=== PATIENT | female | born 1955 | race Caucasian/White ===

== ENCOUNTER 2017-05-15 11:04 | Inpatient (IN) ==
--- NOTE | 2017-05-15 11:27 | History & Physical Report ---
Date of Encounter: 05/15/17 Time of Encounter: 11:26 24 Hour HP Update - Instructions Instructions: If the History and Physical is less than 30 days old and was completed prior to A.M. admission and or procedure and has NOT been updated on calendar day of procedure please complete this update prior to performing procedure. - Update Patient reports changes in Medical Condition: No Changes in examination, assessment, or condition: No Changes in Medication: No Preop tests/diagnostics Reviewed: Yes Surgery Remains Indicated: Yes Consent for Planned Operative Procedure(s) Verified: Yes - Pre-Operative Checklist Preoperative Checklist Indicated: Yes Prophylactic Antibiotic Ordered: Yes Home Medications Include Beta Brad: No Beta Brad Taken Today (Day of Surgery): No Beta Brad Taken Yesterday (Day Prior to Surgery): No Is VTE Prophylaxis Indicated?: Yes
[2017-05-15] MEDS ORDERED: Lidocaine -MPF 1% 2 ML VIAL ID ONE (12:01)
[2017-05-15] MEDS ORDERED: Albuterol 2.5 MG/3 ML NEBULIZER IH ONE (12:02)
[2017-05-15] MEDS: Ringers Solution, Lactated 1,000 ML IVC SCH ×2 (12:19→19:44)
--- NOTE | 2017-05-15 12:21 | Anesthesia Evaluation PreOp ---
Date of Encounter: 05/15/17 Time of Encounter: 12:19 - Past History Planned Operation: l cea Cardiac History: HTN, Hyperlipidemia, Other (cad. echo 02/06: ef 60, nl rv, no valve dz. 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 History: CVA (prior to r cea, speech and balance diff, resolved), Other ( bipolar, lumbar arthropathy, doppler: L ICA 80-99%; ulnar neuropathy lue,) Other Medical History: Diabetes Type II (resolved?) Anesthesia History: No Prior Anesthetic Complications, Past Anesthesia (bilat le stents, cscope, r cea,) Alcohol Use: none Drug use: none Medications and Allergies Albuterol Sulfate [Ventolin Hfa] 2 puff IH Q4H PRN 01/26/16 [History] Aspirin [Adult Low Dose Aspirin EC] 81 mg PO HS 01/26/16 [History] Cyclobenzaprine [Flexeril] 10 mg PO QPM 01/26/16 [History] Doxazosin Mesylate [Cardura] 8 mg PO BID 01/26/16 [History] SUMAtriptan succinate [Imitrex] 50 mg PO ONCE PRN MDD 100 01/26/16 [History] Simvastatin [Zocor] 40 mg PO HS 01/26/16 [History] clonazePAM [Klonopin] 10 mg PO DAILY 01/26/16 [History] lamoTRIgine [Lamictal] 300 mg PO DAILY 01/26/16 [History] Clopidogrel [Plavix] 75 mg PO DAILY #30 tablet 02/02/16 [Rx] Nicotine Patch [Nicoderm] 14 mg TD DAILY #30 patch.td24 02/02/16 [Rx] Bisoprolol/HCTZ 10/6.25 [Ziac 10/6.25] 1 each PO BID 04/25/17 [History] Budesonide/Formoterol 80/4.5 [Symbicort 80/4.5] 2 puff IH BIDR 04/25/17 [ History] Cilostazol [Pletal] 100 mg PO BID 04/25/17 [History] Doxepin [Sinequan] 50 mg PO HS 04/25/17 [History] Doxepin [Sinequan] 50 mg PO HS 04/25/17 [History] Ibuprofen [Motrin] 800 mg PO Q8HR PRN 04/25/17 [History] RisperiDONE [Risperidone Odt] 1 mg PO DAILY PRN 04/25/17 [History] Venlafaxine HCl [Venlafaxine HCl ER] 150 mg PO DAILY 04/25/17 [History] Allergies Penicillins Allergy (Verified 03/22/16 06:50) Hives - Meds/Allergy Pre-op Review Medications Reviewed: Yes Allergies Reviewed: Yes Beta Blockers on Current Med List: No Anesthesia Results - Labs Laboratory Tests 05/07/17 05/07/17 05/14/17 14:32 14:32 08:43 Hgb Hct Plt Count PT 11.5 INR 1.1 APTT 50.6 H Sodium 135 L Potassium 3.9 Creatinine 0.81 05/14/17 08:43 Hgb 13.5 Hct 39.3 Plt Count 165 PT INR APTT Sodium Potassium Creatinine - Imaging EKG: report reviewed (sr) Anesthesia Exam O2 Sat Height 1.6 m Height 1.6 m Weight 88.904 kg Weight 88.904 kg O2 Sat by Pulse Oximetry 93 Vital Signs Temp Pulse Resp BP Pulse Ox 98.1 F 73 18 127/67 93 05/15/17 11:26 05/15/17 11:26 05/15/17 11:26 05/15/17 11:26 05/15/17 11:26 Height: 1.6 Weight: 89 NPO (# of Hours): >8 - HEENT Pupil (Motor): Pupils equal, EOMI Mallampati: III Teeth: Poor dentition Oral Opening: Greater than 3 - COMPOSITE LAMINATOR LOC: Oriented COMPOSITE LAMINATOR Motor: Normal RUE, Normal LUE, Normal RLE, Normal LLE, Normal Face COMPOSITE LAMINATOR Sensory: Normal: RUE, LUE, RLE, LLE, Face - Cardiac Rhythm: Regular Murmur: None - Pulmonary Breath Sounds: bilateral Clear Respiratory Effort: Symmetrical Anesthesia Assess/Plan ASA Score: 3 Modified Ramiro Scale for Level of Consciousness: Cooperative, oriented, and tranquil Anesthetic Plan: General Autologous Blood: Yes Monitoring Plan: Standard Monitors, A-Line Recovery Plan: PACU
[2017-05-15] MEDS ORDERED: CeFAZolin Pre 2,000 MG/100 ML 2,000 MG/100 ML BAG IVPB ONE (12:26)
[2017-05-15] MEDS ORDERED: Heparin 1,000 UNITS/500 mL NS 500 ML ONE (12:38)
[2017-05-15] MEDS ORDERED: Lidocaine 1% 20 ML MDV ONE ×2 (12:41→13:12)
[2017-05-15] MEDS ORDERED: Heparin 1,000 UNITS/500 mL NS 1,000 ML ONE (12:42)
[2017-05-15] MEDS ORDERED: Lidocaine -MPF 1% 5 ML AMPUL ONE (13:11)
[2017-05-15] MEDS ORDERED: Dexamethasone 4 MG/ML VIAL ONE (13:43)
[2017-05-15] MEDS ORDERED: *HR* Propofol 200 MG/20 ML VIAL IVP ONE (13:43)
[2017-05-15] MEDS ORDERED: *HR* FentaNYL (PF) 100 MCG/2 ML VIAL ONE (13:43)
[2017-05-15] MEDS ORDERED: Lidocaine -MPF 2% 2 ML VIAL ONE (13:43)
[2017-05-15] MEDS ORDERED: *HR* Phenylephrine 10 MG/ML VIAL ONE ×2 (13:43→15:10)
[2017-05-15] MEDS ORDERED: Ondansetron 4 MG/2 ML VIAL ONE (13:43)
[2017-05-15] MEDS ORDERED: *HR* Remifentanil 2 MG VIAL IVP ONE ×2 (13:43→18:05)
[2017-05-15] MEDS ORDERED: *HR* Rocuronium Bromide 50 MG/5 ML VIAL ONE (13:43)
[2017-05-15] MEDS ORDERED: Lidocaine -MPF 4% 5 ML AMPUL ONE (13:43)
[2017-05-15] MEDS ORDERED: *HR* Midazolam HCl 2 MG/2 ML VIAL ONE (13:43)
[2017-05-15] MEDS ORDERED: *HR* Succinylcholine 200 MG/10 ML VIAL IVP ONE (13:43)
[2017-05-15] MEDS ORDERED: *HR* Midazolam HCl 5 MG/5 ML VIAL IVP ONE (14:17)
--- NOTE | 2017-05-15 14:20 | Anesthesia Procedures ---
Date of Encounter: 05/15/17 Time of Encounter: 14:18 Procedures: Anesthesia - Arterial Line Consent obtained: written consent Time out performed: Yes Sedation: Versed (mg): 4 Sedation: Fentanyl (mcg): 100 Supplemental Oxygen via Nasal Cannula (L/min): 2 Local Anesthetic: Lidocaine 1% Amount of Anesthetic used (mls): 3 Size (Gauge): 20 Length (inches): 1 3/4 Technique Used: sterile prep, guide wire technique Post-Procedure: line taped into place, dry sterile dressing placed Patient tolerated procedure: well Complications: other (unable to access r radial or r ulnar 2/2 severe atherosclerosis, small vessels. considered femoral but pt has ble stents. forced to place l radial a line on operative side under u/s guidance) Site: Radial L Vitals: see or note
[2017-05-15] MEDS ORDERED: EPHEDrine 50 MG/ML VIAL ONE (14:30)
--- NOTE | 2017-05-15 14:36 | Operative Note ---
Date of procedure: 05/15/17 Pre-op diagnosis: left carotid stenosis Post-op diagnosis: same Procedure: left carotid endarteretomy with Fr shunt and patch angioplasty Complications: none Anesthesia: CARRIEA Surgeon: Mckay Pina Estimated blood loss (cc): 200 Specimen: none Condition: stable Disposition: PACU Procedure in Detail: History Faith Mace is a 62-year-old white female with a history of diabetes and multiple vascular risk factors. She has had multiple procedures in the past including lower extremity interventions as well as a right carotid endarterectomy. The patient has been followed without duplex scanning. This demonstrated a significant change in the left internal carotid artery. The patient underwent angiography and this demonstrated an occluded left external carotid artery and a high-grade stenosis of the left internal carotid artery. The patient now comes to the operating room for surgery. Procedure After informed consent was obtained the patient was taken to the operating room. An arterial line was placed. There was difficulty obtaining the arterial access. The patient was then introduced and general endotracheal anesthesia was established. The left neck was then sterilely prepped and draped. A timeout protocol was observed. An oblique incision was then made on the left neck. The patient's neck was very short ends. Difficult. The dissection was also difficult because a number of veins were present and there was some degree of venous hypertension present as well. The bifurcation was also low and a portion of the omohyoid muscle needed to be divided in order to satisfactorily exposed the common carotid artery. After this relatively tedious dissection was finally accomplished and the carotid arteries were dissected and selectively controlled 5000 units of heparin were administered intravenously. After 3 minute delay the internal carotid artery was clamped first. The other vessels were then clamped. Blood blade knife and Velázquez scissors were used to open the artery. An 8 Serbian shunt was then inserted atraumatically. Patency of the shunt was confirmed by the use of intraoperative Doppler. Evaluation the plaque revealed a very dense plaque that was partially calcified at the orifice of the internal carotid artery. The external carotid artery appeared occluded. The endarterectomy was begun at the distal common carotid artery. A dissection plane was established. This was carried circumferentially. The dissection was then carried proximally distally. The external carotid and superior thyroid were endarterectomized. Retrograde bleeding was established from the left external carotid artery. The internal carotid artery requiring extension of the arteriotomy in order to satisfactorily visualize the endpoint. After this was done no tacking sutures were necessary. Likewise the proximal arteriotomy required extension onto the common carotid artery. Again there was a significant amount of plaque that was able to be debrided and endarterectomized in no tacking sutures were necessary. A heme shield patch was then sewn into position using 2 6-0 Prolene sutures. Leaving a small space open the shunt was clamped divided and removed. The final few sutures were then placed. The internal was allowed to backbleed and reclamped. The external and common were opened and finally the internal was reopened. The patient had excellent pulsations and Doppler signals through all 3 of the carotid arteries. The patient however had significant oozing through the needle holes. A prolonged period of over 40 minutes of application of topical thrombostatic agents as well as administration of 2 doses of protamine were necessary in order to stop this oozing and control the localized bleeding. The wound was then irrigated with antibiotic containing solution. A superficial cervical block using half percent Marcaine was performed. The wound was then closed in layers using absorbable suture. No drains were placed. The patient was reversed anesthesia and excreted in the operating room. She was found to be neurologically intact. She was taken to the recovery room in stable condition. Estimated blood loss for the procedure was 200 mL. There are no specimens.
[2017-05-15] MEDS ORDERED: *HR* Heparin 5,000 UNIT/ML VIAL ONE ×2 (15:37→16:49)
[2017-05-15] MEDS ORDERED: *HR* Labetalol 20 MG/4 ML SYRINGE IVP PRN (16:06)
[2017-05-15] MEDS ORDERED: *HR* HYDROmorphone (PF) 1 MG/ML SYRINGE IVP PRN (16:06)
[2017-05-15] MEDS ORDERED: Ondansetron 4 MG/2 ML VIAL IVP ONE (16:06)
[2017-05-15] MEDS ORDERED: *HR* Promethazine 25 MG/ML VIAL IVP PRN (16:06)
[2017-05-15] MEDS ORDERED: Protamine Sulfate 50 MG/5 ML VIAL IVP ONE (17:28)
[2017-05-15] MEDS ORDERED: Acetaminophen IV 1,000 MG/100 ML INFUS..BTL IVPB ONE (19:32)
--- NOTE | 2017-05-15 19:53 | Anesthesia Evaluation Post Op ---
Date of Encounter: 05/15/17 Time of Encounter: 19:53 - Vital Signs Vital Signs: Vital Signs/O2 Sat, Most Current Temp Pulse Resp BP Pulse Ox 98.6 F 70 16 103/48 92 05/15/17 19:34 05/15/17 19:44 05/15/17 19:44 05/15/17 19:44 05/15/17 19:44 - Lungs Lungs: Clear Ascult./Percussion - Cardiovascular Regular Rate - Mental Status Mental Status: Alert & Oriented, Answers Appropriately - Pain Pain Scale: 5 Pain Scale used: Numeric (1 - 10) - Nausea Vomiting Nausea Vomiting: Not Present - Hydration Hydration: NPO, Unable to void - Discharge PostOp Status: Transfer Patient to floor
[2017-05-15] MEDS ORDERED: SUMAtriptan succinate 50 MG TABLET PO PRN (20:17)
[2017-05-15] MEDS ORDERED: Ibuprofen 800 MG TABLET PO PRN (20:17)
[2017-05-15] MEDS ORDERED: Acetaminophen 325 MG TABLET PO PRN (20:17)
[2017-05-15] MEDS ORDERED: *HR* Morphine 2 MG/ML SYRINGE IVP PRN ×2 (20:17)
[2017-05-15] MEDS ORDERED: ceFAZolin 2,000 MG in D5% in Water 100 ML IVPB SCH (20:17)
[2017-05-15] MEDS ORDERED: RisperiDONE-M 1 MG TAB.RAPDIS PO PRN (20:17)
[2017-05-15] MEDS ORDERED: Naloxone 0.4 MG/ML INJ IVP PRN (20:17)
[2017-05-15] MEDS ORDERED: Ondansetron 4 MG/2 ML VIAL IVP PRN (20:17)
[2017-05-15] MEDS ORDERED: Aspirin Enteric Coated 81 MG Tablet PO SCH (21:00)
[2017-05-15] MEDS: Budesonide/Formoterol 80/4.5 MDI IH SCH (21:02)
[2017-05-15] MEDS: *HR* HYDROcodone/Acet 5/325 mg TABLET PO PRN (21:24)
[2017-05-15] MEDS: clonazePAM 1 MG TABLET PO PRN (21:29)
[2017-05-15] MEDS: Bisoprolol/HCTZ 10/6.25 TABLET PO SCH (21:39)
[2017-05-16] MEDS: *HR* HYDROcodone/Acet 7.5/325 mg TABLET PO PRN ×2 (02:21→12:27)
[2017-05-16 04:14] LABS: Hemoglobin 10.2 g/dL (11.5-15.4); Immature Granulocytes % 0.2 % (0-4); Lymphocytes # 0.6 K/mcL (0.6-4.6); Lymphocytes % 10.4 %; Mean Corpuscular HGB Conc 32.9 g/dL (31.6-35.5); Mean Corpuscular Hemoglobin 31.6 pg (28.0-33.3); Mean Platelet Volume 9.4 fL (9.4-12.4); Monocytes # 0.3 K/mcL (0.0-1.3); Monocytes % 4.3 %; Platelet Count 139 K/mcL (140-400); Red Blood Count 3.23 M/mcL (3.82-4.97); Red Cell Distribution Width 12.9 % (11.5-14.5); Segmented Neutrophils % 85.1 %
[2017-05-16 04:27] LABS: BUN/Creatinine Ratio 20 (6-26); Blood Urea Nitrogen 16 mg/dL (7-20); Calcium 8.9 mg/dL (8.6-10.8); Carbon Dioxide 28 mEq/L (19-29); Chloride 99 mEq/L (98-109); Glucose 138 mg/dL (70-99); Osmolality,Calculated 281 (280-300); Potassium 4.3 mEq/L (3.5-4.5); Sodium 134 mEq/L (136-145); eGFR For African Americans > 60 (> 60); eGFR For Non-African Americans > 60 (> 60)
[2017-05-16] MEDS: ceFAZolin 2,000 MG in D5% in Water 100 ML IVPB SCH ×2 (06:15→15:00)
[2017-05-16] MEDS: Budesonide/Formoterol 80/4.5 MDI IH SCH (08:00)
[2017-05-16] MEDS: clonazePAM 1 MG TABLET PO PRN (08:08)
[2017-05-16] MEDS: *HR* HYDROcodone/Acet 5/325 mg TABLET PO PRN ×2 (08:12→15:53)
[2017-05-16] MEDS: Bisoprolol/HCTZ 10/6.25 TABLET PO SCH (08:15)
[2017-05-16] MEDS ORDERED: lamoTRIgine 100 MG TABLET PO SCH (09:00)
[2017-05-16] MEDS ORDERED: Nicotine 14 MG PATCH.TD24 TD SCH (09:00)
[2017-05-16 11:29] VITALS: BP 96/53
--- NOTE | 2017-05-16 15:45 | Discharge Summary ---
Date of Encounter: 05/16/17 Time of Encounter: 14:30 - Discharge Diagnosis (1) Diabetes mellitus type 2 with complications Priority: Secondary Status: Chronic Comments: Patient under medical care for long-term diabetes Qualifiers: Diabetes mellitus fpc insulin use: without fpc use Qualified Code(s): E11.8 - Type 2 diabetes mellitus with unspecified complications (2) COPD (chronic obstructive pulmonary disease) Priority: Secondary Status: Chronic Comments: Patient under medical care for long-term COPD Qualifiers: COPD type: unspecified COPD Qualified Code(s): J44.9 - Chronic obstructive pulmonary disease, unspecified (3) Carotid artery stenosis with cerebral infarction Priority: Primary Status: Acute Comments: High grade left internal carotid artery stenosis and external carotid artery occlusion on duplex and angiographic evaluation. Patient is status post right carotid endarterectomy in 2016. Patient admitted for elective left carotid endarterectomy. - Discharge Medications Home Medications: Albuterol Sulfate [Ventolin Hfa] 2 puff IH Q4H PRN 01/26/16 [History] Aspirin [Adult Low Dose Aspirin EC] 81 mg PO HS 01/26/16 [History] Cyclobenzaprine [Flexeril] 10 mg PO QPM 01/26/16 [History] Doxazosin Mesylate [Cardura] 8 mg PO BID 01/26/16 [History] SUMAtriptan succinate [Imitrex] 50 mg PO ONCE PRN MDD 100 01/26/16 [History] Simvastatin [Zocor] 40 mg PO HS 01/26/16 [History] clonazePAM [Klonopin] 1 mg PO TID PRN 01/26/16 [History] lamoTRIgine [Lamictal] 100 mg PO DAILY 01/26/16 [History] Clopidogrel [Plavix] 75 mg PO DAILY #30 tablet 02/02/16 [Rx] Nicotine Patch [Nicoderm] 14 mg TD DAILY #30 patch.td24 02/02/16 [Rx] Bisoprolol/HCTZ 10/6.25 [Ziac 10/6.25] 1 each PO BID 04/25/17 [History] Budesonide/Formoterol 80/4.5 [Symbicort 80/4.5] 2 puff IH BIDR 04/25/17 [ History] Cilostazol [Pletal] 100 mg PO BID 04/25/17 [History] Doxepin [Sinequan] 50 mg PO HS 04/25/17 [History] Ibuprofen [Motrin] 800 mg PO Q8HR PRN 04/25/17 [History] RisperiDONE [Risperidone Odt] 1 mg PO DAILY PRN 04/25/17 [History] Citalopram Hydrobromide [Celexa] 40 mg PO DAILY 05/15/17 [History] HYDROcodone/Acet 7.5/325 mg [[place] 7.5-325 mg] 1 tab PO Q6H PRN 05/15/17 [ History] Allergies/Adverse Reactions: Allergies Penicillins Allergy (Verified 05/15/17 12:40) Hives Date of admission: 05/15/17 20:17 Primary care physician: Natalio Martinez CNP Consults: 05/16/17 07:54 Consult to [employer] [CONS] Routine Reason for SW Consult: Requires Home O2, potential discharge this date Procedure(s) Performed: Left carotid endarterectomy with patch angioplasty. Discharging clinician: Mckay Pina Anticipated date of discharge: 05/16/17 - Patient Status Disposition: Home, Self-Care Condition: Fair Functional capacity at discharge: independent ambulation Overall status at discharge: patient is progressing back to baseline - Discharge Instructions Follow Up With: Natalio Martinez CNP [Primary Care Provider] - (SENT REQUEST ON 05-15-17 @ [id number]) Mckay Pina MD [Partnered Physician] - 06/04/17 8:45 am Additional Instructions: Use ice pack on left neck for the next 3-4 days. Sleep with head elevated for the next 3-4 days area No automobile driving, lifting greater than 10 pounds, or manual labor. Patient is to resume her usual home medications. Patient is to keep her left neck incision dry for total of 5 days following surgery. Patient is to take incentive spirometer home with her into use for the next 2 weeks approximate 1010 times per hour while awake. - Diet and Activity Activity: increase activity as tolerated Diet: diabetic diet - Hospital Course Hospital course: Ms. Mace is a 62 year old female With known severe vascular disease. The patient has had a right carotid endarterectomy 2016. She has had multiple lower extremity interventions. She has a history of tobacco abuse and COPD and hypertension and hyperlipidemia and diabetes. The patient was admitted and underwent a left carotid endarterectomy under general endotracheal anesthesia. The patient was neurologically intact postoperatively. She was stable on the afternoon of postoperative day #1. Of note the patient's O2 was low and off of O2 supplementation her O2 saturation would sometimes drifted below 90%. She adamantly refused O2 therapy at home and this was therefore not instituted. The patient was felt fit for discharge on the afternoon of postoperative day #1. Her medications and diet and exercise and wound care were reviewed with the patient prior to discharge. The patient voiced understanding of these issues. - Time Spent with Patient Total time spent providing and/or coordinating discharge services: Exam Vital Signs, Last 4 Hours Temp Pulse Resp BP Pulse Ox 05/16/17 12:00 98.0 F 84 16 96/53 90 05/16/17 11:57 16 90 General: Present: Conversant, No Apparent Distress, Well developed, Well nourished HEENT: Present: Normocephaly, Trachea midline, Other (The patient has mild to moderate swelling of the left neck with ecchymosis present. She has a chronic Plavix taker and the ecchymosis is expected in this clinical circumstances. The swelling does not compromise the patient's airway.) Cardiac: Present: Reg Rate and Rhythm. Absent: No Murmur (Patient has a 3/6 systolic ejection murmur heard best over the aortic valve position.) Lungs: Present: Decreased breath sounds Neuro: Present: Alert and responsive, No focal deficits noted, Cranial nerves grossly intact, Motor nerves grossly intact, Sensory nerves grossly intact Vascular: Present: Surgical incisions (Left neck surgical incision is clean and dry. As noted elsewhere the patient has some ecchymosis as expected with her Plavix use.) - VTE Documentation of Mechanical Device: Intermittent pneumatic compression device
== END 2017-05-16 16:40 | disposition home or self-care (01) | DRG 39 ==
LOC: SAMDAY 11:04 → 1NENULAB 20:17 → 2NNU 20:28
PROVIDERS: ADMIT Surgery Vascular Surgery; ATTEND Surgery Vascular Surgery

== ENCOUNTER 2017-06-04 09:13 | Inpatient (IN) ==
--- NOTE | 2017-06-04 09:18 | Emergency Department Note ---
Disposition Clinical Impression: CHF exacerbation, COPD exacerbation, Dyspnea Disposition: Admitted As Inpatient Condition: Good General Adult HPI - General Stated complaint: C/P Time Seen by Provider: 06/04/17 09:14 - Related Data Home Medications Medication Instructions Recorded Confirmed Albuterol Sulfate [Ventolin Hfa] 2 puff IH Q4H PRN 01/26/16 06/04/17 Aspirin [Adult Low Dose Aspirin EC] 81 mg PO HS 01/26/16 06/04/17 Cyclobenzaprine [Flexeril] 10 mg PO QPM 01/26/16 06/04/17 Doxazosin Mesylate [Cardura] 8 mg PO BID 01/26/16 06/04/17 SUMAtriptan succinate [Imitrex] 50 mg PO ONCE PRN MDD 100 01/26/16 06/04/17 Simvastatin [Zocor] 40 mg PO HS 01/26/16 06/04/17 clonazePAM [Klonopin] 1 mg PO TID PRN 01/26/16 06/04/17 lamoTRIgine [Lamictal] 100 mg PO DAILY 01/26/16 06/04/17 Bisoprolol/HCTZ 10/6.25 [Ziac 1 tab PO BID 04/25/17 06/04/17 10/6.25] Budesonide/Formoterol 80/4.5 2 puff IH BIDR 04/25/17 06/04/17 [Symbicort 80/4.5] Cilostazol [Pletal] 100 mg PO BID 04/25/17 06/04/17 Doxepin [Sinequan] 50 mg PO HS 04/25/17 06/04/17 Ibuprofen [Motrin] 800 mg PO Q8HR PRN 04/25/17 06/04/17 RisperiDONE [Risperidone Odt] 1 mg PO DAILY PRN 04/25/17 06/04/17 Citalopram Hydrobromide [Celexa] 40 mg PO DAILY 05/15/17 06/04/17 HYDROcodone/Acet 7.5/325 mg [[place] 1 tab PO Q6H PRN 05/15/17 06/04/17 7.5-325 mg] Previous Rx's Medication Instructions Recorded Clopidogrel [Plavix] 75 mg PO DAILY #30 tablet 02/02/16 Allergies Allergy/AdvReac Type Severity Reaction Status Date / Time Penicillins Allergy Hives Verified 05/15/17 12:40 Past Medical History - Past Medical History Medical history: Reports: COPD, diabetes, hyperlipidemia, hypertension, migraine , peripheral artery disease Surgical history: Reports: other Psychiatric history: Reports: anxiety, bipolar, depression - Social History Smoking Status: Current every day smoker Smokeless Tobacco Status: No Alcohol use: Reports: none Drug use: Reports: none Course Vital Signs Temperature 97.9 F 06/04/17 09:17 Pulse Rate 71 06/04/17 09:17 Respiratory Rate 18 06/04/17 09:17 Blood Pressure 157/84 06/04/17 09:17 O2 Sat by Pulse Oximetry 89 06/04/17 09:17 Temperature 98.2 F 06/04/17 16:14 Pulse Rate 90 06/04/17 16:14 Respiratory Rate 20 06/04/17 16:14 Blood Pressure 119/74 06/04/17 16:14 O2 Sat by Pulse Oximetry 89 06/04/17 16:14 Oxygen Delivery Oxygen Delivery Nasal Cannula Medical Decision Making - Lab Data Result diagrams: 06/04/17 09:27 06/04/17 10:19 Lab Results 06/04/17 06/04/17 06/04/17 Range/Units 09:27 09:27 09:27 WBC 5.8 (4.3-11.1) K/mcL RBC 3.73 L (3.82-4.97) M/mcL Hgb 11.7 (11.5-15.4) g/dL Hct 35.7 (35.3-44.9) % MCV 95.7 (83.0-100.0) fL MCH 31.4 (28.0-33.3) pg MCHC 32.8 (31.6-35.5) g/dL RDW 13.2 (11.5-14.5) % Plt Count 209 (140-400) K/mcL MPV 9.4 (9.4-12.4) fL Immature Gran % 0.5 (0-4) % Seg Neutrophils % 78.8 % Lymphocytes % 15.0 % Monocytes % 5.7 % Eosinophils % 0.0 % Basophils % 0.0 % Neutrophils # 4.6 (1.6-8.9) K/mcL Lymphocytes # 0.9 (0.6-4.6) K/mcL Monocytes # 0.3 (0.0-1.3) K/mcL Eosinophils # 0.0 (0.0-0.6) K/mcL Basophils # 0.0 (0.0-0.2) K/mcL PT 12.2 H (9.4-12.1) Seconds INR 1.1 APTT 41.0 H (26.0-36.0) Seconds D-Dimer 2634 H (0-500) ng/mLFEU Sodium (136-145) mEq/L Potassium (3.5-4.5) mEq/L Chloride (98-109) mEq/L Carbon Dioxide (19-29) mEq/L BUN (7-20) mg/dL Creatinine (0.57-1.11) mg/dL Est GFR ( Amer) (> 60) Est GFR (Non-Af Amer) (> 60) BUN/Creatinine Ratio (6-26) Glucose (70-99) mg/dL Calculated Osmolality (280-300) Calcium (8.6-10.8) mg/dL Troponin I (0-0.03) ng/mL B-Natriuretic Peptide 354 H (0-100) pg/mL Specimen Rejected 06/04/17 06/04/17 06/04/17 Range/Units 09:27 10:19 10:19 WBC (4.3-11.1) K/mcL RBC (3.82-4.97) M/mcL Hgb (11.5-15.4) g/dL Hct (35.3-44.9) % MCV (83.0-100.0) fL MCH (28.0-33.3) pg MCHC (31.6-35.5) g/dL RDW (11.5-14.5) % Plt Count (140-400) K/mcL MPV (9.4-12.4) fL Immature Gran % (0-4) % Seg Neutrophils % % Lymphocytes % % Monocytes % % Eosinophils % % Basophils % % Neutrophils # (1.6-8.9) K/mcL Lymphocytes # (0.6-4.6) K/mcL Monocytes # (0.0-1.3) K/mcL Eosinophils # (0.0-0.6) K/mcL Basophils # (0.0-0.2) K/mcL PT (9.4-12.1) Seconds INR APTT (26.0-36.0) Seconds D-Dimer (0-500) ng/mLFEU Sodium 128 L (136-145) mEq/L Potassium 3.7 (3.5-4.5) mEq/L Chloride 92 L (98-109) mEq/L Carbon Dioxide 30 H (19-29) mEq/L BUN 12 (7-20) mg/dL Creatinine 0.65 (0.57-1.11) mg/dL Est GFR ( Amer) > 60 (> 60) Est GFR (Non-Af Amer) > 60 (> 60) BUN/Creatinine Ratio 18 (6-26) Glucose 109 H (70-99) mg/dL Calculated Osmolality 266 L (280-300) Calcium 9.2 (8.6-10.8) mg/dL Troponin I 0.02 (0-0.03) ng/mL B-Natriuretic Peptide (0-100) pg/mL Specimen Rejected Hemolyzed Attestation Statement - Attestation Attestation: I examined this patient and my medical decision-making was reviewed with the QUALITY ASSISTANT/PA/Advanced Practice Nurse/Resident Physician. I agree with the documented findings, disposition and treatment plan as described except to the extent set forth below. [id number] time provided Patient complains of dyspnea. She is visibly dyspneic at the time of my exam. She also complains of edema. Patient seen and evaluated in conjunction with the resident physician Dr. Ribeiro
[2017-06-04] MEDS ORDERED: methylPREDNISolone 125 MG in 0.9 % Sodium Chloride 100 ML IVPB ONE (09:28)
[2017-06-04] MEDS ORDERED: Ipratropium/Albuterol Neb 3 ML IH ONE (09:28)
[2017-06-04] MEDS ORDERED: methylPREDNISolone 125 MG/2 ML VIAL IVP ONE (09:45)
[2017-06-04 09:47] LABS: INR 1.1; Prothrombin Time 12.2 Seconds (9.4-12.1)
--- NOTE | 2017-06-04 09:47 | Emergency Department Note ---
Disposition Clinical Impression: COPD exacerbation CHF exacerbation Qualifiers: Congestive heart failure type: unspecified congestive heart failure type Qualified Code(s): I50.9 - Heart failure, unspecified Dyspnea Qualifiers: Dyspnea type: unspecified Qualified Code(s): R06.00 - Dyspnea, unspecified Disposition: Admitted As Inpatient Condition: Good Referrals: Natalio Martinez CNP [Primary Care Provider] - General Adult HPI - General Chief complaint: ED Chest Pain Stated complaint: C/P Time Seen by Provider: 06/04/17 09:14 Source: patient Limitations: no limitations Nursing Notes Reviewed: Yes Vital Signs Reviewed: Yes - History of Present Illness HPI Narrative: 62-year-old female who reports 2-3 days of worsening dyspnea with exertion. She also admits to a tight feeling in her chest. She has a significant past medical history of diabetes, COPD, hyperlipidemia. In addition she just had a left carotid endarterectomy on May 15. She is not having increasing pain. She admits to generalized edema which is new and the shortness of breath. She is also had a dry cough which has not been productive. She denies having a fever. Her current medications include albuterol, aspirin, Flexeril, Imitrex, statin, Klonopin, doxepin, risperidone, Mcgraw. She does have a history of COPD and has been using her albuterol without much effect Radiation: non-radiation Pain Scale: 4 Consistency: constant Worsens with: movement Associated symptoms: Reports: denies other symptoms Treatments Prior to Arrival: none - Related Data Home Medications Medication Instructions Recorded Confirmed Albuterol Sulfate [Ventolin Hfa] 2 puff IH Q4H PRN 01/26/16 05/15/17 Aspirin [Adult Low Dose Aspirin EC] 81 mg PO HS 01/26/16 05/15/17 Cyclobenzaprine [Flexeril] 10 mg PO QPM 01/26/16 05/15/17 Doxazosin Mesylate [Cardura] 8 mg PO BID 01/26/16 05/15/17 SUMAtriptan succinate [Imitrex] 50 mg PO ONCE PRN MDD 100 01/26/16 05/15/17 Simvastatin [Zocor] 40 mg PO HS 01/26/16 05/15/17 clonazePAM [Klonopin] 1 mg PO TID PRN 01/26/16 05/15/17 lamoTRIgine [Lamictal] 100 mg PO DAILY 01/26/16 05/15/17 Bisoprolol/HCTZ 10/6.25 [Ziac 1 each PO BID 04/25/17 05/15/17 10/6.25] Budesonide/Formoterol 80/4.5 2 puff IH BIDR 04/25/17 05/15/17 [Symbicort 80/4.5] Cilostazol [Pletal] 100 mg PO BID 04/25/17 05/15/17 Doxepin [Sinequan] 50 mg PO HS 04/25/17 05/15/17 Ibuprofen [Motrin] 800 mg PO Q8HR PRN 04/25/17 05/15/17 RisperiDONE [Risperidone Odt] 1 mg PO DAILY PRN 04/25/17 05/15/17 Citalopram Hydrobromide [Celexa] 40 mg PO DAILY 05/15/17 05/15/17 HYDROcodone/Acet 7.5/325 mg [[place] 1 tab PO Q6H PRN 05/15/17 05/15/17 7.5-325 mg] Previous Rx's Medication Instructions Recorded Clopidogrel [Plavix] 75 mg PO DAILY #30 tablet 02/02/16 Allergies Allergy/AdvReac Type Severity Reaction Status Date / Time Penicillins Allergy Hives Verified 05/15/17 12:40 All systems ED: reviewed and negative except as stated. Constitutional: Denies: fever Eyes: Denies: vision change ENT ED: Denies: throat pain Cardiovascular: Reports: edema, other (Chest pressure). Denies: chest pain Respiratory: Reports: cough, dyspnea Gastrointestinal: Denies: abdominal pain, nausea, vomiting Musculoskeletal: Denies: back pain Integumentary: Denies: rash Endocrine: Denies: fatigue Past Medical History - Past Medical History Medical history: Reports: COPD, diabetes, hyperlipidemia, hypertension, migraine , peripheral artery disease Surgical history: Reports: other Psychiatric history: Reports: anxiety, bipolar, depression - Social History Smoking Status: Current every day smoker Smokeless Tobacco Status: No Alcohol use: Reports: none Drug use: Reports: none Physical Exam - General Limitations: no limitations General appearance: alert - Head Head exam: atraumatic - Eye Eye exam: Present: normal appearance, PERRL, EOMI - ENT ENT exam: normal exam - Neck Neck exam: Present: normal inspection - Respiratory Respiratory exam: Present: other (Diminished breath sounds bilaterally. Some wheezing is present) - Cardiovascular Cardiovascular exam: Present: regular rate, normal rhythm - Abdominal Exam Abdominal exam: Present: soft, Non-Tender - Extremities Exam Extremities exam: Present: other (3+ lower extremity edema) - Neurological Exam Neurological exam: Present: alert, oriented X3 - Psychiatric Psychiatric exam: Present: normal affect, normal mood - Skin Skin exam: Present: warm, dry Course Course Narrative: I concerned that she has developed congestive heart failure. She does not have a known cardiac history. We will do a d-dimer to rule out pulmonary embolism as she is low clinical suspicion. In addition we will do a cardiac workup. She also seems to be having a flare of her COPD and we will treat her with nebulizers and Solu-Medrol. Her SPO2 is 89% on room air. She does not wear oxygen at home. During her last hospital stay her SPO2 was between 90 and 92%. D dimer elevated, will CTA chest. Creatinine is normal. Will give lasix and topical nitroglycerin for CHF exacerbation. CTA of the chest is pending. The patient will be admitted to the hospitalist service. She feels significantly better after the duo nebs and Solu-Medrol CTA is negative for PE. CHF is present. Vital Signs Temperature 97.9 F 06/04/17 09:17 Pulse Rate 71 06/04/17 09:17 Respiratory Rate 18 06/04/17 09:17 Blood Pressure 157/84 06/04/17 09:17 O2 Sat by Pulse Oximetry 89 06/04/17 09:17 Temperature 97.9 F 06/04/17 09:17 Pulse Rate 70 06/04/17 11:11 Respiratory Rate 18 06/04/17 12:06 Blood Pressure 166/74 06/04/17 12:06 O2 Sat by Pulse Oximetry 97 06/04/17 11:11 Oxygen Delivery Oxygen Delivery Nasal Cannula Medical Decision Making - Medical Records Medical records reviewed: Yes I reviewed the patient's medical records. - Lab Data Lab results reviewed: Yes I reviewed the patient's lab results. Result diagrams: 06/04/17 09:27 06/04/17 10:19 Lab Results 06/04/17 06/04/17 06/04/17 Range/Units 09:27 09:27 09:27 WBC 5.8 (4.3-11.1) K/mcL RBC 3.73 L (3.82-4.97) M/mcL Hgb 11.7 (11.5-15.4) g/dL Hct 35.7 (35.3-44.9) % MCV 95.7 (83.0-100.0) fL MCH 31.4 (28.0-33.3) pg MCHC 32.8 (31.6-35.5) g/dL RDW 13.2 (11.5-14.5) % Plt Count 209 (140-400) K/mcL MPV 9.4 (9.4-12.4) fL Immature Gran % 0.5 (0-4) % Seg Neutrophils % 78.8 % Lymphocytes % 15.0 % Monocytes % 5.7 % Eosinophils % 0.0 % Basophils % 0.0 % Neutrophils # 4.6 (1.6-8.9) K/mcL Lymphocytes # 0.9 (0.6-4.6) K/mcL Monocytes # 0.3 (0.0-1.3) K/mcL Eosinophils # 0.0 (0.0-0.6) K/mcL Basophils # 0.0 (0.0-0.2) K/mcL PT 12.2 H (9.4-12.1) Seconds INR 1.1 APTT 41.0 H (26.0-36.0) Seconds D-Dimer 2634 H (0-500) ng/mLFEU Sodium (136-145) mEq/L Potassium (3.5-4.5) mEq/L Chloride (98-109) mEq/L Carbon Dioxide (19-29) mEq/L BUN (7-20) mg/dL Creatinine (0.57-1.11) mg/dL Est GFR ( Amer) (> 60) Est GFR (Non-Af Amer) (> 60) BUN/Creatinine Ratio (6-26) Glucose (70-99) mg/dL Calculated Osmolality (280-300) Calcium (8.6-10.8) mg/dL Troponin I (0-0.03) ng/mL B-Natriuretic Peptide 354 H (0-100) pg/mL Specimen Rejected 06/04/17 06/04/17 06/04/17 Range/Units 09:27 10:19 10:19 WBC (4.3-11.1) K/mcL RBC (3.82-4.97) M/mcL Hgb (11.5-15.4) g/dL Hct (35.3-44.9) % MCV (83.0-100.0) fL MCH (28.0-33.3) pg MCHC (31.6-35.5) g/dL RDW (11.5-14.5) % Plt Count (140-400) K/mcL MPV (9.4-12.4) fL Immature Gran % (0-4) % Seg Neutrophils % % Lymphocytes % % Monocytes % % Eosinophils % % Basophils % % Neutrophils # (1.6-8.9) K/mcL Lymphocytes # (0.6-4.6) K/mcL Monocytes # (0.0-1.3) K/mcL Eosinophils # (0.0-0.6) K/mcL Basophils # (0.0-0.2) K/mcL PT (9.4-12.1) Seconds INR APTT (26.0-36.0) Seconds D-Dimer (0-500) ng/mLFEU Sodium 128 L (136-145) mEq/L Potassium 3.7 (3.5-4.5) mEq/L Chloride 92 L (98-109) mEq/L Carbon Dioxide 30 H (19-29) mEq/L BUN 12 (7-20) mg/dL Creatinine 0.65 (0.57-1.11) mg/dL Est GFR ( Amer) > 60 (> 60) Est GFR (Non-Af Amer) > 60 (> 60) BUN/Creatinine Ratio 18 (6-26) Glucose 109 H (70-99) mg/dL Calculated Osmolality 266 L (280-300) Calcium 9.2 (8.6-10.8) mg/dL Troponin I 0.02 (0-0.03) ng/mL B-Natriuretic Peptide (0-100) pg/mL Specimen Rejected Hemolyzed - Radiology Data Radiology results reviewed: Yes I reviewed the patient's radiology results. - EKG Data EKG #1 EKG attestation: Yes I reviewed and interpreted this EKG. EKG shows normal: sinus rhythm Rate: normal Rhythm: NSR When compared to previous EKG there are: no significant changes Interpretation: no acute changes
[2017-06-04 10:02] LABS: Hematocrit 35.7 % (35.3-44.9); Hemoglobin 11.7 g/dL (11.5-15.4); Immature Granulocytes % 0.5 % (0-4); Lymphocytes # 0.9 K/mcL (0.6-4.6); Mean Corpuscular HGB Conc 32.8 g/dL (31.6-35.5); Mean Corpuscular Hemoglobin 31.4 pg (28.0-33.3); Mean Corpuscular Volume 95.7 fL (83.0-100.0); Mean Platelet Volume 9.4 fL (9.4-12.4); Monocytes # 0.3 K/mcL (0.0-1.3); Monocytes % 5.7 %; Neutrophils # 4.6 K/mcL (1.6-8.9); Platelet Count 209 K/mcL (140-400); Red Blood Count 3.73 M/mcL (3.82-4.97); Red Cell Distribution Width 13.2 % (11.5-14.5); Segmented Neutrophils % 78.8 %
[2017-06-04 10:46] LABS: BUN/Creatinine Ratio 18 (6-26); Blood Urea Nitrogen 12 mg/dL (7-20); Calcium 9.2 mg/dL (8.6-10.8); Carbon Dioxide 30 mEq/L (19-29); Chloride 92 mEq/L (98-109); Glucose 109 mg/dL (70-99); Osmolality,Calculated 266 (280-300); Potassium 3.7 mEq/L (3.5-4.5); Sodium 128 mEq/L (136-145); eGFR For African Americans > 60 (> 60); eGFR For Non-African Americans > 60 (> 60)
[2017-06-04] MEDS ORDERED: Nitroglycerin 1 INCH/GM PACKET TP ONE (10:50)
[2017-06-04] MEDS ORDERED: Furosemide 40 MG/4 ML VIAL IVP ONE (10:50)
[2017-06-04] MEDS ORDERED: Ondansetron ODT 4 MG TAB.RAPDIS SL PRN (12:59)
[2017-06-04] MEDS ORDERED: Naloxone 0.4 MG/ML INJ IVP PRN (12:59)
[2017-06-04] MEDS ORDERED: Acetaminophen 325 MG TABLET PO PRN (12:59)
[2017-06-04] MEDS ORDERED: RisperiDONE-M 1 MG TAB.RAPDIS PO PRN (13:05)
[2017-06-04] MEDS ORDERED: Albuterol 2.5 MG/3 ML NEBULIZER IH PRN (13:08)
--- NOTE | 2017-06-04 13:24 | Internal Med History&Physical ---
Date of Encounter: 06/05/17 Time of Encounter: 13:21 Assessment and Plan (1) Acute congestive heart failure Current visit: Yes Status: Acute Patient presented with increasing dyspnea and swelling over the last several days. Chest x-ray and CTA consistent with congestive heart failure BNP elevated to 354. EKG showed normal sinus rhythm with no significant changes from previous. Lasix IV push 40 mg twice a day daily weights strict I/Os cardiac diet with 1.5L fluid restriction echocardiogram consult to cardiology Qualifiers: Congestive heart failure type: unspecified congestive heart failure type Qualified Code(s): I50.9 - Heart failure, unspecified (2) COPD (chronic obstructive pulmonary disease) Current visit: Yes Status: Chronic Patient with COPD. She is having dyspnea, more consistent with new onset CHF than COPD. However, will give duonebs QID, albuterol nebulizer Q2hr PRN, budesonide/formotorol BID. Qualifiers: COPD type: unspecified COPD Qualified Code(s): J44.9 - Chronic obstructive pulmonary disease, unspecified (3) Hypertension Current visit: Yes Status: Acute Continue home doses of ZIac and Cardura. Nitro paste applied as well. Cardiology consulted for new onset CHF. Qualifiers: Hypertension type: essential hypertension Qualified Code(s): I10 - Essential (primary) hypertension (4) Peripheral vascular disease Current visit: Yes Status: Acute Patient with multiple stents to BLE and carotid endarterectomies bilaterally. Most recently had a left carotid endarterectomy 3 weeks ago. Continue aspirin, plavix and Pletal. Follow up with Dr. Rees as an outpatient. (5) DVT prophylaxis Current visit: No Status: Acute anti-embolic stockings Lovenox 40mg SQ daily Internal Medicine - H&P: HPI Chief complaint: shortness of breath Admitted From: Emergency Dept Plans for Post Hospital Care: Home History of present illness: Ms. Mace is a 62 year old female with hypertension, hyperlipidemia, COPD, peripheral vascular disease, history of CVA, presents emergency department today with complaints of increasing shortness of breath and swelling over the last several days. Patient reports that she first noted swelling about 4 days ago which has been progressively getting worse with swelling around her eyes and her legs. She states that yesterday she noted that she could not walk from one room of her house to another without getting significantly short of breath and needing to stop and rest. This morning she noted some chest tightness and she presented to a previously scheduled doctor's appointment today where they sent her to the emergency room due to these complaints. She reports occasional lightheadedness, mild nausea, poor appetite, constipation, a cough for the last week productive of clear sputum. She denies any palpitations, numbness or tingling, abdominal pain, vomiting, fever. Evaluation in the emergency department included a chest x-ray which showed mild bilateral congestive changes. BNP was elevated to 354. D-dimer was also elevated to 2634 so his CTA was obtained, which showed no pulmonary embolism, and findings consistent with mild CHF with bilateral pleural effusions and interstitial pulmonary edema. EKG showed normal sinus rhythm with no changes from previous. She is hyponatremic with sodium 128. She was given 40 mg of IV push Lasix, topical nitroglycerin, DuoNeb treatment, and Solu-Medrol. On exam, patient alert and oriented, in no acute distress. Heart had regular rate and rhythm. She had periorbital edema, bilateral lower extremity +2 pitting edema. Lungs were diminished with mild crackles in the bases. Past Med Surg Social Fam HX - Past Medical History Medical history: COPD, diabetes, hyperlipidemia, hypertension, migraine, peripheral artery disease Psychiatric history: anxiety, bipolar, depression - Past Surgical History Surgical History: carotid endarterectomy, other, vascular surgery (bilateral carotid endarterectomies, multiple stents to BLE), LE stent (s), LE vascular intervention - Social History Smoking Status: Former smoker (45 Pack year history) Smokeless Tobacco Status: No Alcohol use: none Drug use: none - Family History Mother Living Status: Age at : 76 Hx Family Cardiac Disorders: Yes (CHF) Father Living Status: Hx Family Cardiac Disorders: Yes (CHF) Internal Medicine - H&P: Meds Albuterol Sulfate [Ventolin Hfa] 2 puff IH Q4H PRN 01/26/16 [History] Aspirin [Adult Low Dose Aspirin EC] 81 mg PO HS 01/26/16 [History] Cyclobenzaprine [Flexeril] 10 mg PO QPM 01/26/16 [History] Doxazosin Mesylate [Cardura] 8 mg PO BID 01/26/16 [History] SUMAtriptan succinate [Imitrex] 50 mg PO ONCE PRN MDD 100 03/04/16 [History] Simvastatin [Zocor] 40 mg PO HS 01/26/16 [History] clonazePAM [Klonopin] 1 mg PO TID PRN 01/26/16 [History] lamoTRIgine [Lamictal] 100 mg PO DAILY 01/26/16 [History] Clopidogrel [Plavix] 75 mg PO DAILY #30 tablet 02/02/16 [Rx] Bisoprolol/HCTZ 10/6.25 [Ziac 10/6.25] 1 tab PO BID 04/25/17 [History] Budesonide/Formoterol 80/4.5 [Symbicort 80/4.5] 2 puff IH BIDR 04/25/17 [ History] Cilostazol [Pletal] 100 mg PO BID 04/25/17 [History] Doxepin [Sinequan] 50 mg PO HS 04/25/17 [History] Ibuprofen [Motrin] 800 mg PO Q8HR PRN 04/25/17 [History] RisperiDONE [Risperidone Odt] 1 mg PO DAILY PRN 04/25/17 [History] Citalopram Hydrobromide [Celexa] 40 mg PO DAILY 05/15/17 [History] HYDROcodone/Acet 7.5/325 mg [[place] 7.5-325 mg] 1 tab PO Q6H PRN 05/15/17 [ History] Allergies Penicillins Allergy (Verified 05/15/17 12:40) Hives All Systems PM: A 10-system review of systems was performed and is negative for pertinent findings except as documented above in the HPI. - Constitutional Constitutional: no chills, no fever(s), no night sweats - EENT Eyes: no change in vision, no discharge, no pain, no photophobia Ears: no ear discharge, no ear pain, no tinnitus Nose, mouth and throat: no dysphagia, no nasal discharge, no neck pain, no sore throat - Cardiovascular Cardiovascular ROS IM: chest pain ("tightness"), dyspnea, dyspnea on exertion, edema, lightheadedness, no diaphoresis, no palpitations, no syncope - Respiratory Respiratory: cough, dyspnea, dyspnea on exertion, no wheezing, no excessive phlegm production - Gastrointestinal Gastrointestinal: nausea, no abdominal pain, no diarrhea, no hematemesis, no hematochezia, no melena, no vomiting - Genitourinary Genitourinary: no change in urinary stream, no dysuria, no flank pain, no hematuria - Musculoskeletal Musculoskeletal ROS IM: no numbness, no tingling - Integumentary Integumentary IM: no rash, no unusual bruising - Neurological Neurological ROS: no confusion, no convulsions, no focal weakness, no numbness, no tingling, no tremor(s) - Hematologic/Lymphatic Hematologic/Lymphatic: no easy bruising - Constitutional Vitals: Temp Pulse Resp BP Pulse Ox 97.4 F L 72 20 159/72 92 06/04/17 12:44 06/04/17 12:44 06/04/17 12:44 06/04/17 12:44 06/04/17 12:44 General appearance: Present: A&O X 3, pleasant, no acute distress - Head Head exam: Present: atraumatic, normocephalic - Eye Eye exam: Present: periorbital swelling, PERRL, conjuntiva pink, sclera anicteric Pupils: Present: PERRL - Neck Neck exam general surgery: Present: supple, trachea midline. Absent: lymphadenopathy - Respiratory Respiratory exam: Present: decreased breath sounds, rales (bilateral bases). Absent: accessory muscle use, rhonchi, wheezes - Cardiovascular Cardiovascular exam: Present: RRR, +S1, +S2. Absent: diastolic murmur, gallop, rubs, systolic murmur - GI/Abdominal GI/Abdominal exam: Present: normal bowel sounds, soft, no peritoneal signs. Absent: distended, tenderness - Extremities Exam Extremities exam: Present: pedal edema (BLE +2 edema), warm, radial pulses palpable and symetrical. Absent: calf tenderness, cyanotic - Neurological Exam Neurological exam: Present: CN II-XII intact, oriented X3, no focal deficits. Absent: facial droop, speech deficit - Skin Skin exam: Present: dry, intact Internal Med - H&P Results - Labs CBC & Chem 7: 06/04/17 09:27 06/04/17 10:19 Labs: All Lab Results (24 Hours) 06/04/17 06/04/17 06/04/17 Range/Units 09:27 09:27 09:27 WBC 5.8 (4.3-11.1) K/mcL RBC 3.73 L (3.82-4.97) M/mcL Hgb 11.7 (11.5-15.4) g/dL Hct 35.7 (35.3-44.9) % MCV 95.7 (83.0-100.0) fL MCH 31.4 (28.0-33.3) pg MCHC 32.8 (31.6-35.5) g/dL RDW 13.2 (11.5-14.5) % Plt Count 209 (140-400) K/mcL MPV 9.4 (9.4-12.4) fL Immature Gran % 0.5 (0-4) % Seg Neutrophils % 78.8 % Lymphocytes % 15.0 % Monocytes % 5.7 % Eosinophils % 0.0 % Basophils % 0.0 % Neutrophils # 4.6 (1.6-8.9) K/mcL Lymphocytes # 0.9 (0.6-4.6) K/mcL Monocytes # 0.3 (0.0-1.3) K/mcL Eosinophils # 0.0 (0.0-0.6) K/mcL Basophils # 0.0 (0.0-0.2) K/mcL PT 12.2 H (9.4-12.1) Seconds INR 1.1 APTT 41.0 H (26.0-36.0) Seconds D-Dimer 2634 H (0-500) ng/mLFEU Sodium (136-145) mEq/L Potassium (3.5-4.5) mEq/L Chloride (98-109) mEq/L Carbon Dioxide (19-29) mEq/L BUN (7-20) mg/dL Creatinine (0.57-1.11) mg/dL Est GFR ( Amer) (> 60) Est GFR (Non-Af Amer) (> 60) BUN/Creatinine Ratio (6-26) Glucose (70-99) mg/dL POC Glucose (58-89) Calculated Osmolality (280-300) Calcium (8.6-10.8) mg/dL Troponin I (0-0.03) ng/mL B-Natriuretic Peptide 354 H (0-100) pg/mL Specimen Rejected 06/04/17 06/04/17 06/04/17 Range/Units 09:27 10:19 10:19 WBC (4.3-11.1) K/mcL RBC (3.82-4.97) M/mcL Hgb (11.5-15.4) g/dL Hct (35.3-44.9) % MCV (83.0-100.0) fL MCH (28.0-33.3) pg MCHC (31.6-35.5) g/dL RDW (11.5-14.5) % Plt Count (140-400) K/mcL MPV (9.4-12.4) fL Immature Gran % (0-4) % Seg Neutrophils % % Lymphocytes % % Monocytes % % Eosinophils % % Basophils % % Neutrophils # (1.6-8.9) K/mcL Lymphocytes # (0.6-4.6) K/mcL Monocytes # (0.0-1.3) K/mcL Eosinophils # (0.0-0.6) K/mcL Basophils # (0.0-0.2) K/mcL PT (9.4-12.1) Seconds INR APTT (26.0-36.0) Seconds D-Dimer (0-500) ng/mLFEU Sodium 128 L (136-145) mEq/L Potassium 3.7 (3.5-4.5) mEq/L Chloride 92 L (98-109) mEq/L Carbon Dioxide 30 H (19-29) mEq/L BUN 12 (7-20) mg/dL Creatinine 0.65 (0.57-1.11) mg/dL Est GFR ( Amer) > 60 (> 60) Est GFR (Non-Af Amer) > 60 (> 60) BUN/Creatinine Ratio 18 (6-26) Glucose 109 H (70-99) mg/dL POC Glucose (58-89) Calculated Osmolality 266 L (280-300) Calcium 9.2 (8.6-10.8) mg/dL Troponin I 0.02 (0-0.03) ng/mL B-Natriuretic Peptide (0-100) pg/mL Specimen Rejected Hemolyzed 06/04/17 Range/Units 13:18 WBC (4.3-11.1) K/mcL RBC (3.82-4.97) M/mcL Hgb (11.5-15.4) g/dL Hct (35.3-44.9) % MCV (83.0-100.0) fL MCH (28.0-33.3) pg MCHC (31.6-35.5) g/dL RDW (11.5-14.5) % Plt Count (140-400) K/mcL MPV (9.4-12.4) fL Immature Gran % (0-4) % Seg Neutrophils % % Lymphocytes % % Monocytes % % Eosinophils % % Basophils % % Neutrophils # (1.6-8.9) K/mcL Lymphocytes # (0.6-4.6) K/mcL Monocytes # (0.0-1.3) K/mcL Eosinophils # (0.0-0.6) K/mcL Basophils # (0.0-0.2) K/mcL PT (9.4-12.1) Seconds INR APTT (26.0-36.0) Seconds D-Dimer (0-500) ng/mLFEU Sodium (136-145) mEq/L Potassium (3.5-4.5) mEq/L Chloride (98-109) mEq/L Carbon Dioxide (19-29) mEq/L BUN (7-20) mg/dL Creatinine (0.57-1.11) mg/dL Est GFR ( Amer) (> 60) Est GFR (Non-Af Amer) (> 60) BUN/Creatinine Ratio (6-26) Glucose (70-99) mg/dL POC Glucose 143 H (58-89) Calculated Osmolality (280-300) Calcium (8.6-10.8) mg/dL Troponin I (0-0.03) ng/mL B-Natriuretic Peptide (0-100) pg/mL Specimen Rejected - Diagnostic Studies Chest x-ray Additional comments: Chest X-Ray 06/04/17 09:17 IMPRESSION: Mild vascular congestive changes with suspected trace bilateral pleural effusions. Underaeration of the lung bases. Consider PA and lateral chest with better inspiratory effort for further evaluation. D/ / 06/04/2017 09:51:32 Hans Javed MD / Celsa Sykes Interpreting Provider: Hans Javed MD CT scan - chest Additional comments: Chest CTA 06/04/17 10:36 IMPRESSION: 1. No CT evidence of a pulmonary embolism. 2. Atherosclerotic disease of the thoracic aorta, without evidence of aneurysm or dissection. 3. Findings are consistent with mild CHF, including small bilateral pleural effusions and interstitial pulmonary edema. 4. Mild bibasilar airspace opacities are favored to represent atelectasis over pneumonia. 5. Mild mediastinal lymphadenopathy is likely benign and reactive in etiology given the patient's underlying CHF. However, consider short-term chest CT follow-up in 3-6 months to ensure stability or resolution of this lymphadenopathy. D/ / 06/04/2017 12:31:01 Joel Saeed MD / aminata Interpreting Provider: Joel Saeed MD
--- NOTE | 2017-06-04 13:43 | Cardiology Consult Note ---
Date of Encounter: 06/04/17 Time of Encounter: 13:15 Assessment and Plan (1) Acute congestive heart failure Current Visit: Yes Status: Acute Per cardiology: -Acute CHF, suspected diastolic. -Echo pending. -NYHA class II. -Echo 01/2016 with LVEF 60-65%, no significant valvular dysfunction. -3+ bilateral lower extremity pitting edema. -PLeural effusion and vascular congestion noted per CT chest. -Requiring O2 at 2LPM, not normally on O2 at home. -On Lasix IV BID per primary service. -ON fluid restrictions, daily weights, and strict i/o0s per primary service. -On beta ottoniel. -Weight today 196.7 pounds. Of note, weight at PCP 05/20/17 210 pounds. -Agree with intervention per primary team. -Further recommendations pending echocardiogram. Qualifiers: Congestive heart failure type: unspecified congestive heart failure type Qualified Code(s): I50.9 - Heart failure, unspecified Discussion w patient/family: The assessment and plan as outlined above was discussed with the patient who expressed understanding and agreement. All questions were answered. Thank you for involving us in the care of your patient. Please call with any questions. Discussed and reviewed with . History of Present Illness Consult date: 06/04/17 Requesting physician: Nanci Casper Consult reason: new CHF Chief complaint: shortness of breath History of present illness: Ms. Mace is a 62 year old female with a relevant past medical history of PVD, HTN, hyperlipidemia, DM, COPD, multiple CVAs, Left CEA 05/15/17, and peripheral stenting. Patient had CEA 05/15/17 and states she was discharged with significant lower extremity edema. Patient states edema had been progressively getting worse. Patient states last night she became short of breath and could hardly walk from living room to bathroom. Patient denies chest pain. Patient states other than edema and shortness of breath, she had been doing well since surgery. Past Med Surg Social Fam HX - Past Medical History Attestation: Yes The following information was validated with the patient. Source: patient, old records reviewed Medical history: COPD, diabetes, hyperlipidemia, hypertension, migraine, peripheral artery disease Psychiatric history: anxiety, bipolar, depression - Past Surgical History Surgical History: carotid endarterectomy, other, vascular surgery (bilateral carotid endarterectomies, multiple stents to BLE), LE stent (s), LE vascular intervention - Social History Smoking Status: Former smoker (45 Pack year history) Smokeless Tobacco Status: No Alcohol use: none Drug use: none - Family History Mother Living Status: Age at : 76 Hx Family Cardiac Disorders: Yes (CHF) Father Living Status: Hx Family Cardiac Disorders: Yes (CHF) Medications and Allergies Albuterol Sulfate [Ventolin Hfa] 2 puff IH Q4H PRN 01/26/16 [History] Aspirin [Adult Low Dose Aspirin EC] 81 mg PO HS 01/26/16 [History] Cyclobenzaprine [Flexeril] 10 mg PO QPM 01/26/16 [History] Doxazosin Mesylate [Cardura] 8 mg PO BID 01/26/16 [History] SUMAtriptan succinate [Imitrex] 50 mg PO ONCE PRN MDD 100 01/26/16 [History] Simvastatin [Zocor] 40 mg PO HS 01/26/16 [History] clonazePAM [Klonopin] 1 mg PO TID PRN 01/26/16 [History] lamoTRIgine [Lamictal] 100 mg PO DAILY 01/26/16 [History] Clopidogrel [Plavix] 75 mg PO DAILY #30 tablet 02/02/16 [Rx] Bisoprolol/HCTZ 10/6.25 [Ziac 10/6.25] 1 tab PO BID 04/25/17 [History] Budesonide/Formoterol 80/4.5 [Symbicort 80/4.5] 2 puff IH BIDR 04/25/17 [ History] Cilostazol [Pletal] 100 mg PO BID 04/25/17 [History] Doxepin [Sinequan] 50 mg PO HS 04/25/17 [History] Ibuprofen [Motrin] 800 mg PO Q8HR PRN 04/25/17 [History] RisperiDONE [Risperidone Odt] 1 mg PO DAILY PRN 04/25/17 [History] Citalopram Hydrobromide [Celexa] 40 mg PO DAILY 05/15/17 [History] HYDROcodone/Acet 7.5/325 mg [[place] 7.5-325 mg] 1 tab PO Q6H PRN 05/15/17 [ History] Allergies Penicillins Allergy (Verified 05/15/17 12:40) Hives All Systems Review: A 10-system review of systems was performed and is negative for pertinent findings except as documented above in the HPI. - Cardiovascular Cardiovascular: as per HPI, dyspnea on exertion, leg edema Physical Examination Vital Signs, Last 4 Hours Temp Pulse Resp BP Pulse Ox 06/04/17 12:44 97.4 F L 72 20 159/72 92 06/04/17 12:06 18 166/74 General: Conversant, No Apparent Distress HEENT: Atraumatic, Normocephaly, Mucus Membranes Moist Neck: No JVD, Normal carotid pulses Cardiac: Reg Rate and Rhythm, Normal S1 and S2, No Murmur Lungs: Other (Bilateral lower lobes with coarse breath sounds. ) Neuro: Alert and responsive, No focal deficits noted Abdomen: Soft, Non-Tender Skin: No rashes noted on visualized skin Musculoskeletal: No Chest Wall Tenderness Extremities: No Clubbing, No Cyanosis, Normal Pulses, Other (3+ bilateral lower extremity pitting edema. ) Results 06/04/17 09:27 06/04/17 10:19 Impressions Chest X-Ray 06/04/17 09:17 IMPRESSION: Mild vascular congestive changes with suspected trace bilateral pleural effusions. Underaeration of the lung bases. Consider PA and lateral chest with better inspiratory effort for further evaluation. D/ / 06/04/2017 09:51:32 Hans Javed MD / Celsa Sykes Interpreting Provider: Hans Javed MD Chest CTA 06/04/17 10:36 IMPRESSION: 1. No CT evidence of a pulmonary embolism. 2. Atherosclerotic disease of the thoracic aorta, without evidence of aneurysm or dissection. 3. Findings are consistent with mild CHF, including small bilateral pleural effusions and interstitial pulmonary edema. 4. Mild bibasilar airspace opacities are favored to represent atelectasis over pneumonia. 5. Mild mediastinal lymphadenopathy is likely benign and reactive in etiology given the patient's underlying CHF. However, consider short-term chest CT follow-up in 3-6 months to ensure stability or resolution of this lymphadenopathy. D/ / 06/04/2017 12:31:01 Joel Saeed MD / aminata Interpreting Provider: Joel Saeed MD Active Medications Acetaminophen (Tylenol) 650 mg PO Q6HR PRN PRN Reason: Mild Pain (1-3) Stop: 12/04/17 13:00 Hydrocodone Bitart/Acetaminophen ([place] 7.5-325 Mg) 1 tab PO Q6H PRN PRN Reason: Moderate Pain Stop: 12/04/17 13:06 Albuterol Sulfate (Proventil Neb) 2.5 mg IH Q2H PRN PRN Reason: Shortness Of Breath/Wheezing Stop: 12/04/17 13:09 Albuterol/Ipratropium (Duoneb) 3 ml IH QIDR [facility] Stop: 12/04/17 17:01 Aspirin (Aspirin Ec) 81 mg PO HS [facility] Stop: 12/04/17 21:01 Bisoprolol Fumarate/HCTZ (Ziac) 1 each PO BID [facility] Stop: 12/04/17 21:01 Budesonide/Formoterol Fumarate (Symbicort) 2 puff IH BIDR [facility] PRN Reason: Protocol Stop: 12/04/17 22:01 Cilostazol (Pletal) 100 mg PO BID [facility] Stop: 12/04/17 21:01 Citalopram Hydrobromide (Celexa) 40 mg PO DAILY [facility] Stop: 12/05/17 09:01 Clonazepam (Klonopin) 1 mg PO TID PRN PRN Reason: Anxiety Stop: 12/04/17 13:06 Clopidogrel Bisulfate (Plavix) 75 mg PO DAILY [facility] Stop: 12/05/17 09:01 Cyclobenzaprine HCl (Flexeril) 10 mg PO QPM [facility] Stop: 12/04/17 18:01 Docusate Sodium (Colace) 100 mg PO BID PRN PRN Reason: Constipation Stop: 12/04/17 13:00 Doxazosin Mesylate (Cardura) 8 mg PO BID [facility] Stop: 12/04/17 21:01 Doxepin HCl (Sinequan) 50 mg PO HS [facility] Stop: 12/04/17 21:01 Enoxaparin Sodium (Lovenox) 40 mg SQ 0600 [facility] PRN Reason: Protocol Stop: 12/05/17 06:01 Furosemide (Lasix) 40 mg IVP BIDDIURETIC [facility] Stop: 12/04/17 17:01 Lamotrigine (Lamictal) 100 mg PO DAILY [facility] Stop: 12/05/17 09:01 Naloxone HCl (Narcan) 0.4 mg IVP Q2MIN PRN PRN Reason: Opioid Reversal Stop: 12/04/17 13:00 Ondansetron HCl (Zofran Odt) 4 mg SL Q8HR PRN PRN Reason: Nausea And Vomiting Stop: 12/04/17 13:00 Risperidone (Risperdal M-Tab) 1 mg PO DAILY PRN PRN Reason: Sleep Stop: 12/04/17 13:06 Simvastatin (Zocor) 40 mg PO HS [facility] PRN Reason: Protocol Stop: 12/04/17 21:01 Laboratory Tests 06/04/17 06/04/17 06/04/17 09:27 09:27 10:19 Hgb 11.7 Potassium 3.7 Creatinine 0.65 Troponin I B-Natriuretic Peptide 354 H 06/04/17 10:19 Hgb Potassium Creatinine Troponin I 0.02 B-Natriuretic Peptide - Imaging and Cardiology Chest Xray: report reviewed Echo: pending, report reviewed Other Results: CTA chest report reviewed - EKG Interpretation EKG results cardiology: personally reviewed (ECG with SR, HR 74.), other ( Telemetry reviewed with average HR 74, sinus rhythm. No significant events noted.) Consult Discharge Plan - Plan Referrals: Natalio Martinez, YOU[employer] WORKER [Primary Care Provider] -
[2017-06-04] MEDS: *HR* HYDROcodone/Acet 7.5/325 mg TABLET PO PRN ×2 (14:59→22:15)
[2017-06-04] MEDS: Ipratropium/Albuterol Neb 3 ML IH SCH ×2 (15:17→20:40)
[2017-06-04] MEDS ORDERED: Dextrose Gel 15 GM PO PRN ×2 (15:54)
[2017-06-04] MEDS ORDERED: D5% in Water 1,000 ML IVC PRN (15:54)
[2017-06-04] MEDS ORDERED: *HR* Dextrose 50 % in Water (Syg) 50 ML SYRINGE IVP PRN (15:54)
--- NOTE | 2017-06-04 16:47 | Event Note ---
Date of Encounter: 06/04/17 Time of Encounter: 15:40 Patient evaluated with BELLMAN CAPTAIN. agree essentially with the detailed history, assessment and plan per BELLMAN CAPTAIN's H&P- 62-year-old female with history of hypertension, diabetes, peripheral vascular disease, COPD, presents with 3 day history of sudden and new onset of shortness of breath and leg swelling. She reports exertional dyspnea even with minimal exertion. seen and examined at bedside. Awake, alert and oriented 3. Chest-S1, S2 heard. Lungs with bibasal crackles and scattered rhonchi posteriorly. Abdomen-formed, obese, nontender Extremities-full range of motion, 1+ pitting pedal edema bilateral ankles and lower legs Labs reviewed-serum sodium 128, BNP 354, significantly elevated d-dimer EKG reviewed, shows normal sinus rhythm CT angiogram of chest shows no evidence of pulmonary embolism but shows bilateral interstitial pulmonary edema Likely acute exacerbation of diastolic CHF-reports improvement with IV Lasix given in the emergency room. Continue diuresis along with fluid restriction, urine output monitoring, telemetry monitoring. Check 2-D echocardiogram. Cardiology consult if needed. Hyponatremia-likely related to hyperkalemia and CHF. Continue to monitor with fluid restriction.
[2017-06-04] MEDS: Nicotine 7 MG PATCH.TD24 TD SCH (17:24)
[2017-06-04] MEDS: clonazePAM 1 MG TABLET PO PRN (17:24)
[2017-06-04] MEDS: Insulin LISPRO 300 UNITS/3 ML VIAL SQ SCH ×2 (17:25→22:22)
[2017-06-04] MEDS: Furosemide 40 MG/4 ML VIAL IVP SCH (17:25)
[2017-06-04] MEDS: Budesonide/Formoterol 80/4.5 MDI IH SCH (20:40)
[2017-06-04] MEDS: Aspirin Enteric Coated 81 MG Tablet PO SCH (22:15)
[2017-06-04] MEDS: Bisoprolol/HCTZ 10/6.25 TABLET PO SCH (22:22)
[2017-06-05 05:59] LABS: Basophils % 0.2 %; Hematocrit 33.6 % (35.3-44.9); Hemoglobin 10.8 g/dL (11.5-15.4); Immature Granulocytes % 0.5 % (0-4); Lymphocytes % 15.2 %; Mean Corpuscular HGB Conc 32.1 g/dL (31.6-35.5); Mean Corpuscular Hemoglobin 31.4 pg (28.0-33.3); Mean Corpuscular Volume 97.7 fL (83.0-100.0); Mean Platelet Volume 9.8 fL (9.4-12.4); Monocytes # 0.7 K/mcL (0.0-1.3); Monocytes % 10.2 %; Neutrophils # 4.9 K/mcL (1.6-8.9); Platelet Count 226 K/mcL (140-400); Red Blood Count 3.44 M/mcL (3.82-4.97); Red Cell Distribution Width 13.7 % (11.5-14.5); Segmented Neutrophils % 73.9 %
[2017-06-05 06:41] LABS: BUN/Creatinine Ratio 22 (6-26); Blood Urea Nitrogen 19 mg/dL (7-20); Calcium 9.3 mg/dL (8.6-10.8); Carbon Dioxide 33 mEq/L (19-29); Chloride 93 mEq/L (98-109); Chol/HDL Ratio 2.5 (0-4.9); Cholesterol 164 mg/dL (< 200); Glucose 126 mg/dL (70-99); HDL Cholesterol 65 mg/dL (40-59); LDL Cholesterol,Calculated 84 mg/dL (0-99); Osmolality,Calculated 282 (280-300); Potassium 3.5 mEq/L (3.5-4.5); Sodium 134 mEq/L (136-145); Triglycerides 75 mg/dL (< 150); eGFR For African Americans > 60 (> 60); eGFR For Non-African Americans > 60 (> 60)
[2017-06-05] MEDS: *HR* Enoxaparin 40 MG/0.4 ML SYRINGE SQ SCH (07:42)
[2017-06-05] MEDS: Ipratropium/Albuterol Neb 3 ML IH SCH ×4 (07:49→22:33)
[2017-06-05] MEDS: Insulin LISPRO 300 UNITS/3 ML VIAL SQ SCH ×4 (07:56→20:41)
[2017-06-05] MEDS: Furosemide 40 MG/4 ML VIAL IVP SCH ×2 (08:48→17:53)
[2017-06-05] MEDS: Nicotine 7 MG PATCH.TD24 TD SCH (08:49)
[2017-06-05] MEDS: Bisoprolol/HCTZ 10/6.25 TABLET PO SCH (08:49)
[2017-06-05] MEDS: lamoTRIgine 100 MG TABLET PO SCH (08:50)
--- NOTE | 2017-06-05 09:37 | Electrocardiograph Report ---
[place] [id number] Test Date: 2017-06-04 Pat Name: Faith Mace Department: 102 Room: 2A45 Gender: F Credit Analysis Manager: Estiven : [id number] Requested By: Jose M Ribeiro Order Number: [id number] Reading MD: Bentley Ng MD Measurements Intervals Belle Rate: 74 P: 56 MS: 175 QRS: 28 QRSD: 86 T: 50 QT: 389 QTc: 416 Interpretive Statements SINUS RHYTHM Poor R wave progression Electronically Signed On 06-05-2017 9:35:28 EDT by Bentley Ng MD
--- NOTE | 2017-06-05 10:21 | Cardiology Progress Note ---
Date of Encounter: 06/05/17 Time of Encounter: 08:30 Assessment and Plan (1) Acute congestive heart failure Current Visit: Yes Status: Acute Per cardiology: -Acute diastolic CHF. -Echo pending. -NYHA class II. -Echo 01/2016 with LVEF 60-65%, no significant valvular dysfunction. -Echo 06/04/17 LVEF 60%, moderate diastolic dysfnction. -2+ bilateral lower extremity pitting edema. -PLeural effusion and vascular congestion noted per CT chest. -Requiring O2 at 4LPM, not normally on O2 at home. -On Lasix IV BID per primary service. -ON fluid restrictions, daily weights, and strict i/o0s per primary service. -On beta ottoniel. -CHF educated given to patient including daily weights, fluid restriction, and low sodium diet. Patient states understanding. -Recommend continuing IV diuersis until euvolemic. Recommend starting maintenance po lasic once euvolemic. -Cardiology will sign off and will follow up in outpatient setting. Follow up set. Qualifiers: Congestive heart failure type: diastolic Qualified Code(s): I50.31 - Acute diastolic (congestive) heart failure (2) Regional wall motion abnormality of heart Current Visit: Yes Status: Acute Per cardiology: -06/04/17 Echo with LVEF 60%, moderate diastolic dysfunction, mild-moderately dilated left atrium, no significant valvular dysfunction, calcified atherosclerotic plaque noted in aortic root, apical septal and mid anterior septal monae hypokinetic, all other monae with normal motion. -New wall motion abnormalities noted in apical septal and mid anterior septal monae. -Patient deneis chest pain. Troponin negative. -ECG with no ischemic changes. -Cardiology will follow in outpatient setting. Stressed importance of close follow up with cardiology to patient. Patient states understanding. -Will plan for LHC in outpatient setting when clincally stable from CHF standoint. (3) Tobacco abuse Current Visit: Yes Status: Acute Per cardiology: -KNown tobacco abuse. -states she quit smoking 3 weeks ago. -I spent 3 minutes reviewing education regarding remaining tobacco free with patient. Discussion w patient/family: The assessment and plan as outlined above was discussed with the patient who expressed understanding and agreement. All questions were answered. Thank you for involving us in the care of your patient. Please call with any questions. Discussed and reviewed with . Subjective Principal diagnosis: CHF Interval history: Patient was admitted for increased shortness of breath. Patient was started on lasix IV. Patient states she feels better today and states swelling ahs imrpoved. However, patient is still requiring O2 and normally does not wear at home. Objective Vital Signs, Last 4 Hours Temp Pulse Resp BP Pulse Ox 06/05/17 09:43 98.1 F 81 12 135/76 93 06/05/17 07:03 98.1 F 81 12 135/76 93 General: Conversant, No Apparent Distress HEENT: Atraumatic, Normocephaly, Mucus Membranes Moist Neck: No JVD, Normal carotid pulses Cardiac: Reg Rate and Rhythm, Normal S1 and S2, No Murmur Lungs: Other (Lung sounds with expiratory wheezes in bilateral lower lobes. ) Neuro: Alert and responsive, No focal deficits noted Abdomen: Soft, Non-Tender Skin: No rashes noted on visualized skin Musculoskeletal: No Chest Wall Tenderness Extremities: No Clubbing, No Cyanosis, Normal Pulses, Other (2+ bilateral lower extremity pitting edema. ) Results 06/05/17 04:09 06/05/17 04:09 Lab Results Impressions Chest X-Ray 06/04/17 09:17 IMPRESSION: Mild vascular congestive changes with suspected trace bilateral pleural effusions. Underaeration of the lung bases. Consider PA and lateral chest with better inspiratory effort for further evaluation. D/ / 06/04/2017 09:51:32 Hans Javed MD / Celsa Sykes Interpreting Provider: Hans Javed MD Chest CTA 06/04/17 10:36 IMPRESSION: 1. No CT evidence of a pulmonary embolism. 2. Atherosclerotic disease of the thoracic aorta, without evidence of aneurysm or dissection. 3. Findings are consistent with mild CHF, including small bilateral pleural effusions and interstitial pulmonary edema. 4. Mild bibasilar airspace opacities are favored to represent atelectasis over pneumonia. 5. Mild mediastinal lymphadenopathy is likely benign and reactive in etiology given the patient's underlying CHF. However, consider short-term chest CT follow-up in 3-6 months to ensure stability or resolution of this lymphadenopathy. D/ / 06/04/2017 12:31:01 Joel Saeed MD / aminata Interpreting Provider: Joel Saeed MD Active Medications Acetaminophen (Tylenol) 650 mg PO Q6HR PRN PRN Reason: Mild Pain (1-3) Stop: 12/04/17 13:00 Hydrocodone Bitart/Acetaminophen ([place] 7.5-325 Mg) 1 tab PO Q6H PRN PRN Reason: Moderate Pain Stop: 12/04/17 13:06 Last Admin: 06/04/17 22:15 Dose: 1 tab Albuterol Sulfate (Proventil Neb) 2.5 mg IH Q2H PRN PRN Reason: Shortness Of Breath/Wheezing Stop: 12/04/17 13:09 Albuterol/Ipratropium (Duoneb) 3 ml IH QIDR [facility] Stop: 12/04/17 17:01 Last Admin: 06/05/17 07:49 Dose: Not Given Aspirin (Aspirin Ec) 81 mg PO HS [facility] Stop: 12/04/17 21:01 Last Admin: 06/04/17 22:15 Dose: 81 mg Bisoprolol Fumarate/HCTZ (Ziac) 1 each PO BID [facility] Stop: 12/04/17 21:01 Last Admin: 06/05/17 08:49 Dose: 1 each Budesonide/Formoterol Fumarate (Symbicort) 2 puff IH BIDR [facility] PRN Reason: Protocol Stop: 12/04/17 22:01 Last Admin: 06/04/17 20:40 Dose: 2 puff Cilostazol (Pletal) 100 mg PO BID [facility] Stop: 12/04/17 21:01 Last Admin: 06/05/17 08:50 Dose: 100 mg Citalopram Hydrobromide (Celexa) 40 mg PO DAILY [facility] Stop: 12/05/17 09:01 Last Admin: 06/05/17 08:50 Dose: 40 mg Clonazepam (Klonopin) 1 mg PO TID PRN PRN Reason: Anxiety Stop: 12/04/17 13:06 Last Admin: 06/04/17 17:24 Dose: 1 mg Clopidogrel Bisulfate (Plavix) 75 mg PO DAILY [facility] Stop: 12/05/17 09:01 Last Admin: 06/05/17 08:50 Dose: 75 mg Cyclobenzaprine HCl (Flexeril) 10 mg PO QPM [facility] Stop: 12/04/17 18:01 Last Admin: 06/04/17 17:25 Dose: 10 mg Dextrose/Water (Dextrose 50% (Syg)) 25 ml IVP AD PRN PRN Reason: Hypoglycemia Stop: 12/04/17 15:55 Docusate Sodium (Colace) 100 mg PO BID PRN PRN Reason: Constipation Stop: 12/04/17 13:00 Doxazosin Mesylate (Cardura) 8 mg PO BID [facility] Stop: 12/04/17 21:01 Last Admin: 06/05/17 09:02 Dose: 8 mg Doxepin HCl (Sinequan) 50 mg PO HS [facility] Stop: 12/04/17 21:01 Last Admin: 06/04/17 22:15 Dose: 50 mg Enoxaparin Sodium (Lovenox) 40 mg SQ 0600 [facility] PRN Reason: Protocol Stop: 12/05/17 06:01 Last Admin: 06/05/17 07:42 Dose: 40 mg Furosemide (Lasix) 40 mg IVP BIDDIURETIC [facility] Stop: 12/04/17 17:01 Last Admin: 06/05/17 08:48 Dose: 40 mg Glucagon (Glucagen) 1 mg IM ONCE PRN PRN Reason: Hypoglycemia Stop: 12/04/17 15:55 Glucose (Gluctose) 15 gm PO ONCE PRN PRN Reason: Hypoglycemia Stop: 12/04/17 15:55 Glucose (Gluctose) 30 gm PO ONCE PRN PRN Reason: Hypoglycemia Stop: 12/04/17 15:55 Dextrose (Dextrose 5%) 1,000 mls @ 100 mls/hr IVC .Q10H PRN PRN Reason: HYPOGLYCEMIA Stop: 12/04/17 15:55 Insulin Human Lispro (Humalog) 0 units SQ TIDAC [facility] PRN Reason: Protocol Stop: 12/04/17 16:31 Last Admin: 06/05/17 07:56 Dose: Not Given Insulin Human Lispro (Humalog) 0 units SQ HS [facility] PRN Reason: Protocol Stop: 12/04/17 21:01 Last Admin: 06/04/17 22:22 Dose: Not Given Lamotrigine (Lamictal) 100 mg PO DAILY [facility] Stop: 12/05/17 09:01 Last Admin: 06/05/17 08:50 Dose: 100 mg Naloxone HCl (Narcan) 0.4 mg IVP Q2MIN PRN PRN Reason: Opioid Reversal Stop: 12/04/17 13:00 Nicotine (Nicoderm) 7 mg TD DAILY [facility] PRN Reason: Protocol Stop: 12/04/17 16:01 Last Admin: 06/05/17 08:49 Dose: 7 mg Ondansetron HCl (Zofran Odt) 4 mg SL Q8HR PRN PRN Reason: Nausea And Vomiting Stop: 12/04/17 13:00 Risperidone (Risperdal M-Tab) 1 mg PO DAILY PRN PRN Reason: Sleep Stop: 12/04/17 13:06 Simvastatin (Zocor) 40 mg PO HS [facility] PRN Reason: Protocol Stop: 12/04/17 21:01 Last Admin: 06/04/17 22:15 Dose: 40 mg - Imaging and Cardiology Chest Xray: report reviewed Echo: report reviewed Other Results: Chest CTA report reviewed - EKG Interpretation EKG results cardiology: other (Telemetry reviewed with average HR 77, sinus rhythm. PVCs noted.) - VTE Documentation of Mechanical Device: Graduated compression elastic hosiery Consult Discharge Plan - Plan Referrals: Natalio Martinez, ELECTRICAL LINEWORKER [Primary Care Provider] -
[2017-06-05] MEDS: *HR* HYDROcodone/Acet 7.5/325 mg TABLET PO PRN (10:34)
[2017-06-05] MEDS: Budesonide/Formoterol 80/4.5 MDI IH SCH ×2 (10:59→22:33)
--- NOTE | 2017-06-05 17:04 | Internal Med Progress Note ---
<Joel Modi - Last Filed: 06/05/17 17:01> Date of Encounter: 06/05/17 Time of Encounter: 10:00 - Assessment and plan (1) Acute congestive heart failure Current Visit: Yes Status: Acute Assessment and plan: - BNP and when she Department was 354 -Chest x-ray revealed mild bilateral congestive changes, CT angiogram revealed bilateral pleural effusions consistent with congestive heart failure - Transthoracic echocardiogram done this morning, revealed an ejection fraction of 60% with hypokinesis in the mid anterioseptum and apical septum with moderate left ventricular diastolic dysfunction. - Cardiology following, appreciate recommendations. Plan to evaluate patient with left heart catheterization as an outpatient upon discharge - Patient currently tolerating Lasix 40 mg IV twice a day - Has net loss of 2.4 L of fluid since admission - Clinically improving, we will continue to monitor and diurese as needed. Qualifiers: Congestive heart failure type: diastolic Qualified Code(s): I50.31 - Acute diastolic (congestive) heart failure (2) HLD (hyperlipidemia) Current Visit: No Status: Chronic Assessment and plan: Continue home simvastatin 40 mg at bedtime Qualifiers: Hyperlipidemia type: unspecified Qualified Code(s): E78.5 - Hyperlipidemia , unspecified (3) Bipolar disorder Current Visit: No Status: Chronic Assessment and plan: - She is currently asymptomatic - Continue home medications of Lamictal 100 mg daily, Klonopin 1 mg 3 times a day, risperidone 1 mg daily, citalopram 40 mg daily, doxepin 50 mg at bedtime, cilostazol 100 mg bid Qualifiers: Active/Remission status: remission status unspecified Qualified Code(s): F31.9 - Bipolar disorder, unspecified (4) Hypertension Current Visit: Yes Status: Acute Assessment and plan: - Well-controlled, blood pressures morning was 135/76 - Continue Lasix, bisoprolol/HCTZ Qualifiers: Hypertension type: essential hypertension Qualified Code(s): I10 - Essential (primary) hypertension (5) DVT prophylaxis Current Visit: No Status: Acute Assessment and plan: - Lovenox 40 mg subcutaneous daily - Time Spent With Patient 25 - 35 minutes - Subjective Interval history: Mrs. Mace was seen and examined at bedside swallowing. She states her shortness of breath has improved since admission. She does admit to some dyspnea upon exertion, as well as a productive cough with thin clear sputum. She also states that her bilateral lower extremity edema has improved. She does state that she has been urinating a large amount. She denies any symptoms of chest pain, nausea, vomiting, lightheadedness, dizziness or palpitations, fever, chills. - Constitutional Vitals: Temp Pulse Resp BP Pulse Ox 98.5 F 74 18 80/52 94 06/05/17 15:21 06/05/17 15:21 06/05/17 15:21 06/05/17 15:21 06/05/17 15:21 General appearance: Present: A&O X 3, pleasant, no acute distress Exam: Gen.: Vitals noted. No acute distress. AAOx3. Speaking in full sentences, head elevated HEENT: PERRL/EOMI, oropharynx clear, Normocephalic, atraumatic Neck: Supple. No adenopathy. Cardiac: RRR, no murmur, +S1/S2 Pulmonary: Decreased breath sounds in bilateral lung bases, diffuse expiratory wheezing throughout. Rales in the middle right lobe Abdomen: soft, nontender, BS noted, no guarding Back: Nontender throughout. MSK: ROM intact, no joint swelling noted Extremities: No left leg edema, 1+ pedal edema, nontender calf, no cyanosis or clubbing Neuro: A&Ox3, moves all extremities, no focal deficits Psych: Appropriate mood and behavior Internal Medicine: Result - Labs CBC & Chem 7: 06/05/17 04:09 06/05/17 04:09 Labs: Short CBC 06/05/17 Range/Units 04:09 WBC 6.6 (4.3-11.1) K/mcL Hgb 10.8 L (11.5-15.4) g/dL Hct 33.6 L (35.3-44.9) % Plt Count 226 (140-400) K/mcL Neutrophils # 4.9 (1.6-8.9) K/mcL BMP 06/05/17 04:09 Sodium 134 L Potassium 3.5 Chloride 93 L Carbon Dioxide 33 H BUN 19 Creatinine 0.85 Glucose 126 H Calcium 9.3 - ABG Interpretation ABG results: PT/INR, D-dimer PT 12.2 Seconds (9.4-12.1) H 06/04/17 09:27 D-Dimer 2634 ng/mLFEU (0-500) H 06/04/17 09:27 - VTE Documentation of Mechanical Device: Graduated compression elastic hosiery Consult Discharge Plan - Plan Referrals: Natalio Martinez, KJ [Primary Care Provider] - <Jorge Alberto Swan - Last Filed: 06/05/17 17:31> Date of Encounter: 06/05/17 - Constitutional Vitals: Temp Pulse Resp BP Pulse Ox 98.5 F 74 18 80/52 94 06/05/17 15:21 06/05/17 15:21 06/05/17 16:04 06/05/17 15:21 06/05/17 16:04 Internal Medicine: Result - Labs CBC & Chem 7: 06/05/17 04:09 06/05/17 04:09 Labs: Short CBC 06/05/17 Range/Units 04:09 WBC 6.6 (4.3-11.1) K/mcL Hgb 10.8 L (11.5-15.4) g/dL Hct 33.6 L (35.3-44.9) % Plt Count 226 (140-400) K/mcL Neutrophils # 4.9 (1.6-8.9) K/mcL BMP 06/05/17 04:09 Sodium 134 L Potassium 3.5 Chloride 93 L Carbon Dioxide 33 H BUN 19 Creatinine 0.85 Glucose 126 H Calcium 9.3 - ABG Interpretation ABG results: PT/INR, D-dimer PT 12.2 Seconds (9.4-12.1) H 06/04/17 09:27 D-Dimer 2634 ng/mLFEU (0-500) H 06/04/17 09:27 - Attending Attestation I examined this patient and my medical decision-making was reviewed with the Resident Physician on 06/05/17. I agree with the documented findings, disposition and treatment plan as described except to the extent set forth below. 62 F with known CHFpEF, COPD, PAD, CAD, HTN, Bipolar, admitted and being managed for acute hypoxic respiratory failure secondary to acute on chronic diastolic CHF exacerbation. Patient is seen and examined at bedside, she reports her facial and leg swelling has improved, but she still has dyspnea on minimal exertion. Patient was sleeping on evaluation and desaturated to 88% on 3L of O2, promptly improves upon awakening. She still has facial and pedal edema Labs and Imaging reviewed ECHO with WMA, CXR with pulmonary edema, CBC/Chem unremarkable, hyperglycemia, metabolic alkalosis. Continue diuresis, monitor I/O, fluid restriction, cardiology following, appreciate input, for possible LHC as out-patient, resume home meds, hold other BP meds as BP seems borderline low. Patient will need sleep study as out-patient, and oxygen qualification prior to discharge Rest of details as in residents documentation
[2017-06-05] MEDS: Aspirin Enteric Coated 81 MG Tablet PO SCH (20:20)
[2017-06-05] MEDS: clonazePAM 1 MG TABLET PO PRN (20:20)
[2017-06-06] MEDS: *HR* Enoxaparin 40 MG/0.4 ML SYRINGE SQ SCH (04:50)
[2017-06-06] MEDS: Ipratropium/Albuterol Neb 3 ML IH SCH ×4 (05:25→22:12)
[2017-06-06 06:28] LABS: Hematocrit 34.7 % (35.3-44.9); Hemoglobin 11.2 g/dL (11.5-15.4); Mean Corpuscular HGB Conc 32.3 g/dL (31.6-35.5); Mean Corpuscular Hemoglobin 31.1 pg (28.0-33.3); Mean Corpuscular Volume 96.4 fL (83.0-100.0); Mean Platelet Volume 9.6 fL (9.4-12.4); Platelet Count 213 K/mcL (140-400); Red Cell Distribution Width 13.6 % (11.5-14.5)
[2017-06-06 06:37] LABS: BUN/Creatinine Ratio 30 (6-26); Blood Urea Nitrogen 23 mg/dL (7-20); Carbon Dioxide 34 mEq/L (19-29); Chloride 97 mEq/L (98-109); Glucose 80 mg/dL (70-99); Osmolality,Calculated 289 (280-300); Potassium 3.5 mEq/L (3.5-4.5); Sodium 138 mEq/L (136-145); eGFR For African Americans > 60 (> 60); eGFR For Non-African Americans > 60 (> 60)
[2017-06-06] MEDS: Insulin LISPRO 300 UNITS/3 ML VIAL SQ SCH ×4 (07:50→20:45)
[2017-06-06] MEDS: *HR* HYDROcodone/Acet 7.5/325 mg TABLET PO PRN (09:15)
[2017-06-06] MEDS: Furosemide 40 MG/4 ML VIAL IVP SCH ×2 (09:15→17:15)
[2017-06-06] MEDS: RisperiDONE-M 1 MG TAB.RAPDIS PO SCH (09:15)
[2017-06-06] MEDS: lamoTRIgine 100 MG TABLET PO SCH (09:15)
[2017-06-06] MEDS: Nicotine 7 MG PATCH.TD24 TD SCH ×2 (09:16→15:31)
[2017-06-06] MEDS: clonazePAM 1 MG TABLET PO PRN ×2 (09:22→20:47)
[2017-06-06] MEDS: Budesonide/Formoterol 80/4.5 MDI IH SCH ×2 (09:58→22:12)
[2017-06-06] MEDS ORDERED: Furosemide 20 MG/2 ML VIAL IVP ONE (11:52)
--- NOTE | 2017-06-06 15:30 | Internal Med Progress Note ---
<Joel Modi - Last Filed: 06/06/17 15:28> Date of Encounter: 06/06/17 Time of Encounter: 10:00 - Assessment and plan (1) Acute congestive heart failure Current Visit: Yes Status: Acute Assessment and plan: - BNP and when she Department was 354 -Chest x-ray revealed mild bilateral congestive changes, CT angiogram revealed bilateral pleural effusions consistent with congestive heart failure - Transthoracic echocardiogram revealed an ejection fraction of 60% with hypokinesis in the mid anterioseptum and apical septum with moderate left ventricular diastolic dysfunction. - Cardiology following, appreciate recommendations. Plan to evaluate patient with left heart catheterization as an outpatient upon discharge - Patient did not receive full dose of IV Lasix yesterday or this morning due to hypotension. Patient will be dosed accordingly - Has net loss of 2.9 L of fluid since admission - Clinically improving, we will continue to monitor and diurese as needed. Qualifiers: Congestive heart failure type: diastolic Qualified Code(s): I50.31 - Acute diastolic (congestive) heart failure (2) Hypertension Current Visit: Yes Status: Acute Assessment and plan: - Well-controlled, blood pressures morning was 82/53 - Patient's home medication has been discontinued, patient's Lasix dose has been decreased due to hypotension - We will continue to diuresis as tolerated, and adjust dose of Lasix accordingly Qualifiers: Hypertension type: essential hypertension Qualified Code(s): I10 - Essential (primary) hypertension (3) Bipolar disorder Current Visit: No Status: Chronic Assessment and plan: - She is currently asymptomatic - Continue home medications of Lamictal 100 mg daily, Klonopin 1 mg 3 times a day, risperidone 1 mg daily, citalopram 40 mg daily, doxepin 50 mg at bedtime, cilostazol 100 mg bid Qualifiers: Active/Remission status: remission status unspecified Qualified Code(s): F31.9 - Bipolar disorder, unspecified (4) HLD (hyperlipidemia) Current Visit: No Status: Chronic Assessment and plan: Continue home simvastatin 40 mg at bedtime Qualifiers: Hyperlipidemia type: unspecified Qualified Code(s): E78.5 - Hyperlipidemia , unspecified (5) DVT prophylaxis Current Visit: No Status: Acute Assessment and plan: - Lovenox 40 mg subcutaneous daily (6) COPD (chronic obstructive pulmonary disease) Current Visit: Yes Status: Chronic Assessment and plan: - Patient currently admitted for shortness of breath, likely due to acute exacerbation of congestive heart failure with underlying COPD - Patient currently receiving breathing treatments including albuterol, DuoNeb nebs - Patient participated in oxygen tolerance test with walking, and did not maintain her oxygen saturation levels greater than 88% - Patient will require 3 L of home oxygen upon discharge Qualifiers: COPD type: unspecified COPD Qualified Code(s): J44.9 - Chronic obstructive pulmonary disease, unspecified - Time Spent With Patient 25 - 35 minutes - Subjective Interval history: Mrs. Mace was seen and examined at bedside swallowing. She states her shortness of breath has improved since admission. She does admit to some dyspnea upon exertion, as well as a productive cough with thin clear sputum. She currently does not feel that she would need oxygen upon discharge. She also states that her bilateral lower extremity edema has resolved. She denies any symptoms of chest pain, nausea, vomiting, lightheadedness, dizziness or palpitations, fever, chills. - Constitutional Vitals: Temp Pulse Resp BP Pulse Ox 97.7 F 94 18 90/60 96 06/06/17 12:43 06/06/17 12:43 06/06/17 12:43 06/06/17 12:43 06/06/17 14:09 General appearance: Present: A&O X 3, pleasant, no acute distress Exam: Gen.: Vitals noted. No acute distress. AAOx3. Sitting up in bed comfortably with 4 L of oxygen via nasal cannula HEENT: PERRL/EOMI, oropharynx clear, Normocephalic, atraumatic Neck: Supple. No adenopathy. Cardiac: RRR, no murmur, +S1/S2 Pulmonary: Bilateral rales in lower and middle lobes, expiratory wheezing diffusely. equal chest expansion Abdomen: soft, nontender, BS noted, no guarding Back: Nontender throughout. MSK: ROM intact, no joint swelling noted Extremities: Bilateral lower extremity edema has resolved, nontender calf, no cyanosis or clubbing Neuro: A&Ox3, moves all extremities, no focal deficits Psych: Appropriate mood and behavior Internal Medicine: Result - Labs CBC & Chem 7: 06/06/17 05:59 06/06/17 05:59 Labs: Short CBC 06/06/17 Range/Units 05:59 WBC 4.9 (4.3-11.1) K/mcL Hgb 11.2 L (11.5-15.4) g/dL Hct 34.7 L (35.3-44.9) % Plt Count 213 (140-400) K/mcL BMP 06/06/17 05:59 Sodium 138 Potassium 3.5 Chloride 97 L Carbon Dioxide 34 H BUN 23 H Creatinine 0.77 Glucose 80 Calcium 9.0 - ABG Interpretation ABG results: PT/INR, D-dimer PT 12.2 Seconds (9.4-12.1) H 06/04/17 09:27 D-Dimer 2634 ng/mLFEU (0-500) H 06/04/17 09:27 - VTE Documentation of Mechanical Device: Graduated compression elastic hosiery Consult Discharge Plan - Plan Referrals: Natalio Martinez, AUTOMOTIVE L[employer] MECH[employer]IC [Primary Care Provider] - 06/13/17 12:00 pm (Please follow up as schedule...) <Jorge Alberto Swan T - Last Filed: 06/06/17 17:38> Date of Encounter: 06/06/17 - Constitutional Vitals: Temp Pulse Resp BP Pulse Ox 98.4 F 92 16 93/65 90 06/06/17 16:26 06/06/17 16:26 06/06/17 16:26 06/06/17 16:26 06/06/17 16:26 Internal Medicine: Result - Labs CBC & Chem 7: 06/06/17 05:59 06/06/17 05:59 Labs: Short CBC 06/06/17 Range/Units 05:59 WBC 4.9 (4.3-11.1) K/mcL Hgb 11.2 L (11.5-15.4) g/dL Hct 34.7 L (35.3-44.9) % Plt Count 213 (140-400) K/mcL BMP 06/06/17 05:59 Sodium 138 Potassium 3.5 Chloride 97 L Carbon Dioxide 34 H BUN 23 H Creatinine 0.77 Glucose 80 Calcium 9.0 - ABG Interpretation ABG results: PT/INR, D-dimer PT 12.2 Seconds (9.4-12.1) H 06/04/17 09:27 D-Dimer 2634 ng/mLFEU (0-500) H 06/04/17 09:27 - Attending Attestation I examined this patient and my medical decision-making was reviewed with the Resident Physician on 06/06/17. I agree with the documented findings, disposition and treatment plan as described except to the extent set forth below. 62 F with known CHFpEF, COPD, PAD, CAD, HTN, Bipolar, admitted and being managed for acute hypoxic respiratory failure secondary to acute on chronic diastolic CHF exacerbation. Patient is seen and examined at bedside, she reports her facial and leg swelling has improved, no new complains Labs and Imaging reviewed ECHO with WMA, CXR with pulmonary edema, CBC/Chem unremarkable, hyperglycemia, metabolic alkalosis. Continue diuresis, monitor I/O, fluid restriction, for possible LHC as out- patient, and continue current management. Home O2 qualification today. Additional Lasix as tolerated by BP Patient will need sleep study as out-patient, and oxygen qualification prior to discharge Rest of details as in residents documentation
[2017-06-06] MEDS: Aspirin Enteric Coated 81 MG Tablet PO SCH (20:45)
[2017-06-07] MEDS: Ipratropium/Albuterol Neb 3 ML IH SCH ×4 (03:34→21:52)
[2017-06-07] MEDS: *HR* Enoxaparin 40 MG/0.4 ML SYRINGE SQ SCH (05:21)
[2017-06-07 07:02] LABS: BUN/Creatinine Ratio 25 (6-26); Blood Urea Nitrogen 18 mg/dL (7-20); Calcium 8.8 mg/dL (8.6-10.8); Carbon Dioxide 34 mEq/L (19-29); Chloride 99 mEq/L (98-109); Glucose 116 mg/dL (70-99); Hematocrit 34.1 % (35.3-44.9); Hemoglobin 10.7 g/dL (11.5-15.4); Mean Corpuscular HGB Conc 31.4 g/dL (31.6-35.5); Mean Corpuscular Hemoglobin 30.5 pg (28.0-33.3); Mean Corpuscular Volume 97.2 fL (83.0-100.0); Mean Platelet Volume 9.2 fL (9.4-12.4); Osmolality,Calculated 291 (280-300); Platelet Count 213 K/mcL (140-400); Potassium 3.7 mEq/L (3.5-4.5); Red Blood Count 3.51 M/mcL (3.82-4.97); Red Cell Distribution Width 13.4 % (11.5-14.5); Sodium 139 mEq/L (136-145); eGFR For African Americans > 60 (> 60); eGFR For Non-African Americans > 60 (> 60)
[2017-06-07] MEDS: Nicotine 7 MG PATCH.TD24 TD SCH (08:29)
[2017-06-07] MEDS: lamoTRIgine 100 MG TABLET PO SCH (08:29)
[2017-06-07] MEDS: Furosemide 40 MG/4 ML VIAL IVP SCH (08:30)
[2017-06-07] MEDS: clonazePAM 1 MG TABLET PO PRN ×3 (08:36→20:10)
[2017-06-07] MEDS ORDERED: Furosemide 20 MG/2 ML VIAL IVP ONE (09:19)
[2017-06-07] MEDS: Insulin LISPRO 300 UNITS/3 ML VIAL SQ SCH ×3 (10:02→16:15)
[2017-06-07] MEDS: RisperiDONE-M 1 MG TAB.RAPDIS PO SCH (10:12)
[2017-06-07] MEDS: *HR* HYDROcodone/Acet 7.5/325 mg TABLET PO PRN ×2 (10:14→16:15)
[2017-06-07] MEDS: Sennosides 8.6 MG TABLET PO SCH ×2 (11:16→20:10)
[2017-06-07] MEDS: Budesonide/Formoterol 80/4.5 MDI IH SCH ×2 (11:18→21:53)
--- NOTE | 2017-06-07 11:31 | Internal Med Progress Note ---
<Joel Modi - Last Filed: 06/07/17 11:29> Date of Encounter: 06/07/17 Time of Encounter: 11:29 - Assessment and plan (1) Acute congestive heart failure Current Visit: Yes Status: Acute Assessment and plan: - BNP and when she Department was 354 -Chest x-ray revealed mild bilateral congestive changes, CT angiogram revealed bilateral pleural effusions consistent with congestive heart failure - Transthoracic echocardiogram revealed an ejection fraction of 60% with hypokinesis in the mid anterioseptum and apical septum with moderate left ventricular diastolic dysfunction. - Cardiology following, appreciate recommendations. Plan to evaluate patient with left heart catheterization as an outpatient upon discharge - Patient's Lasix and then given when her blood pressure tolerates this. She will be transitioned to oral Lasix, and her home medication of Cardura will be restarted as well. - Has net loss of 3.5 L of fluid since admission - Clinically improving, we will continue to monitor and diurese as needed. Qualifiers: Congestive heart failure type: diastolic Qualified Code(s): I50.31 - Acute diastolic (congestive) heart failure (2) Hypertension Current Visit: Yes Status: Acute Assessment and plan: - Patient has been running hypotensive due to diuresis - Patient's home medication has restarted this morning, her blood pressure has been stable, patient's Lasix dose has been decreased to 40 mg daily, will continue after discharge Qualifiers: Hypertension type: essential hypertension Qualified Code(s): I10 - Essential (primary) hypertension (3) Bipolar disorder Current Visit: No Status: Chronic Assessment and plan: - She is currently asymptomatic - Continue home medications of Lamictal 100 mg daily, Klonopin 1 mg 3 times a day, risperidone 1 mg daily, citalopram 40 mg daily, doxepin 50 mg at bedtime, cilostazol 100 mg bid Qualifiers: Active/Remission status: remission status unspecified Qualified Code(s): F31.9 - Bipolar disorder, unspecified (4) HLD (hyperlipidemia) Current Visit: No Status: Chronic Assessment and plan: Continue home simvastatin 40 mg at bedtime Qualifiers: Hyperlipidemia type: unspecified Qualified Code(s): E78.5 - Hyperlipidemia , unspecified (5) DVT prophylaxis Current Visit: No Status: Acute Assessment and plan: - Lovenox 40 mg subcutaneous daily (6) COPD (chronic obstructive pulmonary disease) Current Visit: Yes Status: Chronic Assessment and plan: - Patient currently admitted for shortness of breath, likely due to acute exacerbation of congestive heart failure with underlying COPD - Patient currently receiving breathing treatments including albuterol, DuoNeb nebs - Diffuse wheezing on clinical exam - Patient participated in oxygen tolerance test with walking, and did not maintain her oxygen saturation levels greater than 88% - Patient will require 3 L of home oxygen upon discharge, prescription written and provided to social media community manager Qualifiers: COPD type: unspecified COPD Qualified Code(s): J44.9 - Chronic obstructive pulmonary disease, unspecified - Time Spent With Patient 25 - 35 minutes - Subjective Interval history: Mrs. Mace was seen and examined at bedside swallowing. She states her shortness of breath has improved since admission. She states her lower extremity edema has resolved completely. He feels that she is ready to go home however she is anxious about setting up all of her outpatient medications, treatments, nebulizer as her pharmacy closes at 1500 hrs. today. She states that she will be more comfortable going home tomorrow. She also is complaining that she has not had a bowel movement since admission. - Constitutional Vitals: Temp Pulse Resp BP Pulse Ox 98.0 F 100 18 124/70 94 06/07/17 10:36 06/07/17 10:36 06/07/17 10:36 06/07/17 10:36 06/07/17 10:36 General appearance: Present: A&O X 3, pleasant, no acute distress Exam: Gen.: Vitals noted. No acute distress. AAOx3. Mildly anxious appearing HEENT: PERRL/EOMI, oropharynx clear, Normocephalic, atraumatic Neck: Supple. No adenopathy. Cardiac: RRR, no murmur, +S1/S2 Pulmonary: Diffuse wheezes in lower lobes. rales or rhonchi, equal chest expansion Abdomen: soft, nontender, BS noted, no guarding Back: Nontender throughout. MSK: ROM intact, no joint swelling noted Extremities: no BLE edema, nontender calf, no cyanosis or clubbing Neuro: A&Ox3, moves all extremities, no focal deficits Psych: Appropriate mood and behavior Internal Medicine: Result - Labs CBC & Chem 7: 06/07/17 06:41 06/07/17 06:41 Labs: Short CBC 06/07/17 Range/Units 06:41 WBC 4.3 (4.3-11.1) K/mcL Hgb 10.7 L (11.5-15.4) g/dL Hct 34.1 L (35.3-44.9) % Plt Count 213 (140-400) K/mcL [facility] 06/07/17 06:41 Sodium 139 Potassium 3.7 Chloride 99 Carbon Dioxide 34 H BUN 18 Creatinine 0.71 Glucose 116 H Calcium 8.8 - ABG Interpretation ABG results: PT/INR, D-dimer PT 12.2 Seconds (9.4-12.1) H 06/04/17 09:27 D-Dimer 2634 ng/mLFEU (0-500) H 06/04/17 09:27 - VTE Documentation of Mechanical Device: Graduated compression elastic hosiery Consult Discharge Plan - Plan Referrals: Natalio Martinez, MUSIC TEACHER [Primary Care Provider] - 06/13/17 12:00 pm (Please follow up as schedule...) Prescriptions: Albuterol Neb [Proventil Neb] 2.5 mg IH Q2H PRN #30 inh PRN Reason: Shortness Of Breath/Wheezing Furosemide [Lasix] 40 mg PO DAILY #30 tab Ipratropium/Albuterol Neb [Duoneb] 3 ml IH QIDR PRN #120 inh PRN Reason: sob <Jorge Alberto Swan T - Last Filed: 06/07/17 13:45> Date of Encounter: 06/07/17 - Constitutional Vitals: Temp Pulse Resp BP Pulse Ox 98.0 F 100 18 124/70 94 06/07/17 10:36 06/07/17 10:36 06/07/17 10:36 06/07/17 10:36 06/07/17 10:36 Internal Medicine: Result - Labs CBC & Chem 7: 06/07/17 06:41 06/07/17 06:41 Labs: Short CBC 06/07/17 Range/Units 06:41 WBC 4.3 (4.3-11.1) K/mcL Hgb 10.7 L (11.5-15.4) g/dL Hct 34.1 L (35.3-44.9) % Plt Count 213 (140-400) K/mcL [facility] 06/07/17 06:41 Sodium 139 Potassium 3.7 Chloride 99 Carbon Dioxide 34 H BUN 18 Creatinine 0.71 Glucose 116 H Calcium 8.8 - ABG Interpretation ABG results: PT/INR, D-dimer PT 12.2 Seconds (9.4-12.1) H 06/04/17 09:27 D-Dimer 2634 ng/mLFEU (0-500) H 06/04/17 09:27 - Attending Attestation I examined this patient and my medical decision-making was reviewed with the Resident Physician on 06/07/17. I agree with the documented findings, disposition and treatment plan as described except to the extent set forth below. 62 F with known CHFpEF, COPD, PAD, CAD, HTN, Bipolar, admitted and being managed for acute hypoxic respiratory failure secondary to acute on chronic diastolic CHF exacerbation. Patient is seen and examined at bedside, she reports her facial and leg swelling has improved, no new complains Labs and Imaging reviewed: stable renal function and CBC Admitting ECHO with WMA, CXR with pulmonary edema Plan is to Continue diuresis, change lasix to po, resume half home dose of Cadura, monitor I/O (-3.5L this a.m), fluid restriction, for possible LHC as out -patient, and continue current management. She qualifies for home O2 and has a portable tank delivered to her bedside Patient will need sleep study as out-patient Anticipate early d/c a.m if clinically stable Rest of details as in residents documentation
[2017-06-07] MEDS: Aspirin Enteric Coated 81 MG Tablet PO SCH (20:10)
[2017-06-08] MEDS: Insulin LISPRO 300 UNITS/3 ML VIAL SQ SCH ×2 (00:47→08:14)
[2017-06-08] MEDS: Ipratropium/Albuterol Neb 3 ML IH SCH ×2 (04:25→11:53)
[2017-06-08 06:14] LABS: Hematocrit 37.4 % (35.3-44.9); Hemoglobin 11.9 g/dL (11.5-15.4); Mean Corpuscular HGB Conc 31.8 g/dL (31.6-35.5); Mean Corpuscular Hemoglobin 31.4 pg (28.0-33.3); Mean Corpuscular Volume 98.7 fL (83.0-100.0); Mean Platelet Volume 9.5 fL (9.4-12.4); Platelet Count 218 K/mcL (140-400); Red Blood Count 3.79 M/mcL (3.82-4.97); Red Cell Distribution Width 13.5 % (11.5-14.5)
[2017-06-08 06:29] LABS: BUN/Creatinine Ratio 27 (6-26); Blood Urea Nitrogen 20 mg/dL (7-20); Carbon Dioxide 37 mEq/L (19-29); Chloride 98 mEq/L (98-109); Glucose 110 mg/dL (70-99); Osmolality,Calculated 291 (280-300); Potassium 3.4 mEq/L (3.5-4.5); Sodium 139 mEq/L (136-145); eGFR For African Americans > 60 (> 60); eGFR For Non-African Americans > 60 (> 60)
[2017-06-08] MEDS: *HR* Enoxaparin 40 MG/0.4 ML SYRINGE SQ SCH (06:48)
[2017-06-08 07:31] VITALS: BP 123/73
[2017-06-08] MEDS: lamoTRIgine 100 MG TABLET PO SCH (08:16)
[2017-06-08] MEDS: Sennosides 8.6 MG TABLET PO SCH (08:16)
[2017-06-08] MEDS: Nicotine 7 MG PATCH.TD24 TD SCH (08:16)
[2017-06-08] MEDS: RisperiDONE-M 1 MG TAB.RAPDIS PO SCH (08:16)
[2017-06-08] MEDS: clonazePAM 1 MG TABLET PO PRN (08:22)
[2017-06-08] MEDS ORDERED: Furosemide 40 MG TABLET PO SCH (09:00)
--- NOTE | 2017-06-08 09:26 | Discharge Summary ---
<Joel Modi - Last Filed: 06/08/17 11:19> Date of Encounter: 06/08/17 Time of Encounter: 09:21 - Discharge Diagnosis (1) Acute congestive heart failure Priority: Primary Status: Acute Qualifiers: Congestive heart failure type: diastolic Qualified Code(s): I50.31 - Acute diastolic (congestive) heart failure (2) Hypertension Priority: Primary Status: Acute Qualifiers: Hypertension type: essential hypertension Qualified Code(s): I10 - Essential (primary) hypertension (3) Bipolar disorder Priority: Secondary Status: Chronic Qualifiers: Active/Remission status: remission status unspecified Qualified Code(s): F31.9 - Bipolar disorder, unspecified (4) HLD (hyperlipidemia) Priority: Primary Status: Chronic Qualifiers: Hyperlipidemia type: unspecified Qualified Code(s): E78.5 - Hyperlipidemia , unspecified (5) DVT prophylaxis Priority: Primary Status: Acute (6) COPD (chronic obstructive pulmonary disease) Priority: Primary Status: Chronic Qualifiers: COPD type: unspecified COPD Qualified Code(s): J44.9 - Chronic obstructive pulmonary disease, unspecified - Discharge Medications Prescriptions: Albuterol Neb [Proventil Neb] 2.5 mg IH Q2H PRN #30 inh PRN Reason: Shortness Of Breath/Wheezing Furosemide [Lasix] 40 mg PO DAILY #30 tab Ipratropium/Albuterol Neb [Duoneb] 3 ml IH QIDR PRN #120 inh PRN Reason: sob Potassium Chloride [K-Tab ER] 20 meq PO DAILY #30 tab Home Medications: Albuterol Sulfate [Ventolin Hfa] 2 puff IH Q4H PRN 01/26/16 [History] Aspirin [Adult Low Dose Aspirin EC] 81 mg PO HS 01/26/16 [History] Cyclobenzaprine [Flexeril] 10 mg PO QPM 01/26/16 [History] SUMAtriptan succinate [Imitrex] 50 mg PO ONCE PRN MDD 100 01/26/16 [History] Simvastatin [Zocor] 40 mg PO HS 01/26/16 [History] clonazePAM [Klonopin] 1 mg PO TID PRN 01/26/16 [History] lamoTRIgine [Lamictal] 100 mg PO DAILY 01/26/16 [History] Clopidogrel [Plavix] 75 mg PO DAILY #30 tablet 02/02/16 [Rx] Bisoprolol/HCTZ 10/6.25 [Ziac 10/6.25] 1 tab PO BID 04/25/17 [History] Budesonide/Formoterol 80/4.5 [Symbicort 80/4.5] 2 puff IH BIDR 04/25/17 [ History] Cilostazol [Pletal] 100 mg PO BID 04/25/17 [History] Doxepin [Sinequan] 50 mg PO HS 04/25/17 [History] Ibuprofen [Motrin] 800 mg PO Q8HR PRN 04/25/17 [History] RisperiDONE [Risperidone Odt] 1 mg PO DAILY PRN 04/25/17 [History] Citalopram Hydrobromide [Celexa] 40 mg PO DAILY 05/15/17 [History] HYDROcodone/Acet 7.5/325 mg [Victor 7.5-325 mg] 1 tab PO Q6H PRN 05/15/17 [ History] Albuterol Neb [Proventil Neb] 2.5 mg IH Q2H PRN #30 inh 06/07/17 [Rx] Furosemide [Lasix] 40 mg PO DAILY #30 tab 06/07/17 [Rx] Ipratropium/Albuterol Neb [Duoneb] 3 ml IH QIDR PRN #120 inh 06/07/17 [Rx] Doxazosin Mesylate [Cardura] 8 mg PO DAILY #30 tab 06/08/17 [Rx] Potassium Chloride [K-Tab ER] 20 meq PO DAILY #30 tab 06/08/17 [Rx] Allergies/Adverse Reactions: Allergies Penicillins Allergy (Verified 05/15/17 12:40) Hives Date of admission: 06/04/17 12:59 Primary care physician: Natalio Martinez CNP Consults: 06/04/17 13:10 Consult to Cardiology [CONS] Routine Comment: Consulting Provider: [facility] Reason for Consult: 62F with new onset CHF. increased swelling and dyspnea, imaging consistent with CHF and elevated BNP. Call Completed: Yes 06/07/17 11:26 Consult to Physical Therapy [CONS] Routine Comment: Evaluate, develop and implement POC Reason for Consult: Discharge planning. Discharging clinician: Joel Modi Anticipated date of discharge: 07/16/17 - Patient Status Disposition: Home, Self-Care Condition: Good Functional capacity at discharge: independent ambulation Overall status at discharge: patient is back to baseline - Ambulatory Orders Ambulatory Orders: Sleep Study Time Frame: 2 Weeks, Facility: [facility], Location: [facility] - Discharge Instructions Instructions: Chronic Obstructive Pulmonary Disease (DC), Chronic Hypertension (DC) Follow Up With: [facility] [Provider Group] (office will contact you with an appointment date and time. If you do not hear from them by Friday, please call and schedule a follow up appointment) Natalio Martinez CNP [Primary Care Provider] - 06/13/17 12:00 pm (Please follow up as schedule...) Additional Instructions: His follow-up with your primary care physician, instrument and control service person, sleep study to be evaluated for left heart catheterization and obstructive sleep apnea. Please return to emergency department if symptoms worsen. - Diet and Activity Activity: increase activity as tolerated, resume usual activities as tolerated Diet: advance to your usual diet Hospital course: Ms. Mace is a 62 year old female with past medical history of hypertension, hyperlipidemia, COPD, peripheral vascular disease, history of CVA presented to the emergency department with complaints of increasing shortness and lower extremity/ periorbital swelling over the last 4 days. She stated that the shortness of breath was exacerbated with exertion stating that she can not from one room to the next without getting short of breath. He denies using home oxygen, however does use inhalers without relief of symptoms. The morning of admission, patient reports that she saw her primary care doctor and was experiencing some chest tightness, and so her PCP sent her to the emergency room. She denies symptoms of palpitations numbness, tingling, abdominal pain, fevers, chills. X-ray emergency department revealed mild bilateral congestive changes, BNP was 354. D-dimer was elevated at 2634, CTA was obtained and showed no pulmonary embolism however it did show mild CHF congestion and bilateral pleural effusions. She showed normal sinus rhythm. She was hyponatremic with sodium of 128. Vital signs were noted in emergency room and were significant for respiratory rate of 20, blood pressure 159/72, and a oxygen saturation of 89%, which improved to 97% on 3 L reduction. She received 40 mg of IV Lasix push, topical much questioning, DuoNeb treatments and Solu- Medrol. His exam was significant for periorbital edema, bilateral lower extremity 2+ pitting edema and auscultation revealed diminished lung sounds with mild rales in the bases. She was admitted to medicine service with suspected diagnosis of new onset congestive heart failure, COPD exacerbation. During hospital stay, patient's shortness of breath improved with diuretics. Cardiology was consulted and echocardiogram revealed ejection fraction of 60% with hypokinesis in the mid anterior septum and apical septum with moderate left ventricular diastolic dysfunction. Cardiology has recommended follow-up outpatient with possible left heart catheterization. Patient lost a net of 5.3 L of fluid during admission, which has relieved her symptoms of shortness of breath. She does still continue to require supplemental oxygen despite the use of breathing treatments and diuretics. She did desaturate during walking O2 tests, and will be given home oxygen upon discharge. Patient states her facial edema and some lower extremity edema have resolved with diuretic treatment. On day of discharge, patient was medically stable however still requiring supplemental oxygen. Social work arranged home oxygen, nebulizer, outpatient prescriptions of albuterol, DuoNeb's, Lasix, potassium. She was to discharge and instructed to follow-up with cardiology, primary care physician, recommend outpatient sleep study for suspected shock to sleep apnea with desaturation while asleep. Time spent discussing smoking cessation with patient: 3 to 10 minutes - Time Spent with Patient Total time spent providing and/or coordinating discharge services: - Constitutional Vitals: Temp Pulse Resp BP Pulse Ox 97.6 F 90 18 123/73 92 06/08/17 07:19 06/08/17 07:19 06/08/17 07:19 06/08/17 07:19 06/08/17 07:19 General appearance: Present: A&O X 3, pleasant, no acute distress Exam: Gen.: Vitals noted. No acute distress. AAOx3. Anxious appearing HEENT: PERRL/EOMI, oropharynx clear, Normocephalic, atraumatic. Periorbital edema resolved Neck: Supple. No adenopathy. Cardiac: RRR, no murmur, +S1/S2 Pulmonary: Mild wheezes diffusely, much improved since admission. equal chest expansion. Requiring 3 L of oxygen Abdomen: soft, nontender, BS noted, no guarding Back: Nontender throughout. MSK: ROM intact, no joint swelling noted Extremities: Lower extremity edema has resolved, nontender calf, no cyanosis or clubbing Neuro: A&Ox3, moves all extremities, no focal deficits Psych: Appropriate mood and behavior - VTE Documentation of Mechanical Device: Graduated compression elastic hosiery <Nitin Swanrewaju T - Last Filed: 06/08/17 12:34> Date of Encounter: 06/08/17 Date of admission: 06/04/17 12:59 Primary care physician: Natalio Martinez CNP Consults: 06/04/17 13:10 Consult to Cardiology [CONS] Routine Comment: Consulting Provider: [facility] Reason for Consult: 62F with new onset CHF. increased swelling and dyspnea, imaging consistent with CHF and elevated BNP. Call Completed: Yes 06/07/17 11:26 Consult to Physical Therapy [CONS] Routine Comment: Evaluate, develop and implement POC Reason for Consult: Discharge planning. Hospital course: Ms. Mace is a 62 year old female - Time Spent with Patient Total time spent providing and/or coordinating discharge services: - Constitutional Vitals: Temp Pulse Resp BP Pulse Ox 97.6 F 90 18 123/73 92 06/08/17 07:19 06/08/17 07:19 06/08/17 07:19 06/08/17 07:19 06/08/17 07:19 - Attending Attestation I examined this patient and my medical decision-making was reviewed with the Resident Physician on 06/07/17. I agree with the documented findings, disposition and treatment plan as described except to the extent set forth below. 62 F with known CHFpEF, COPD, PAD, CAD, HTN, Bipolar, admitted and being managed for acute hypoxic respiratory failure secondary to acute on chronic diastolic CHF exacerbation. Patient is seen and examined at bedside She has nino significant clinicl improvement with negative fluid balance >5000cc She is clinically stable for exam but seemed to be anxious to got home. Her oxygen and nebulizer have been confirmed will be delivered by [facility] today and her medications have been called to the [facility] Her clinical exam is unremarkable Labs and Imaging reviewed: stable renal function and CBC, mild hypokalemia, replaced. Admitting ECHO with WMA, CXR with pulmonary edema Agree with discharge home on diuretics, potassium, nebs, home medications, oxygen. Needs sleep study as out-patient, ordered Need cardiology eval for elective [facility] Plan of care discussed extensively, verbalized understanding.
[2017-06-08] MEDS: Budesonide/Formoterol 80/4.5 MDI IH SCH (11:53)
== END 2017-06-08 11:53 | disposition home or self-care (01) | DRG 291 ==
LOC: EMEROO 09:13 → 2ANU 09:13
PROVIDERS: ADMIT Internal Medicine; ATTEND Internal Medicine

== ENCOUNTER 2018-12-14 16:41 | Inpatient (IN) ==
[2018-12-14] MEDS ORDERED: Ondansetron ODT 4 MG TAB.RAPDIS SL PRN (20:13)
[2018-12-14] MEDS ORDERED: Ondansetron 4 MG/2 ML VIAL IVP PRN (21:05)
[2018-12-14] MEDS ORDERED: Ipratropium/Albuterol Neb 3 ML IH ONE (21:20)
[2018-12-14] MEDS ORDERED: Dextrose Gel 15 GM/37.5 ML TUBE PO PRN ×2 (21:26)
[2018-12-14] MEDS ORDERED: *HR* Dextrose 50 % in Water (Syg) 50 ML SYRINGE IVP PRN (21:26)
[2018-12-14] MEDS ORDERED: Naloxone 0.4 MG/ML INJ IVP PRN (21:26)
[2018-12-14] MEDS ORDERED: GI Cocktail 40 ML EACH PO ONE (21:27)
[2018-12-14 21:34] LABS: Basophils % 0.2 %; Eosinophils % 0.1 %; Hematocrit 41.8 % (35.3-44.9); Hemoglobin 14.8 g/dL (11.5-15.4); Immature Granulocytes % 0.4 % (0-4); Lymphocytes # 1.2 K/mcL (0.6-4.6); Lymphocytes % 11.8 %; Mean Corpuscular HGB Conc 35.4 g/dL (31.6-35.5); Mean Corpuscular Hemoglobin 31.8 pg (28.0-33.3); Mean Corpuscular Volume 89.9 fL (83.0-100.0); Mean Platelet Volume 9.2 fL (9.4-12.4); Monocytes # 0.8 K/mcL (0.0-1.3); Monocytes % 8.1 %; Platelet Count 200 K/mcL (140-400); Red Blood Count 4.65 M/mcL (3.82-4.97); Red Cell Distribution Width 11.8 % (11.5-14.5); Segmented Neutrophils % 79.4 %
[2018-12-14 21:43] LABS: INR 1.1; Prothrombin Time 12.3 Seconds (9.4-12.1)
[2018-12-14] MEDS: 0.9 % Sodium Chloride 1,000 ML IVC SCH (21:46)
[2018-12-14] MEDS: OXYCODONE Oral CONC 10 MG/0.5 ML ORAL.SYG SL PRN (21:47)
[2018-12-14] MEDS: *HR* Heparin 5,000 UNIT/ML VIAL SQ SCH (21:47)
[2018-12-14 21:55] LABS: BUN/Creatinine Ratio 24 (6-26); Blood Urea Nitrogen 14 mg/dL (8-23); Calcium 8.8 mg/dL (8.6-10.3); Carbon Dioxide 25 mEq/L (23-29); Chloride 94 mEq/L (98-107); Glucose 102 mg/dL (70-105); Osmolality,Calculated 265 (280-300); Potassium 3.3 mEq/L (3.5-5.1); Sodium 127 mEq/L (136-145); eGFR For Non-African Americans > 60 (> 60)
[2018-12-14] MEDS: Ketorolac 30 MG/ML VIAL IVP PRN (21:55)
[2018-12-14 21:59] LABS: Troponin I 0.08 ng/mL (< 0.04)
--- NOTE | 2018-12-14 22:03 | Internal Med History&Physical ---
<Naye Ruth - Last Filed: 12/15/18 01:08> Date of Encounter: 12/15/18 Time of Encounter: 22:01 Internal Medicine - H&P: HPI Chief complaint: Nausea, vomiting, abdominal pain Admitted From: Hospital to Hospital Transfer Plans for Post Hospital Care: Home History of present illness: Ms. Mace is a 63 year old female with past medical history of squamous cell lung cancer, COPD, diabetes who presented as a transfer from [facility] due to finance concerning for cholelithiasis and possible choledocholelithiasis. Upon my examination of the patient she reported that her symptoms began last which was 5 days ago. She had nausea, vomiting, abdominal pain, diarrhea. She stated that the vomiting and diarrhea have resolved. The pain started to subside after a couple days however it recurred again. The abdominal pain has not improved and has been constant. She describes abdominal pain as a stabbing pain with the sensation that "pliers" are being twisted in her stomach. The pain is located in her epigastric region and radiates across her stomach. Nothing improves or exacerbates the pain. There is no association with food. She is associated nausea, headache, chills. She has had decreased oral intake of fluids and food. She is noted some increase in shortness of breath. She reported falling a couple days ago and hitting her chin due to weakness, she did not pass out and lose consciousness. She denied fever, change in vision, chest pain, palpitations, cough, sputum production, hematemesis, hematechezia, melena, dysuria. She still has her gallbladder and appendix. She has not had radiation. Her oncologist is Dr. Clark at the [facility]. She is a current smoker of 10 cigarettes a day. She denied alcohol and drug use. She is a full code. At [facility], initial vitals were temperature 97.5, heart rate 128, BP 78/60, SpO2 95%. WBC 12.7, hemoglobin 17.8, platelets to 96, sodium 122, potassium 3.4, calcium 11.5, troponin 0.09, D dimer 438, lactic acid 1.7. Urinalysis demonstrating protein in ketones. Chest x-ray demonstrating right hilar mass and nodules that is similar to prior chest x-ray. Abdominal CT demonstrating cholelithiasis with gallbladder wall thickening. Head CT unremarkable for intracranial abnormality. EKG demonstrating sinus tachycardia, normal axis, biphasic P-wave, no ST or T wave changes. ED physicians spoke with Dr. sheppard the general surgeon who agreed with transferred to [facility] for further evaluation. The patient was given ertapenem prior to transfer along with 2 L IV fluids, aspirin. Past Med Surg Social Fam HX - Past Medical History Attestation: Yes The following information was validated with the patient. Source: patient Medical history: cancer, COPD, coronary artery disease, diabetes, h yperlipidemia, hypertension, migraine, peripheral artery disease Additional medical history: ulnar neuropathy, LUE, peripheral vascular disease, lumbar facet arthropathy, disorder of scrum, multiple cerebral infarctions, Psychiatric history: anxiety, bipolar, depression, panic disorder - Past Surgical History Surgical History: angioplasty/stent, carotid endarterectomy, other, vascular surgery, LE stent (s), LE vascular intervention Additional surgical history: BILAT CEA, LLE STENTS PLACED, RLE STENTS PLACED. - Social History Smoking Status: Current every day smoker Smokeless Tobacco Status: No Alcohol use: none Drug use: none - Family History Father History Unknown: Yes Family Member Ethnicity: Non- Living Status: Hx Family Cardiac Disorders: Yes (CHF) Mother History Unknown: Yes Family Member Ethnicity: Non- Living Status: Hx Family Cardiac Disorders: Yes (CHF) Hx Family Neurologic Disorders: Yes Internal Medicine - H&P: Meds Budesonide/Formoterol 160/4.5 [Symbicort 160/4.5] 2 puff IH BIDR 12/14/18 [History] Cilostazol [Pletal] 100 mg PO BID 12/14/18 [History] Cyclobenzaprine [Flexeril] 10 mg PO DAILY 12/14/18 [History] HYDROcodone/Acet 7.5/325 mg [[place] 7.5-325 mg] 1 tab PO Q6H PRN 12/14/18 [History] Lipase/Protease/Amylase [Maryann Wilks 12,000 Units Capsule] 2 each PO ACHS 12/14/18 [History] RX: clonazePAM [Clonazepam] 1 mg PO QID 12/14/18 [History] Zolpidem [Ambien] 10 mg PO HS 12/14/18 [History] metFORMIN [Glucophage] 500 mg PO HS 12/14/18 [History] risperiDONE [Risperidone] 1 mg PO HS 12/14/18 [History] Allergy/AdvReac Type Severity Reaction Status Date / Time Penicillins Allergy Hives Verified 12/09/18 10:57 All Systems PM: A 10-system review of systems was performed and is negative for pertinent findings except as documented above in the HPI. - Constitutional Constitutional: anorexia, chills, falls, weakness, no fatigue - EENT Eyes: no blurry vision, no change in vision - Cardiovascular Cardiovascular ROS IM: lightheadedness, no chest pain, no dyspnea on exertion, no palpitations, no syncope - Respiratory Respiratory: dyspnea, no cough, no hemoptysis, no excessive phlegm production, no change in phlegm color, no pain with cough - Gastrointestinal Gastrointestinal: abdominal pain, diarrhea, nausea, vomiting, no hematemesis, no melena - Genitourinary Genitourinary: no dysuria, no urinary frequency - Musculoskeletal Musculoskeletal ROS IM: no back pain, no myalgias - Integumentary Integumentary IM: no erythema, no new lesions, no rash - Neurological Neurological ROS: headache(s), no dizziness, no loss of vision - Hematologic/Lymphatic Hematologic/Lymphatic: no easy bleeding - Constitutional Vitals: Temp Pulse Resp BP Pulse Ox 98.0 F 94 18 142/86 94 12/14/18 19:48 12/14/18 19:48 12/14/18 19:48 12/14/18 19:48 12/14/18 19:48 General appearance: Present: A&O X 3, pleasant, no acute distress Exam: Alert and oriented times 3 - Head Head exam: Present: atraumatic, normal inspection, normocephalic - Eye Eye exam: Present: normal appearance. Absent: scleral icterus - Respiratory Respiratory exam: Present: wheezes (Diffuse bilateral). Absent: accessory muscle use, rales, stridor - Cardiovascular Cardiovascular exam: Present: RRR, +S1, +S2. Absent: gallop - GI/Abdominal GI/Abdominal exam: Present: normal bowel sounds, soft, tenderness (Epigastric and right upper quadrant). Absent: distended, firm, guarding - Extremities Exam Extremities exam: Present: normal inspection. Absent: pedal edema, tenderness - Back Exam Back exam: Present: normal inspection. Absent: rash noted, tenderness - Neurological Exam Neurological exam: Present: alert, oriented X3. Absent: facial droop, speech deficit - Psychiatric Psychiatric exam: Present: normal affect, normal mood - Skin Skin exam: Present: dry, intact Internal Med - H&P Results - Labs CBC & Chem 7: 12/14/18 21:21 12/14/18 21:20 Labs: Short CBC 12/14/18 Range/Units 21:21 WBC 10.0 (4.3-11.1) K/mcL Hgb 14.8 D (11.5-15.4) g/dL Hct 41.8 (35.3-44.9) % Plt Count 200 (140-400) K/mcL Neutrophils # 8.0 (1.6-8.9) K/mcL BMP 12/14/18 21:20 Sodium 127 L Potassium 3.3 L Chloride 94 L Carbon Dioxide 25 BUN 14 Creatinine 0.58 L Glucose 102 Calcium 8.8 Cardiac Enzymes 12/14/18 Range/Units 21:20 Troponin I 0.08 H* (< 0.04) ng/mL - Assessment and plan (1) Cholelithiasis Current Visit: Yes Status: Acute Assessment and plan: Cholelithiasis is demonstrated on abdominal CT with findings concerning for possible cholecystitis. Patient has had nausea, vomiting, abdominal pain since which was 5 days ago. Patient had diarrhea that was resolved. Denies exacerbating or improving factors. Not associated with food. Differential includes cholelithiasis, cholecystitis. Lower on suspicion is choledocolithiasis in setting of normal bilirubin levels. Ischemic colitis is unlikely due to clinical assessments along with normal lactate level, tenderness that is not out of proportion to exam. Abdominal CT demonstrating cholelithiasis with borderline gallbladder wall thickening. Afebrile, WBC WNL lactic acid 1.7, bilirubin WNL Abdominal exam is soft, tender in epigastric and right upper quadrant. Bowel sounds present. No guarding or distention. Plan: -ED physician spoke with Dr. sheppard the general surgeon who agreed with transferred to [facility] for further evaluation. The patient was given ertapenem prior to transfer along with 2 L IV fluids. -Liver ultrasound pending -NPO -Zofran PRN nausea -ketorolac and oxycodone PRN pain Qualifiers: Cholelithiasis location: gallbladder Qualified Code(s): K80.00 - Calculus of gallbladder with acute cholecystitis without obstruction (2) Hypercalcemia Current Visit: No Status: Acute Assessment and plan: Resolved Hypercalcemia, may be due to dehydration but also consider secondary to squamous cell carcinoma of the lung. Calcium 11.5 at admission calcium now 8.8 -will continue to monitor (3) Hyponatremia Current Visit: No Status: Acute Assessment and plan: Hypotonic Hyponatremia, sodium at admission 122 -This is most likely due dehydration and decreased oral intake of food and liquids. -sodium now 127 -osmolarity 265 low -patient is asymptomatic Plan: -patient has received IV fluid resuscitation in sodium has already improved. Will not order urine studies since improvement of sodium level and since she is already received IV fluids. (4) Elevated troponin Current Visit: No Status: Acute Assessment and plan: Elevated troponin troponin 0.09 > 0.08 may be secondary to demand ischemia patient denies chest pain EKG demonstrating sinus tachycardia, normal axis, biphasic P-wave, no ST or T wave changes. Plan: -will continue to trend troponin -patient received aspirin (5) Hypokalemia Current Visit: No Status: Acute Assessment and plan: Hypokalemia, at admission potassium 3.4 repeat potassium 3.3 -will supplement potassium and check magnesium level. Will continue to monitor potassium level (6) Metastatic lung carcinoma Current Visit: No Status: Acute Assessment and plan: Patient has metastatic lung cancer. Squamous cell carcinoma with metastases to lymph nodes. Follows with Dr. Clark in [place] onc[facility]. She is to have a port placed soon. Chest x-ray demonstrating right hilar mass and nodules that is similar to prior chest x-ray. Patient will follow-up up with her oncologist Qualifiers: Laterality: right Qualified Code(s): C78.01 - Secondary malignant neoplasm of right lung (7) Diabetes mellitus type 2 with complications Current Visit: No Status: Chronic Assessment and plan: History of known diabetes taking metformin Glucose stable -low sliding scale insulin -will continue with ACCU checks -NPO Qualifiers: Diabetes mellitus retirement insulin use: without long term care phlebotomist use Qualified Code(s): E11.8 - Type 2 diabetes mellitus with unspecified complications (8) COPD (chronic obstructive pulmonary disease) Current Visit: No Status: Chronic Assessment and plan: History of COPD using Symbicort inhalers. Not in exacerbation. Denies increase cough in sputum production. Does not use oxygen. -Will continue with Symbicort and duonebs Qualifiers: COPD type: unspecified COPD Qualified Code(s): J44.9 - Chronic obstructive pulmonary disease, unspecified (9) Tobacco abuse Current Visit: No Status: Acute Assessment and plan: Current smoker of 10 cigarettes a day. (10) DVT prophylaxis Current Visit: No Status: Acute Assessment and plan: Heparin SQ - Time Spent With Patient Total time spent is greater than 50% in coordination of care (as documented) at patient's floor/unit and/or counseling patient: <Jorden Landers - Last Filed: 12/15/18 01:51> Date of Encounter: 12/15/18 All Systems PM: A 10-system review of systems was performed and is negative for pertinent findings except as documented above in the HPI. - Constitutional Vitals: Temp Pulse Resp BP Pulse Ox 98.0 F 94 18 142/86 96 12/14/18 19:48 12/14/18 19:48 12/14/18 22:20 12/14/18 19:48 12/14/18 22:20 Internal Med - H&P Results - Labs CBC & Chem 7: 12/14/18 21:21 12/14/18 21:20 Labs: Short CBC 12/14/18 Range/Units 21:21 WBC 10.0 (4.3-11.1) K/mcL Hgb 14.8 D (11.5-15.4) g/dL Hct 41.8 (35.3-44.9) % Plt Count 200 (140-400) K/mcL Neutrophils # 8.0 (1.6-8.9) K/mcL BMP 12/14/18 21:20 Sodium 127 L Potassium 3.3 L Chloride 94 L Carbon Dioxide 25 BUN 14 Creatinine 0.58 L Glucose 102 Calcium 8.8 Cardiac Enzymes 12/14/18 Range/Units 21:20 Troponin I 0.08 H* (< 0.04) ng/mL - Time Spent With Patient Total time spent is greater than 50% in coordination of care (as documented) at patient's floor/unit and/or counseling patient: Greater than 35 minutes - Attending Attestation I performed a history and physical exam of the patient on 12/14/18 and discussed management with the resident. I reviewed the resident's note and agree with the documented findings and plan of care. Faith Mace is a 63 year old woman with chronic tobacco use who has COPD, hypertension, hyperlipidemia, bipolar disorder and was recently diagnosed with stage 3-4 metastatic squamous cell carcinoma of the lung yet to begin chemotherapy who comes in on transfer from [facility] for abdominal pain. She reports that on 12/10 she had nausea, vomiting and diarrhea that was profuse as well as abdominal pain but this resolved the next day. On 12/12 she had a little bit of vomiting and diarrhea but since then has not recurred however her abdominal pain has been persistent since that day and has continued to worsen. She states that she has only able t o eat salt crackers over these past few days and has become notably fatigued. At [facility] shows seen to have a leukocyte count of 12.7, hemoglobin 17.8, sodium 122, potassium 3.4, chloride 84, lipase within normal limits, troponin 0.09 (no chest pain reported at any time and EKG showing sinus tachycardia). She was hypotensive with a systolic of 76 reported and heart rate of 120 saturating 88% on room air. Imaging studies showed cholelithiasis with borderline gallbladder wall thickening so surgery was consulted. She was given fluid resuscitation and sent over here. Here she reports feeling mildly better continues to feel fatigued and having abdominal pain. Physical exam is remarkable for an obese white woman lying in bed in notable, dry skin and mucous membranes, epigastric & RUQ tenderness elicited with no peritoneal reaction. Chest with scattered wheezes that are audible. Impression is that she is significantly dehydrated as evidenced by her hemoconcentration, hyponatremia and hypochloremia which concurs with her history of poor intake and GI losses through vomiting and diarrhea. Her LFTs are within normal limits and she has been afebrile therefore it is unclear if she a ctually has acute cholecystitis. She received 1 dose of ertapenem at 2:30 PM this afternoon which will last for at least 24 hours in her system therefore no need for antimicrobials at this time due to uncertainty of this diagnosis; will keep nothing by mouth past midnight to obtain a gallbladder ultrasound in the morning for reassessment. Will continue fluid resuscitation for JULIAN, hypochloremia and hyponatremia which appear to be hypovolemic in origin as well as provide pain control. Antiemetics as needed if nausea/vomiting is to recur. Would consider stool studies if diarrhea recurs as well. Nebulizer therapy ordered as she is currently ymptomatic from her COPD. Troponin elevation likely in the setting of hypotensive state and not actual active ischemic disease; will trend. DVT prophylaxis with subcutaneous heparin. Smoking sensation counseling given. She will continue to follow with oncology for her metastatic lung cancer; awaiting placement of MediPort and brain MRI. 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
[2018-12-14] MEDS: Budesonide/Formoterol 160/4.5 1 PUFF INH IH SCH (22:13)
[2018-12-14] MEDS ORDERED: Potassium Chloride Elixir 20 MEQ/15 ML UDC PO ONE (22:39)
[2018-12-15] MEDS: Insulin LISPRO 300 UNITS/3 ML VIAL SQ SCH ×5 (00:03→23:58)
[2018-12-15] MEDS ORDERED: 0.9 % Sodium Chloride 500 ML IVC ONE ×3 (01:21→07:20)
[2018-12-15] MEDS: 0.9 % Sodium Chloride 1,000 ML IVC SCH ×3 (02:00→23:52)
[2018-12-15 03:59] LABS: Basophils % 0.6 %; Eosinophils % 0.3 %; Hematocrit 39.5 % (35.3-44.9); Hemoglobin 13.6 g/dL (11.5-15.4); Immature Granulocytes % 0.4 % (0-4); Lymphocytes # 1.5 K/mcL (0.6-4.6); Lymphocytes % 20.5 %; Mean Corpuscular HGB Conc 34.4 g/dL (31.6-35.5); Mean Corpuscular Volume 92.9 fL (83.0-100.0); Mean Platelet Volume 9.5 fL (9.4-12.4); Monocytes # 0.7 K/mcL (0.0-1.3); Monocytes % 9.8 %; Neutrophils # 4.9 K/mcL (1.6-8.9); Platelet Count 171 K/mcL (140-400); Red Blood Count 4.25 M/mcL (3.82-4.97); Red Cell Distribution Width 11.9 % (11.5-14.5); Segmented Neutrophils % 68.4 %
[2018-12-15 04:18] LABS: BUN/Creatinine Ratio 21 (6-26); Blood Urea Nitrogen 13 mg/dL (8-23); Calcium 8.4 mg/dL (8.6-10.3); Carbon Dioxide 26 mEq/L (23-29); Chloride 99 mEq/L (98-107); Glucose 89 mg/dL (70-105); Magnesium 1.5 mg/dL (1.6-2.6); Osmolality,Calculated 268 (280-300); Potassium 3.5 mEq/L (3.5-5.1); Sodium 129 mEq/L (136-145); eGFR For Non-African Americans > 60 (> 60)
[2018-12-15] MEDS: Ipratropium/Albuterol Neb 3 ML IH PRN (04:49)
[2018-12-15] MEDS: *HR* Heparin 5,000 UNIT/ML VIAL SQ SCH ×3 (05:48→20:17)
[2018-12-15] MEDS: Budesonide/Formoterol 160/4.5 1 PUFF INH IH SCH ×2 (08:21→21:57)
--- NOTE | 2018-12-15 09:42 | Internal Med Progress Note ---
Hospitalist Progress Note - Encounter Date of Encounter: 12/15/18 Time of Encounter: 09:18 - Subjective Interval History: Patient seen and examined at morning morning at bedside. No acute overnight events. Nausea improved, denies abdominal pain. No fever overnight. Denies any chest pain or difficulty breathing. - Exam Vitals: Temp Pulse Resp BP Pulse Ox 98.0 F 97 16 110/50 91 12/15/18 07:01 12/15/18 08:43 12/15/18 08:43 12/15/18 08:43 12/15/18 08:43 Exam: General: In no acute distress. Conversant. Obese. Respiratory exam: CTAB. no accessory muscle use, rales, rhonchi, wheezes Cardiovascular exam: RRR, +S1, +S2. no murmur, gallop, rubs. GI/Abdominal exam: Non-tender, Non-distended, normal bowel sounds, soft, no peritoneal signs. Extremities exam: full ROM, no pedal edema, warm, pulses palpable in b/l lower extremities. no calf tenderness Neurological exam: CN II-XII intact, AO X3, no focal deficits. no pronater drift, facial droop, speech deficit Skin exam: No skin rash, ulcer, purpura or ecchymosis. - Summary of Assessment and Plan Summary of Assessment and Plan: N/V - cholelithiasis seen on abdominal CT with findings concerning for possible cholecystitis. - Afebrile, WBC, lactic acid 1.7, bilirubin WNL. Add hepatic panel to morning lab to trend - No finding on physical exam today. nausea improve. - will hold any antibiotics for now. Recieved dose of ertapenem. - f/u Liver US. - NPO, Zofran, ketorolac and oxycodone PRN - surgery consulted. Recommendation appreciated Hyponatremia - likely related to decreased PO intake - Improving with IVF. c/w IVF Hypomagnesemia - repleted Elevated troponin - downtrending 0.07 today - without chest pain - EKG with siinus tachycardia, without ischemic signs - Likely secondary to demand ischemia and tachycardia on CAD Hypokalemia - resolved with supplementation - likely from GI loss. Monitor for now Metastatic lung carcinoma - plan to start chemotherapy soon - CXR with similar finding - f/u with oncologist as outpatient Diabetes mellitus type 2 with complications - c/w sliding scale insulin and accucheks -will continue with ACCU checks COPD - Not in exacerbation. Does not use oxygen at home - c/w oxygen, Symbicort and duonebs DVT prophylaxis -Heparin SQ - Time Spent with Patient Total time spent is greater than 50% in coordination of care (as documented) at patient's floor/unit and/or counseling patient: Internal Medicine: Result - Labs CBC & Chem 7: 12/15/18 03:32 12/15/18 03:32 Labs: Short CBC 12/14/18 12/15/18 Range/Units 21:21 03:32 WBC 10.0 7.1 (4.3-11.1) K/mcL Hgb 14.8 D 13.6 (11.5-15.4) g/dL Hct 41.8 39.5 (35.3-44.9) % Plt Count 200 171 (140-400) K/mcL Neutrophils # 8.0 4.9 (1.6-8.9) K/mcL BMP 12/14/18 12/15/18 21:20 03:32 Sodium 127 L 129 L Potassium 3.3 L 3.5 Chloride 94 L 99 Carbon Dioxide 25 26 BUN 14 13 Creatinine 0.58 L 0.62 Glucose 102 89 Calcium 8.8 8.4 L Cardiac Enzymes 12/14/18 12/15/18 Range/Units 21:20 03:32 Troponin I 0.08 H* 0.07 H* (< 0.04) ng/mL - ABG Interpretation ABG results: PT/INR, D-dimer PT 12.3 Seconds (9.4-12.1) H 12/14/18 21:20 Consult Discharge Plan - Plan Referrals: Maisha Ruth, [facility] [Primary Care Provider] - 12/24/18 1:20 pm
[2018-12-15 10:13] LABS: Alanine Aminotransferase 9 Units/L (7-52); Albumin 2.9 g/dL (3.5-5.7); Albumin/Globulin Ratio 1.5 (1.1-2.2); Alkaline Phosphatase 46 Units/L (34-104); Aspartate Amino Transferase 16 Units/L (13-39); Bilirubin,Direct 0.1 mg/dL (0.0-0.2); Bilirubin,Indirect 0.3 mg/dL (0.0-1.2); Bilirubin,Total 0.4 mg/dL (0.3-1.0); Globulin 1.9 g/dL (2.4-3.5); Total Protein 4.8 g/dL (6.4-8.9)
[2018-12-15] MEDS: OXYCODONE Oral CONC 10 MG/0.5 ML ORAL.SYG SL PRN (11:03)
--- NOTE | 2018-12-15 12:38 | General Surgery Consult Note ---
Date of Encounter: 12/15/18 Time of Encounter: 12:37 History of Present Illness Reason for consult: gallstones (nausea, vomiting and hypotension) Requesting physician: Naye Ruth History of present illness: 63 yo, transferred from [facility] for further evaluation and treatment cholelithiasis possible choledocholithiasis. The patient describes becoming acutely ill , 12/10/18, with upper abdominal pain, nausea, vomiting, and diarrhea. Patient was unable to keep anything down. She ultimately presented to the [facility] facility, 12/14/2018, due to worsening symptoms. Laboratories on presentation included a white count of 12.7 with hemoglobin 17.8 hematocrit 49.2; neutrophils 10.4; sodium 122, potassium 3.4, chloride 84, BUN 24, creatinine 1.02. Calcium was markedly elevated to 11.5. LFTs were unremarkable. Troponin was notably elevated at 0.09. CT abdomen and pelvis demonstrated a 12 mm solid nodule right lower lung which is neoplastic along with several subcentimeter nodules left lower lung. There was also noted stable small pericardial effusion small, cholelithiasis with no dis tinct gallbladder wall thickening or ductal dilatation. Past medical history: Is notable for recently diagnosed lung cancer, approximately 2 weeks ago. Chemotherapy is planned but has yet to be initiated. The patient's history is also notable for COPD, coronary disease, diabetes, hyperlipidemia, hypertension, peripheral vascular disease, multiple cerebral infarctions, anxiety, depression, bipolar disorder and panic disorder. Surgical history: Bilateral CEA, bilateral lower extremity stenting Allergies: Penicillin Medications: Budesonide/formoterol 160/4.5 2 puffs twice a day Cilostazol 100 mg by mouth twice a day Cyclobenzaprine 10 mg by mouth daily Hydrocodone with acetaminophen 7.5/325 mg 1 by mouth every 6 hours when necessary Lipase/protease/amylase (Creon DR) 12,000 units 2 tabs by mouth before meals and at bedtime Clonazepam 1 mg by mouth 4 times a day Zolpidem 10 mg by mouth daily at bedtime Metformin 500 mg by mouth daily at bedtime Risperidone 1 mg by mouth daily at bedtime Social history: Patient is G1, P1; the patient admits to one half packs per day for over 40 years, she indicates she quit smoking about 2 weeks ago. The patient denies any alcohol or illicit drug use On physical examination: 63-year-old female, resting comfortably in her hospital bed she does appear older than her stated age. But she is no longer in acute distress. The patient indicates that she is feeling much improved and is "hungry". Since transfer: Patient is afebrile, 98.0; pulse 90, respirations 18, blood pressure 85/62, SPO2 on 3 L/min per nasal cannula 95-97% Skin: Is warm without obvious jaundice Lungs: Clear, no obvious abdominal pain on deep inspiration Cardiac: Regular rate with no appreciable murmurs Abdomen: Minimally tender in the right upper quadrant without discernible hepatosplenomegaly or intra-abdominal masses. No peritoneal signs or rebound. Hypoactive bowel sounds Extremities without obvious clubbing, cyanosis, or edema CT abdomen and pelvis was reviewed with [facility] - the pertinent findings are noted in the HPI Ultrasound of the liver completed this morning was also reviewed with [facility] - findings include sledge and stone with borderline wall thickening; no Pericholecystic fluid or ductal dilatation. The CBD measures 3 mm in diameter. Impression: 63-year-old, transferred from [facility] after presenting to the emergency department there with a 3-4 day history of acute right upper quadrant and epigastric abdominal pain, nausea, vomiting, and diarrhea. The patient also describes being febrile though no fever has been documented. The patient is hypotensive with hemoconcentration consistent with severe dehydration. Patient has recently been diagnosed with lung cancer Review of historical data are indicative that blood pressure is usually 106/68; sodium is usually within normal range (138); and calcium has not been notably elevated. The hypercalcemia may be due to the significant dehydration versus a newly diagnosed lung cancer. It appears that the patient has had severe prolonged biliary colic with resultant nausea, vomiting, and diarrhea resulting in the dehydration. The patient has been aggressively rehydrated with fluid boluses - WBC currently 7.1, hemoglobin 13.6, hematocrit 39.5. Neutrophilia also resolved. Troponins are elevated and the patient has a significant history of tobacco use as well as peripheral vascular disease. Before surgery (cholecystectomy) is considered, cardiac evaluation is recommended as well as input from [facility] regarding the patient's newly diagnosed lung cancer. The patient is a reasonable candidate for laparoscopic cholecystectomy, however, has multiple significant comorbidities that increase the risk of surgery. This has been discussed briefly with Dr. Gamboa [facility]. I will follow along with you and make further recommendations based on patient 's response to intervention and results of further evaluation. Past Med Surg Social Fam HX - Past Medical History Medical history: cancer, COPD, coronary artery disease, diabetes, hyperlipidemia, hypertension, migraine, peripheral artery disease Additional medical history: ulnar neuropathy, LUE, peripheral vascular disease, lumbar facet arthropathy, disorder of scrum, multiple cerebral infarctions, Psychiatric history: anxiety, bipolar, depression, panic disorder - Past Surgical History Surgical History: angioplasty/stent, carotid endarterectomy, other, vascular surgery, LE stent (s), LE vascular intervention Additional surgical history: BILAT CEA, LLE STENTS PLACED, RLE STENTS PLACED. - Social History Smoking Status: Current every day smoker Smokeless Tobacco Status: No Alcohol use: none Drug use: none - Family History Father History Unknown: Yes Family Member Ethnicity: Non- Living Status: Hx Family Cardiac Disorders: Yes (CHF) Mother History Unknown: Yes Family Member Ethnicity: Non- Living Status: Hx Family Cardiac Disorders: Yes (CHF) Hx Family Neurologic Disorders: Yes Medications and Allergies Budesonide/Formoterol 160/4.5 [Symbicort 160/4.5] 2 puff IH BIDR 12/14/18 [History] Cilostazol [Pletal] 100 mg PO BID 12/14/18 [History] Cyclobenzaprine [Flexeril] 10 mg PO DAILY 12/14/18 [History] HYDROcodone/Acet 7.5/325 mg [[place] 7.5-325 mg] 1 tab PO Q6H PRN 12/14/18 [History] Lipase/Protease/Amylase [Maryann Wilks 12,000 Units Capsule] 2 each PO ACHS 12/14/18 [History] Zolpidem [Ambien] 10 mg PO HS 12/14/18 [History] clonazePAM [Clonazepam] 1 mg PO QID 12/14/18 [History] metFORMIN [Glucophage] 500 mg PO HS 12/14/18 [History] risperiDONE [Risperidone] 1 mg PO HS 12/14/18 [History] Allergy/AdvReac Type Severity Reaction Status Date / Time Penicillins Allergy Hives Verified 12/09/18 10:57 Review of Systems All systems PM: The remainder of the systems were reviewed and are negative General Surgery Exam Initial Vital Signs Temp Pulse Resp BP Pulse Ox 98.0 F 94 18 142/86 94 12/14/18 19:48 12/14/18 19:48 12/14/18 19:48 12/14/18 19:48 12/14/18 19:48 Exam Initial Vital Signs Temp Pulse Resp BP Pulse Ox 98.0 F 94 18 142/86 94 12/14/18 19:48 12/14/18 19:48 12/14/18 19:48 12/14/18 19:48 12/14/18 19:48 Results - Labs 12/15/18 03:32 12/15/18 03:32 Abnormal lab results PT 12.3 Seconds (9.4-12.1) H 12/14/18 21:20 APTT 45.7 Seconds (26.0-36.0) H 12/14/18 21:20 Sodium 129 mEq/L (136-145) L 12/15/18 03:32 Calculated Osmolality 268 (280-300) L 12/15/18 03:32 Calcium 8.4 mg/dL (8.6-10.3) L 12/15/18 03:32 Magnesium 1.5 mg/dL (1.6-2.6) L 12/15/18 03:32 Troponin I 0.07 ng/mL (< 0.04) H* 12/15/18 03:32 Serum Total Protein 4.8 g/dL (6.4-8.9) L 12/15/18 03:32 Albumin 2.9 g/dL (3.5-5.7) L 12/15/18 03:32 Globulin 1.9 g/dL (2.4-3.5) L 12/15/18 03:32 Diabetes panel 12/14/18 12/15/18 Range/Units 21:20 03:32 Sodium 127 L 129 L (136-145) mEq/L Potassium 3.3 L 3.5 (3.5-5.1) mEq/L Chloride 94 L 99 (98-107) mEq/L Carbon Dioxide 25 26 (23-29) mEq/L BUN 14 13 (8-23) mg/dL Creatinine 0.58 L 0.62 (0.60-1.20) mg/dL Glucose 102 89 (70-105) mg/dL Calcium 8.8 8.4 L (8.6-10.3) mg/dL AST 16 (13-39) Units/L ALT 9 (7-52) Units/L Alkaline Phosphatase 46 (34-104) Units/L Albumin 2.9 L (3.5-5.7) g/dL Calcium panel 12/14/18 12/15/18 Range/Units 21:20 03:32 Calcium 8.8 8.4 L (8.6-10.3) mg/dL Albumin 2.9 L (3.5-5.7) g/dL Pituitary panel 12/14/18 12/15/18 Range/Units 21:20 03:32 Sodium 127 L 129 L (136-145) mEq/L Potassium 3.3 L 3.5 (3.5-5.1) mEq/L Chloride 94 L 99 (98-107) mEq/L Carbon Dioxide 25 26 (23-29) mEq/L BUN 14 13 (8-23) mg/dL Creatinine 0.58 L 0.62 (0.60-1.20) mg/dL Glucose 102 89 (70-105) mg/dL Calcium 8.8 8.4 L (8.6-10.3) mg/dL Adrenal panel 12/14/18 12/15/18 Range/Units 21:20 03:32 Sodium 127 L 129 L (136-145) mEq/L Potassium 3.3 L 3.5 (3.5-5.1) mEq/L Chloride 94 L 99 (98-107) mEq/L Carbon Dioxide 25 26 (23-29) mEq/L BUN 14 13 (8-23) mg/dL Creatinine 0.58 L 0.62 (0.60-1.20) mg/dL Glucose 102 89 (70-105) mg/dL Calcium 8.8 8.4 L (8.6-10.3) mg/dL Total Bilirubin 0.4 (0.3-1.0) mg/dL AST 16 (13-39) Units/L ALT 9 (7-52) Units/L Alkaline Phosphatase 46 (34-104) Units/L Albumin 2.9 L (3.5-5.7) g/dL All other labs normal. Consult Discharge Plan - Plan Referrals: Maisha Ruth, KJ [Primary Care Provider] - 12/24/18 1:20 pm
--- NOTE | 2018-12-15 13:59 | Cardiology Consult Note ---
Addendum entered and electronically signed by Moshe Foote DO 12/15/18 15:10: I have personally performed a face to face evaluation on this patient. I have reviewed and agree with the care plan. History and Exam by me shows: Patient seen and examined. Chart reviewed. Known CAD, occluded LAD. Given reduced functional capacity and multiple comorbidities, patient represents a moderate to high risk patient for this moderate risk procedure. Patient voiced understanding and wishes to proceed with surgery if medically necessary. TTE ordered. Recommend resume aspirin/statin therapy. Will hold BB given pulmonary issues and short time to surgery. Continue supportive care to optimize status prior to surgery. Consider pulmonary evaluation to optimize pulmonary status. All questions answered. Thanks, Moshe Foote DO, [facility] Original Note: Date of Encounter: 12/15/18 Time of Encounter: 13:20 Assessment and Plan (1) Pre-operative cardiovascular examination Current Visit: Yes Status: Acute Risk stratification requested prior to cholecystectomy by Dr. Patricia--possibly on . 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 Otherwise, non-obstructive CAD. Patient denies chest pain/discomfort prior to admission, not physically active aside from simple errands and housework. ECG upon presentation unchanged. Troponin adynamic, mild elevated. Presentation is not consistent with ACS. Given multiple co-morbidities and known CLINIC COORDINATOR of pLAD, patient is considered at least moderate to high risk surgical candidate from CV standpoint. Check TTE to evaluate structure and function. Further recommendations following results. (2) Acute cholecystitis Current Visit: Yes Status: Acute Discussion w patient/family: The assessment and plan as outlined above was discussed with the patient and/or family members who expressed understanding and agreement. All questions were answered. Thank you for involving us in the care of your patient. Please call with any questions. The patient will be discussed and reviewed with Dr. Foote; changes to be made accordingly. History of Present Illness Consult date: 12/15/18 Requesting physician: Leann Gamboa Consult reason: Preoperative risk assessment Chief complaint: Abdominal pain History of present illness: Ms. Mace is a 63 year old female with multiple co-morbidities including DMII, HTN, HLD, multiple CVAs (pt. reports TIAs), HLD, COPD, CAD, and PVD (bilateral CEA's, peripheral stenting) who presented to the ED as a transfer from [facility] for acute cholecystitis. She reports acute onset of severe abdominal pain associated with nausea/vomiting that initially started on Friday and worsened through the weekend which prompted ED evaluation. Of note, new diagnosis of lung cancer 2 weeks ago, had initially planned to start chemotherapy this coming Friday. Cardiology consulted today for preoperative risk stratification prior to lap lonnie with Dr. Patricia--possible OR date . Upon arrival to ED, troponin mildly elevated at 0.08, 0.07. ECG unchanged from previous. Recent CV testing: TTE 06/04/17: LVEF 60%, hypokinesis of the mid anteroseptum, apical septum; moderate LVDD, normal RV structure and function, mild-moderate dilated LA, no significant valvular dysfunction LHC 06/18/17: severe 1v CAD with ipsilateral collaterals--100% pLAD; otherwise, mild non-obstructive CAD in diag, 30% mLCx, 50% Om1, mild non- obstructive left PDA; RCA is free of disease; EF 65% Past Med Surg Social Fam HX - Past Medical History Attestation: Yes The following information was validated with the patient. Source: patient Medical history: cancer, CHF (diastolic), COPD, coronary artery disease, diabetes, hyperlipidemia, hypertension, migraine, peripheral artery disease Additional medical history: ulnar neuropathy, LUE, peripheral vascular disease, lumbar facet arthropathy, disorder of scrum, multiple cerebral infarctions, Psychiatric history: anxiety, bipolar, depression, panic disorder - Past Surgical History Surgical History: angioplasty/stent, carotid endarterectomy, other, vascular surgery, LE stent (s), LE vascular intervention Additional surgical history: BILAT CEA, LLE STENTS PLACED, RLE STENTS PLACED. - Social History Smoking Status: Current every day smoker Smokeless Tobacco Status: No Alcohol use: none Drug use: none - Family History Father History Unknown: Yes Family Member Ethnicity: Non- Living Status: Hx Family Cardiac Disorders: Yes (CHF) Mother History Unknown: Yes Family Member Ethnicity: Non- Living Status: Hx Family Cardiac Disorders: Yes (CHF) Hx Family Neurologic Disorders: Yes Medications and Allergies Budesonide/Formoterol 160/4.5 [Symbicort 160/4.5] 2 puff IH BIDR 12/14/18 [His tory] Cilostazol [Pletal] 100 mg PO BID 12/14/18 [History] Cyclobenzaprine [Flexeril] 10 mg PO DAILY 12/14/18 [History] HYDROcodone/Acet 7.5/325 mg [[place] 7.5-325 mg] 1 tab PO Q6H PRN 12/14/18 [Histor y] Lipase/Protease/Amylase [Creon Dr 12,000 Units Capsule] 2 each PO ACHS 12/14/18 [History] Zolpidem [Ambien] 10 mg PO HS 12/14/18 [History] clonazePAM [Clonazepam] 1 mg PO QID 12/14/18 [History] metFORMIN [Glucophage] 500 mg PO HS 12/14/18 [History] risperiDONE [Risperidone] 1 mg PO HS 12/14/18 [History] Allergy/AdvReac Type Severity Reaction Status Date / Time Penicillins Allergy Hives Verified 12/09/18 10:57 All Systems Review: The remainder of the systems were reviewed and are negative - Cardiovascular Cardiovascular: as per HPI Physical Examination Vital Signs, Last 4 Hours Temp Pulse Resp BP Pulse Ox 12/15/18 12:27 93 18 85/62 97 12/15/18 11:28 98.0 F 90 18 85/62 95 12/15/18 10:56 92 18 93/63 97 General: Conversant, No Apparent Distress HEENT: Atraumatic, Normocephaly, Mucus Membranes Moist Cardiac: Reg Rate and Rhythm, Normal S1 and S2 Lungs: Normal Breath Sounds Neuro: Alert and responsive Abdomen: Soft, Other (mild tenderness upon exam) Skin: No rashes noted on visualized skin Musculoskeletal: No Chest Wall Tenderness Extremities: No Edema, Normal Pulses Results 12/15/18 03:32 12/15/18 03:32 Lab Results 12/14/18 12/14/18 12/14/18 21:20 21:20 21:20 WBC Hgb Hct Plt Count INR 1.1 APTT 45.7 H Sodium 127 L Potassium 3.3 L Chloride 94 L Carbon Dioxide 25 BUN 14 Creatinine 0.58 L Glucose 102 Calcium 8.8 Magnesium Total Bilirubin AST ALT Alkaline Phosphatase Troponin I 0.08 H* 12/14/18 12/15/18 12/15/18 21:21 03:32 03:32 WBC 10.0 7.1 Hgb 14.8 D 13.6 Hct 41.8 39.5 Plt Count 200 171 INR APTT Sodium Potassium Chloride Carbon Dioxide BUN Creatinine Glucose Calcium Magnesium Total Bilirubin AST ALT Alkaline Phosphatase Troponin I 0.07 H* 12/15/18 03:32 WBC Hgb Hct Plt Count INR APTT Sodium 129 L Potassium 3.5 Chloride 99 Carbon Dioxide 26 BUN 13 Creatinine 0.62 Glucose 89 Calcium 8.4 L Magnesium 1.5 L Total Bilirubin 0.4 AST 16 ALT 9 Alkaline Phosphatase 46 Troponin I Active Medications Albuterol/Ipratropium (Duoneb) 3 ml IH [id number] PRN PRN Reason: Shortness Of Breath/Wheezing Stop: 06/15/19 21:26 Last Admin: 12/15/18 04:49 Dose: 3 ml Budesonide/Formoterol Fumarate (Symbicort) 2 puff IH BIDR [facility]; Protocol Stop: 06/15/19 22:01 Last Admin: 12/15/18 08:21 Dose: 2 puff Dextrose/Water (Dextrose 50% (Syg)) 25 ml IVP AD PRN PRN Reason: Hypoglycemia Stop: 06/15/19 21:27 Glucose (Gluctose) 15 gm PO ONCE PRN PRN Reason: Hypoglycemia Stop: 06/15/19 21:27 Glucose (Gluctose) 30 gm PO ONCE PRN PRN Reason: Hypoglycemia Stop: 06/15/19 21:27 Heparin Sodium (Porcine) (Heparin) 5,000 unit SQ Q8HCO [facility] Stop: 06/15/19 22:01 Last Admin: 12/15/18 13:59 Dose: 5,000 unit Sodium Chloride (0.9 % Sodium Chloride) 1,000 mls @ 100 mls/hr IVC .Q10H [facility] Last Admin: 12/15/18 12:39 Dose: 100 mls/hr Insulin Human Lispro (Humalog) 0 units SQ Q6HR [facility]; Protocol Stop: 06/16/19 00:01 Last Admin: 12/15/18 11:41 Dose: Not Given Ketorolac Tromethamine (Toradol) 30 mg IVP Q6HR PRN PRN Reason: mild to moderate pain Stop: 12/19/18 21:27 Last Admin: 12/14/18 21:55 Dose: 30 mg Naloxone HCl (Narcan) 0.4 mg IVP Q2MIN PRN PRN Reason: SEE COMMENTS Stop: 06/15/19 21:27 Ondansetron HCl (Zofran) 4 mg IVP Q6HR PRN; Protocol PRN Reason: Nausea And Vomiting Stop: 06/15/19 21:06 Last Admin: 12/14/18 21:56 Dose: 4 mg Oxycodone HCl (Oxycodone Oral Conc) 5 mg SL Q4H PRN; Protocol PRN Reason: mild to moderate pain Stop: 06/15/19 21:27 Last Admin: 12/15/18 11:03 Dose: 5 mg Risperidone (Risperdal) 1 mg PO HS [facility] Stop: 06/16/19 21:01 Zolpidem Tartrate (Ambien) 10 mg PO HS [facility]; Protocol Stop: 06/16/19 21:01 - Imaging and Cardiology Echo: report reviewed Cardiac cath: report reviewed Other Results: 12 hour tele: avg HR=93. No significant events noted. - EKG Interpretation EKG results cardiology: personally reviewed Consult Discharge Plan - Plan Referrals: Maisha Ruth [facility] [Primary Care Provider] - 12/24/18 1:20 pm
[2018-12-15] MEDS ORDERED: 0.9 % Sodium Chloride 1,000 ML IVC ONE (14:35)
[2018-12-15] MEDS: Aspirin 81 MG TAB.CHEW PO SCH (15:29)
[2018-12-15 15:54] LABS: Thyroid Stimulating Hormone 0.31 mcIU/mL (0.340-5.600)
--- NOTE | 2018-12-15 16:17 | Pulmonology Consult Note ---
Date of Encounter: 12/15/18 Time of Encounter: 15:30 Assessment and Plan (1) Cholelithiasis Current Visit: Yes Status: Acute Patient has this cholelithiasis surgery is following we will cover with broad- spectrum antibiotics and told the recommendations to Dr. Gamboa the hospitalist to start on broad-spectrum antibiotics like Zosyn. Qualifiers: Cholelithiasis location: gallbladder Qualified Code(s): K80.00 - Calculus of gallbladder with acute cholecystitis without obstruction (2) Hypotension Current Visit: Yes Status: Acute Patient has been hypertensive for few hours patient is asymptomatic with good tissue perfusion with good urine output and with normal lactic acid. There is no significant metabolic respiratory acidosis which was found with a blood gas. Patient random cortisol is very low at 4.5 which I think is a very inappropriate response to the current level of stress the patient is undergoing . Will try hydrocortisone 100 mg IV every 8 hours. If there is signs of symptomatic hypotension with decreased urine output with increasing lactic acid patient should be transferred to ICU for vasopressor support. This moment patient is perfusing well will keep her in 2 N. if things change please have a low threshold to transfer to ICU. Qualifiers: Hypotension type: other hypotension type Qualified Code(s): I95.89 - Other hypotension (3) Adrenal insufficiency Current Visit: Yes Status: Acute Patient Random Cortisol around 4.9 shows significant adrenal insufficiency in the setting of stress the cortisol should be at least around 20-23.I told Dr. Gamboa to start on Hydrocortisone 100mg IV 8hrly. History of Present Illness Consult date: 12/15/18 Requesting physician: Leann Gamboa Chief complaint: Abdominal pain , Nausea and Vomitting History of present illness: 63-year-old female with past medical history of Squamous cell carcinoma of lung, COPD, CHF, coronary artery disease comes with 5 days history of nausea vomiting abdominal pain found to have cholecystitis and choledocholithiasis patient says she is feeling a lot better denies much cough or sputum production denies any fever or chills or any other constitutional symptoms denies any chest pain or chest tightness patient denies any focal neurological deficit denies any headache, denies any abdominal pain. Critical care was consulted that for evaluation of this hypotension and further management and recommendation. Past Med Surg Social Fam HX - Past Medical History Medical history: cancer, CHF (diastolic), COPD, coronary artery disease, diabetes, hyperlipidemia, hypertension, migraine, peripheral artery disease Additional medical history: ulnar neuropathy, LUE, peripheral vascular disease, lumbar facet arthropathy, disorder of scrum, multiple cerebral infarctions, Psychiatric history: anxiety, bipolar, depression, panic disorder - Past Surgical History Surgical History: angioplasty/stent, carotid endarterectomy, other, vascular surgery, LE stent (s), LE vascular intervention Additional surgical history: BILAT CEA, LLE STENTS PLACED, RLE STENTS PLACED. - Social History Smoking Status: Current every day smoker Smokeless Tobacco Status: No Alcohol use: none Drug use: none - Family History Father History Unknown: Yes Family Member Ethnicity: Non- Living Status: Hx Family Cardiac Disorders: Yes (CHF) Mother History Unknown: Yes Family Member Ethnicity: Non- Living Status: Hx Family Cardiac Disorders: Yes (CHF) Hx Family Neurologic Disorders: Yes Medications and Allergies Budesonide/Formoterol 160/4.5 [Symbicort 160/4.5] 2 puff IH BIDR 12/14/18 [History] Cilostazol [Pletal] 100 mg PO BID 12/14/18 [History] Cyclobenzaprine [Flexeril] 10 mg PO DAILY 12/14/18 [History] HYDROcodone/Acet 7.5/325 mg [[place] 7.5-325 mg] 1 tab PO Q6H PRN 12/14/18 [History] Lipase/Protease/Amylase [Creon Dr 12,000 Units Capsule] 2 each PO ACHS 12/14/18 [History] Zolpidem [Ambien] 10 mg PO HS 12/14/18 [History] clonazePAM [Clonazepam] 1 mg PO QID PRN 12/14/18 [History] metFORMIN [Glucophage] 500 mg PO HS 12/14/18 [History] risperiDONE [Risperidone] 1 mg PO HS 12/14/18 [History] Citalopram [CeleXA] 40 mg PO DAILY 12/15/18 [History] Clopidogrel [Plavix] 75 mg PO DAILY 12/15/18 [History] Doxepin [Sinequan] 75 mg PO HS 12/15/18 [History] Simvastatin [Zocor] 40 mg PO HS 12/15/18 [History] lamoTRIgine [Lamictal Xr] 100 mg PO DAILY 12/15/18 [History] Allergy/AdvReac Type Severity Reaction Status Date / Time Penicillins Allergy Hives Verified 12/09/18 10:57 All Systems: The remainder of the systems were reviewed are negative Physical Examination Vital Signs: Vital Signs, Last 4 Hours Temp Pulse Resp BP Pulse Ox 12/15/18 15:52 98.9 F 92 16 81/64 94 12/15/18 15:15 91 16 80/59 95 12/15/18 13:57 96 16 94 12/15/18 12:27 93 18 85/62 97 General appearance: no acute distress Auscultation: bilateral: diminished breath sounds (in the bases ) Gastrointestinal: other (soft mild hypochondriac tenderness) unable to assess due to mental status other Results - Laboratory Findings CBC and BMP: 12/15/18 03:32 12/15/18 03:32 PT/INR, D-dimer PT 12.3 Seconds (9.4-12.1) H 12/14/18 21:20 Abnormal lab findings: Abnormal lab results PT 12.3 Seconds (9.4-12.1) H 12/14/18 21:20 APTT 45.7 Seconds (26.0-36.0) H 12/14/18 21:20 Sodium 129 mEq/L (136-145) L 12/15/18 03:32 Calculated Osmolality 268 (280-300) L 12/15/18 03:32 Calcium 8.4 mg/dL (8.6-10.3) L 12/15/18 03:32 Magnesium 1.5 mg/dL (1.6-2.6) L 12/15/18 03:32 Troponin I 0.07 ng/mL (< 0.04) H* 12/15/18 03:32 Serum Total Protein 4.8 g/dL (6.4-8.9) L 12/15/18 03:32 Albumin 2.9 g/dL (3.5-5.7) L 12/15/18 03:32 Globulin 1.9 g/dL (2.4-3.5) L 12/15/18 03:32 TSH 0.310 mcIU/mL (0.340-5.600) L 12/15/18 15:03 - Microbiology Findings Microbiology Findings: Microbiology, Last 48 Hours 12/15/18 15:00 Blood Culture - Preliminary Peripheral Venipuncture Culture is incubating and being continuously monitored for growth. Final report to follow. 12/15/18 15:03 Blood Culture - Preliminary Peripheral Venipuncture Culture is incubating and being continuously monitored for growth. Final report to follow. - Clinical Findings Intake & Output: Intake & Output 12/15/18 12/15/18 12/15/18 07:59 15:59 23:59 Intake Total 1000 / 1000 1584 / 1584 Output Total 850 / 850 500 / 500 Balance 150 / 150 1084 / 1084 Weight 83 kg Consult Discharge Plan - Plan Referrals: Maisha Ruth, [employer] [Primary Care Provider] - 12/24/18 1:20 pm
[2018-12-15 16:33] LABS: ABG Base Excess 2 mEq/L (-2 to 3); ABG HCO3 28 mEq/L (21-27); ABG Oxygen Saturation 93 % (95-98); ABG PCO2 50 mmHg (35-45); ABG PH 7.35 pH Units (7.32-7.45); ABG PO2 69 mmHg (85-104); ABG TCO2 30 mEq/L (20-26)
[2018-12-15] MEDS: Cefepime HCl 1,000 MG in Water for inj. (sterile) 20 ML 10 ML IVP SCH ×2 (17:13→23:51)
[2018-12-15] MEDS: Pantoprazole 40 MG VIAL IVP SCH (17:13)
[2018-12-15] MEDS: Hydrocortisone Sodium Succ 100 MG/2 ML VIAL IVP SCH ×2 (17:14→23:51)
[2018-12-15] MEDS: Ketorolac 30 MG/ML VIAL IVP PRN (17:22)
[2018-12-15] MEDS ORDERED: Perflutren Lipid Microsphere 1.3 ML in 0.9 % Sodium Chloride 8.7 ML IVP ONE (20:12)
[2018-12-15] MEDS: risperiDONE 1 MG TABLET PO SCH (20:17)
[2018-12-15] MEDS ORDERED: Perflutren Lipid Microsphere 2 ML VIAL ONE (20:20)
[2018-12-16 03:45] LABS: Basophils % 0.2 %; Hematocrit 39.8 % (35.3-44.9); Hemoglobin 13.2 g/dL (11.5-15.4); Immature Granulocytes % 0.7 % (0-4); Lymphocytes # 0.5 K/mcL (0.6-4.6); Lymphocytes % 9.5 %; Mean Corpuscular HGB Conc 33.2 g/dL (31.6-35.5); Mean Corpuscular Volume 96.6 fL (83.0-100.0); Mean Platelet Volume 9.3 fL (9.4-12.4); Monocytes # 0.3 K/mcL (0.0-1.3); Monocytes % 4.6 %; Neutrophils # 4.6 K/mcL (1.6-8.9); Platelet Count 156 K/mcL (140-400); Red Blood Count 4.12 M/mcL (3.82-4.97); Red Cell Distribution Width 11.8 % (11.5-14.5)
[2018-12-16] MEDS: Ipratropium/Albuterol Neb 3 ML IH PRN ×2 (03:52→07:45)
[2018-12-16 04:04] LABS: BUN/Creatinine Ratio 20 (6-26); Blood Urea Nitrogen 10 mg/dL (8-23); Calcium 8.4 mg/dL (8.6-10.3); Carbon Dioxide 27 mEq/L (23-29); Chloride 105 mEq/L (98-107); Glucose 140 mg/dL (70-105); Osmolality,Calculated 281 (280-300); Potassium 3.8 mEq/L (3.5-5.1); Sodium 135 mEq/L (136-145); eGFR For Non-African Americans > 60 (> 60)
[2018-12-16] MEDS: Insulin LISPRO 300 UNITS/3 ML VIAL SQ SCH ×4 (06:04→23:02)
[2018-12-16] MEDS: *HR* Heparin 5,000 UNIT/ML VIAL SQ SCH ×3 (06:04→23:01)
[2018-12-16] MEDS ORDERED: *HR* Water for inj. (sterile) Vial IV ONE (07:26)
[2018-12-16] MEDS ORDERED: *HR* Midazolam HCl 5 MG/5 ML VIAL IVP ONE ×2 (07:26→15:47)
[2018-12-16] MEDS ORDERED: *HR* Etomidate 20 MG/10 ML AMPUL IVP ONE (07:26)
[2018-12-16] MEDS ORDERED: *HR* LORazepam 2 MG/ML VIAL IVP ONE (07:26)
[2018-12-16] MEDS: Budesonide/Formoterol 160/4.5 1 PUFF INH IH SCH ×2 (07:44→22:12)
[2018-12-16] MEDS: Cefepime HCl 1,000 MG in Water for inj. (sterile) 20 ML 10 ML IVP SCH ×3 (08:16→23:01)
[2018-12-16] MEDS: Pantoprazole 40 MG VIAL IVP SCH (08:17)
[2018-12-16] MEDS: Hydrocortisone Sodium Succ 100 MG/2 ML VIAL IVP SCH ×3 (08:17→23:01)
[2018-12-16] MEDS: Aspirin 81 MG TAB.CHEW PO SCH (08:17)
[2018-12-16] MEDS: Ketorolac 30 MG/ML VIAL IVP PRN ×2 (08:27→14:52)
--- NOTE | 2018-12-16 09:17 | Internal Med Progress Note ---
Hospitalist Progress Note - Encounter Date of Encounter: 12/16/18 Time of Encounter: 09:14 - Subjective Interval History: Patient seen and examined at morning morning at bedside. No acute overnight events. Denies any symptoms . No fever overnight. Denies any chest pain. Had some shortness of breath overnight. Denies any dizziness or lightheadedness while ambulating with nurse. Did not get Zaman catheter placed yesterday. Said went to pass urine multiple times. - Exam Vitals: Temp Pulse Resp BP Pulse Ox 98.7 F 98 20 107/79 93 12/16/18 07:50 12/16/18 08:37 12/16/18 08:34 12/16/18 07:50 12/16/18 08:34 Exam: General: In no acute distress. Conversant. Obese. Respiratory exam: diffuse rhonchi. No crackles Cardiovascular exam: RRR, +S1, +S2. no murmur, gallop, rubs. GI/Abdominal exam: Non-tender, Non-distended, normal bowel sounds, soft, no peritoneal signs. Extremities exam: full ROM, Trace pedal edema, warm, pulses palpable in b/l lower extremities. no calf tenderness Neurological exam: CN II-XII intact, AO X3, no focal deficits. no pronater drift, facial droop, speech deficit Skin exam: No skin rash, ulcer, purpura or ecchymosis. - Summary of Assessment and Plan Summary of Assessment and Plan: N/V - cholelithiasis seen on abdominal CT with findings concerning for possible cholecystitis. - Nausea, vomiting pain resoled. Likely biliary colic per surgery. - started on zosyn empirically given hypotension. - Liver US with cholelitahisis with borderline GB wall thickening. - surgery consulted. Recommendation appreciated. Tentative plan for surgery for cholecystectomy. Patient will be mod-high risk for surgery per cardiology. f/u ECHO Dyspnea - Signs of COPD exacerbation. May be related to fluid overload as with trace-1+ edema. - Will get CXR. decreased IVF - Start schedule duonebs. c/w symbicort. Hypotension - Possible adrenal insufficiency given low random cortisol. Was on steroids for COPD once in past year - s/p Volume resuscitation with 4 Lit positive. BP improving with MAP >65. - IVF decreased given some pedal edema and shortness of breath. f/u CXR - put zaman to monitor urine output. - Started on empiric zosyn. - c/w stress dose steroids and PPI Hyponatremia - likely related to decreased PO intake - Improving with IVF. c/w IVF. Hypomagnesemia - repleted Elevated troponin - downtrending 0.07 today - without chest pain - EKG with siinus tachycardia, without ischemic signs - Likely secondary to demand ischemia and tachycardia on CAD Hypokalemia - resolved with supplementation - likely from GI loss. Monitor for now Metastatic lung carcinoma - plan to start chemotherapy soon - CXR with similar finding - f/u with oncologist as outpatient Diabetes mellitus type 2 with complications - c/w sliding scale insulin and accucheks - will continue with ACCU checks DVT prophylaxis -Heparin SQ - Time Spent with Patient Total time spent is greater than 50% in coordination of care (as documented) at patient's floor/unit and/or counseling patient: Internal Medicine: Result - Labs CBC & Chem 7: 12/16/18 03:30 12/16/18 03:30 Labs: Short CBC 12/16/18 Range/Units 03:30 WBC 5.5 (4.3-11.1) K/mcL Hgb 13.2 (11.5-15.4) g/dL Hct 39.8 (35.3-44.9) % Plt Count 156 (140-400) K/mcL Neutrophils # 4.6 (1.6-8.9) K/mcL BMP 12/15/18 12/16/18 03:32 03:30 Sodium 129 L 135 L Potassium 3.5 3.8 Chloride 99 105 Carbon Dioxide 26 27 BUN 13 10 Creatinine 0.62 0.50 L Glucose 89 140 H Calcium 8.4 L 8.4 L Liver Function 12/15/18 Range/Units 03:32 Total Bilirubin 0.4 (0.3-1.0) mg/dL Direct Bilirubin 0.1 (0.0-0.2) mg/dL AST 16 (13-39) Units/L ALT 9 (7-52) Units/L Alkaline Phosphatase 46 (34-104) Units/L Albumin 2.9 L (3.5-5.7) g/dL - ABG Interpretation ABG results: ABG ABG pH 7.35 pH Units (7.32-7.45) 12/15/18 16:30 ABG pCO2 50 mmHg (35-45) H 12/15/18 16:30 ABG pO2 69 mmHg (85-104) L 12/15/18 16:30 ABG O2 Saturation 93 % (95-98) L 12/15/18 16:30 PT/INR, D-dimer PT 12.3 Seconds (9.4-12.1) H 12/14/18 21:20 - Impressions Impressions Liver Ultrasound 12/15/18 10:00 IMPRESSION: 1. Cholelithiasis with borderline gallbladder wall thickening. However sonographic Miller's sign is negative. If there is still concern for acute cholecystitis, a HIDA scan can be performed for further evaluation. 2. Increased echogenicity of the liver is compatible with steatosis. D/ / Mingo Murillo MD / Mingo Murillo MD Interpreting Provider: Mingo Murillo MD Consult Discharge Plan - Plan Referrals: Maisha Ruth, [employer] DES[employer] [Primary Care Provider] - 12/24/18 1:20 pm
[2018-12-16] MEDS ORDERED: 0.9 % Sodium Chloride 1,000 ML ONE (10:22)
[2018-12-16] MEDS: Ipratropium/Albuterol Neb 3 ML IH SCH ×5 (11:20→22:11)
--- NOTE | 2018-12-16 11:36 | Cardiology Progress Note ---
Date of Encounter: 12/16/18 Time of Encounter: 11:34 Assessment and Plan (1) CAD in [place] artery Current Visit: Yes Status: Acute [place] CAD, chronically occluded LAD. Ipsilateral collaterals noted on previous cardiac catheterization. LVEF preserved. Minimal troponin elevation noted, flat/adynamic. Suspect this is related to respiratory insufficiency. Presentation is not consistent with ACS. Agree with aspirin and statin therapy. Given shortness of breath, reasonable to avoid beta blockers for now. Consider low-dose calcium channel ottoniel as blood pressure tolerates, for example diltiazem 30 mg every 8 hours. No further inpatient cardiology testing appears to be necessary. Cardiology will sign off. Call with any questions or concerns. (2) Pre-operative cardiovascular examination Current Visit: Yes Status: Acute Risk stratification requested prior to cholecystectomy. 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 Otherwise, non-obstructive CAD. ECG upon presentation unchanged. Troponin adynamic, mild elevated. Presentation is not consistent with ACS. Given multiple co-morbidities and known ELECTROMECHANICAL TECHNICIAN of pLAD, patient is considered at least moderate to high risk surgical candidate from CV standpoint. Discussion w patient/family: The assessment and plan as outlined above was discussed with the patient and/or family members who expressed understanding and agreement. All questions were answered. Thank you for involving us in the care of your patient. Please call with any questions. Subjective Principal diagnosis: Pre-op Interval history: Overall, patient states her condition is unchanged from yesterday. Baseline shortness of breath continues. No chest pain reported. TTE resulted, LVEF preserved. Objective Vital Signs, Last 4 Hours Temp Pulse Resp BP Pulse Ox 12/16/18 11:31 98.4 F 117 20 95/76 95 12/16/18 11:20 20 96 12/16/18 10:30 111 20 105/82 96 12/16/18 08:37 98 12/16/18 08:34 97 20 93 12/16/18 08:32 92 12/16/18 07:50 98.7 F 99 19 107/79 100 12/16/18 07:45 16 89/56 94 General: Conversant, No Apparent Distress HEENT: Atraumatic, Normocephaly, Mucus Membranes Moist Neck: No JVD Cardiac: Reg Rate and Rhythm, Normal S1 and S2, No Murmur, Other (Tachycardic) Lungs: Other (Tachypnea. Shallow.) Neuro: Alert and responsive, No focal deficits noted Abdomen: Soft, Non-Tender Skin: No rashes noted on visualized skin Musculoskeletal: No Chest Wall Tenderness Extremities: No Clubbing, No Cyanosis, No Edema Results 12/16/18 03:30 12/16/18 03:30 Lab Results 12/15/18 12/16/18 12/16/18 15:03 03:30 03:30 WBC 5.5 Hgb 13.2 Hct 39.8 Plt Count 156 Sodium 135 L Potassium 3.8 Chloride 105 Carbon Dioxide 27 BUN 10 Creatinine 0.50 L Glucose 140 H Calcium 8.4 L TSH 0.310 L - Imaging and Cardiology Echo: report reviewed Cardiac cath: report reviewed Consult Discharge Plan - Plan Referrals: Maisha Ruth CNP [Primary Care Provider] - 12/24/18 1:20 pm
[2018-12-16] MEDS: 0.9 % Sodium Chloride 1,000 ML IVC SCH ×3 (12:56→23:03)
[2018-12-16] MEDS: clonazePAM 1 MG TABLET PO PRN (15:00)
--- NOTE | 2018-12-16 15:41 | Event Note ---
Date of Encounter: 12/16/18 Time of Encounter: 15:34 Rapid response was called around at 3:11. Patient was found to be in respiratory distress by the nurse. On my evaluation patient was nonresponsive and cyanotic. Patient's saturation were in 70s, Hr 120s and BP in 100s/60s. Patient was ventilated with ambo bag to bring saturation in 90s. Patient was nonresponsive after her saturation improved with ambo bag. Patient was not stable enough to be put on BiPAP. Decision was made to intubate the patient. Patient was getting IV fluids this morning for hypotension as well as some component of COPD exacerbation with bilateral rhonchi. IV fluids were decreased this morning given her worsening respirations this morning and chest x-ray was pending. She only had trace peripheral edema. Sorensen catheter was pending placement for urine output monitoring. Previously with adequate urine output. Patient was intubated successfully after giving 1 mg Ativan, 5 mg Versed and 20 of etomidate. Patient was subsequently transferred to ICU for further care. Discussed with Dr. Villalba.
[2018-12-16] MEDS ORDERED: *HR* FentaNYL (PF) 100 MCG/2 ML VIAL ONE (15:48)
[2018-12-16] MEDS ORDERED: *HR* FentaNYL (PF) 100 MCG/2 ML VIAL IVP ONE (15:56)
[2018-12-16] MEDS ORDERED: Artificial Tears SOLN 15 ML BOTTLE BOTH EYES PRN (15:57)
[2018-12-16] MEDS ORDERED: Cefepime HCl 1,000 MG in Water for inj. (sterile) 20 ML 10 ML IVP SCH (16:12)
[2018-12-16] MEDS ORDERED: Hydrocortisone Sodium Succ 100 MG/2 ML VIAL IVP SCH (16:12)
--- NOTE | 2018-12-16 16:13 | Pulmonology Progress Note ---
<Tereza Villalba S - Last Filed: 12/16/18 19:57> Date of Encounter: 12/16/18 Assessment and Plan (1) Cholelithiasis Current Visit: Yes Status: Acute Qualifiers: Cholelithiasis location: gallbladder Qualified Code(s): K80.00 - Calculus of gallbladder with acute cholecystitis without obstruction (2) Hypotension Current Visit: Yes Status: Acute Qualifiers: Hypotension type: other hypotension type Qualified Code(s): I95.89 - Other hypotension (3) Adrenal insufficiency Current Visit: Yes Status: Acute Objective PUL Vital signs: Last Vital Signs Temp 98.2 F 12/16/18 19:00 Pulse 98 12/16/18 19:00 Resp 18 12/16/18 19:00 BP 105/69 12/16/18 19:00 Pulse Ox 98 12/16/18 19:00 Ventilator Settings Ventilator Settings: Ventilator Settings, Last 8 Hours Ventilator Tidal Volume 450 Setting Ventilator Tidal Volume 450 Setting Ventilator Tidal Volume 450 Setting Ventilator Tidal Volume 450 Setting Ventilator Tidal Volume 450 Setting Ventilator Tidal Volume 500 Setting Ventilator Respiratory Rate 18 Setting Ventilator Respiratory Rate 16 Setting Ventilator Respiratory Rate 18 Setting Ventilator Respiratory Rate 18 Setting Ventilator Respiratory Rate 18 Setting Ventilator Respiratory Rate 16 Setting Actual Respiratory Rate 18 Actual Respiratory Rate 18 Actual Respiratory Rate 18 Actual Respiratory Rate 18 Actual Respiratory Rate 22 Positive End Expiratory 5 Pressure Positive End Expiratory 5 Pressure Positive End Expiratory 5 Pressure Positive End Expiratory 5 Pressure Positive End Expiratory 5 Pressure Positive End Expiratory 5 Pressure Peak Inspiratory Airway 33 Pressure Peak Inspiratory Airway 33 Pressure Peak Inspiratory Airway 35 Pressure Peak Inspiratory Airway 55 Pressure Peak Inspiratory Airway 44 Pressure Results - Laboratory Findings CBC and BMP: 12/16/18 03:30 12/16/18 03:30 ABG ABG pH 7.29 pH Units (7.32-7.45) L 12/16/18 18:52 ABG pCO2 64 mmHg (35-45) H 12/16/18 18:52 ABG pO2 535 mmHg (85-104) H 12/16/18 18:52 ABG O2 Saturation 100 % (95-98) H 12/16/18 18:52 PT/INR, D-dimer PT 12.1 Seconds (9.4-12.1) 12/16/18 16:09 Abnormal lab findings: Abnormal lab results MPV 9.3 fL (9.4-12.4) L 12/16/18 03:30 Lymphocytes # 0.5 K/mcL (0.6-4.6) L 12/16/18 03:30 APTT 45.7 Seconds (26.0-36.0) H 12/14/18 21:20 ABG pH 7.29 pH Units (7.32-7.45) L 12/16/18 18:52 ABG pCO2 64 mmHg (35-45) H 12/16/18 18:52 ABG pO2 535 mmHg (85-104) H 12/16/18 18:52 ABG HCO3 31 mEq/L (21-27) H 12/16/18 18:52 ABG Total CO2 33 mEq/L (20-26) H 12/16/18 18:52 ABG O2 Saturation 100 % (95-98) H 12/16/18 18:52 Sodium 135 mEq/L (136-145) L 12/16/18 03:30 Creatinine 0.50 mg/dL (0.60-1.20) L 12/16/18 03:30 Glucose 140 mg/dL (70-105) H 12/16/18 03:30 POC Glucose 135 mg/dL (70-99) H 12/16/18 18:36 Calcium 8.4 mg/dL (8.6-10.3) L 12/16/18 03:30 Magnesium 1.5 mg/dL (1.6-2.6) L 12/15/18 03:32 Troponin I 0.07 ng/mL (< 0.04) H* 12/15/18 03:32 B-Natriuretic Peptide 631 pg/mL (Less than 100) H 12/16/18 18:55 Serum Total Protein 4.8 g/dL (6.4-8.9) L 12/15/18 03:32 Albumin 2.9 g/dL (3.5-5.7) L 12/15/18 03:32 Globulin 1.9 g/dL (2.4-3.5) L 12/15/18 03:32 TSH 0.310 mcIU/mL (0.340-5.600) L 12/15/18 15:03 - Microbiology Findings Microbiology Findings: Microbiology, Last 48 Hours 12/15/18 15:00 Blood Culture - Preliminary Peripheral Venipuncture Culture is incubating and being continuously monitored for growth. Final report to follow. 12/15/18 15:03 Blood Culture - Preliminary Peripheral Venipuncture Culture is incubating and being continuously monitored for growth. Final report to follow. - Clinical Findings Intake & Output: Intake & Output 12/16/18 12/16/18 12/16/18 07:59 15:59 23:59 Intake Total 1330 / 1330 10 / 10 Output Total 400 / 400 425 / 425 140 / 140 Balance -400 / -400 905 / 905 -130 / -130 Weight 84 kg Consult Discharge Plan - Plan Referrals: Maisha Ruth, APPLICATION COORDINATOR [Primary Care Provider] - 12/24/18 1:20 pm - Attending Attestation I saw and evaluated this patient and my medical decision-making was reviewed with the Resident Physician. I agree with the documented findings, disposition and treatment plan as described except to the extent set forth below. We independently had [id number] contact with the patient I spent 50 minutes of Critical Care time with this patient. It involved decision making of high complexity to assess, manipulate, and support vital organ system failure and/or to prevent further life threatening deterioration of the patient's condition. The time involved in the performance of separately reportable procedures was not counted toward critical care time. Patient seen and examined at bedside Labs, radiology, chart personally reviewed. Management was reviewed during multidisciplinary critical care rounds. [employer] TR[employer]IVER: Patient has baseline anxiety disorder on chronic benzodiazepine patient now was intubated note to give sedation with opioids and benzodiazepine. As patient has chronic benzodiazepine dependence patient was altered developed acute on chronic hypoxic hypercarbic respiratory failure patient was intubated for that reason well I was doing in the central line patient was awake completely following commands I doubt she has central nervous system issue like stroke will closely follow with neuro checks Pulm: Patient is hypoxic and hypercarbic respiratory failure on this the tidal volume and the ventilator settings to have acceptable oxygenation and ventilation. The worsening VQ mismatch is multifactorial secondary to COPD exacerbation acute on chronic diastolic heart failure complicated by fluid resuscitation as patient presented with hypotension. Right worsening infiltrates the side of her Squamous cell ca of lung will do Bronchoscopy airway exam as patient is waiting for chemotherapy for her lung cancer. Cards: He presented with hypotension echo showed diastolic dysfunction with normal ejection fraction this hypertension most likely due to adrenal insufficiency patient blood pressure responded well to IV hydrocortisone FEN-GI: Patient is NPO , IV PPI Renal: Labs and output reviewed ID: Possible worsening right sided pneumonia to cover with broad spectrum antibiotics Heme/Onc: Patient has recently diagnosed squamous cell ca waiting to start Chemotherapy Endo: Patient has adrenal sufficiency to continue Hydrocortisone 100mg IV 8hrly Integ/MSK: Skin Care per routine ICU Nursing Protocol to prevent ulcers. Lines: All lines examined without evidence of infection : Dispo: Critically ill CODE:Full Code <Kwan Scott - Last Filed: 12/16/18 22:02> Date of Encounter: 12/16/18 Time of Encounter: 09:30 Assessment and Plan (1) Acute and chronic respiratory failure with hypoxia Current Visit: Yes Status: Acute -Likely multifactorial given her history of COPD and CHF. -Patient was dyspneic this morning showing signs of COPD exacerbation and was started on DuoNeb so along with Symbicort. -Chest x-ray this morning showed signs of increased air space opacity in the right upper lobe suspicious for pneumonia. - ABG showed pH 7.29, pCO2: 64, HCO3: 31. -Currently intubated with FiO2: 00%, PEEP: 5. DuoNeb every 2 hours Scheduled (2) Hypotension Current Visit: Yes Status: Acute -Patient presented to the hospital with hypotension likely due to adrenal insufficiency given low random cortisol (4.9) -She is a status post volume resuscitation with 7 L positive. Most recent blood pressure is 103/74. -Currently on stress dose steroids and PPI. Central venous catheter and placement for a pressor support in case patient's map falls below below 65. -Currently holding off on more of fluids so because of concerns for pneumonia and respiratory distress. Qualifiers: Hypotension type: other hypotension type Qualified Code(s): I95.89 - Other hypotension (3) COPD (chronic obstructive pulmonary disease) Current Visit: No Status: Chronic -Patient has a history of COPD she is on budesonide at home COPD control.. -Patient has never COPD exacerbation until this morning when she was dyspneic with concerns for COPD exacerbation. -Currently she's on DuoNeb's every 2 hours scheduled, patient is also on cefepime, vancomycin and Flagyl. -Currently on the ventilator with PEEP: 5, FiO2: 100% Qualifiers: COPD type: unspecified COPD Qualified Code(s): J44.9 - Chronic obstructive pulmonary disease, unspecified (4) CHF (congestive heart failure) Current Visit: Yes Status: Acute -Patient with a history of congestive heart failure. -During her last admission, transthoracic echocardiogram revealed an ejection fraction of 60% with hypokinesis in the mid anterioseptum and apical septum with moderate left ventricular diastolic dysfunction. -Monitor Is/Os. BNP pending . Cumulative Is/Os: [id number]. - Currently holding off on her own 40 mg Lasix line to hypotension. 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 Patient follows with Dr. Diop in [place] [facility]. Patient is scheduled to get a port placement scheduled for chemotherapy. -Patient to chest x-ray showed a right hilar mass and nodules similar to her prior chest x-ray -Oncology has been consulted. Qualifiers: Laterality: right Qualified Code(s): C78.01 - Secondary malignant neoplasm of right lung (6) Adrenal insufficiency Current Visit: Yes Status: Acute -PatentAssessment signs and symptoms of adrenal insufficiency. Patient's random cortisol yesterday was 4.9. -The patient is on hydrocortisone 100 mg IV every 8 hours (7) Pneumonia Current Visit: Yes Status: Acute - patient was dyspnic ths morning, currently intubated due to acute on chronic hypercarbic resp failure - most recent CXR showed increasing airspace opacity in the right upper lobe suspicious for pneumonia. Patient on Ventilator -currently on Vancomycin, flagyl and cefepime - continue to monitor (8) Cholelithiasis Current Visit: Yes Status: Acute -initial presenting finding of cholelithiasis. Patient is afebrile, no murphys sign, not jaundiced currently - surgery on board, no indications of any surgical intervention at the moment. Qualifiers: Cholelithiasis location: gallbladder Qualified Code(s): K80.00 - Calculus of gallbladder with acute cholecystitis without obstruction Subjective Principal diagnosis: Pre-op Interval history: Ms. Mace is a 62-year-old female past medical history of squamous cell lung cancer, COPD, diabetes presented from a [facility] with concerns for cholelithiasis and probably possible choledocholithiasis. At the [facility] patient was hypotensive with blood [id number], lactate 1.7. Here on the floor, patient was hyponatremic because of decreased PO intake secondary to her gallbladder etiology. Patient also had adynamic troponin which were downtrending as of yesterday. Patient has a history of COPD, does not use home oxygen and was not found to be in COPD exacerbation until this morning when patient got dyspneic, and was put on DuoNeb's and Symbicort. She has been hypotensive its possible adrenal insufficiency and was given a stress dose of steroids and PPIs. She also has a newly diagnosed metastatic lung carcinoma and the plan was to start chemotherapy tomorrow. However this morning or after his office call the patient was found liters. His distress. Nurse. With blood pressure 100/60s. She was found to be using her accessory muscles for breathing and was not found suitable unstable enough to report BiPAP. Owing to concern of flow fatigue of respiratory muscles patient was intubated. Objective PUL Vital signs: Last Vital Signs Temp 98.4 F 12/16/18 11:31 Pulse 109 12/16/18 13:02 Resp 22 12/16/18 15:35 BP 81/48 12/16/18 13:02 Pulse Ox 96 12/16/18 15:35 Gen.: Currently intibated HEENT: oropharynx clear, Normocephalic, atraumatic, MMM Neck: supple, no JVD, no lymphadenopathy, no carotid bruit. Cardiac: no murmur, +S1/S2, No BLE edema, PMI non-displaced Pulmonary: b/l wheezes, rales or rhonchi, equal chest expansion Abdomen: soft, nontender, BS noted, no guarding, mildly distended. No organomegaly, no pulsatile masses, Skin: warm and dry, no visible lesions. Feels warm, clammy, no rashes, no lesions, no erythema MSK: trace pedal edema, ROM not assessed. no joint swelling noted, gait not assessed while in bed. Non tender calf or clubbing, no cyanosis/clubbing/ or edema . Ventilator Settings Ventilator Settings: Ventilator Settings, Last 8 Hours Ventilator Tidal Volume 450 Setting Ventilator Tidal Volume 500 Setting Ventilator Respiratory Rate 18 Setting Ventilator Respiratory Rate 16 Setting Actual Respiratory Rate 18 Actual Respiratory Rate 22 Positive End Expiratory 5 Pressure Positive End Expiratory 5 Pressure Peak Inspiratory Airway 55 Pressure Peak Inspiratory Airway 44 Pressure Results - Laboratory Findings CBC and BMP: 12/16/18 03:30 12/16/18 03:30 ABG ABG pH 7.35 pH Units (7.32-7.45) 12/15/18 16:30 ABG pCO2 50 mmHg (35-45) H 12/15/18 16:30 ABG pO2 69 mmHg (85-104) L 12/15/18 16:30 ABG O2 Saturation 93 % (95-98) L 12/15/18 16:30 PT/INR, D-dimer PT 12.3 Seconds (9.4-12.1) H 12/14/18 21:20 Abnormal lab findings: Abnormal lab results MPV 9.3 fL (9.4-12.4) L 12/16/18 03:30 Lymphocytes # 0.5 K/mcL (0.6-4.6) L 12/16/18 03:30 PT 12.3 Seconds (9.4-12.1) H 12/14/18 21:20 APTT 45.7 Seconds (26.0-36.0) H 12/14/18 21:20 ABG pCO2 50 mmHg (35-45) H 12/15/18 16:30 ABG pO2 69 mmHg (85-104) L 12/15/18 16:30 ABG HCO3 28 mEq/L (21-27) H 12/15/18 16:30 ABG Total CO2 30 mEq/L (20-26) H 12/15/18 16:30 ABG O2 Saturation 93 % (95-98) L 12/15/18 16:30 Sodium 135 mEq/L (136-145) L 12/16/18 03:30 Creatinine 0.50 mg/dL (0.60-1.20) L 12/16/18 03:30 Glucose 140 mg/dL (70-105) H 12/16/18 03:30 POC Glucose 146 mg/dL (70-99) H 12/16/18 15:52 Calcium 8.4 mg/dL (8.6-10.3) L 12/16/18 03:30 Magnesium 1.5 mg/dL (1.6-2.6) L 12/15/18 03:32 Troponin I 0.07 ng/mL (< 0.04) H* 12/15/18 03:32 Serum Total Protein 4.8 g/dL (6.4-8.9) L 12/15/18 03:32 Albumin 2.9 g/dL (3.5-5.7) L 12/15/18 03:32 Globulin 1.9 g/dL (2.4-3.5) L 12/15/18 03:32 TSH 0.310 mcIU/mL (0.340-5.600) L 12/15/18 15:03 - Microbiology Findings Microbiology Findings: Microbiology, Last 48 Hours 12/15/18 15:00 Blood Culture - Preliminary Peripheral Venipuncture Culture is incubating and being continuously monitor ed for growth. Final report to follow. 12/15/18 15:03 Blood Culture - Preliminary Peripheral Venipuncture Culture is incubating and being continuously monitored for growth. Final report to follow. - Clinical Findings Intake & Output: Intake & Output 12/16/18 12/16/18 12/16/18 07:59 15:59 23:59 Intake Total 1320 / 1320 Output Total 400 / 400 425 / 425 Balance -400 / -400 895 / 895 Weight 84 kg
[2018-12-16] MEDS: FentaNYL (PF) 1,000 MCG in 0.9 % Sodium Chloride 80 ML IVC SCH ×2 (16:27→23:53)
[2018-12-16 16:33] LABS: INR 1.1; Prothrombin Time 12.1 Seconds (9.4-12.1)
[2018-12-16] MEDS ORDERED: Ipratropium/Albuterol Neb 3 ML IH SCH (16:45)
[2018-12-16] MEDS: Artificial Tears SOLN 15 ML BOTTLE BOTH EYES SCH ×3 (16:58→23:02)
--- NOTE | 2018-12-16 18:10 | Procedure Note ---
<Kwan Scott - Last Filed: 12/16/18 18:13> Date of procedure: 12/16/18 Pre-op diagnosis: hyotension Post-op diagnosis: same Procedure: Time out was performed, consent was obtained, the patient was placed in supine position and the area was prepped and draped in a sterile fashion. The area over the right IJ was anesthetized using 3cc's of 1% lidocaine. Using the sonosite, the IJ was identified, and a cook needle was used to cannulate the vein. Dark, non-pulsatile blood was seen. Using the Seldinger technique, a guidewire was passed through the needle and the needle was withdrawn. A small incision was made and a dilator sheath was then passed over the guidewire and then removed. The catheter was then placed as the guidewire was removed. The catheter was then sutured in place. All 3 ports had good return, and flushed with normal saline easily. The patient tolerated the procedure well. A post-procedure chest x-ray is pending. Surgeon: Kwan Scott Was there an assistant professor surgical technology present: Yes Solid Propellant Processor: Tereza Villalba Estimated blood loss (cc): 4 Specimen: none Pathology: none sent Condition: critical <Tereza Villalba - Last Filed: 12/16/18 19:41> Procedure: I was present during the entire procedure and I assisted the resident during the critical portion of the procedure.
[2018-12-16 18:57] LABS: ABG Base Excess 3 mEq/L (-2 to 3); ABG HCO3 31 mEq/L (21-27); ABG Oxygen Saturation 100 % (95-98); ABG PCO2 64 mmHg (35-45); ABG PH 7.29 pH Units (7.32-7.45); ABG PO2 535 mmHg (85-104); ABG TCO2 33 mEq/L (20-26); Blood Gas Modality ASSIST CONTROL; Blood Gas PEEP 5 cm H2O; Blood Gas Respiration Rate 18; Blood Gas VT 450 cc
[2018-12-16] MEDS: risperiDONE 1 MG TABLET PO SCH (19:52)
[2018-12-16] MEDS: Chlorhexidine Rinse 15 ML MOUTHWASH MM SCH (19:52)
[2018-12-16] MEDS: MetroNIDAZOLE 250 MG/50 ML 250 MG/50 ML BAG IVPB SCH (23:02)
[2018-12-16 23:14] LABS: Bilirubin,Urine Negative (Negative); Blood,Urine Large (Negative); Clarity,Urine Cloudy (Clear); Color,Urine Dark Yellow (Yellow); Glucose,Urine (UA) Normal (Normal); Ketones,Urine 15 mg/dL (Negative); Leukocyte Esterase,Urine Trace (Negative); Nitrite,Urine Negative (Negative); Protein,Urine 100 mg/dL (Neg-Trace); Urobilinogen,Urine Normal (Normal)
[2018-12-16 23:22] LABS: Bacteria,Urine None Seen per hpf (None-Few); RBC,Urine TNTC per hpf (0-3); Squamous Epithelial Cell,Urine Many per lpf (None-Few)
[2018-12-17] MEDS: Ipratropium/Albuterol Neb 3 ML IH SCH ×13 (00:03→23:17)
[2018-12-17 03:16] LABS: Hematocrit 34.7 % (35.3-44.9); Hemoglobin 11.7 g/dL (11.5-15.4); Immature Granulocytes % 0.5 % (0-4); Lymphocytes # 0.4 K/mcL (0.6-4.6); Mean Corpuscular HGB Conc 33.7 g/dL (31.6-35.5); Mean Corpuscular Hemoglobin 32.1 pg (28.0-33.3); Mean Corpuscular Volume 95.3 fL (83.0-100.0); Mean Platelet Volume 9.5 fL (9.4-12.4); Monocytes # 0.2 K/mcL (0.0-1.3); Neutrophils # 3.8 K/mcL (1.6-8.9); Platelet Count 170 K/mcL (140-400); Red Blood Count 3.64 M/mcL (3.82-4.97); Red Cell Distribution Width 11.9 % (11.5-14.5); Segmented Neutrophils % 85.5 %
[2018-12-17] MEDS: 0.9 % Sodium Chloride 1,000 ML IVC SCH (03:16)
[2018-12-17] MEDS: Artificial Tears SOLN 15 ML BOTTLE BOTH EYES SCH ×7 (03:19→23:15)
[2018-12-17 03:31] LABS: BUN/Creatinine Ratio 21 (6-26); Blood Urea Nitrogen 12 mg/dL (8-23); Calcium 8.9 mg/dL (8.6-10.3); Carbon Dioxide 27 mEq/L (23-29); Chloride 102 mEq/L (98-107); Glucose 175 mg/dL (70-105); Osmolality,Calculated 284 (280-300); Potassium 3.6 mEq/L (3.5-5.1); Sodium 135 mEq/L (136-145); eGFR For Non-African Americans > 60 (> 60)
[2018-12-17] MEDS: Insulin LISPRO 300 UNITS/3 ML VIAL SQ SCH ×4 (05:08→23:34)
[2018-12-17] MEDS: *HR* Heparin 5,000 UNIT/ML VIAL SQ SCH ×3 (05:09→23:14)
[2018-12-17 06:06] LABS: ABG Base Excess 4 mEq/L (-2 to 3); ABG HCO3 29 mEq/L (21-27); ABG Oxygen Saturation 67 % (95-98); ABG PCO2 44 mmHg (35-45); ABG PH 7.42 pH Units (7.32-7.45); ABG PO2 35 mmHg (85-104); ABG TCO2 30 mEq/L (20-26); Blood Gas Modality ASSIST CONTROL; Blood Gas PEEP 5 cm H2O; Blood Gas Respiration Rate 20; Blood Gas VT 450 cc
[2018-12-17 06:07] LABS: ABG Base Excess 4 mEq/L (-2 to 3); ABG HCO3 28 mEq/L (21-27); ABG Oxygen Saturation 91 % (95-98); ABG PCO2 43 mmHg (35-45); ABG PH 7.43 pH Units (7.32-7.45); ABG PO2 61 mmHg (85-104); ABG TCO2 30 mEq/L (20-26); Blood Gas Modality ASSIST CONTROL; Blood Gas PEEP 5 cm H2O; Blood Gas Respiration Rate 20; Blood Gas VT 450 cc
[2018-12-17] MEDS: FentaNYL (PF) 1,000 MCG in 0.9 % Sodium Chloride 80 ML IVC SCH ×3 (06:30→21:27)
[2018-12-17] MEDS: Budesonide/Formoterol 160/4.5 1 PUFF INH IH SCH ×2 (07:27→20:00)
[2018-12-17] MEDS ORDERED: Aminoglycoside Consult 1 EACH MC ONE (07:40)
[2018-12-17] MEDS: Cefepime HCl 1,000 MG in Water for inj. (sterile) 20 ML 10 ML IVP SCH ×3 (08:55→23:15)
--- NOTE | 2018-12-17 08:55 | Pulmonology Progress Note ---
<Kwan Scott - Last Filed: 12/17/18 22:25> Date of Encounter: 12/17/18 Time of Encounter: 09:00 Assessment and Plan (1) Acute and chronic respiratory failure with hypoxia Current Visit: Yes Status: Acute -Likely multifactorial given her history of COPD and CHF. -Patient was dyspneic yesterday, showing signs of COPD exacerbation and was started on DuoNeb so along with Symbicort. -Chest x-ray from yesterdayshowed signs of increased air space opacity in the right upper lobe suspicious for pneumonia. - ABG showed pH 7.43, pCO2: 43, HCO3: 28. -Currently intubated with FiO2: 40%, PEEP: 5, TV: 450. DuoNeb every 2 hours Scheduled. Until currently on flagyl and cefepime for anaerobes and atypical coverage. Vancomycin has been discontinued because of MRSA swab was negative (2) Hypotension Current Visit: Yes Status: Acute -Patient presented to the hospital with hypotension likely due to adrenal insufficiency given low random cortisol (4.9) -She is a status post volume resuscitation with 7 L positive yesterday. -Currently on stress dose steroids and PPI. Central venous catheter and placement for a pressor support in case patient's map falls below below 65. -Currently holding off on more of fluids so because of concerns for pneumonia and respiratory distress. Qualifiers: Hypotension type: other hypotension type Qualified Code(s): I95.89 - Other hypotension (3) COPD (chronic obstructive pulmonary disease) Current Visit: No Status: Chronic -Patient has a history of COPD she is on budesonide at home COPD control.. -Patient has never COPD exacerbation until this morning when she was dyspneic with concerns for COPD exacerbation. -Currently she's on DuoNeb's every 2 hours scheduled, patient is also on cefepime and Flagyl. -Currently on the ventilator with PEEP: 5, FiO2: 40% Qualifiers: COPD type: unspecified COPD Qualified Code(s): J44.9 - Chronic obstructive pulmonary disease, unspecified (4) CHF (congestive heart failure) Current Visit: Yes Status: Acute -Patient with a history of congestive heart failure. -Her most recent echocardiogram revealed an ejection fraction of 60% with mild left ventricular diastolic dysfunction with no evidence of pulmonary hypertension .. -Monitor Is/Os. BNP 631 . Cumulative Is/Os: 9683/4061. 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 Patient follows with Dr. Diop in [place] oncology. Patient is scheduled to get a port placement scheduled for chemotherapy. -Patient to chest x-ray showed a right hilar mass and nodules similar to her prior chest x-ray -Oncology has been consulted. Qualifiers: Laterality: right Qualified Code(s): C78.01 - Secondary malignant neoplasm of right lung (6) Adrenal insufficiency Current Visit: Yes Status: Acute -PatentAssessment signs and symptoms of adrenal insufficiency. Patient's random cortisol yesterday was 4.9. -The patient is on hydrocortisone 100 mg IV every 8 hours (7) Pneumonia Current Visit: Yes Status: Acute - patient was dyspnic ths morning, currently intubated due to acute on chronic hypercarbic resp failure - most recent CXR showed increasing airspace opacity in the right upper lobe suspicious for pneumonia. Patient on Ventilator -currently on flagyl and cefepime, chest CT pending. - continue to monitor Qualifiers: Qualified Code(s): J18.9 - Pneumonia, unspecified organism (8) Cholelithiasis Current Visit: Yes Status: Acute -initial presenting finding of cholelithiasis. Patient is afebrile, no murphys sign, not jaundiced currently -Patient CT showed cholelithiasis with borderline gallbladder wall thickening. - surgery on board, no indications of any surgical intervention at the moment until patient is hemodynamically stable. Qualifiers: Cholelithiasis location: gallbladder Qualified Code(s): K80.00 - Calculus of gallbladder with acute cholecystitis without obstruction Subjective Principal diagnosis: Pre-op Interval history: 12/17 No acute events overnight. Patient continues to be vancomycin , cefepime and agile with concerns for pneumonia. Of note patient's most recent chest x-ray showed right upper lobe showed increasing airspace opacity in the right upper lobe suspicious for pneumonia. In conjunction with small bilateral pleural effusion. Patient's blood pressure has been between 90-100s systolic this morning. She has not required the need for any pressors. Her BNP was elevated to 631. Given her history of for diastolic dysfunction along with increasing elevated BNP there is no indication for fluid resuscitation at the moment. Patient continues to get DuoNeb's cutis every 2 hours for her COPD. On physical exam today she was wheezing bilaterally but no decreased breath sounds. Patient is scheduled for a chest CT today. 12/16 Ms. Mace is a 62-year-old female past medical history of squamous cell lung cancer, COPD, diabetes presented from a [facility] with concerns for cholelithiasis and probably possible choledocholithiasis. At the [facility] patient was hypotensive with blood vsliyhmk53/60, lactate 1.7. Here on the floor, patient was hyponatremic because of decreased PO intake secondary to her gallbladder etiology. Patient also had adynamic troponin which were downtrending as of yesterday. Patient has a history of COPD, does not use home oxygen and was not found to be in COPD exacerbation until this morning when patient got dyspneic, and was put on DuoNeb's and Symbicort. She has been hypotensive its possible adrenal insufficiency and was given a stress dose of steroids and PPIs. She also has a newly diagnosed metastatic lung carcinoma and the plan was to start chemotherapy tomorrow. However this morning or after his office call the patient was found liters. His distress. Nurse. With blood pressure 100/60s. She was found to be using her accessory muscles for breathing and was not found suitable unstable enough to report BiPAP. Owing to concern of flow fatigue of respiratory muscles patient was intubated. Objective PUL Vital signs: Last Vital Signs Temp 98.1 F 12/17/18 04:00 Pulse 103 12/17/18 08:00 Resp 21 12/17/18 08:00 BP 81/60 12/17/18 08:41 Pulse Ox 97 12/17/18 08:00 Gen.: Currently intubated HEENT: oropharynx clear, Normocephalic, atraumatic, MMM, central line in place on the right side Neck: supple, no JVD, no lymphadenopathy, no carotid bruit. Cardiac: no murmur, +S1/S2, No BLE edema, PMI non-displaced Pulmonary: b/l wheezes, rales or rhonchi, equal chest expansion Abdomen: soft, nontender, BS noted, no guarding, mildly distended. No organomegaly, no pulsatile masses, Skin: warm and dry, no visible lesions. Feels warm, clammy, no rashes, no lesions, no erythema MSK: trace pedal edema, ROM not assessed. no joint swelling noted, gait not assessed while in bed. Non tender calf or clubbing, no cyanosis/clubbing/ or edema Ventilator Settings Ventilator Settings: Ventilator Settings, Last 8 Hours Ventilator Tidal Volume 450 Setting Ventilator Tidal Volume 450 Setting Ventilator Tidal Volume 450 Setting Ventilator Tidal Volume 450 Setting Ventilator Tidal Volume 450 Setting Ventilator Tidal Volume 450 Setting Ventilator Tidal Volume 450 Setting Ventilator Tidal Volume 450 Setting Ventilator Tidal Volume 450 Setting Ventilator Tidal Volume 450 Setting Ventilator Tidal Volume 450 Setting Ventilator Tidal Volume 450 Setting Ventilator Respiratory Rate 18 Setting Ventilator Respiratory Rate 20 Setting Ventilator Respiratory Rate 20 Setting Ventilator Respiratory Rate 20 Setting Ventilator Respiratory Rate 20 Setting Ventilator Respiratory Rate 20 Setting Ventilator Respiratory Rate 20 Setting Ventilator Respiratory Rate 20 Setting Ventilator Respiratory Rate 20 Setting Ventilator Respiratory Rate 20 Setting Ventilator Respiratory Rate 20 Setting Ventilator Respiratory Rate 20 Setting Actual Respiratory Rate 27 Actual Respiratory Rate 20 Actual Respiratory Rate 20 Actual Respiratory Rate 20 Actual Respiratory Rate 20 Actual Respiratory Rate 20 Actual Respiratory Rate 20 Actual Respiratory Rate 20 Actual Respiratory Rate 20 Actual Respiratory Rate 20 Actual Respiratory Rate 20 Positive End Expiratory 5 Pressure Positive End Expiratory 5 Pressure Positive End Expiratory 5 Pressure Positive End Expiratory 5 Pressure Positive End Expiratory 5 Pressure Positive End Expiratory 5 Pressure Positive End Expiratory 5 Pressure Positive End Expiratory 5 Pressure Positive End Expiratory 5 Pressure Positive End Expiratory 5 Pressure Positive End Expiratory 5 Pressure Positive End Expiratory 5 Pressure Peak Inspiratory Airway 43 Pressure Peak Inspiratory Airway 40 Pressure Peak Inspiratory Airway 32 Pressure Peak Inspiratory Airway 34 Pressure Peak Inspiratory Airway 38 Pressure Peak Inspiratory Airway 38 Pressure Peak Inspiratory Airway 33 Pressure Peak Inspiratory Airway 33 Pressure Peak Inspiratory Airway 38 Pressure Peak Inspiratory Airway 36 Pressure Peak Inspiratory Airway 36 Pressure Results - Laboratory Findings CBC and BMP: 12/17/18 03:00 12/17/18 03:00 ABG ABG pH 7.43 pH Units (7.32-7.45) 12/17/18 05:16 ABG pCO2 43 mmHg (35-45) 12/17/18 05:16 ABG pO2 61 mmHg (85-104) L 12/17/18 05:16 ABG O2 Saturation 91 % (95-98) L 12/17/18 05:16 PT/INR, D-dimer PT 12.1 Seconds (9.4-12.1) 12/16/18 16:09 Abnormal lab findings: Abnormal lab results RBC 3.64 M/mcL (3.82-4.97) L 12/17/18 03:00 Hct 34.7 % (35.3-44.9) L 12/17/18 03:00 Lymphocytes # 0.4 K/mcL (0.6-4.6) L 12/17/18 03:00 APTT 45.7 Seconds (26.0-36.0) H 12/14/18 21:20 ABG pO2 61 mmHg (85-104) L 12/17/18 05:16 ABG HCO3 28 mEq/L (21-27) H 12/17/18 05:16 ABG Total CO2 30 mEq/L (20-26) H 12/17/18 05:16 ABG O2 Saturation 91 % (95-98) L 12/17/18 05:16 ABG Base Excess 4 mEq/L (-2 to 3) H 12/17/18 05:16 Sodium 135 mEq/L (136-145) L 12/17/18 03:00 Creatinine 0.58 mg/dL (0.60-1.20) L 12/17/18 03:00 Glucose 175 mg/dL (70-105) H 12/17/18 03:00 POC Glucose 152 mg/dL (70-99) H 12/17/18 05:04 Magnesium 1.5 mg/dL (1.6-2.6) L 12/15/18 03:32 Troponin I 0.07 ng/mL (< 0.04) H* 12/15/18 03:32 B-Natriuretic Peptide 631 pg/mL (Less than 100) H 12/16/18 18:55 Serum Total Protein 4.8 g/dL (6.4-8.9) L 12/15/18 03:32 Albumin 2.9 g/dL (3.5-5.7) L 12/15/18 03:32 Globulin 1.9 g/dL (2.4-3.5) L 12/15/18 03:32 TSH 0.310 mcIU/mL (0.340-5.600) L 12/15/18 15:03 Urine Clarity Cloudy (Clear) A 12/16/18 21:30 Urine Protein 100 mg/dL (Neg-Trace) H 12/16/18 21:30 Urine Ketones 15 mg/dL (Negative) H 12/16/18 21:30 Urine Blood Large (Negative) H 12/16/18 21:30 Ur Leukocyte Esterase Trace (Negative) H 12/16/18 21:30 Urine Microscopic RBC TNTC per hpf (0-3) H 12/16/18 21:30 Urine Microscopic WBC 5-15 per hpf (0-3) H 12/16/18 21:30 Ur Squamous Epith Cells Many per lpf (None-Few) H 12/16/18 21:30 - Microbiology Findings Microbiology Findings: Microbiology, Last 48 Hours 12/15/18 15:00 Blood Culture - Preliminary Peripheral Venipuncture Culture is incubating and being continuously monitored for growth. Final report to follow. 12/15/18 15:03 Blood Culture - Preliminary Peripheral Venipuncture Culture is incubating and being continuously monitored for growth. Final report to follow. - Clinical Findings Intake & Output: Intake & Output 12/16/18 12/17/18 12/17/18 23:59 07:59 15:59 Intake Total 470 / 470 250 / 250 Output Total 265 / 265 260 / 260 Balance 205 / 205 -10 / -10 Weight 88.1 kg Consult Discharge Plan - Plan Referrals: Maisha Ruth CNP [Primary Care Provider] - 12/24/18 1:20 pm <Tereza Villalba - Last Filed: 12/17/18 22:43> Date of Encounter: 12/17/18 Assessment and Plan (1) Cholelithiasis Current Visit: Yes Status: Acute Qualifiers: Cholelithiasis location: gallbladder Qualified Code(s): K80.00 - Calculus of gallbladder with acute cholecystitis without obstruction (2) Hypotension Current Visit: Yes Status: Acute Qualifiers: Hypotension type: other hypotension type Qualified Code(s): I95.89 - Other hypotension (3) Adrenal insufficiency Current Visit: Yes Status: Acute Objective PUL Vital signs: Last Vital Signs Temp 98.7 F 12/17/18 21:00 Pulse 85 12/17/18 22:00 Resp 20 12/17/18 22:13 BP 105/68 12/17/18 22:00 Pulse Ox 93 12/17/18 22:13 Ventilator Settings Ventilator Settings: Ventilator Settings, Last 8 Hours Ventilator Tidal Volume 450 Setting Ventilator Tidal Volume 450 Setting Ventilator Tidal Volume 450 Setting Ventilator Tidal Volume 450 Setting Ventilator Tidal Volume 450 Setting Ventilator Tidal Volume 450 Setting Ventilator Tidal Volume 450 Setting Ventilator Tidal Volume 450 Setting Ventilator Tidal Volume 450 Setting Ventilator Tidal Volume 450 Setting Ventilator Tidal Volume 450 Setting Ventilator Respiratory Rate 20 Setting Ventilator Respiratory Rate 20 Setting Ventilator Respiratory Rate 20 Setting Ventilator Respiratory Rate 20 Setting Ventilator Respiratory Rate 20 Setting Ventilator Respiratory Rate 20 Setting Ventilator Respiratory Rate 18 Setting Ventilator Respiratory Rate 18 Setting Ventilator Respiratory Rate 18 Setting Ventilator Respiratory Rate 18 Setting Ventilator Respiratory Rate 18 Setting Actual Respiratory Rate 20 Actual Respiratory Rate 20 Actual Respiratory Rate 20 Actual Respiratory Rate 20 Actual Respiratory Rate 20 Actual Respiratory Rate 20 Actual Respiratory Rate 20 Actual Respiratory Rate 20 Actual Respiratory Rate 20 Actual Respiratory Rate 20 Actual Respiratory Rate 20 Positive End Expiratory 5 Pressure Positive End Expiratory 5 Pressure Positive End Expiratory 5 Pressure Positive End Expiratory 5 Pressure Positive End Expiratory 5 Pressure Positive End Expiratory 5 Pressure Positive End Expiratory 5 Pressure Positive End Expiratory 5 Pressure Positive End Expiratory 5 Pressure Positive End Expiratory 5 Pressure Positive End Expiratory 5 Pressure Peak Inspiratory Airway 40 Pressure Peak Inspiratory Airway 37 Pressure Peak Inspiratory Airway 37 Pressure Peak Inspiratory Airway 32 Pressure Peak Inspiratory Airway 38 Pressure Peak Inspiratory Airway 37 Pressure Peak Inspiratory Airway 40 Pressure Peak Inspiratory Airway 39 Pressure Peak Inspiratory Airway 38 Pressure Peak Inspiratory Airway 43 Pressure Peak Inspiratory Airway 43 Pressure Results - Laboratory Findings CBC and BMP: 12/17/18 03:00 12/17/18 03:00 ABG ABG pH 7.43 pH Units (7.32-7.45) 12/17/18 05:16 ABG pCO2 43 mmHg (35-45) 12/17/18 05:16 ABG pO2 61 mmHg (85-104) L 12/17/18 05:16 ABG O2 Saturation 91 % (95-98) L 12/17/18 05:16 PT/INR, D-dimer PT 12.1 Seconds (9.4-12.1) 12/16/18 16:09 Abnormal lab findings: Abnormal lab results RBC 3.64 M/mcL (3.82-4.97) L 12/17/18 03:00 Hct 34.7 % (35.3-44.9) L 12/17/18 03:00 Lymphocytes # 0.4 K/mcL (0.6-4.6) L 12/17/18 03:00 APTT 45.7 Seconds (26.0-36.0) H 12/14/18 21:20 ABG pO2 61 mmHg (85-104) L 12/17/18 05:16 ABG HCO3 28 mEq/L (21-27) H 12/17/18 05:16 ABG Total CO2 30 mEq/L (20-26) H 12/17/18 05:16 ABG O2 Saturation 91 % (95-98) L 12/17/18 05:16 ABG Base Excess 4 mEq/L (-2 to 3) H 12/17/18 05:16 Sodium 135 mEq/L (136-145) L 12/17/18 03:00 Creatinine 0.58 mg/dL (0.60-1.20) L 12/17/18 03:00 Glucose 175 mg/dL (70-105) H 12/17/18 03:00 POC Glucose 128 mg/dL (70-99) H 12/17/18 18:32 Magnesium 1.5 mg/dL (1.6-2.6) L 12/15/18 03:32 Troponin I 0.07 ng/mL (< 0.04) H* 12/15/18 03:32 B-Natriuretic Peptide 631 pg/mL (Less than 100) H 12/16/18 18:55 Serum Total Protein 4.8 g/dL (6.4-8.9) L 12/15/18 03:32 Albumin 2.9 g/dL (3.5-5.7) L 12/15/18 03:32 Globulin 1.9 g/dL (2.4-3.5) L 12/15/18 03:32 TSH 0.310 mcIU/mL (0.340-5.600) L 12/15/18 15:03 Urine Clarity Cloudy (Clear) A 12/16/18 21:30 Urine Protein 100 mg/dL (Neg-Trace) H 12/16/18 21:30 Urine Ketones 15 mg/dL (Negative) H 12/16/18 21:30 Urine Blood Large (Negative) H 12/16/18 21:30 Ur Leukocyte Esterase Trace (Negative) H 12/16/18 21:30 Urine Microscopic RBC TNTC per hpf (0-3) H 12/16/18 21:30 Urine Microscopic WBC 5-15 per hpf (0-3) H 12/16/18 21:30 Ur Squamous Epith Cells Many per lpf (None-Few) H 12/16/18 21:30 - Clinical Findings Intake & Output: Intake & Output 12/17/18 12/17/18 12/17/18 07:59 15:59 23:59 Intake Total 250 / 250 210 / 210 393 / 393 Output Total 260 / 260 2305 / 2305 100 / 100 Balance -10 / -10 -2094 / -2094 293 / 293 - Attending Attestation - Attending Attestation I saw and evaluated this patient and my medical decision-making was reviewed with the Resident Physician. I agree with the documented findings, disposition and treatment plan as described except to the extent set forth below. We ind ependently had [id number] contact with the patient I spent 40 minutes of Critical Care time with this patient. It involved decision making of high complexity to assess, manipulate, and support vital organ system failure and/or to prevent further life threatening deterioration of the patient's condition. The time involved in the performance of separately reportable procedures was not counted toward critical care time. Patient seen and examined at bedside Labs, radiology, chart personally reviewed. Management was reviewed during multidisciplinary critical care rounds. [employer]: Patient has baseline anxiety disorder on chronic benzodiazepine patient now was intubated note to give sedation with opioids and benzodiazepine. As patient has chronic benzodiazepine dependence patient was altered developed acute on chronic hypoxic hypercarbic respiratory failure patient was intubated for that reason well I was doing in the central line patient was awake completely following commands I doubt she has central nervous system issue like stroke will closely follow with neuro checks 12/17 Patient is intubated with minimal sedation patient is following commands in my exam Pulm: Patient is hypoxic and hypercarbic respiratory failure on this the tidal volume and the ventilator settings to have acceptable oxygenation and ventilation. The worsening VQ mismatch is multifactorial secondary to COPD exacerbation acute on chronic diastolic heart failure complicated by fluid resuscitation as patient presented with hypotension. Right worsening infiltrates the side of her Squamous cell ca of lung will do Bronchoscopy airway exam as patient is waiting for chemotherapy for her lung cancer. 12/17 Patient has acceptable oxygenation and ventialtion , i did the Bronchoscopy with airway exam i could not find the Right lower lobe fungating mass the Right upper lobe is completely occluded after that i did a CT scan which showed worsening RUL post obstructive collapse will discuss with for possible stenting or if she gets extubated she will need immediate radiotherapy Cards: He presented with hypotension echo showed diastolic dysfunction with normal ejection fraction this hypertension most likely due to adrenal insufficiency patient blood pressure responded well to IV hydrocortisone FEN-GI: Advance diet as tolerated , IV PPI Renal: Labs and output reviewed ID: Possible worsening right sided possible obstructive collapse to cover with broad spectrum antibiotics Heme/Onc: Patient has recently diagnosed squamous cell ca waiting to start Chemotherapy and radiotherapy Endo: Patient has adrenal sufficiency to continue Hydrocortisone 100mg IV 8hrly Integ/MSK: Skin Care per routine ICU Nursing Protocol to prevent ulcers. Lines: All lines examined without evidence of infection : Dispo: Critically ill CODE:Full Code
[2018-12-17] MEDS: Chlorhexidine Rinse 15 ML MOUTHWASH MM SCH ×2 (08:59→20:48)
[2018-12-17] MEDS: Hydrocortisone Sodium Succ 100 MG/2 ML VIAL IVP SCH ×3 (08:59→23:15)
[2018-12-17] MEDS: Pantoprazole 40 MG VIAL IVP SCH (09:01)
[2018-12-17] MEDS: MetroNIDAZOLE 250 MG/50 ML 250 MG/50 ML BAG IVPB SCH (09:15)
[2018-12-17] MEDS: Aspirin 81 MG TAB.CHEW PO SCH (09:22)
[2018-12-17] MEDS ORDERED: Furosemide 40 MG/4 ML VIAL IVP ONE (11:01)
[2018-12-17] MEDS: MetroNIDAZOLE 500 MG/100 ML 500 MG/100 ML BAG IVPB SCH ×2 (15:53→23:15)
--- NOTE | 2018-12-17 20:22 | Oncology Inp Consult Note ---
Date of Encounter: 12/16/18 Time of Encounter: 08:00 Assessment and Plan (1) Metastatic lung carcinoma Status: Acute Assessment and plan: BILATERAL LUNG NODULES PET positive s/p bx of AP window adenopathy, palliative chemo was planned. Admitted with ac abd pain suspicion of cholecystitis, seen by surgery with plan for possible intervent. She is intubated due to ac respiratory failure, possibly due to volume overload, lung mass/collpase and COPD. Mild hypotension after intubation. Diuresis after BP stabilizes. POssible bronch to evaluate for obstruction. MAy need palliative radiation prior to initiating chemotherapy. Discussed with ICU attending on plan of care. Qualifiers: Laterality: right Qualified Code(s): C78.01 - Secondary malignant neoplasm of right lung - Data of Consult Requesting Physician: Leann Gamboa MD Primary Care Provider: Maisha Ruth CNP - Consult Narrative Reason for consult: lung cancer, acute respiratory failure History of present illness: 63-year-old female with history of COPD, chronic ongoing tobacco abuse, HTN, hyperlipidemia, bipolar disorder, with hx pneumonia, who underwent CT scan of the chest in October 2018 that showed, right lower paratracheal lymphadenopathy ~3cm, right hilar adenopathy, right upper lung nodule or spiculated density measuring 1.7 cm and another scattered pulmonary nodules in the right side. Patient was seen by pulmonary, who did a bronchoscopy and biopsy of the right upper lobe endobronchial lesion which shows moderately differentiated squamous cell carcinoma, biopsy of AP window lymph node also consistent with metastatic carcinoma. She subsequently underwent a PET imaging study in October 2018 that shows bilateral PET positive nodules (stage IV) consistent with metastatic disease uptake in the hilum as well as in mediastinum. No evidence of distant metastatic disease from PET imaging. She was planned palliative chemo after MRI brain after MDT conference. Meanwhile patient was hospitalized with abd pain and with concern for cholelithiasis, dehydration (hypercalcemia) She received IVF and went into respiratory distress, BNP was elevated. She is intubated and oncology is seeing patient due to lung cancer with hilar adenoapthy. Past Med Surg Social Fam HX - Past Medical History Medical history: cancer, CHF (diastolic), COPD, coronary artery disease, diabetes, hyperlipidemia, hypertension, migraine, peripheral artery disease Additional medical history: ulnar neuropathy, LUE, peripheral vascular disease, lumbar facet arthropathy, disorder of scrum, multiple cerebral infarctions, Psychiatric history: anxiety, bipolar, depression, panic disorder - Past Surgical History Surgical History: angioplasty/stent, carotid endarterectomy, other, vascular surgery, LE stent (s), LE vascular intervention Additional surgical history: BILAT CEA, LLE STENTS PLACED, RLE STENTS PLACED. - Social History Smoking Status: Current every day smoker Smokeless Tobacco Status: No Alcohol use: none Drug use: none - Family History Father History Unknown: Yes Family Member Ethnicity: Non- Living Status: Hx Family Cardiac Disorders: Yes (CHF) Mother History Unknown: Yes Family Member Ethnicity: Non- Living Status: Hx Family Cardiac Disorders: Yes (CHF) Hx Family Neurologic Disorders: Yes Medications and Allergies Budesonide/Formoterol 160/4.5 [Symbicort 160/4.5] 2 puff IH BIDR 12/14/18 [History] Cilostazol [Pletal] 100 mg PO BID 12/14/18 [History] Cyclobenzaprine [Flexeril] 10 mg PO DAILY 12/14/18 [History] HYDROcodone/Acet 7.5/325 mg [Pearson 7.5-325 mg] 1 tab PO Q6H PRN 12/14/18 [History] Lipase/Protease/Amylase [Creon Dr 12,000 Units Capsule] 2 each PO ACHS 12/14/18 [History] Zolpidem [Ambien] 10 mg PO HS 12/14/18 [History] clonazePAM [Clonazepam] 1 mg PO QID PRN 12/14/18 [History] metFORMIN [Glucophage] 500 mg PO HS 12/14/18 [History] risperiDONE [Risperidone] 1 mg PO HS 12/14/18 [History] Citalopram [CeleXA] 40 mg PO DAILY 12/15/18 [History] Clopidogrel [Plavix] 75 mg PO DAILY 12/15/18 [History] Doxepin [Sinequan] 75 mg PO HS 12/15/18 [History] Simvastatin [Zocor] 40 mg PO HS 12/15/18 [History] lamoTRIgine [Lamictal Xr] 100 mg PO DAILY 12/15/18 [History] Allergy/AdvReac Type Severity Reaction Status Date / Time Penicillins Allergy Hives Verified 12/09/18 10:57 ROS unobtainable: due to endotracheal tube Oncology - Exam - Constitutional Exam: intubated, sedated, arousable - Head Head exam: Present: atraumatic, normal inspection - ENT ENT exam: Present: mucous membranes dry Additional comments: ET tube in place - Neck Additional comments: no adenopathy/fullness - Respiratory Respiratory exam: Present: CTAB Additional comments: fernando air entry - Cardiovascular Cardiovascular exam: Present: +S1, +S2, tachycardia - GI/Abdominal GI/Abdominal exam: Present: normal bowel sounds, soft - Extremities Exam Extremities exam: Present: normal inspection - Neurological Exam Additional comments: sedated on mechanical ventilation - Skin Skin exam: Present: dry, warm Oncology Inpatient Results as in HPI Consult Discharge Plan - Plan Referrals: Maisha Ruth RADARMAN [Primary Care Provider] - 12/24/18 1:20 pm Inpatient Charges Provider: Dr. Isa Ca Consult - Inpatient: [id number]
--- NOTE | 2018-12-17 20:36 | Oncology Inp Progress Note ---
Date of Encounter: 12/17/18 Time of Encounter: 20:00 (1) Metastatic lung carcinoma Current Visit: No Status: Acute Assessment and plan: Stage IV squamous cell carcinoma, fernando lung nodules, rt hilar mass PET positive s/p bx of AP window adenopathy, palliative chemo was planned. She is intubated due to ac respiratory failure, possibly due to volume -high BNP, lung mass/collapse and COPD. s/p bronch procedure, will discuss findings with ICU attending MAy need palliative radiation prior to initiating chemotherapy or debulking/stent Discussed with ICU attending on plan of care. Qualifiers: Laterality: right Qualified Code(s): C78.01 - Secondary malignant neoplasm of right lung Oncology: Subj Interval history: Patient sedated and intubated, arousable on exam. FiO2 40% PEEP5 - Constitutional Exam: sedated on ventilator - Head Head exam: Present: atraumatic, normal inspection - Eye Eye exam: Present: conjuntiva pink, sclera anicteric - ENT Additional comments: ET tube - Respiratory Respiratory exam: Present: CTAB - Cardiovascular Cardiovascular exam: Present: +S1, +S2, tachycardia - GI/Abdominal GI/Abdominal exam: Present: normal bowel sounds, soft - Extremities Exam Extremities exam: Present: normal inspection - Skin Skin exam: Present: dry Oncology: Obj Data - Labs CBC & Chem 7: 12/17/18 03:00 12/17/18 03:00 Consult Discharge Plan - Plan Referrals: Maisha Ruth CNP [Primary Care Provider] - 12/24/18 1:20 pm Inpatient Charges Provider: Dr. Isa Ca Follow up - Inpatient: [id number]
[2018-12-17] MEDS: risperiDONE 1 MG TABLET PO SCH (20:49)
[2018-12-18] MEDS: FentaNYL (PF) 1,000 MCG in 0.9 % Sodium Chloride 80 ML IVC SCH ×4 (02:14→20:39)
[2018-12-18] MEDS: Artificial Tears SOLN 15 ML BOTTLE BOTH EYES SCH ×6 (03:16→23:27)
[2018-12-18] MEDS: 0.9 % Sodium Chloride 1,000 ML IVC SCH (03:16)
[2018-12-18] MEDS: Ipratropium/Albuterol Neb 3 ML IH SCH ×12 (03:37→23:56)
[2018-12-18 03:39] LABS: Basophils % 0.2 %; Hematocrit 33.7 % (35.3-44.9); Hemoglobin 11.4 g/dL (11.5-15.4); Immature Granulocytes % 0.4 % (0-4); Lymphocytes # 0.5 K/mcL (0.6-4.6); Lymphocytes % 8.3 %; Mean Corpuscular HGB Conc 33.8 g/dL (31.6-35.5); Mean Corpuscular Hemoglobin 31.8 pg (28.0-33.3); Mean Corpuscular Volume 94.1 fL (83.0-100.0); Mean Platelet Volume 9.2 fL (9.4-12.4); Monocytes # 0.4 K/mcL (0.0-1.3); Monocytes % 6.5 %; Neutrophils # 4.6 K/mcL (1.6-8.9); Platelet Count 192 K/mcL (140-400); Red Blood Count 3.58 M/mcL (3.82-4.97); Red Cell Distribution Width 11.9 % (11.5-14.5); Segmented Neutrophils % 84.6 %
[2018-12-18 03:54] LABS: BUN/Creatinine Ratio 35 (6-26); Blood Urea Nitrogen 22 mg/dL (8-23); Carbon Dioxide 28 mEq/L (23-29); Chloride 102 mEq/L (98-107); Glucose 149 mg/dL (70-105); Osmolality,Calculated 290 (280-300); Potassium 3.2 mEq/L (3.5-5.1); Sodium 137 mEq/L (136-145); eGFR For Non-African Americans > 60 (> 60)
[2018-12-18] MEDS ORDERED: Potassium Chloride Elixir 20 MEQ/15 ML UDC PO ONE (04:09)
[2018-12-18 04:47] LABS: ABG Base Excess 6 mEq/L (-2 to 3); ABG HCO3 30 mEq/L (21-27); ABG Oxygen Saturation 94 % (95-98); ABG PCO2 41 mmHg (35-45); ABG PH 7.47 pH Units (7.32-7.45); ABG PO2 67 mmHg (85-104); ABG TCO2 32 mEq/L (20-26); Blood Gas Modality ASSIST CONTROL; Blood Gas PEEP 5 cm H2O; Blood Gas Respiration Rate 20; Blood Gas VT 450 cc
[2018-12-18] MEDS: *HR* Heparin 5,000 UNIT/ML VIAL SQ SCH ×3 (05:23→23:26)
[2018-12-18] MEDS: Insulin LISPRO 300 UNITS/3 ML VIAL SQ SCH ×4 (05:23→23:28)
[2018-12-18] MEDS: Budesonide/Formoterol 160/4.5 1 PUFF INH IH SCH ×2 (07:17→19:51)
[2018-12-18] MEDS: Aspirin 81 MG TAB.CHEW PO SCH (07:59)
[2018-12-18] MEDS: MetroNIDAZOLE 500 MG/100 ML 500 MG/100 ML BAG IVPB SCH ×3 (08:00→23:26)
[2018-12-18] MEDS: Cefepime HCl 1,000 MG in Water for inj. (sterile) 20 ML 10 ML IVP SCH ×3 (08:00→23:27)
[2018-12-18] MEDS: Pantoprazole 40 MG VIAL IVP SCH (08:01)
[2018-12-18] MEDS: Chlorhexidine Rinse 15 ML MOUTHWASH MM SCH ×2 (08:01→19:34)
[2018-12-18] MEDS: Hydrocortisone Sodium Succ 100 MG/2 ML VIAL IVP SCH ×3 (08:01→23:26)
[2018-12-18] MEDS ORDERED: Furosemide 20 MG/2 ML VIAL IVP SCH (10:15)
[2018-12-18] MEDS: Furosemide 40 MG/4 ML VIAL IVP SCH ×2 (10:55→18:04)
[2018-12-18] MEDS: Dexmedetomidine HCl 400 MCG/100 ML MLS IVC SCH ×2 (10:55→20:45)
--- NOTE | 2018-12-18 10:55 | Pulmonology Progress Note ---
<Kwan Scott - Last Filed: 12/18/18 19:26> Date of Encounter: 12/18/18 Time of Encounter: 10:30 Assessment and Plan (1) Acute and chronic respiratory failure with hypoxia Current Visit: Yes Status: Acute -Likely multifactorial given her history of COPD and CHF. -Patient was dyspneic yesterday, showing signs of COPD exacerbation and was started on DuoNeb so along with Symbicort. -Chest x-ray from yesterdayshowed signs of increased air space opacity in the right upper lobe suspicious for pneumonia. - ABG showed pH 7.47, pCO2: 41, HCO3: 30. -Currently intubated with FiO2: 40%, PEEP: 5. DuoNeb every 2 hours Scheduled. Until currently on flagyl and cefepime for anaerobes and atypical coverage. Vancomycin has been discontinued because of MRSA swab was negative (2) Hypotension Current Visit: Yes Status: Acute -Patient presented to the hospital with hypotension likely due to adrenal insufficiency given low random cortisol (4.9) -She is a status post volume resuscitation with 7 L positive yesterday. -Currently on stress dose steroids and PPI. Central venous catheter and placement for a pressor support in case patient's map falls below below 65. -Currently holding off on more of fluids so because of concerns for pneumonia and respiratory distress. Patient currently on lasix to help with reducing the preload. Qualifiers: Hypotension type: other hypotension type Qualified Code(s): I95.89 - Other hypotension (3) COPD (chronic obstructive pulmonary disease) Current Visit: No Status: Chronic -Patient has a history of COPD she is on budesonide at home COPD control.. -Patient has never COPD exacerbation until this morning when she was dyspneic with concerns for COPD exacerbation. -Currently she's on DuoNeb's every 2 hours scheduled, patient is also on cefepime and Flagyl. -Currently on the ventilator with PEEP: 5, FiO2: 40% Qualifiers: COPD type: unspecified COPD Qualified Code(s): J44.9 - Chronic obstructive pulmonary disease, unspecified (4) CHF (congestive heart failure) Current Visit: Yes Status: Acute -Patient with a history of congestive heart failure. -Her most recent echocardiogram revealed an ejection fraction of 60% with mild left ventricular diastolic dysfunction with no evidence of pulmonary hypertension .. -Monitor Is/Os. BNP 631 . Cumulative Is/Os: 9398/4605. 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 Patient follows with Dr. Diop in [place] [facility]. Patient is scheduled to get a port placement scheduled for chemotherapy. -Patient to chest x-ray showed a right hilar mass and nodules similar to her prior chest x-ray -Oncology has been consulted. Qualifiers: Laterality: right Qualified Code(s): C78.01 - Secondary malignant neoplasm of right lung (6) Adrenal insufficiency Current Visit: Yes Status: Acute -PatentAssessment signs and symptoms of adrenal insufficiency. Patient's random cortisol yesterday was 4.9. -The patient is on hydrocortisone 100 mg IV every 8 hours (7) Pneumonia Current Visit: Yes Status: Acute - patient was dyspnic ths morning, currently intubated due to acute on chronic hypercarbic resp failure - most recent CXR showed increasing airspace opacity in the right upper lobe suspicious for pneumonia. Patient on Ventilator -currently on flagyl and cefepime, chest CT pending. - continue to monitor Qualifiers: Qualified Code(s): J18.9 - Pneumonia, unspecified organism (8) Cholelithiasis Current Visit: Yes Status: Acute -initial presenting finding of cholelithiasis. Patient is afebrile, no murphys sign, not jaundiced currently -Patient CT showed cholelithiasis with borderline gallbladder wall thickening. - surgery on board, no indications of any surgical intervention at the moment until patient is hemodynamically stable. Qualifiers: Cholelithiasis location: gallbladder Qualified Code(s): K80.00 - Calculus of gallbladder with acute cholecystitis without obstruction Subjective Principal diagnosis: Pre-op Interval history: 12/18 no acute events overnight. Patient failed the CPAP trial likely secondary to some kind of anxiety. Plan is to perform the CPAP trial again tomorrow. Patient continues to get DuoNeb's cutis every 2 hours for her COPD. On physical exam today she was wheezing bilaterally but no decreased breath sounds. Most recnet ABG showed some concerns for alkalosis and patient's minute ventialtion was decreased to get her blood pH down to assist with the CPAP trial 12/17 No acute events overnight. Patient continues to be vancomycin , cefepime and agile with concerns for pneumonia. Of note patient's most recent chest x-ray showed right upper lobe showed increasing airspace opacity in the right upper lobe suspicious for pneumonia. In conjunction with small bilateral pleural effusion. Patient's blood pressure has been between 90-100s systolic this morning. She has not required the need for any pressors. Her BNP was elevated to 631. Given her history of for diastolic dysfunction along with increasing elevated BNP there is no indication for fluid resuscitation at the moment. Patient continues to get DuoNeb's cutis every 2 hours for her COPD. On physical exam today she was wheezing bilaterally but no decreased breath sounds. Patient is scheduled for a chest CT today. 12/16 Ms. Mace is a 62-year-old female past medical history of squamous cell lung cancer, COPD, diabetes presented from a [facility] with concerns for cholelithiasis and probably possible choledocholithiasis. At the [facility] patient was hypotensive with blood eqstryto20/60, lactate 1.7. Here on the floor, patient was hyponatremic because of decreased PO intake secondary to her gallbladder etiology. Patient also had adynamic troponin which were downtrending as of yesterday. Patient has a history of COPD, does not use home oxygen and was not found to be in COPD exacerbation until this morning when patient got dyspneic, and was put on DuoNeb's and Symbicort. She has been hypotensive its possible adrenal insufficiency and was given a stress dose of steroids and PPIs. She also has a newly diagnosed metastatic lung carcinoma and the plan was to start chemotherapy tomorrow. However this morning or after his office call the patient was found liters. His distress. Nurse. With blood pressure 100/60s. She was found to be using her accessory muscles for breathing and was not found suitable unstable enough to report BiPAP. Owing to concern of flow fatigue of respiratory muscles patient was intubated. Objective PUL Vital signs: Last Vital Signs Temp 98.1 F 12/18/18 07:40 Pulse 98 12/18/18 10:00 Resp 15 12/18/18 10:00 BP 81/58 12/18/18 10:00 Pulse Ox 93 12/18/18 10:00 Gen: Currently intubated HEENT: oropharynx clear, Normocephalic, atraumatic, MMM, central line in place on the right side Neck: supple, no JVD, no lymphadenopathy, no carotid bruit. Cardiac: no murmur, +S1/S2, No BLE edema, PMI non-displaced Pulmonary: b/l wheezes (betetr than yesterday), no rales or rhonchi, equal chest expansion Abdomen: soft, nontender, BS noted, no guarding, mildly distended. No organomegaly, no pulsatile masses, Skin: warm and dry, no visible lesions. Feels warm, clammy, no rashes, no lesions, no erythema MSK: trace pedal edema, ROM not assessed. no joint swelling noted, gait not assessed while in bed. Non tender calf or clubbing, no cyanosis/clubbing/ or edema Ventilator Settings Ventilator Settings: Ventilator Settings, Last 8 Hours Ventilator Tidal Volume 400 Setting Ventilator Tidal Volume 400 Setting Ventilator Tidal Volume 400 Setting Ventilator Tidal Volume 450 Setting Ventilator Tidal Volume 450 Setting Ventilator Tidal Volume 450 Setting Ventilator Tidal Volume 450 Setting Ventilator Tidal Volume 450 Setting Ventilator Tidal Volume 450 Setting Ventilator Tidal Volume 450 Setting Ventilator Tidal Volume 450 Setting Ventilator Tidal Volume 450 Setting Ventilator Respiratory Rate 14 Setting Ventilator Respiratory Rate 14 Setting Ventilator Respiratory Rate 14 Setting Ventilator Respiratory Rate 18 Setting Ventilator Respiratory Rate 18 Setting Ventilator Respiratory Rate 18 Setting Ventilator Respiratory Rate 20 Setting Ventilator Respiratory Rate 20 Setting Ventilator Respiratory Rate 20 Setting Ventilator Respiratory Rate 20 Setting Ventilator Respiratory Rate 20 Setting Ventilator Respiratory Rate 20 Setting Actual Respiratory Rate 15 Actual Respiratory Rate 19 Actual Respiratory Rate 16 Actual Respiratory Rate 18 Actual Respiratory Rate 18 Actual Respiratory Rate 18 Actual Respiratory Rate 20 Actual Respiratory Rate 20 Actual Respiratory Rate 20 Actual Respiratory Rate 20 Actual Respiratory Rate 20 Positive End Expiratory 5 Pressure Positive End Expiratory 5 Pressure Positive End Expiratory 5 Pressure Positive End Expiratory 5 Pressure Positive End Expiratory 5 Pressure Positive End Expiratory 5 Pressure Positive End Expiratory 5 Pressure Positive End Expiratory 5 Pressure Positive End Expiratory 5 Pressure Positive End Expiratory 5 Pressure Positive End Expiratory 5 Pressure Positive End Expiratory 5 Pressure Peak Inspiratory Airway 34 Pressure Peak Inspiratory Airway 14 Pressure Peak Inspiratory Airway 28 Pressure Peak Inspiratory Airway 37 Pressure Peak Inspiratory Airway 37 Pressure Peak Inspiratory Airway 37 Pressure Peak Inspiratory Airway 38 Pressure Peak Inspiratory Airway 38 Pressure Peak Inspiratory Airway 38 Pressure Peak Inspiratory Airway 38 Pressure Peak Inspiratory Airway 36 Pressure Results - Laboratory Findings CBC and BMP: 12/18/18 03:29 12/18/18 03:29 ABG ABG pH 7.47 pH Units (7.32-7.45) H 12/18/18 04:43 ABG pCO2 41 mmHg (35-45) 12/18/18 04:43 ABG pO2 67 mmHg (85-104) L 12/18/18 04:43 ABG O2 Saturation 94 % (95-98) L 12/18/18 04:43 PT/INR, D-dimer PT 12.1 Seconds (9.4-12.1) 12/16/18 16:09 Abnormal lab findings: Abnormal lab results RBC 3.58 M/mcL (3.82-4.97) L 12/18/18 03:29 Hgb 11.4 g/dL (11.5-15.4) L 12/18/18 03:29 Hct 33.7 % (35.3-44.9) L 12/18/18 03:29 MPV 9.2 fL (9.4-12.4) L 12/18/18 03:29 Lymphocytes # 0.5 K/mcL (0.6-4.6) L 12/18/18 03:29 APTT 45.7 Seconds (26.0-36.0) H 12/14/18 21:20 ABG pH 7.47 pH Units (7.32-7.45) H 12/18/18 04:43 ABG pO2 67 mmHg (85-104) L 12/18/18 04:43 ABG HCO3 30 mEq/L (21-27) H 12/18/18 04:43 ABG Total CO2 32 mEq/L (20-26) H 12/18/18 04:43 ABG O2 Saturation 94 % (95-98) L 12/18/18 04:43 ABG Base Excess 6 mEq/L (-2 to 3) H 12/18/18 04:43 Potassium 3.2 mEq/L (3.5-5.1) L 12/18/18 03:29 BUN/Creatinine Ratio 35 (6-26) H 12/18/18 03:29 Glucose 149 mg/dL (70-105) H 12/18/18 03:29 POC Glucose 143 mg/dL (70-99) H 12/18/18 05:22 Magnesium 1.5 mg/dL (1.6-2.6) L 12/15/18 03:32 Troponin I 0.07 ng/mL (< 0.04) H* 12/15/18 03:32 B-Natriuretic Peptide 631 pg/mL (Less than 100) H 12/16/18 18:55 Serum Total Protein 4.8 g/dL (6.4-8.9) L 12/15/18 03:32 Albumin 2.9 g/dL (3.5-5.7) L 12/15/18 03:32 Globulin 1.9 g/dL (2.4-3.5) L 12/15/18 03:32 TSH 0.310 mcIU/mL (0.340-5.600) L 12/15/18 15:03 Urine Clarity Cloudy (Clear) A 12/16/18 21:30 Urine Protein 100 mg/dL (Neg-Trace) H 12/16/18 21:30 Urine Ketones 15 mg/dL (Negative) H 12/16/18 21:30 Urine Blood Large (Negative) H 12/16/18 21:30 Ur Leukocyte Esterase Trace (Negative) H 12/16/18 21:30 Urine Microscopic RBC TNTC per hpf (0-3) H 12/16/18 21:30 Urine Microscopic WBC 5-15 per hpf (0-3) H 12/16/18 21:30 Ur Squamous Epith Cells Many per lpf (None-Few) H 12/16/18 21:30 - Clinical Findings Intake & Output: Intake & Output 12/17/18 12/18/18 12/18/18 23:59 07:59 15:59 Intake Total 459 / 459 606 / 606 Output Total 225 / 225 275 / 275 Balance 234 / 234 331 / 331 Weight 86.7 kg Consult Discharge Plan - Plan Referrals: Maisha Ruth, KJ [Primary Care Provider] - 12/24/18 1:20 pm <Tereza Villalba - Last Filed: 12/18/18 21:34> Date of Encounter: 12/18/18 Assessment and Plan (1) Cholelithiasis Current Visit: Yes Status: Acute Qualifiers: Cholelithiasis location: gallbladder Qualified Code(s): K80.00 - Calculus of gallbladder with acute cholecystitis without obstruction (2) Hypotension Current Visit: Yes Status: Acute Qualifiers: Hypotension type: other hypotension type Qualified Code(s): I95.89 - Other hypotension (3) Adrenal insufficiency Current Visit: Yes Status: Acute Objective PUL Vital signs: Last Vital Signs Temp 98.1 F 12/18/18 20:14 Pulse 93 12/18/18 20:00 Resp 22 12/18/18 20:00 BP 145/97 12/18/18 20:00 Pulse Ox 94 12/18/18 20:00 Ventilator Settings Ventilator Settings: Ventilator Settings, Last 8 Hours Ventilator Tidal Volume 400 Setting Ventilator Tidal Volume 400 Setting Ventilator Tidal Volume 400 Setting Ventilator Tidal Volume 400 Setting Ventilator Tidal Volume 400 Setting Ventilator Tidal Volume 400 Setting Ventilator Tidal Volume 400 Setting Ventilator Tidal Volume 400 Setting Ventilator Tidal Volume 400 Setting Ventilator Tidal Volume 400 Setting Ventilator Tidal Volume 400 Setting Ventilator Respiratory Rate 14 Setting Ventilator Respiratory Rate 14 Setting Ventilator Respiratory Rate 14 Setting Ventilator Respiratory Rate 14 Setting Ventilator Respiratory Rate 14 Setting Ventilator Respiratory Rate 14 Setting Ventilator Respiratory Rate 14 Setting Ventilator Respiratory Rate 14 Setting Ventilator Respiratory Rate 14 Setting Ventilator Respiratory Rate 14 Setting Ventilator Respiratory Rate 14 Setting Actual Respiratory Rate 22 Actual Respiratory Rate 14 Actual Respiratory Rate 16 Actual Respiratory Rate 14 Actual Respiratory Rate 19 Actual Respiratory Rate 20 Actual Respiratory Rate 20 Actual Respiratory Rate 15 Actual Respiratory Rate 19 Actual Respiratory Rate 14 Actual Respiratory Rate 14 Positive End Expiratory 5 Pressure Positive End Expiratory 5 Pressure Positive End Expiratory 5 Pressure Positive End Expiratory 5 Pressure Positive End Expiratory 5 Pressure Positive End Expiratory 5 Pressure Positive End Expiratory 5 Pressure Positive End Expiratory 5 Pressure Positive End Expiratory 5 Pressure Positive End Expiratory 5 Pressure Positive End Expiratory 5 Pressure Peak Inspiratory Airway 33 Pressure Peak Inspiratory Airway 34 Pressure Peak Inspiratory Airway 27 Pressure Peak Inspiratory Airway 36 Pressure Peak Inspiratory Airway 13 Pressure Peak Inspiratory Airway 32 Pressure Peak Inspiratory Airway 22 Pressure Peak Inspiratory Airway 34 Pressure Peak Inspiratory Airway 28 Pressure Peak Inspiratory Airway 29 Pressure Peak Inspiratory Airway 28 Pressure Results - Laboratory Findings CBC and BMP: 12/18/18 03:29 12/18/18 03:29 ABG ABG pH 7.47 pH Units (7.32-7.45) H 12/18/18 04:43 ABG pCO2 41 mmHg (35-45) 12/18/18 04:43 ABG pO2 67 mmHg (85-104) L 12/18/18 04:43 ABG O2 Saturation 94 % (95-98) L 12/18/18 04:43 PT/INR, D-dimer PT 12.1 Seconds (9.4-12.1) 12/16/18 16:09 Abnormal lab findings: Abnormal lab results RBC 3.58 M/mcL (3.82-4.97) L 12/18/18 03:29 Hgb 11.4 g/dL (11.5-15.4) L 12/18/18 03:29 Hct 33.7 % (35.3-44.9) L 12/18/18 03:29 MPV 9.2 fL (9.4-12.4) L 12/18/18 03:29 Lymphocytes # 0.5 K/mcL (0.6-4.6) L 12/18/18 03:29 APTT 45.7 Seconds (26.0-36.0) H 12/14/18 21:20 ABG pH 7.47 pH Units (7.32-7.45) H 12/18/18 04:43 ABG pO2 67 mmHg (85-104) L 12/18/18 04:43 ABG HCO3 30 mEq/L (21-27) H 12/18/18 04:43 ABG Total CO2 32 mEq/L (20-26) H 12/18/18 04:43 ABG O2 Saturation 94 % (95-98) L 12/18/18 04:43 ABG Base Excess 6 mEq/L (-2 to 3) H 12/18/18 04:43 Potassium 3.2 mEq/L (3.5-5.1) L 12/18/18 03:29 BUN/Creatinine Ratio 35 (6-26) H 12/18/18 03:29 Glucose 149 mg/dL (70-105) H 12/18/18 03:29 POC Glucose 150 mg/dL (70-99) H 12/18/18 18:02 Magnesium 1.5 mg/dL (1.6-2.6) L 12/15/18 03:32 Troponin I 0.07 ng/mL (< 0.04) H* 12/15/18 03:32 B-Natriuretic Peptide 631 pg/mL (Less than 100) H 12/16/18 18:55 Serum Total Protein 4.8 g/dL (6.4-8.9) L 12/15/18 03:32 Albumin 2.9 g/dL (3.5-5.7) L 12/15/18 03:32 Globulin 1.9 g/dL (2.4-3.5) L 12/15/18 03:32 TSH 0.310 mcIU/mL (0.340-5.600) L 12/15/18 15:03 Urine Clarity Cloudy (Clear) A 12/16/18 21:30 Urine Protein 100 mg/dL (Neg-Trace) H 12/16/18 21:30 Urine Ketones 15 mg/dL (Negative) H 12/16/18 21:30 Urine Blood Large (Negative) H 12/16/18 21:30 Ur Leukocyte Esterase Trace (Negative) H 12/16/18 21:30 Urine Microscopic RBC TNTC per hpf (0-3) H 12/16/18 21:30 Urine Microscopic WBC 5-15 per hpf (0-3) H 12/16/18 21:30 Ur Squamous Epith Cells Many per lpf (None-Few) H 12/16/18 21:30 - Clinical Findings Intake & Output: Intake & Output 12/18/18 12/18/18 12/18/18 07:59 15:59 23:59 Intake Total 606 / 606 635 / 635 708 / 708 Output Total 275 / 275 1650 / 1650 700 / 700 Balance 331 / 331 -1015 / -1015 - Attending Attestation - Attending Attestation I saw and evaluated this patient and my medical decision-making was reviewed with the Resident Physician. I agree with the documented findings, disposition and treatment plan as described except to the extent set forth below. We independently had [id number] contact with the patient I spent 35 minutes of Critical Care time with this patient. It involved decision making of high complexity to assess, manipulate, and support vital organ system failure and/or to prevent further life threatening deterioration of the patient's condition. The time involved in the performance of separately reportable procedures was not counted toward critical care time. Patient seen and examined at bedside Labs, radiology, chart personally reviewed. Management was reviewed during multidisciplinary critical care rounds. HRIS COORDINATOR: Patient has baseline anxiety disorder on chronic benzodiazepine patient now was intubated note to give sedation with opioids and benzodiazepine. As patient has chronic benzodiazepine dependence patient was altered developed acute on chronic hypoxic hypercarbic respiratory failure patient was intubated for that reason well I was doing in the central line patient was awake completely following commands I doubt she has central nervous system issue like stroke will closely follow with neuro checks 12/17 Patient is intubated with minimal sedation patient is following commands in my exam 12/18 Patient when liberated from the sedation follows commands she interacts at the same time she becomes anxious to start her on prn Ativan her home regimen Pulm: Patient is hypoxic and hypercarbic respiratory failure on this the tidal volume and the ventilator settings to have acceptable oxygenation and ventilation. The worsening VQ mismatch is multifactorial secondary to COPD exacerbation acute on chronic diastolic heart failure complicated by fluid resuscitation as patient presented with hypotension. Right worsening infiltrates the side of her Squamous cell ca of lung will do Bronchoscopy airway exam as patient is waiting for chemotherapy for her lung cancer. 12/17 Patient has acceptable oxygenation and ventialtion , i did the Bronchoscopy with airway exam i could not find the Right lower lobe fungating mass the Right upper lobe is completely occluded after that i did a CT scan which showed worsening RUL post obstructive collapse will discuss with for possible stenting or if she gets extubated she will need immediate radiotherapy 12/[address] scan enlarging RUL Squamous cell ca not amenable from stenting after extubation patient will need radiotherapy Cards: He presented with hypotension echo showed diastolic dysfunction with normal ejection fraction this hypertension most likely due to adrenal insufficiency patient blood pressure responded well to IV hydrocortisone 12/18 To continue diuresis as tolerated FEN-GI: Tube feeding , IV PPI Renal: Labs and output reviewed ID: worsening right sided possible obstructive collapse to cover with broad spectrum antibiotics Heme/Onc: Patient has recently diagnosed squamous cell ca waiting to start Chemotherapy and radiotherapy Endo: Patient has adrenal sufficiency to continue Hydrocortisone 100mg IV 8hrly Integ/MSK: Skin Care per routine ICU Nursing Protocol to prevent ulcers. Lines: All lines examined without evidence of infection : Dispo: Critically ill CODE:Full Code
[2018-12-18] MEDS: clonazePAM 1 MG TABLET PO PRN (19:34)
[2018-12-18] MEDS: risperiDONE 1 MG TABLET PO SCH (19:34)
[2018-12-19] MEDS: FentaNYL (PF) 2,500 MCG in EMPTY BAG 1 EACH IVC SCH ×2 (01:17→07:56)
[2018-12-19] MEDS: Dexmedetomidine HCl 400 MCG/100 ML MLS IVC SCH ×4 (01:18→18:11)
[2018-12-19] MEDS: Ipratropium/Albuterol Neb 3 ML IH SCH ×9 (02:00→20:07)
[2018-12-19] MEDS: Artificial Tears SOLN 15 ML BOTTLE BOTH EYES SCH ×6 (03:52→23:24)
[2018-12-19 03:56] LABS: Basophils % 0.1 %; Hematocrit 39.6 % (35.3-44.9); Immature Granulocytes % 0.5 % (0-4); Lymphocytes # 0.4 K/mcL (0.6-4.6); Lymphocytes % 5.3 %; Mean Corpuscular HGB Conc 32.8 g/dL (31.6-35.5); Mean Corpuscular Hemoglobin 31.7 pg (28.0-33.3); Mean Corpuscular Volume 96.6 fL (83.0-100.0); Mean Platelet Volume 9.2 fL (9.4-12.4); Monocytes # 0.6 K/mcL (0.0-1.3); Monocytes % 7.8 %; Neutrophils # 6.6 K/mcL (1.6-8.9); Platelet Count 208 K/mcL (140-400); Segmented Neutrophils % 86.3 %
[2018-12-19 04:17] LABS: BUN/Creatinine Ratio 45 (6-26); Blood Urea Nitrogen 31 mg/dL (8-23); Calcium 9.4 mg/dL (8.6-10.3); Carbon Dioxide 32 mEq/L (23-29); Chloride 101 mEq/L (98-107); Glucose 151 mg/dL (70-105); Osmolality,Calculated 303 (280-300); Potassium 3.4 mEq/L (3.5-5.1); Sodium 142 mEq/L (136-145); eGFR For Non-African Americans > 60 (> 60)
[2018-12-19 05:35] LABS: ABG Base Excess 7 mEq/L (-2 to 3); ABG HCO3 32 mEq/L (21-27); ABG Oxygen Saturation 94 % (95-98); ABG PCO2 47 mmHg (35-45); ABG PH 7.45 pH Units (7.32-7.45); ABG PO2 69 mmHg (85-104); ABG TCO2 34 mEq/L (20-26); Blood Gas PEEP 5 cm H2O; Blood Gas Respiration Rate 14; Blood Gas VT 400 cc
[2018-12-19] MEDS: *HR* Heparin 5,000 UNIT/ML VIAL SQ SCH ×3 (06:16→20:30)
[2018-12-19] MEDS: Insulin LISPRO 300 UNITS/3 ML VIAL SQ SCH ×3 (06:18→20:31)
[2018-12-19] MEDS: Budesonide/Formoterol 160/4.5 1 PUFF INH IH SCH ×2 (07:30→20:07)
[2018-12-19] MEDS: MetroNIDAZOLE 500 MG/100 ML 500 MG/100 ML BAG IVPB SCH ×3 (07:55→23:23)
[2018-12-19] MEDS: Chlorhexidine Rinse 15 ML MOUTHWASH MM SCH ×2 (07:56→19:50)
[2018-12-19] MEDS: Cefepime HCl 1,000 MG in Water for inj. (sterile) 20 ML 10 ML IVP SCH ×3 (07:57→23:23)
[2018-12-19] MEDS: Hydrocortisone Sodium Succ 100 MG/2 ML VIAL IVP SCH ×3 (07:58→23:24)
[2018-12-19] MEDS: Furosemide 40 MG/4 ML VIAL IVP SCH ×3 (07:58→22:08)
[2018-12-19] MEDS: Pantoprazole 40 MG VIAL IVP SCH (07:58)
[2018-12-19] MEDS: Aspirin 81 MG TAB.CHEW PO SCH (08:45)
[2018-12-19] MEDS: Ketorolac 30 MG/ML VIAL IVP PRN (13:51)
[2018-12-19] MEDS: clonazePAM 1 MG TABLET PO PRN ×2 (13:51→20:29)
--- NOTE | 2018-12-19 13:57 | Pulmonology Progress Note ---
<Marley Rios - Last Filed: 12/19/18 15:40> Date of Encounter: 12/19/18 Time of Encounter: 10:00 Assessment and Plan (1) Acute and chronic respiratory failure with hypoxia Current Visit: Yes Status: Acute Improving, has been extubated today, transition to CPAP and now transitioned to 8 L high flow nasal cannula and currently saturating at 97% Likely secondary to lung carcinoma, COPD and CHF exacerbations with pneumonia. Not on supplemental oxygen at home. Denies shortness of breath or cough today, admits to mild sore throat however patient was just extubated Chest CT revealed significant right upper lobe postobstructive collapse secondary to lung carcinoma with metastases as well as right sided effusion. Antibiotic coverage with Flagyl and cefepime Continues on Precedex Continue DuoNeb and Symbicort Continue respiratory support as needed. (2) COPD exacerbation Current Visit: Yes Status: Acute History of COPD, not on home oxygen Current smoker Contributed to acute on chronic respiratory failure Currently extubated and on high flow nasal cannula Continue cefepime, Flagyl, DuoNeb and Symbicort (3) Diastolic CHF Current Visit: Yes Status: Acute History of CHF, diastolic Echo revealed ejection fraction 60% with mild left ventricular diastolic dysfunction and no evidence of pulmonary hypertension On admission was 631 Was fluid resuscitated with 7 L I&O reveals +3.795 L Continue Lasix twice a day Qualifiers: Heart failure chronicity: acute on chronic Qualified Code(s): I50.33 - Acute on chronic diastolic (congestive) heart failure (4) Pneumonia involving right lung Current Visit: Yes Status: Acute Patient had increased respiratory distress yesterday while intubated Most recent chest x-ray showed increasing airspace opacity in right upper lobe which was suspicious for pneumonia Chest CT revealed right upper lobe postobstructive collapse, right suprahilar mass increase in size, pulmonary nodules consistent with metastatic disease, right pleural effusion, small left pleural effusion and small pericardial effusion Continue Flagyl and cefepime for antibiotic coverage Qualifiers: Pneumonia type: due to unspecified organism Lung location: upper lobe of lung Qualified Code(s): J18.1 - Lobar pneumonia, unspecified organism (5) Metastatic lung carcinoma Current Visit: Yes Status: Acute 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 Oncologist is Dr. Diop at [facility]. Was supposed to start treatment however she presented for current admission Right suprahilar mass and right upper lobe postobstructive collapse contributing to acute respiratory failure Oncology is on board Qualifiers: Laterality: right Qualified Code(s): C78.01 - Secondary malignant neoplasm of right lung (6) Adrenal insufficiency Current Visit: Yes Status: Acute Patient had a random cortisol level of 4.9 Adrenal insufficiency has contributed to her hypotension Improved. Current blood pressure is 99/79 She was fluid resuscitated with 7 L. Not on any pressors. Has been started on hydrocortisone which will be continued (7) Cholelithiasis Current Visit: Yes Status: Acute Patient presented with abdominal pain, CT abdomen showed cholelithiasis with borderline gallbladder wall thickening Surgery was consulted however patient declined over course of admission Patient has been extubated today and is on nasal cannula Patient not yet stable enough to undergo surgery, will continue medical management We will attempt a low fat diet Qualifiers: Cholelithiasis location: gallbladder Qualified Code(s): K80.00 - Calculus of gallbladder with acute cholecystitis without obstruction (8) CAD in [place] artery Current Visit: Yes Status: Chronic History of coronary artery disease Continue aspirin and simvastatin Subjective Principal diagnosis: Acute and chronic respiratory failure Interval history: Patient presented as transfer from [place] due to concern for cholelithiasis after having symptoms for the past 5 days. She has past medical history of squamous cell lung cancer cancer, COPD, CAD,diabetes, hypertension, peripheral vascular disease, multiple cerebral infarctions, anxiety, depression, bipolar disorder, panic disorder, current smoker. Follows with oncology, Dr. Clark, lung cancer is newly diagnosed and treatment was planned however is on hold pending this admission. Surgery was consulted for acute cholelithiasis, they consulted cardiology for a pre-operative cardiac assessment, as she has history of CAD with multiple comorbidities. patient became hypotensive and transferred to the ICU. Random cortisol was found to be low, 4.5 and started on hydrocortisone 100 mg every 8 hours for adrenal insufficiency.rapid response was called by staff, found to be in respiratory response with saturations in the 70s heart rate 120s E BP 100/60. Patient was intubated in order to protect airway. Liver ultrasound revealed cholelithiasis with as well as increased echogenicity of the liver compatible with steatosis. Echocardiogram revealed LVEF 60% mild left ventricular diastolic dysfunction and no evidence of pulmonary hypertension. CT chest revealed significantly increased right lower lobe postobstructive collapse as well as increase in size of right suprahilar mass and numerous noncalcified bilateral pulmonary nodules which are consistent with metastatic disease as well as new moderate right pleural effusion and small left pleural effusion and small pericardial effusion. Chest x-ray yesterday revealed no significant change in right upper lobe airspace opacity or atelectasis and the right pleural effusion. Today, the patient was extubated and transitioned to CPAP, with further transition to nasal cannula. She is alert, responsive, and able to answer questions. She admits to diffuse abdominal pain, however she denies any nausea, vomiting, fever, chills, chest pain, shortness of breath, calf pain. Objective PUL Vital signs: Last Vital Signs Temp 98.8 F 12/19/18 10:00 Pulse 92 12/19/18 13:00 Resp 20 12/19/18 13:00 BP 121/85 12/19/18 13:00 Pulse Ox 96 12/19/18 13:00 Gen.: Vitals noted. No acute distress. Alert and orientated to person, resting comfortably in bed. HEENT: PERRL/EOMI, oropharynx clear, Normocephalic, atraumatic, MMM Neck: Supple. No adenopathy. Trachea midline Cardiac: RRR, no murmur, +S1/S2, No BLE edema Pulmonary: CTA bilaterally, no wheezes, rales or rhonchi, equal chest expansion, unlabored breathing Abdomen: soft, mildly distended, diffuse tenderness to palpation, BS noted, no guarding, no palpable HSM Back: Nontender throughout. Skin: warm and dry, no visible lesions. MSK: No joint swelling noted, gait no assessed while in bed. Non tender calf or clubbing Neuro: Alert, orientated to person, able to hold conversation, moves all extremities, no focal deficits, sensation intact, CN2-12 grossly intact Psych: Appropriate mood and behavior Ventilator Settings Ventilator Settings: Ventilator Settings, Last 8 Hours Ventilator Tidal Volume 400 Setting Ventilator Tidal Volume 400 Setting Ventilator Respiratory Rate 14 Setting Ventilator Respiratory Rate 14 Setting Actual Respiratory Rate 7 Actual Respiratory Rate 8 Actual Respiratory Rate 16 Actual Respiratory Rate 14 Positive End Expiratory 5 Pressure Positive End Expiratory 5 Pressure Positive End Expiratory 5 Pressure Positive End Expiratory 5 Pressure Peak Inspiratory Airway 13 Pressure Peak Inspiratory Airway 14 Pressure Peak Inspiratory Airway 26 Pressure Peak Inspiratory Airway 30 Pressure Results - Laboratory Findings CBC and BMP: 12/19/18 03:40 12/19/18 03:40 ABG ABG pH 7.45 pH Units (7.32-7.45) 12/19/18 05:32 ABG pCO2 47 mmHg (35-45) H 12/19/18 05:32 ABG pO2 69 mmHg (85-104) L 12/19/18 05:32 ABG O2 Saturation 94 % (95-98) L 12/19/18 05:32 PT/INR, D-dimer PT 12.1 Seconds (9.4-12.1) 12/16/18 16:09 Abnormal lab findings: Abnormal lab results MPV 9.2 fL (9.4-12.4) L 12/19/18 03:40 Lymphocytes # 0.4 K/mcL (0.6-4.6) L 12/19/18 03:40 APTT 45.7 Seconds (26.0-36.0) H 12/14/18 21:20 ABG pCO2 47 mmHg (35-45) H 12/19/18 05:32 ABG pO2 69 mmHg (85-104) L 12/19/18 05:32 ABG HCO3 32 mEq/L (21-27) H 12/19/18 05:32 ABG Total CO2 34 mEq/L (20-26) H 12/19/18 05:32 ABG O2 Saturation 94 % (95-98) L 12/19/18 05:32 ABG Base Excess 7 mEq/L (-2 to 3) H 12/19/18 05:32 Potassium 3.4 mEq/L (3.5-5.1) L 12/19/18 03:40 Carbon Dioxide 32 mEq/L (23-29) H 12/19/18 03:40 BUN 31 mg/dL (8-23) H 12/19/18 03:40 BUN/Creatinine Ratio 45 (6-26) H 12/19/18 03:40 Glucose 151 mg/dL (70-105) H 12/19/18 03:40 POC Glucose 115 mg/dL (70-99) H 12/19/18 12:10 Calculated Osmolality 303 (280-300) H 12/19/18 03:40 Magnesium 1.5 mg/dL (1.6-2.6) L 12/15/18 03:32 Troponin I 0.07 ng/mL (< 0.04) H* 12/15/18 03:32 B-Natriuretic Peptide 631 pg/mL (Less than 100) H 12/16/18 18:55 Serum Total Protein 4.8 g/dL (6.4-8.9) L 12/15/18 03:32 Albumin 2.9 g/dL (3.5-5.7) L 12/15/18 03:32 Globulin 1.9 g/dL (2.4-3.5) L 12/15/18 03:32 TSH 0.310 mcIU/mL (0.340-5.600) L 12/15/18 15:03 Urine Clarity Cloudy (Clear) A 12/16/18 21:30 Urine Protein 100 mg/dL (Neg-Trace) H 12/16/18 21:30 Urine Ketones 15 mg/dL (Negative) H 12/16/18 21:30 Urine Blood Large (Negative) H 12/16/18 21:30 Ur Leukocyte Esterase Trace (Negative) H 12/16/18 21:30 Urine Microscopic RBC TNTC per hpf (0-3) H 12/16/18 21:30 Urine Microscopic WBC 5-15 per hpf (0-3) H 12/16/18 21:30 Ur Squamous Epith Cells Many per lpf (None-Few) H 12/16/18 21:30 - Clinical Findings Intake & Output: Intake & Output 12/18/18 12/19/18 12/19/18 23:59 07:59 15:59 Intake Total 892 / 892 952.0 / 952.0 213 / 213 Output Total 1350 / 1350 150 / 150 775 / 775 Balance -458 / -458 802.0 / 802.0 -562 / -562 Weight 86.2 kg Consult Discharge Plan - Plan Referrals: Maisha Ruth, [employer] [Primary Care Provider] - 12/24/18 1:20 pm <Tereza Villalba S - Last Filed: 12/19/18 21:34> Date of Encounter: 12/19/18 Assessment and Plan (1) Cholelithiasis Current Visit: Yes Status: Acute Qualifiers: Cholelithiasis location: gallbladder Qualified Code(s): K80.00 - Calculus of gallbladder with acute cholecystitis without obstruction (2) Hypotension Current Visit: Yes Status: Acute Qualifiers: Hypotension type: unspecified hypotension type Qualified Code(s): I95.9 - Hypotension, unspecified (3) Adrenal insufficiency Current Visit: Yes Status: Acute Objective PUL Vital signs: Last Vital Signs Temp 98.8 F 12/19/18 10:00 Pulse 91 12/19/18 18:00 Resp 20 12/19/18 18:00 BP 125/93 12/19/18 18:00 Pulse Ox 98 12/19/18 18:00 Results - Laboratory Findings CBC and BMP: 12/19/18 03:40 12/19/18 03:40 ABG ABG pH 7.45 pH Units (7.32-7.45) 12/19/18 05:32 ABG pCO2 47 mmHg (35-45) H 12/19/18 05:32 ABG pO2 69 mmHg (85-104) L 12/19/18 05:32 ABG O2 Saturation 94 % (95-98) L 12/19/18 05:32 PT/INR, D-dimer PT 12.1 Seconds (9.4-12.1) 12/16/18 16:09 Abnormal lab findings: Abnormal lab results MPV 9.2 fL (9.4-12.4) L 12/19/18 03:40 Lymphocytes # 0.4 K/mcL (0.6-4.6) L 12/19/18 03:40 APTT 45.7 Seconds (26.0-36.0) H 12/14/18 21:20 ABG pCO2 47 mmHg (35-45) H 12/19/18 05:32 ABG pO2 69 mmHg (85-104) L 12/19/18 05:32 ABG HCO3 32 mEq/L (21-27) H 12/19/18 05:32 ABG Total CO2 34 mEq/L (20-26) H 12/19/18 05:32 ABG O2 Saturation 94 % (95-98) L 12/19/18 05:32 ABG Base Excess 7 mEq/L (-2 to 3) H 12/19/18 05:32 Potassium 3.4 mEq/L (3.5-5.1) L 12/19/18 03:40 Carbon Dioxide 32 mEq/L (23-29) H 12/19/18 03:40 BUN 31 mg/dL (8-23) H 12/19/18 03:40 BUN/Creatinine Ratio 45 (6-26) H 12/19/18 03:40 Glucose 151 mg/dL (70-105) H 12/19/18 03:40 POC Glucose 115 mg/dL (70-99) H 12/19/18 12:10 Calculated Osmolality 303 (280-300) H 12/19/18 03:40 Magnesium 1.5 mg/dL (1.6-2.6) L 12/15/18 03:32 Troponin I 0.07 ng/mL (< 0.04) H* 12/15/18 03:32 B-Natriuretic Peptide 631 pg/mL (Less than 100) H 12/16/18 18:55 Serum Total Protein 4.8 g/dL (6.4-8.9) L 12/15/18 03:32 Albumin 2.9 g/dL (3.5-5.7) L 12/15/18 03:32 Globulin 1.9 g/dL (2.4-3.5) L 12/15/18 03:32 TSH 0.310 mcIU/mL (0.340-5.600) L 12/15/18 15:03 Urine Clarity Cloudy (Clear) A 12/16/18 21:30 Urine Protein 100 mg/dL (Neg-Trace) H 12/16/18 21:30 Urine Ketones 15 mg/dL (Negative) H 12/16/18 21:30 Urine Blood Large (Negative) H 12/16/18 21:30 Ur Leukocyte Esterase Trace (Negative) H 12/16/18 21:30 Urine Microscopic RBC TNTC per hpf (0-3) H 12/16/18 21:30 Urine Microscopic WBC 5-15 per hpf (0-3) H 12/16/18 21:30 Ur Squamous Epith Cells Many per lpf (None-Few) H 12/16/18 21:30 - Clinical Findings Intake & Output: Intake & Output 12/19/18 12/19/18 12/19/18 07:59 15:59 23:59 Intake Total 952.0 / 952.0 613 / 613 210 / 210 Output Total 150 / 150 775 / 775 Balance 802.0 / 802.0 -162 / -162 210 / 210 - Attending Attestation - Attending Attestation - Attending Attestation I saw and evaluated this patient and my medical decision-making was reviewed with the Resident Physician. I agree with the documented findings, disposition and treatment plan as described except to the extent set forth below. We independently had [id number] contact with the patient I spent 40 minutes of Critical Care time with this patient. It involved decision making of high complexity to assess, manipulate, and support vital organ system failure and/or to prevent further life threatening deterioration of the patient's condition. The time involved in the performance of separately reportable procedures was not counted toward critical care time. Patient seen and examined at bedside Labs, radiology, chart personally reviewed. Management was reviewed during multidisciplinary critical care rounds. SUPERVISOR ADVICE: Patient has baseline anxiety disorder on chronic benzodiazepine patient now was intubated note to give sedation with opioids and benzodiazepine. As patient has chronic benzodiazepine dependence patient was altered developed acute on chronic hypoxic hypercarbic respiratory failure patient was intubated for that reason well I was doing in the central line patient was awake completely following commands I doubt she has central nervous system issue like stroke will closely follow with neuro checks 12/17 Patient is intubated with minimal sedation patient is following commands in my exam 12/18 Patient when liberated from the sedation follows commands she interacts at the same time she becomes anxious to start her on prn Ativan her home regimen 12/19 Patient is more awake less agitated on Klonopin and precedex will continue this will try to extubate her Pulm: Patient is hypoxic and hypercarbic respiratory failure on this the tidal volume and the ventilator settings to have acceptable oxygenation and ventilation. The worsening VQ mismatch is multifactorial secondary to COPD exacerbation acute on chronic diastolic heart failure complicated by fluid resuscitation as patient presented with hypotension. Right worsening infiltrates the side of her Squamous cell ca of lung will do Bronchoscopy airway exam as patient is waiting for chemotherapy for her lung cancer. 12/17 Patient has acceptable oxygenation and ventialtion , i did the Bronchoscopy with airway exam i could not find the Right lower lobe fungating mass the Right upper lobe is completely occluded after that i did a CT scan which showed worsening RUL post obstructive collapse will discuss with for possible stenting or if she gets extubated she will need immediate radiotherapy 12/[address] scan enlarging RUL Squamous cell ca not amenable from stenting after extubation patient will need radiotherapy 12/19 To extubate today patient did well on her SBT to continue diuresis as tolerated . If she is stable over 48 hrs over the weekend might consider sending her for possible radiotherapy there will be logistical issues taking her safely critical care transport . Cards: He presented with hypotension echo showed diastolic dysfunction with normal ejection fraction this hypertension most likely due to adrenal insufficiency patient blood pressure responded well to IV hydrocortisone. 12/18 To continue diuresis as tolerated. 12/19 To continue diuresis as tolerated FEN-GI: NPO PLANNING for extubation Renal: Labs and output reviewed ID: worsening right sided possible obstructive collapse/pneumonia to cover with broad spectrum antibiotics Heme/Onc: Patient has recently diagnosed squamous cell ca waiting to start Chemotherapy and radiotherapy . Since the mass enlarging might need radiotherapy in urgent basis Endo: Patient has adrenal sufficiency to continue Hydrocortisone 100mg IV 8hrly Integ/MSK: Skin Care per routine ICU Nursing Protocol to prevent ulcers. Lines: All lines examined without evidence of infection : Dispo: Critically ill CODE:Full Code
[2018-12-19] MEDS: risperiDONE 1 MG TABLET PO SCH (20:29)
[2018-12-20] MEDS: Ipratropium/Albuterol Neb 3 ML IH SCH ×6 (00:35→20:53)
[2018-12-20] MEDS: *HR* Heparin 5,000 UNIT/ML VIAL SQ SCH ×3 (05:21→19:58)
[2018-12-20] MEDS: Artificial Tears SOLN 15 ML BOTTLE BOTH EYES SCH ×5 (05:21→19:45)
[2018-12-20] MEDS ORDERED: Potassium Phosphate 44 MEQ in 0.9 % Sodium Chloride 250 ML IVPB PRN (07:10)
[2018-12-20] MEDS: Budesonide/Formoterol 160/4.5 1 PUFF INH IH SCH ×2 (07:36→20:53)
[2018-12-20] MEDS: Insulin LISPRO 300 UNITS/3 ML VIAL SQ SCH ×4 (08:55→20:07)
[2018-12-20] MEDS: Furosemide 40 MG/4 ML VIAL IVP SCH ×2 (09:00→16:36)
[2018-12-20] MEDS: Cefepime HCl 1,000 MG in Water for inj. (sterile) 20 ML 10 ML IVP SCH ×3 (09:00→23:54)
[2018-12-20] MEDS: Hydrocortisone Sodium Succ 100 MG/2 ML VIAL IVP SCH ×3 (09:02→23:55)
[2018-12-20] MEDS: MetroNIDAZOLE 500 MG/100 ML 500 MG/100 ML BAG IVPB SCH ×3 (09:02→23:55)
[2018-12-20] MEDS: OXYCODONE Oral CONC 10 MG/0.5 ML ORAL.SYG SL PRN ×2 (09:07→18:12)
[2018-12-20] MEDS: Chlorhexidine Rinse 15 ML MOUTHWASH MM SCH ×2 (09:08→19:45)
[2018-12-20] MEDS: Aspirin 81 MG TAB.CHEW PO SCH (09:08)
[2018-12-20] MEDS: Pantoprazole 40 MG VIAL IVP SCH (09:08)
[2018-12-20] MEDS: clonazePAM 1 MG TABLET PO PRN ×2 (09:08→18:12)
[2018-12-20] MEDS: Dexmedetomidine HCl 400 MCG/100 ML MLS IVC SCH ×2 (09:16→18:13)
[2018-12-20 12:21] LABS: Hematocrit 38.6 % (35.3-44.9); Hemoglobin 12.9 g/dL (11.5-15.4); Immature Granulocytes % 0.8 % (0-4); Lymphocytes # 1.2 K/mcL (0.6-4.6); Mean Corpuscular HGB Conc 33.4 g/dL (31.6-35.5); Mean Corpuscular Hemoglobin 31.7 pg (28.0-33.3); Mean Corpuscular Volume 94.8 fL (83.0-100.0); Mean Platelet Volume 9.2 fL (9.4-12.4); Monocytes # 0.4 K/mcL (0.0-1.3); Monocytes % 5.6 %; Neutrophils # 6.2 K/mcL (1.6-8.9); Platelet Count 217 K/mcL (140-400); Red Blood Count 4.07 M/mcL (3.82-4.97); Red Cell Distribution Width 11.8 % (11.5-14.5); Segmented Neutrophils % 78.6 %
[2018-12-20 12:24] LABS: VBG Ionized Calcium 1.14 mmol/L (1.15-1.35)
[2018-12-20 12:40] LABS: Magnesium 1.6 mg/dL (1.6-2.6); Phosphorous 3.2 mg/dL (2.7-4.5)
[2018-12-20 12:41] LABS: BUN/Creatinine Ratio 41 (6-26); Blood Urea Nitrogen 28 mg/dL (8-23); Calcium 9.1 mg/dL (8.6-10.3); Carbon Dioxide 38 mEq/L (23-29); Chloride 93 mEq/L (98-107); Glucose 163 mg/dL (70-105); Osmolality,Calculated 293 (280-300); Potassium 2.8 mEq/L (3.5-5.1); Sodium 137 mEq/L (136-145); eGFR For Non-African Americans > 60 (> 60)
[2018-12-20 18:38] LABS: Magnesium 1.9 mg/dL (1.6-2.6); Potassium 2.9 mEq/L (3.5-5.1)
[2018-12-20] MEDS: risperiDONE 1 MG TABLET PO SCH (19:45)
--- NOTE | 2018-12-20 21:02 | Pulmonology Progress Note ---
<Marley Rios - Last Filed: 12/20/18 21:22> Date of Encounter: 12/20/18 Time of Encounter: 11:00 Assessment and Plan (1) Acute and chronic respiratory failure with hypoxia Current Visit: Yes Status: Acute Improving, comfortable and denies shortness of breath on 2 L nasal cannula. Likely secondary to lung carcinoma, COPD and CHF exacerbations with pneumonia. Chest CT revealed significant right upper lobe postobstructive collapse secondary to lung carcinoma with metastases as well as right sided effusion. Antibiotic coverage with Flagyl and cefepime Continue DuoNeb and Symbicort Incentive spirometry Continue respiratory support as needed. (2) COPD exacerbation Current Visit: Yes Status: Acute History of COPD, not on home oxygen Current smoker Contributed to acute on chronic respiratory failure Denies any shortness of breath, or cough. Mild wheezing on exam. On hydrocortisone as well for adrenal insufficiency Continue cefepime, Flagyl, DuoNeb and Symbicort with incentive spirometry (3) Diastolic CHF Current Visit: Yes Status: Acute History of CHF, diastolic Echo revealed ejection fraction 60% with mild left ventricular diastolic dysfunction and no evidence of pulmonary hypertension I&O reveals +1.7 L Continue Lasix twice a day Strict I and O Qualifiers: Heart failure chronicity: acute on chronic Qualified Code(s): I50.33 - Acute on chronic diastolic (congestive) heart failure (4) Pneumonia involving right lung Current Visit: Yes Status: Acute Most recent chest x-ray showed increasing airspace opacity in right upper lobe which was suspicious for pneumonia Chest CT revealed right upper lobe postobstructive collapse, right suprahilar mass increase in size, pulmonary nodules consistent with metastatic disease, right pleural effusion, small left pleural effusion and small pericardial effusion Likely contributing to COPD exacerbation and respiratory failure, has clinically improved and decreased oxygen requirement Continue Flagyl and cefepime for antibiotic coverage Qualifiers: Pneumonia type: due to unspecified organism Lung location: upper lobe of lung Qualified Code(s): J18.1 - Lobar pneumonia, unspecified organism (5) Metastatic lung carcinoma Current Visit: Yes Status: Acute 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 Oncologist is Dr. Clark at [facility]. Oncology recommendations are possible palliative radiation prior to chemotherapy or debulking. Qualifiers: Laterality: right Qualified Code(s): C78.01 - Secondary malignant neoplasm of right lung (6) Adrenal insufficiency Current Visit: Yes Status: Acute Patient had a random cortisol level of 4.9 Blood pressures continue to improve. Continue hydrocortisone 100 mg every 8hr (7) Cholelithiasis Current Visit: Yes Status: Acute Patient presented with abdominal pain, CT abdomen showed cholelithiasis with borderline gallbladder wall thickening will continue medical management, pain medication, and low-fat diet Qualifiers: Cholelithiasis location: gallbladder Qualified Code(s): K80.00 - Calculus of gallbladder with acute cholecystitis without obstruction (8) CAD in mechoopda artery Current Visit: Yes Status: Chronic History of coronary artery disease Continue aspirin and simvastatin (9) Hypokalemia Current Visit: No Status: Acute Potassium has decreased over admission Electrolyte protocol Continue to monitor (10) Diabetes mellitus Current Visit: Yes Status: Acute History of type 2 diabetes Continue low-dose sliding scale Continue to monitor Qualifiers: Diabetes mellitus type: type 2 Diabetes mellitus terminal gauger insulin use: without terminal gauger use Diabetes mellitus complication status: with unspecified complications Qualified Code(s): E11.8 - Type 2 diabetes mellitus with unspec ified complications (11) DVT prophylaxis Current Visit: Yes Status: Acute SQ heparin Subjective Principal diagnosis: Acute and chronic respiratory failure Interval history: Patient presented as transfer from [place] due to concern for cholelithiasis after having symptoms for the past 5 days. She has past medical history of squamous cell lung cancer cancer, COPD, CAD,diabetes, hypertension, peripheral vascular disease, multiple cerebral infarctions, anxiety, depression, bipolar disorder, panic disorder, current smoker. Follows with oncology, Dr. Clark, lung cancer is newly diagnosed and treatment was planned however is on hold pending this admission. Surgery was consulted for acute cholelithiasis, they consulted cardiology for a pre-operative cardiac assessment, as she has history of CAD with multiple comorbidities. patient became hypotensive and transferred to the ICU. Random cortisol was found to be low, 4.5 and started on hydrocortisone 100 mg every 8 hours for adrenal insufficiency.rapid response was called by staff, found to be in respiratory response with saturations in the 70s heart rate 120s E BP 100/60. Patient was intubated in order to protect airway. Liver ultrasound revealed cholelithiasis with as well as increased echogenicity of the liver compatible with steatosis. Echocardiogram revealed LVEF 60% mild left ventricular diastolic dysfunction and no evidence of pulmonary hypertension. CT chest revealed significantly increased right lower lobe postobstructive collapse as well as increase in size of right suprahilar mass and numerous noncalcified bilateral pulmonary nodules which are consistent with metastatic disease as well as new moderate right pleural effusion and small left pleural effusion and small pericardial effusion. Chest x-ray yesterday revealed no significant change in right upper lobe airspace opacity or atelectasis and the right pleural effusion. 2-D, the patient is clinically improved. She admits to continuing diffuse abdominal pain. She is alert and oriented 3, and eating lunch. She is resting comfortably and denies any fever, chills, nausea, vomiting, chest pain, shortness of breath, dysuria, calf pain. Objective PUL Vital signs: Last Vital Signs Temp 97.6 F 12/20/18 20:00 Pulse 74 12/20/18 20:00 Resp 20 12/20/18 20:00 BP 129/98 12/20/18 20:00 Pulse Ox 96 12/20/18 20:00 Gen.: Vitals noted. No acute distress. AAOx3, resting comfortably in bed. HEENT: PERRL/EOMI, oropharynx clear, Normocephalic, atraumatic, MMM Neck: Supple. No adenopathy. Trachea midline Cardiac: RRR, no murmur, +S1/S2, No BLE edema. Pulses 2+, capillary refill less than 2 seconds Pulmonary: Mild wheezing bilaterally, no rales or rhonchi, equal chest expansion, unlabored breathing Abdomen: soft, mildly distended, diffusely tender to palpation, BS noted, no guarding, no palpable HSM Back: Nontender throughout. Skin: warm and dry, no visible lesions. MSK: ROM intact, no joint swelling noted, gait no assessed while in bed. Non tender calf or clubbing Neuro: A&Ox3, moves all extremities, no focal deficits, sensation intact, CN? Psych: Appropriate mood and behavior, AOx3 Results - Laboratory Findings CBC and BMP: 12/20/18 12:08 12/20/18 18:00 ABG ABG pH 7.45 pH Units (7.32-7.45) 12/19/18 05:32 ABG pCO2 47 mmHg (35-45) H 12/19/18 05:32 ABG pO2 69 mmHg (85-104) L 12/19/18 05:32 ABG O2 Saturation 94 % (95-98) L 12/19/18 05:32 PT/INR, D-dimer PT 12.1 Seconds (9.4-12.1) 12/16/18 16:09 Abnormal lab findings: Abnormal lab results MPV 9.2 fL (9.4-12.4) L 12/20/18 12:08 APTT 45.7 Seconds (26.0-36.0) H 12/14/18 21:20 ABG pCO2 47 mmHg (35-45) H 12/19/18 05:32 ABG pO2 69 mmHg (85-104) L 12/19/18 05:32 ABG HCO3 32 mEq/L (21-27) H 12/19/18 05:32 ABG Total CO2 34 mEq/L (20-26) H 12/19/18 05:32 ABG O2 Saturation 94 % (95-98) L 12/19/18 05:32 ABG Base Excess 7 mEq/L (-2 to 3) H 12/19/18 05:32 Potassium 2.9 mEq/L (3.5-5.1) L 12/20/18 18:00 Chloride 93 mEq/L (98-107) L 12/20/18 12:08 Carbon Dioxide 38 mEq/L (23-29) H 12/20/18 12:08 BUN 28 mg/dL (8-23) H 12/20/18 12:08 BUN/Creatinine Ratio 41 (6-26) H 12/20/18 12:08 Glucose 163 mg/dL (70-105) H 12/20/18 12:08 POC Glucose 183 mg/dL (70-99) H 12/20/18 20:06 Venous Ioniz Calcium 1.14 mmol/L (1.15-1.35) L 12/20/18 12:21 Troponin I 0.07 ng/mL (< 0.04) H* 12/15/18 03:32 B-Natriuretic Peptide 631 pg/mL (Less than 100) H 12/16/18 18:55 Serum Total Protein 4.8 g/dL (6.4-8.9) L 12/15/18 03:32 Albumin 2.9 g/dL (3.5-5.7) L 12/15/18 03:32 Globulin 1.9 g/dL (2.4-3.5) L 12/15/18 03:32 TSH 0.310 mcIU/mL (0.340-5.600) L 12/15/18 15:03 Urine Clarity Cloudy (Clear) A 12/16/18 21:30 Urine Protein 100 mg/dL (Neg-Trace) H 12/16/18 21:30 Urine Ketones 15 mg/dL (Negative) H 12/16/18 21:30 Urine Blood Large (Negative) H 12/16/18 21:30 Ur Leukocyte Esterase Trace (Negative) H 12/16/18 21:30 Urine Microscopic RBC TNTC per hpf (0-3) H 12/16/18 21:30 Urine Microscopic WBC 5-15 per hpf (0-3) H 12/16/18 21:30 Ur Squamous Epith Cells Many per lpf (None-Few) H 12/16/18 21:30 - Microbiology Findings Microbiology Findings: Microbiology, Last 48 Hours 12/15/18 15:00 Blood Culture - Final Peripheral Venipuncture No growth. Final report. 12/15/18 15:03 Blood Culture - Final Peripheral Venipuncture No growth. Final report. - Clinical Findings Intake & Output: Intake & Output 12/20/18 12/20/18 12/20/18 07:59 15:59 23:59 Intake Total 450 / 450 790 / 790 1194 / 1194 Output Total 1150 / 1150 1500 / 1500 2150 / 2150 Balance -700 / -700 -710 / -710 -956 / -956 Weight 87.4 kg Consult Discharge Plan - Plan Referrals: Maisha Ruth CNP [Primary Care Provider] - 12/24/18 1:20 pm <Tereza Villalba - Last Filed: 12/21/18 01:14> Date of Encounter: 12/21/18 Assessment and Plan (1) Cholelithiasis Current Visit: Yes Status: Acute Qualifiers: Cholelithiasis location: gallbladder Qualified Code(s): K80.00 - Calculus of gallbladder with acute cholecystitis without obstruction (2) Hypotension Current Visit: Yes Status: Acute Qualifiers: Hypotension type: unspecified hypotension type Qualified Code(s): I95.9 - Hypotension, unspecified (3) Adrenal insufficiency Current Visit: Yes Status: Acute Objective PUL Vital signs: Last Vital Signs Temp 97.9 F 12/20/18 23:34 Pulse 67 12/21/18 01:00 Resp 16 12/21/18 01:00 BP 122/77 12/21/18 01:00 Pulse Ox 91 12/21/18 01:00 Results - Laboratory Findings CBC and BMP: 12/20/18 12:08 12/20/18 18:00 ABG ABG pH 7.45 pH Units (7.32-7.45) 12/19/18 05:32 ABG pCO2 47 mmHg (35-45) H 12/19/18 05:32 ABG pO2 69 mmHg (85-104) L 12/19/18 05:32 ABG O2 Saturation 94 % (95-98) L 12/19/18 05:32 PT/INR, D-dimer PT 12.1 Seconds (9.4-12.1) 12/16/18 16:09 Abnormal lab findings: Abnormal lab results MPV 9.2 fL (9.4-12.4) L 12/20/18 12:08 APTT 45.7 Seconds (26.0-36.0) H 12/14/18 21:20 ABG pCO2 47 mmHg (35-45) H 12/19/18 05:32 ABG pO2 69 mmHg (85-104) L 12/19/18 05:32 ABG HCO3 32 mEq/L (21-27) H 12/19/18 05:32 ABG Total CO2 34 mEq/L (20-26) H 12/19/18 05:32 ABG O2 Saturation 94 % (95-98) L 12/19/18 05:32 ABG Base Excess 7 mEq/L (-2 to 3) H 12/19/18 05:32 Potassium 2.9 mEq/L (3.5-5.1) L 12/20/18 18:00 Chloride 93 mEq/L (98-107) L 12/20/18 12:08 Carbon Dioxide 38 mEq/L (23-29) H 12/20/18 12:08 BUN 28 mg/dL (8-23) H 12/20/18 12:08 BUN/Creatinine Ratio 41 (6-26) H 12/20/18 12:08 Glucose 163 mg/dL (70-105) H 12/20/18 12:08 POC Glucose 183 mg/dL (70-99) H 12/20/18 20:06 Venous Ioniz Calcium 1.14 mmol/L (1.15-1.35) L 12/20/18 12:21 Troponin I 0.07 ng/mL (< 0.04) H* 12/15/18 03:32 B-Natriuretic Peptide 631 pg/mL (Less than 100) H 12/16/18 18:55 Serum Total Protein 4.8 g/dL (6.4-8.9) L 12/15/18 03:32 Albumin 2.9 g/dL (3.5-5.7) L 12/15/18 03:32 Globulin 1.9 g/dL (2.4-3.5) L 12/15/18 03:32 TSH 0.310 mcIU/mL (0.340-5.600) L 12/15/18 15:03 Urine Clarity Cloudy (Clear) A 12/16/18 21:30 Urine Protein 100 mg/dL (Neg-Trace) H 12/16/18 21:30 Urine Ketones 15 mg/dL (Negative) H 12/16/18 21:30 Urine Blood Large (Negative) H 12/16/18 21:30 Ur Leukocyte Esterase Trace (Negative) H 12/16/18 21:30 Urine Microscopic RBC TNTC per hpf (0-3) H 12/16/18 21:30 Urine Microscopic WBC 5-15 per hpf (0-3) H 12/16/18 21:30 Ur Squamous Epith Cells Many per lpf (None-Few) H 12/16/18 21:30 - Microbiology Findings Microbiology Findings: Microbiology, Last 48 Hours 12/15/18 15:00 Blood Culture - Final Peripheral Venipuncture No growth. Final report. 12/15/18 15:03 Blood Culture - Final Peripheral Venipuncture No growth. Final report. - Clinical Findings Intake & Output: Intake & Output 12/20/18 12/20/18 12/21/18 15:59 23:59 07:59 Intake Total 790 / 790 1298 / 1298 Output Total 1500 / 1500 2700 / 2700 Balance -710 / -710 -1402 / -1402 Weight 85.5 kg - Attending Attestation - Attending Attestation - Attending Attestation I saw and evaluated this patient and my medical decision-making was reviewed with the Resident Physician. I agree with the documented findings, disposition and treatment plan as described except to the extent set forth below. We independently had [id number] contact with the patient I spent 40 minutes of Critical Care time with this patient. It involved decision making of high complexity to assess, manipulate, and support vital organ system failure and/or to prevent further life threatening deterioration of the patient's condition. The time involved in the performance of separately reportable procedures was not counted toward critical care time. Patient seen and examined at bedside Labs, radiology, chart personally reviewed. Management was reviewed during multidisciplinary critical care rounds. INSTRUCTOR DECORATING: Patient has baseline anxiety disorder on chronic benzodiazepine patient now was intubated note to give sedation with opioids and benzodiazepine. As patient has chronic benzodiazepine dependence patient was altered developed acute on chronic hypoxic hypercarbic respiratory failure patient was intubated for that reason well I was doing in the central line patient was awake completely fo llowing commands I doubt she has central nervous system issue like stroke will closely follow with neuro checks 12/17 Patient is intubated with minimal sedation patient is following commands in my exam 12/18 Patient when liberated from the sedation follows commands she interacts at the same time she becomes anxious to start her on prn Ativan her home regimen 12/19 Patient is more awake less agitated on Klonopin and precedex will continue this will try to extubate her 12/20 Patient is awake having breakfast following commands Pulm: Patient is hypoxic and hypercarbic respiratory failure on this the tidal volume and the ventilator settings to have acceptable oxygenation and ventilation. The worsening VQ mismatch is multifactorial secondary to COPD exacerbation acute on chronic diastolic heart failure complicated by fluid resuscitation as patient presented with hypotension. Right worsening infiltrates the side of her Squamous cell ca of lung will do Bronchoscopy airway exam as patient is waiting for chemotherapy for her lung cancer. 12/17 Patient has acceptable oxygenation and ventialtion , i did the Bronchoscopy with airway exam i could not find the Right lower lobe fungating mass the Right upper lobe is completely occluded after that i did a CT scan which showed worsening RUL post obstructive collapse will discuss with for possible stenting or if she gets extubated she will need immediate radiotherapy 12/[address] scan enlarging RUL Squamous cell ca not amenable from stenting after extubation patient will need radiotherapy 12/19 To extubate today patient did well on her SBT to continue diuresis as tolerated . If she is stable over 48 hrs over the weekend might consider sending her for possible radiotherapy there will be logistical issues taking her safely critical care transport . 12/20 Patient has acceptable oxygenation and ventilation to continue diuresis will need radiotherapy as soon as possible Cards: He presented with hypotension echo showed diastolic dysfunction with normal ejection fraction this hypertension most likely due to adrenal insu fficiency patient blood pressure responded well to IV hydrocortisone. 12/18 To continue diuresis as tolerated. 12/19 To continue diuresis as tolerated 12/20 To continue diuresis as tolerated FEN-GI: advance diet as tolerated . Patient choledocolithiasis surgery consulted conservative treatment is normal Renal: Labs and output reviewed ID: worsening right sided possible obstructive collapse/pneumonia to cover with broad spectrum antibiotics to descalate according to response Heme/Onc: Patient has recently diagnosed squamous cell ca waiting to start Chemotherapy and radiotherapy . Since the mass enlarging might need radiotherapy in urgent basis Endo: Patient has adrenal sufficiency to continue Hydrocortisone 100mg IV 8hrly patient hemodynamically stable will start reducing the dose Integ/MSK: Skin Care per routine ICU Nursing Protocol to prevent ulcers. Lines: All lines examined without evidence of infection : Dispo: If she is stable tomorrow we can shift to medical step down CODE:Full Code
[2018-12-21] MEDS: FentaNYL (PF) 2,500 MCG in EMPTY BAG 1 EACH IVC SCH (00:06)
[2018-12-21] MEDS: Artificial Tears SOLN 15 ML BOTTLE BOTH EYES SCH ×6 (00:06→22:50)
[2018-12-21] MEDS: Ipratropium/Albuterol Neb 3 ML IH SCH ×6 (00:27→20:33)
[2018-12-21 01:35] LABS: Magnesium 2.4 mg/dL (1.6-2.6); Potassium 3.3 mEq/L (3.5-5.1)
[2018-12-21 05:07] LABS: Basophils % 0.2 %; Hematocrit 38.3 % (35.3-44.9); Hemoglobin 12.5 g/dL (11.5-15.4); Immature Granulocytes % 0.9 % (0-4); Lymphocytes % 16.1 %; Mean Corpuscular HGB Conc 32.6 g/dL (31.6-35.5); Mean Corpuscular Hemoglobin 31.2 pg (28.0-33.3); Mean Corpuscular Volume 95.5 fL (83.0-100.0); Mean Platelet Volume 9.6 fL (9.4-12.4); Monocytes # 0.4 K/mcL (0.0-1.3); Monocytes % 6.1 %; Neutrophils # 4.9 K/mcL (1.6-8.9); Platelet Count 217 K/mcL (140-400); Red Blood Count 4.01 M/mcL (3.82-4.97); Red Cell Distribution Width 11.6 % (11.5-14.5); Segmented Neutrophils % 76.7 %
[2018-12-21 05:09] LABS: BUN/Creatinine Ratio 39 (6-26); Blood Urea Nitrogen 24 mg/dL (8-23); Calcium 8.9 mg/dL (8.6-10.3); Carbon Dioxide 37 mEq/L (23-29); Chloride 98 mEq/L (98-107); Glucose 150 mg/dL (70-105); Magnesium 2.2 mg/dL (1.6-2.6); Osmolality,Calculated 297 (280-300); Phosphorous 3.2 mg/dL (2.7-4.5); Potassium 3.8 mEq/L (3.5-5.1); Sodium 140 mEq/L (136-145); eGFR For Non-African Americans > 60 (> 60)
[2018-12-21] MEDS: *HR* Heparin 5,000 UNIT/ML VIAL SQ SCH ×3 (05:17→22:49)
[2018-12-21] MEDS: MetroNIDAZOLE 500 MG/100 ML 500 MG/100 ML BAG IVPB SCH ×2 (07:28→16:23)
[2018-12-21] MEDS: Furosemide 40 MG/4 ML VIAL IVP SCH (07:29)
[2018-12-21] MEDS: Cefepime HCl 1,000 MG in Water for inj. (sterile) 20 ML 10 ML IVP SCH ×2 (07:29→16:24)
[2018-12-21] MEDS: Hydrocortisone Sodium Succ 100 MG/2 ML VIAL IVP SCH (07:30)
[2018-12-21] MEDS: Insulin LISPRO 300 UNITS/3 ML VIAL SQ SCH ×4 (07:45→22:45)
--- NOTE | 2018-12-21 07:58 | Pulmonology Progress Note ---
<Naye Ruth - Last Filed: 12/21/18 13:35> Date of Encounter: 12/21/18 Time of Encounter: 07:58 Assessment and Plan (1) Acute and chronic respiratory failure with hypoxia Current Visit: Yes Status: Acute Improving. Tolerating 2L supplemental oxygen well. -Most likely secondary to lung carcinoma, COPD, CHF exacerbation, pneumonia -CT chest revealed significantly increased right lower lobe postobstructive collapse as well as increase in size of right suprahilar mass and numerous noncalcified bilateral pulmonary nodules which are consistent with metastatic disease as well as new moderate right pleural effusion and small left pleural e ffusion and small pericardial effusion. -Chest x-ray demonstrating right upper lobe opacity/atelectasis and right pleural effusion -afebrile, WBC 6.4 Plan: -continue cefepime day 7, and Flagyl day 6 -continue supplemental oxygen -duonebs prn -incentive spirometry -continue Symbicort -Lasix stopped (2) Cholelithiasis Current Visit: Yes Status: Acute Patient was initially admitted for symptoms of Cholelithiasis that was demons trated on abdominal CT. Abdominal CT demonstrating cholelithiasis with borderline gallbladder wall t hickening. Patient denies abdominal pain at this time. She denies nausea and vomiting. -Dr. Patricia of general Surgery had been consulted and recommended cholecystectomy, however since she had become hemodynamically unstable it was recommended to continue medical management with pain medication and low-fat diet. Cardiology had been consulted for cardiac clearance. -Zofran PRN Qualifiers: Cholelithiasis location: gallbladder Qualified Code(s): K80.00 - Calculus of gallbladder with acute cholecystitis without obstruction (3) COPD exacerbation Current Visit: Yes Status: Acute COPD exacerbation. She is a current smoker. Continue supplemental oxygen continue antibiotics as above (4) Hypokalemia Current Visit: No Status: Acute Hypokalemia, potassium 3.3 magnesium 2.2 -will continue to supplement potassium today. Electrolyte protocol. -Will continue to monitor potassium and magnesium (5) Metastatic lung carcinoma Current Visit: Yes Status: Acute Recent diagnosis of metastatic squamous cell lung cancer to the lymph nodes. Patients oncologist is Dr. Clark of [facility]. Current recommendations are possible palliative radiation prior to chemotherapy or debulking. Qualifiers: Laterality: right Qualified Code(s): C78.01 - Secondary malignant neoplasm of right lung (6) Diabetes mellitus type 2 with complications Current Visit: No Status: Chronic History of diabetes. Glucose stable -continue diabetic diet, Accu checks -continue low-dose sliding scale insulin Qualifiers: Diabetes mellitus fpc insulin use: without intermediate card tender use Qualified Code(s): E11.8 - Type 2 diabetes mellitus with unspecified complications (7) Tobacco abuse Current Visit: No Status: Acute Current smoker. Discussed smoking cessation. (8) Adrenal insufficiency Current Visit: Yes Status: Acute Concern for adrenal insufficiency with a random cortisol level of 4.9 blood pressures are stable will stop hydrocortisone (9) CAD in [place] artery Current Visit: Yes Status: Chronic History of known CAD. Patient denies chest pain. -Continue aspirin and simvastatin (10) Diastolic CHF Current Visit: Yes Status: Acute History of heart failure with preserved ejection fraction. Echo revealed ejection fraction 60% with mild left ventricular diastolic dysfunction and no evidence of pulmonary hypertension I&O: [id number] Plan: -patient has diuresed well -continue to monitor I&O -Lasix stopped today Qualifiers: Heart failure chronicity: acute on chronic Qualified Code(s): I50.33 - Acute on chronic diastolic (congestive) heart failure (11) DVT prophylaxis Current Visit: Yes Status: Acute Heparin SQ Subjective Principal diagnosis: Acute and chronic respiratory failure Interval history: 63-year-old female with past medical history of metastatic squamous cell lung carcinoma, COPD, CAD, diabetes, peripheral vascular disease who presented to [facility] as a transfer from [place] due to concerns for cholelithiasis. She follows with the oncologist Dr. Clark for this new diagnosis however treatment is on hold due to this admission. Dr. Patricia of general surgery was consulted for the acute cholelithiasis, however she is not a candidate for surgery at this time due to her clinical status. Cardiology had been consulted for preop cardiac assessment. Patient was transferred to ICU and intubated on mechanical ventilation due to acute respiratory failure. Patient was later extubated. Today patient is alert and oriented and in no acute distress. She is tolerating supplemental oxygen well which is her baseline. She only complains of occasionally feeling hot. She reports much improved dyspnea. She denies fever, chills, chest pain, cough, nausea, abdominal pain. She is to be transferred to step down unit today. Objective PUL Vital signs: Last Vital Signs Temp 96.9 F L 01/28/19 04:00 Pulse 76 12/21/18 07:00 Resp 16 12/21/18 07:00 BP 119/81 12/21/18 07:00 Pulse Ox 92 12/21/18 07:00 General appearance: no acute distress, alert Eyes: nonicteric ENT: oropharynx moist Mallampati (class): 3 Neck: supple Effort: normal Auscultation: bilateral: clear, other (Poor air movement) Cardiovascular: regular rate and rhythm Gastrointestinal: normoactive bowel sounds, soft, non-tender, non-distended Integumentary: normal Extremities: no cyanosis, no edema Musculoskeletal: no deformities normal mental status, non-focal exam mood appropriate, affect normal Results - Laboratory Findings CBC and BMP: 12/21/18 04:37 12/21/18 11:15 ABG ABG pH 7.45 pH Units (7.32-7.45) 12/19/18 05:32 ABG pCO2 47 mmHg (35-45) H 12/19/18 05:32 ABG pO2 69 mmHg (85-104) L 12/19/18 05:32 ABG O2 Saturation 94 % (95-98) L 12/19/18 05:32 PT/INR, D-dimer PT 12.1 Seconds (9.4-12.1) 12/16/18 16:09 Abnormal lab findings: Abnormal lab results APTT 45.7 Seconds (26.0-36.0) H 12/14/18 21:20 ABG pCO2 47 mmHg (35-45) H 12/19/18 05:32 ABG pO2 69 mmHg (85-104) L 12/19/18 05:32 ABG HCO3 32 mEq/L (21-27) H 12/19/18 05:32 ABG Total CO2 34 mEq/L (20-26) H 12/19/18 05:32 ABG O2 Saturation 94 % (95-98) L 12/19/18 05:32 ABG Base Excess 7 mEq/L (-2 to 3) H 12/19/18 05:32 Carbon Dioxide 37 mEq/L (23-29) H 12/21/18 04:37 BUN 24 mg/dL (8-23) H 12/21/18 04:37 BUN/Creatinine Ratio 39 (6-26) H 12/21/18 04:37 Glucose 150 mg/dL (70-105) H 12/21/18 04:37 POC Glucose 119 mg/dL (70-99) H 12/21/18 07:43 Venous Ioniz Calcium 1.14 mmol/L (1.15-1.35) L 12/20/18 12:21 Troponin I 0.07 ng/mL (< 0.04) H* 12/15/18 03:32 B-Natriuretic Peptide 631 pg/mL (Less than 100) H 12/16/18 18:55 Serum Total Protein 4.8 g/dL (6.4-8.9) L 12/15/18 03:32 Albumin 2.9 g/dL (3.5-5.7) L 12/15/18 03:32 Globulin 1.9 g/dL (2.4-3.5) L 12/15/18 03:32 TSH 0.310 mcIU/mL (0.340-5.600) L 12/15/18 15:03 Urine Clarity Cloudy (Clear) A 12/16/18 21:30 Urine Protein 100 mg/dL (Neg-Trace) H 12/16/18 21:30 Urine Ketones 15 mg/dL (Negative) H 12/16/18 21:30 Urine Blood Large (Negative) H 12/16/18 21:30 Ur Leukocyte Esterase Trace (Negative) H 12/16/18 21:30 Urine Microscopic RBC TNTC per hpf (0-3) H 12/16/18 21:30 Urine Microscopic WBC 5-15 per hpf (0-3) H 12/16/18 21:30 Ur Squamous Epith Cells Many per lpf (None-Few) H 12/16/18 21:30 - Microbiology Findings Microbiology Findings: Microbiology, Last 48 Hours 12/15/18 15:00 Blood Culture - Final Peripheral Venipuncture No growth. Final report. 12/15/18 15:03 Blood Culture - Final Peripheral Venipuncture No growth. Final report. - Clinical Findings Intake & Output: Intake & Output 12/20/18 12/20/18 12/21/18 15:59 23:59 07:59 Intake Total 790 / 790 1298 / 1298 710 / 710 Output Total 1500 / 1500 2700 / 2700 900 / 900 Balance -710 / -710 -1402 / -1402 -190 / -190 Weight 85.5 kg Consult Discharge Plan - Plan Referrals: Maisha Ruth, ONLINE MEDIA DIRECTOR [Primary Care Provider] - 12/24/18 1:20 pm <Vj Simons - Last Filed: 12/21/18 16:24> Date of Encounter: 12/21/18 Objective PUL Vital signs: Last Vital Signs Temp 98.3 F 12/21/18 12:15 Pulse 99 12/21/18 13:00 Resp 16 12/21/18 13:00 BP 117/71 12/21/18 13:00 Pulse Ox 91 12/21/18 13:00 Results - Laboratory Findings CBC and BMP: 12/21/18 04:37 12/21/18 11:15 ABG ABG pH 7.45 pH Units (7.32-7.45) 12/19/18 05:32 ABG pCO2 47 mmHg (35-45) H 12/19/18 05:32 ABG pO2 69 mmHg (85-104) L 12/19/18 05:32 ABG O2 Saturation 94 % (95-98) L 12/19/18 05:32 PT/INR, D-dimer PT 12.1 Seconds (9.4-12.1) 12/16/18 16:09 Abnormal lab findings: Abnormal lab results APTT 45.7 Seconds (26.0-36.0) H 12/14/18 21:20 ABG pCO2 47 mmHg (35-45) H 12/19/18 05:32 ABG pO2 69 mmHg (85-104) L 12/19/18 05:32 ABG HCO3 32 mEq/L (21-27) H 12/19/18 05:32 ABG Total CO2 34 mEq/L (20-26) H 12/19/18 05:32 ABG O2 Saturation 94 % (95-98) L 12/19/18 05:32 ABG Base Excess 7 mEq/L (-2 to 3) H 12/19/18 05:32 Potassium 3.3 mEq/L (3.5-5.1) L 12/21/18 11:15 Carbon Dioxide 37 mEq/L (23-29) H 12/21/18 04:37 BUN 24 mg/dL (8-23) H 12/21/18 04:37 BUN/Creatinine Ratio 39 (6-26) H 12/21/18 04:37 Glucose 150 mg/dL (70-105) H 12/21/18 04:37 POC Glucose 212 mg/dL (70-99) H 12/21/18 11:56 Venous Ioniz Calcium 1.14 mmol/L (1.15-1.35) L 12/20/18 12:21 Troponin I 0.07 ng/mL (< 0.04) H* 12/15/18 03:32 B-Natriuretic Peptide 631 pg/mL (Less than 100) H 12/16/18 18:55 Serum Total Protein 4.8 g/dL (6.4-8.9) L 12/15/18 03:32 Albumin 2.9 g/dL (3.5-5.7) L 12/15/18 03:32 Globulin 1.9 g/dL (2.4-3.5) L 12/15/18 03:32 TSH 0.310 mcIU/mL (0.340-5.600) L 12/15/18 15:03 Urine Clarity Cloudy (Clear) A 12/16/18 21:30 Urine Protein 100 mg/dL (Neg-Trace) H 12/16/18 21:30 Urine Ketones 15 mg/dL (Negative) H 12/16/18 21:30 Urine Blood Large (Negative) H 12/16/18 21:30 Ur Leukocyte Esterase Trace (Negative) H 12/16/18 21:30 Urine Microscopic RBC TNTC per hpf (0-3) H 12/16/18 21:30 Urine Microscopic WBC 5-15 per hpf (0-3) H 12/16/18 21:30 Ur Squamous Epith Cells Many per lpf (None-Few) H 12/16/18 21:30 - Microbiology Findings Microbiology Findings: Microbiology, Last 48 Hours 12/15/18 15:00 Blood Culture - Final Peripheral Venipuncture No growth. Final report. 12/15/18 15:03 Blood Culture - Final Peripheral Venipuncture No growth. Final report. - Clinical Findings Intake & Output: Intake & Output 12/21/18 12/21/18 12/21/18 07:59 15:59 23:59 Intake Total 720 / 720 485 / 485 100 / 100 Output Total 900 / 900 2275 / 2275 250 / 250 Balance -180 / -180 -1790 / -1790 -150 / -150 - Attending Attestation I examined this patient and my medical decision-making was reviewed with the Resident Physician. I agree with the documented findings, disposition and treatment plan as described except to the extent set forth below. Patient seen and examined. Labs, radiology, chart personally reviewed. 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 Patient with history of lung cancer and this is not an acute issue for her. Cardiovascular: stable GI: Nutrition per dietary and GI prophylaxis per routine. Patient is feeling much better, however she continued to have some abdominal discomfort and decision for surgery will defer it to the surgeon and the patient. Heme: DVT prophylaxis per routine ID: Continue antibiotics and plan to de-escalation Renal; urine out put and renal funtion reviewed Endorcine: blood glucose is monitored Lines: all lines checked and no evidence of infections Skin: skin care to prevent pressure ulcers per nursing routine care Patient hemodynamically stable and can be transferred to the floor.
[2018-12-21] MEDS: Aspirin 81 MG TAB.CHEW PO SCH (08:15)
[2018-12-21] MEDS: Pantoprazole 40 MG VIAL IVP SCH (08:16)
[2018-12-21] MEDS: clonazePAM 1 MG TABLET PO PRN ×2 (08:21→14:46)
[2018-12-21] MEDS: Budesonide/Formoterol 160/4.5 1 PUFF INH IH SCH ×2 (08:33→20:34)
[2018-12-21] MEDS: Chlorhexidine Rinse 15 ML MOUTHWASH MM SCH ×2 (10:48→22:47)
[2018-12-21] MEDS: OXYCODONE Oral CONC 10 MG/0.5 ML ORAL.SYG SL PRN ×3 (13:05→22:46)
[2018-12-21] MEDS ORDERED: Naloxone 0.4 MG/ML INJ IVP PRN (15:36)
[2018-12-21] MEDS ORDERED: Dextrose Gel 15 GM/37.5 ML TUBE PO PRN ×2 (15:36)
[2018-12-21] MEDS ORDERED: *HR* Dextrose 50 % in Water (Syg) 50 ML SYRINGE IVP PRN (15:36)
[2018-12-21] MEDS ORDERED: Artificial Tears SOLN 15 ML BOTTLE BOTH EYES PRN (15:36)
[2018-12-21] MEDS ORDERED: Potassium Phosphate 44 MEQ in 0.9 % Sodium Chloride 250 ML IVPB PRN (15:36)
[2018-12-21] MEDS ORDERED: Ondansetron 4 MG/2 ML VIAL IVP PRN (15:36)
--- NOTE | 2018-12-21 15:53 | Oncology Inp Progress Note ---
<Ashlee Payton L - Last Filed: 12/21/18 18:09> Date of Encounter: 12/21/18 Time of Encounter: 16:00 (1) Metastatic lung carcinoma Current Visit: Yes Status: Acute Assessment and plan: S/P bronchoscopy and bx of RUL lesion as well as bx of AP window adenopathy which revealed moderately differentiated squamous cell carcinoma PET imaging October 2018 show bilateral PET positive lung nodules consistent with Stage IV disease CT Chest 12/15/2018: 1. Significantly increased right upper lobe postobstructive collapse. 2. The right suprahilar mass appears increased in size although comparison is difficult due to the adjacent pulmonary collapse. 3. Numerous noncalcified bilateral pulmonary nodules are slightly increased in size, consistent with metastatic disease. 4. New moderate right pleural effusion. New small left pleural effusion. 5. Small pericardial effusion, slightly increased. Admitted for acute on chronic respiratory failure, etiology likely multifactorial in setting of known malignancy, COPD, pneumonia Intubated and transferred to ICU 12/15/18 for respiratory failure, hypotension in the setting of adrenal insufficiency. Bronchoscopy 12/17/18 notes occlusion of the RUL, secondary to complete obstructing mass Successfully extubated on 12/19/2017. Transitioned to stepdown today, O2 sat 91% on 2L Plan: Palliative chemotherapy initially planned as outpatient, however, patient may benefit from palliative radiotherapy to right upper lung prior to chemotherapy initiation given her post-obstructive symptoms Consider consult to radiation Qualifiers: Laterality: right Qualified Code(s): C78.01 - Secondary malignant neoplasm of right lung (2) Acute cholecystitis Current Visit: Yes Status: Acute Assessment and plan: Dr. Patricia of general Surgery had been consulted and recommended cholecystectomy, however following her ICU admission requiring ventilator support, it was recommended to continue medical management with pain medication and low-fat diet. Oncology: Subj Interval history: Resting in bed, denies pain, respiratory symptoms at baseline. Denies chest pain, fever, chills, focal weakness. Now on 3A after stepdown from ICU. Ambulating to bathroom with assistance. - Constitutional General appearance: cooperative, no acute distress, no febrile - Head Head exam: Present: atraumatic - ENT ENT exam: Present: mucous membranes moist, normal oropharynx - Respiratory Respiratory exam: Present: decreased breath sounds. Absent: respiratory distres s Additional comments: no acute distress but she does appear to have an increased respiratory effort at rest with some pursed lip breathing - Cardiovascular Cardiovascular exam: Present: RRR, +S1, +S2 - GI/Abdominal GI/Abdominal exam: Present: normal bowel sounds, soft. Absent: guarding, rebou nd, tenderness - Extremities Exam Extremities exam: Present: normal inspection. Absent: calf tenderness - Neurological Exam Neurological exam: Present: alert, oriented X3, no focal deficits, strengths equal and symetr throughout - Psychiatric Psychiatric exam: Present: normal affect, normal mood - Skin Skin exam: Present: dry, intact, normal color, warm Oncology: Obj Data - Labs CBC & Chem 7: 12/21/18 04:37 12/21/18 11:15 Consult Discharge Plan - Plan Referrals: Maisha Ruth ARTIFICIAL INSEMINATOR [Primary Care Provider] - 12/24/18 1:20 pm Inpatient Charges Provider: Dr. Mer Humphrey <KamDestinee S - Last Filed: 12/22/18 17:06> Date of Encounter: 12/21/18 Oncology: Obj Data - Labs CBC & Chem 7: 12/22/18 06:40 12/22/18 06:40 Inpatient Charges Provider: Dr. Mer Humphrey Follow up - Inpatient: [id number] - Attending Attestation I examined this patient and my medical decision-making was reviewed with the Advanced Practice Nurse. I agree with the documented findings, disposition and treatment plan as described except to the extent set forth below. 1. Stage IV squamous cell carcinoma. Right upper lobe mass causing right upper lobe atelectasis. She had a bronchoscopy on 12/17/2018 which showed lesion in the right upper lobe bronchus. According to the bronchoscopy report no lesion in the right lower lobe bronchus which was noticed in the past She also has bilateral lung nodules consistent with the M1 disease. We will send the material for PDL one next generation sequencing She has not started treatment yet. She has complete consolidation right upper lobe. She is symptomatic with respiratory distress. We will consult radiation oncology can open her up with palliative radiation. This will be followed by outpatient chemotherapy/immunotherapy
[2018-12-21] MEDS ORDERED: Gadolinium Contrast Agent (WT Based) IV PRN (19:17)
[2018-12-21] MEDS: risperiDONE 1 MG TABLET PO SCH (22:48)
[2018-12-22] MEDS: Ipratropium/Albuterol Neb 3 ML IH SCH ×6 (00:13→20:07)
[2018-12-22] MEDS: Cefepime HCl 1,000 MG in Water for inj. (sterile) 20 ML 10 ML IVP SCH ×3 (00:25→15:58)
[2018-12-22] MEDS: clonazePAM 1 MG TABLET PO PRN ×3 (00:25→13:21)
[2018-12-22] MEDS: MetroNIDAZOLE 500 MG/100 ML 500 MG/100 ML BAG IVPB SCH ×2 (00:27→07:33)
[2018-12-22] MEDS: Artificial Tears SOLN 15 ML BOTTLE BOTH EYES SCH ×4 (00:28→12:00)
[2018-12-22] MEDS: *HR* Heparin 5,000 UNIT/ML VIAL SQ SCH ×3 (06:06→20:39)
[2018-12-22 07:07] LABS: Basophils % 0.3 %; Eosinophils # 0.1 K/mcL (0.0-0.6); Eosinophils % 1.8 %; Hematocrit 39.2 % (35.3-44.9); Lymphocytes # 2.7 K/mcL (0.6-4.6); Lymphocytes % 36.7 %; Mean Corpuscular HGB Conc 33.2 g/dL (31.6-35.5); Mean Corpuscular Hemoglobin 31.7 pg (28.0-33.3); Mean Corpuscular Volume 95.6 fL (83.0-100.0); Mean Platelet Volume 9.5 fL (9.4-12.4); Monocytes # 0.6 K/mcL (0.0-1.3); Monocytes % 8.3 %; Neutrophils # 3.8 K/mcL (1.6-8.9); Platelet Count 218 K/mcL (140-400); Red Cell Distribution Width 11.8 % (11.5-14.5); Segmented Neutrophils % 51.9 %
[2018-12-22] MEDS: Budesonide/Formoterol 160/4.5 1 PUFF INH IH SCH ×2 (07:16→20:07)
[2018-12-22 07:21] LABS: BUN/Creatinine Ratio 31 (6-26); Blood Urea Nitrogen 21 mg/dL (8-23); Calcium 8.7 mg/dL (8.6-10.3); Carbon Dioxide 40 mEq/L (23-29); Chloride 99 mEq/L (98-107); Glucose 95 mg/dL (70-105); Osmolality,Calculated 299 (280-300); Potassium 3.1 mEq/L (3.5-5.1); Sodium 143 mEq/L (136-145); eGFR For Non-African Americans > 60 (> 60)
[2018-12-22] MEDS: Insulin LISPRO 300 UNITS/3 ML VIAL SQ SCH ×4 (07:30→20:36)
[2018-12-22] MEDS: Aspirin 81 MG TAB.CHEW PO SCH (07:34)
[2018-12-22] MEDS: Chlorhexidine Rinse 15 ML MOUTHWASH MM SCH ×2 (07:35→20:38)
[2018-12-22] MEDS ORDERED: Pantoprazole 40 MG VIAL IVP SCH (09:00)
[2018-12-22] MEDS: OXYCODONE Oral CONC 10 MG/0.5 ML ORAL.SYG SL PRN ×2 (13:11→17:38)
--- NOTE | 2018-12-22 14:43 | Oncology Inp Progress Note ---
<Destinee Humphrey S - Last Filed: 12/22/18 18:14> Date of Encounter: 12/22/18 Oncology: Obj Data - Labs CBC & Chem 7: 12/22/18 06:40 12/22/18 06:40 Consult Discharge Plan - Plan Referrals: Maisha Ruth, COMMISSARY AGENT [Primary Care Provider] - 12/24/18 1:20 pm Inpatient Charges Provider: Dr. Mer Humphrey Follow up - Inpatient: [id number] - Attending Attestation I examined this patient and my medical decision-making was reviewed with the Advanced Practice Nurse. I agree with the documented findings, disposition and treatment plan as described except to the extent set forth below. 1. Squamous cell carcinoma causing obstruction of right upper lobe bronchus and opacification. Evaluated by Dr. Murphy and she will be getting palliative radiation She still getting treatment for her pneumonia with cefepime and Flagyl. Overall she is breathing well on 2 L of oxygen by nasal cannula. We will continue to work on next generation sequencing and PDL one testing. There is problem with prior authorization. We will discuss systemic treatment as an outpatient <Ashlee Payton L - Last Filed: 12/23/18 10:27> Date of Encounter: 12/22/18 Time of Encounter: 13:30 (1) Metastatic lung carcinoma Current Visit: Yes Status: Inactive Assessment and plan: S/P bronchoscopy and bx of RUL lesion as well as bx of AP window adenopathy which revealed moderately differentiated squamous cell carcinoma PET imaging October 2018 show bilateral PET positive lung nodules consistent with Stage IV disease CT Chest 12/15/2018: 1. Significantly increased right upper lobe postobstructive collapse. 2. The right suprahilar mass appears increased in size although comparison is difficult due to the adjacent pulmonary collapse. 3. Numerous noncalcified bilateral pulmonary nodules are slightly increased in size, consistent with metastatic disease. 4. New moderate right pleural effusion. New small left pleural effusion. 5. Small pericardial effusion, slightly increased. Admitted for acute on chronic respiratory failure, etiology likely multifactorial in setting of known malignancy, COPD, pneumonia Intubated and transferred to ICU 12/15/18 for respiratory failure, hypotension in the setting of adrenal insufficiency. Bronchoscopy 12/17/18 notes occlusion of the RUL, secondary to complete obstructing mass Successfully extubated on 12/19/2017. Transitioned to stepdown yesterday, O2 sat 91% on 2L Brain MRI-no evidence of metastatic disease Plan: Continues with treatment for pneumonia---cefepime and Flagyl (day 6). Recommend 10 day course with respiratory failure requiring intubation and known malignancy. Repeat CXR Palliative chemotherapy initially planned as outpatient, however, patient may benefit from palliative radiotherapy to right upper lung prior to chemotherapy initiation given her post-obstructive symptoms Discussed with Dr. Murphy with radiation oncology, she is being transported to cancer center today for CT simulation, likely start radiation in next several days inpatient if still in house, may start as outpatient if discharged by this time Discussed radiation side effects which may include esophageal irritation including dysphagia/odynophagia, risk for radiation induced lung injury and fatigue Patient has transportation but will consult social work professor to see if she has any assistance available Plan to initiate systemic therapy as outpatient following palliative radiotherapy, NGS has been ordered but has not yet completed due to PA issues Qualifiers: Laterality: right Qualified Code(s): C78.01 - Secondary malignant neoplasm of right lung (2) Acute cholecystitis Current Visit: Yes Status: Inactive Assessment and plan: Dr. Patricia of general Surgery had been consulted and recommended cholec ystectomy, however following her ICU admission requiring ventilator support, it was recommended to continue medical management with pain medication and low-fat diet. Oncology: Subj Interval history: Patient just returning from brain MRI, eating lunch. Requesting pain medication for chronic back pain and klonopin. No acute events noted overnight. Tolerating 2L O2 well, no SOB currently but experiences exertional dyspnea and cough. No nausea, vomiting, fevers or chills. - Constitutional General appearance: cooperative, no acute distress, no febrile - Head Head exam: Present: atraumatic - ENT ENT exam: Present: mucous membranes moist, normal oropharynx - Respiratory Respiratory exam: Present: decreased breath sounds. Absent: respiratory distress - Cardiovascular Cardiovascular exam: Present: RRR, +S1, +S2 - GI/Abdominal GI/Abdominal exam: Present: normal bowel sounds, soft. Absent: guarding, rebound, tenderness - Extremities Exam Extremities exam: Present: normal inspection. Absent: calf tenderness - Neurological Exam Neurological exam: Present: alert, oriented X3, no focal deficits, strengths equal and symetr throughout - Psychiatric Psychiatric exam: Present: normal affect, normal mood - Skin Skin exam: Present: dry, intact, normal color, warm Oncology: Obj Data - Labs CBC & Chem 7: 01/30/19 05:25 12/23/18 05:25 Inpatient Charges Provider: Dr. Mer Humphrey
[2018-12-22] MEDS: metroNIDAZOLE 500 MG TABLET PO SCH ×2 (15:58→20:34)
--- NOTE | 2018-12-22 17:36 | Internal Med Progress Note ---
Hospitalist Progress Note - Encounter Date of Encounter: 12/22/18 Time of Encounter: 10:00 - Subjective Interval History: Seen and examined at bedside. Overall says she feels much better. Still weak and tired and short of breath that is worse with exertion but overall improved. She has a lot of questions regarding plan for chemotherapy and/or radiation. - Exam Vitals: Temp Pulse Resp BP Pulse Ox 98.4 F 74 16 108/73 95 12/22/18 15:42 12/22/18 15:42 12/22/18 16:36 12/22/18 15:42 12/22/18 16:36 Exam: General: In no acute distress. Conversant. Obese. Respiratory exam: diffuse rhonchi and scattered wheezing No crackles Cardiovascular exam: RRR, +S1, +S2. no murmur, gallop, rubs. GI/Abdominal exam: Non-tender, Non-distended, normal bowel sounds, soft, no peritoneal signs. Extremities exam: full ROM, Trace pedal edema, warm, pulses palpable in b/l lower extremities. no calf tenderness Neurological exam: CN II-XII intact, AO X3, no focal deficits. no pronater drift, facial droop, speech deficit Skin exam: No skin rash, ulcer, purpura or ecchymosis. - Assessment and Plan (1) Acute and chronic respiratory failure with hypoxia Current Visit: Yes Status: Acute Assessment and Plan: Intubated and transferred to ICU 12/15/18 for respiratory failure. Suspect multifactorial with known malignancy, COPD and pneumonia. CT showed significant ly increased right upper lobe postobstructive collapse. Bronchoscopy 12/17/18 with occlusion of the RUL, secondary to complete obstructing mass. Extubated 12/19/2018. Now adequately oxygenating on supplemental O2. Monitor resp status closely (2) Pneumonia Current Visit: Yes Status: Acute Assessment and Plan: CXR with RUL opacity/atelectasis and right pleural effusion. Cont cefepime and Flagyl (day 6). Recommend 10 day course with respiratory failure requiring intubation and known malignancy. Repeat CXR (3) COPD (chronic obstructive pulmonary disease) Current Visit: Yes Status: Acute Assessment and Plan: per hx. suspect exacerbation with wheezing and cough. Completed steroids and ICU. Continue IV ATB as noted above. Bronchodilators. (4) Metastatic lung carcinoma Current Visit: Yes Status: Inactive Assessment and Plan: s/p bronchoscopy and bx of RUL lesion as well as bx of AP window adenopathy wh ich revealed moderately differentiated squamous cell carcinoma. Palliative chemotherapy initially planned as outpatient, however, per Oncology, patient may benefit from palliative radiotherapy to right upper lung prior to chemotherapy initiation given her post-obstructive symptoms. Will likely start radiation in next several days inpatient if still in house otherwise will be done outpatient. Oncology following (5) Cholelithiasis Current Visit: Yes Status: Acute Assessment and Plan: initially admitted for symptoms of Cholelithiasis that was demonstrated on abdominal CT and cholecystectomy was recommended however patient went into respiratory failure requiring intubation. Medical management with pain medication and low-fat diet now recommended. No abdominal pain on 12/22 exam (6) Adrenal insufficiency Current Visit: Yes Status: Acute Assessment and Plan: Possible with random cortisol level of 4.9. Received IV steroids in the ICU. BP stable. Monitor (7) CHF (congestive heart failure) Current Visit: Yes Status: Acute Assessment and Plan: TTE with EF 2% and mild left diastolic dysfunction. Diuresed with IV Lasix in ICU. Appears euvolemic. Monitor I&O and daily weight (8) DVT prophylaxis Current Visit: Yes Status: Acute Assessment and Plan: heparin - Time Spent with Patient Total time spent is greater than 50% in coordination of care (as documented) at patient's floor/unit and/or counseling patient: Internal Medicine: Result - Labs CBC & Chem 7: 12/22/18 06:40 12/22/18 06:40 Labs: Short CBC 12/22/18 Range/Units 06:40 WBC 7.4 (4.3-11.1) K/mcL Hgb 13.0 (11.5-15.4) g/dL Hct 39.2 (35.3-44.9) % Plt Count 218 (140-400) K/mcL Neutrophils # 3.8 (1.6-8.9) K/mcL BMP 12/22/18 06:40 Sodium 143 Potassium 3.1 L Chloride 99 Carbon Dioxide 40 H* BUN 21 Creatinine 0.67 Glucose 95 Calcium 8.7 - ABG Interpretation ABG results: ABG ABG pH 7.45 pH Units (7.32-7.45) 12/19/18 05:32 ABG pCO2 47 mmHg (35-45) H 12/19/18 05:32 ABG pO2 69 mmHg (85-104) L 12/19/18 05:32 ABG O2 Saturation 94 % (95-98) L 12/19/18 05:32 PT/INR, D-dimer PT 12.1 Seconds (9.4-12.1) 12/16/18 16:09 - Impressions Impressions Brain MRI 12/22/18 19:17 IMPRESSION: No abnormal enhancement within the brain to suggest intracranial metastatic disease Moderate chronic small vessel ischemic disease within the periventricular white matter and lorraine Tiny old right cerebellar lacune Mild right parietal lobe encephalomalacia D/ / 12/22/2018 13:23:52 Tyler Mesa MD / milagro Interpreting Provider: Tyler Mesa MD Consult Discharge Plan - Plan Referrals: Maisha Ruth HOST/HOSTESS [Primary Care Provider] - 12/24/18 1:20 pm ___ (2) Pneumonia Qualifiers: Pneumonia type: due to unspecified organism Laterality: bilateral (3) COPD (chronic obstructive pulmonary disease) Qualifiers: COPD type: COPD with acute exacerbation Qualified Code(s): J44.1 - Chronic obstructive pulmonary disease with (acute) exacerbation (4) Metastatic lung carcinoma Qualifiers: Laterality: right Qualified Code(s): C78.01 - Secondary malignant neoplasm of right lung (5) Cholelithiasis Qualifiers: Cholelithiasis location: gallbladder Qualified Code(s): K80.00 - Calculus of gallbladder with acute cholecystitis without obstruction (7) CHF (congestive heart failure) Qualifiers: Qualified Code(s): I50.9 - Heart failure, unspecified
[2018-12-22] MEDS: risperiDONE 1 MG TABLET PO SCH (20:35)
[2018-12-23] MEDS: Ipratropium/Albuterol Neb 3 ML IH SCH ×7 (00:30→23:48)
[2018-12-23] MEDS: Cefepime HCl 1,000 MG in Water for inj. (sterile) 20 ML 10 ML IVP SCH ×4 (01:09→23:14)
[2018-12-23] MEDS: clonazePAM 1 MG TABLET PO PRN ×4 (01:25→23:00)
[2018-12-23] MEDS: OXYCODONE Oral CONC 10 MG/0.5 ML ORAL.SYG SL PRN ×3 (01:25→23:12)
[2018-12-23] MEDS: *HR* Heparin 5,000 UNIT/ML VIAL SQ SCH ×3 (05:42→23:01)
[2018-12-23 05:50] LABS: Hemoglobin 12.7 g/dL (11.5-15.4); Mean Corpuscular HGB Conc 32.6 g/dL (31.6-35.5); Mean Corpuscular Hemoglobin 31.6 pg (28.0-33.3); Mean Platelet Volume 9.6 fL (9.4-12.4); Platelet Count 194 K/mcL (140-400); Red Blood Count 4.02 M/mcL (3.82-4.97); Red Cell Distribution Width 11.9 % (11.5-14.5)
[2018-12-23 06:09] LABS: Alanine Aminotransferase 23 Units/L (7-52); Albumin 2.9 g/dL (3.5-5.7); Albumin/Globulin Ratio 1.3 (1.1-2.2); Alkaline Phosphatase 39 Units/L (34-104); Aspartate Amino Transferase 18 Units/L (13-39); BUN/Creatinine Ratio 25 (6-26); Bilirubin,Total 0.4 mg/dL (0.3-1.0); Blood Urea Nitrogen 17 mg/dL (8-23); Calcium 8.9 mg/dL (8.6-10.3); Carbon Dioxide 39 mEq/L (23-29); Chloride 98 mEq/L (98-107); Globulin 2.3 g/dL (2.4-3.5); Glucose 118 mg/dL (70-105); Osmolality,Calculated 297 (280-300); Potassium 3.3 mEq/L (3.5-5.1); Sodium 142 mEq/L (136-145); Total Protein 5.2 g/dL (6.4-8.9); eGFR For Non-African Americans > 60 (> 60)
[2018-12-23] MEDS: Budesonide/Formoterol 160/4.5 1 PUFF INH IH SCH ×2 (07:32→19:51)
[2018-12-23] MEDS: Insulin LISPRO 300 UNITS/3 ML VIAL SQ SCH ×4 (08:12→23:01)
[2018-12-23] MEDS: Aspirin 81 MG TAB.CHEW PO SCH (08:36)
[2018-12-23] MEDS: Chlorhexidine Rinse 15 ML MOUTHWASH MM SCH ×2 (08:36→23:00)
[2018-12-23] MEDS: metroNIDAZOLE 500 MG TABLET PO SCH ×3 (08:39→23:00)
--- NOTE | 2018-12-23 09:07 | Rad Onc Consult Note ---
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 She is Stage IV secondary to bilateral PET-avid pulmonary nodules. MR brain was negative for [employer] TECH disease. 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 She is Stage IV secondary to bilateral PET-avid pulmonary nodules. She was recently intubated in the ICU and now has improved pulmonary status. She is now on 2 L nasal cannula with stable vital signs. She has no history of cancer or radiotherapy. She presents for consideration of palliative radiotherapy to the thorax. Code Status: Full Code Past Medical History: COPD, diabetes, TIA Other History: emphysema. circulation problems. emotional problems Surgical History: other Smoking Status: Current every day smoker Smokeless Tobacco Status: No Alcohol use: none Drug use: none Family History -Oncology: heart disease, hypertension, stroke, cancer, diabetes, cholesterol problem Oncology - Medications Budesonide/Formoterol 160/4.5 [Symbicort 160/4.5] 2 puff IH BIDR 12/14/18 [History] Cilostazol [Pletal] 100 mg PO BID 12/14/18 [History] Cyclobenzaprine [Flexeril] 10 mg PO DAILY 12/14/18 [History] HYDROcodone/Acet 7.5/325 mg [[place] 7.5-325 mg] 1 tab PO Q6H PRN 12/14/18 [History] Lipase/Protease/Amylase [Maryann Dr 12,000 Units Capsule] 2 each PO ACHS 12/14/18 [History] Zolpidem [Ambien] 10 mg PO HS 12/14/18 [History] clonazePAM [Clonazepam] 1 mg PO QID PRN 12/14/18 [History] metFORMIN [Glucophage] 500 mg PO HS 12/14/18 [History] risperiDONE [Risperidone] 1 mg PO HS 12/14/18 [History] Citalopram [CeleXA] 40 mg PO DAILY 12/15/18 [History] Clopidogrel [Plavix] 75 mg PO DAILY 12/15/18 [History] Doxepin [Sinequan] 75 mg PO HS 12/15/18 [History] Simvastatin [Zocor] 40 mg PO HS 12/15/18 [History] lamoTRIgine [Lamictal Xr] 100 mg PO DAILY 12/15/18 [History] Allergy/AdvReac Type Severity Reaction Status Date / Time Penicillins Allergy Hives Verified 12/09/18 10:57 Review of Systems Provider Comments: A 12 point review of systems was performed. Pertinent positives and negatives are listed below and in the history of present illness. All other systems negative. General/Constitutional: Loss of Appetite, Fatigue, Change in Activity Level Ear/Nose/Eyes/Throat: Trouble Swallowing, Sore Throat Cardio/Pulmonary: Cough, Dyspnea, Dyspnea at Night, Dyspnea with Exertion GI/DIETARY: Nausea Physical Exam - Vitals Vital Signs: Last Vital Signs Temp 98.8 F 12/23/18 06:36 Pulse 94 12/23/18 06:36 Resp 18 12/23/18 07:33 BP 107/73 12/23/18 06:36 Pulse Ox 92 12/23/18 07:33 Weight: 89 kg ECO - Consciousness/Orientation Level Of Consciousness: Awake, Alert, Appropriate, Follows Commands Patient Orientation: Person, Name, Date of , Month, Year Physical Exam: General: Alert and oriented, well appearing. Mental Status: Affect appropriate for circumstances HEENT: Sclerae anicteric. No mucositis or thrush. No other oral lesions or erythema. Skin: No rashes or petechiae. Lymph nodes: No cervical, supraclavicular, axillary, or inguinal adenopathy. Lungs: Bilateral wheezing. Decreased breath sounds in the right upper lobe. Cardiovascular: Regular rate and rhythm. No gallops, murmurs, or rubs. Abdomen: Soft, nontender; no organomegaly or masses palpable. Extremities: No edema. No calf swelling or tenderness. No joint deformity. Neurologic: Alert, cranial nerves II-XII intact; no focal weakness or sensory abnormalities. Oncology- Results - Labs Labs: 12/23/18 12/23/18 12/23/18 06:57 05:25 05:25 WBC 6.5 RBC 4.02 Hgb 12.7 Hct 39.0 MCV 97.0 MCH 31.6 MCHC 32.6 RDW 11.9 Plt Count 194 MPV 9.6 Immature Gran % Seg Neutrophils % Lymphocytes % Monocytes % Eosinophils % Basophils % Neutrophils # Lymphocytes # Monocytes # Eosinophils # Basophils # PT INR Sample Site ABG pH ABG pCO2 ABG pO2 ABG HCO3 ABG Total CO2 ABG O2 Saturation ABG Base Excess Jeremias Test Respiration Rate O2 Delivery Device Blood Gas Modality Inspired O2 Tidal Volume PEEP Sodium 142 Potassium 3.3 L Chloride 98 Carbon Dioxide 39 H BUN 17 Creatinine 0.69 Est GFR ( Amer) > 60 Est GFR (Non-Af Amer) > 60 BUN/Creatinine Ratio 25 Glucose 118 H POC Glucose 104 H Calculated Osmolality 297 Lactic Acid Calcium 8.9 Venous Ioniz Calcium Phosphorus Magnesium Total Bilirubin 0.4 AST 18 ALT 23 Alkaline Phosphatase 39 B-Natriuretic Peptide Serum Total Protein 5.2 L Albumin 2.9 L Globulin 2.3 L Albumin/Globulin Ratio 1.3 Urine Color Urine Clarity Urine pH Ur Specific [place] Urine Protein Urine Glucose (UA) Urine Ketones Urine Blood Urine Nitrite Urine Bilirubin Urine Urobilinogen Ur Leukocyte Esterase Urine Microscopic RBC Urine Microscopic WBC Ur Squamous Epith Cells Urine Bacteria Hyaline Casts Nasal Screen MRSA (PCR) 12/22/18 12/22/18 12/22/18 20:14 16:01 10:57 WBC RBC Hgb Hct MCV MCH MCHC RDW Plt Count MPV Immature Gran % Seg Neutrophils % Lymphocytes % Monocytes % Eosinophils % Basophils % Neutrophils # Lymphocytes # Monocytes # Eosinophils # Basophils # PT INR Sample Site ABG pH ABG pCO2 ABG pO2 ABG HCO3 ABG Total CO2 ABG O2 Saturation ABG Base Excess Jeremias Test Respiration Rate O2 Delivery Device Blood Gas Modality Inspired O2 Tidal Volume PEEP Sodium Potassium Chloride Carbon Dioxide BUN Creatinine Est GFR ( Amer) Est GFR (Non-Af Amer) BUN/Creatinine Ratio Glucose POC Glucose 196 H 107 H 97 Calculated Osmolality Lactic Acid Calcium Venous Ioniz Calcium Phosphorus Magnesium Total Bilirubin AST ALT Alkaline Phosphatase B-Natriuretic Peptide Serum Total Protein Albumin Globulin Albumin/Globulin Ratio Urine Color Urine Clarity Urine pH Ur Specific [place] Urine Protein Urine Glucose (UA) Urine Ketones Urine Blood Urine Nitrite Urine Bilirubin Urine Urobilinogen Ur Leukocyte Esterase Urine Microscopic RBC Urine Microscopic WBC Ur Squamous Epith Cells Urine Bacteria Hyaline Casts Nasal Screen MRSA (PCR) 12/22/18 12/22/18 12/22/18 06:53 06:40 06:40 WBC 7.4 RBC 4.10 Hgb 13.0 Hct 39.2 MCV 95.6 MCH 31.7 MCHC 33.2 RDW 11.8 Plt Count 218 MPV 9.5 Immature Gran % 1.0 Seg Neutrophils % 51.9 Lymphocytes % 36.7 Monocytes % 8.3 Eosinophils % 1.8 Basophils % 0.3 Neutrophils # 3.8 Lymphocytes # 2.7 Monocytes # 0.6 Eosinophils # 0.1 Basophils # 0.0 PT INR Sample Site ABG pH ABG pCO2 ABG pO2 ABG HCO3 ABG Total CO2 ABG O2 Saturation ABG Base Excess Jeremias Test Respiration Rate O2 Delivery Device Blood Gas Modality Inspired O2 Tidal Volume PEEP Sodium 143 Potassium 3.1 L Chloride 99 Carbon Dioxide 40 H* BUN 21 Creatinine 0.67 Est GFR ( Amer) > 60 Est GFR (Non-Af Amer) > 60 BUN/Creatinine Ratio 31 H Glucose 95 POC Glucose 85 Calculated Osmolality 299 Lactic Acid Calcium 8.7 Venous Ioniz Calcium Phosphorus Magnesium Total Bilirubin AST ALT Alkaline Phosphatase B-Natriuretic Peptide Serum Total Protein Albumin Globulin Albumin/Globulin Ratio Urine Color Urine Clarity Urine pH Ur Specific [place] Urine Protein Urine Glucose (UA) Urine Ketones Urine Blood Urine Nitrite Urine Bilirubin Urine Urobilinogen Ur Leukocyte Esterase Urine Microscopic RBC Urine Microscopic WBC Ur Squamous Epith Cells Urine Bacteria Hyaline Casts Nasal Screen MRSA (PCR) 12/21/18 12/21/18 12/21/18 20:09 16:35 11:56 WBC RBC Hgb Hct MCV MCH MCHC RDW Plt Count MPV Immature Gran % Seg Neutrophils % Lymphocytes % Monocytes % Eosinophils % Basophils % Neutrophils # Lymphocytes # Monocytes # Eosinophils # Basophils # PT INR Sample Site ABG pH ABG pCO2 ABG pO2 ABG HCO3 ABG Total CO2 ABG O2 Saturation ABG Base Excess Jeremias Test Respiration Rate O2 Delivery Device Blood Gas Modality Inspired O2 Tidal Volume PEEP Sodium Potassium Chloride Carbon Dioxide BUN Creatinine Est GFR ( Amer) Est GFR (Non-Af Amer) BUN/Creatinine Ratio Glucose POC Glucose 230 H 86 212 H Calculated Osmolality Lactic Acid Calcium Venous Ioniz Calcium Phosphorus Magnesium Total Bilirubin AST ALT Alkaline Phosphatase B-Natriuretic Peptide Serum Total Protein Albumin Globulin Albumin/Globulin Ratio Urine Color Urine Clarity Urine pH Ur Specific [place] Urine Protein Urine Glucose (UA) Urine Ketones Urine Blood Urine Nitrite Urine Bilirubin Urine Urobilinogen Ur Leukocyte Esterase Urine Microscopic RBC Urine Microscopic WBC Ur Squamous Epith Cells Urine Bacteria Hyaline Casts Nasal Screen MRSA (PCR) 12/21/18 12/21/18 12/21/18 11:15 07:43 04:37 WBC RBC Hgb Hct MCV MCH MCHC RDW Plt Count MPV Immature Gran % Seg Neutrophils % Lymphocytes % Monocytes % Eosinophils % Basophils % Neutrophils # Lymphocytes # Monocytes # Eosinophils # Basophils # PT INR Sample Site ABG pH ABG pCO2 ABG pO2 ABG HCO3 ABG Total CO2 ABG O2 Saturation ABG Base Excess Jeremias Test Respiration Rate O2 Delivery Device Blood Gas Modality Inspired O2 Tidal Volume PEEP Sodium Potassium 3.3 L Chloride Carbon Dioxide BUN Creatinine Est GFR ( Amer) Est GFR (Non-Af Amer) BUN/Creatinine Ratio Glucose POC Glucose 119 H Calculated Osmolality Lactic Acid Calcium Venous Ioniz Calcium Phosphorus 3.2 Magnesium 2.2 Total Bilirubin AST ALT Alkaline Phosphatase B-Natriuretic Peptide Serum Total Protein Albumin Globulin Albumin/Globulin Ratio Urine Color Urine Clarity Urine pH Ur Specific [place] Urine Protein Urine Glucose (UA) Urine Ketones Urine Blood Urine Nitrite Urine Bilirubin Urine Urobilinogen Ur Leukocyte Esterase Urine Microscopic RBC Urine Microscopic WBC Ur Squamous Epith Cells Urine Bacteria Hyaline Casts Nasal Screen MRSA (PCR) 12/21/18 12/21/18 12/21/18 04:37 04:37 00:00 WBC 6.4 RBC 4.01 Hgb 12.5 Hct 38.3 MCV 95.5 MCH 31.2 MCHC 32.6 RDW 11.6 Plt Count 217 MPV 9.6 Immature Gran % 0.9 Seg Neutrophils % 76.7 Lymphocytes % 16.1 Monocytes % 6.1 Eosinophils % 0.0 Basophils % 0.2 Neutrophils # 4.9 Lymphocytes # 1.0 Monocytes # 0.4 Eosinophils # 0.0 Basophils # 0.0 PT INR Sample Site ABG pH ABG pCO2 ABG pO2 ABG HCO3 ABG Total CO2 ABG O2 Saturation ABG Base Excess Jeremias Test Respiration Rate O2 Delivery Device Blood Gas Modality Inspired O2 Tidal Volume PEEP Sodium 140 Potassium 3.8 3.3 L Chloride 98 Carbon Dioxide 37 H BUN 24 H Creatinine 0.62 Est GFR ( Amer) > 60 Est GFR (Non-Af Amer) > 60 BUN/Creatinine Ratio 39 H Glucose 150 H POC Glucose Calculated Osmolality 297 Lactic Acid Calcium 8.9 Venous Ioniz Calcium Phosphorus Magnesium 2.4 Total Bilirubin AST ALT Alkaline Phosphatase B-Natriuretic Peptide Serum Total Protein Albumin Globulin Albumin/Globulin Ratio Urine Color Urine Clarity Urine pH Ur Specific [place] Urine Protein Urine Glucose (UA) Urine Ketones Urine Blood Urine Nitrite Urine Bilirubin Urine Urobilinogen Ur Leukocyte Esterase Urine Microscopic RBC Urine Microscopic WBC Ur Squamous Epith Cells Urine Bacteria Hyaline Casts Nasal Screen MRSA (PCR) 12/20/18 12/20/18 12/20/18 20:06 18:00 16:06 WBC RBC Hgb Hct MCV MCH MCHC RDW Plt Count MPV Immature Gran % Seg Neutrophils % Lymphocytes % Monocytes % Eosinophils % Basophils % Neutrophils # Lymphocytes # Monocytes # Eosinophils # Basophils # PT INR Sample Site ABG pH ABG pCO2 ABG pO2 ABG HCO3 ABG Total CO2 ABG O2 Saturation ABG Base Excess Jeremias Test Respiration Rate O2 Delivery Device Blood Gas Modality Inspired O2 Tidal Volume PEEP Sodium Potassium 2.9 L Chloride Carbon Dioxide BUN Creatinine Est GFR ( Amer) Est GFR (Non-Af Amer) BUN/Creatinine Ratio Glucose POC Glucose 183 H 209 H Calculated Osmolality Lactic Acid Calcium Venous Ioniz Calcium Phosphorus Magnesium 1.9 Total Bilirubin AST ALT Alkaline Phosphatase B-Natriuretic Peptide Serum Total Protein Albumin Globulin Albumin/Globulin Ratio Urine Color Urine Clarity Urine pH Ur Specific [place] Urine Protein Urine Glucose (UA) Urine Ketones Urine Blood Urine Nitrite Urine Bilirubin Urine Urobilinogen Ur Leukocyte Esterase Urine Microscopic RBC Urine Microscopic WBC Ur Squamous Epith Cells Urine Bacteria Hyaline Casts Nasal Screen MRSA (PCR) 12/20/18 12/20/18 12/20/18 12:37 12:21 12:08 WBC RBC Hgb Hct MCV MCH MCHC RDW Plt Count MPV Immature Gran % Seg Neutrophils % Lymphocytes % Monocytes % Eosinophils % Basophils % Neutrophils # Lymphocytes # Monocytes # Eosinophils # Basophils # PT INR Sample Site ABG pH ABG pCO2 ABG pO2 ABG HCO3 ABG Total CO2 ABG O2 Saturation ABG Base Excess Jeremias Test Respiration Rate O2 Delivery Device Blood Gas Modality Inspired O2 Tidal Volume PEEP Sodium 137 Potassium 2.8 L Chloride 93 L Carbon Dioxide 38 H BUN 28 H Creatinine 0.69 Est GFR ( Amer) > 60 Est GFR (Non-Af Amer) > 60 BUN/Creatinine Ratio 41 H Glucose 163 H POC Glucose 132 H Calculated Osmolality 293 Lactic Acid Calcium 9.1 Venous Ioniz Calcium 1.14 L Phosphorus Magnesium Total Bilirubin AST ALT Alkaline Phosphatase B-Natriuretic Peptide Serum Total Protein Albumin Globulin Albumin/Globulin Ratio Urine Color Urine Clarity Urine pH Ur Specific [place] Urine Protein Urine Glucose (UA) Urine Ketones Urine Blood Urine Nitrite Urine Bilirubin Urine Urobilinogen Ur Leukocyte Esterase Urine Microscopic RBC Urine Microscopic WBC Ur Squamous Epith Cells Urine Bacteria Hyaline Casts Nasal Screen MRSA (PCR) 12/20/18 12/20/18 12/20/18 12:08 12:08 08:46 WBC 7.9 RBC 4.07 Hgb 12.9 Hct 38.6 MCV 94.8 MCH 31.7 MCHC 33.4 RDW 11.8 Plt Count 217 MPV 9.2 L Immature Gran % 0.8 Seg Neutrophils % 78.6 Lymphocytes % 15.0 Monocytes % 5.6 Eosinophils % 0.0 Basophils % 0.0 Neutrophils # 6.2 Lymphocytes # 1.2 Monocytes # 0.4 Eosinophils # 0.0 Basophils # 0.0 PT INR Sample Site ABG pH ABG pCO2 ABG pO2 ABG HCO3 ABG Total CO2 ABG O2 Saturation ABG Base Excess Jeremias Test Respiration Rate O2 Delivery Device Blood Gas Modality Inspired O2 Tidal Volume PEEP Sodium Potassium Chloride Carbon Dioxide BUN Creatinine Est GFR ( Amer) Est GFR (Non-Af Amer) BUN/Creatinine Ratio Glucose POC Glucose 123 H Calculated Osmolality Lactic Acid Calcium Venous Ioniz Calcium Phosphorus 3.2 Magnesium 1.6 Total Bilirubin AST ALT Alkaline Phosphatase B-Natriuretic Peptide Serum Total Protein Albumin Globulin Albumin/Globulin Ratio Urine Color Urine Clarity Urine pH Ur Specific [place] Urine Protein Urine Glucose (UA) Urine Ketones Urine Blood Urine Nitrite Urine Bilirubin Urine Urobilinogen Ur Leukocyte Esterase Urine Microscopic RBC Urine Microscopic WBC Ur Squamous Epith Cells Urine Bacteria Hyaline Casts Nasal Screen MRSA (PCR) 12/19/18 12/19/18 12/19/18 19:44 12:10 05:32 WBC RBC Hgb Hct MCV MCH MCHC RDW Plt Count MPV Immature Gran % Seg Neutrophils % Lymphocytes % Monocytes % Eosinophils % Basophils % Neutrophils # Lymphocytes # Monocytes # Eosinophils # Basophils # PT INR Sample Site L Radial ABG pH 7.45 ABG pCO2 47 H ABG pO2 69 L ABG HCO3 32 H ABG Total CO2 34 H ABG O2 Saturation 94 L ABG Base Excess 7 H Jeremias Test N/A Respiration Rate 14 O2 Delivery Device Adult Vent Blood Gas Modality af Inspired O2 40.0 Tidal Volume 400 PEEP 5 Sodium Potassium Chloride Carbon Dioxide BUN Creatinine Est GFR ( Amer) Est GFR (Non-Af Amer) BUN/Creatinine Ratio Glucose POC Glucose 197 H 115 H Calculated Osmolality Lactic Acid Calcium Venous Ioniz Calcium Phosphorus Magnesium Total Bilirubin AST ALT Alkaline Phosphatase B-Natriuretic Peptide Serum Total Protein Albumin Globulin Albumin/Globulin Ratio Urine Color Urine Clarity Urine pH Ur Specific [place] Urine Protein Urine Glucose (UA) Urine Ketones Urine Blood Urine Nitrite Urine Bilirubin Urine Urobilinogen Ur Leukocyte Esterase Urine Microscopic RBC Urine Microscopic WBC Ur Squamous Epith Cells Urine Bacteria Hyaline Casts Nasal Screen MRSA (PCR) 12/19/18 12/19/18 12/18/18 03:40 03:40 22:45 WBC 7.7 RBC 4.10 Hgb 13.0 D Hct 39.6 MCV 96.6 MCH 31.7 MCHC 32.8 RDW 12.0 Plt Count 208 MPV 9.2 L Immature Gran % 0.5 Seg Neutrophils % 86.3 Lymphocytes % 5.3 Monocytes % 7.8 Eosinophils % 0.0 Basophils % 0.1 Neutrophils # 6.6 Lymphocytes # 0.4 L Monocytes # 0.6 Eosinophils # 0.0 Basophils # 0.0 PT INR Sample Site ABG pH ABG pCO2 ABG pO2 ABG HCO3 ABG Total CO2 ABG O2 Saturation ABG Base Excess Jeremias Test Respiration Rate O2 Delivery Device Blood Gas Modality Inspired O2 Tidal Volume PEEP Sodium 142 Potassium 3.4 L Chloride 101 Carbon Dioxide 32 H BUN 31 H Creatinine 0.69 Est GFR ( Amer) > 60 Est GFR (Non-Af Amer) > 60 BUN/Creatinine Ratio 45 H Glucose 151 H POC Glucose 162 H Calculated Osmolality 303 H Lactic Acid Calcium 9.4 Venous Ioniz Calcium Phosphorus Magnesium Total Bilirubin AST ALT Alkaline Phosphatase B-Natriuretic Peptide Serum Total Protein Albumin Globulin Albumin/Globulin Ratio Urine Color Urine Clarity Urine pH Ur Specific [place] Urine Protein Urine Glucose (UA) Urine Ketones Urine Blood Urine Nitrite Urine Bilirubin Urine Urobilinogen Ur Leukocyte Esterase Urine Microscopic RBC Urine Microscopic WBC Ur Squamous Epith Cells Urine Bacteria Hyaline Casts Nasal Screen MRSA (PCR) 12/18/18 12/18/18 12/18/18 18:02 11:55 05:22 WBC RBC Hgb Hct MCV MCH MCHC RDW Plt Count MPV Immature Gran % Seg Neutrophils % Lymphocytes % Monocytes % Eosinophils % Basophils % Neutrophils # Lymphocytes # Monocytes # Eosinophils # Basophils # PT INR Sample Site ABG pH ABG pCO2 ABG pO2 ABG HCO3 ABG Total CO2 ABG O2 Saturation ABG Base Excess Jeremias Test Respiration Rate O2 Delivery Device Blood Gas Modality Inspired O2 Tidal Volume PEEP Sodium Potassium Chloride Carbon Dioxide BUN Creatinine Est GFR ( Amer) Est GFR (Non-Af Amer) BUN/Creatinine Ratio Glucose POC Glucose 150 H 139 H 143 H Calculated Osmolality Lactic Acid Calcium Venous Ioniz Calcium Phosphorus Magnesium Total Bilirubin AST ALT Alkaline Phosphatase B-Natriuretic Peptide Serum Total Protein Albumin Globulin Albumin/Globulin Ratio Urine Color Urine Clarity Urine pH Ur Specific [place] Urine Protein Urine Glucose (UA) Urine Ketones Urine Blood Urine Nitrite Urine Bilirubin Urine Urobilinogen Ur Leukocyte Esterase Urine Microscopic RBC Urine Microscopic WBC Ur Squamous Epith Cells Urine Bacteria Hyaline Casts Nasal Screen MRSA (PCR) 12/18/18 12/18/18 12/18/18 04:43 03:29 03:29 WBC 5.4 RBC 3.58 L Hgb 11.4 L Hct 33.7 L MCV 94.1 MCH 31.8 MCHC 33.8 RDW 11.9 Plt Count 192 MPV 9.2 L Immature Gran % 0.4 Seg Neutrophils % 84.6 Lymphocytes % 8.3 Monocytes % 6.5 Eosinophils % 0.0 Basophils % 0.2 Neutrophils # 4.6 Lymphocytes # 0.5 L Monocytes # 0.4 Eosinophils # 0.0 Basophils # 0.0 PT INR Sample Site ABG pH 7.47 H ABG pCO2 41 ABG pO2 67 L ABG HCO3 30 H ABG Total CO2 32 H ABG O2 Saturation 94 L ABG Base Excess 6 H Jeremias Test N/A Respiration Rate 20 O2 Delivery Device Adult Vent Blood Gas Modality ASSIST CONTROL Inspired O2 40.0 Tidal Volume 450 PEEP 5 Sodium 137 Potassium 3.2 L Chloride 102 Carbon Dioxide 28 BUN 22 Creatinine 0.63 Est GFR ( Amer) > 60 Est GFR (Non-Af Amer) > 60 BUN/Creatinine Ratio 35 H Glucose 149 H POC Glucose Calculated Osmolality 290 Lactic Acid Calcium 9.0 Venous Ioniz Calcium Phosphorus Magnesium Total Bilirubin AST ALT Alkaline Phosphatase B-Natriuretic Peptide Serum Total Protein Albumin Globulin Albumin/Globulin Ratio Urine Color Urine Clarity Urine pH Ur Specific [place] Urine Protein Urine Glucose (UA) Urine Ketones Urine Blood Urine Nitrite Urine Bilirubin Urine Urobilinogen Ur Leukocyte Esterase Urine Microscopic RBC Urine Microscopic WBC Ur Squamous Epith Cells Urine Bacteria Hyaline Casts Nasal Screen MRSA (PCR) 12/17/18 12/17/18 12/17/18 23:26 18:32 11:24 WBC RBC Hgb Hct MCV MCH MCHC RDW Plt Count MPV Immature Gran % Seg Neutrophils % Lymphocytes % Monocytes % Eosinophils % Basophils % Neutrophils # Lymphocytes # Monocytes # Eosinophils # Basophils # PT INR Sample Site ABG pH ABG pCO2 ABG pO2 ABG HCO3 ABG Total CO2 ABG O2 Saturation ABG Base Excess Jeremias Test Respiration Rate O2 Delivery Device Blood Gas Modality Inspired O2 Tidal Volume PEEP Sodium Potassium Chloride Carbon Dioxide BUN Creatinine Est GFR ( Amer) Est GFR (Non-Af Amer) BUN/Creatinine Ratio Glucose POC Glucose 151 H 128 H 105 H Calculated Osmolality Lactic Acid Calcium Venous Ioniz Calcium Phosphorus Magnesium Total Bilirubin AST ALT Alkaline Phosphatase B-Natriuretic Peptide Serum Total Protein Albumin Globulin Albumin/Globulin Ratio Urine Color Urine Clarity Urine pH Ur Specific [place] Urine Protein Urine Glucose (UA) Urine Ketones Urine Blood Urine Nitrite Urine Bilirubin Urine Urobilinogen Ur Leukocyte Esterase Urine Microscopic RBC Urine Microscopic WBC Ur Squamous Epith Cells Urine Bacteria Hyaline Casts Nasal Screen MRSA (PCR) 12/17/18 12/17/18 12/17/18 05:16 05:04 05:04 WBC RBC Hgb Hct MCV MCH MCHC RDW Plt Count MPV Immature Gran % Seg Neutrophils % Lymphocytes % Monocytes % Eosinophils % Basophils % Neutrophils # Lymphocytes # Monocytes # Eosinophils # Basophils # PT INR Sample Site R Radial L Radial ABG pH 7.43 7.42 ABG pCO2 43 44 ABG pO2 61 L 35 L* ABG HCO3 28 H 29 H ABG Total CO2 30 H 30 H ABG O2 Saturation 91 L 67 L ABG Base Excess 4 H 4 H Jeremias Test N/A Respiration Rate 20 20 O2 Delivery Device Adult Vent Blood Gas Modality ASSIST CONTROL ASSIST CONTROL Inspired O2 40.0 40.0 Tidal Volume 450 450 PEEP 5 5 Sodium Potassium Chloride Carbon Dioxide BUN Creatinine Est GFR ( Amer) Est GFR (Non-Af Amer) BUN/Creatinine Ratio Glucose POC Glucose 152 H Calculated Osmolality Lactic Acid Calcium Venous Ioniz Calcium Phosphorus Magnesium Total Bilirubin AST ALT Alkaline Phosphatase B-Natriuretic Peptide Serum Total Protein Albumin Globulin Albumin/Globulin Ratio Urine Color Urine Clarity Urine pH Ur Specific [place] Urine Protein Urine Glucose (UA) Urine Ketones Urine Blood Urine Nitrite Urine Bilirubin Urine Urobilinogen Ur Leukocyte Esterase Urine Microscopic RBC Urine Microscopic WBC Ur Squamous Epith Cells Urine Bacteria Hyaline Casts Nasal Screen MRSA (PCR) 12/17/18 12/17/18 12/17/18 03:00 03:00 03:00 WBC 4.4 RBC 3.64 L Hgb 11.7 D Hct 34.7 L MCV 95.3 MCH 32.1 MCHC 33.7 RDW 11.9 Plt Count 170 MPV 9.5 Immature Gran % 0.5 Seg Neutrophils % 85.5 Lymphocytes % 9.0 Monocytes % 5.0 Eosinophils % 0.0 Basophils % 0.0 Neutrophils # 3.8 Lymphocytes # 0.4 L Monocytes # 0.2 Eosinophils # 0.0 Basophils # 0.0 PT INR Sample Site ABG pH ABG pCO2 ABG pO2 ABG HCO3 ABG Total CO2 ABG O2 Saturation ABG Base Excess Jeremias Test Respiration Rate O2 Delivery Device Blood Gas Modality Inspired O2 Tidal Volume PEEP Sodium 135 L Potassium 3.6 Chloride 102 Carbon Dioxide 27 BUN 12 Creatinine 0.58 L Est GFR ( Amer) > 60 Est GFR (Non-Af Amer) > 60 BUN/Creatinine Ratio 21 Glucose 175 H POC Glucose Calculated Osmolality 284 Lactic Acid 1.2 Calcium 8.9 Venous Ioniz Calcium Phosphorus Magnesium Total Bilirubin AST ALT Alkaline Phosphatase B-Natriuretic Peptide Serum Total Protein Albumin Globulin Albumin/Globulin Ratio Urine Color Urine Clarity Urine pH Ur Specific [place] Urine Protein Urine Glucose (UA) Urine Ketones Urine Blood Urine Nitrite Urine Bilirubin Urine Urobilinogen Ur Leukocyte Esterase Urine Microscopic RBC Urine Microscopic WBC Ur Squamous Epith Cells Urine Bacteria Hyaline Casts Nasal Screen MRSA (PCR) 12/16/18 12/16/18 12/16/18 22:54 21:30 18:55 WBC RBC Hgb Hct MCV MCH MCHC RDW Plt Count MPV Immature Gran % Seg Neutrophils % Lymphocytes % Monocytes % Eosinophils % Basophils % Neutrophils # Lymphocytes # Monocytes # Eosinophils # Basophils # PT INR Sample Site ABG pH ABG pCO2 ABG pO2 ABG HCO3 ABG Total CO2 ABG O2 Saturation ABG Base Excess Jeremias Test Respiration Rate O2 Delivery Device Blood Gas Modality Inspired O2 Tidal Volume PEEP Sodium Potassium Chloride Carbon Dioxide BUN Creatinine Est GFR ( Amer) Est GFR (Non-Af Amer) BUN/Creatinine Ratio Glucose POC Glucose 143 H Calculated Osmolality Lactic Acid Calcium Venous Ioniz Calcium Phosphorus Magnesium Total Bilirubin AST ALT Alkaline Phosphatase B-Natriuretic Peptide 631 H Serum Total Protein Albumin Globulin Albumin/Globulin Ratio Urine Color Dark Yellow Urine Clarity Cloudy A Urine pH 6.0 Ur Specific [place] 1.020 Urine Protein 100 H Urine Glucose (UA) Normal Urine Ketones 15 H Urine Blood Large H Urine Nitrite Negative Urine Bilirubin Negative Urine Urobilinogen Normal Ur Leukocyte Esterase Trace H Urine Microscopic RBC TNTC H Urine Microscopic WBC 5-15 H Ur Squamous Epith Cells Many H Urine Bacteria None Seen Hyaline Casts Test Not Performed Nasal Screen MRSA (PCR) 12/16/18 12/16/18 12/16/18 18:52 18:36 18:36 WBC RBC Hgb Hct MCV MCH MCHC RDW Plt Count MPV Immature Gran % Seg Neutrophils % Lymphocytes % Monocytes % Eosinophils % Basophils % Neutrophils # Lymphocytes # Monocytes # Eosinophils # Basophils # PT INR Sample Site L Radial ABG pH 7.29 L ABG pCO2 64 H ABG pO2 535 H ABG HCO3 31 H ABG Total CO2 33 H ABG O2 Saturation 100 H ABG Base Excess 3 Jeremias Test Positive Respiration Rate 18 O2 Delivery Device Adult Vent Blood Gas Modality ASSIST CONTROL Inspired O2 100.0 Tidal Volume 450 PEEP 5 Sodium Potassium Chloride Carbon Dioxide BUN Creatinine Est GFR ( Amer) Est GFR (Non-Af Amer) BUN/Creatinine Ratio Glucose POC Glucose 135 H Calculated Osmolality Lactic Acid Calcium Venous Ioniz Calcium Phosphorus Magnesium Total Bilirubin AST ALT Alkaline Phosphatase B-Natriuretic Peptide Serum Total Protein Albumin Globulin Albumin/Globulin Ratio Urine Color Urine Clarity Urine pH Ur Specific Lorimor Urine Protein Urine Glucose (UA) Urine Ketones Urine Blood Urine Nitrite Urine Bilirubin Urine Urobilinogen Ur Leukocyte Esterase Urine Microscopic RBC Urine Microscopic WBC Ur Squamous Epith Cells Urine Bacteria Hyaline Casts Nasal Screen MRSA (PCR) Negative 12/16/18 12/16/18 12/16/18 17:07 16:09 15:52 WBC RBC Hgb Hct MCV MCH MCHC RDW Plt Count MPV Immature Gran % Seg Neutrophils % Lymphocytes % Monocytes % Eosinophils % Basophils % Neutrophils # Lymphocytes # Monocytes # Eosinophils # Basophils # PT 12.1 INR 1.1 Sample Site ABG pH ABG pCO2 ABG pO2 ABG HCO3 ABG Total CO2 ABG O2 Saturation ABG Base Excess Jeremias Test Respiration Rate O2 Delivery Device Blood Gas Modality Inspired O2 Tidal Volume PEEP Sodium Potassium Chloride Carbon Dioxide BUN Creatinine Est GFR ( Amer) Est GFR (Non-Af Amer) BUN/Creatinine Ratio Glucose POC Glucose 146 H Calculated Osmolality Lactic Acid 0.9 Calcium Venous Ioniz Calcium Phosphorus Magnesium Total Bilirubin AST ALT Alkaline Phosphatase B-Natriuretic Peptide Serum Total Protein Albumin Globulin Albumin/Globulin Ratio Urine Color Urine Clarity Urine pH Ur Specific Lorimor Urine Protein Urine Glucose (UA) Urine Ketones Urine Blood Urine Nitrite Urine Bilirubin Urine Urobilinogen Ur Leukocyte Esterase Urine Microscopic RBC Urine Microscopic WBC Ur Squamous Epith Cells Urine Bacteria Hyaline Casts Nasal Screen MRSA (PCR) 12/16/18 12/16/18 12/15/18 11:34 07:53 17:46 WBC RBC Hgb Hct MCV MCH MCHC RDW Plt Count MPV Immature Gran % Seg Neutrophils % Lymphocytes % Monocytes % Eosinophils % Basophils % Neutrophils # Lymphocytes # Monocytes # Eosinophils # Basophils # PT INR Sample Site ABG pH ABG pCO2 ABG pO2 ABG HCO3 ABG Total CO2 ABG O2 Saturation ABG Base Excess Jeremias Test Respiration Rate O2 Delivery Device Blood Gas Modality Inspired O2 Tidal Volume PEEP Sodium Potassium Chloride Carbon Dioxide BUN Creatinine Est GFR ( Amer) Est GFR (Non-Af Amer) BUN/Creatinine Ratio Glucose POC Glucose 126 H 114 H 117 H Calculated Osmolality Lactic Acid Calcium Venous Ioniz Calcium Phosphorus Magnesium Total Bilirubin AST ALT Alkaline Phosphatase B-Natriuretic Peptide Serum Total Protein Albumin Globulin Albumin/Globulin Ratio Urine Color Urine Clarity Urine pH Ur Specific Lorimor Urine Protein Urine Glucose (UA) Urine Ketones Urine Blood Urine Nitrite Urine Bilirubin Urine Urobilinogen Ur Leukocyte Esterase Urine Microscopic RBC Urine Microscopic WBC Ur Squamous Epith Cells Urine Bacteria Hyaline Casts Nasal Screen MRSA (PCR) - Assessment Assessment: 63-year-old female presents with 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 She is Stage IV secondary to bilateral PET-avid pulmonary nodules. MR brain was negative for ELECT[employer]IPMENT MA[employer] TECH disease. I will plan palliative radiotherapy to 2000 cGy in 5 fractions to the thoracic disease. Dr. Humphrey will consider systemic therapy at a later date pending molecular testing. Risks and benefits of radiotherapy were discussed with patient. Consent was obtained. Goal of palliation was discussed. Patient declined Hospice at this time. I will proceed with CT simulation today. Thank you for allowing me to participate in the care of Ms. Mace. Sincerely, Taras Murphy MD Radiation Oncology [facility] - Patient Problem List (1) Lung cancer Status: Acute Qualifiers: Laterality: right Lung location: upper lobe of lung Qualified Code(s): C34.11 - Malignant neoplasm of upper lobe, right bronchus or lung
--- NOTE | 2018-12-23 09:19 | Rad Onc Dictation ---
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 She is Stage IV secondary to bilateral PET-avid pulmonary nodules. MR brain was negative for TITLE LAW[employer]ER disease. - Procedure Note Comments: CT Simulation and Treatment Planning Note Ms. Mace was brought into the CT Simulation suite and placed in the supine position. A custom vac-lock device for arm positioning was created. For comfort, a knee sponge was used. 3D CT Simulation was required secondary to irregular shape of the target volume, close proximity to critical normal structures. Critical normal structures adjacent to the target volume include the following: heart, lungs, and spinal cord. TGS [employer] TumorLOC software will be utilized to place an isocenter for treatment planning. This will be transferred to the lasers in the treatment room and will be used to jessy the patient for daily positioning. An AP/PA plan will be utilized to deliver 2000 cGy in 5 fractions of 400 cGy each. Daily imaging will be required to insure adequate treatment of the target volume and avoidance of critical normal structures with cone-beam CT secondary to the following: close margin between target volume and critical structures. We will align the daily imaging with simulation imaging daily with focus on the wilfredo, spinal cord, and esophagus. This patient will require weekly monitoring in the form of on-treatment visits to assess for progression through treatment, ability to tolerate further treatment, and to assess for treatment-related side effects in order to manage them. Consent has been obtained, and the patient is amenable to treatment. The risks and benefits of radiotherapy have been explained, and the patient is agreeable to proceed. Thank you again for allowing us to participate in the care of this pleasant patient. Sincerely, Taras Murphy MD Radiation Oncologist [facility] [address] [place] [address]
--- NOTE | 2018-12-23 14:34 | Oncology Inp Progress Note ---
<Destinee Humphrey S - Last Filed: 12/23/18 16:37> Date of Encounter: 12/23/18 Oncology: Obj Data - Labs CBC & Chem 7: 12/23/18 05:25 12/23/18 05:25 Consult Discharge Plan - Plan Referrals: Maisha Ruth CNP [Primary Care Provider] - Inpatient Charges Provider: Dr. Mer Humphrey Follow up - Inpatient: [id number] - Attending Attestation I examined this patient and my medical decision-making was reviewed with the Advanced Practice Nurse. I agree with the documented findings, disposition and treatment plan as described except to the extent set forth below. 1. Squamous cell carcinoma stage IV with bilateral metabolically active lung nodules by PET scan Right upper lobe mass with right upper lobe consolidation starting palliative radiation AP window lymph node involvement as well She had problems with prior authorization for next generation sequencing and PDL one testing. We will continue to pursue that. Clinically she improved and currently on 2 L of oxygen by nasal cannula. Systemic treatment discussion as an outpatient. 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 Significantly increased right upper lobe postobstructive collapse. 2. The right suprahilar mass appears increased in size although comparison is difficult due to the adjacent pulmonary collapse. 3. Numerous noncalcified bilateral pulmonary nodules are slightly increased in size, consistent with metastatic disease. 4. New moderate right pleural effusion. New small left pleural effusion. 5. Small pericardial effusion, slightly increased. Admitted for acute on chronic respiratory failure, etiology likely multifactorial in setting of known malignancy, COPD, pneumonia Intubated and transferred to ICU 12/15/18 for respiratory failure, hypotension in the setting of adrenal insufficiency. Bronchoscopy 12/17/18 notes occlusion of the RUL, secondary to complete obstructing mass Successfully extubated on 12/19/2017. Transitioned to stepdown yesterday, O2 sat 91% on 2L Brain MRI-no evidence of metastatic disease Plan: Continues with treatment for pneumonia---cefepime and Flagyl (day 7 of 10). Repeat CXR today reveals stable right suprahilar opacity with right upper lobe collapse compatible with centrally obstructing neoplasm until proven otherwise. Lungs are otherwise clear. 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 Patricia recommended cholecystectomy, however following her ICU admission req uiring ventilator support, it was recommended to continue medical management with pain medication and low-fat diet. Denies abdominal pain Oncology: Subj Interval history: Resting in bed. no acute events noted overnight. ambulating in room with assistance. SOB on exertion, continues to utilize 2L O2 per NC. Chronic pain to lower back controlled. Denies nausea, reports constipation. - Constitutional General appearance: cooperative, no acute distress, no febrile - Head Head exam: Present: atraumatic - ENT ENT exam: Present: mucous membranes moist, normal oropharynx - Respiratory Respiratory exam: Present: decreased breath sounds, CTAB. Absent: respiratory distress - Cardiovascular Cardiovascular exam: Present: RRR, +S1, +S2 - GI/Abdominal GI/Abdominal exam: Present: normal bowel sounds, soft. Absent: tenderness - Extremities Exam Extremities exam: Present: normal inspection. Absent: calf tenderness - Neurological Exam Neurological exam: Present: alert, oriented X3, no focal deficits, strengths equal and symetr throughout - Psychiatric Psychiatric exam: Present: normal affect, normal mood - Skin Skin exam: Present: dry, intact, normal color, warm Oncology: Obj Data - Labs CBC & Chem 7: 12/24/18 05:45 12/24/18 05:45 Inpatient Charges Provider: Dr. Mer Humphrey
--- NOTE | 2018-12-23 16:12 | Internal Med Progress Note ---
Hospitalist Progress Note - Encounter Date of Encounter: 12/23/18 Time of Encounter: 11:00 - Subjective Interval History: Patient is a 63-year-old female who presented with abdominal pain and was transferred from [facility] due to concerns of cholelithiasis with possible choledocholithiasis During patient's hospital stay however she developed acute on chronic hypoxic respiratory failure and had to be intubated and was later able to be extubated on supplemental oxygenation. CT chest revealed significantly increased right lower lobe postobstructive collapse as well as increase in size of right suprahilar mass and numerous noncalcified bilateral pulmonary nodules which are consistent with metastatic disease as well as new moderate right pleural effusion and small left pleural effusion and small pericardial effusion. Pulmonology was following and suspected respiratory failure secondary to lung carcinoma COPD, pneumonia and heart failure exacerbation. Physical therapy/occupational therapy has evaluated 3 the patient with recommendations for [place] however patient refuses and would like to opt for home health care. Patient now currently set to begin palliative radiation therapy per hematology oncology recommendations on 12/24/18 - Exam Vitals: Temp Pulse Resp BP Pulse Ox 98.5 F 91 18 90/61 94 12/23/18 14:47 12/23/18 14:47 12/23/18 15:53 12/23/18 14:47 12/23/18 15:53 Exam: Gen.: Nonacute distress, alert and oriented 3 ENT: Mucosal membranes moist Respiratory: Lungs are clear to auscultation bilaterally without any wheezing rhonchi or rales Cardiovascular: Normal S1 and S2 regular rate rhythm no murmurs rubs or gallops Abdomen: Soft, nontender and nondistended with positive bowel sounds Extremities: No lower extremity edema Skin: Normal color - Assessment and Plan (1) Metastatic lung carcinoma Current Visit: Yes Status: Inactive Assessment and Plan: CT chest revealed significantly increased right lower lobe postobstructive collapse as well as increase in size of right suprahilar mass and numerous noncalcified bilateral pulmonary nodules which are consistent with metastatic d isease as well as new moderate right pleural effusion and small left pleural effusion and small pericardial effusion. s/p bronchoscopy and bx of RUL lesion as well as bx of AP window adenopathy which revealed moderately differentiated squamous cell carcinoma. Patient now currently set to begin palliative radiation therapy per hematology oncology recommendations on 12/24/18 (2) Acute and chronic respiratory failure with hypoxia Current Visit: Yes Status: Acute Assessment and Plan: During patient's hospital stay however she developed acute on chronic hypoxic respiratory failure and had to be intubated and was later able to be extubated on supplemental oxygenation. CT chest revealed significantly increased right lower lobe postobstructive collapse as well as increase in size of right suprahilar mass and numerous noncalcified bilateral pulmonary nodules which are consistent with metastatic disease as well as new moderate right pleural effusion and small left pleural effusion and small pericardial effusion. Pulmonology was following and suspected respiratory failure secondary to lung carcinoma COPD, pneumonia and heart failure exacerbation. Will continue patient on supplemental O2 and wean as tolerates. (3) Pneumonia Current Visit: Yes Status: Acute Assessment and Plan: CXR with RUL opacity/atelectasis and right pleural effusion. Continue day 7 of 10 with cefepime and Flagyl (4) COPD (chronic obstructive pulmonary disease) Current Visit: Yes Status: Acute Assessment and Plan: Suspect exacerbation with wheezing and cough. Completed steroids and ICU. Continue IV ATB as above in addition to bronchodilators. (5) Cholelithiasis Current Visit: Yes Status: Acute Assessment and Plan: Initially admitted for symptoms of Cholelithiasis that was demonstrated on abdominal CT and cholecystectomy was recommended however patient went into respiratory failure requiring intubation. Medical management with pain medication and low-fat diet now recommended. (6) CHF (congestive heart failure) Current Visit: Yes Status: Acute Assessment and Plan: Echocardiogram showed LVEF of 60% with normal LV chamber structure and function in addition to mild left ventricular diastolic dysfunction without any valvular dysfunction and no evidence of pulmonary hypertension Diuresed with IV Lasix in ICU. Now euvolemic; monitor I&O and daily weight (7) Adrenal insufficiency Current Visit: Yes Status: Acute Assessment and Plan: Random cortisol level of 4.9. Received IV steroids in the ICU. Vital signs are now stable and will continue to monitor DVT Prophylaxis: Heparin subcutaneous - Time Spent with Patient Total time spent is greater than 50% in coordination of care (as documented) at patient's floor/unit and/or counseling patient: Internal Medicine: Result - Labs CBC & Chem 7: 12/23/18 05:25 12/23/18 05:25 Labs: Short CBC 12/23/18 Range/Units 05:25 WBC 6.5 (4.3-11.1) K/mcL Hgb 12.7 (11.5-15.4) g/dL Hct 39.0 (35.3-44.9) % Plt Count 194 (140-400) K/mcL BMP 12/23/18 05:25 Sodium 142 Potassium 3.3 L Chloride 98 Carbon Dioxide 39 H BUN 17 Creatinine 0.69 Glucose 118 H Calcium 8.9 Liver Function 12/23/18 Range/Units 05:25 Total Bilirubin 0.4 (0.3-1.0) mg/dL AST 18 (13-39) Units/L ALT 23 (7-52) Units/L Alkaline Phosphatase 39 (34-104) Units/L Albumin 2.9 L (3.5-5.7) g/dL - ABG Interpretation ABG results: ABG ABG pH 7.45 pH Units (7.32-7.45) 12/19/18 05:32 ABG pCO2 47 mmHg (35-45) H 12/19/18 05:32 ABG pO2 69 mmHg (85-104) L 12/19/18 05:32 ABG O2 Saturation 94 % (95-98) L 12/19/18 05:32 PT/INR, D-dimer PT 12.1 Seconds (9.4-12.1) 12/16/18 16:09 - Impressions Impressions Chest X-Ray 12/23/18 10:00 IMPRESSION: See findings above. D/ / Bernardo Maharaj / Bernardo Maharaj Interpreting Provider: Bernardo Maharaj Consult Discharge Plan - Plan Referrals: Maisha Ruth, ENDOSCOPY TECHNICAN [Primary Care Provider] - 12/24/18 1:20 pm (1) Metastatic lung carcinoma Qualifiers: Laterality: right Qualified Code(s): C78.01 - Secondary malignant neoplasm of right lung (3) Pneumonia Qualifiers: Pneumonia type: due to unspecified organism Laterality: bilateral (4) COPD (chronic obstructive pulmonary disease) Qualifiers: COPD type: COPD with acute exacerbation Qualified Code(s): J44.1 - Chronic obstructive pulmonary disease with (acute) exacerbation (5) Cholelithiasis Qualifiers: Cholelithiasis location: gallbladder Qualified Code(s): K80.00 - Calculus of gallbladder with acute cholecystitis without obstruction (6) CHF (congestive heart failure) Qualifiers: Qualified Code(s): I50.9 - Heart failure, unspecified
[2018-12-23] MEDS: risperiDONE 1 MG TABLET PO SCH (23:00)
[2018-12-23] MEDS: Sennosides/Docusate Sodium TABLET PO SCH (23:03)
[2018-12-24] MEDS: Ipratropium/Albuterol Neb 3 ML IH SCH ×6 (03:45→23:24)
[2018-12-24] MEDS: *HR* Heparin 5,000 UNIT/ML VIAL SQ SCH ×3 (05:36→21:20)
[2018-12-24 05:56] LABS: Hematocrit 37.1 % (35.3-44.9); Hemoglobin 12.1 g/dL (11.5-15.4); Mean Corpuscular HGB Conc 32.6 g/dL (31.6-35.5); Mean Corpuscular Hemoglobin 31.8 pg (28.0-33.3); Mean Corpuscular Volume 97.4 fL (83.0-100.0); Mean Platelet Volume 9.5 fL (9.4-12.4); Platelet Count 160 K/mcL (140-400); Red Blood Count 3.81 M/mcL (3.82-4.97)
[2018-12-24 06:16] LABS: Alanine Aminotransferase 22 Units/L (7-52); Albumin 2.8 g/dL (3.5-5.7); Albumin/Globulin Ratio 1.3 (1.1-2.2); Alkaline Phosphatase 36 Units/L (34-104); Aspartate Amino Transferase 18 Units/L (13-39); BUN/Creatinine Ratio 17 (6-26); Bilirubin,Total 0.5 mg/dL (0.3-1.0); Blood Urea Nitrogen 11 mg/dL (8-23); Calcium 8.8 mg/dL (8.6-10.3); Carbon Dioxide 39 mEq/L (23-29); Chloride 98 mEq/L (98-107); Globulin 2.2 g/dL (2.4-3.5); Glucose 119 mg/dL (70-105); Osmolality,Calculated 293 (280-300); Potassium 3.2 mEq/L (3.5-5.1); Sodium 141 mEq/L (136-145); eGFR For Non-African Americans > 60 (> 60)
[2018-12-24] MEDS: Budesonide/Formoterol 160/4.5 1 PUFF INH IH SCH ×2 (07:39→19:43)
[2018-12-24] MEDS: Insulin LISPRO 300 UNITS/3 ML VIAL SQ SCH ×4 (08:05→20:26)
[2018-12-24] MEDS: Cefepime HCl 1,000 MG in Water for inj. (sterile) 20 ML 10 ML IVP SCH (10:21)
[2018-12-24] MEDS: Sennosides/Docusate Sodium TABLET PO SCH ×2 (10:22→21:19)
[2018-12-24] MEDS: OXYCODONE Oral CONC 10 MG/0.5 ML ORAL.SYG SL PRN ×2 (10:22→21:20)
[2018-12-24] MEDS: metroNIDAZOLE 500 MG TABLET PO SCH (10:22)
[2018-12-24] MEDS: Chlorhexidine Rinse 15 ML MOUTHWASH MM SCH (10:23)
[2018-12-24] MEDS: Aspirin 81 MG TAB.CHEW PO SCH (10:23)
[2018-12-24] MEDS: clonazePAM 1 MG TABLET PO PRN ×2 (13:30→21:19)
--- NOTE | 2018-12-24 17:37 | Internal Med Progress Note ---
Hospitalist Progress Note - Encounter Date of Encounter: 12/24/18 Time of Encounter: 11:00 - Subjective Interval History: Patient is a 63-year-old female who presented with abdominal pain and was transferred from [facility] due to concerns of cholelithiasis with possible choledocholithiasis During patient's hospital stay however she developed acute on chronic hypoxic respiratory failure and had to be intubated and was later able to be extubated on supplemental oxygenation. CT chest revealed significantly increased right lower lobe postobstructive collapse as well as increase in size of right suprahilar mass and numerous noncalcified bilateral pulmonary nodules which are consistent with metastatic disease as well as new moderate right pleural effusion and small left pleural effusion and small pericardial effusion. Pulmonology was following and suspected respiratory failure secondary to lung carcinoma, COPD, pneumonia and heart failure exacerbation. Physical therapy/occupational therapy has evaluated 3 the patient with recommendations for intermediate facility however patient refuses and would like to opt for home health care. Patient now currently set to begin palliative radiation therapy today per hematology oncology recommendations She reports of feeling no better this morning with shortness of breath and still requiring supplemental oxygenation - Exam Vitals: Temp Pulse Resp BP Pulse Ox 98.3 F 60 15 173/85 94 12/24/18 16:04 12/24/18 16:04 12/24/18 16:04 12/24/18 16:04 12/24/18 16:04 Exam: Gen.: Nonacute distress, alert and oriented 3 ENT: Mucosal membranes moist Respiratory: Lungs are clear to auscultation bilaterally without any wheezing rhonchi or rales Cardiovascular: Normal S1 and S2 regular rate rhythm no murmurs rubs or gallops Abdomen: Soft, nontender and nondistended with positive bowel sounds Extremities: No lower extremity edema Skin: Normal color - Assessment and Plan (1) Metastatic lung carcinoma Current Visit: Yes Status: Inactive Assessment and Plan: CT chest revealed significantly increased right lower lobe postobstructive collapse as well as increase in size of right suprahilar mass and numerous noncalcified bilateral pulmonary nodules which are consistent with metastatic disease as well as new moderate right pleural effusion and small left pleural effusion and small pericardial effusion. s/p bronchoscopy and bx of RUL lesion as well as bx of AP window adenopathy which revealed moderately differentiated squamous cell carcinoma. 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 CT chest revealed significantly increased right lower lobe postobstructive collapse as well as increase in size of right suprahilar mass and numerous noncalcified bilateral pulmonary nodules which are consistent with metastatic disease as well as new moderate right pleural effusion and small left pleural effusion and small pericardial effusion. Pulmonology was following and suspected respiratory failure secondary to lung carcinoma COPD, pneumonia and heart failure exacerbation. Will continue patient on supplemental O2 and wean as tolerates. (3) Pneumonia Current Visit: Yes Status: Acute Assessment and Plan: CXR with RUL opacity/atelectasis and right pleural effusion. Continue day 09/02 with cefepime and 07/03 on Flagyl Will discontinue antibiotics after today (4) COPD (chronic obstructive pulmonary disease) Current Visit: Yes Status: Acute Assessment and Plan: Suspect exacerbation with wheezing and cough. Completed steroids and ICU. IV antibiotics also completed as above (5) Cholelithiasis Current Visit: Yes Status: Acute Assessment and Plan: Initially admitted for symptoms of Cholelithiasis that was demonstrated on abdominal CT and cholecystectomy was recommended however patient went into respiratory failure requiring intubation. Medical management with pain medication and low-fat diet now recommended. (6) CHF (congestive heart failure) Current Visit: Yes Status: Acute Assessment and Plan: Echocardiogram showed LVEF of 60% with normal LV chamber structure and function in addition to mild left ventricular diastolic dysfunction without any valvular dysfunction and no evidence of pulmonary hypertension Diuresed with IV Lasix in ICU. Now euvolemic; monitor I&O and daily weight (7) Adrenal insufficiency Current Visit: Yes Status: Acute Assessment and Plan: Random cortisol level of 4.9. Received IV steroids in the ICU. Vital signs are now stable and will continue to monitor DVT Prophylaxis: Heparin subcutaneous - Time Spent with Patient Total time spent is greater than 50% in coordination of care (as documented) at patient's floor/unit and/or counseling patient: Internal Medicine: Result - Labs CBC & Chem 7: 12/24/18 05:45 12/24/18 05:45 Labs: Short CBC 12/24/18 Range/Units 05:45 WBC 5.3 (4.3-11.1) K/mcL Hgb 12.1 (11.5-15.4) g/dL Hct 37.1 (35.3-44.9) % Plt Count 160 (140-400) K/mcL BMP 12/24/18 05:45 Sodium 141 Potassium 3.2 L Chloride 98 Carbon Dioxide 39 H BUN 11 Creatinine 0.63 Glucose 119 H Calcium 8.8 Liver Function 12/24/18 Range/Units 05:45 Total Bilirubin 0.5 (0.3-1.0) mg/dL AST 18 (13-39) Units/L ALT 22 (7-52) Units/L Alkaline Phosphatase 36 (34-104) Units/L Albumin 2.8 L (3.5-5.7) g/dL - ABG Interpretation ABG results: ABG ABG pH 7.45 pH Units (7.32-7.45) 12/19/18 05:32 ABG pCO2 47 mmHg (35-45) H 12/19/18 05:32 ABG pO2 69 mmHg (85-104) L 12/19/18 05:32 ABG O2 Saturation 94 % (95-98) L 12/19/18 05:32 PT/INR, D-dimer PT 12.1 Seconds (9.4-12.1) 12/16/18 16:09 Consult Discharge Plan - Plan Referrals: Maisha Ruth, MARKETING BUSINESS ANALYST [Primary Care Provider] - (1) Metastatic lung carcinoma Qualifiers: Laterality: right Qualified Code(s): C78.01 - Secondary malignant neoplasm of right lung (3) Pneumonia Qualifiers: Pneumonia type: due to unspecified organism Laterality: bilateral (4) COPD (chronic obstructive pulmonary disease) Qualifiers: COPD type: COPD with acute exacerbation Qualified Code(s): J44.1 - Chronic obstructive pulmonary disease with (acute) exacerbation (5) Cholelithiasis Qualifiers: Cholelithiasis location: gallbladder Qualified Code(s): K80.00 - Calculus of gallbladder with acute cholecystitis without obstruction (6) CHF (congestive heart failure) Qualifiers: Qualified Code(s): I50.9 - Heart failure, unspecified
--- NOTE | 2018-12-24 18:33 | Oncology Inp Progress Note ---
Date of Encounter: 12/24/18 Time of Encounter: 18:31 (1) Lung cancer Current Visit: No Status: Acute Assessment and plan: 1Stage IV squamous cell carcinoma bilateral lung nodules She has a obstructing lesion in the right upper lobe bronchus with right upper lobe pneumonia. We will start incentive spirometer to improved aeration 2. New onset pleuritic-type chest pain in the right lower lobe for last 2 days. Otherwise her vitals are stable and oxygen requirement is stable. Chest x-ray 12/23/2018 no new findings. We will continue to monitor. If her symptoms do not improve may consider CT angiogram chest Qualifiers: Laterality: right Lung location: upper lobe of lung Qualified Code(s): C34.11 - Malignant neoplasm of upper lobe, right bronchus or lung Oncology: Subj Interval history: Pain in the left lower chest with deep breathing. Going on for about 2 days. Her oxygen saturation is stable on O2 by nasal cannula. No other new complaints. She received first dose of radiation on 12/24/2018 - Constitutional Exam: GENERAL: Alert and oriented, well appearing. Mental Status: Affect appropriate for circumstances HEENT: Sclerae anicteric. No mucositis or thrush. No other oral or pharyngeal lesions or erythema. Skin: No rashes or petechiae. No evidence of skin malignancy Lymph nodes: No cervical, supraclavicular, axillary, or inguinal adenopathy. Lungs: Air entry decreased in the right long. Air entry good in the left lung base and no major crackles Cardiovascular: Regular rate and rhythm. No skipped beats Abdomen: Soft, nontender; no organomegaly or masses palpable. Extremities: No edema. No calf swelling or tenderness. No joint deformity. Neurologic: Alert, cranial nerves II-XII intact; normal gait; no focal weakness or sensory abnormalities Oncology: Obj Data - Labs CBC & Chem 7: 12/24/18 05:45 12/24/18 05:45 Consult Discharge Plan - Plan Referrals: Maisha Ruth CNP [Primary Care Provider] - Inpatient Charges Provider: Dr. Mer Humphrey Follow up - Inpatient: [id number]
[2018-12-24] MEDS: risperiDONE 1 MG TABLET PO SCH (21:19)
[2018-12-25] MEDS: Ipratropium/Albuterol Neb 3 ML IH SCH ×5 (04:19→20:34)
[2018-12-25] MEDS: *HR* Heparin 5,000 UNIT/ML VIAL SQ SCH ×3 (06:12→22:12)
[2018-12-25] MEDS: Insulin LISPRO 300 UNITS/3 ML VIAL SQ SCH ×4 (07:36→22:13)
[2018-12-25] MEDS: Budesonide/Formoterol 160/4.5 1 PUFF INH IH SCH ×2 (07:53→20:34)
[2018-12-25] MEDS: Aspirin 81 MG TAB.CHEW PO SCH (08:43)
[2018-12-25] MEDS: Sennosides/Docusate Sodium TABLET PO SCH ×2 (08:43→22:07)
[2018-12-25] MEDS: clonazePAM 1 MG TABLET PO PRN ×2 (08:56→22:12)
[2018-12-25 09:11] LABS: Hematocrit 38.5 % (35.3-44.9); Hemoglobin 12.5 g/dL (11.5-15.4); Mean Corpuscular HGB Conc 32.5 g/dL (31.6-35.5); Mean Corpuscular Hemoglobin 31.6 pg (28.0-33.3); Mean Corpuscular Volume 97.2 fL (83.0-100.0); Mean Platelet Volume 9.8 fL (9.4-12.4); Platelet Count 150 K/mcL (140-400); Red Blood Count 3.96 M/mcL (3.82-4.97)
[2018-12-25 09:47] LABS: Alanine Aminotransferase 29 Units/L (7-52); Albumin 3.3 g/dL (3.5-5.7); Albumin/Globulin Ratio 1.3 (1.1-2.2); Alkaline Phosphatase 40 Units/L (34-104); Aspartate Amino Transferase 29 Units/L (13-39); BUN/Creatinine Ratio 14 (6-26); Bilirubin,Total 0.6 mg/dL (0.3-1.0); Blood Urea Nitrogen 9 mg/dL (8-23); Calcium 9.5 mg/dL (8.6-10.3); Carbon Dioxide 40 mEq/L (23-29); Chloride 97 mEq/L (98-107); Globulin 2.5 g/dL (2.4-3.5); Glucose 97 mg/dL (70-105); Osmolality,Calculated 289 (280-300); Potassium 3.5 mEq/L (3.5-5.1); Sodium 140 mEq/L (136-145); Total Protein 5.8 g/dL (6.4-8.9); eGFR For Non-African Americans > 60 (> 60)
[2018-12-25] MEDS: OXYCODONE Oral CONC 10 MG/0.5 ML ORAL.SYG SL PRN ×3 (10:52→22:12)
[2018-12-25] MEDS ORDERED: Isovue-370 500 ML BOTTLE IVP ONE (11:57)
--- NOTE | 2018-12-25 12:06 | Oncology Inp Progress Note ---
<Ashlee Payton L - Last Filed: 12/25/18 15:58> Date of Encounter: 12/25/18 Time of Encounter: 11:00 (1) Metastatic lung carcinoma Current Visit: Yes Status: Inactive Assessment and plan: AJCC clinical stage IV squamous cell carcinoma of the right lung S/P bronchoscopy and bx of RUL lesion as well as bx of AP window adenopathy whi ch revealed moderately differentiated squamous cell carcinoma PET imaging October 2018 show bilateral PET positive lung nodules consistent with Stage IV disease CT Chest 12/15/2018: 1. Significantly increased right upper lobe postobstructive collapse. 2. The right suprahilar mass appears increased in size although comparison is difficult due to the adjacent pulmonary collapse. 3. Numerous noncalcified bilateral pulmonary nodules are slightly increased in size, consistent with metastatic disease. 4. New moderate right pleural effusion. New small left pleural effusion. 5. Small pericardial effusion, slightly increased. Admitted for acute on chronic respiratory failure, etiology likely mult ifactorial in setting of known malignancy, COPD, pneumonia Intubated and transferred to ICU 12/15/18 for respiratory failure, hypotension in the setting of adrenal insufficiency. Bronchoscopy 12/17/18 notes occlusion of the RUL, secondary to complete obstructing mass Successfully extubated on 12/19/2017. Transitioned to stepdown yesterday, O2 sat 91% on 2L Brain MRI-no evidence of metastatic disease Plan: Continues with treatment for pneumonia---cefepime completed 09/02 and Flagyl (day 9 of ). Repeat CXR 12/23 reveals stable right suprahilar opacity with right upper lobe collapse compatible with centrally obstructing neoplasm until proven otherwise. Lungs are otherwise clear. CTA chest today for continued pain with inspiration/cough, increase in O2 demand per nasal cannula, moderate Wells Score risk and in the setting of active malignancy with prolonged hospital stay. CTA negative for acute PE S/P 1 of 5 fraction palliative radiotherapy to treat postobstructive symptoms and collapse of RUL D/W social media marketing analyst, no transportation assistance available for patient, patient needs calendar so she can arrange for transport, she has family/friends that can assist Plan to initiate systemic therapy as outpatient following palliative radiotherapy, NGS has been ordered but has not yet completed due to PA issues Qualifiers: Laterality: right Qualified Code(s): C78.01 - Secondary malignant neoplasm of right lung (2) Acute cholecystitis Current Visit: Yes Status: Inactive Assessment and plan: Dr. Patricia recommended cholecystectomy, however following her ICU admission requiring ventilator support, it was recommended to continue medical management with pain medication and low-fat diet. Denies abdominal pain Oncology: Subj Interval history: Resting comfortably. No acute distress. No acute events noted overnight. CO2 elevated this morning. Over the past 24 hours patients O2 was increased from 2L to 4.5L per nasal cannula. She continues to report inspiratory pain/pain with cough. Denies hemoptysis. Denies LE pain or edema. - Constitutional General appearance: cooperative, no acute distress, no febrile - Head Head exam: Present: atraumatic - ENT ENT exam: Present: mucous membranes moist, normal oropharynx - Respiratory Respiratory exam: Present: decreased breath sounds. Absent: respiratory distress - Cardiovascular Cardiovascular exam: Present: RRR, +S1, +S2 - GI/Abdominal GI/Abdominal exam: Present: normal bowel sounds, soft. Absent: rebound, tenderness - Extremities Exam Extremities exam: Present: normal inspection. Absent: calf tenderness - Neurological Exam Neurological exam: Present: alert, oriented X3, no focal deficits, strengths equal and symetr throughout - Psychiatric Psychiatric exam: Present: normal affect, normal mood - Skin Skin exam: Present: dry, intact, normal color, warm Oncology: Obj Data - Labs CBC & Chem 7: 12/25/18 08:53 12/25/18 08:53 Consult Discharge Plan - Plan Referrals: Maisha Ruth, CORRECTIONS UNIT SUPERVISOR [Primary Care Provider] - Inpatient Charges Provider: Dr. Isa Johnson <Ace Johnson - Last Filed: 12/25/18 23:00> Date of Encounter: 12/25/18 Oncology: Obj Data - Labs CBC & Chem 7: 12/25/18 08:53 12/25/18 08:53 Inpatient Charges Provider: Dr. Isa Johnson Follow up - Inpatient: [id number] - Attending Attestation I examined this patient and my medical decision-making was reviewed with the Advanced Practice Nurse. I agree with the documented findings, disposition and treatment plan as described except to the extent set forth below. Ms. Mace has newly diagnosed squamous cell carcinoma of the lung. She has obstruction related to her cancer and has completed 2 fractions of palliative XRT. She will complete her antibiotics today. Oxygen requirements have improved, and she is breathing comfortably. I think it is reasonable to discharge home tomorrow wtih XRT to continue next week. F/U scheduled with Dr. Clark. We will sign off.
--- NOTE | 2018-12-25 19:22 | Internal Med Progress Note ---
Hospitalist Progress Note - Encounter Date of Encounter: 12/25/18 Time of Encounter: 11:00 - Subjective Interval History: Patient is a 63-year-old female who presented with abdominal pain and was transferred from [facility] due to concerns of cholelithiasis with possible choledocholithiasis During patient's hospital stay however she developed acute on chronic hypoxic respiratory failure and had to be intubated and was later able to be extubated on supplemental oxygenation. CT chest revealed significantly increased right lower lobe postobstructive collapse as well as increase in size of right suprahilar mass and numerous noncalcified bilateral pulmonary nodules which are consistent with metastatic disease as well as new moderate right pleural effusion and small left pleural effusion and small pericardial effusion. Pulmonology was following and suspected respiratory failure secondary to lung carcinoma, COPD, pneumonia and heart failure exacerbation. Physical therapy/occupational therapy has evaluated 3 the patient with recommendations for intermediate facility however patient refuses and would like to opt for home health care. Patient day 2 for palliative radiation therapy today per hematology oncology recommendations She reports a feeling much better today and requesting for discharge on 12/26/18 - Exam Vitals: Temp Pulse Resp BP Pulse Ox 97.9 F 96 17 112/70 94 12/25/18 10:21 12/25/18 10:21 12/25/18 16:24 12/25/18 10:21 12/25/18 16:24 Exam: Gen.: Nonacute distress, alert and oriented 3 ENT: Mucosal membranes moist Respiratory: Lungs are clear to auscultation bilaterally without any wheezing rhonchi or rales Cardiovascular: Normal S1 and S2 regular rate rhythm no murmurs rubs or gallops Abdomen: Soft, nontender and nondistended with positive bowel sounds Extremities: No lower extremity edema Skin: Normal color - Assessment and Plan (1) Metastatic lung carcinoma Current Visit: Yes Status: Inactive Assessment and Plan: CT chest revealed significantly increased right lower lobe postobstructive collapse as well as increase in size of right suprahilar mass and numerous noncalcified bilateral pulmonary nodules which are consistent with metastatic disease as well as new moderate right pleural effusion and small left pleural effusion and small pericardial effusion. s/p bronchoscopy and bx of RUL lesion as well as bx of AP window adenopathy which revealed moderately differentiated squamous cell carcinoma. Day 2 for palliative radiation today for Squamous cell carcinoma stage IV with bilateral metabolically active lung nodules by PET scan (2) Acute and chronic respiratory failure with hypoxia Current Visit: Yes Status: Acute Assessment and Plan: During patient's hospital stay however she developed acute on chronic hypoxic respiratory failure and had to be intubated and was later able to be extubated on supplemental oxygenation. CT chest revealed significantly increased right lower lobe postobstructive collapse as well as increase in size of right suprahilar mass and numerous n oncalcified bilateral pulmonary nodules which are consistent with metastatic disease as well as new moderate right pleural effusion and small left pleural effusion and small pericardial effusion. Pulmonology was following and suspected respiratory failure secondary to lung carcinoma COPD, pneumonia and heart failure exacerbation. Will continue patient on supplemental O2 and wean as tolerates. (3) Pneumonia Current Visit: Yes Status: Acute Assessment and Plan: CXR with RUL opacity/atelectasis and right pleural effusion. Patient completed a 10 day course of IV antibiotics Will discontinue antibiotics after today (4) COPD (chronic obstructive pulmonary disease) Current Visit: Yes Status: Acute Assessment and Plan: Suspect exacerbation with wheezing and cough. Completed steroids and ICU. IV antibiotics also completed as above (5) Cholelithiasis Current Visit: Yes Status: Acute Assessment and Plan: Initially admitted for symptoms of Cholelithiasis that was demonstrated on abdominal CT and cholecystectomy was recommended however patient went into respiratory failure requiring intubation. Medical management with pain medication and low-fat diet now recommended. (6) CHF (congestive heart failure) Current Visit: Yes Status: Acute Assessment and Plan: Echocardiogram showed LVEF of 60% with normal LV chamber structure and function in addition to mild left ventricular diastolic dysfunction without any valvular dysfunction and no evidence of pulmonary hypertension Diuresed with IV Lasix in ICU. Now euvolemic; monitor I&O and daily weight (7) Adrenal insufficiency Current Visit: Yes Status: Acute Assessment and Plan: Random cortisol level of 4.9. Received IV steroids in the ICU. Vital signs are now stable and will continue to monitor DVT Prophylaxis: Heparin subcutaneous - Time Spent with Patient Total time spent is greater than 50% in coordination of care (as documented) at patient's floor/unit and/or counseling patient: Internal Medicine: Result - Labs CBC & Chem 7: 12/25/18 08:53 12/25/18 08:53 Labs: Short CBC 12/25/18 Range/Units 08:53 WBC 5.6 (4.3-11.1) K/mcL Hgb 12.5 (11.5-15.4) g/dL Hct 38.5 (35.3-44.9) % Plt Count 150 (140-400) K/mcL BMP 12/25/18 08:53 Sodium 140 Potassium 3.5 Chloride 97 L Carbon Dioxide 40 H* BUN 9 Creatinine 0.65 Glucose 97 Calcium 9.5 Liver Function 12/25/18 Range/Units 08:53 Total Bilirubin 0.6 (0.3-1.0) mg/dL AST 29 (13-39) Units/L ALT 29 (7-52) Units/L Alkaline Phosphatase 40 (34-104) Units/L Albumin 3.3 L (3.5-5.7) g/dL - ABG Interpretation ABG results: ABG ABG pH 7.45 pH Units (7.32-7.45) 12/19/18 05:32 ABG pCO2 47 mmHg (35-45) H 12/19/18 05:32 ABG pO2 69 mmHg (85-104) L 12/19/18 05:32 ABG O2 Saturation 94 % (95-98) L 12/19/18 05:32 PT/INR, D-dimer PT 12.1 Seconds (9.4-12.1) 12/16/18 16:09 - Impressions Impressions Chest CTA 12/25/18 11:57 IMPRESSION: 1. No evidence for acute pulmonary embolism. 2. Redemonstration of right hilar mass/adenopathy with occlusion of the right upper lobe bronchus causing right upper lobe complete atelectasis which blends with the mass image difficult to exactly measure the mass. There is accompanying pulmonary metastatic nodules, mediastinal adenopathy and bilateral pleural effusions which are stable. D/ / Harsh Pugh MD / Harsh Pugh MD Interpreting Provider: Harsh Pugh MD Consult Discharge Plan - Plan Referrals: Maisha Ruth, DIE STAMPING PRESS OPERATOR [Primary Care Provider] - (1) Metastatic lung carcinoma Qualifiers: Laterality: right Qualified Code(s): C78.01 - Secondary malignant neoplasm of right lung (3) Pneumonia Qualifiers: Pneumonia type: due to unspecified organism Laterality: bilateral (4) COPD (chronic obstructive pulmonary disease) Qualifiers: COPD type: COPD with acute exacerbation Qualified Code(s): J44.1 - Chronic obstructive pulmonary disease with (acute) exacerbation (5) Cholelithiasis Qualifiers: Cholelithiasis location: gallbladder Qualified Code(s): K80.00 - Calculus of gallbladder with acute cholecystitis without obstruction (6) CHF (congestive heart failure) Qualifiers: Qualified Code(s): I50.9 - Heart failure, unspecified
[2018-12-25] MEDS: risperiDONE 1 MG TABLET PO SCH (22:07)
[2018-12-26] MEDS: Ipratropium/Albuterol Neb 3 ML IH SCH ×4 (00:33→11:03)
[2018-12-26 04:20] LABS: Hematocrit 34.7 % (35.3-44.9); Hemoglobin 11.2 g/dL (11.5-15.4); Mean Corpuscular HGB Conc 32.3 g/dL (31.6-35.5); Mean Corpuscular Hemoglobin 31.6 pg (28.0-33.3); Mean Platelet Volume 10.3 fL (9.4-12.4); Platelet Count 156 K/mcL (140-400); Red Blood Count 3.54 M/mcL (3.82-4.97); Red Cell Distribution Width 11.8 % (11.5-14.5)
[2018-12-26 04:23] LABS: Alanine Aminotransferase 24 Units/L (7-52); Albumin/Globulin Ratio 1.4 (1.1-2.2); Alkaline Phosphatase 34 Units/L (34-104); Aspartate Amino Transferase 20 Units/L (13-39); BUN/Creatinine Ratio 13 (6-26); Bilirubin,Total 0.6 mg/dL (0.3-1.0); Blood Urea Nitrogen 8 mg/dL (8-23); Calcium 8.9 mg/dL (8.6-10.3); Carbon Dioxide 36 mEq/L (23-29); Chloride 96 mEq/L (98-107); Globulin 2.2 g/dL (2.4-3.5); Glucose 146 mg/dL (70-105); Osmolality,Calculated 285 (280-300); Potassium 3.3 mEq/L (3.5-5.1); Sodium 137 mEq/L (136-145); Total Protein 5.2 g/dL (6.4-8.9); eGFR For Non-African Americans > 60 (> 60)
[2018-12-26] MEDS: *HR* Heparin 5,000 UNIT/ML VIAL SQ SCH ×3 (05:40→20:55)
[2018-12-26] MEDS: Insulin LISPRO 300 UNITS/3 ML VIAL SQ SCH ×4 (07:35→21:19)
[2018-12-26] MEDS: Budesonide/Formoterol 160/4.5 1 PUFF INH IH SCH ×2 (07:49→22:08)
[2018-12-26] MEDS: Aspirin 81 MG TAB.CHEW PO SCH (09:16)
[2018-12-26] MEDS: Sennosides/Docusate Sodium TABLET PO SCH ×2 (09:16→20:55)
[2018-12-26] MEDS: clonazePAM 1 MG TABLET PO PRN (09:21)
[2018-12-26 12:32] LABS: Basophils % 0.2 %; Eosinophils # 0.1 K/mcL (0.0-0.6); Eosinophils % 0.7 %; Hematocrit 36.2 % (35.3-44.9); Hemoglobin 11.8 g/dL (11.5-15.4); Immature Granulocytes % 0.5 % (0-4); Mean Corpuscular HGB Conc 32.6 g/dL (31.6-35.5); Mean Corpuscular Hemoglobin 31.7 pg (28.0-33.3); Mean Corpuscular Volume 97.3 fL (83.0-100.0); Mean Platelet Volume 9.9 fL (9.4-12.4); Monocytes # 0.5 K/mcL (0.0-1.3); Monocytes % 6.1 %; Neutrophils # 6.8 K/mcL (1.6-8.9); Platelet Count 164 K/mcL (140-400); Red Blood Count 3.72 M/mcL (3.82-4.97); Red Cell Distribution Width 11.9 % (11.5-14.5); Segmented Neutrophils % 80.5 %
[2018-12-26 12:49] LABS: BUN/Creatinine Ratio 15 (6-26); Blood Urea Nitrogen 9 mg/dL (8-23); Calcium 8.7 mg/dL (8.6-10.3); Carbon Dioxide 32 mEq/L (23-29); Chloride 95 mEq/L (98-107); Glucose 100 mg/dL (70-105); Osmolality,Calculated 275 (280-300); Potassium 3.5 mEq/L (3.5-5.1); Sodium 133 mEq/L (136-145); eGFR For Non-African Americans > 60 (> 60)
[2018-12-26] MEDS ORDERED: 0.9 % Sodium Chloride 500 ML IVC ONE ×2 (15:56→17:46)
[2018-12-26] MEDS: Levalbuterol Neb 1.25 MG/3 ML IH SCH ×2 (15:57→22:08)
--- NOTE | 2018-12-26 16:52 | Internal Med Progress Note ---
Hospitalist Progress Note - Encounter Date of Encounter: 12/26/18 Time of Encounter: 11:00 - Subjective Interval History: Patient is a 63-year-old female who presented with abdominal pain and was transferred from [facility] due to concerns of cholelithiasis with possible choledocholithiasis During patient's hospital stay however she developed acute on chronic hypoxic respiratory failure and had to be intubated and was later able to be extubated on supplemental oxygenation. CT chest revealed significantly increased right lower lobe postobstructive collapse as well as increase in size of right suprahilar mass and numerous noncalcified bilateral pulmonary nodules which are consistent with metastatic disease as well as new moderate right pleural effusion and small left pleural effusion and small pericardial effusion. Pulmonology was following and suspected respiratory failure secondary to lung carcinoma, COPD, pneumonia and heart failure exacerbation. Physical therapy/occupational therapy has evaluated 3 the patient with recommendations for retirement facility however patient refuses and would like to opt for home health care. Patient now receiving palliative radiation therapy today per hematology oncology recommendations Patient the morning of 12/26/18 has developed persistent tachycardia; workup for etiology and process - Exam Vitals: Temp Pulse Resp BP Pulse Ox 97.7 F 110 16 101/69 93 12/26/18 14:40 12/26/18 14:40 12/26/18 15:57 12/26/18 14:40 12/26/18 15:57 Exam: Gen.: Nonacute distress, alert and oriented 3 ENT: Mucosal membranes moist Respiratory: Lungs are clear to auscultation bilaterally without any wheezing rhonchi or rales Cardiovascular: Tachycardia but without any murmurs rubs or gallops. Abdomen: Soft, nontender and nondistended with positive bowel sounds Extremities: No lower extremity edema Skin: Normal color - Assessment and Plan (1) Tachycardia Current Visit: Yes Status: Acute Assessment and Plan: Patient this morning developed persistent tachycardia 12-lead EKG reviewed by myself showed sinus tachycardia Patient on baseline O2 requirements and repeat chest x-ray demonstrated unchanged collapsed of right upper lobe in addition to small bilateral pleural effusions with associated bibasilar atelectasis. Patient's blood pressures borderline hypotensive therefore a 500 mL bolus of normal saline was given. Will continue to monitor (2) Acute and chronic respiratory failure with hypoxia Current Visit: Yes Status: Acute Assessment and Plan: During patient's hospital stay however she developed acute on chronic hypoxic respiratory failure and had to be intubated and was later able to be extubated on supplemental oxygenation. CT chest revealed significantly increased right lower lobe postobstructive collapse as well as increase in size of right suprahilar mass and numerous noncalcified bilateral pulmonary nodules which are consistent with metastatic disease as well as new moderate right pleural effusion and small left pleural effusion and small pericardial effusion. Pulmonology was following and suspected respiratory failure secondary to lung carcinoma COPD, pneumonia and heart failure exacerbation. Patient this morning currently on baseline O2 requirements. Will continue to monitor on continuous pulse oximetry (3) Metastatic lung carcinoma Current Visit: Yes Status: Inactive Assessment and Plan: CT chest revealed significantly increased right lower lobe postobstructive collapse as well as increase in size of right suprahilar mass and numerous noncalcified bilateral pulmonary nodules which are consistent with metastatic disease as well as new moderate right pleural effusion and small left pleural effusion and small pericardial effusion. s/p bronchoscopy and bx of RUL lesion as well as bx of AP window adenopathy which revealed moderately differentiated squamous cell carcinoma. 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 Patient completed a 10 day course of IV antibiotics (5) COPD (chronic obstructive pulmonary disease) Current Visit: Yes Status: Acute Assessment and Plan: Suspect exacerbation with wheezing and cough. Completed steroids and ICU. IV antibiotics also completed as above (6) Cholelithiasis Current Visit: Yes Status: Acute Assessment and Plan: Initially admitted for symptoms of Cholelithiasis that was demonstrated on abdominal CT and cholecystectomy was recommended however patient went into respiratory failure requiring intubation. Medical management with pain medication and low-fat diet now recommended. (7) CHF (congestive heart failure) Current Visit: Yes Status: Acute Assessment and Plan: Echocardiogram showed LVEF of 60% with normal LV chamber structure and function in addition to mild left ventricular diastolic dysfunction without any valvular dysfunction and no evidence of pulmonary hypertension Diuresed with IV Lasix in ICU. Now euvolemic; monitor I&O and daily weight (8) Adrenal insufficiency Current Visit: Yes Status: Acute Assessment and Plan: Random cortisol level of 4.9. Received IV steroids in the ICU. Vital signs are now stable and will continue to monitor DVT Prophylaxis: Heparin subcutaneous - Time Spent with Patient Total time spent is greater than 50% in coordination of care (as documented) at patient's floor/unit and/or counseling patient: Internal Medicine: Result - Labs CBC & Chem 7: 12/26/18 11:40 12/26/18 11:40 Labs: Short CBC 12/26/18 12/26/18 Range/Units 03:45 11:40 WBC 5.1 8.5 D (4.3-11.1) K/mcL Hgb 11.2 L 11.8 (11.5-15.4) g/dL Hct 34.7 L 36.2 (35.3-44.9) % Plt Count 156 164 (140-400) K/mcL Neutrophils # 6.8 (1.6-8.9) K/mcL BMP 12/26/18 12/26/18 03:45 11:40 Sodium 137 133 L Potassium 3.3 L 3.5 Chloride 96 L 95 L Carbon Dioxide 36 H 32 H BUN 8 9 Creatinine 0.64 0.59 L Glucose 146 H 100 Calcium 8.9 8.7 Liver Function 12/26/18 Range/Units 03:45 Total Bilirubin 0.6 (0.3-1.0) mg/dL AST 20 (13-39) Units/L ALT 24 (7-52) Units/L Alkaline Phosphatase 34 (34-104) Units/L Albumin 3.0 L (3.5-5.7) g/dL - ABG Interpretation ABG results: ABG ABG pH 7.45 pH Units (7.32-7.45) 12/19/18 05:32 ABG pCO2 47 mmHg (35-45) H 12/19/18 05:32 ABG pO2 69 mmHg (85-104) L 12/19/18 05:32 ABG O2 Saturation 94 % (95-98) L 12/19/18 05:32 PT/INR, D-dimer PT 12.1 Seconds (9.4-12.1) 12/16/18 16:09 - Impressions Impressions Chest X-Ray 12/26/18 14:34 IMPRESSION: 1. Collapse of the right upper lobe, unchanged. 2. Small bilateral pleural effusions with associated bibasilar atelectasis. D/ / 12/26/2018 15:21:53 Alberto Monroe MD / beatrice Interpreting Provider: Alberto Monroe MD Consult Discharge Plan - Plan Referrals: Maisha Ruth, BULLET SLUG CASTING MACHINE OPERATOR [Primary Care Provider] - ___ (3) Metastatic lung carcinoma Qualifiers: Laterality: right Qualified Code(s): C78.01 - Secondary malignant neoplasm of right lung (4) Pneumonia Qualifiers: Pneumonia type: due to unspecified organism Laterality: bilateral (5) COPD (chronic obstructive pulmonary disease) Qualifiers: COPD type: COPD with acute exacerbation Qualified Code(s): J44.1 - Chronic obstructive pulmonary disease with (acute) exacerbation (6) Cholelithiasis Qualifiers: Cholelithiasis location: gallbladder Qualified Code(s): K80.00 - Calculus of gallbladder with acute cholecystitis without obstruction (7) CHF (congestive heart failure) Qualifiers: Qualified Code(s): I50.9 - Heart failure, unspecified
[2018-12-26] MEDS: OXYCODONE Oral CONC 10 MG/0.5 ML ORAL.SYG SL PRN (16:53)
[2018-12-26] MEDS: risperiDONE 1 MG TABLET PO SCH (20:55)
--- NOTE | 2018-12-26 23:02 | Event Note ---
Date of Encounter: 12/26/18 Time of Encounter: 21:04 Alerted by patient's nurse MATTIE Roach that the patient's most recent BP was 80/54. Patient received two 500 mL boluses of 0.9 with second one finishing at shift change at 19:00. Patient denied dizziness or lightheadedness. Nurse instructed to hold any BP and/or opioid pain medications for now and monitor BPs every 15 minutes times for an update me of results in real-time. Latest VS: Temp 90 8.4F, HR 106, RR 16, BP 79/53, SPO2 90% on 2 L via nasal cannula.
[2018-12-27 04:05] LABS: Hematocrit 32.2 % (35.3-44.9); Hemoglobin 10.4 g/dL (11.5-15.4); Mean Corpuscular HGB Conc 32.3 g/dL (31.6-35.5); Mean Corpuscular Hemoglobin 31.6 pg (28.0-33.3); Mean Corpuscular Volume 97.9 fL (83.0-100.0); Mean Platelet Volume 9.9 fL (9.4-12.4); Platelet Count 140 K/mcL (140-400); Red Blood Count 3.29 M/mcL (3.82-4.97); Red Cell Distribution Width 11.9 % (11.5-14.5)
[2018-12-27] MEDS: Levalbuterol Neb 1.25 MG/3 ML IH SCH ×4 (04:10→21:26)
[2018-12-27 04:24] LABS: Alanine Aminotransferase 20 Units/L (7-52); Albumin 2.9 g/dL (3.5-5.7); Albumin/Globulin Ratio 1.3 (1.1-2.2); Alkaline Phosphatase 32 Units/L (34-104); Aspartate Amino Transferase 14 Units/L (13-39); BUN/Creatinine Ratio 11 (6-26); Bilirubin,Total 0.4 mg/dL (0.3-1.0); Blood Urea Nitrogen 7 mg/dL (8-23); Calcium 8.7 mg/dL (8.6-10.3); Carbon Dioxide 31 mEq/L (23-29); Chloride 101 mEq/L (98-107); Globulin 2.3 g/dL (2.4-3.5); Glucose 191 mg/dL (70-105); Osmolality,Calculated 287 (280-300); Potassium 3.1 mEq/L (3.5-5.1); Sodium 137 mEq/L (136-145); Total Protein 5.2 g/dL (6.4-8.9); eGFR For Non-African Americans > 60 (> 60)
[2018-12-27] MEDS: *HR* Heparin 5,000 UNIT/ML VIAL SQ SCH ×3 (05:45→22:05)
[2018-12-27] MEDS: Insulin LISPRO 300 UNITS/3 ML VIAL SQ SCH ×4 (07:33→20:42)
[2018-12-27] MEDS: Aspirin 81 MG TAB.CHEW PO SCH (09:23)
[2018-12-27] MEDS: clonazePAM 1 MG TABLET PO PRN ×2 (09:23→12:32)
[2018-12-27] MEDS: Sennosides/Docusate Sodium TABLET PO SCH ×2 (09:23→20:45)
[2018-12-27] MEDS: Budesonide/Formoterol 160/4.5 1 PUFF INH IH SCH ×2 (10:55→21:26)
[2018-12-27] MEDS: OXYCODONE Oral CONC 10 MG/0.5 ML ORAL.SYG SL PRN (14:51)
--- NOTE | 2018-12-27 17:40 | Internal Med Progress Note ---
Hospitalist Progress Note - Encounter Date of Encounter: 12/27/18 Time of Encounter: 11:00 - Subjective Interval History: Patient is a 63-year-old female who presented with abdominal pain and was transferred from [facility] due to concerns of cholelithiasis with possible choledocholithiasis During patient's hospital stay however she developed acute on chronic hypoxic respiratory failure and had to be intubated and was later able to be extubated on supplemental oxygenation. CT chest revealed significantly increased right lower lobe postobstructive collapse as well as increase in size of right suprahilar mass and numerous noncalcified bilateral pulmonary nodules which are consistent with metastatic disease as well as new moderate right pleural effusion and small left pleural effusion and small pericardial effusion. Pulmonology was following and suspected respiratory failure secondary to lung carcinoma, COPD, pneumonia and heart failure exacerbation. Physical therapy/occupational therapy has evaluated 3 the patient with recommendations for [facility] however patient refuses and would like to opt for home health care. Patient now receiving palliative radiation therapy today per hematology oncology recommendations 12/27/18 Patient overnight developed hypotension which has now resolved this morning. Patient with no improvement in tachycardia. - Exam Vitals: Temp Pulse Resp BP Pulse Ox 97.8 F 108 16 113/77 92 12/27/18 15:07 12/27/18 15:07 12/27/18 16:17 12/27/18 15:07 12/27/18 16:17 Exam: Gen.: Nonacute distress, alert and oriented 3 ENT: Mucosal membranes moist Respiratory: Lungs are clear to auscultation bilaterally without any wheezing rhonchi or rales Cardiovascular: Tachycardia but without any murmurs rubs or gallops. Abdomen: Soft, nontender and nondistended with positive bowel sounds Extremities: No lower extremity edema Skin: Normal color - Assessment and Plan (1) Tachycardia Current Visit: Yes Status: Acute Assessment and Plan: Patient this morning developed persistent tachycardia 12-lead EKG reviewed by myself on 12/26/18 showed sinus tachycardia CTA of chest on 12/25/18 showed no evidence of acute pulmonary embolism Patient on baseline O2 requirements and repeat chest x-ray demonstrated unchanged collapsed of right upper lobe in addition to small bilateral pleural e ffusions with associated bibasilar atelectasis. Will continue to monitor (2) Acute and chronic respiratory failure with hypoxia Current Visit: Yes Status: Acute Assessment and Plan: During patient's hospital stay however she developed acute on chronic hypoxic respiratory failure and had to be intubated and was later able to be extubated on supplemental oxygenation. CT chest revealed significantly increased right lower lobe postobstructive collapse as well as increase in size of right suprahilar mass and numerous noncalcified bilateral pulmonary nodules which are consistent with metastatic disease as well as new moderate right pleural effusion and small left pleural effusion and small pericardial effusion. Pulmonology was following and suspected respiratory failure secondary to lung carcinoma COPD, pneumonia and heart failure exacerbation. Patient this morning currently on baseline O2 requirements. Will continue to monitor on continuous pulse oximetry (3) Metastatic lung carcinoma Current Visit: Yes Status: Inactive Assessment and Plan: CT chest revealed significantly increased right lower lobe postobstructive collapse as well as increase in size of right suprahilar mass and numerous nonc alcified bilateral pulmonary nodules which are consistent with metastatic disease as well as new moderate right pleural effusion and small left pleural effusion and small pericardial effusion. s/p bronchoscopy and bx of RUL lesion as well as bx of AP window adenopathy which revealed moderately differentiated squamous cell carcinoma. 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 Patient completed a 10 day course of IV antibiotics (5) COPD (chronic obstructive pulmonary disease) Current Visit: Yes Status: Acute Assessment and Plan: Suspect exacerbation with wheezing and cough. Completed steroids and ICU. IV antibiotics also completed as above (6) Cholelithiasis Current Visit: Yes Status: Acute Assessment and Plan: Initially admitted for symptoms of Cholelithiasis that was demonstrated on abdominal CT and cholecystectomy was recommended however patient went into respiratory failure requiring intubation. Medical management with pain medication and low-fat diet now recommended. (7) CHF (congestive heart failure) Current Visit: Yes Status: Acute Assessment and Plan: Echocardiogram showed LVEF of 60% with normal LV chamber structure and function in addition to mild left ventricular diastolic dysfunction without any valvular dysfunction and no evidence of pulmonary hypertension Diuresed with IV Lasix in ICU. Now euvolemic; monitor I&O and daily weight (8) Adrenal insufficiency Current Visit: Yes Status: Acute Assessment and Plan: Random cortisol level of 4.9. Received IV steroids in the ICU. Vital signs are now stable and will continue to monitor DVT Prophylaxis: Heparin subcutaneous - Time Spent with Patient Total time spent is greater than 50% in coordination of care (as documented) at patient's floor/unit and/or counseling patient: Internal Medicine: Result - Labs CBC & Chem 7: 12/27/18 03:50 12/27/18 03:50 Labs: Short CBC 12/27/18 Range/Units 03:50 WBC 3.9 L D (4.3-11.1) K/mcL Hgb 10.4 L (11.5-15.4) g/dL Hct 32.2 L (35.3-44.9) % Plt Count 140 (140-400) K/mcL BMP 12/27/18 03:50 Sodium 137 Potassium 3.1 L Chloride 101 Carbon Dioxide 31 H BUN 7 L Creatinine 0.63 Glucose 191 H Calcium 8.7 Liver Function 12/27/18 Range/Units 03:50 Total Bilirubin 0.4 (0.3-1.0) mg/dL AST 14 (13-39) Units/L ALT 20 (7-52) Units/L Alkaline Phosphatase 32 L (34-104) Units/L Albumin 2.9 L (3.5-5.7) g/dL - ABG Interpretation ABG results: ABG ABG pH 7.45 pH Units (7.32-7.45) 12/19/18 05:32 ABG pCO2 47 mmHg (35-45) H 12/19/18 05:32 ABG pO2 69 mmHg (85-104) L 12/19/18 05:32 ABG O2 Saturation 94 % (95-98) L 12/19/18 05:32 PT/INR, D-dimer PT 12.1 Seconds (9.4-12.1) 12/16/18 16:09 Consult Discharge Plan - Plan Referrals: Maisha Ruth, PROPOSAL ENGINEER [Primary Care Provider] - (3) Metastatic lung carcinoma Qualifiers: Laterality: right Qualified Code(s): C78.01 - Secondary malignant neoplasm of right lung (4) Pneumonia Qualifiers: Pneumonia type: due to unspecified organism Laterality: bilateral (5) COPD (chronic obstructive pulmonary disease) Qualifiers: COPD type: COPD with acute exacerbation Qualified Code(s): J44.1 - Chronic obstructive pulmonary disease with (acute) exacerbation (6) Cholelithiasis Qualifiers: Cholelithiasis location: gallbladder Qualified Code(s): K80.00 - Calculus of gallbladder with acute cholecystitis without obstruction (7) CHF (congestive heart failure) Qualifiers: Qualified Code(s): I50.9 - Heart failure, unspecified
[2018-12-27] MEDS: risperiDONE 1 MG TABLET PO SCH (20:46)
[2018-12-28] MEDS: Levalbuterol Neb 1.25 MG/3 ML IH SCH ×3 (03:53→15:24)
[2018-12-28] MEDS: *HR* Heparin 5,000 UNIT/ML VIAL SQ SCH (05:22)
[2018-12-28] MEDS: Budesonide/Formoterol 160/4.5 1 PUFF INH IH SCH (10:02)
[2018-12-28] MEDS: Aspirin 81 MG TAB.CHEW PO SCH (10:21)
[2018-12-28] MEDS: Insulin LISPRO 300 UNITS/3 ML VIAL SQ SCH ×2 (10:21→13:19)
[2018-12-28] MEDS: Sennosides/Docusate Sodium TABLET PO SCH (10:23)
[2018-12-28] MEDS: clonazePAM 1 MG TABLET PO PRN (10:25)
[2018-12-28 12:46] VITALS: BP 127/86
[2018-12-28] MEDS: OXYCODONE Oral CONC 10 MG/0.5 ML ORAL.SYG SL PRN (13:19)
--- NOTE | 2018-12-28 15:23 | Discharge Summary ---
- NOTES TO OUTPATIENT PROVIDER Notes to Outpatient Provider: Follow up with hematology and oncology for management of metastatic lung cancer in general surgery for cholelithiasis Orders not resulted at time of discharge: Pending orders 12/26/18 11:12 EKG [ECG 12 lead ECG] [ECG] Stat 12/28/18 19:00 Potassium Routine Date of Encounter: 12/28/18 Time of Encounter: 11:00 - Discharge Diagnosis (1) Tachycardia Priority: Primary Status: Acute (2) Acute and chronic respiratory failure with hypoxia Priority: Primary Status: Acute (3) Metastatic lung carcinoma Priority: Primary Status: Inactive Qualifiers: Laterality: right Qualified Code(s): C78.01 - Secondary malignant neoplasm of right lung (4) Pneumonia Priority: Primary Status: Acute Qualifiers: Pneumonia type: due to unspecified organism Laterality: bilateral Lung location: unspecified part of lung Qualified Code(s): J18.9 - Pneumonia, unspecified organism (5) COPD (chronic obstructive pulmonary disease) Priority: Primary Status: Acute Qualifiers: COPD type: COPD with acute exacerbation Qualified Code(s): J44.1 - Chronic obstructive pulmonary disease with (acute) exacerbation (6) Cholelithiasis Priority: Primary Status: Acute Qualifiers: Cholelithiasis location: gallbladder Qualified Code(s): K80.00 - Calculus of gallbladder with acute cholecystitis without obstruction (7) CHF (congestive heart failure) Priority: Primary Status: Acute Qualifiers: Qualified Code(s): I50.9 - Heart failure, unspecified (8) Adrenal insufficiency Priority: Secondary Status: Acute Hospital course: Patient is a 63-year-old female with past medical history significant for squamous cell lung cancer, COPD, diabetes who presented as a transfer from [facility] due to finance concerning for cholelithiasis and possible choledocholelithiasis. She reported that her symptoms days ago. She had nausea, vomiting, abdominal pain, and diarrhea. She describes abdominal pain as a stabbing pain with the sensation that "pliers" are being twisted in her stomach. The pain is located in her epigastric region and radiates across her stomach. At [facility], initial vitals were temperature 97.5, heart rate 128, BP 78/60, SpO2 95%. WBC 12.7, hemoglobin 17.8, platelets to 96, sodium 122, potassium 3.4, calcium 11.5, troponin 0.09, D dimer 438, lactic acid 1.7. Urinalysis demonstrating protein in ketones. Chest x-ray demonstrating right hilar mass and nodules that is similar to prior chest x-ray. Abdominal CT demonstrating cholelithiasis with gallbladder wall thickening. Head CT unremarkable for intracranial abnormality. ED physicians spoke with Dr. sheppard the general surgeon who agreed with transferred to [facility] for further evaluation. The patient was given ertapenem prior to transfer along with 2 L IV fluids, aspirin. During patients hospital stay she was evaluated by general surgery with plans for cholecystectomy for cholelithiasis however patient developed acute hypoxic respiratory failure and had to be intubated in the ICU. Patient was later extubated and treated for right upper lobe pneumonia with a 10 day course of IV antibiotics. Hematology oncology was also consulted for management of patients metastatic lung carcinoma and she began palliative radiation therapy. Patient will be discharged to continue with radiation therapy. - Time Spent with Patient Total time spent providing and/or coordinating discharge services: - Discharge Medications Home Medications: Budesonide/Formoterol 160/4.5 [Symbicort 160/4.5] 2 puff IH BIDR 12/14/18 [History] Cilostazol [Pletal] 100 mg PO BID 12/14/18 [History] Cyclobenzaprine [Flexeril] 10 mg PO DAILY 12/14/18 [History] HYDROcodone/Acet 7.5/325 mg [[place] 7.5-325 mg] 1 tab PO Q6H PRN 12/14/18 [History] Lipase/Protease/Amylase [Maryann Wilks 12,000 Units Capsule] 2 each PO ACHS 12/14/18 [History] Zolpidem [Ambien] 10 mg PO HS 12/14/18 [History] clonazePAM [Clonazepam] 1 mg PO QID PRN 12/14/18 [History] metFORMIN [Glucophage] 500 mg PO HS 12/14/18 [History] risperiDONE [Risperidone] 1 mg PO HS 12/14/18 [History] Citalopram [CeleXA] 40 mg PO DAILY 12/15/18 [History] Clopidogrel [Plavix] 75 mg PO DAILY 12/15/18 [History] Doxepin [Sinequan] 75 mg PO HS 12/15/18 [History] Simvastatin [Zocor] 40 mg PO HS 12/15/18 [History] lamoTRIgine [Lamictal Xr] 100 mg PO DAILY 12/15/18 [History] Allergies/Adverse Reactions: Allergy/AdvReac Type Severity Reaction Status Date / Time Penicillins Allergy Hives Verified 12/09/18 10:57 Date of admission: 12/15/18 16:25 Primary care physician: Maisha Ruth CNP Consults: 12/14/18 23:02 Consult to Surgery [CONS] Routine Consulting Provider: Surgery Shira Surg Conor Sheppard Reason for Consult: Abdominal CT demonstrating Cholelithiasis and gallbladder wall thickening. [facility] ED physician contacted Dr. Sheppard. Call Completed: Yes 12/15/18 09:13 Consult to Nurse Navigator [CONS] Routine Comment: COPD 12/15/18 12:38 Consult to Cardiology [CONS] Routine Comment: Consulting Provider: Cardiology Negrita Reason for Consult: surgical risk evaluation Call Completed: Yes 12/15/18 14:57 Consult to Critical Care [CONS] Stat Consulting Provider: Pulm Crit Care & Sleep Negrita Reason for Consult: hypotension Call Completed: Yes 12/15/18 15:11 Consult to Invasive Line Access Team [CONS] Routine Reason for Consult: low bp, possiblity of decline Line Type: EPIV 12/16/18 16:51 Consult to Oncology [CONS] Routine Consulting Provider: Oncology [facility] Reason for Consult: sq cell carcinoma Call Completed: Yes 12/17/18 13:48 Consult to Nutrition [CONS] Routine Comment: Consulting Provider: NUTRITION Reason for Dietary Consult: Tube Feed Start & Manage 12/21/18 08:09 Consult to Occupational Therapy [CONS] Routine Comment: Evaluate, develop and implement POC Reason for Consult: weakness Does patient have active BEDREST order?: No Is patient medically & hemodynamically stable?: Yes Consult to Physical Therapy [CONS] Routine Comment: Evaluate, develop and implement POC Reason for Consult: weakness Does patient have active BEDREST order?: No Is patient medically & hemodynamically stable?: Yes 12/21/18 19:17 Consult to Oncology Radiation [CONS] Routine Consulting Provider: Oncology Radiation Negrita Reason for Consult: consideration for palliative radiotherapy to RUL Call Completed: Yes 12/22/18 17:32 Consult to Marketing Data Specialist [CONS] Routine Reason for SW Consult: establish home needs, need assistance with transportation to radiation treatments and oncology follow up - Constitutional Vitals: Temp Pulse Resp BP Pulse Ox 97.6 F 104 18 127/86 97 12/28/18 12:26 12/28/18 12:26 12/28/18 12:26 12/28/18 12:26 12/28/18 12:26 General appearance: Present: A&O X 3, pleasant, no acute distress Exam: Gen.: Nonacute distress, alert and oriented 3 ENT: Mucosal membranes moist Respiratory: Lungs are clear to auscultation bilaterally without any wheezing rhonchi or rales Cardiovascular: Tachycardia but without any murmurs rubs or gallops. Abdomen: Soft, nontender and nondistended with positive bowel sounds Extremities: No lower extremity edema Skin: Normal color - Patient Status Disposition: Home Health Service - Discharge Instructions Instructions: Heart Failure (DC) Follow Up With: Maisha Ruth MARBLEIZER [Primary Care Provider] -
--- NOTE | 2018-12-28 15:24 | Physician Discharge Referral ---
Home Health/Hosp Referral Info Transfer to: Home Health - Diagnosis (1) Tachycardia Status: Acute (2) Acute and chronic respiratory failure with hypoxia Status: Acute (3) Metastatic lung carcinoma Status: Inactive (4) Pneumonia Status: Acute (5) COPD (chronic obstructive pulmonary disease) Status: Acute (6) Cholelithiasis Status: Acute (7) CHF (congestive heart failure) Status: Acute (8) Adrenal insufficiency Status: Acute - Respiratory Orders Smoking Cessation: Smoking cessation has been advised. For more information, call the [place] Tobacco Quit Line at 6-675-EIKQ-NOW. - Services Needed Following services are medically necessary services: Physical Therapy, Occupational Therapy - Transfer Medications Home Medications: Budesonide/Formoterol 160/4.5 [Symbicort 160/4.5] 2 puff IH BIDR 12/14/18 [History] Cilostazol [Pletal] 100 mg PO BID 12/14/18 [History] Cyclobenzaprine [Flexeril] 10 mg PO DAILY 12/14/18 [History] HYDROcodone/Acet 7.5/325 mg [[place] 7.5-325 mg] 1 tab PO Q6H PRN 12/14/18 [History] Lipase/Protease/Amylase [[place] Dr 12,000 Units Capsule] 2 each PO ACHS 12/14/18 [History] Zolpidem [Ambien] 10 mg PO HS 12/14/18 [History] clonazePAM [Clonazepam] 1 mg PO QID PRN 12/14/18 [History] metFORMIN [Glucophage] 500 mg PO HS 12/14/18 [History] risperiDONE [Risperidone] 1 mg PO HS 12/14/18 [History] Citalopram [CeleXA] 40 mg PO DAILY 12/15/18 [History] Clopidogrel [Plavix] 75 mg PO DAILY 12/15/18 [History] Doxepin [Sinequan] 75 mg PO HS 12/15/18 [History] Simvastatin [Zocor] 40 mg PO HS 12/15/18 [History] lamoTRIgine [Lamictal Xr] 100 mg PO DAILY 12/15/18 [History] Allergies/Adverse Reactions: Allergy/AdvReac Type Severity Reaction Status Date / Time Penicillins Allergy Hives Verified 12/09/18 10:57 Certification: Further, I certify that my clinical findings support that this patient is homebound (i.e. absences from home require considerable and taxing effort and are for medical reasons or gnosticism services or infrequently or short duration when for other reasons) because: Homebound Reason: Patient requires assistance of a person or device to safely leave home Attestation: My signature below is to certify that this patient is under my care and that I, or nurse practitioner, or a physician's vector control assistant working with me, has a [id number] encounter with this patient.
--- NOTE | 2018-12-29 14:00 | Electrocardiograph Report ---
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
== END 2018-12-28 17:04 | disposition home health service (06) | DRG 444 ==
LOC: 2NNU 19:36 → SUATTDRO 19:36 → INTOOBSV 19:36 → SUATTDRO 12-15 16:25 → ICNU 12-16 15:21 → 3ANU 12-21 15:36
PROVIDERS: ADMIT Hospitalist; ATTEND Hospitalist
PROC: ENDOBRF (2018-12-17 17:30)

== ENCOUNTER 2019-01-06 15:41 | Inpatient (IN) ==
[2019-01-06 16:45] LABS: Basophils % 0.4 %; Eosinophils % 0.6 %; Hematocrit 39.9 % (35.3-44.9); Hemoglobin 13.5 g/dL (11.5-15.4); Immature Granulocytes % 0.6 % (0-4); Lymphocytes # 0.6 K/mcL (0.6-4.6); Lymphocytes % 10.4 %; Mean Corpuscular HGB Conc 33.8 g/dL (31.6-35.5); Mean Corpuscular Hemoglobin 31.4 pg (28.0-33.3); Mean Corpuscular Volume 92.8 fL (83.0-100.0); Mean Platelet Volume 9.2 fL (9.4-12.4); Monocytes # 0.3 K/mcL (0.0-1.3); Monocytes % 6.3 %; Neutrophils # 4.4 K/mcL (1.6-8.9); Platelet Count 276 K/mcL (140-400); Red Cell Distribution Width 11.9 % (11.5-14.5); Segmented Neutrophils % 81.7 %
--- NOTE | 2019-01-06 16:59 | Emergency Department Note ---
Disposition Clinical Impression: Acute exacerbation of chronic obstructive airways disease, CHF exacerbation, Cholelithiasis, Pericardial effusion Disposition: Admitted As Inpatient Condition: Undetermined General Adult HPI - General Chief complaint: ED Shortness of Breath/Dyspnea Stated complaint: SOB/n/v Time Seen by Provider: 01/06/19 16:47 Source: patient Limitations: no limitations - History of Present Illness Pain Scale: 7 - Related Data Home Medications Medication Instructions Recorded Confirmed RX: Budesonide/Formoterol 160/4.5 2 puff IH BIDR 12/14/18 01/07/19 [Symbicort 160/4.5] RX: Cilostazol [Pletal] 100 mg PO BID 12/14/18 01/07/19 RX: Cyclobenzaprine [Flexeril] 10 mg PO DAILY PRN 12/14/18 01/07/19 RX: HYDROcodone/Acet 7.5/325 mg 1 tab PO Q6H PRN 12/14/18 01/07/19 [[place] 7.5-325 mg] RX: Zolpidem [Ambien] 10 mg PO HS 12/14/18 01/07/19 RX: clonazePAM [Clonazepam] 1 mg PO QID PRN 12/14/18 01/07/19 RX: metFORMIN [Glucophage] 500 mg PO HS 12/14/18 01/07/19 RX: risperiDONE [Risperidone] 1 mg PO HS 12/14/18 01/07/19 RX: Citalopram [CeleXA] 40 mg PO DAILY 12/15/18 01/07/19 RX: Clopidogrel [Plavix] 75 mg PO DAILY 12/15/18 01/07/19 RX: Doxepin [Sinequan] 75 mg PO HS 12/15/18 01/07/19 RX: Simvastatin [Zocor] 40 mg PO HS 12/15/18 01/07/19 RX: lamoTRIgine [Lamictal Xr] 100 mg PO DAILY 12/15/18 01/07/19 Aspirin [Lo-Dose Aspirin EC] 81 mg PO DAILY 01/05/19 01/07/19 Lipase/Protease/Amylase [Maryann Wilks 8 each PO TIDWM 01/07/19 01/07/19 3,000 Units Capsule] Allergies Allergy/AdvReac Type Severity Reaction Status Date / Time Penicillins Allergy Hives Verified 01/05/19 13:25 Past Medical History - Past Medical History Medical history: Reports: cancer, CHF, COPD, coronary artery disease, diabetes, hyperlipidemia, hypertension, migraine, peripheral artery disease Surgical history: Reports: angioplasty/stent, carotid endarterectomy, other, vascular surgery, LE stent (s), LE vascular intervention Psychiatric history: Reports: anxiety, bipolar, depression, panic disorder - Social History Smoking Status: Current every day smoker Smokeless Tobacco Status: No Alcohol use: Reports: rarely Drug use: Reports: none Physical Exam - General Limitations: no limitations General appearance: alert Course Vital Signs Temperature 98.3 F 01/06/19 15:59 Pulse Rate 136 01/06/19 15:59 Respiratory Rate 22 01/06/19 15:59 Blood Pressure 139/93 01/06/19 15:59 O2 Sat by Pulse Oximetry 94 01/06/19 15:59 Temperature 98.1 F 01/08/19 08:28 Pulse Rate 131 01/08/19 08:45 Respiratory Rate 24 01/08/19 09:25 Blood Pressure 151/100 01/08/19 08:45 O2 Sat by Pulse Oximetry 94 01/08/19 09:25 Oxygen Delivery Oxygen Delivery Nasal Cannula Medical Decision Making - Lab Data Result diagrams: 01/08/19 00:03 01/08/19 04:30 Lab Results 01/06/19 01/06/19 01/06/19 Range/Units 16:27 16:27 16:27 WBC 5.4 (4.3-11.1) K/mcL RBC 4.30 (3.82-4.97) M/mcL Hgb 13.5 (11.5-15.4) g/dL Hct 39.9 (35.3-44.9) % MCV 92.8 (83.0-100.0) fL MCH 31.4 (28.0-33.3) pg MCHC 33.8 (31.6-35.5) g/dL RDW 11.9 (11.5-14.5) % Plt Count 276 (140-400) K/mcL MPV 9.2 L (9.4-12.4) fL Immature Gran % 0.6 (0-4) % Seg Neutrophils % 81.7 % Lymphocytes % 10.4 % Monocytes % 6.3 % Eosinophils % 0.6 % Basophils % 0.4 % Neutrophils # 4.4 (1.6-8.9) K/mcL Lymphocytes # 0.6 (0.6-4.6) K/mcL Monocytes # 0.3 (0.0-1.3) K/mcL Eosinophils # 0.0 (0.0-0.6) K/mcL Basophils # 0.0 (0.0-0.2) K/mcL PT 11.4 (9.4-12.1) Seconds INR 1.0 APTT 60.1 H (26.0-36.0) Seconds Sodium 138 (136-145) mEq/L Potassium 4.0 (3.5-5.1) mEq/L Chloride 102 (98-107) mEq/L Carbon Dioxide 28 (23-29) mEq/L BUN 7 L (8-23) mg/dL Creatinine 0.54 L (0.60-1.20) mg/dL Est GFR ( Amer) > 60 (> 60) Est GFR (Non-Af Amer) > 60 (> 60) BUN/Creatinine Ratio 13 (6-26) Glucose 143 H (70-105) mg/dL Calculated Osmolality 286 (280-300) Lactic Acid (0.5-2.2) mmol/L Calcium 9.4 (8.6-10.3) mg/dL Total Bilirubin 0.4 (0.3-1.0) mg/dL Direct Bilirubin 0.1 (0.0-0.2) mg/dL Indirect Bilirubin 0.3 (0.0-1.2) mg/dL AST 13 (13-39) Units/L ALT 11 (7-52) Units/L Alkaline Phosphatase 54 (34-104) Units/L Troponin I 0.04 H* (< 0.04) ng/mL B-Natriuretic Peptide (Less than 100) pg/mL Serum Total Protein 6.9 (6.4-8.9) g/dL Albumin 3.9 (3.5-5.7) g/dL Globulin 3.0 (2.4-3.5) g/dL Albumin/Globulin Ratio 1.3 (1.1-2.2) 01/06/19 01/06/19 Range/Units 16:27 16:27 WBC (4.3-11.1) K/mcL RBC (3.82-4.97) M/mcL Hgb (11.5-15.4) g/dL Hct (35.3-44.9) % MCV (83.0-100.0) fL MCH (28.0-33.3) pg MCHC (31.6-35.5) g/dL RDW (11.5-14.5) % Plt Count (140-400) K/mcL MPV (9.4-12.4) fL Immature Gran % (0-4) % Seg Neutrophils % % Lymphocytes % % Monocytes % % Eosinophils % % Basophils % % Neutrophils # (1.6-8.9) K/mcL Lymphocytes # (0.6-4.6) K/mcL Monocytes # (0.0-1.3) K/mcL Eosinophils # (0.0-0.6) K/mcL Basophils # (0.0-0.2) K/mcL PT (9.4-12.1) Seconds INR APTT (26.0-36.0) Seconds Sodium (136-145) mEq/L Potassium (3.5-5.1) mEq/L Chloride (98-107) mEq/L Carbon Dioxide (23-29) mEq/L BUN (8-23) mg/dL Creatinine (0.60-1.20) mg/dL Est GFR ( Amer) (> 60) Est GFR (Non-Af Amer) (> 60) BUN/Creatinine Ratio (6-26) Glucose (70-105) mg/dL Calculated Osmolality (280-300) Lactic Acid 0.5 (0.5-2.2) mmol/L Calcium (8.6-10.3) mg/dL Total Bilirubin (0.3-1.0) mg/dL Direct Bilirubin (0.0-0.2) mg/dL Indirect Bilirubin (0.0-1.2) mg/dL AST (13-39) Units/L ALT (7-52) Units/L Alkaline Phosphatase (34-104) Units/L Troponin I (< 0.04) ng/mL B-Natriuretic Peptide 452 H (Less than 100) pg/mL Serum Total Protein (6.4-8.9) g/dL Albumin (3.5-5.7) g/dL Globulin (2.4-3.5) g/dL Albumin/Globulin Ratio (1.1-2.2) Attestation Statement - Attestation Attestation: I examined this patient and my medical decision-making was reviewed with the Resident Physician. I agree with the documented findings, disposition and treatment plan as described except to the extent set forth below. [id number] time provided Patient arrives complaining of abdominal pain. She appears uncomfortable on exam. Labs resulted as far as drawn at triage reviewed by me. Patient evaluated in conjunction with the resident physician Dr. Schaefer
[2019-01-06 17:01] LABS: Prothrombin Time 11.4 Seconds (9.4-12.1)
[2019-01-06 17:03] LABS: Alanine Aminotransferase 11 Units/L (7-52); Albumin 3.9 g/dL (3.5-5.7); Albumin/Globulin Ratio 1.3 (1.1-2.2); Alkaline Phosphatase 54 Units/L (34-104); Aspartate Amino Transferase 13 Units/L (13-39); BUN/Creatinine Ratio 13 (6-26); Bilirubin,Direct 0.1 mg/dL (0.0-0.2); Bilirubin,Indirect 0.3 mg/dL (0.0-1.2); Bilirubin,Total 0.4 mg/dL (0.3-1.0); Blood Urea Nitrogen 7 mg/dL (8-23); Calcium 9.4 mg/dL (8.6-10.3); Carbon Dioxide 28 mEq/L (23-29); Chloride 102 mEq/L (98-107); Glucose 143 mg/dL (70-105); Osmolality,Calculated 286 (280-300); Sodium 138 mEq/L (136-145); Total Protein 6.9 g/dL (6.4-8.9); eGFR For Non-African Americans > 60 (> 60)
[2019-01-06] MEDS ORDERED: methylPREDNISolone 125 MG/2 ML VIAL IVP ONE (17:03)
[2019-01-06] MEDS ORDERED: Ipratropium/Albuterol Neb 3 ML IH ONE (17:03)
[2019-01-06 17:04] LABS: Activated Partial Thrombo Time 60.1 Seconds (26.0-36.0)
[2019-01-06 17:11] LABS: Troponin I 0.04 ng/mL (< 0.04)
--- NOTE | 2019-01-06 17:27 | Emergency Department Note ---
Disposition Clinical Impression: Acute exacerbation of chronic obstructive airways disease, Pericardial effusion CHF exacerbation Qualifiers: Heart failure type: systolic Qualified Code(s): I50.23 - Acute on chronic systolic (congestive) heart failure Cholelithiasis Qualifiers: Cholelithiasis location: gallbladder Cholecystitis presence: without cholecystitis Biliary obstruction: without biliary obstruction Qualified Code(s): K80.20 - Calculus of gallbladder without cholecystitis without obstruction Disposition: Admitted As Inpatient Condition: Undetermined Referrals: Maisha Ruth CNP [Primary Care Provider] - Forms: ED Satisfaction Letter Time of Disposition: 18:56 SOB HPI - General Chief Complaint: ED Shortness of Breath/Dyspnea Stated Complaint: SOB/n/v Time Seen by Provider: 01/06/19 16:47 Source: patient Mode of arrival: ambulatory Limitations: no limitations Nursing Notes Reviewed: Yes Vital Signs Reviewed: Yes - History of Present Illness 63-year-old female with history of COPD, CHF, chronic abdominal pain secondary to gallbladder, arrives to the emergency department multiple complaints. The patient states this started feeling short of breath earlier today. Patient denied any associated chest pain. In addition the patient was noted to have right upper quadrant abdominal pain and right side abdominal pain. Patient states this feels similar to previous gallbladder issues in the past. Patient was being evaluated for this previously but was admitted to the hospital secondary to respiratory distress respiratory fair subsequently intubated in the ICU. Patient denies any bowel leg swelling, history of DVT or PE, hemoptysis. The patient is in mild respiratory distress evaluation with audible wheezing on auscultation. The patient does have 2 L nasal cannula chores [id number]. Patient denies any other complaints at this time. - Related Data Home Medications Medication Instructions Recorded Confirmed Budesonide/Formoterol 160/4.5 2 puff IH BIDR 12/14/18 01/05/19 [Symbicort 160/4.5] Cilostazol [Pletal] 100 mg PO BID 12/14/18 01/05/19 Cyclobenzaprine [Flexeril] 10 mg PO DAILY 12/14/18 01/05/19 HYDROcodone/Acet 7.5/325 mg [[place] 1 tab PO Q6H PRN 12/14/18 01/05/19 7.5-325 mg] Zolpidem [Ambien] 10 mg PO HS 12/14/18 01/05/19 clonazePAM [Clonazepam] 1 mg PO QID PRN 12/14/18 01/05/19 metFORMIN [Glucophage] 500 mg PO HS 12/14/18 01/05/19 risperiDONE [Risperidone] 1 mg PO HS 12/14/18 01/05/19 Citalopram [CeleXA] 40 mg PO DAILY 12/15/18 01/05/19 Clopidogrel [Plavix] 75 mg PO DAILY 12/15/18 01/05/19 Doxepin [Sinequan] 75 mg PO HS 12/15/18 01/05/19 Simvastatin [Zocor] 40 mg PO HS 12/15/18 01/05/19 lamoTRIgine [Lamictal Xr] 100 mg PO DAILY 12/15/18 01/05/19 Aspirin [Lo-Dose Aspirin EC] 81 mg PO DAILY 01/05/19 01/05/19 Previous Rx's Medication Instructions Recorded Dexamethasone [Decadron] 4 mg PO BID PRN #45 tab 01/05/19 Lidocaine/Prilocaine [[place]ml[place]] 1 appl TP AD PRN #30 gm 01/05/19 Magic Mouthwash [Magic Mouthwash 10 ml PO QID PRN #240 ml 01/05/19 BLM] Ondansetron HCl 8 mg PO Q8H PRN #45 tablet 01/05/19 Prochlorperazine Maleate 10 mg PO Q6HR PRN #60 tablet 01/05/19 [Compazine] Allergies Allergy/AdvReac Type Severity Reaction Status Date / Time Penicillins Allergy Hives Verified 01/05/19 13:25 All systems ED: reviewed and negative except as stated. Constitutional: Denies: fever, chills, weakness ENT ED: Denies: dysphagia Cardiovascular: Reports: dyspnea on exertion. Denies: chest pain, orthopnea, edema Respiratory: Reports: dyspnea. Denies: cough, wheezes, sputum production Gastrointestinal: Denies: abdominal pain, nausea, vomiting Genitourinary: Denies: urgency, dysuria Musculoskeletal: Denies: back pain, neck pain Integumentary: Denies: rash Neurological: Denies: headache Past Medical History - Past Medical History Attestation: Yes The following information was validated with the patient. Source: patient, old records reviewed Medical history: Reports: cancer, CHF, COPD, coronary artery disease, diabetes, hyperlipidemia, hypertension, migraine, peripheral artery disease Surgical history: Reports: angioplasty/stent, carotid endarterectomy, other, vascular surgery, LE stent (s), LE vascular intervention Psychiatric history: Reports: anxiety, bipolar, depression, panic disorder - Social History Smoking Status: Current every day smoker Smokeless Tobacco Status: No Alcohol use: Reports: rarely Drug use: Reports: none Physical Exam - General Limitations: no limitations General appearance: alert, in distress (mild respiratory) - Head Head exam: atraumatic, normocephalic, normal inspection - Eye Eye exam: Present: normal appearance, PERRL, EOMI - ENT ENT exam: normal exam, normal oropharynx, mucous membranes moist - Neck Neck exam: Present: normal inspection, full ROM, trachea midline - Chest Chest inspection: Present: normal inspection, symmetric chest wall rise - Respiratory Respiratory exam: Present: respiratory distress (mild respiratory), wheezes. Absent: accessory muscle use - Cardiovascular Cardiovascular exam: Present: normal rhythm, tachycardia, normal heart sounds - Abdominal Exam Abdominal exam: Present: soft, tenderness, Miller's sign. Absent: distention, guarding, rebound, rigidity, Rovsing's sign, tenderness at McBurney's Point Abdominal tenderness: Present: RUQ, moderate - Extremities Exam Extremities exam: Present: normal inspection, full ROM. Absent: tenderness, pedal edema - Neurological Exam Neurological exam: Present: alert, oriented X3 - Skin Skin exam: Present: warm, dry, intact, normal color Course Vital Signs Temperature 98.3 F 01/06/19 15:59 Pulse Rate 136 01/06/19 15:59 Respiratory Rate 22 01/06/19 15:59 Blood Pressure 139/93 01/06/19 15:59 O2 Sat by Pulse Oximetry 94 01/06/19 15:59 Temperature 98.3 F 01/06/19 15:59 Pulse Rate 22 01/06/19 18:40 Respiratory Rate 18 01/06/19 18:40 Blood Pressure 116/98 01/06/19 18:40 O2 Sat by Pulse Oximetry 92 01/06/19 18:40 Oxygen Delivery Oxygen Delivery Nasal Cannula Shortness of Breath/Dyspnea - MDM Narrative Medical decision making narrative: Patient's evaluation in the emergency department demonstrates numerous acute findings. The patient does appear to have a small pericardial effusion. There are no signs of acute cholecystitis on gallbladder ultrasound. There was concern for possible paracolic cystic fluid on CT scan but given the gallbladder having wall within normal limits as well as normal common bile duct and no leukocytosis I am not concerned about cholecystitis at this time. The case was discussed with previous surgeon who had been consulted on the case, Dr. sheppard. He stated the patient is a poor candidate for surgery. We will admit the patient to the hospital given her respiratory status at this time. The patient was made aware and agrees to plan. No further questions or concerns noted. The patient does have a mildly elevated troponin at 0.04. The patient will likely need an echocardiogram given the patient's small pericardial effusion. Patient is in no other extremities at this time after receiving breathing treatments here in the emergency department. Accepted by Dr. Interiano. - Lab Data Lab results reviewed: Yes I reviewed the patient's lab results. Result diagrams: 01/06/19 16:27 01/06/19 16:27 Lab Results 01/06/19 01/06/19 01/06/19 Range/Units 16:27 16:27 16:27 WBC 5.4 (4.3-11.1) K/mcL RBC 4.30 (3.82-4.97) M/mcL Hgb 13.5 (11.5-15.4) g/dL Hct 39.9 (35.3-44.9) % MCV 92.8 (83.0-100.0) fL MCH 31.4 (28.0-33.3) pg MCHC 33.8 (31.6-35.5) g/dL RDW 11.9 (11.5-14.5) % Plt Count 276 (140-400) K/mcL MPV 9.2 L (9.4-12.4) fL Immature Gran % 0.6 (0-4) % Seg Neutrophils % 81.7 % Lymphocytes % 10.4 % Monocytes % 6.3 % Eosinophils % 0.6 % Basophils % 0.4 % Neutrophils # 4.4 (1.6-8.9) K/mcL Lymphocytes # 0.6 (0.6-4.6) K/mcL Monocytes # 0.3 (0.0-1.3) K/mcL Eosinophils # 0.0 (0.0-0.6) K/mcL Basophils # 0.0 (0.0-0.2) K/mcL PT 11.4 (9.4-12.1) Seconds INR 1.0 APTT 60.1 H (26.0-36.0) Seconds Sodium 138 (136-145) mEq/L Potassium 4.0 (3.5-5.1) mEq/L Chloride 102 (98-107) mEq/L Carbon Dioxide 28 (23-29) mEq/L BUN 7 L (8-23) mg/dL Creatinine 0.54 L (0.60-1.20) mg/dL Est GFR ( Amer) > 60 (> 60) Est GFR (Non-Af Amer) > 60 (> 60) BUN/Creatinine Ratio 13 (6-26) Glucose 143 H (70-105) mg/dL Calculated Osmolality 286 (280-300) Lactic Acid (0.5-2.2) mmol/L Calcium 9.4 (8.6-10.3) mg/dL Total Bilirubin 0.4 (0.3-1.0) mg/dL Direct Bilirubin 0.1 (0.0-0.2) mg/dL Indirect Bilirubin 0.3 (0.0-1.2) mg/dL AST 13 (13-39) Units/L ALT 11 (7-52) Units/L Alkaline Phosphatase 54 (34-104) Units/L Troponin I 0.04 H* (< 0.04) ng/mL B-Natriuretic Peptide (Less than 100) pg/mL Serum Total Protein 6.9 (6.4-8.9) g/dL Albumin 3.9 (3.5-5.7) g/dL Globulin 3.0 (2.4-3.5) g/dL Albumin/Globulin Ratio 1.3 (1.1-2.2) 01/06/19 01/06/19 Range/Units 16:27 16:27 WBC (4.3-11.1) K/mcL RBC (3.82-4.97) M/mcL Hgb (11.5-15.4) g/dL Hct (35.3-44.9) % MCV (83.0-100.0) fL MCH (28.0-33.3) pg MCHC (31.6-35.5) g/dL RDW (11.5-14.5) % Plt Count (140-400) K/mcL MPV (9.4-12.4) fL Immature Gran % (0-4) % Seg Neutrophils % % Lymphocytes % % Monocytes % % Eosinophils % % Basophils % % Neutrophils # (1.6-8.9) K/mcL Lymphocytes # (0.6-4.6) K/mcL Monocytes # (0.0-1.3) K/mcL Eosinophils # (0.0-0.6) K/mcL Basophils # (0.0-0.2) K/mcL PT (9.4-12.1) Seconds INR APTT (26.0-36.0) Seconds Sodium (136-145) mEq/L Potassium (3.5-5.1) mEq/L Chloride (98-107) mEq/L Carbon Dioxide (23-29) mEq/L BUN (8-23) mg/dL Creatinine (0.60-1.20) mg/dL Est GFR ( Amer) (> 60) Est GFR (Non-Af Amer) (> 60) BUN/Creatinine Ratio (6-26) Glucose (70-105) mg/dL Calculated Osmolality (280-300) Lactic Acid 0.5 (0.5-2.2) mmol/L Calcium (8.6-10.3) mg/dL Total Bilirubin (0.3-1.0) mg/dL Direct Bilirubin (0.0-0.2) mg/dL Indirect Bilirubin (0.0-1.2) mg/dL AST (13-39) Units/L ALT (7-52) Units/L Alkaline Phosphatase (34-104) Units/L Troponin I (< 0.04) ng/mL B-Natriuretic Peptide 452 H (Less than 100) pg/mL Serum Total Protein (6.4-8.9) g/dL Albumin (3.5-5.7) g/dL Globulin (2.4-3.5) g/dL Albumin/Globulin Ratio (1.1-2.2) - Radiology Data Radiology results reviewed: Yes I reviewed the patient's radiology results. Chest X-Ray 01/06/19 16:07 IMPRESSION: 1. Soft tissue nodule overlies the lateral mid right lung, reflecting a true pulmonary nodule on recent CT chest. 2. Chronic right upper lobe atelectasis as seen on recent CT chest. 3. No significant interval change evident. 4. Calcific atherosclerotic disease aorta. D/ / Salazar Alvarenga / Salazar Alvarenga Interpreting Provider: Salazar Alvarenga Abdomen/Pelvis CT 01/06/19 17:02 IMPRESSION: 1. Cholelithiasis. There now appears to be some pericholecystic fluid suggesting acute cholecystitis 2. Pulmonary nodules again seen at the lung bases. 3. New right pleural effusion 4. Small pericardial effusion 5. No obstructive uropathy 6. Normal appearing appendix D/ / Chi Rodriguez MD / Chi Rodriguez MD Interpreting Provider: Chi Rodriguez MD Gallbladder Ultrasound 01/06/19 17:02 IMPRESSION: Gallstone and gallbladder sludge. No findings to suggest acute cholecystitis otherwise. D/ / Rishabh Corado MD / Rishabh Corado MD Interpreting Provider: Rishabh Corado MD - EKG Data EKG attestation: Yes I reviewed and interpreted this EKG. EKG results narrative: Heart rate 126 beats for minute. Sinus tachycardia. This does not appear to be a flutter A. fib. No ST elevation or ST depression noted.
[2019-01-06] MEDS ORDERED: Ondansetron 4 MG/2 ML VIAL IVP ONE (18:15)
[2019-01-06] MEDS ORDERED: *HR* FentaNYL (PF) 100 MCG/2 ML VIAL IVP ONE ×2 (18:15→19:03)
[2019-01-06] MEDS ORDERED: Aspirin 325 MG TABLET PO ONE (18:49)
--- NOTE | 2019-01-06 20:26 | Internal Med History&Physical ---
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 The patient states this started feeling short of breath earlier today around 11 AM. She reports wheezing as well as chills. Denies any fever. Patient reports going to bed on her home concentrator. When she awoke she realized that her concentrator was not on throughout the night. She did have one episode of paroxysmal nocturnal dyspnea last night. She takes Lasix as needed. Denies any lower extremity edema or weight gain. Patient denied any associated chest pain. Reports that her granddaughter visited her yesterday he does have an upper respiratory tract infection, however, patient denies any sinus congestion or runny nose. In addition, the patient reports to have right upper quadrant abdominal pain and right side abdominal pain associated with multiple episodes of nausea and nonbloody nonbilious emesis. Patient states this feels similar to previous gallbladder issues in the past. No reports of diarrhea. Patient was being evaluated for possible cholecystectomy on previous admission but developed respiratory distress requiring intubation. Her gallbladder issues were never readdressed. Patient denies history of DVT or PE, hemoptysis. The patient is in mild respiratory distress evaluation with audible wheezing on auscultation. The patient does have 2 L nasal cannula chores [id number]. Patient denies any other complaints at this time. Past Med Surg Social Fam HX - Past Medical History Medical history: cancer, CHF, COPD, coronary artery disease, diabetes, h yperlipidemia, hypertension, migraine, peripheral artery disease Additional medical history: ulnar neuropathy, LUE, peripheral vascular disease, lumbar facet arthropathy, disorder of scrum, multiple cerebral infarctions, Psychiatric history: anxiety, bipolar, depression, panic disorder - Past Surgical History Surgical History: angioplasty/stent, carotid endarterectomy, other, vascular surgery, LE stent (s), LE vascular intervention Additional surgical history: BILAT CEA, LLE STENTS PLACED, RLE STENTS PLACED. - Social History Smoking Status: Current every day smoker Smokeless Tobacco Status: No Alcohol use: rarely Drug use: none - Family History Father Family Member Ethnicity: Non- Living Status: Hx Family Cardiac Disorders: Yes (CHF) Mother Family Member Ethnicity: Non- Living Status: Hx Family Cardiac Disorders: Yes (CHF) Hx Family Neurologic Disorders: Yes Internal Medicine - H&P: Meds Budesonide/Formoterol 160/4.5 [Symbicort 160/4.5] 2 puff IH BIDR 12/14/18 [History] Cilostazol [Pletal] 100 mg PO BID 12/14/18 [History] Cyclobenzaprine [Flexeril] 10 mg PO DAILY 12/14/18 [History] HYDROcodone/Acet 7.5/325 mg [Alger 7.5-325 mg] 1 tab PO Q6H PRN 12/14/18 [History] Zolpidem [Ambien] 10 mg PO HS 12/14/18 [History] clonazePAM [Clonazepam] 1 mg PO QID PRN 12/14/18 [History] metFORMIN [Glucophage] 500 mg PO HS 12/14/18 [History] risperiDONE [Risperidone] 1 mg PO HS 12/14/18 [History] Citalopram [CeleXA] 40 mg PO DAILY 12/15/18 [History] Clopidogrel [Plavix] 75 mg PO DAILY 12/15/18 [History] Doxepin [Sinequan] 75 mg PO HS 12/15/18 [History] Simvastatin [Zocor] 40 mg PO HS 12/15/18 [History] lamoTRIgine [Lamictal Xr] 100 mg PO DAILY 12/15/18 [History] Aspirin [Lo-Dose Aspirin EC] 81 mg PO DAILY 01/05/19 [History] Dexamethasone [Decadron] 4 mg PO BID PRN #45 tab 01/05/19 [Rx] Lidocaine/Prilocaine [Emla] 1 appl TP AD PRN #30 gm 01/05/19 [Rx] Magic Mouthwash [Magic Mouthwash BLM] 10 ml PO QID PRN #240 ml 01/05/19 [Rx] Ondansetron HCl 8 mg PO Q8H PRN #45 tablet 01/05/19 [Rx] Prochlorperazine Maleate [Compazine] 10 mg PO Q6HR PRN #60 tablet 01/05/19 [Rx] Allergy/AdvReac Type Severity Reaction Status Date / Time Penicillins Allergy Hives Verified 01/05/19 13:25 All Systems PM: A 10-system review of systems was performed and is negative for pertinent findings except as documented above in the HPI. - Constitutional Constitutional: no chills, no fever(s), no night sweats - EENT Eyes: no change in vision, no discharge, no pain, no photophobia Ears: no ear discharge, no ear pain, no tinnitus Nose, mouth and throat: no dysphagia, no nasal discharge, no neck pain, no sore throat - Cardiovascular Cardiovascular ROS IM: no chest pain, no diaphoresis, no dyspnea, no lightheadedness, no palpitations, no syncope - Respiratory Respiratory: no cough, no dyspnea, no wheezing, no excessive phlegm production - Gastrointestinal Gastrointestinal: no abdominal pain, no diarrhea, no hematemesis, no hematochezia, no melena, no nausea, no vomiting - Genitourinary Genitourinary: no change in urinary stream, no dysuria, no flank pain, no hematuria - Musculoskeletal Musculoskeletal ROS IM: no numbness, no tingling - Integumentary Integumentary IM: no rash, no unusual bruising - Neurological Neurological ROS: no confusion, no convulsions, no focal weakness, no numbness, no tingling, no tremor(s) - Hematologic/Lymphatic Hematologic/Lymphatic: no easy bruising - Constitutional Vitals: Temp Pulse Resp BP Pulse Ox 98.3 F 123 20 114/91 95 01/06/19 15:59 01/06/19 19:39 01/06/19 19:39 01/06/19 19:39 01/06/19 19:39 Exam: General: Alert and oriented 3 lying in bed in no acute distress Skin:Normal color, no rash, no lesions. HEENT:EOM, pupils equal, round and reactive. Cardiovascular:Normal S1 & S2, tachycardia; no rubs, murmurs or gallops. No JVD. Pulse regular. Lungs: Breath sounds diminished throughout though clear. Abdomen:Soft, with tenderness to palpation predominantly in the right upper quadrant. Extremities:No deformity, no edema or tenderness, no joint swelling or clubbing. Neurological:Normal cognition and motor skills. Pulses:Carotid and radial pulses normal +2. Rest of the physical exam is non contributory Internal Med - H&P Results - Labs CBC & Chem 7: 01/07/19 04:24 01/07/19 04:24 Labs: Short CBC 01/06/19 Range/Units 16:27 WBC 5.4 (4.3-11.1) K/mcL Hgb 13.5 (11.5-15.4) g/dL Hct 39.9 (35.3-44.9) % Plt Count 276 (140-400) K/mcL Neutrophils # 4.4 (1.6-8.9) K/mcL BMP 01/06/19 16:27 Sodium 138 Potassium 4.0 Chloride 102 Carbon Dioxide 28 BUN 7 L Creatinine 0.54 L Glucose 143 H Calcium 9.4 Cardiac Enzymes 01/06/19 Range/Units 16:27 Troponin I 0.04 H* (< 0.04) ng/mL Liver Function 01/06/19 Range/Units 16:27 Total Bilirubin 0.4 (0.3-1.0) mg/dL Direct Bilirubin 0.1 (0.0-0.2) mg/dL AST 13 (13-39) Units/L ALT 11 (7-52) Units/L Alkaline Phosphatase 54 (34-104) Units/L Albumin 3.9 (3.5-5.7) g/dL - Impressions ITS Impressions Chest X-Ray 01/06/19 16:07 IMPRESSION: 1. Soft tissue nodule overlies the lateral mid right lung, reflecting a true pulmonary nodule on recent CT chest. 2. Chronic right upper lobe atelectasis as seen on recent CT chest. 3. No significant interval change evident. 4. Calcific atherosclerotic disease aorta. D/ / Salazar Alvarenga / Salazar Alvarenga Interpreting Provider: Salazar Alvarenga Abdomen/Pelvis CT 01/06/19 17:02 IMPRESSION: 1. Cholelithiasis. There now appears to be some pericholecystic fluid suggesting acute cholecystitis 2. Pulmonary nodules again seen at the lung bases. 3. New right pleural effusion 4. Small pericardial effusion 5. No obstructive uropathy 6. Normal appearing appendix D/ / Chi Rodriguez MD / Chi Rodriguez MD Interpreting Provider: Chi Rodriguez MD Gallbladder Ultrasound 01/06/19 17:02 IMPRESSION: Gallstone and gallbladder sludge. No findings to suggest acute cholecystitis otherwise. D/ / Rishabh Corado MD / Rishabh Corado MD Interpreting Provider: Rishabh Corado MD - Assessment and plan (1) Acute exacerbation of chronic obstructive airways disease Current Visit: Yes Status: Acute Assessment and plan: Patient presents with acute dyspnea associated with wheezing. Patient denies any worsening cough or fever. Reports that her home concentrator was not on as she thought during the previous evening. Does report exposure to recent sick contact. Lung sounds on physical examination diminished although clear. Does not otherwise have any evidence of an acute infectious lung process. Patient received breathing treatment in the ED as well as steroids. Chest x-ray shows no evidence of any acute changes. Currently stable from a respiratory standpoint on 2 L saturating at 91%. -Continue duo nebs/steroids -Start patient on levofloxacin -BiPAP as needed (2) Pericardial effusion Current Visit: Yes Status: Acute Assessment and plan: Small pericardial effusion noted on CT of the abdomen. Last echocardiogram was performed on 12/15/18 which showed an EF of 60% with normal LV size and systolic function. Patient currently hemodynamically stable though tachycardic -Consider repeat echocardiogram and cardiology consult (3) Biliary colic Current Visit: Yes Status: Acute Assessment and plan: Patient reports her right upper quadrant abdominal pain similar to previous episodes. Patient reports that she was going to be worked up for possible cholecystectomy, however, this was deferred due to concomitant respiratory failure at the time. Right upper quadrant ultrasound shows gallstones and gallbladder sludge without any other findings to suggest acute cholecystitis. Patient's pain seems to have subsided though she still remains nauseous. -We will keep patient NPO after midnight -Antiemetics as needed -Consider surgery consult (4) CHF (congestive heart failure) Current Visit: No Status: Acute Assessment and plan: History of heart failure with preserved ejection fraction. Recent echo shows an EF of 60% with normal left ventricular systolic function. No evidence of pulmonary hypertension. Patient does not appear to be volume overloaded at this time. She does have a right-sided pleural effusion but this may be in the setting of her lung cancer. -Monitor for signs of exacerbation. Qualifiers: Heart failure type: diastolic Qualified Code(s): I50.30 - Unspecified krystle stolic (congestive) heart failure (5) Diabetes mellitus Current Visit: No Status: Acute Assessment and plan: Accu-Cheks. Sliding scale insulin. Qualifiers: Diabetes mellitus type: type 2 Diabetes mellitus halfway insulin use: without halfway use Diabetes mellitus complication status: with unspecified complications Qualified Code(s): E11.8 - Type 2 diabetes mellitus with unspecified complications (6) Elevated troponin Current Visit: Yes Status: Acute Assessment and plan: Elevated troponin of 0.04. Patient currently denies any chest pain. Review of her EKG shows subtle ST depressions in V5 and more prominent T waves in lead 2, and V4. At this time I suspect demand ischemia given that the patient may have been hypoxemic throughout the evening when she realized her home concentrator was not working throughout the night. Patient received loading dose of aspirin. -We will trend troponin. If it continues to trend up, we will consider anticoagulation and further workup. (7) DVT prophylaxis Current Visit: No Status: Acute Assessment and plan: Subcutaneous heparin - Time Spent With Patient Total time spent is greater than 50% in coordination of care (as documented) at patient's floor/unit and/or counseling patient:
[2019-01-06] MEDS ORDERED: Ondansetron 4 MG/2 ML VIAL IVP PRN (20:49)
[2019-01-06] MEDS ORDERED: *HR* Dextrose 50 % in Water (Syg) 50 ML SYRINGE IVP PRN (21:14)
[2019-01-06] MEDS ORDERED: Dextrose Gel 15 GM/37.5 ML TUBE PO PRN ×2 (21:14)
[2019-01-06] MEDS ORDERED: D5% in Water 1,000 ML IVC PRN (21:14)
[2019-01-06] MEDS: Ipratropium/Albuterol Neb 3 ML IH SCH (23:20)
[2019-01-06] MEDS: *HR* Promethazine 25 MG/ML VIAL IVP PRN (23:37)
[2019-01-06] MEDS: *HR* Heparin 5,000 UNIT/ML VIAL SQ SCH (23:37)
[2019-01-06] MEDS: Levofloxacin 500 MG/100 ML 500 MG/100 ML BAG IVPB SCH (23:38)
[2019-01-07] MEDS: MethylPREDNISolone 40 MG/ML VIAL IVP SCH ×3 (00:25→13:53)
[2019-01-07] MEDS ORDERED: *HR* Metoprolol 5 MG/5 ML VIAL IVP PRN (00:26)
[2019-01-07] MEDS: Insulin LISPRO 300 UNITS/3 ML VIAL SQ SCH ×5 (00:26→20:15)
[2019-01-07] MEDS ORDERED: *HR* Promethazine 25 MG/ML VIAL IVP ONE (02:20)
[2019-01-07] MEDS ORDERED: Naloxone 0.4 MG/ML INJ IVP PRN (02:32)
[2019-01-07] MEDS: Ketorolac 30 MG/ML VIAL IVP PRN (03:09)
[2019-01-07] MEDS ORDERED: Ipratropium/Albuterol Neb 3 ML IH STA (03:09)
[2019-01-07] MEDS ORDERED: Furosemide 20 MG/2 ML VIAL IVP ONE (03:39)
[2019-01-07] MEDS: Ipratropium/Albuterol Neb 3 ML IH SCH ×4 (04:50→22:17)
[2019-01-07 04:58] LABS: Basophils % 0.2 %; Hematocrit 38.5 % (35.3-44.9); Hemoglobin 13.3 g/dL (11.5-15.4); Immature Granulocytes % 0.2 % (0-4); Lymphocytes # 0.3 K/mcL (0.6-4.6); Lymphocytes % 7.1 %; Mean Corpuscular HGB Conc 34.5 g/dL (31.6-35.5); Mean Corpuscular Hemoglobin 31.4 pg (28.0-33.3); Mean Platelet Volume 9.4 fL (9.4-12.4); Monocytes # 0.1 K/mcL (0.0-1.3); Monocytes % 1.1 %; Platelet Count 304 K/mcL (140-400); Red Blood Count 4.23 M/mcL (3.82-4.97); Red Cell Distribution Width 11.9 % (11.5-14.5); Segmented Neutrophils % 91.4 %
[2019-01-07 05:17] LABS: Alanine Aminotransferase 10 Units/L (7-52); Albumin/Globulin Ratio 1.3 (1.1-2.2); Alkaline Phosphatase 55 Units/L (34-104); Aspartate Amino Transferase 12 Units/L (13-39); BUN/Creatinine Ratio 17 (6-26); Bilirubin,Total 0.6 mg/dL (0.3-1.0); Blood Urea Nitrogen 9 mg/dL (8-23); Calcium 9.3 mg/dL (8.6-10.3); Carbon Dioxide 28 mEq/L (23-29); Chloride 94 mEq/L (98-107); Globulin 3.1 g/dL (2.4-3.5); Glucose 171 mg/dL (70-105); Osmolality,Calculated 273 (280-300); Potassium 3.8 mEq/L (3.5-5.1); Sodium 130 mEq/L (136-145); Total Protein 7.1 g/dL (6.4-8.9); eGFR For Non-African Americans > 60 (> 60)
[2019-01-07] MEDS: *HR* Heparin 5,000 UNIT/ML VIAL SQ SCH ×3 (05:48→20:27)
[2019-01-07] MEDS: OXYCODONE Oral CONC 10 MG/0.5 ML ORAL.SYG SL PRN (06:41)
[2019-01-07] MEDS ORDERED: *HR* Metoprolol 5 MG/5 ML VIAL IVP ONE (06:55)
[2019-01-07] MEDS ORDERED: LAMOTRIGINE 100 MG PO SCH (09:00)
--- NOTE | 2019-01-07 09:43 | Electrocardiograph Report ---
[place] [id number] Test Date: 2019-01-07 Pat Name: Faith Mace Department: 112 Room: 2A Gender: F Cart Attendant: DARLINE : 1955 Requested By: Ayla Gomez Order Number: [id number] Reading MD: Ethan iKran Measurements Intervals [place] Rate: 115 P: 66 MO: 158 QRS: 57 QRSD: 89 T: 89 QT: 272 QTc: 340 Interpretive Statements SINUS TACHYCARDIA POSSIBLE LEFT ATRIAL ENLARGEMENT POSSIBLE ANTERIOR MYOCARDIAL INFARCTION, OF INDETERMINATE AGE Electronically Signed On 01-07-2019 9:42:11 EST by Ethan Kiran
--- NOTE | 2019-01-07 09:43 | Electrocardiograph Report ---
[place] [id number] Test Date: 2019-01-06 Pat Name: Faith Mace Department: 104 Room: [facility] Gender: F Director [employer]: TAL : 1955 Requested By: Daniel Jansen Order Number: [id number] Reading MD: Ethan Kiran Measurements Intervals [place] Rate: 126 P: [place]: 0 QRS: 73 QRSD: 87 T: 78 QT: 327 QTc: 401 Interpretive Statements Sinus tachycardia Probable LAE Electronically Signed On 01-07-2019 9:41:38 EST by Ethan Kiran
[2019-01-07] MEDS: *HR* Promethazine 25 MG/ML VIAL IVP PRN (10:05)
[2019-01-07] MEDS: Aspirin Enteric Coated 81 MG Tablet PO SCH (10:05)
[2019-01-07] MEDS: Levofloxacin 500 MG/100 ML 500 MG/100 ML BAG IVPB SCH (10:06)
--- NOTE | 2019-01-07 10:12 | Internal Med Progress Note ---
Hospitalist Progress Note - Encounter Date of Encounter: 01/07/19 Time of Encounter: 11:00 - Subjective Interval History: Patient with persistent hypotension throughout today in spite of fluid resuscitation. Patient remains asymptomatic - Exam Vitals: Temp Pulse Resp BP Pulse Ox 98.1 F 124 18 138/93 93 01/07/19 07:42 01/07/19 07:42 01/07/19 07:42 01/07/19 07:42 01/07/19 07:42 Exam: Gen.: Nonacute distress, alert and oriented 3 ENT: Mucosal membranes moist Respiratory: Lungs are clear to auscultation bilaterally without any wheezing rhonchi or rales Cardiovascular: Normal S1 and S2 regular rate rhythm no murmurs rubs or gallops Abdomen: Soft, nontender and nondistended with positive bowel sounds Extremities: No lower extremity edema Skin: Normal color - Assessment and Plan (1) Hypotension Current Visit: No Status: Acute Assessment and Plan: Patient remains hypotensive in spite of 3 L of fluid bolus Continuous Mining [employer]er has been consulted with recommendations to give glucagon 2 mg IV push to cataract beta ottoniel which was given earlier the day Will transfer patient to ICU if no improvement in blood pressures. (2) Biliary colic Current Visit: Yes Status: Acute Assessment and Plan: Patient reports her right upper quadrant abdominal pain similar to previous episodes. Patient reports that she was going to be worked up for possible cholecystectomy, however, this was deferred due to concomitant respiratory failure at the time. Right upper quadrant ultrasound shows gallstones and gallbladder sludge without any other findings to suggest acute cholecystitis. Patient's pain seems to have subsided though she still remains nauseous. Will consult general surgery and appreciate recommendations (3) Acute exacerbation of chronic obstructive airways disease Current Visit: Yes Status: Acute Assessment and Plan: Patient presents with acute dyspnea associated with wheezing. Reports that her home concentrator was not on as she thought during the previous evening. Chest x-ray shows no evidence of any acute changes. Currently stable from a respiratory standpoint on 2 L saturating at 91%. Will continue Levaquin and IV Solu-Medrol in addition to scheduled DuoNeb's started on admission (4) Acute and chronic respiratory failure with hypoxia Current Visit: No Status: Acute Assessment and Plan: Resolved as patient now on baseline O2 requirements (5) Pericardial effusion Current Visit: Yes Status: Acute Assessment and Plan: Small pericardial effusion noted on CT of the abdomen. Last echocardiogram was performed on 12/15/18 which showed an EF of 60% with normal LV size and systolic function. Limited echocardiogram ordered and pending (6) Elevated troponin Current Visit: Yes Status: Acute Assessment and Plan: Troponin was elevated on admission but has trended downward and now within normal limits Suspect secondary to demand ischemia due to now resolved acute on chronic hypoxic respiratory failure due to patient not wearing nasal cannula at home. (7) CHF (congestive heart failure) Current Visit: No Status: Acute Assessment and Plan: History of heart failure with preserved ejection fraction. Recent echo shows an EF of 60% with normal left ventricular systolic function. No evidence of pulmonary hypertension. Patient is euvolemic (8) Diabetes mellitus Current Visit: No Status: Acute Assessment and Plan: Coverage with sliding scale insulin DVT Prophylaxis: Heparin subcutaneous - Time Spent with Patient Total time spent is greater than 50% in coordination of care (as documented) at patient's floor/unit and/or counseling patient: Internal Medicine: Result - Labs CBC & Chem 7: 01/07/19 04:24 01/07/19 04:24 Labs: Short CBC 01/06/19 01/07/19 Range/Units 16:27 04:24 WBC 5.4 4.4 (4.3-11.1) K/mcL Hgb 13.5 13.3 (11.5-15.4) g/dL Hct 39.9 38.5 (35.3-44.9) % Plt Count 276 304 (140-400) K/mcL Neutrophils # 4.4 4.0 (1.6-8.9) K/mcL BMP 01/06/19 01/07/19 16:27 04:24 Sodium 138 130 L Potassium 4.0 3.8 Chloride 102 94 L Carbon Dioxide 28 28 BUN 7 L 9 Creatinine 0.54 L 0.52 L Glucose 143 H 171 H Calcium 9.4 9.3 Cardiac Enzymes 01/06/19 01/06/19 01/07/19 Range/Units 16:27 22:39 04:24 Troponin I 0.04 H* 0.03 0.03 (< 0.04) ng/mL Liver Function 01/06/19 01/07/19 Range/Units 16:27 04:24 Total Bilirubin 0.4 0.6 (0.3-1.0) mg/dL Direct Bilirubin 0.1 (0.0-0.2) mg/dL AST 13 12 L (13-39) Units/L ALT 11 10 (7-52) Units/L Alkaline Phosphatase 54 55 (34-104) Units/L Albumin 3.9 4.0 (3.5-5.7) g/dL - ABG Interpretation ABG results: PT/INR, D-dimer PT 11.4 Seconds (9.4-12.1) 01/06/19 16:27 - Impressions Impressions Chest X-Ray 01/06/19 16:07 IMPRESSION: 1. Soft tissue nodule overlies the lateral mid right lung, reflecting a true pulmonary nodule on recent CT chest. 2. Chronic right upper lobe atelectasis as seen on recent CT chest. 3. No significant interval change evident. 4. Calcific atherosclerotic disease aorta. D/ / Salazar Alvarenga / Salazar Alvarenga Interpreting Provider: Salazar Alvarenga Abdomen/Pelvis CT 01/06/19 17:02 IMPRESSION: 1. Cholelithiasis. There now appears to be some pericholecystic fluid suggesting acute cholecystitis 2. Pulmonary nodules again seen at the lung bases. 3. New right pleural effusion 4. Small pericardial effusion 5. No obstructive uropathy 6. Normal appearing appendix D/ / Chi Rodriguez MD / Chi Rodriguez MD Interpreting Provider: Chi Rodriguez MD Gallbladder Ultrasound 01/06/19 17:02 IMPRESSION: Gallstone and gallbladder sludge. No findings to suggest acute cholecystitis otherwise. D/ / Rishabh Corado MD / Rishabh Corado MD Interpreting Provider: Rishabh Corado MD Chest X-Ray 01/07/19 03:11 IMPRESSION: Stable chest x-ray with evidence of a right hilar mass causing right upper lobe collapse. No change from the recent studies. D/ / Eric Jean Baptiste MD / Eric Jean Baptiste MD Interpreting Provider: Eric Jean Baptiste MD Consult Discharge Plan - Plan Referrals: Maisha Ruth, COMMUNITY SUPPORT ASSOCIATE [Primary Care Provider] - (1) Hypotension Qualifiers: Hypotension type: unspecified hypotension type Qualified Code(s): I95.9 - Hypotension, unspecified (7) CHF (congestive heart failure) Qualifiers: Heart failure type: diastolic Qualified Code(s): I50.30 - Unspecified diastolic (congestive) heart failure (8) Diabetes mellitus Qualifiers: Diabetes mellitus type: type 2 Diabetes mellitus residential insulin use: without superintendent marine oil terminal use Diabetes mellitus complication status: with unspecified complications Qualified Code(s): E11.8 - Type 2 diabetes mellitus with unspecified complications
[2019-01-07] MEDS ORDERED: 0.9 % Sodium Chloride 500 ML IVC ONE (12:34)
[2019-01-07] MEDS ORDERED: 0.9 % Sodium Chloride 500 ML ONE (12:36)
[2019-01-07] MEDS ORDERED: 0.9 % Sodium Chloride 1,000 ML ONE ×3 (12:49→14:02)
--- NOTE | 2019-01-07 15:28 | Pulmonology Consult Note ---
<Cele Pugh N - Last Filed: 01/07/19 15:25> Date of Encounter: 01/07/19 Time of Encounter: 15:25 Assessment and Plan (1) Hypotension Current Visit: No Status: Acute Suspect secondary to beta ottoniel administration. Review of signs demonstrates a blood pressure within normal limits yesterday and this morning. Patient remains completely asymptomatic, and has had minimal improvement with fluid boluses. Patient has been tachycardic since presentation to the ED, with heart rate ranging from 110s to 130s. She denies any palpitations or chest discomfort. Patient does require 2 L of supplemental oxygen at home; she is currently on 3 L to maintain oxygen saturation at 95% - Glucagon 3 mg IVP ordered to counteract beta ottoniel action - Repeat BP ~30-60 minutes after glucagon administration. - Due to concurrent tachycardia and increased oxygen requirement, along with currently malignancy, will obtain CTA with contrast to rule out acute PE. - Recommend transfer to ICU for close monitoring if BP does not improve with glucagon administration, if patient becomes increasingly hypotensive, or if she begins to be symptomatic. Qualifiers: Hypotension type: unspecified hypotension type Qualified Code(s): I95.9 - Hypotension, unspecified (2) Tachycardia Current Visit: No Status: Acute Unclear etiology. Plan as above. 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 Patient reports that she was supposed to have a chemotherapy port placed tomorrow, with plan to begin treatment next week. - Recommend hold on port placement pending resolution of hypertension and tachycardia. - Consider hematology/oncology inpatient consult for recommendations. - Further management per primary team Qualifiers: Laterality: unspecified laterality Qualified Code(s): C34.90 - Malignant neoplasm of unspecified part of unspecified bronchus or lung (4) Pericardial effusion Current Visit: Yes Status: Acute CT of the abdomen and pelvis performed yesterday was significant for small pericardial effusion. Echocardiogram performed on 12/15/2018 demonstrated LVEF of 60%. Patient was noted to have normal left ventricle chamber size, wall thickness, and systolic function, as well as mild left ventricular diastolic dysfunction, normal right ventricular structure and function, no significant valvular dysfunction, and no evidence of pulmonary hypertension. Primary team has ordered repeat limited echocardiogram, which is currently pending completion. - We will follow up on results of repeat echocardiogram once study is complete. - Further management per primary team. (5) Acute exacerbation of chronic obstructive airways disease Current Visit: Yes Status: Acute Patient is currently being treated for acute exacerbation of COPD. On exam this afternoon, she does not have any wheezes present; however, breath sounds are notably decreased bilaterally. - Continue empiric antibiotic therapy with Levaquin. - Continue IV Solu-Medrol. - Avoid the use of excessive bronchodilator therapy, as this may exacerbate her tachycardia. - Continue use of Symbicort 2 puffs twice a day. (6) Biliary colic Current Visit: Yes Status: Acute - Management per primary team and surgery recommendations. History of Present Illness Consult date: 01/07/19 Reason for consult: other (hypotension, tachycardia, and hypoxia) Chief complaint: Abdominal pain and SOB History of present illness: Ms. 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 She presented to the ED last night due to worsening abdominal pain, which was associated with increased shortness of breath. Patient has been evaluated for biliary colic in the past, and was reportedly planning to undergo cholecystectomy during a prior hospitalization; however, she developed respiratory distress requiring intubation and was unable to proceed with operative management. Patient does report some increased wheezing, but denies any sputum production, chest congestion, or productive cough. CT of the abdomen and pelvis performed on 01/06/2019 was significant for cholelithiasis with presence of some pericholecystic fluid suggesting acute cholecystitis, pulmonary nodules at the lung bases, new right pleural effusion, and small pericardial effusion. Gallbladder ultrasound was significant for presence of gallstones and gallbladder sludge, without any other findings to suggest acute cholecystitis. Patient was admitted to the hospital for management of biliary colic and acute exacerbation of COPD. Pulmonology service was consulted this afternoon due to asymptomatic hypertension and tachycardia. Review of vital sign shows morning blood pressure is near 130s systolic; however, patient was noted to have a significantly decreased systolic pressure of 66 just after noon today. Patient has been persistently tachycardic, with heart rate between 110-136 bpm. Review of an ache R shows that patient received 2.5 mg of metoprolol at 01:52, with a second dose administered at 07:56. Patient has remained alert and oriented, and denies any complaints or concerns related to her blood pressure or heart rate. She denies any lower extremity swelling, palpitations, increased work of breathing, or history of DVT/PE. Patient has received 31 L fluid boluses, with mild improvement in blood pressure, from 66/55 at 12:05 to 75/56 at 15:07. Past Med Surg Social Fam HX - Past Medical History Medical history: cancer, CHF, COPD, coronary artery disease, diabetes, hyperlipidemia, hypertension, migraine, peripheral artery disease Additional medical history: ulnar neuropathy, LUE, peripheral vascular disease, lumbar facet arthropathy, disorder of scrum, multiple cerebral infarctions, Psychiatric history: anxiety, bipolar, depression, panic disorder - Past Surgical History Surgical History: angioplasty/stent, carotid endarterectomy, other, vascular surgery, LE stent (s), LE vascular intervention Additional surgical history: BILAT CEA, LLE STENTS PLACED, RLE STENTS PLACED. - Social History Smoking Status: Current every day smoker Smokeless Tobacco Status: No Alcohol use: rarely Drug use: none - Family History Father Family Member Ethnicity: Non- Living Status: Hx Family Cardiac Disorders: Yes (CHF) Mother Family Member Ethnicity: Non- Living Status: Hx Family Cardiac Disorders: Yes (CHF) Hx Family Neurologic Disorders: Yes Medications and Allergies Budesonide/Formoterol 160/4.5 [Symbicort 160/4.5] 2 puff IH BIDR 12/14/18 [History] Cilostazol [Pletal] 100 mg PO BID 12/14/18 [History] Cyclobenzaprine [Flexeril] 10 mg PO DAILY PRN 12/14/18 [History] HYDROcodone/Acet 7.5/325 mg [Hurricane 7.5-325 mg] 1 tab PO Q6H PRN 12/14/18 [History] Zolpidem [Ambien] 10 mg PO HS 12/14/18 [History] clonazePAM [Clonazepam] 1 mg PO QID PRN 12/14/18 [History] metFORMIN [Glucophage] 500 mg PO HS 12/14/18 [History] risperiDONE [Risperidone] 1 mg PO HS 12/14/18 [History] Citalopram [CeleXA] 40 mg PO DAILY 12/15/18 [History] Clopidogrel [Plavix] 75 mg PO DAILY 12/15/18 [History] Doxepin [Sinequan] 75 mg PO HS 12/15/18 [History] Simvastatin [Zocor] 40 mg PO HS 12/15/18 [History] lamoTRIgine [Lamictal Xr] 100 mg PO DAILY 12/15/18 [History] Aspirin [Lo-Dose Aspirin EC] 81 mg PO DAILY 01/05/19 [History] Lipase/Protease/Amylase [Creon Dr 3,000 Units Capsule] 8 each PO TIDWM 01/07/19 [History] Allergy/AdvReac Type Severity Reaction Status Date / Time Penicillins Allergy Hives Verified 01/05/19 13:25 All Systems: The remainder of the systems were reviewed and are negative - Constitutional Constitutional: fatigue, no chills, no fever(s), no weakness - EENT Nose, mouth and throat: no dizziness - Cardiovascular Cardiovascular: no chest pain, no edema, no irregular heart rhythm, no lig htheadedness, no palpitations - Respiratory Respiratory: dyspnea, dyspnea on exertion, no cough, no chest congestion, no excessive phlegm production, no change in phlegm color - Gastrointestinal Gastrointestinal: abdominal pain, nausea, vomiting - Musculoskeletal Musculoskeletal: no muscle weakness, no numbness - Neurological Neurological: no disequilibrium, no dizziness, no weakness Physical Examination Vital Signs: Vital Signs, Last 4 Hours Temp Pulse Resp BP Pulse Ox 01/07/19 15:07 114 16 75/56 94 01/07/19 14:16 112 14 70/52 90 01/07/19 12:30 110 16 80/55 93 01/07/19 12:05 98.4 F 124 12 66/55 94 01/07/19 11:26 18 91 General appearance: no acute distress Eyes: nonicteric ENT: oropharynx dry Effort: normal Auscultation: bilateral: diminished breath sounds Cardiovascular: regular rate and rhythm (sinus tachycardia) Gastrointestinal: normoactive bowel sounds, soft, non-distended Integumentary: normal Extremities: no cyanosis, no edema, no clubbing Musculoskeletal: no deformities normal mental status, non-focal exam mood appropriate, affect normal Results - Laboratory Findings CBC and BMP: 01/07/19 04:24 01/07/19 04:24 PT/INR, D-dimer PT 11.4 Seconds (9.4-12.1) 01/06/19 16:27 Abnormal lab findings: Abnormal lab results Lymphocytes # 0.3 K/mcL (0.6-4.6) L 01/07/19 04:24 APTT 60.1 Seconds (26.0-36.0) H 01/06/19 16:27 Sodium 130 mEq/L (136-145) L 01/07/19 04:24 Chloride 94 mEq/L (98-107) L 01/07/19 04:24 Creatinine 0.52 mg/dL (0.60-1.20) L 01/07/19 04:24 Glucose 171 mg/dL (70-105) H 01/07/19 04:24 POC Glucose 159 mg/dL (70-99) H 01/07/19 05:37 Calculated Osmolality 273 (280-300) L 01/07/19 04:24 AST 12 Units/L (13-39) L 01/07/19 04:24 B-Natriuretic Peptide 452 pg/mL (Less than 100) H 01/06/19 16:27 - Clinical Findings Intake & Output: Intake & Output 01/06/19 01/07/19 01/07/19 23:59 07:59 15:59 Intake Total 200 / 200 Output Total 550 / 550 275 / 275 Balance -550 / -550 -75 / -75 Weight 84.5 kg Consult Discharge Plan - Plan Referrals: Maisha Ruth, BILLING ADJUDICATOR [Primary Care Provider] - <Vj Simons - Last Filed: 01/07/19 17:15> Date of Encounter: 01/07/19 All Systems: The remainder of the systems were reviewed and are negative Physical Examination Vital Signs: Vital Signs, Last 4 Hours Pulse Resp BP Pulse Ox 01/07/19 15:53 114 91/62 01/07/19 15:07 114 16 75/56 94 01/07/19 14:16 112 14 70/52 90 Results - Laboratory Findings CBC and BMP: 01/07/19 04:24 01/07/19 04:24 PT/INR, D-dimer PT 11.4 Seconds (9.4-12.1) 01/06/19 16:27 Abnormal lab findings: Abnormal lab results Lymphocytes # 0.3 K/mcL (0.6-4.6) L 01/07/19 04:24 APTT 60.1 Seconds (26.0-36.0) H 01/06/19 16:27 Sodium 130 mEq/L (136-145) L 01/07/19 04:24 Chloride 94 mEq/L (98-107) L 01/07/19 04:24 Creatinine 0.52 mg/dL (0.60-1.20) L 01/07/19 04:24 Glucose 171 mg/dL (70-105) H 01/07/19 04:24 POC Glucose 173 mg/dL (70-99) H 01/07/19 11:59 Calculated Osmolality 273 (280-300) L 01/07/19 04:24 AST 12 Units/L (13-39) L 01/07/19 04:24 B-Natriuretic Peptide 452 pg/mL (Less than 100) H 01/06/19 16:27 - Clinical Findings Intake & Output: Intake & Output 01/07/19 01/07/19 01/07/19 07:59 15:59 23:59 Intake Total 200 / 200 Output Total 550 / 550 275 / 275 Balance -550 / -550 -75 / -75 - Attending Attestation I examined this patient and my medical decision-making was reviewed with the Resident Physician. I agree with the documented findings, disposition and mahi tment plan as described except to the extent set forth below. Patient seen and examined. Labs, radiology, chart personally reviewed. 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 There are multiple reasons for shortness of breath and treating for COPD exacerbation is reasonable with bronchodilators and systemic steroid. However with her history of lung cancer, she would be at risk of the VTE and CT angiogram would be reasonable to work her up for sinus tachycardia. Cardiovascular: Hypertension that is responding to fluid for now is most likely multifactorial, however I suspect this is from using metoprolol and to hold that for now and consider glucagon. If no improvement then patient will be transferred to ICU. It does not appear to be septic in nature. If hypertension continue then she will need vasopressors. Unfortunately overall prognosis is poor for this patient. We will continue follow-up and thank you for consultation.
[2019-01-07] MEDS: Isovue-370 500 ML BOTTLE IVP ONE ×2 (16:30→16:31)
[2019-01-07] MEDS: predniSONE 20 MG TABLET PO SCH (17:41)
[2019-01-07] MEDS: lamoTRIgine 25 MG TABLET PO SCH (20:27)
[2019-01-07] MEDS: risperiDONE 1 MG TABLET PO SCH (20:27)
[2019-01-07] MEDS: Norepinephrine 4 MG in D5% in Water 250 ML IVC SCH (23:20)
[2019-01-08] MEDS ORDERED: *HR* Heparin 5,000 UNIT/ML VIAL IVP ONE (00:03)
[2019-01-08] MEDS ORDERED: *HR* Heparin 5,000 UNIT/ML VIAL IVP PRN ×2 (00:03)
--- NOTE | 2019-01-08 00:49 | Event Note ---
Date of Encounter: 01/08/19 Time of Encounter: 22:00 We will called urgently to bedside as patient was becoming more hypotensive despite boluses. Patient was brought to the intensive care unit for placement of central venous catheter and to be started on pressors. Patient has worsening collapse of right upper lobe secondary to her stage IV squamous cell carcinoma. This could be contributing to her decline as well. CT angiogram of the chest was limited and could not definitively rule out pulmonary embolus. We will start heparin at this time for the possibility of a pulmonary embolus. We have ordered an echocardiogram to evaluate for right heart strain. There was evidence of worsening right upper lobe collapse secondary to the patient's cancer which could also be contributing to the patient's deteriorating clinical status. The patient remains on Levophed at this time to maintain a map greater than 65. She oxygen saturation is currently 95% on oxy-mask.
--- NOTE | 2019-01-08 01:02 | Procedure Note ---
Date of procedure: 01/08/19 Pre-op diagnosis: hypotension Post-op diagnosis: same Procedure: Procedure Note: Central Venous Catheter Insertion Indication: Hypotension Attending Physician: Dr. Ayla Gomez MD Rehabilitation Coordinator: Dr. Cha Kennedy DO Indication: This is a 63 year-old female with hypotension. Consent: verbal from patient Technique: The right neck was prepped with 2% chlorhexidine and draped with a full length sterile sheet in the usual fashion. The internal jugular vein was accessed under ultrasound guidance with an 18 gauge thin wall needle. A triple lumen was inserted via the seldinger technique. Blood was withdrawn from all lumens and flushed with normal saline. The catheter was sutured in place and a sterile dressing was applied over the site prior to removal of drapes. The patient tolerated the procedure well and there were no complications. Chest x ray: No complications EBL: 5cc Complication: None Anesthesia: local Surgeon: Cha Kennedy Was there an acute care assistant present: Yes Estate Manager: Heri Marks Estimated blood loss (cc): 5 Specimen: none Pathology: none sent Condition: stable Disposition: ICU
[2019-01-08 01:26] LABS: Mean Corpuscular HGB Conc 33.2 g/dL (31.6-35.5); Mean Corpuscular Hemoglobin 31.4 pg (28.0-33.3); Mean Corpuscular Volume 94.4 fL (83.0-100.0); Mean Platelet Volume 9.3 fL (9.4-12.4); Platelet Count 316 K/mcL (140-400); Red Cell Distribution Width 11.9 % (11.5-14.5)
[2019-01-08 01:27] LABS: Hemoglobin 11.3 g/dL (11.5-15.4)
[2019-01-08 01:41] LABS: Heparin anti-factor XA UFH 0.03 IU/mL (0.30-0.70); Prothrombin Time 11.4 Seconds (9.4-12.1)
[2019-01-08] MEDS: Heparin 25,000 UNIT/500 ML D5W 25,000 UNIT/500 ML BAG IVC SCH ×2 (01:53→23:28)
[2019-01-08 05:00] LABS: BUN/Creatinine Ratio 28 (6-26); Blood Urea Nitrogen 16 mg/dL (8-23); Calcium 8.9 mg/dL (8.6-10.3); Carbon Dioxide 29 mEq/L (23-29); Chloride 103 mEq/L (98-107); Glucose 184 mg/dL (70-105); Osmolality,Calculated 288 (280-300); Potassium 3.3 mEq/L (3.5-5.1); Sodium 136 mEq/L (136-145); eGFR For Non-African Americans > 60 (> 60)
[2019-01-08] MEDS: Ipratropium/Albuterol Neb 3 ML IH SCH ×5 (05:03→20:06)
[2019-01-08] MEDS ORDERED: Potassium Chloride 40 MEQ, Lidocaine 1% 2 ML in D5% in Water 500 ML IVPB ONE (06:10)
[2019-01-08] MEDS: Norepinephrine 4 MG in D5% in Water 250 ML IVC SCH (06:10)
[2019-01-08 06:42] LABS: Magnesium 1.7 mg/dL (1.6-2.6)
[2019-01-08] MEDS ORDERED: Potassium Phosphate 44 MEQ in 0.9 % Sodium Chloride 250 ML IVPB PRN (07:55)
[2019-01-08] MEDS ORDERED: Aminoglycoside Consult 1 EACH MC ONE (07:57)
[2019-01-08] MEDS: Aspirin Enteric Coated 81 MG Tablet PO SCH (08:19)
[2019-01-08] MEDS: predniSONE 20 MG TABLET PO SCH (08:20)
[2019-01-08] MEDS: Levofloxacin 500 MG/100 ML 500 MG/100 ML BAG IVPB SCH (08:21)
[2019-01-08] MEDS: Insulin LISPRO 300 UNITS/3 ML VIAL SQ SCH ×4 (08:22→20:29)
[2019-01-08] MEDS: lamoTRIgine 25 MG TABLET PO SCH ×2 (08:30→20:48)
[2019-01-08] MEDS: *HR* Promethazine 25 MG/ML VIAL IVP PRN ×3 (08:30→23:31)
[2019-01-08] MEDS: Phenylephrine 50 MG in D5% in Water 250 ML IVC SCH (08:45)
--- NOTE | 2019-01-08 08:49 | Pulmonology Progress Note ---
<Cele Pugh N - Last Filed: 01/08/19 13:43> Date of Encounter: 01/08/19 Time of Encounter: 08:47 Assessment and Plan (1) Hypotension Current Visit: No Status: Acute Uncertain etiology. May be secondary to metastatic carcinoma vs. beta ottoniel reaction vs. subclinical infection. Low suspicion for sepsis based on clinical appearance; however, borges-cultures have not been performed to rule that etiology out. Patient did have improvement in blood pressure after administration of glucagon 3 mg yesterday afternoon, with systolic blood pressure in the 60s. However, patient's blood pressures were noted to be persistently low throughout the evening and overnight, prompting transfer to ICU, placement of central venous catheter, and initiation of the Levophed for pressor support. Patient heart rate consistently in the 120s and 130s. Patient has not had echocardiogram performed due to persistent tachycardia. The patient was to be switched from Levophed to Elfego-Synephrine; however, blood pressure was noted to be within normal limits after Levophed had been titrated down and stopped. - Sputum and blood cultures pending. Urinalysis pending. Lactic acid remains WNL. Broadened abx coverage to include vancomycin, flagyl, and cefepime. Anticipate rapid deescalation of antibiotic therapy pending negative infectious workup. - Echocardiogram pending. - LE doppler ultrasound pending; however, preliminary read appears negative. Qualifiers: Hypotension type: unspecified hypotension type Qualified Code(s): I95.9 - Hypotension, unspecified (2) Tachycardia Current Visit: No Status: Acute Unclear etiology. Plan as above. 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 Patient reports that she was supposed to have a chemotherapy port placed tomorrow, with plan to begin treatment next week. - Recommend hold on port placement pending resolution of hypertension and tachycardia. - Consider hematology/oncology inpatient consult for recommendations. - Further management per primary team Qualifiers: Laterality: unspecified laterality Qualified Code(s): C34.90 - Malignant neoplasm of unspecified part of unspecified bronchus or lung (4) Pericardial effusion Current Visit: Yes Status: Acute CT of the abdomen and pelvis performed yesterday was significant for small pericardial effusion. Echocardiogram performed on 12/15/2018 demonstrated LVEF of 60%. Patient was noted to have normal left ventricle chamber size, wall thickness, and systolic function, as well as mild left ventricular diastolic dysfunction, normal right ventricular structure and function, no significant valvular dysfunction, and no evidence of pulmonary hypertension. Repeat echocardiogram has not been performed secondary to persistent tachycardia. - We will follow up on results of repeat echocardiogram once study is complete. - Further management per primary team. (5) Acute exacerbation of chronic obstructive airways disease Current Visit: Yes Status: Acute Patient is currently being treated for acute exacerbation of COPD. On exam this afternoon, she does not have any wheezes present; however, breath sounds are notably decreased bilaterally. Additionally, she has reported intermittent episodes of increased shortness of breath, with slow and progressive onset; however, this seems to have improved after administration of a breathing treatment and home anti-antianxiety medications. - Continue empiric antibiotic therapy with Levaquin. - Continue IV Solu-Medrol 60mg Q6 H. - Scheduled duonebs Q4H. - Albuterol nebs Q2H PRN. - Continue Symbicort 2 puffs twice a day. (6) Biliary colic Current Visit: Yes Status: Acute Long history of biliary colic, with recurrent episodes of nausea, vomiting, and diarrhea. Patient did have a general surgery consult with Dr. Patricia during her last admission. Per his consult note on 12/15/2018, patient may be appropriate candidate for laparoscopic cholecystectomy; however, she has multiple comorbidities, including newly diagnosed lung cancer, that would need to be assessed and managed first. Surgery consult was placed on 01/07/2019; however, patient has not been evaluated by surgery during this admission. CT of the abdomen and pelvis performed in the ED was significant for cholelithiasis and some pericholecystic fluid suggesting acute cholecystitis; however, gallbladder or ultrasound negative for signs of acute cholecystitis. Additionally, patient has remained afebrile with normal white count throughout this admission. - No indication for immediate surgical intervention at this time. - Continue to monitor and provide symptomatic relief as needed. (7) Anxiety Current Visit: Yes Status: Acute Patient has a history of anxiety, which is controlled at home with Klonopin 1mg QID PRN. Review of her MAR reveals that she has not been getting this medication to date during this admission. This medication was restarted this morning, and patient reported rapid improvement in subjective dyspnea. - Continue klonopin 1mg Q6H PRN. Subjective Principal diagnosis: Hypotension Interval history: Ms. 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 She presented to the ED last night due to worsening abdominal pain, which was associated with increased shortness of breath. Patient has been evaluated for biliary colic in the past, and was reportedly planning to undergo cholecystectomy during a prior hospitalization; however, she developed respiratory distress requiring intubation and was unable to proceed with operative management. Patient does report some increased wheezing, but denies any sputum production, chest congestion, or productive cough. CT of the abdomen and pelvis performed on 01/06/2019 was significant for cholelithiasis with presence of some pericholecystic fluid suggesting acute cholecystitis, pulmonary nodules at the lung bases, new right pleural effusion, and small pericardial effusion. Gallbladder ultrasound was significant for presence of gallstones and gallbladder sludge, without any other findings to suggest acute cholecystitis. Patient was admitted to the hospital for management of biliary colic and acute exacerbation of COPD. Pulmonology service was consulted this yesterday due to asymptomatic hypertension and tachycardia. Review of vital sign shows morning blood pressure is near 130s systolic; however, patient was noted to have a significantly decreased systolic pressure of 66 just after noon today. Patient has been persistently tachycardic, with heart rate between 110-136 bpm. Review of an ache R shows that patient received 2.5 mg of metoprolol at 01:52, with a second dose administered at 07:56. Patient has remained alert and oriented, and denies any complaints or concerns related to her blood pressure or heart rate. She denies any lower extremity swelling, palpitations, increased work of breathing, or history of DVT/PE. Patient has received 31 L fluid boluses, with mild improvement in blood pressure, from 66/55 at 12:05 to 75/56 at 15:07. Patient was noted to have persistent hypotension overnight, and was ultimately transferred to the ICU. A central venous catheter was placed, and she was started on pressor support with Levophed. At the time of exam this morning, patient voices no acute complaints or concerns, and reports that she continues fine despite her low blood pressure. Patient was also started on a heparin drip overnight due to concerns for acute pulmonary embolus and inconclusive chest CTA. Objective PUL Vital signs: Last Vital Signs Temp 98.1 F 01/08/19 08:28 Pulse 126 01/08/19 06:00 Resp 16 01/08/19 06:00 BP 94/69 01/08/19 06:00 Pulse Ox 93 01/08/19 06:00 General appearance: no acute distress, alert Eyes: nonicteric ENT: oropharynx moist Auscultation: bilateral: diminished breath sounds Cardiovascular: regular rate and rhythm (sinus tachycardia) Integumentary: normal Extremities: no cyanosis, no edema, no clubbing normal mental status, non-focal exam mood appropriate, anxious Results - Laboratory Findings CBC and BMP: 01/08/19 00:03 01/08/19 04:30 PT/INR, D-dimer PT 11.4 Seconds (9.4-12.1) 01/08/19 00:03 D-Dimer 1354 ng/mLFEU (0-500) H 01/07/19 19:29 Abnormal lab findings: Abnormal lab results RBC 3.60 M/mcL (3.82-4.97) L 01/08/19 00:03 Hgb 11.3 g/dL (11.5-15.4) L D 01/08/19 00:03 Hct 34.0 % (35.3-44.9) L 01/08/19 00:03 MPV 9.3 fL (9.4-12.4) L 01/08/19 00:03 Lymphocytes # 0.3 K/mcL (0.6-4.6) L 01/07/19 04:24 APTT 60.1 Seconds (26.0-36.0) H 01/06/19 16:27 D-Dimer 1354 ng/mLFEU (0-500) H 01/07/19 19:29 Heparin Anti-Xa, Unfract 0.03 IU/mL (0.30-0.70) L 01/08/19 00:03 Potassium 3.3 mEq/L (3.5-5.1) L 01/08/19 04:30 Creatinine 0.57 mg/dL (0.60-1.20) L 01/08/19 04:30 BUN/Creatinine Ratio 28 (6-26) H 01/08/19 04:30 Glucose 184 mg/dL (70-105) H 01/08/19 04:30 POC Glucose 142 mg/dL (70-99) H 01/07/19 22:28 AST 12 Units/L (13-39) L 01/07/19 04:24 B-Natriuretic Peptide 452 pg/mL (Less than 100) H 01/06/19 16:27 - Clinical Findings Intake & Output: Intake & Output 01/07/19 01/08/19 01/08/19 23:59 07:59 15:59 Intake Total 250 / 250 Output Total 1600 / 1600 900 / 900 Balance -1600 / -1600 -650 / -650 Weight 76.6 kg Consult Discharge Plan - Plan Referrals: Maisha Ruth, MONUMENT SETTER HELPER [Primary Care Provider] - <Vj Simons - Last Filed: 01/08/19 16:36> Date of Encounter: 01/08/19 Objective PUL Vital signs: Last Vital Signs Temp 98.1 F 01/08/19 08:28 Pulse 131 01/08/19 08:45 Resp 24 01/08/19 09:25 BP 151/100 01/08/19 08:45 Pulse Ox 94 01/08/19 09:25 Results - Laboratory Findings CBC and BMP: 01/08/19 00:03 01/08/19 04:30 PT/INR, D-dimer PT 11.4 Seconds (9.4-12.1) 01/08/19 00:03 D-Dimer 1354 ng/mLFEU (0-500) H 01/07/19 19:29 Abnormal lab findings: Abnormal lab results RBC 3.60 M/mcL (3.82-4.97) L 01/08/19 00:03 Hgb 11.3 g/dL (11.5-15.4) L D 01/08/19 00:03 Hct 34.0 % (35.3-44.9) L 01/08/19 00:03 MPV 9.3 fL (9.4-12.4) L 01/08/19 00:03 Lymphocytes # 0.3 K/mcL (0.6-4.6) L 01/07/19 04:24 APTT 60.1 Seconds (26.0-36.0) H 01/06/19 16:27 D-Dimer 1354 ng/mLFEU (0-500) H 01/07/19 19:29 Heparin Anti-Xa, Unfract 1.20 IU/mL (0.30-0.70) H* 01/08/19 08:29 Potassium 3.3 mEq/L (3.5-5.1) L 01/08/19 04:30 Creatinine 0.57 mg/dL (0.60-1.20) L 01/08/19 04:30 BUN/Creatinine Ratio 28 (6-26) H 01/08/19 04:30 Glucose 184 mg/dL (70-105) H 01/08/19 04:30 POC Glucose 142 mg/dL (70-99) H 01/07/19 22:28 AST 12 Units/L (13-39) L 01/07/19 04:24 B-Natriuretic Peptide 452 pg/mL (Less than 100) H 01/06/19 16:27 - Microbiology Findings Microbiology Findings: Microbiology, Last 48 Hours 01/08/19 08:25 Blood Culture - Preliminary Peripheral Central Cath, Picc Culture is incubating and being continuously monitored for growth. Final report to follow. 01/08/19 08:29 Blood Culture - Preliminary Peripheral Central Cath, Picc Culture is incubating and being continuously monitored for growth. Final report to follow. - Clinical Findings Intake & Output: Intake & Output 01/07/19 01/08/19 01/08/19 23:59 07:59 15:59 Intake Total 250 / 250 173 / 173 Output Total 1600 / 1600 900 / 900 150 / 150 Balance -1600 / -1600 -650 / -650 Weight 76.6 kg - Attending Attestation I examined this patient and my medical decision-making was reviewed with the Resident Physician. I agree with the documented findings, disposition and treatment plan as described except to the extent set forth below. Patient seen and examined. Labs, radiology, chart personally reviewed. 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 Pulmonary: Acceptable oxygenation and ventilation. Patient has advanced lung cancer and I believe it is reasonable to have palliative care consulted. Patient has evidence of right upper lobe lung collapse which is secondary to her lung cancer and postobstructive pneumonia is in the differential diagnosis and could be a cause for her septic-like picture. Patient is treated with broad- spectrum antibiotics. Cardiovascular: Hyportension has improved and to continue anticoagulation until we have more reasons to discontinue anticoagulation and repeat CT angiogram for more confirmation tomorrow. She has sinus tachycardia and because she had hypotension after she received beta ottoniel will monitor at this time and this could be secondary to her underlying malignancies. Patient may receive calcium channel ottoniel if this is continue for symptomatic reasons. Patient is been off Levophed at this time. GI: Nutrition per dietary and GI prophylaxis per routine Heme: DVT prophylaxis per routine ID: Continue antibiotics and plan to de-escalation Renal; urine out put and renal funtion reviewed Endorcine: blood glucose is monitored. I will change prednisone to IV Solu-Me drol. The possibility of component of adrenal insufficiency. Lines: all lines checked and no evidence of infections Skin: skin care to prevent pressure ulcers per nursing routine care I spent 35 min of Critical Care time with this patient. It involved decision making of high complexity to assess, manipulate, and support vital organ system failure and/or to prevent further life threatening deterioration of the patient's condition. The time involved in the performance of separately reportable procedures was not counted toward critical care time.
[2019-01-08] MEDS ORDERED: Ipratropium/Albuterol Neb 3 ML ONE (09:24)
[2019-01-08] MEDS: clonazePAM 1 MG TABLET PO PRN ×3 (10:09→23:31)
[2019-01-08] MEDS ORDERED: Furosemide 20 MG/2 ML VIAL IVP ONE ×2 (14:33→14:38)
[2019-01-08] MEDS: methylPREDNISolone 125 MG/2 ML VIAL IVP SCH ×3 (15:02→23:31)
[2019-01-08] MEDS: Cefepime HCl 1,000 MG in Water for inj. (sterile) 20 ML 10 ML IVP SCH ×2 (15:16→23:30)
[2019-01-08] MEDS: MetroNIDAZOLE 500 MG/100 ML 500 MG/100 ML BAG IVPB SCH ×2 (15:17→23:30)
[2019-01-08] MEDS ORDERED: Simethicone 80 MG TAB.CHEW PO PRN (16:14)
[2019-01-08] MEDS ORDERED: Furosemide 40 MG/4 ML VIAL IVP ONE (16:40)
[2019-01-08] MEDS: Pantoprazole 40 MG VIAL IVP SCH (18:12)
[2019-01-08] MEDS ORDERED: *HR* Metoprolol 5 MG/5 ML VIAL IVP SCH (19:30)
[2019-01-08] MEDS ORDERED: Budesonide/Formoterol 160/4.5 1 PUFF INH IH ONE (19:59)
[2019-01-08] MEDS: Budesonide/Formoterol 160/4.5 1 PUFF INH IH SCH (20:06)
[2019-01-08] MEDS: risperiDONE 1 MG TABLET PO SCH (20:46)
[2019-01-08 21:26] LABS: Bilirubin,Urine Negative (Negative); Blood,Urine Negative (Negative); Clarity,Urine Clear (Clear); Color,Urine Yellow (Yellow); Glucose,Urine (UA) Normal (Normal); Ketones,Urine Negative (Negative); Leukocyte Esterase,Urine Negative (Negative); Nitrite,Urine Negative (Negative); PH,Urine 6.5 pH Units (5.0-8.0); Protein,Urine Trace mg/dL (Neg-Trace); Specific Gravity,Urine 1.011 (1.010-1.025); Urobilinogen,Urine Normal (Normal)
[2019-01-09] MEDS: Ipratropium/Albuterol Neb 3 ML IH SCH ×7 (00:05→23:22)
[2019-01-09] MEDS: OXYCODONE Oral CONC 10 MG/0.5 ML ORAL.SYG SL PRN (01:04)
[2019-01-09] MEDS: Heparin 25,000 UNIT/500 ML D5W 25,000 UNIT/500 ML BAG IVC SCH (03:00)
[2019-01-09] MEDS: Pantoprazole 40 MG VIAL IVP SCH ×2 (05:37→18:28)
[2019-01-09] MEDS: methylPREDNISolone 125 MG/2 ML VIAL IVP SCH ×4 (05:37→23:26)
[2019-01-09] MEDS: clonazePAM 1 MG TABLET PO PRN ×3 (05:54→20:48)
[2019-01-09 06:00] LABS: Basophils % 0.2 %; Hematocrit 34.2 % (35.3-44.9); Immature Granulocytes % 0.6 % (0-4); Lymphocytes # 0.4 K/mcL (0.6-4.6); Mean Corpuscular HGB Conc 35.1 g/dL (31.6-35.5); Mean Corpuscular Hemoglobin 31.7 pg (28.0-33.3); Mean Corpuscular Volume 90.2 fL (83.0-100.0); Mean Platelet Volume 9.1 fL (9.4-12.4); Monocytes # 0.2 K/mcL (0.0-1.3); Monocytes % 3.9 %; Neutrophils # 4.6 K/mcL (1.6-8.9); Platelet Count 255 K/mcL (140-400); Red Blood Count 3.79 M/mcL (3.82-4.97); Red Cell Distribution Width 11.9 % (11.5-14.5); Segmented Neutrophils % 88.3 %
[2019-01-09 06:04] LABS: VBG Ionized Calcium 1.12 mmol/L (1.15-1.35)
[2019-01-09 06:22] LABS: BUN/Creatinine Ratio 25 (6-26); Blood Urea Nitrogen 20 mg/dL (8-23); Calcium 9.4 mg/dL (8.6-10.3); Carbon Dioxide 33 mEq/L (23-29); Chloride 91 mEq/L (98-107); Glucose 205 mg/dL (70-105); Magnesium 2.1 mg/dL (1.6-2.6); Osmolality,Calculated 283 (280-300); Phosphorous 3.4 mg/dL (2.7-4.5); Potassium 3.1 mEq/L (3.5-5.1); Sodium 132 mEq/L (136-145); eGFR For Non-African Americans > 60 (> 60)
[2019-01-09] MEDS: *HR* Promethazine 25 MG/ML VIAL IVP PRN ×2 (07:08→14:10)
--- NOTE | 2019-01-09 07:53 | Pulmonology Progress Note ---
<Won Elizondo - Last Filed: 01/09/19 19:08> Date of Encounter: 01/09/19 Time of Encounter: 17:16 Assessment and Plan (1) Hypotension Current Visit: Yes Status: Acute This is a 63-year-old female with past medical history significant for chronic abdominal pain due to recurrent biliary colic, stage IV's, cell carcinoma of the lungs bilateral metastatic pulmonary nodules who presented to ED with worsening abdominal pain associated with shortness of breath. - Pulmonary initially consulted and asymptomatic hypertension and tachycardia. However, patient subsequently diagnosed to have hypotension. Tachycardia remained. Patient has remained alert and oriented without any complaints. - Overnight patient continued to be hypotensive despite fluid boluses. Patient was brought to the ICU central venous catheter placed additionally patient started on pressors. CT angiogram initially was limited and cannot rule out PE. Heparin was started to the possibility of PE. - CTA today indicative of right upper lobe pulmonary embolus. Pt started on Lovenox SQ BID PLAN: Hypotension likely multifactorial secondary to underlying PE, lung cancer, and multiple comorbidities - Cont Lovenox for treatment of PE - Monitor vitals - Avoid B-Blockers in treatment of Tachycardia - Monitor Hb; transfuse for goal of Hb > 7 Qualifiers: Hypotension type: unspecified hypotension type Qualified Code(s): I95.9 - Hypotension, unspecified (2) Tachycardia Current Visit: Yes Status: Acute Plan as above (3) Squamous cell carcinoma of lung, stage IV Current Visit: Yes Status: Acute Hx stage IV squamous cell carcinoma of lungs w/ b/l metastatic pulmonary nodules - Had planned to have port placed next week, to start chemo CTA chest (01/09/19): - Small segmental pulmonary embolism within the right upper lung branch - Small pericardial effusion. Interlobular septal thickening with small right pleural effusion and right lung base pulmonary opacity. - Redemonstration of right upper lung collapse, secondary to the right upper lobe bronchus obstruction. Likely secondary to compression or invasion of right paramediastinal mass extending into the right hilum. Unchanged enlarged 14 mm superior mediastinal lymph node. - Multiple pulmonary nodules bilaterally, somewhat cavitation. Findings could represent pulmonary metastasis. - Nonspecific thickening of midthoracic esophagus. - Extensive atherosclerotic disease involving origin of great vessels. Right common carotid artery appears significantly smaller compared to left. No focal occlusion identified within the visualized portion. PLAN: - Hold placement of port given hypotension, tachycardia - Cont to monitor vitals - Consider Heme/Onc consult for further recommendations Qualifiers: Laterality: unspecified laterality Qualified Code(s): C34.90 - Malignant neoplasm of unspecified part of unspecified bronchus or lung (4) Pericardial effusion Current Visit: Yes Status: Acute CT of the abdomen and pelvis performed yesterday was significant for small per icardial effusion. Echocardiogram performed on 12/15/2018 demonstrated LVEF of 60%. Patient was note d to have normal left ventricle chamber size, wall thickness, and systolic function, as well as mild left ventricular diastolic dysfunction, normal right ventricular structure and function, no significant valvular dysfunction, and no evidence of pulmonary hypertension. Repeat echocardiogram has not been performed secondary to persistent tachycardia. PLAN: - Follow up on Echo with resolution of tachycardia (5) Pulmonary embolism Current Visit: Yes Status: Acute CTA chest (01/09/19): - Small segmental pulmonary embolism within the right upper lung branch PLAN: - Started on Lovenox 80mg SQ BID Qualifiers: Pulmonary embolism type: other Chronicity: acute Acute cor pulmonale presence: without acute cor pulmonale Qualified Code(s): I26.99 - Other pulmonary embolism without acute cor pulmonale (6) Biliary colic Current Visit: Yes Status: Acute Hx biliary colic - recurrent episodes nausea, vomiting, diarrhea - Previous admission surgery consult suggested pt may benefit from laparascopic cholecystectomy but needed further management of multiple comorbidities US Gallbladder: - Negative for signs of acute cholecystitis CT Abd/Pelvis (01/09/19): - Cholelithiasis with probable gallbladder sludge. Additionally small amount per cholecystic inflammation present. - Mild nonspecific thickening of distal stomach and duodenum. - Focal narrowing of colon and hepatic flexure PLAN: Pt reports improving abdominal pain. Advance diet as tolerated - Cont to monitor; no indication for immediate surgical intervention at this time - Provide symptomatic relief as needed (7) Anxiety Current Visit: Yes Status: Acute Hx anxiety managed with Klonopin 1mg QID PRN PLAN: - Cont Clonopin as needed Subjective Principal diagnosis: Hypotension Interval history: Patient seen and examined resting comfortably at bedside currently in no acute distress. Patient remains on pressors. Additionally currently on 3 L nasal cannula but maintaining appropriate O2 saturation. Patient remains tachycardic. However notes that she feels like she is breathing better, and has decreased abdominal pain, bloating, distention. Given hypotension and tachycardia, CTA Chest done, which demonstrated small segmental pulmonary embolism within right upper lung branch. Pt started on Lovenox to tx PE given patient has malignancy. CTA chest (01/09/19): - Small segmental pulmonary embolism within the right upper lung branch - Small pericardial effusion. Interlobular septal thickening with small right pleural effusion and right lung base pulmonary opacity. - Redemonstration of right upper lung collapse, secondary to the right upper lobe bronchus obstruction. Likely secondary to compression or invasion of right paramediastinal mass extending into the right hilum. Unchanged enlarged 14 mm superior mediastinal lymph node. - Multiple pulmonary nodules bilaterally, somewhat cavitation. Findings could represent pulmonary metastasis. - Nonspecific thickening of midthoracic esophagus. - Extensive atherosclerotic disease involving origin of great vessels. Right common carotid artery appears significantly smaller compared to left. No focal occlusion identified within the visualized portion. CT Abd/Pelvis (01/09/19): - Cholelithiasis with probable gallbladder sludge. Additionally small amount per cholecystic inflammation present. - Mild nonspecific thickening of distal stomach and duodenum. - Focal narrowing of colon and hepatic flexure Objective PUL Vital signs: Last Vital Signs Temp 97.8 F 01/08/19 23:26 Pulse 118 01/09/19 06:00 Resp 20 01/09/19 06:00 BP 75/62 01/09/19 06:00 Pulse Ox 90 01/09/19 06:00 General appearance: no acute distress, alert Eyes: nonicteric ENT: oropharynx moist Neck: supple Effort: normal Auscultation: bilateral: diminished breath sounds (Diminished breath sounds b/l; no wheezes, rales, rhonchi, crackles) Cardiovascular: regular rate and rhythm (Sinus Tachycardia) Gastrointestinal: normoactive bowel sounds, soft, non-tender, non-distended Extremities: no cyanosis, no edema normal mental status, non-focal exam, pupils equal and round, CN II-XII normal mood appropriate, affect normal Results - Laboratory Findings CBC and BMP: 01/09/19 05:40 01/09/19 05:40 PT/INR, D-dimer PT 11.4 Seconds (9.4-12.1) 01/08/19 00:03 D-Dimer 1354 ng/mLFEU (0-500) H 01/07/19 19:29 Abnormal lab findings: Abnormal lab results RBC 3.79 M/mcL (3.82-4.97) L 01/09/19 05:40 Hct 34.2 % (35.3-44.9) L 01/09/19 05:40 MPV 9.1 fL (9.4-12.4) L 01/09/19 05:40 Lymphocytes # 0.4 K/mcL (0.6-4.6) L 01/09/19 05:40 APTT 60.1 Seconds (26.0-36.0) H 01/06/19 16:27 D-Dimer 1354 ng/mLFEU (0-500) H 01/07/19 19:29 Sodium 132 mEq/L (136-145) L 01/09/19 05:40 Potassium 3.1 mEq/L (3.5-5.1) L 01/09/19 05:40 Chloride 91 mEq/L (98-107) L 01/09/19 05:40 Carbon Dioxide 33 mEq/L (23-29) H 01/09/19 05:40 Glucose 205 mg/dL (70-105) H 01/09/19 05:40 POC Glucose 198 mg/dL (70-99) H 01/08/19 19:13 Venous Ioniz Calcium 1.12 mmol/L (1.15-1.35) L 01/09/19 06:02 AST 12 Units/L (13-39) L 01/07/19 04:24 B-Natriuretic Peptide 452 pg/mL (Less than 100) H 01/06/19 16:27 - Microbiology Findings Microbiology Findings: Microbiology, Last 48 Hours 01/08/19 08:25 Blood Culture - Preliminary Peripheral Central Cath, Picc Culture is incubating and being continuously monitored for growth. Final report to follow. 01/08/19 08:29 Blood Culture - Preliminary Peripheral Central Cath, Picc Culture is incubating and being continuously monitored for growth. Final report to follow. - Clinical Findings Intake & Output: Intake & Output 01/08/19 01/08/19 01/09/19 15:59 23:59 07:59 Intake Total 548 / 548 416 / 416 300 / 300 Output Total 550 / 550 2150 / 2150 300 / 300 Balance -2 / -2 -1734 / -1734 0 / 0 Weight 84.6 kg 79.5 kg Consult Discharge Plan - Plan Referrals: Maisha Ruth, [facility] [Primary Care Provider] - <Vj Simons - Last Filed: 01/09/19 22:55> Date of Encounter: 01/09/19 Objective PUL Vital signs: Last Vital Signs Temp 98.4 F 01/09/19 09:00 Pulse 116 01/09/19 09:00 Resp 16 01/09/19 09:00 BP 73/47 01/09/19 09:00 Pulse Ox 90 01/09/19 09:00 Results - Laboratory Findings CBC and BMP: 01/09/19 05:40 01/09/19 05:40 PT/INR, D-dimer PT 11.4 Seconds (9.4-12.1) 01/08/19 00:03 D-Dimer 1354 ng/mLFEU (0-500) H 01/07/19 19:29 Abnormal lab findings: Abnormal lab results RBC 3.79 M/mcL (3.82-4.97) L 01/09/19 05:40 Hct 34.2 % (35.3-44.9) L 01/09/19 05:40 MPV 9.1 fL (9.4-12.4) L 01/09/19 05:40 Lymphocytes # 0.4 K/mcL (0.6-4.6) L 01/09/19 05:40 APTT 60.1 Seconds (26.0-36.0) H 01/06/19 16:27 D-Dimer 1354 ng/mLFEU (0-500) H 01/07/19 19:29 Sodium 132 mEq/L (136-145) L 01/09/19 05:40 Potassium 3.1 mEq/L (3.5-5.1) L 01/09/19 05:40 Chloride 91 mEq/L (98-107) L 01/09/19 05:40 Carbon Dioxide 33 mEq/L (23-29) H 01/09/19 05:40 Glucose 205 mg/dL (70-105) H 01/09/19 05:40 POC Glucose 198 mg/dL (70-99) H 01/08/19 19:13 Venous Ioniz Calcium 1.12 mmol/L (1.15-1.35) L 01/09/19 06:02 AST 12 Units/L (13-39) L 01/07/19 04:24 B-Natriuretic Peptide 452 pg/mL (Less than 100) H 01/06/19 16:27 - Microbiology Findings Microbiology Findings: Microbiology, Last 48 Hours 01/08/19 08:25 Blood Culture - Preliminary Peripheral Central Cath, Picc Culture is incubating and being continuously monitored for growth. Final report to follow. 01/08/19 08:29 Blood Culture - Preliminary Peripheral Central Cath, Picc Culture is incubating and being continuously monitored for growth. Final report to follow. - Clinical Findings Intake & Output: Intake & Output 01/08/19 01/09/19 01/09/19 23:59 07:59 15:59 Intake Total 416 / 416 300 / 300 Output Total 2150 / 2150 300 / 300 Balance -1734 / -1734 0 / 0 Weight 79.5 kg 79.5 kg - Attending Attestation I examined this patient and my medical decision-making was reviewed with the Resident Physician. I agree with the documented findings, disposition and treatment plan as described except to the extent set forth below. Patient seen and examined. Labs, radiology, chart personally reviewed. Agree with resident's history and physical, assessment, plan with following comments: [employer]: Patient follows commands, Pulmonary: Acceptable oxygenation and ventilation and patient denies any worsening of her shortness of breath and actually she is feeling better. Again with her lung cancer, there is possibility of postobstructive pneumonia and I do not feel bronchoscopy will be adding anything more. Cardiovascular: Blood pressure was stable, unfortunately for her sinus tachycardia she has received beta ottoniel and her blood pressure is dropping again and she seems to have good perfusion and total monitor at this time, however she might need vasopressors again to support her blood pressure. It still not clear to me the reason for her sinus tachycardia for that reason we will repeat CT angiogram and so far no strong evidence of pulmonary embolism. Subsequently there was evidence of PE and that explain her sinus tachycardia. Will change to Lovenox because of her history of lung cancer and avoid any beta- ottoniel. Patient is requiring vasopressor now and will avoid any thrombolytics now as long as patient has good evidence that she is been perfused. Prognosis remain poor. GI: Nutrition per dietary and GI prophylaxis per routine. Patient has abdominal pain and since she is going to have CT chest and will include CT abdomen and pelvis as well. Heme: DVT prophylaxis per routine. Continue anticoagulation for now. ID: Continue antibiotics and plan to de-escalation Renal; urine out put and renal funtion reviewed Endorcine: blood glucose is monitored Lines: all lines checked and no evidence of infections Skin: skin care to prevent pressure ulcers per nursing routine care The high probability of a clinically significant, sudden or life threatening deterioration of the cardiopulmonary systems required my full and direct attention, intervention and personal management. The aggregate critical care time was 35 minutes. This time is in addition to time spent performing reported procedures but includes the following: [] Data Review and interpretation [] Patient assessment and monitoring of vital signs [] Documentation [] Medication orders and management
[2019-01-09] MEDS ORDERED: Isovue-370 500 ML BOTTLE IVP ONE (08:11)
[2019-01-09] MEDS: Budesonide/Formoterol 160/4.5 1 PUFF INH IH SCH ×2 (08:26→19:42)
[2019-01-09] MEDS: Cefepime HCl 1,000 MG in Water for inj. (sterile) 20 ML 10 ML IVP SCH ×3 (08:53→23:27)
[2019-01-09] MEDS: MetroNIDAZOLE 500 MG/100 ML 500 MG/100 ML BAG IVPB SCH ×3 (08:54→23:27)
[2019-01-09] MEDS: Levofloxacin 500 MG/100 ML 500 MG/100 ML BAG IVPB SCH (08:54)
[2019-01-09] MEDS: Insulin LISPRO 300 UNITS/3 ML VIAL SQ SCH ×4 (08:55→20:50)
[2019-01-09] MEDS: lamoTRIgine 25 MG TABLET PO SCH ×2 (10:59→20:48)
[2019-01-09] MEDS: Aspirin Enteric Coated 81 MG Tablet PO SCH (10:59)
[2019-01-09] MEDS: Phenylephrine 50 MG in D5% in Water 250 ML IVC SCH ×2 (11:00→11:10)
[2019-01-09] MEDS: *HR* Enoxaparin 80 MG/0.8 ML SYRINGE SQ SCH (13:39)
[2019-01-09] MEDS: risperiDONE 1 MG TABLET PO SCH (20:48)
--- NOTE | 2019-01-09 21:34 | Electrocardiograph Report ---
[address] [id number] Test Date: 2019-01-08 Pat Name: Faith Mace Department: [id number] Room: [facility] Gender: F Header Operator: LEON : 1955 Requested By: Heri Marks Order Number: [id number] Reading MD: Mallorie Galaviz Measurements Intervals [place] Rate: 122 P: 73 MO: 163 QRS: -3 QRSD: 89 T: 77 QT: 394 QTc: 466 Interpretive Statements SINUS TACHYCARDIA POOR r-WAVE PROGRESSION NONSPECIFIC T-WAVE ABNORMALITY Electronically Signed On 01-09-2019 21:33:11 EST by Mallorie Galaviz
[2019-01-10] MEDS: *HR* Enoxaparin 80 MG/0.8 ML SYRINGE SQ SCH (01:06)
[2019-01-10] MEDS: Ipratropium/Albuterol Neb 3 ML IH SCH ×5 (03:20→19:49)
[2019-01-10 04:50] LABS: Hematocrit 33.2 % (35.3-44.9); Hemoglobin 11.4 g/dL (11.5-15.4); Immature Granulocytes % 0.7 % (0-4); Lymphocytes # 0.4 K/mcL (0.6-4.6); Lymphocytes % 4.1 %; Mean Corpuscular HGB Conc 34.3 g/dL (31.6-35.5); Mean Corpuscular Hemoglobin 31.5 pg (28.0-33.3); Mean Corpuscular Volume 91.7 fL (83.0-100.0); Mean Platelet Volume 9.1 fL (9.4-12.4); Monocytes # 0.4 K/mcL (0.0-1.3); Monocytes % 4.7 %; Neutrophils # 7.7 K/mcL (1.6-8.9); Platelet Count 327 K/mcL (140-400); Red Blood Count 3.62 M/mcL (3.82-4.97); Red Cell Distribution Width 11.9 % (11.5-14.5); Segmented Neutrophils % 90.5 %
[2019-01-10 05:05] LABS: BUN/Creatinine Ratio 38 (6-26); Blood Urea Nitrogen 30 mg/dL (8-23); Calcium 9.3 mg/dL (8.6-10.3); Carbon Dioxide 31 mEq/L (23-29); Chloride 96 mEq/L (98-107); Glucose 207 mg/dL (70-105); Osmolality,Calculated 286 (280-300); Potassium 3.3 mEq/L (3.5-5.1); Sodium 132 mEq/L (136-145); eGFR For Non-African Americans > 60 (> 60)
[2019-01-10] MEDS: methylPREDNISolone 125 MG/2 ML VIAL IVP SCH ×4 (06:13→23:43)
[2019-01-10] MEDS: Pantoprazole 40 MG VIAL IVP SCH ×2 (06:13→17:44)
[2019-01-10] MEDS: Phenylephrine 50 MG in D5% in Water 250 ML IVC SCH (06:13)
[2019-01-10] MEDS ORDERED: Perflutren Lipid Microsphere 1.3 ML in 0.9 % Sodium Chloride 8.7 ML IVP ONE (07:21)
[2019-01-10] MEDS: Budesonide/Formoterol 160/4.5 1 PUFF INH IH SCH ×2 (07:26→19:49)
--- NOTE | 2019-01-10 08:06 | Pulmonology Progress Note ---
<Won Elizondo - Last Filed: 01/10/19 16:48> Date of Encounter: 01/10/19 Time of Encounter: 16:35 Assessment and Plan (1) Hypotension Current Visit: Yes Status: Acute This is a 63-year-old female with past medical history significant for chronic abdominal pain due to recurrent biliary colic, stage IV's, cell carcinoma of the lungs bilateral metastatic pulmonary nodules who presented to ED with worsening abdominal pain associated with shortness of breath. - Pulmonary initially consulted and asymptomatic hypertension and tachycardia. However, patient subsequently diagnosed to have hypotension. Tachycardia remained. Patient has remained alert and oriented without any complaints. - Overnight patient continued to be hypotensive despite fluid boluses. Patient was brought to the ICU central venous catheter placed additionally patient started on pressors. CT angiogram initially was limited and cannot rule out PE. Heparin was started to the possibility of PE. - CTA today indicative of right upper lobe pulmonary embolus. - Given surgery indicated pt may undergo percutaneous cholecystostomy tomorrow, will switch patient back to Heparin drip for now - pt reports improving symptoms today; BP responded to 5% albumin 500cc; weaning off levophed as tolerated Echo (01/10/19): - LVEF 60-65%. Normal LV chamber size, wall thickness and systolic function. - Normal right ventricular structure and function. - Small to moderate pericardial effusion without echocardiographic evidence of tamponade. PLAN: Hypotension likely multifactorial secondary to underlying PE, lung cancer, and multiple comorbidities; unlikely cardiac tamponade based on echo findings - Cont Heparin Drip for treatment of PE - Monitor vitals - Avoid B-Blockers in treatment of Tachycardia - Monitor Hb; transfuse for goal of Hb > 7 - Wean off levophed as tolerated - Plan for percutaneous cholecystostomy tomorrow - Given patient has remained afebrile without leukocytosis, and infectious workup has been essentially negative, may consider de-escalation of antibiotic therapy Qualifiers: Hypotension type: unspecified hypotension type Qualified Code(s): I95.9 - Hypotension, unspecified (2) Tachycardia Current Visit: Yes Status: Acute Plan as above (3) Squamous cell carcinoma of lung, stage IV Current Visit: Yes Status: Acute Hx stage IV squamous cell carcinoma of lungs w/ b/l metastatic pulmonary nodules - Had planned to have port placed next week, to start chemo CTA chest (01/09/19): - Small segmental pulmonary embolism within the right upper lung branch - Small pericardial effusion. Interlobular septal thickening with small right pleural effusion and right lung base pulmonary opacity. - Redemonstration of right upper lung collapse, secondary to the right upper lobe bronchus obstruction. Likely secondary to compression or invasion of right paramediastinal mass extending into the right hilum. Unchanged enlarged 14 mm superior mediastinal lymph node. - Multiple pulmonary nodules bilaterally, somewhat cavitation. Findings could represent pulmonary metastasis. - Nonspecific thickening of midthoracic esophagus. - Extensive atherosclerotic disease involving origin of great vessels. Right common carotid artery appears significantly smaller compared to left. No focal occlusion identified within the visualized portion. PLAN: - Hold placement of port given hypotension, tachycardia - Cont to monitor vitals - Consider Heme/Onc consult for further recommendations Qualifiers: Laterality: unspecified laterality Qualified Code(s): C34.90 - Malignant neoplasm of unspecified part of unspecified bronchus or lung (4) Pericardial effusion Current Visit: Yes Status: Acute CT of the abdomen and pelvis performed yesterday was significant for small pericardial effusion. Echocardiogram performed on 12/15/2018 demonstrated LVEF of 60%. Patient was noted to have normal left ventricle chamber size, wall thickness, and systolic function, as well as mild left ventricular diastolic dysfunction, normal right v entricular structure and function, no significant valvular dysfunction, and no evidence of pulmonary hypertension. Echo (01/10/19): - LVEF 60-65%. Normal LV chamber size, wall thickness and systolic function. - Normal right ventricular structure and function. - Small to moderate pericardial effusion without echocardiographic evidence of tamponade. PLAN: Unlikely contributing to patient's hypotension as no signs of cardiac tamponade - Cont to monitor vitals (5) Pulmonary embolism Current Visit: Yes Status: Acute CTA chest (01/09/19): - Small segmental pulmonary embolism within the right upper lung branch PLAN: - Given planned surgery tomorrow; switch to Heparin drip Qualifiers: Pulmonary embolism type: other Chronicity: acute Acute cor pulmonale presence: without acute cor pulmonale Qualified Code(s): I26.99 - Other pulmonary embolism without acute cor pulmonale (6) Biliary colic Current Visit: Yes Status: Acute Hx biliary colic - recurrent episodes nausea, vomiting, diarrhea - Previous admission surgery consult suggested pt may benefit from laparascopic cholecystectomy but needed further management of multiple comorbidities US Gallbladder: - Gallstone and gallbladder sludge - Negative for signs of acute cholecystitis CT Abd/Pelvis (01/09/19): - Cholelithiasis with probable gallbladder sludge. Additionally small amount per cholecystic inflammation present. - Mild nonspecific thickening of distal stomach and duodenum. - Focal narrowing of colon and hepatic flexure PLAN: Per surgery, pt would benefit from percutaneous cholecystostomy tube placement by IR due to persistent RUQ tenderness - Have switched Lovenox to Heparin Drip for treatment of PE - Hold Heparin 3 hours prior to procedure - Currently NPO - With resumption of diet, start diabetic low fat diet (7) Anxiety Current Visit: Yes Status: Acute Hx anxiety managed with Klonopin 1mg QID PRN PLAN: - Cont Klonopin as needed Subjective Principal diagnosis: Hypotension Interval history: Pt seen and examined at bedside this morning. No complaints overnight. Reports improving clinical status. Pt remains afebrile without leukocytosis. Otherwise remains hemodynamically stable. Slowly weaning off pressors. In addition, gave 500cc 5% albumin. Followed up with surgery team regarding patient's Cholelithia sis and RUQ abdominal pain. Per surgery, pt would benefit from percutaneous cholecystostomy placement. Plan for procedure tomorrow. Advised switching from Lovenox to Heparin drip. Objective PUL Vital signs: Last Vital Signs Temp 98.3 F 01/10/19 04:00 Pulse 112 01/10/19 06:00 Resp 18 01/10/19 07:27 BP 92/68 01/10/19 07:27 Pulse Ox 93 01/10/19 07:27 General appearance: no acute distress, alert Eyes: nonicteric ENT: oropharynx moist Auscultation: bilateral: diminished breath sounds (Mildly diminished breath sounds especially R>L; otherwise, no wheezes, rales, crackles) Cardiovascular: regular rate and rhythm Gastrointestinal: normoactive bowel sounds, soft, tender (Mild tenderness to palpation in RUQ) Extremities: no edema normal mental status, non-focal exam, pupils equal and round, CN II-XII normal mood appropriate, affect normal Results - Laboratory Findings CBC and BMP: 01/10/19 04:10 01/10/19 04:10 PT/INR, D-dimer PT 11.4 Seconds (9.4-12.1) 01/08/19 00:03 D-Dimer 1354 ng/mLFEU (0-500) H 01/07/19 19:29 Abnormal lab findings: Abnormal lab results RBC 3.62 M/mcL (3.82-4.97) L 01/10/19 04:10 Hgb 11.4 g/dL (11.5-15.4) L 01/10/19 04:10 Hct 33.2 % (35.3-44.9) L 01/10/19 04:10 MPV 9.1 fL (9.4-12.4) L 01/10/19 04:10 Lymphocytes # 0.4 K/mcL (0.6-4.6) L 01/10/19 04:10 APTT 60.1 Seconds (26.0-36.0) H 01/06/19 16:27 D-Dimer 1354 ng/mLFEU (0-500) H 01/07/19 19:29 Sodium 132 mEq/L (136-145) L 01/10/19 04:10 Potassium 3.3 mEq/L (3.5-5.1) L 01/10/19 04:10 Chloride 96 mEq/L (98-107) L 01/10/19 04:10 Carbon Dioxide 31 mEq/L (23-29) H 01/10/19 04:10 BUN 30 mg/dL (8-23) H 01/10/19 04:10 BUN/Creatinine Ratio 38 (6-26) H 01/10/19 04:10 Glucose 207 mg/dL (70-105) H 01/10/19 04:10 POC Glucose 244 mg/dL (70-99) H 01/09/19 20:38 Venous Ioniz Calcium 1.12 mmol/L (1.15-1.35) L 01/09/19 06:02 AST 12 Units/L (13-39) L 01/07/19 04:24 B-Natriuretic Peptide 452 pg/mL (Less than 100) H 01/06/19 16:27 - Microbiology Findings Microbiology Findings: Microbiology, Last 48 Hours 01/08/19 08:25 Blood Culture - Preliminary Peripheral Central Cath, Picc Culture is incubating and being continuously monitored for growth. Final report to follow. 01/08/19 08:29 Blood Culture - Preliminary Peripheral Central Cath, Picc Culture is incubating and being continuously monitored for growth. Final report to follow. - Clinical Findings Intake & Output: Intake & Output 01/09/19 01/10/19 01/10/19 23:59 07:59 15:59 Intake Total 420 / 420 595 / 595 Output Total 550 / 550 Balance -130 / -130 595 / 595 Weight 80.7 kg Consult Discharge Plan - Plan Referrals: Maisha Ruth, [employer] [Primary Care Provider] - <Barrington Oneill - Last Filed: 01/10/19 17:27> Date of Encounter: 01/10/19 Objective PUL Vital signs: Last Vital Signs Temp 97.9 F 01/10/19 08:40 Pulse 120 01/10/19 09:08 Resp 19 01/10/19 09:08 BP 88/61 01/10/19 09:08 Pulse Ox 95 01/10/19 09:08 Results - Laboratory Findings CBC and BMP: 01/10/19 04:10 01/10/19 04:10 PT/INR, D-dimer PT 11.4 Seconds (9.4-12.1) 01/08/19 00:03 D-Dimer 1354 ng/mLFEU (0-500) H 01/07/19 19:29 Abnormal lab findings: Abnormal lab results RBC 3.62 M/mcL (3.82-4.97) L 01/10/19 04:10 Hgb 11.4 g/dL (11.5-15.4) L 01/10/19 04:10 Hct 33.2 % (35.3-44.9) L 01/10/19 04:10 MPV 9.1 fL (9.4-12.4) L 01/10/19 04:10 Lymphocytes # 0.4 K/mcL (0.6-4.6) L 01/10/19 04:10 APTT 60.1 Seconds (26.0-36.0) H 01/06/19 16:27 D-Dimer 1354 ng/mLFEU (0-500) H 01/07/19 19:29 Sodium 132 mEq/L (136-145) L 01/10/19 04:10 Potassium 3.3 mEq/L (3.5-5.1) L 01/10/19 04:10 Chloride 96 mEq/L (98-107) L 01/10/19 04:10 Carbon Dioxide 31 mEq/L (23-29) H 01/10/19 04:10 BUN 30 mg/dL (8-23) H 01/10/19 04:10 BUN/Creatinine Ratio 38 (6-26) H 01/10/19 04:10 Glucose 207 mg/dL (70-105) H 01/10/19 04:10 POC Glucose 244 mg/dL (70-99) H 01/09/19 20:38 Venous Ioniz Calcium 1.12 mmol/L (1.15-1.35) L 01/09/19 06:02 AST 12 Units/L (13-39) L 01/07/19 04:24 B-Natriuretic Peptide 452 pg/mL (Less than 100) H 01/06/19 16:27 - Microbiology Findings Microbiology Findings: Microbiology, Last 48 Hours 01/08/19 08:25 Blood Culture - Preliminary Peripheral Central Cath, Picc Culture is incubating and being continuously monitored for growth. Final report to follow. 01/08/19 08:29 Blood Culture - Preliminary Peripheral Central Cath, Picc Culture is incubating and being continuously monitored for growth. Final report to follow. - Clinical Findings Intake & Output: Intake & Output 01/09/19 01/10/19 01/10/19 23:59 07:59 15:59 Intake Total 420 / 420 595 / 595 100 / 100 Output Total 550 / 550 Balance -130 / -130 595 / 595 100 / 100 Weight 80.7 kg - Attending Attestation I examined this patient and my medical decision-making was reviewed with the Resident Physician. I agree with the documented findings, disposition and treatment plan as described except to the extent set forth below. We independently had [id number] contact with the patient Patient seen and examined at bedside Labs, radiology, chart personally reviewed. Management was reviewed during multidisciplinary critical care rounds. BASTING PULLER: Awake and alert no focal deficit Pulm: Acceptable oxygenation on nasal cannula O2. She has acute PE on Lovenox. This is subsegmental and unclear full clinical significance. Doubt cause of Tachycardia or Hypotension. Cards: Remains hypotensive likely multifactorial including underlying malignancy possible adrenal insufficiency and occult sepsis echocardiogram shows pericardial effusion without A non-physiology. Right atrial pressure appears to be normal we will give a Colyte volume bolus to see if that improves. Continue to avoid beta blockers. GI: Cannot exclude the possibility of underlying acute cholecystitis continue antibiotics general surgery consultation Nutrition: Nothing by mouth for now Renal: UOP Monitored, Cont to Trend sCr and monitor Electrolytes. ID: Cont antibiotics cultures of been obtained Heme/Onc: DVT prophylaxis given Endo: Glucose Monitored Integ/MSK: Skin Care per routine ICU Nursing Protocol to prevent ulcers. Lines: All lines examined without evidence of infection : Dispo: Would continue to monitor in ICU for vasopressor use CODE: Full
[2019-01-10] MEDS: Aspirin Enteric Coated 81 MG Tablet PO SCH (08:15)
[2019-01-10] MEDS: Cefepime HCl 1,000 MG in Water for inj. (sterile) 20 ML 10 ML IVP SCH ×3 (08:16→23:44)
[2019-01-10] MEDS: lamoTRIgine 25 MG TABLET PO SCH ×2 (08:16→20:15)
[2019-01-10] MEDS: MetroNIDAZOLE 500 MG/100 ML 500 MG/100 ML BAG IVPB SCH ×3 (08:16→23:43)
[2019-01-10] MEDS: Levofloxacin 500 MG/100 ML 500 MG/100 ML BAG IVPB SCH (08:17)
[2019-01-10] MEDS: Insulin LISPRO 300 UNITS/3 ML VIAL SQ SCH ×4 (08:18→21:40)
[2019-01-10] MEDS: clonazePAM 1 MG TABLET PO PRN ×3 (09:38→22:58)
[2019-01-10] MEDS: *HR* Promethazine 25 MG/ML VIAL IVP PRN ×2 (09:38→17:44)
[2019-01-10 11:32] LABS: Alanine Aminotransferase 7 Units/L (7-52); Albumin 3.3 g/dL (3.5-5.7); Albumin/Globulin Ratio 1.4 (1.1-2.2); Alkaline Phosphatase 39 Units/L (34-104); Aspartate Amino Transferase 8 Units/L (13-39); Bilirubin,Indirect 0.4 mg/dL (0.0-1.2); Bilirubin,Total 0.4 mg/dL (0.3-1.0); Globulin 2.3 g/dL (2.4-3.5); Lipase 23 Units/L (11-82); Total Protein 5.6 g/dL (6.4-8.9)
--- NOTE | 2019-01-10 11:38 | General Surgery Consult Note ---
<Tammi Meneses - Last Filed: 01/10/19 15:36> Date of Encounter: 01/10/19 Assessment and Plan (1) Symptomatic cholelithiasis Current Visit: Yes Status: Chronic CT abd/pelvis shows cholelithiasis with probable gallbladder sludge. RUQ ultrasound shows gallstone and gallbladder sludge. No acute cholecystitis. Hepatic panel is unremarkable. Plan for percutaneous cholecystectomy by IR. IR is already aware. Hold heparin drip for 3 hours prior to procedure. Continue supportive care. Continue to monitior. (2) Pulmonary embolism Current Visit: Yes Status: Acute CTA chest shows small segmental PE in right upper lung Heparin drip Management per primary team. Qualifiers: Pulmonary embolism type: other Chronicity: acute Acute cor pulmonale presence: without acute cor pulmonale Qualified Code(s): I26.99 - Other pulmonary embolism without acute cor pulmonale History of Present Illness Requesting physician: Won Elizondo History of present illness: 63 year old female with past medical history of COPD, CHF, CAD, diabetes, HTN, HLD, PAD, strokes, and cancer. Patient was diagnosed with PE yesterday and is currently in ICU. Surgery is consulted for RUQ pain. Patient complains of abdominal pain. Indicates pain at epigastrium and RUQ. It radiates to her back. Patient states it is not worse with eating. Patient states she started vomiting 4 days ago. No blood in emesis. Denies diarrhea. Patient states shes had this abdominal pain before. States she had this pain at previous admission and was told they think its her gallbladder. Today, patient states its not pain, its just tender. Denies nausea or fever. States shes taking medicine for heartburn. Past Med Surg Social Fam HX - Past Medical History Medical history: cancer, CHF, COPD, coronary artery disease, diabetes, hyperlipidemia, hypertension, migraine, peripheral artery disease Additional medical history: ulnar neuropathy, LUE, peripheral vascular disease, lumbar facet arthropathy, disorder of scrum, multiple cerebral infarctions, Psychiatric history: anxiety, bipolar, depression, panic disorder - Past Surgical History Surgical History: angioplasty/stent, carotid endarterectomy, other, vascular surgery, LE stent (s), LE vascular intervention Additional surgical history: BILAT CEA, LLE STENTS PLACED, RLE STENTS PLACED. - Social History Smoking Status: Current every day smoker Smokeless Tobacco Status: No Alcohol use: rarely Drug use: none - Family History Father Family Member Ethnicity: Non- Living Status: Hx Family Cardiac Disorders: Yes (CHF) Mother Family Member Ethnicity: Non- Living Status: Hx Family Cardiac Disorders: Yes (CHF) Hx Family Neurologic Disorders: Yes Medications and Allergies RX: Budesonide/Formoterol 160/4.5 [Symbicort 160/4.5] 2 puff IH BIDR 12/14/18 [History] RX: Cilostazol [Pletal] 100 mg PO BID 12/14/18 [History] RX: Cyclobenzaprine [Flexeril] 10 mg PO DAILY PRN 12/14/18 [History] RX: HYDROcodone/Acet 7.5/325 mg [Mallory 7.5-325 mg] 1 tab PO Q6H PRN 12/14/18 [History] RX: Zolpidem [Ambien] 10 mg PO HS 12/14/18 [History] RX: clonazePAM [Clonazepam] 1 mg PO QID PRN 12/14/18 [History] RX: metFORMIN [Glucophage] 500 mg PO HS 12/14/18 [History] RX: risperiDONE [Risperidone] 1 mg PO HS 12/14/18 [History] RX: Citalopram [CeleXA] 40 mg PO DAILY 12/15/18 [History] RX: Clopidogrel [Plavix] 75 mg PO DAILY 12/15/18 [History] RX: Doxepin [Sinequan] 75 mg PO HS 12/15/18 [History] RX: Simvastatin [Zocor] 40 mg PO HS 12/15/18 [History] RX: lamoTRIgine [Lamictal Xr] 100 mg PO DAILY 12/15/18 [History] Aspirin [Lo-Dose Aspirin EC] 81 mg PO DAILY 01/05/19 [History] Lipase/Protease/Amylase [Creon Dr 3,000 Units Capsule] 8 each PO TIDWM 01/07/19 [History] Allergy/AdvReac Type Severity Reaction Status Date / Time Penicillins Allergy Hives Verified 01/05/19 13:25 Review of Systems All systems PM: The remainder of the systems were reviewed and are negative - Constitutional no chills, no night sweats - EENT Nose, mouth and throat: no abnormal hearing, no dysphagia - Cardiovascular no chest pain, no diaphoresis - Respiratory no cough, no chest congestion - Gastrointestinal abdominal pain, no diarrhea - Genitourinary Genitourinary: no difficulty urinating, no dysuria - Musculoskeletal no abnormal gait, no joint swelling - Integumentary no rash, no sores - Neurological no focal weakness, no tremor(s) - Endocrine no cold intolerance, no palpitations - Hematologic/Lymphatic no easy bleeding, no lymphadenopathy - Allergic/Immunologic no itchy eyes, no wheezing General Surgery Exam Initial Vital Signs Temp Pulse Resp BP Pulse Ox 98.3 F 136 22 139/93 94 01/06/19 15:59 01/06/19 15:59 01/06/19 15:59 01/06/19 15:59 01/06/19 15:59 - Additional Findings VITAL SIGNS: Reviewed. See [facility] GENERAL: In no apparent distress. HEENT: Normocephalic, atraumatic, pupils are equal and reactive, extraocular motions intact, oral mucosa is pink and dry. CHEST/RESPIRATORY: The thorax is free from signs of trauma. Lung sounds: clear to auscultation, normal respiratory effort CARDIAC: Irregular rate and rhythm. Normal S1 and S2, without murmurs, gallops, or rubs. VASCULAR: No Edema. ABDOMEN: soft, nondistended, tenderness at RUQ, bowel sounds present MUSCULOSKELETAL: Good range of motion of all major joints. Extremities without clubbing, cyanosis or edema. NEUROLOGIC EXAM: Alert and oriented x 3. Speech normal. Follows commands. PSYCHIATRIC: Mood normal. SKIN: No rash or lesions. Exam Initial Vital Signs Temp Pulse Resp BP Pulse Ox 98.3 F 136 22 139/93 94 01/06/19 15:59 01/06/19 15:59 01/06/19 15:59 01/06/19 15:59 01/06/19 15:59 Results - Labs 01/10/19 04:10 01/10/19 04:10 Abnormal lab results RBC 3.62 M/mcL (3.82-4.97) L 01/10/19 04:10 Hgb 11.4 g/dL (11.5-15.4) L 01/10/19 04:10 Hct 33.2 % (35.3-44.9) L 01/10/19 04:10 MPV 9.1 fL (9.4-12.4) L 01/10/19 04:10 Lymphocytes # 0.4 K/mcL (0.6-4.6) L 01/10/19 04:10 APTT 60.1 Seconds (26.0-36.0) H 01/06/19 16:27 D-Dimer 1354 ng/mLFEU (0-500) H 01/07/19 19:29 Sodium 132 mEq/L (136-145) L 01/10/19 04:10 Potassium 3.3 mEq/L (3.5-5.1) L 01/10/19 04:10 Chloride 96 mEq/L (98-107) L 01/10/19 04:10 Carbon Dioxide 31 mEq/L (23-29) H 01/10/19 04:10 BUN 30 mg/dL (8-23) H 01/10/19 04:10 BUN/Creatinine Ratio 38 (6-26) H 01/10/19 04:10 Glucose 207 mg/dL (70-105) H 01/10/19 04:10 POC Glucose 244 mg/dL (70-99) H 01/09/19 20:38 Venous Ioniz Calcium 1.12 mmol/L (1.15-1.35) L 01/09/19 06:02 AST 8 Units/L (13-39) L 01/10/19 04:10 B-Natriuretic Peptide 452 pg/mL (Less than 100) H 01/06/19 16:27 Serum Total Protein 5.6 g/dL (6.4-8.9) L 01/10/19 04:10 Albumin 3.3 g/dL (3.5-5.7) L 01/10/19 04:10 Globulin 2.3 g/dL (2.4-3.5) L 01/10/19 04:10 Diabetes panel 01/10/19 Range/Units 04:10 Sodium 132 L (136-145) mEq/L Potassium 3.3 L (3.5-5.1) mEq/L Chloride 96 L (98-107) mEq/L Carbon Dioxide 31 H (23-29) mEq/L BUN 30 H (8-23) mg/dL Creatinine 0.80 (0.60-1.20) mg/dL Glucose 207 H (70-105) mg/dL Calcium 9.3 (8.6-10.3) mg/dL AST 8 L (13-39) Units/L ALT 7 (7-52) Units/L Alkaline Phosphatase 39 (34-104) Units/L Albumin 3.3 L (3.5-5.7) g/dL Calcium panel 01/10/19 Range/Units 04:10 Calcium 9.3 (8.6-10.3) mg/dL Albumin 3.3 L (3.5-5.7) g/dL Pituitary panel 01/10/19 Range/Units 04:10 Sodium 132 L (136-145) mEq/L Potassium 3.3 L (3.5-5.1) mEq/L Chloride 96 L (98-107) mEq/L Carbon Dioxide 31 H (23-29) mEq/L BUN 30 H (8-23) mg/dL Creatinine 0.80 (0.60-1.20) mg/dL Glucose 207 H (70-105) mg/dL Calcium 9.3 (8.6-10.3) mg/dL Adrenal panel 01/10/19 Range/Units 04:10 Sodium 132 L (136-145) mEq/L Potassium 3.3 L (3.5-5.1) mEq/L Chloride 96 L (98-107) mEq/L Carbon Dioxide 31 H (23-29) mEq/L BUN 30 H (8-23) mg/dL Creatinine 0.80 (0.60-1.20) mg/dL Glucose 207 H (70-105) mg/dL Calcium 9.3 (8.6-10.3) mg/dL Total Bilirubin 0.4 (0.3-1.0) mg/dL AST 8 L (13-39) Units/L ALT 7 (7-52) Units/L Alkaline Phosphatase 39 (34-104) Units/L Albumin 3.3 L (3.5-5.7) g/dL All other labs normal. Consult Discharge Plan - Plan Referrals: Maisha Ruth, [employer]CRA[employer] APPRENTICE [Primary Care Provider] - <Lisa Jackson - Last Filed: 01/10/19 15:50> Date of Encounter: 01/10/19 Time of Encounter: 13:52 Assessment and Plan (1) Symptomatic cholelithiasis Current Visit: Yes Status: Chronic discussed with patient that I have reviewed her labs, CT/US, and her exam findings. I cannot say that her currently clinical picture is solely due to her gallbladder but clearly she has continued issues with pain. Recommend percutaneous cholecystostomy tube placement and have discussed with IR. Will need to hold heparin gtt for 3 hrs prior to placement. bile cultures ordered when on diet recommend diabetic low fat diet lft's wnl, lipase normal today serial abdominal exams will follow along (2) Squamous cell carcinoma of lung, stage IV Current Visit: Yes Status: Acute Qualifiers: Laterality: unspecified laterality Qualified Code(s): C34.90 - Malignant neoplasm of unspecified part of unspecified bronchus or lung (3) Pulmonary embolism Current Visit: Yes Status: Acute heparin gtt pulmonary toilet Qualifiers: Pulmonary embolism type: other Chronicity: acute Acute cor pulmonale presence: without acute cor pulmonale Qualified Code(s): I26.99 - Other pulmonary embolism without acute cor pulmonale (4) Diabetes mellitus type 2 with complications Current Visit: No Status: Chronic Qualifiers: Diabetes mellitus fci insulin use: without bed bug exterminator use Qualified Code(s): E11.8 - Type 2 diabetes mellitus with unspecified complications History of Present Illness Consult date: 01/10/19 Reason for consult: gallstones History of present illness: Patient is 63 yo female with complex medical history who presents with continued upper abdominal pain. She has been having this pain for weeks-months and was recently in hospital with similar pain. Her pain in epigastric/ruq dull and sometimes sharp. Pain radiates to her back. Denies nausea or emesis now but has had N/V previously with the pain. She denies diarrhea. Her pain is not improving. She has issues with GERD and takes tums in addition to a ppi. She was diagnosed with a PE yesterday and is on heparin gtt. lft's wnl. Past Med Surg Social Fam HX - Past Medical History Source: patient, old records reviewed Medical history: other (PE) Review of Systems All systems PM: reviewed and no additional remarkable complaints except as stated All systems PM: The remainder of the systems were reviewed and are negative General Surgery Exam Initial Vital Signs Temp Pulse Resp BP Pulse Ox 98.3 F 136 22 139/93 94 01/06/19 15:59 01/06/19 15:59 01/06/19 15:59 01/06/19 15:59 01/06/19 15:59 - General physical appearance well developed, well nourished, no distress - Eyes PERRL - ENT normal mucosa, normocephalic - Neck trachea midline - Respiratory normal expansion, clear to auscultation - Cardiovascular Cardiovascular exam: Present: tachycardia, no murmurs/rubs/gallops - Abdomen Abdomen general surgery: Present: bowel sounds present, soft, tender. Absent: distended, guarding, rebound Abdominal Tenderness: Present: RUQ - Integumentary Integumentary general surgery: Present: warm and dry, no abnormal pigmentation - Neurologic Present: CN 2-12 grossly intact - Musculoskeletal Present: normal posture - Psychiatric Psychiatric general surgery: Present: A&Ox3, speech is normal Exam Initial Vital Signs Temp Pulse Resp BP Pulse Ox 98.3 F 136 22 139/93 94 01/06/19 15:59 01/06/19 15:59 01/06/19 15:59 01/06/19 15:59 01/06/19 15:59 Results - Labs 01/10/19 04:10 01/10/19 04:10 Short CBC 01/10/19 Range/Units 04:10 WBC 8.5 D (4.3-11.1) K/mcL Hgb 11.4 L (11.5-15.4) g/dL Hct 33.2 L (35.3-44.9) % Plt Count 327 (140-400) K/mcL Neutrophils # 7.7 (1.6-8.9) K/mcL BMP 01/10/19 Range/Units 04:10 Sodium 132 L (136-145) mEq/L Potassium 3.3 L (3.5-5.1) mEq/L Chloride 96 L (98-107) mEq/L Carbon Dioxide 31 H (23-29) mEq/L BUN 30 H (8-23) mg/dL Creatinine 0.80 (0.60-1.20) mg/dL Glucose 207 H (70-105) mg/dL Calcium 9.3 (8.6-10.3) mg/dL Liver Function 01/10/19 Range/Units 04:10 Total Bilirubin 0.4 (0.3-1.0) mg/dL Direct Bilirubin 0.0 (0.0-0.2) mg/dL AST 8 L (13-39) Units/L ALT 7 (7-52) Units/L Alkaline Phosphatase 39 (34-104) Units/L Albumin 3.3 L (3.5-5.7) g/dL Vital Signs Temp Pulse Resp BP Pulse Ox 01/10/19 13:00 115 20 98/67 94 01/10/19 12:24 98.0 F 01/10/19 12:00 116 20 96/66 95 01/10/19 11:00 115 20 112/77 95 01/10/19 10:00 118 20 94/58 94 01/10/19 09:08 120 19 88/61 95 01/10/19 08:40 97.9 F 01/10/19 08:15 120 20 101/76 93 01/10/19 07:27 18 92/68 93 01/10/19 07:20 116 01/10/19 07:15 115 20 88/61 94 01/10/19 06:00 112 16 82/68 95 01/10/19 05:00 111 12 95/73 96 01/10/19 04:00 98.3 F 110 16 67/48 92 01/10/19 03:21 15 91 01/10/19 03:10 108 14 75/49 92 01/10/19 02:00 108 14 77/59 94 01/10/19 01:00 110 12 80/62 94 01/10/19 00:00 97.8 F 108 14 86/58 94 01/09/19 23:23 15 94 01/09/19 23:00 106 14 88/65 94 01/09/19 22:00 108 14 74/52 94 01/09/19 21:05 112 16 109/74 93 01/09/19 20:00 97.6 F 112 14 94/59 93 01/09/19 19:43 14 92 01/09/19 19:00 113 14 87/51 93 01/09/19 18:21 120 12 96/69 92 01/09/19 17:34 113 12 101/71 94 01/09/19 16:30 114 11 92/58 01/09/19 15:51 16 101/71 92 01/09/19 15:35 98.1 F 117 12 103/69 91 01/09/19 15:00 115 13 112/87 91 01/09/19 14:00 122 14 81/61 94 Intake and Output 02/16/19 02/17/19 02/17/19 23:59 07:59 15:59 Intake Total 420 / 420 595 / 595 210 / 210 Output Total 550 / 550 Balance -130 / -130 595 / 595 210 / 210 Intake: IV Fluids 120 / 120 355 / 355 210 / 210 Phenylephrine 50 MG In Dextrose 255 / 255 5% 250 ML @ 80 MCG/MIN 24.48 mls/hr IVC CONT [facility] Rx#: [id number] Maxipime 1,000 MG In Water for inj. (sterile) 10 ML @ 300 mls/ hr IVP Q8HR [facility] Rx#:[id number] Levaquin Premix 500mg/100mL 500 100 / 100 mg In 100 ml @ 100 mls/hr IVPB DAILY [facility] Rx#:[id number] Flagyl Premix 500 MG/100 ML 500 100 / 100 100 / 100 100 / 100 mg In 100 ml @ 100 mls/hr IVPB Q8HR [facility] Rx#:[id number] Oral 300 / 300 240 / 240 Output: Urine 550 / 550 Other: Weight 80.7 kg Blood Glucose* 244 234 Patient Weight 01/10/19 23:59 Weight 80.7 kg - Imaging CT scan - abdomen: report reviewed, image reviewed CT scan - pelvis: report reviewed, image reviewed - Attending Attestation I examined this patient and my medical decision-making was reviewed with the Resident Physician. I agree with the documented findings, disposition and treatment plan as described except to the extent set forth below.
[2019-01-10] MEDS ORDERED: *HR* Heparin 5,000 UNIT/ML VIAL IVP PRN ×2 (13:00)
[2019-01-10] MEDS ORDERED: *HR* Heparin 5,000 UNIT/ML VIAL IVP ONE (13:00)
[2019-01-10 13:42] LABS: Heparin anti-factor XA UFH 0.59 IU/mL (0.30-0.70); INR 1.1; Prothrombin Time 12.3 Seconds (9.4-12.1)
[2019-01-10] MEDS: Heparin 25,000 UNIT/500 ML D5W 25,000 UNIT/500 ML BAG IVC SCH (14:33)
[2019-01-10] MEDS: OXYCODONE Oral CONC 10 MG/0.5 ML ORAL.SYG SL PRN (17:43)
[2019-01-10] MEDS: Ketorolac 30 MG/ML VIAL IVP PRN (18:24)
[2019-01-10] MEDS ORDERED: *HR* Metoprolol 5 MG/5 ML VIAL IVP ONE ×2 (19:57→21:38)
[2019-01-10] MEDS: risperiDONE 1 MG TABLET PO SCH (20:15)
[2019-01-10] MEDS ORDERED: Ondansetron 4 MG/2 ML VIAL IVP ONE (20:23)
[2019-01-10] MEDS: Norepinephrine 4 MG in D5% in Water 250 ML IVC SCH ×2 (21:53→23:42)
[2019-01-10] MEDS: Nitroprusside 50 MG in D5% in Water 250 ML IVC SCH (22:47)
[2019-01-11] MEDS: Ipratropium/Albuterol Neb 3 ML IH SCH ×4 (00:02→07:35)
[2019-01-11] MEDS: clonazePAM 1 MG TABLET PO PRN ×2 (04:00→13:55)
[2019-01-11] MEDS: *HR* Promethazine 25 MG/ML VIAL IVP PRN ×3 (04:01→23:16)
[2019-01-11] MEDS: Ketorolac 30 MG/ML VIAL IVP PRN (04:08)
[2019-01-11 04:17] LABS: Basophils % 0.2 %; Hematocrit 37.9 % (35.3-44.9); Immature Granulocytes % 1.1 % (0-4); Lymphocytes # 0.4 K/mcL (0.6-4.6); Lymphocytes % 3.6 %; Mean Corpuscular HGB Conc 34.3 g/dL (31.6-35.5); Mean Corpuscular Hemoglobin 31.5 pg (28.0-33.3); Mean Corpuscular Volume 91.8 fL (83.0-100.0); Mean Platelet Volume 9.4 fL (9.4-12.4); Monocytes # 0.5 K/mcL (0.0-1.3); Monocytes % 4.7 %; Neutrophils # 8.8 K/mcL (1.6-8.9); Platelet Count 296 K/mcL (140-400); Red Blood Count 4.13 M/mcL (3.82-4.97); Segmented Neutrophils % 90.4 %
[2019-01-11] MEDS ORDERED: Lidocaine -MPF 2% 5 ML VIAL ONE (04:25)
[2019-01-11 04:38] LABS: BUN/Creatinine Ratio 40 (6-26); Blood Urea Nitrogen 31 mg/dL (8-23); Calcium 9.2 mg/dL (8.6-10.3); Carbon Dioxide 30 mEq/L (23-29); Chloride 94 mEq/L (98-107); Glucose 199 mg/dL (70-105); Osmolality,Calculated 288 (280-300); Sodium 133 mEq/L (136-145); eGFR For Non-African Americans > 60 (> 60)
--- NOTE | 2019-01-11 05:05 | Event Note ---
Date of Encounter: 01/11/19 Time of Encounter: 05:03 At approx 730pm last night Dr Andujar asked me to pull CVC back approx 2cm. Pulled CVC back and rechecked position with XR with Dr Gomez supervising and available the entire time. Pt remains tacycardic in 120-130's.
[2019-01-11] MEDS: methylPREDNISolone 125 MG/2 ML VIAL IVP SCH (06:12)
[2019-01-11] MEDS: Pantoprazole 40 MG VIAL IVP SCH ×2 (06:12→17:07)
[2019-01-11] MEDS: Budesonide/Formoterol 160/4.5 1 PUFF INH IH SCH ×2 (07:35→19:33)
[2019-01-11] MEDS: Insulin LISPRO 300 UNITS/3 ML VIAL SQ SCH ×4 (07:51→20:19)
[2019-01-11] MEDS: Cefepime HCl 1,000 MG in Water for inj. (sterile) 20 ML 10 ML IVP SCH ×3 (07:52→23:15)
[2019-01-11] MEDS: MetroNIDAZOLE 500 MG/100 ML 500 MG/100 ML BAG IVPB SCH ×3 (07:52→23:15)
[2019-01-11] MEDS: Aspirin Enteric Coated 81 MG Tablet PO SCH (08:08)
[2019-01-11] MEDS: lamoTRIgine 25 MG TABLET PO SCH ×2 (08:08→20:19)
--- NOTE | 2019-01-11 08:33 | Pulmonology Progress Note ---
<MaiBarrington W - Last Filed: 01/11/19 08:57> Date of Encounter: 01/11/19 Objective PUL Vital signs: Last Vital Signs Temp 98.4 F 01/11/19 08:26 Pulse 130 01/11/19 08:00 Resp 18 01/11/19 08:00 BP 127/92 01/11/19 08:00 Pulse Ox 95 01/11/19 08:00 Results - Laboratory Findings CBC and BMP: 01/11/19 04:00 01/11/19 04:00 PT/INR, D-dimer PT 12.3 Seconds (9.4-12.1) H 01/10/19 11:32 D-Dimer 1354 ng/mLFEU (0-500) H 01/07/19 19:29 Abnormal lab findings: Abnormal lab results Lymphocytes # 0.4 K/mcL (0.6-4.6) L 01/11/19 04:00 PT 12.3 Seconds (9.4-12.1) H 01/10/19 11:32 APTT 60.1 Seconds (26.0-36.0) H 01/06/19 16:27 D-Dimer 1354 ng/mLFEU (0-500) H 01/07/19 19:29 Heparin Anti-Xa, Unfract 1.10 IU/mL (0.30-0.70) H* 01/11/19 03:49 Sodium 133 mEq/L (136-145) L 01/11/19 04:00 Chloride 94 mEq/L (98-107) L 01/11/19 04:00 Carbon Dioxide 30 mEq/L (23-29) H 01/11/19 04:00 BUN 31 mg/dL (8-23) H 01/11/19 04:00 BUN/Creatinine Ratio 40 (6-26) H 01/11/19 04:00 Glucose 199 mg/dL (70-105) H 01/11/19 04:00 POC Glucose 209 mg/dL (70-99) H 01/10/19 20:49 Venous Ioniz Calcium 1.12 mmol/L (1.15-1.35) L 01/09/19 06:02 AST 8 Units/L (13-39) L 01/10/19 04:10 B-Natriuretic Peptide 452 pg/mL (Less than 100) H 01/06/19 16:27 Serum Total Protein 5.6 g/dL (6.4-8.9) L 01/10/19 04:10 Albumin 3.3 g/dL (3.5-5.7) L 01/10/19 04:10 Globulin 2.3 g/dL (2.4-3.5) L 01/10/19 04:10 - Clinical Findings Intake & Output: Intake & Output 01/10/19 01/11/19 01/11/19 23:59 07:59 15:59 Intake Total 512.1 / 512.1 301.8 / 301.8 Output Total 500 / 500 450 / 450 600 / 600 Balance 12.1 / 12.1 -148.2 / -148.2 -600 / -600 Weight 80.2 kg Consult Discharge Plan - Plan Referrals: Maisha Ruth, WHITE SHOE EXAMINER [Primary Care Provider] - - Attending Attestation I examined this patient and my medical decision-making was reviewed with the Resident Physician. I agree with the documented findings, disposition and treatment plan as described except to the extent set forth below. We independently had [id number] contact with the patient Patient seen and examined at bedside Labs, radiology, chart personally reviewed. Management was reviewed during multidisciplinary critical care rounds. 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 Acceptable oxygenation on nasal cannula O2. mild pulmonary vascular congestion start diuresis Cards: Hypotension has resolved in fact patient is now hypertensive and tachycardic upon to start oral antihypertensive and will need cardiology consult for persistent tachycardia CVC. GI: Possible cholecystitis HIDA today and if positive -place Biliary Drain. Appreciate Gen Surgery recs Nutrition: NPO for now Renal: UOP Monitored, Cont to Trend sCr and monitor Electrolytes. ID: Suspected occult sepsis possibly biliary tree on antibiotics cultures negative Heme/Onc: Cont Heparin for PE. Needs at least 3 months anticoagulation f/u with Oncology for Lung CA Endo: Glucose Monitored Integ/MSK: Skin Care per routine ICU Nursing Protocol to prevent ulcers. Lines: All lines examined without evidence of infection : Dispo: I suspect the patient can safely be transferred to stepdown unit for ongoing care CODE: Full <Cele Pugh N - Last Filed: 01/11/19 13:35> Date of Encounter: 01/11/19 Time of Encounter: 08:32 Assessment and Plan (1) Hypotension Current Visit: Yes Status: Acute Uncertain etiology. Patient did have improvement in blood pressure after administration of glucagon 3 mg yesterday afternoon, with systolic blood pressure in the 60s. However, patient's blood pressures were noted to be persistently low throughout the evening and overnight, prompting transfer to ICU, placement of central venous catheter, and initiation of the Levophed for pressor support. Patient heart rate consistently in the 120s and 130s. Patient has not had echocardiogram performed due to persistent tachycardia. The patient was to be switched from Levophed to Elfego-Synephrine; however, blood pressure was noted to be within normal limits after Levophed had been titrated down and stopped. Over the weekend, patient continued to be tachycardic and hypertensive, and she was started on a nitroprusside drip for blood pressure management; however, blood pressure was noted to again drop this morning, with systolic pressure running in the 70s to 90s. - Blood cultures and urinalysis negative for acute infection. Patient has remained afebrile with white blood cell count WNL. Currently on day 4 of cefepime and Flagyl. - Repeat CTA demonstrated small segmental pulmonary embolism in the right upper lung; however, low suspicion for cause of hypotension. - Cardiology consult placed; appreciate recommendations. Qualifiers: Hypotension type: unspecified hypotension type Qualified Code(s): I95.9 - Hypotension, unspecified (2) Tachycardia Current Visit: Yes Status: Acute Unclear etiology. Plan as above. 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 Patient reports that she was supposed to have a chemotherapy port placed tomorrow, with plan to begin treatment next week. - Recommend hold on port placement pending resolution of hypertension and tachycardia. - Consider hematology/oncology inpatient consult for recommendations. Qualifiers: Laterality: unspecified laterality Qualified Code(s): C34.90 - Malignant neoplasm of unspecified part of unspecified bronchus or lung (4) Pericardial effusion Current Visit: Yes Status: Acute CT of the abdomen and pelvis performed yesterday was significant for small pericardial effusion. Echocardiogram performed on 12/15/2018 demonstrated LVEF of 60%. Patient was noted to have normal left ventricle chamber size, wall thickness, and systolic function, as well as mild left ventricular diastolic dysfunction, normal right ventricular structure and function, no significant valvular dysfunction, and no evidence of pulmonary hypertension. Repeat echocardiogram on 01/10/2019 demonstrated LVEF of 60-65%, with normal left ventricle chamber size, wall thickness, and systolic function. Pznoe-xc-nunvilqe pericardial effusion was noted without echocardiographic evidence of tamponade. - Consult placed to inpatient cardiology team; awaiting recommendations for management. (5) Acute exacerbation of chronic obstructive airways disease Current Visit: Yes Status: Acute Patient is currently being treated for acute exacerbation of COPD. On exam this afternoon, she does not have any wheezes present; however, breath sounds are notably decreased bilaterally. Additionally, she has reported intermittent episodes of increased shortness of breath, with slow and progressive onset; however, this seems to have improved after administration of a breathing treatment and home anti-antianxiety medications. - Continue empiric antibiotic therapy with Levaquin. - Continue IV Solu-Medrol 40mg Q 12H. - Scheduled xopenex Q4H. - Albuterol nebs Q2H PRN. - Continue Symbicort 2 puffs twice a day. (6) Biliary colic Current Visit: Yes Status: Acute Long history of biliary colic, with recurrent episodes of nausea, vomiting, and diarrhea. Patient did have a general surgery consult with Dr. Patricia during her last admission. Per his consult note on 12/15/2018, patient may be appropriate candidate for laparoscopic cholecystectomy; however, she has multiple comorbidities, including newly diagnosed lung cancer, that would need to be assessed and managed first. Surgery consult was placed on 01/07/2019; however, patient has not been evaluated by surgery during this admission. CT of the abdomen and pelvis performed in the ED was significant for cholelithiasis and some pericholecystic fluid suggesting acute cholecystitis; however, gallbladder or ultrasound negative for signs of acute cholecystitis. Additionally, patient has remained afebrile with normal white count throughout this admission. For the weekend, patient was evaluated by surgery team, with recommendations for percutaneous cholecystostomy tube placement by interventional radiology team. Patient was evaluated by IR team this morning, who recommended HIDA scan prior to invasive therapies. - Awaiting results of HIDA scan; anticipate further management plan pending results. (7) Anxiety Current Visit: Yes Status: Acute Patient has a history of anxiety, which is controlled at home with Klonopin 1mg QID PRN. Review of her MAR reveals that she has not been getting this medication to date during this admission. This medication was restarted this morning, and patient reported rapid improvement in subjective dyspnea. - Continue klonopin 1mg Q6H PRN. - Restart celexa 40mg beginning tomorrow. Subjective Principal diagnosis: Hypotension Interval history: Ms. 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 She presented to the ED last night due to worsening abdominal pain, which was associated with increased shortness of breath. Patient has been evaluated for biliary colic in the past, and was reportedly planning to undergo cholecystectomy during a prior hospitalization; however, she developed respiratory distress requiring intubation and was unable to proceed with operative management. Patient does report some increased wheezing, but denies any sputum production, chest congestion, or productive cough. CT of the abdomen and pelvis performed on 01/06/2019 was significant for cholelithiasis with presence of some pericholecystic fluid suggesting acute cholecystitis, pulmonary nodules at the lung bases, new right pleural effusion, and small pericardial effusion. Gallbladder ultrasound was significant for presence of gallstones and gallbladder sludge, without any other findings to suggest acute cholecystitis. Patient was admitted to the hospital for management of biliary colic and acute exacerbation of COPD. Pulmonology service was consulted this yesterday due to asymptomatic hypertension and tachycardia. Review of vital sign shows morning blood pressure is near 130s systolic; however, patient was noted to have a significantly decreased systolic pressure of 66 just after noon today. Patient has been persistently tachycardic, with heart rate between 110-136 bpm. Review of an ache R shows that patient received 2.5 mg of metoprolol at 01:52, with a second dose administered at 07:56. Patient has remained alert and oriented, and denies any complaints or concerns related to her blood pressure or heart rate. She denies any lower extremity swelling, palpitations, increased work of breathing, or history of DVT/PE. Patient has received 31 L fluid boluses, with mild improvement in blood pressure, from 66/55 at 12:05 to 75/56 at 15:07. Patient was noted to have persistent hypotension, and was ultimately transferred to the ICU on 01/08/2019. A central venous catheter was placed, and she was started on pressor support with Levophed. Patient was weaned off pressor support over the weekend, and was noted to be hypertensive this morning. She did receive 25 mg doses of metoprolol last night, with the last dose being given at approximately midnight. Patient was noted to have a decrease in her blood pressure, with systolic in the 70s to 90s later in the morning. She continues to deny any symptoms related to her blood pressure fluctuations. She reports c ontinued epigastric pain associated with biliary colic. She denies any other acute complaints or concerns at this time. Objective PUL Vital signs: Last Vital Signs Temp 98.4 F 01/11/19 08:26 Pulse 130 01/11/19 08:00 Resp 18 01/11/19 08:00 BP 127/92 01/11/19 08:00 Pulse Ox 95 01/11/19 08:00 General appearance: no acute distress, alert Eyes: nonicteric ENT: oropharynx moist Auscultation: bilateral: diminished breath sounds Cardiovascular: regular rate and rhythm Gastrointestinal: normoactive bowel sounds, soft, tender, guarding Integumentary: normal Extremities: no cyanosis, no edema, no clubbing Musculoskeletal: no deformities normal mental status, non-focal exam Results - Laboratory Findings CBC and BMP: 01/11/19 04:00 01/11/19 04:00 PT/INR, D-dimer PT 12.3 Seconds (9.4-12.1) H 01/10/19 11:32 D-Dimer 1354 ng/mLFEU (0-500) H 01/07/19 19:29 Abnormal lab findings: Abnormal lab results Lymphocytes # 0.4 K/mcL (0.6-4.6) L 01/11/19 04:00 PT 12.3 Seconds (9.4-12.1) H 01/10/19 11:32 APTT 60.1 Seconds (26.0-36.0) H 01/06/19 16:27 D-Dimer 1354 ng/mLFEU (0-500) H 01/07/19 19:29 Heparin Anti-Xa, Unfract 1.10 IU/mL (0.30-0.70) H* 01/11/19 03:49 Sodium 133 mEq/L (136-145) L 01/11/19 04:00 Chloride 94 mEq/L (98-107) L 01/11/19 04:00 Carbon Dioxide 30 mEq/L (23-29) H 01/11/19 04:00 BUN 31 mg/dL (8-23) H 01/11/19 04:00 BUN/Creatinine Ratio 40 (6-26) H 01/11/19 04:00 Glucose 199 mg/dL (70-105) H 01/11/19 04:00 POC Glucose 209 mg/dL (70-99) H 01/10/19 20:49 Venous Ioniz Calcium 1.12 mmol/L (1.15-1.35) L 01/09/19 06:02 AST 8 Units/L (13-39) L 01/10/19 04:10 B-Natriuretic Peptide 452 pg/mL (Less than 100) H 01/06/19 16:27 Serum Total Protein 5.6 g/dL (6.4-8.9) L 01/10/19 04:10 Albumin 3.3 g/dL (3.5-5.7) L 01/10/19 04:10 Globulin 2.3 g/dL (2.4-3.5) L 01/10/19 04:10 - Clinical Findings Intake & Output: Intake & Output 01/10/19 01/11/19 01/11/19 23:59 07:59 15:59 Intake Total 512.1 / 512.1 301.8 / 301.8 Output Total 500 / 500 450 / 450 600 / 600 Balance 12.1 / 12.1 -148.2 / -148.2 -600 / -600 Weight 80.2 kg
--- NOTE | 2019-01-11 08:56 | General Surgery Progress Note ---
<KameronAgnes Anthony - Last Filed: 01/11/19 08:52> Date of Encounter: 01/11/19 Time of Encounter: 08:53 - Assessment and Plan (1) Symptomatic cholelithiasis Current Visit: Yes Status: Acute Previous recommendations (noted below) remain Dr. Ruvalcaba discussed with patient that and has reviewed her labs, CT/US, and her exam findings. Cannot say that her currently clinical picture is solely due to her gallbladder but clearly she has continued issues with pain. Recommend percutaneous cholecystostomy tube placement and have discussed with IR. Will need to hold heparin gtt for 3 hrs prior to placement. bile cultures ordered when on diet recommend diabetic low fat diet lft's wnl, lipase normal today serial abdominal exams will follow along (2) Tachycardia Current Visit: Yes Status: Acute management per primary team (3) Pulmonary embolism Current Visit: Yes Status: Acute per primary hold hep gtt 3 hours prior to IR Qualifiers: Pulmonary embolism type: other Chronicity: acute Acute cor pulmonale presence: without acute cor pulmonale Qualified Code(s): I26.99 - Other pulmonary embolism without acute cor pulmonale (4) Lung cancer Current Visit: No Status: Acute Qualifiers: Laterality: right Lung location: upper lobe of lung Qualified Code(s): C34.11 - Malignant neoplasm of upper lobe, right bronchus or lung Subjective Patient reports: no new complaints, still having pain, voiding w/o difficulty, flatus, no bowel movement, nausea, shortness of breath, afebrile, other ("racing heartbeat") Narrative: Of note, per chart review surgery consult placed 01/07 and surgery had not evaluated patient. Unfortunately, on the no call had been placed to surgery and surgery was therefore unaware of the need for a consult. New consult or (with appropriate telephone call) placed and patient evaluated on 01/10 and noted need for IR percutaneous cholecystostomy tube placement. Dr. Jackson previously discussed with interventional radiology the need for this intervent ion and recommended holding heparin for 3 hours prior to placement. Vital cultures have been ordered. Objective Vital Signs - Last 8 Hours Temp Pulse Resp BP Pulse Ox 01/11/19 08:26 98.4 F 01/11/19 08:00 130 18 127/92 95 01/11/19 07:39 123 01/11/19 07:37 18 93 01/11/19 07:00 128 18 153/113 95 01/11/19 06:00 129 16 123/81 93 01/11/19 05:30 129 158/110 01/11/19 05:00 129 16 132/88 91 01/11/19 04:13 123 01/11/19 04:00 98.8 F 128 16 143/115 94 01/11/19 03:22 16 93 01/11/19 03:00 125 16 150/111 92 01/11/19 02:00 122 16 131/82 91 01/11/19 01:30 124 145/105 01/11/19 01:00 123 16 139/100 95 Intake and Output 01/10/19 01/11/19 01/11/19 23:59 07:59 15:59 Intake Total 512.1 / 512.1 301.8 / 301.8 Output Total 500 / 500 450 / 450 600 / 600 Balance 12.1 / 12.1 -148.2 / -148.2 -600 / -600 Intake: IV Fluids 512.1 / 512.1 301.8 / 301.8 ALBURX 5% 12.5 gm In 250 ml @ 250 / 250 60 mls/hr IVC .Q4H10M [facility] Rx#: [id number] Heparin 25,000 UNIT/500 ML D5W 136 / 136 128 / 128 25,000 unit In 500 ml @ 14 UNIT /KG/HR 22.596 mls/hr IVC . Q22H8M [facility] Rx#:[id number] Nitroprusside 50 MG In Dextrose 6.1 / 6.1 73.8 / 73.8 5% 250 ML @ 0.25 MCG/KG/MIN 6. 05 mls/hr IVC CONT [facility] Rx#: [id number] Maxipime 1,000 MG In Water for 20 / 20 inj. (sterile) 10 ML @ 300 mls/ hr IVP Q8HR [facility] Rx#:[id number] Flagyl Premix 500 MG/100 ML 500 100 / 100 100 / 100 mg In 100 ml @ 100 mls/hr IVPB Q8HR [facility] Rx#:[id number] Output: Urine 450 / 450 600 / 600 Catheter 500 / 500 Other: Weight 80.2 kg Blood Glucose* 209 189 Patient Weight 01/11/19 23:59 Weight 80.2 kg - General physical appearance no distress, moderate pain, other (Plethoric) - Eyes normal ocular movement - ENT dry mucosa - Neck Neck exam: trachea midline - Respiratory other (Decreased course) - Cardiovascular Cardiovascular exam: Present: tachycardia - Abdomen Abdomen: Present: bowel sounds present, soft, tender Abdominal Tenderness: epigastic, RUQ - Integumentary no rash - Neurologic normal sensation - Musculoskeletal normal posture - Psychiatric oriented to time, oriented to person, oriented to place, speech is normal, memory intact - Labs 01/11/19 04:00 01/11/19 04:00 Diabetes panel 01/10/19 01/11/19 Range/Units 04:10 04:00 Sodium 132 L 133 L (136-145) mEq/L Potassium 3.3 L 4.0 (3.5-5.1) mEq/L Chloride 96 L 94 L (98-107) mEq/L Carbon Dioxide 31 H 30 H (23-29) mEq/L BUN 30 H 31 H (8-23) mg/dL Creatinine 0.80 0.77 (0.60-1.20) mg/dL Glucose 207 H 199 H (70-105) mg/dL Calcium 9.3 9.2 (8.6-10.3) mg/dL AST 8 L (13-39) Units/L ALT 7 (7-52) Units/L Alkaline Phosphatase 39 (34-104) Units/L Albumin 3.3 L (3.5-5.7) g/dL Calcium panel 01/10/19 01/11/19 Range/Units 04:10 04:00 Calcium 9.3 9.2 (8.6-10.3) mg/dL Albumin 3.3 L (3.5-5.7) g/dL Pituitary panel 01/10/19 01/11/19 Range/Units 04:10 04:00 Sodium 132 L 133 L (136-145) mEq/L Potassium 3.3 L 4.0 (3.5-5.1) mEq/L Chloride 96 L 94 L (98-107) mEq/L Carbon Dioxide 31 H 30 H (23-29) mEq/L BUN 30 H 31 H (8-23) mg/dL Creatinine 0.80 0.77 (0.60-1.20) mg/dL Glucose 207 H 199 H (70-105) mg/dL Calcium 9.3 9.2 (8.6-10.3) mg/dL Adrenal panel 01/10/19 01/11/19 Range/Units 04:10 04:00 Sodium 132 L 133 L (136-145) mEq/L Potassium 3.3 L 4.0 (3.5-5.1) mEq/L Chloride 96 L 94 L (98-107) mEq/L Carbon Dioxide 31 H 30 H (23-29) mEq/L BUN 30 H 31 H (8-23) mg/dL Creatinine 0.80 0.77 (0.60-1.20) mg/dL Glucose 207 H 199 H (70-105) mg/dL Calcium 9.3 9.2 (8.6-10.3) mg/dL Total Bilirubin 0.4 (0.3-1.0) mg/dL AST 8 L (13-39) Units/L ALT 7 (7-52) Units/L Alkaline Phosphatase 39 (34-104) Units/L Albumin 3.3 L (3.5-5.7) g/dL Consult Discharge Plan - Plan Referrals: Maisha Ruth, SENIOR INFORMATION SECURITY ENGINEER [Primary Care Provider] - <Lisa Jackson - Last Filed: 01/12/19 08:10> Date of Encounter: 01/11/19 - Assessment and Plan (1) Symptomatic cholelithiasis Current Visit: Yes Status: Acute discussed with IR yesterday (friday) that patient needs PCT drain for relief from her gallbladder do not recommend further studies given how sick she is, she clearly needs the drain continue antibiotics cultures ordered for when drain is placed will need heparin gtt held for procedure (2) Squamous cell carcinoma of lung, stage IV Current Visit: Yes Status: Acute Qualifiers: Laterality: unspecified laterality Qualified Code(s): C34.90 - Malignant neoplasm of unspecified part of unspecified bronchus or lung (3) Pulmonary embolism Current Visit: Yes Status: Acute Qualifiers: Pulmonary embolism type: other Chronicity: acute Acute cor pulmonale presence: without acute cor pulmonale Qualified Code(s): I26.99 - Other p ulmonary embolism without acute cor pulmonale (4) Diabetes mellitus type 2 with complications Current Visit: No Status: Chronic Qualifiers: Diabetes mellitus intermediate insulin use: without intermediate use Qualified Code(s): E11.8 - Type 2 diabetes mellitus with unspecified complications Subjective Patient reports: no new complaints, still having pain, flatus, no bowel movement Objective Vital Signs - Last 8 Hours Temp Pulse Resp BP Pulse Ox 01/12/19 07:49 16 92 01/12/19 06:00 123 14 127/102 94 01/12/19 05:00 120 10 139/99 95 01/12/19 04:00 97 F L 120 12 139/100 93 01/12/19 03:42 15 93 01/12/19 03:00 125 14 144/97 94 01/12/19 01:00 125 14 135/103 95 01/12/19 00:19 97.9 F 01/12/19 00:00 97.9 F 130 16 146/84 94 Intake and Output 01/11/19 01/11/19 01/12/19 15:59 23:59 07:59 Intake Total 115.1 / 115.1 219 / 219 236 / 236 Output Total 611 / 611 600 / 600 1000 / 1000 Balance -495.9 / -495.9 -381 / -381 -764 / -764 Intake: IV Fluids 115.1 / 115.1 119 / 119 236 / 236 Heparin 25,000 UNIT/500 ML D5W 0 / 0 236 / 236 25,000 unit In 500 ml @ 14 UNIT /KG/HR 22.596 mls/hr IVC . Q22H8M [facility] Rx#:[id number] Nitroprusside 50 MG In Dextrose 15.1 / 15.1 5% 250 ML @ 0.25 MCG/KG/MIN 6. 05 mls/hr IVC CONT [facility] Rx#: [id number] Levophed 4 MG In Dextrose 5% 250 ML @ Per Protocol IVC CONT [facility] Rx#:[id number] Maxipime 1,000 MG In Water for inj. (sterile) 10 ML @ 300 mls/ hr IVP Q8HR [facility] Rx#:[id number] Flagyl Premix 500 MG/100 ML 500 100 / 100 100 / 100 mg In 100 ml @ 100 mls/hr IVPB Q8HR [facility] Rx#:[id number] Oral 100 / 100 Output: Urine 600 / 600 600 / 600 1000 / 1000 Catheter Other: Weight 80.5 kg Blood Glucose* 99 170 Patient Weight 01/12/19 23:59 Weight 80.5 kg - General physical appearance well developed, no distress, moderate pain - Eyes normal ocular movement - ENT normocephalic - Respiratory other rales: bilateral - Cardiovascular Cardiovascular exam: Present: tachycardia - Abdomen Abdomen: Present: bowel sounds present, soft, tender. Absent: distended, guarding, rebound Abdominal Tenderness: epigastic, RUQ - Integumentary no rash, no growths - Neurologic normal sensation - Musculoskeletal normal posture - Psychiatric oriented to time, oriented to person, oriented to place, speech is normal, memory intact - Labs 01/12/19 05:55 01/12/19 05:55 Diabetes panel 01/12/19 Range/Units 05:55 Sodium 133 L (136-145) mEq/L Potassium 3.4 L (3.5-5.1) mEq/L Chloride 93 L (98-107) mEq/L Carbon Dioxide 34 H (23-29) mEq/L BUN 29 H (8-23) mg/dL Creatinine 0.67 (0.60-1.20) mg/dL Glucose 149 H (70-105) mg/dL Calcium 9.5 (8.6-10.3) mg/dL AST 11 L (13-39) Units/L ALT 9 (7-52) Units/L Alkaline Phosphatase 40 (34-104) Units/L Albumin 3.7 (3.5-5.7) g/dL Calcium panel 01/12/19 Range/Units 05:55 Calcium 9.5 (8.6-10.3) mg/dL Albumin 3.7 (3.5-5.7) g/dL Pituitary panel 01/12/19 Range/Units 05:55 Sodium 133 L (136-145) mEq/L Potassium 3.4 L (3.5-5.1) mEq/L Chloride 93 L (98-107) mEq/L Carbon Dioxide 34 H (23-29) mEq/L BUN 29 H (8-23) mg/dL Creatinine 0.67 (0.60-1.20) mg/dL Glucose 149 H (70-105) mg/dL Calcium 9.5 (8.6-10.3) mg/dL Adrenal panel 01/12/19 Range/Units 05:55 Sodium 133 L (136-145) mEq/L Potassium 3.4 L (3.5-5.1) mEq/L Chloride 93 L (98-107) mEq/L Carbon Dioxide 34 H (23-29) mEq/L BUN 29 H (8-23) mg/dL Creatinine 0.67 (0.60-1.20) mg/dL Glucose 149 H (70-105) mg/dL Calcium 9.5 (8.6-10.3) mg/dL Total Bilirubin 0.5 (0.3-1.0) mg/dL AST 11 L (13-39) Units/L ALT 9 (7-52) Units/L Alkaline Phosphatase 40 (34-104) Units/L Albumin 3.7 (3.5-5.7) g/dL - Attending Attestation I have personally performed a face to face evaluation on this patient. I have reviewed and agree with the care plan. History and Exam by me shows:
[2019-01-11] MEDS: Levalbuterol Neb 1.25 MG/3 ML IH SCH ×4 (11:08→23:38)
--- NOTE | 2019-01-11 11:34 | Cardiology Consult Note ---
<Eulogio Berg - Last Filed: 01/11/19 13:35> Date of Encounter: 01/11/19 Time of Encounter: 11:30 Assessment and Plan Discussion w patient/family: The assessment and plan as outlined above was discussed with the patient and/or family members who expressed understanding and agreement. All questions were answered. Thank you for involving us in the care of your patient. Please call with any questions. History of Present Illness Consult date: 01/11/19 Consult reason: Hypotension, tachycardia History of present illness: Ms. 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 CHF, COPD, CAD, diabetes mellitus, hyperlipidemia, hypertension, peripheral artery disease. Patient has a past surgical history of stent placement, carotid endarterectomy, left lower extremity/right lower extremity stent. Current cardiology consultation due to tachycardia/hypotensive in the setting of PE. Patient with known history of hypotension - likely secondary to adrenal insufficiency due to high-dose steroids. Patient currently hypoxic at 93% on 3 L via nasal cannula Patient tachycardic 113 Patient does not currently meet sepsis criteria Chest x-ray shows right upper lobe collapse with increased density in the right hilum-possibly advanced metastatic disease Right lower lobe shows atelectasis versus pneumonia. Gallbladder ultrasound shows gallbladder sludge without cholecystitis CT abdomen and pelvis shows gallbladder sludge with [id number] for cholecystitis. CT shows possible colonic metastasis CTA shows small subsegmental PE on the right upper lobe branch Small right pleural effusion noted Venous Doppler without DVT or SVT Troponins less than 0.03 3. Echocardiogram shows mild to moderate pericardial effusion without evidence of tamponade-otherwise no acute findings Patient's EKG shows a sinus tachycardia with a left axis deviation at a rate of 120 bpm, QRS duration of 75 ms, QT/QTc interval 339/410 ms respectively. There are no significant ST segment elevations, depressions, pathologic Q waves, there is an abnormal T-wave inversion noted in aVL which appears to be isolated to that lead and similar to prior EKG findings. There are no signs of acute ischemic change. This EKG performed on 09/10/2019 is generally consistent with prior EKGs performed on January 08, January 07, and 2018. Patient was seen and examined at bedside. Upon initial examination patient was lying in ICU hospital bed, she is awake, alert, engaged conversation and answer questions appropriately without conversational dyspnea. She is in no acute distress, nondiaphoretic, non- cyanotic, and there are no focal overt neurological deficits appreciated. Patient admits to ongoing right upper quadrant pain which she attributes to her gallbladder Patient currently denies chest pain, shortness of breath, generalized abdominal pain, nausea, paresthesias, lightheadedness/dizziness. Patient states that she has a long-standing history of hypotension which has b een evaluated previously by her physician without pathological findings. Patient has no other concerns or complaints at this time. > Avoid vasodilators-utilize labetalol for blood pressure and heart rate control > Recommend consideration of neuroendocrine pathology > Random cortisol ordered > Recommend considering ACTH stimulation test > Consider plasma metanephrines > Patient without acute imaging or laboratory findings suggesting a cardiac pathology > Patient is asymptomatic at this time from a cardiac perspective > Cardiology will sign off. Please reconsult as needed. Gallbladder Ultrasound 01/06/19 17:02 IMPRESSION: Gallstone and gallbladder sludge. No findings to suggest acute cholecystitis otherwise. D/ / Rishabh Corado MD / Rishabh Corado MD Interpreting Provider: Rishabh Corado MD Abdomen/Pelvis CT 01/09/19 10:00 IMPRESSION: 1. Please see separate CT chest report for evaluation of intrathoracic findings. Small pericardial effusion. Right pleural effusion. Multiple pulmonary nodules. 2. Cholelithiasis, with probable gallbladder sludge. Small amount of pericholecystic inflammation is also present. Correlation with right upper quadrant pain/right upper quadrant ultrasound is recommended to exclude acute cholecystitis. 3. Mild nonspecific thickening of the distal stomach and duodenum. 4. Focal narrowing of the colon at the hepatic flexure. While this could be secondary to peristalsis, possibility of colonic neoplasm is not excluded. Follow-up colonoscopy may be obtained as clinically warranted. D/ / 01/09/2019 10:54:28 Jaime Gamboa MD / aminata Interpreting Provider: Jaime Gamboa MD Chest CTA 01/09/19 10:00 IMPRESSION: 1. Findings are concerning for small segmental pulmonary embolism within the right upper lung branch. 2. Small pericardial effusion. Interlobular septal thickening, with small right pleural effusion and right lung base pulmonary opacity. Findings could represent early pulmonary interstitial edema. 3. Redemonstration of right upper lung collapse, probably secondary to right upper lobe bronchus obstruction. This may be secondary to compression or invasion from right paramediastinal mass extending into right hilum. Unchanged enlarged 14 mm superior mediastinal lymph node. This appears reasonably similar to previous examination 1 day prior. 4. Redemonstration of multiple pulmonary nodules bilaterally, some of which demonstrate cavitation. 5. Nonspecific thickening of the midthoracic esophagus. 6. Extensive atherosclerotic disease involving origin of the great vessels. The right common carotid artery appears significantly smaller compared to the left. 7. Please also see separate report for CT abdomen and pelvis. Findings were discussed with Dr. Elizondo at 10:53am on 01/09/2019. D/ / 01/09/2019 10:47:51 Jaime Gamboa MD / aminata Interpreting Provider: Jaime Gamboa MD Echocardiogram Limited Views 01/10/19 07:16 Impressions: LVEF 60-65%. Normal LV chamber size, wall thickness and systolic function. Normal right ventricular structure and function. Small to moderate pericardial effusion without echocardiographic evidence of tamponade. Ordering physician notified via [employer]. Left Ventricular Wall Motion: Rest Echo Findings All wall segments showed normal motion. Findings: Study Quality * Technically sub-optimal due to poor echocardiographic windows. ECG Findings * Sinus tachycardia. Left Ventricle * LVEF 60-65%. * Normal LV chamber size, wall thickness and systolic function. Right Ventricle * Normal right ventricular structure and function. Left Atrium * Normal left atrial size. Right Atrium * Normal right atrial size. * A mobile echodense object in RA, foreign object (catheter tip?) or artifact, unable to well characterize by TTE. Pericardium * There is a small to moderate pericardial effusion posterior to LV wall, 0.8-1.3 cm. * There is no echocardiographic evidence of tamponade. * Excessive respiratory variation is absent. IVC * The IVC is dilated. * > 50% respiratory change Tricuspid Valve * Estimated RA pressure is 8 mmHg. Chest X-Ray 01/11/19 05:30 IMPRESSION: Right-sided central line is seen. The tip is slightly higher than prior, likely in the midportion of the SVC There is persistent right upper lobe collapse. Increased density in the right hilar region, possibly due to mass. There is also increased opacity at the right lung base either atelectasis or pneumonia D/ / Taras Valdovinos MD / Taras Valdovinos MD Interpreting Provider: Taras Valdovinos MD Bile Acid Absorption NM 01/11/19 08:15 IMPRESSION: Non-visualization of the gallbladder is compatible with acute cholecystitis/cystic duct obstruction or severe chronic cystic duct narrowing. RECOMMENDATIONS: Correlation with patient's signs and symptoms to differentiate acute from chronic process. D/ / Jared Mancia MD / Jared Mancia MD Interpreting Provider: Jared Mancia MD Past Med Surg Social Fam HX - Past Medical History Medical history: other (PE) Additional medical history: ulnar neuropathy, LUE, peripheral vascular disease, lumbar facet arthropathy, disorder of scrum, multiple cerebral infarctions, Psychiatric history: anxiety, bipolar, depression, panic disorder - Past Surgical History Surgical History: angioplasty/stent, carotid endarterectomy, other, vascular surgery, LE stent (s), LE vascular intervention Additional surgical history: BILAT CEA, LLE STENTS PLACED, RLE STENTS PLACED. - Social History Smoking Status: Current every day smoker Smokeless Tobacco Status: No Alcohol use: rarely Drug use: none - Family History Father Family Member Ethnicity: Non- Living Status: Hx Family Cardiac Disorders: Yes (CHF) Mother Family Member Ethnicity: Non- Living Status: Hx Family Cardiac Disorders: Yes (CHF) Hx Family Neurologic Disorders: Yes Medications and Allergies Budesonide/Formoterol 160/4.5 [Symbicort 160/4.5] 2 puff IH BIDR 12/14/18 [History] Cilostazol [Pletal] 100 mg PO BID 12/14/18 [History] Cyclobenzaprine [Flexeril] 10 mg PO DAILY PRN 12/14/18 [History] HYDROcodone/Acet 7.5/325 mg [[place] 7.5-325 mg] 1 tab PO Q6H PRN 12/14/18 [History] Zolpidem [Ambien] 10 mg PO HS 12/14/18 [History] clonazePAM [Clonazepam] 1 mg PO QID PRN 12/14/18 [History] metFORMIN [Glucophage] 500 mg PO HS 12/14/18 [History] risperiDONE [Risperidone] 1 mg PO HS 12/14/18 [History] Citalopram [CeleXA] 40 mg PO DAILY 12/15/18 [History] Clopidogrel [Plavix] 75 mg PO DAILY 12/15/18 [History] Doxepin [Sinequan] 75 mg PO HS 12/15/18 [History] Simvastatin [Zocor] 40 mg PO HS 12/15/18 [History] lamoTRIgine [Lamictal Xr] 100 mg PO DAILY 12/15/18 [History] Aspirin [Lo-Dose Aspirin EC] 81 mg PO DAILY 01/05/19 [History] Lipase/Protease/Amylase [Creon Dr 3,000 Units Capsule] 8 each PO TIDWM 01/07/19 [History] Allergy/AdvReac Type Severity Reaction Status Date / Time Penicillins Allergy Hives Verified 01/05/19 13:25 All Systems Review: The remainder of the systems were reviewed and are negative Review of Systems: As per history of present illness. All systems reviewed and negative except as stated. Physical Examination Vital Signs, Last 4 Hours Temp Pulse Resp BP Pulse Ox 01/11/19 10:00 113 10 83/44 93 01/11/19 09:00 121 10 92/68 93 01/11/19 08:26 98.4 F 01/11/19 08:00 130 18 127/92 95 01/11/19 07:39 123 01/11/19 07:37 18 93 General: Conversant, No Apparent Distress HEENT: Atraumatic, Normocephaly, Mucus Membranes Moist Neck: No JVD Cardiac: Normal S1 and S2, No Murmur, Other (Patient is tachycardic to 122 bpm with provider in room.) Lungs: Other (There are diminished breath sounds in the right upper lobe, otherwise clear to auscultation bilaterally) Neuro: Alert and responsive, No focal deficits noted Abdomen: Soft, Other (Patient has diffuse tenderness to palpation which she states localizes into the right upper quadrant.) Skin: No rashes noted on visualized skin Musculoskeletal: No Chest Wall Tenderness Extremities: No Clubbing, No Cyanosis, No Edema, Normal Pulses Results 01/11/19 04:00 01/11/19 04:00 Lab Results 01/10/19 01/10/19 01/11/19 04:10 11:32 04:00 WBC 9.7 Hgb 13.0 D Hct 37.9 Plt Count 296 INR 1.1 Sodium Potassium Chloride Carbon Dioxide BUN Creatinine Glucose Calcium Total Bilirubin 0.4 AST 8 L ALT 7 Alkaline Phosphatase 39 Lipase 23 01/11/19 04:00 WBC Hgb Hct Plt Count INR Sodium 133 L Potassium 4.0 Chloride 94 L Carbon Dioxide 30 H BUN 31 H Creatinine 0.77 Glucose 199 H Calcium 9.2 Total Bilirubin AST ALT Alkaline Phosphatase Lipase - Imaging and Cardiology Chest Xray: report reviewed Echo: report reviewed - EKG Interpretation EKG results cardiology: personally reviewed, normal ECG, sinus rhythm, no diagnostic ischemia Consult Discharge Plan - Plan Referrals: Maisha Ruth, CHILD DEVELOPMENT DIRECTOR [Primary Care Provider] - <Mallorie Galaviz - Last Filed: 01/11/19 18:31> Date of Encounter: 01/11/19 - Attending Attestation Patient was seen and evaluated independently by me. Findings, assessment and plan were discussed at length with patient, questions answered. Agree with nurse practitioner's/resident's documentation. Addition as follows, 63 yoCF ho biliary colic, lung Ca, CAD, HTN, CVA s/p B/L CEA with subsequent episodes of asymptomatic hypotension at baseline, PAD, COPD. P/w worsening abd pain, possible cholecystitis due to gall stones PERC tube in plan. Also new segmental RUL PE on heparin drip. Consulted for sinus tachycardia and labile BP with hypertension and hypotension after nipride. No evidence of global hypoperfusion. Cortisol 1.4 TSH 1.6 Exam RR tachy, CTA, diffuse abd tenderness, no LE edema. ECG S tachycardia. TTE EF 60-65%, RV nl, small pericardial effusion w/o echo evidence of tamponade A: Cholelithiasis/suspected cholecystitis/sepsis Labile BP fluctuation Ho hypotension after B/L CEA likely abn of neuro-regulation Suspected adrenal insufficiency Acute RUL segmental PE Lung Ca P: measure BP both arms for consistency avoid direct vasodilators (nipride and hydralazine), can use labetalol iv for SBP>160 or DBP>100 cosyntropin stim test if plasma metanephrine Mallorie Galaviz MD, PhD Assessment and Plan Discussion w patient/family: The assessment and plan as outlined above was discussed with the patient and/or family members who expressed understanding and agreement. All questions were answered. Thank you for involving us in the care of your patient. Please call with any questions. History of Present Illness History of present illness: Ms. Mace is a 63 year old female All Systems Review: The remainder of the systems were reviewed and are negative Physical Examination Vital Signs, Last 4 Hours Temp Pulse Resp BP Pulse Ox 01/11/19 17:00 131 20 125/101 90 01/11/19 16:35 99.2 F 01/11/19 16:00 133 20 145/108 90 01/11/19 15:56 19 92 01/11/19 15:06 117 01/11/19 15:00 131 20 153/112 90 Results 01/11/19 04:00 01/11/19 04:00 Lab Results 01/11/19 01/11/19 04:00 04:00 WBC 9.7 Hgb 13.0 D Hct 37.9 Plt Count 296 Sodium 133 L Potassium 4.0 Chloride 94 L Carbon Dioxide 30 H BUN 31 H Creatinine 0.77 Glucose 199 H Calcium 9.2
[2019-01-11] MEDS: Heparin 25,000 UNIT/500 ML D5W 25,000 UNIT/500 ML BAG IVC SCH (12:26)
[2019-01-11] MEDS: OXYCODONE Oral CONC 10 MG/0.5 ML ORAL.SYG SL PRN (13:56)
[2019-01-11] MEDS: MethylPREDNISolone 40 MG/ML VIAL IVP SCH (17:07)
[2019-01-11] MEDS: risperiDONE 1 MG TABLET PO SCH (20:19)
[2019-01-11] MEDS: Norepinephrine 4 MG in D5% in Water 250 ML IVC SCH (21:16)
[2019-01-12] MEDS: OXYCODONE Oral CONC 10 MG/0.5 ML ORAL.SYG SL PRN ×3 (00:47→15:43)
[2019-01-12] MEDS: Ketorolac 30 MG/ML VIAL IVP PRN (01:39)
[2019-01-12] MEDS: Heparin 25,000 UNIT/500 ML D5W 25,000 UNIT/500 ML BAG IVC SCH (02:44)
[2019-01-12] MEDS: Levalbuterol Neb 1.25 MG/3 ML IH SCH ×6 (03:42→23:33)
[2019-01-12] MEDS: MethylPREDNISolone 40 MG/ML VIAL IVP SCH (06:19)
[2019-01-12] MEDS: Pantoprazole 40 MG VIAL IVP SCH ×2 (06:19→17:51)
[2019-01-12 06:28] LABS: Basophils % 0.1 %; Hematocrit 37.8 % (35.3-44.9); Immature Granulocytes % 1.7 % (0-4); Lymphocytes # 0.7 K/mcL (0.6-4.6); Lymphocytes % 9.7 %; Mean Corpuscular HGB Conc 34.4 g/dL (31.6-35.5); Mean Corpuscular Hemoglobin 31.4 pg (28.0-33.3); Mean Corpuscular Volume 91.3 fL (83.0-100.0); Mean Platelet Volume 9.2 fL (9.4-12.4); Monocytes # 0.7 K/mcL (0.0-1.3); Monocytes % 10.1 %; Neutrophils # 5.7 K/mcL (1.6-8.9); Platelet Count 239 K/mcL (140-400); Red Blood Count 4.14 M/mcL (3.82-4.97); Red Cell Distribution Width 11.9 % (11.5-14.5); Segmented Neutrophils % 78.4 %
[2019-01-12 06:47] LABS: Alanine Aminotransferase 9 Units/L (7-52); Albumin 3.7 g/dL (3.5-5.7); Albumin/Globulin Ratio 1.7 (1.1-2.2); Alkaline Phosphatase 40 Units/L (34-104); Aspartate Amino Transferase 11 Units/L (13-39); BUN/Creatinine Ratio 43 (6-26); Bilirubin,Total 0.5 mg/dL (0.3-1.0); Blood Urea Nitrogen 29 mg/dL (8-23); Calcium 9.5 mg/dL (8.6-10.3); Carbon Dioxide 34 mEq/L (23-29); Chloride 93 mEq/L (98-107); Globulin 2.2 g/dL (2.4-3.5); Glucose 149 mg/dL (70-105); Magnesium 1.8 mg/dL (1.6-2.6); Osmolality,Calculated 285 (280-300); Potassium 3.4 mEq/L (3.5-5.1); Sodium 133 mEq/L (136-145); Total Protein 5.9 g/dL (6.4-8.9); eGFR For Non-African Americans > 60 (> 60)
--- NOTE | 2019-01-12 07:24 | Pulmonology Progress Note ---
<MaiBarrington W - Last Filed: 01/12/19 11:29> Date of Encounter: 01/12/19 Objective PUL Vital signs: Last Vital Signs Temp 97.7 F 01/12/19 07:59 Pulse 117 01/12/19 10:00 Resp 12 01/12/19 11:21 BP 76/57 01/12/19 10:00 Pulse Ox 97 01/12/19 11:21 Results - Laboratory Findings CBC and BMP: 01/12/19 05:55 01/12/19 05:55 PT/INR, D-dimer PT 12.3 Seconds (9.4-12.1) H 01/10/19 11:32 D-Dimer 1354 ng/mLFEU (0-500) H 01/07/19 19:29 Abnormal lab findings: Abnormal lab results MPV 9.2 fL (9.4-12.4) L 01/12/19 05:55 PT 12.3 Seconds (9.4-12.1) H 01/10/19 11:32 APTT 60.1 Seconds (26.0-36.0) H 01/06/19 16:27 D-Dimer 1354 ng/mLFEU (0-500) H 01/07/19 19:29 Sodium 133 mEq/L (136-145) L 01/12/19 05:55 Potassium 3.4 mEq/L (3.5-5.1) L 01/12/19 05:55 Chloride 93 mEq/L (98-107) L 01/12/19 05:55 Carbon Dioxide 34 mEq/L (23-29) H 01/12/19 05:55 BUN 29 mg/dL (8-23) H 01/12/19 05:55 BUN/Creatinine Ratio 43 (6-26) H 01/12/19 05:55 Glucose 149 mg/dL (70-105) H 01/12/19 05:55 POC Glucose 170 mg/dL (70-99) H 01/11/19 19:41 Venous Ioniz Calcium 1.12 mmol/L (1.15-1.35) L 01/09/19 06:02 AST 11 Units/L (13-39) L 01/12/19 05:55 B-Natriuretic Peptide 452 pg/mL (Less than 100) H 01/06/19 16:27 Serum Total Protein 5.9 g/dL (6.4-8.9) L 01/12/19 05:55 Globulin 2.2 g/dL (2.4-3.5) L 01/12/19 05:55 - Clinical Findings Intake & Output: Intake & Output 01/11/19 01/12/19 01/12/19 23:59 07:59 15:59 Intake Total 229 / 229 336 / 336 Output Total 600 / 600 1000 / 1000 Balance -371 / -371 -664 / -664 Weight 80.5 kg Consult Discharge Plan - Plan Referrals: Maisha Ruth, MACHINE MADE SHOE UNIT WORKER [Primary Care Provider] - - Attending Attestation I examined this patient and my medical decision-making was reviewed with the Resident Physician. I agree with the documented findings, disposition and treatment plan as described except to the extent set forth below. We independently had [id number] contact with the patient Patient seen and examined at bedside Labs, radiology, chart personally reviewed. Management was reviewed during multidisciplinary critical care rounds. COMPUTER SUPPORT TECHNICIAN: Awake and alert no focal deficits Pulm: Acceptable oxygenation on nasal cannula O2 Cards: Persistent tachycardia with periods of hypotension ?sepsis ?endocrine (adrenal insuff); appreciate cardiology recommendations GI: Suspected cholecystitis plan for IR biliary drain placement in the next 24- 48 hours appreciate GEN surgery consultation continue antibiotics Nutrition: Nothing by mouth for now Renal: UOP Monitored, Cont to Trend sCr and monitor Electrolytes. ID: Continue treatment for cholecystitis cultures negative Heme/Onc: Continue heparin for sub segmental pulmonary embolus h/h wnl Endo: Glucose Monitored; tsh wnl however very low cortisol level despite using glucocorticoids we will add stress dose hydrocortisone Integ/MSK: Skin Care per routine ICU Nursing Protocol to prevent ulcers. Lines: All lines examined without evidence of infection : Dispo: Monitor in ICU for hemodynamic lability CODE: Full <Cele Pugh N - Last Filed: 01/12/19 12:39> Date of Encounter: 01/12/19 Time of Encounter: 07:24 Assessment and Plan (1) Hypotension Current Visit: Yes Status: Acute Uncertain etiology. Over the weekend, patient continued to be tachycardic and hypertensive, and she was started on a nitroprusside drip for blood pressure management; however, blood pressure was noted to again drop this morning, with systolic pressure running in the 70s to 90s. Overnight, patient was noted to have hypotension, with low pressure of 63/46 per review of charted vital signs; however, BP improved without intervention and remains labile. - Continue close monitoring of blood pressures. - Blood cultures and urinalysis negative for acute infection. Patient has remained afebrile with white blood cell count WNL. Currently on day 5 of cefepime and Flagyl. - Repeat CTA demonstrated small segmental pulmonary embolism in the right upper lung; however, low suspicion for cause of hypotension. Qualifiers: Hypotension type: unspecified hypotension type Qualified Code(s): I95.9 - Hypotension, unspecified (2) Tachycardia Current Visit: Yes Status: Acute Unclear etiology. Plan as above. (3) Biliary colic Current Visit: Yes Status: Acute Long history of biliary colic, with recurrent episodes of nausea, vomiting, and diarrhea. Patient did have a general surgery consult with Dr. Patricia during her last admission. Per his consult note on 12/15/2018, patient may be appropriate candidate for laparoscopic cholecystectomy; however, she has multiple comorbidities, including newly diagnosed lung cancer, that would need to be assessed and managed first. Surgery consult was placed on 01/07/2019; however, patient has not been evaluated by surgery during this admission. CT of the abdomen and pelvis performed in the ED was significant for cholelithiasis and some pericholecystic fluid suggesting acute cholecystitis; however, gallbladder or ultrasound negative for signs of acute cholecystitis. Additionally, patient has remained afebrile with normal white count throughout this admission. For the weekend, patient was evaluated by surgery team, with recommendations for percutaneous cholecystostomy tube placement by interventional radiology team. Patient was evaluated by IR team this morning, who recommended HIDA scan prior to invasive therapies. - HIDA scan consistent with acute cholecystitis. - Tentative plan for cholecystostomy tube placement tomorrow with IR. - Continue antibiotic therapy with cefepime and flagyl. Currently day 5 of therapy. Anticipate d/c antibiotics following definitive management for acute cholecystitis. (4) Acute exacerbation of chronic obstructive airways disease Current Visit: Yes Status: Acute Patient is currently being treated for acute exacerbation of COPD. On exam this afternoon, she does not have any wheezes present; however, breath sounds are notably decreased bilaterally. Additionally, she has reported intermittent episodes of increased shortness of breath, with slow and progressive onset; however, this seems to have improved after administration of a breathing treatment and home anti-antianxiety medications. - Continue IV Solu-Medrol 40mg Q 12H. Due to low cortisol despite high-dose steroid therapy, start hydrocortisone 50mg Q6H. - Scheduled xopenex Q4H. - Albuterol nebs Q2H PRN. - Continue Symbicort 2 puffs twice a day. 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 Patient reports that she was supposed to have a chemotherapy port placed tomorrow, with plan to begin treatment next week. - Recommend hold on port placement pending resolution of hypertension and tachycardia. - Consider hematology/oncology inpatient consult for recommendations. Qualifiers: Laterality: unspecified laterality Qualified Code(s): C34.90 - Malignant neoplasm of unspecified part of unspecified bronchus or lung (6) Anxiety Current Visit: Yes Status: Acute Patient has a history of anxiety, which is controlled at home with Klonopin 1mg QID PRN. Review of her MAR reveals that she has not been getting this medication to date during this admission. This medication was restarted this morning, and patient reported rapid improvement in subjective dyspnea. - Continue klonopin 1mg Q6H PRN. - Restart celexa 40mg beginning tomorrow. Subjective Principal diagnosis: Hypotension Interval history: Ms. 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 She presented to the ED last night due to worsening abdominal pain, which was associated with increased shortness of breath. Patient has been evaluated for biliary colic in the past, and was reportedly planning to undergo cholecystectomy during a prior hospitalization; however, she developed respiratory distress requiring intubation and was unable to proceed with operative management. Patient does report some increased wheezing, but denies any sputum production, chest congestion, or productive cough. CT of the abdomen and pelvis performed on 01/06/2019 was significant for cholelithiasis with presence of some pericholecystic fluid suggesting acute cholecystitis, pulmonary nodules at the lung bases, new right pleural effusion, and small pericardial effusion. Gallbladder ultrasound was significant for presence of gallstones and gallbladder sludge, without any other findings to suggest acute cholecystitis. Patient was admitted to the hospital for management of biliary colic and acute exacerbation of COPD. Pulmonology service was consulted this yesterday due to asymptomatic hypertension and tachycardia. Review of vital sign shows morning blood pressure is near 130s systolic; however, patient was noted to have a significantly decreased systolic pressure of 66 just after noon today. Patient has been persistently tachycardic, with heart rate between 110-136 bpm. Review of an ache R shows that patient received 2.5 mg of metoprolol at 01:52, with a second dose administered at 07:56. Patient has remained alert and oriented, and denies any complaints or concerns related to her blood pressure or heart rate. She denies any lower extremity swelling, palpitations, increased work of breathing, or history of DVT/PE. Patient has received 31 L fluid boluses, with mild improvement in blood pressure, from 66/55 at 12:05 to 75/56 at 15:07. Patient was noted to have persistent hypotension, and was ultimately transferred to the ICU on 01/08/2019. A central venous catheter was placed, and she was started on pressor support with Levophed. Patient was weaned off pressor support over the weekend. Review of overnight vital signs demonstrates repeat hypotension last night, with a low of 63/46; however, blood pressure was noted to be elevated again this morning. Patient reports feeling poor overall, with increased weakness, as well as persistent nausea and epigastric pain. Objective PUL Vital signs: Last Vital Signs Temp 97 F L 01/12/19 04:00 Pulse 123 01/12/19 06:00 Resp 14 01/12/19 06:00 BP 127/102 01/12/19 06:00 Pulse Ox 94 01/12/19 06:00 General appearance: no acute distress, lethargic, appears uncomfortable (due to epigastric pain) Eyes: nonicteric ENT: oropharynx moist Auscultation: bilateral: diminished breath sounds Cardiovascular: regular rate and rhythm (sinus tachycardia) Gastrointestinal: tender, guarding Extremities: no cyanosis, no edema, no clubbing Musculoskeletal: no deformities normal mental status, non-focal exam mood appropriate, affect normal Results - Laboratory Findings CBC and BMP: 01/12/19 05:55 01/12/19 05:55 PT/INR, D-dimer PT 12.3 Seconds (9.4-12.1) H 01/10/19 11:32 D-Dimer 1354 ng/mLFEU (0-500) H 01/07/19 19:29 Abnormal lab findings: Abnormal lab results MPV 9.2 fL (9.4-12.4) L 01/12/19 05:55 PT 12.3 Seconds (9.4-12.1) H 01/10/19 11:32 APTT 60.1 Seconds (26.0-36.0) H 01/06/19 16:27 D-Dimer 1354 ng/mLFEU (0-500) H 01/07/19 19:29 Sodium 133 mEq/L (136-145) L 01/12/19 05:55 Potassium 3.4 mEq/L (3.5-5.1) L 01/12/19 05:55 Chloride 93 mEq/L (98-107) L 01/12/19 05:55 Carbon Dioxide 34 mEq/L (23-29) H 01/12/19 05:55 BUN 29 mg/dL (8-23) H 01/12/19 05:55 BUN/Creatinine Ratio 43 (6-26) H 01/12/19 05:55 Glucose 149 mg/dL (70-105) H 01/12/19 05:55 POC Glucose 170 mg/dL (70-99) H 01/11/19 19:41 Venous Ioniz Calcium 1.12 mmol/L (1.15-1.35) L 01/09/19 06:02 AST 11 Units/L (13-39) L 01/12/19 05:55 B-Natriuretic Peptide 452 pg/mL (Less than 100) H 01/06/19 16:27 Serum Total Protein 5.9 g/dL (6.4-8.9) L 01/12/19 05:55 Globulin 2.2 g/dL (2.4-3.5) L 01/12/19 05:55 - Clinical Findings Intake & Output: Intake & Output 01/11/19 01/11/19 01/12/19 15:59 23:59 07:59 Intake Total 115.1 / 115.1 219 / 219 236 / 236 Output Total 611 / 611 600 / 600 500 / 500 Balance -495.9 / -495.9 -381 / -381 -264 / -264 Weight 80.5 kg
[2019-01-12] MEDS: *HR* Promethazine 25 MG/ML VIAL IVP PRN ×3 (07:32→19:09)
[2019-01-12] MEDS: Budesonide/Formoterol 160/4.5 1 PUFF INH IH SCH ×2 (07:48→20:40)
[2019-01-12] MEDS: Nitroprusside 50 MG in D5% in Water 250 ML IVC SCH (08:11)
[2019-01-12] MEDS: Phenylephrine 50 MG in D5% in Water 250 ML IVC SCH (08:13)
[2019-01-12] MEDS: lamoTRIgine 25 MG TABLET PO SCH ×2 (08:16→19:06)
[2019-01-12] MEDS: Aspirin Enteric Coated 81 MG Tablet PO SCH (08:16)
[2019-01-12] MEDS: Insulin LISPRO 300 UNITS/3 ML VIAL SQ SCH ×4 (08:20→19:11)
[2019-01-12] MEDS: MetroNIDAZOLE 500 MG/100 ML 500 MG/100 ML BAG IVPB SCH ×3 (08:28→23:12)
[2019-01-12] MEDS: Cefepime HCl 1,000 MG in Water for inj. (sterile) 20 ML 10 ML IVP SCH ×3 (08:28→23:11)
[2019-01-12] MEDS: Hydrocortisone Sodium Succ 100 MG/2 ML VIAL IVP SCH ×3 (12:14→23:11)
--- NOTE | 2019-01-12 14:17 | General Surgery Progress Note ---
<Tammi Meneses - Last Filed: 01/12/19 14:21> Date of Encounter: 01/12/19 Time of Encounter: 13:40 - Assessment and Plan (1) Symptomatic cholelithiasis Current Visit: Yes Status: Acute CT abd/pelvis shows cholelithiasis with probable gallbladder sludge. RUQ ultrasound shows gallstone and gallbladder sludge. No acute cholecystitis. Hepatic panel is unremarkable. HIDA scan shows non-visualization of gallbladder, indicating acute cholecystitis or severe chronic cystic duct narrowing Plan for percutaneous cholecystectomy by IR. IR is already aware. Hold heparin drip for 3 hours prior to procedure. Continue supportive care. Continue abx Continue to monitior. (2) Pulmonary embolism Current Visit: Yes Status: Acute CTA chest shows small segmental PE in right upper lung Heparin drip Management per primary team. Qualifiers: Pulmonary embolism type: other Chronicity: acute Acute cor pulmonale presence: without acute cor pulmonale Qualified Code(s): I26.99 - Other pulmonary embolism without acute cor pulmonale (3) Squamous cell carcinoma of lung, stage IV Current Visit: Yes Status: Acute History of stage IV squamous cell carcinoma of the lungs with bilateral meta static pulmonary nodules Qualifiers: Laterality: unspecified laterality Qualified Code(s): C34.90 - Malignant neoplasm of unspecified part of unspecified bronchus or lung (4) Diabetes mellitus Current Visit: No Status: Chronic History of diabetes Qualifiers: Diabetes mellitus type: type 2 Diabetes mellitus local intermodal truck driver insulin use: without local intermodal truck driver use Diabetes mellitus complication status: with unspecified complications Qualified Code(s): E11.8 - Type 2 diabetes mellitus with unspecified complications Subjective Narrative: Patient seen and examined. Patient started having hypotension yesterday. Currently on pressor support. Patient states shes not doing good. States she has abdominal pain. Started this morning. Indicates pain at left and right lumbar regions, and umbilical region. Describes pain as dull, sharp, and crampy. It is constant. Rates 6-7/10. Is a little better after Phenergan. Admits nausea. States she vomited once. Minimal spittle is noted in emesis bag. Patient belches 3 times during visit. States shes passing gas. Denies bowel movement. Objective Vital Signs - Last 8 Hours Temp Pulse Resp BP Pulse Ox 01/12/19 13:00 128 16 147/108 94 01/12/19 12:00 117 16 83/58 97 01/12/19 11:49 97.5 F L 01/12/19 11:46 112 01/12/19 11:21 12 97 01/12/19 11:00 112 16 70/57 98 01/12/19 10:00 117 18 76/57 95 01/12/19 09:00 123 16 146/112 94 01/12/19 08:30 123 01/12/19 08:00 123 20 133/106 93 01/12/19 07:59 97.7 F 01/12/19 07:49 16 92 01/12/19 07:00 123 16 144/101 93 Intake and Output 01/11/19 01/12/19 01/12/19 23:59 07:59 15:59 Intake Total 229 / 229 336 / 336 110 / 110 Output Total 600 / 600 1000 / 1000 0 / 0 Balance -371 / -371 -664 / -664 110 / 110 Intake: IV Fluids 129 / 129 336 / 336 110 / 110 Heparin 25,000 UNIT/500 ML D5W 236 / 236 25,000 unit In 500 ml @ 14 UNIT /KG/HR 22.596 mls/hr IVC . Q22H8M [facility] Rx#:[id number] Levophed 4 MG In Dextrose 5% 250 ML @ Per Protocol IVC CONT [facility] Rx#:[id number] Maxipime 1,000 MG In Water for 10 10 inj. (sterile) 10 ML @ 300 mls/ hr IVP Q8HR [facility] Rx#:[id number] Flagyl Premix 500 MG/100 ML 500 100 / 100 100 / 100 100 / 100 mg In 100 ml @ 100 mls/hr IVPB Q8HR [facility] Rx#:[id number] Oral 100 / 100 Output: Urine 600 / 600 1000 / 1000 0 / 0 Other: Weight 80.5 kg Blood Glucose* 170 142 195 Patient Weight 01/12/19 23:59 Weight 80.5 kg - Additional Exam VITAL SIGNS: Reviewed. See [facility] GENERAL: In no apparent distress. HEENT: Normocephalic, atraumatic, pupils are equal and reactive, extraocular motions intact, oral mucosa is pink and dry. CHEST/RESPIRATORY: The thorax is free from signs of trauma. Lung sounds: clear to auscultation, normal respiratory effort CARDIAC: Regular rate and rhythm. Tachycardia. Normal S1 and S2, without murmu rs, gallops, or rubs. VASCULAR: No Edema. On pressor support. ABDOMEN: soft, nondistended, tenderness at RUQ, bowel sounds present. Ecchymoses from heparin injections are noted at lower abdomen. MUSCULOSKELETAL: Good range of motion of all major joints. Extremities without clubbing, cyanosis or edema. NEUROLOGIC EXAM: Alert and oriented x 3. Speech normal. Follows commands. PSYCHIATRIC: Mood normal. SKIN: No rash or lesions. - Labs 01/12/19 05:55 01/12/19 05:55 Diabetes panel 01/12/19 Range/Units 05:55 Sodium 133 L (136-145) mEq/L Potassium 3.4 L (3.5-5.1) mEq/L Chloride 93 L (98-107) mEq/L Carbon Dioxide 34 H (23-29) mEq/L BUN 29 H (8-23) mg/dL Creatinine 0.67 (0.60-1.20) mg/dL Glucose 149 H (70-105) mg/dL Calcium 9.5 (8.6-10.3) mg/dL AST 11 L (13-39) Units/L ALT 9 (7-52) Units/L Alkaline Phosphatase 40 (34-104) Units/L Albumin 3.7 (3.5-5.7) g/dL Calcium panel 01/12/19 Range/Units 05:55 Calcium 9.5 (8.6-10.3) mg/dL Albumin 3.7 (3.5-5.7) g/dL Pituitary panel 01/12/19 Range/Units 05:55 Sodium 133 L (136-145) mEq/L Potassium 3.4 L (3.5-5.1) mEq/L Chloride 93 L (98-107) mEq/L Carbon Dioxide 34 H (23-29) mEq/L BUN 29 H (8-23) mg/dL Creatinine 0.67 (0.60-1.20) mg/dL Glucose 149 H (70-105) mg/dL Calcium 9.5 (8.6-10.3) mg/dL Adrenal panel 01/12/19 Range/Units 05:55 Sodium 133 L (136-145) mEq/L Potassium 3.4 L (3.5-5.1) mEq/L Chloride 93 L (98-107) mEq/L Carbon Dioxide 34 H (23-29) mEq/L BUN 29 H (8-23) mg/dL Creatinine 0.67 (0.60-1.20) mg/dL Glucose 149 H (70-105) mg/dL Calcium 9.5 (8.6-10.3) mg/dL Total Bilirubin 0.5 (0.3-1.0) mg/dL AST 11 L (13-39) Units/L ALT 9 (7-52) Units/L Alkaline Phosphatase 40 (34-104) Units/L Albumin 3.7 (3.5-5.7) g/dL Consult Discharge Plan - Plan Referrals: Maisha Ruth, RADIO INTERFERENCE EXPERT [Primary Care Provider] - <Lisa Jackson - Last Filed: 01/14/19 08:09> Date of Encounter: 01/12/19 - Assessment and Plan (1) Symptomatic cholelithiasis Current Visit: Yes Status: Acute discussed with radiology/IR that we need the percutaneous cholecystostomy tube hida shows no visualization of gallbladder continue antibiotics will follow (2) Squamous cell carcinoma of lung, stage IV Current Visit: Yes Status: Acute Qualifiers: Laterality: unspecified laterality Qualified Code(s): C34.90 - Malignant neoplasm of unspecified part of unspecified bronchus or lung (3) Pulmonary embolism Current Visit: Yes Status: Acute Qualifiers: Pulmonary embolism type: other Chronicity: acute Acute cor pulmonale presence: without acute cor pulmonale Qualified Code(s): I26.99 - Other pulmonary embolism without acute cor pulmonale (4) Diabetes mellitus type 2 with complications Current Visit: No Status: Chronic Qualifiers: Diabetes mellitus fci insulin use: without local intermodal truck driver use Qualified Code(s): E11.8 - Type 2 diabetes mellitus with unspecified complications Subjective Patient reports: no new complaints, still having pain Objective Vital Signs - Last 8 Hours Temp Pulse Resp BP Pulse Ox 01/14/19 07:42 16 93 01/14/19 06:00 112 15 92/71 94 01/14/19 05:00 113 17 91/71 94 01/14/19 04:00 97.6 F 111 14 101/72 95 01/14/19 03:03 111 16 98/77 94 01/14/19 02:00 110 16 101/77 94 01/14/19 01:00 112 19 91/68 94 Intake and Output 01/13/19 01/14/19 01/14/19 23:59 07:59 15:59 Intake Total 420 / 420 419 / 419 Output Total 620 / 620 60 / 60 Balance -200 / -200 359 / 359 Intake: IV Fluids 420 / 420 419 / 419 Heparin 25,000 UNIT/500 ML D5W 100 / 100 51 / 51 25,000 unit In 500 ml @ 14 UNIT /KG/HR 22.596 mls/hr IVC . Q22H8M [facility] Rx#:[id number] Levophed 4 MG In Dextrose 5% 200 / 200 68 / 68 250 ML @ Per Protocol IVC CONT [facility] Rx#:[id number] Maxipime 1,000 MG In Water for inj. (sterile) 10 ML @ 300 mls/ hr IVP Q8HR [facility] Rx#:[id number] Flagyl Premix 500 MG/100 ML 500 100 / 100 100 / 100 mg In 100 ml @ 100 mls/hr IVPB Q8HR [facility] Rx#:[id number] Potassium Chloride 20 mEq/100 200 / 200 mL 40 meq In 200 ml @ 100 mls/ hr IVPB Q1H [facility] Rx#:[id number] Output: Urine 600 / 600 Wound Drainage 60 60 Right Upper Abdomen 60 / 60 Other: Weight 79.3 kg Blood Glucose* 146 190 Patient Weight 01/14/19 23:59 Weight 79.3 kg - General physical appearance well developed, well nourished, moderate distress, moderate pain - Eyes normal ocular movement - ENT normal mucosa, normocephalic - Neck Neck exam: trachea midline - Respiratory rales: bilateral - Cardiovascular Cardiovascular exam: Present: tachycardia - Abdomen Abdomen: Present: bowel sounds present, soft, tender. Absent: guarding, rebound Abdominal Tenderness: RUQ - Integumentary no rash, no growths - Neurologic normal sensation - Musculoskeletal normal posture - Psychiatric oriented to time, oriented to person, oriented to place, speech is normal, memory intact - Labs 01/14/19 02:30 01/14/19 02:30 Diabetes panel 01/14/19 Range/Units 02:30 Sodium 133 L (136-145) mEq/L Potassium 3.4 L (3.5-5.1) mEq/L Chloride 95 L (98-107) mEq/L Carbon Dioxide 31 H (23-29) mEq/L BUN 28 H (8-23) mg/dL Creatinine 0.63 (0.60-1.20) mg/dL Glucose 160 H (70-105) mg/dL Calcium 8.8 (8.6-10.3) mg/dL AST 10 L (13-39) Units/L ALT 11 (7-52) Units/L Alkaline Phosphatase 33 L (34-104) Units/L Albumin 3.4 L (3.5-5.7) g/dL Calcium panel 01/14/19 Range/Units 02:30 Calcium 8.8 (8.6-10.3) mg/dL Albumin 3.4 L (3.5-5.7) g/dL Pituitary panel 01/14/19 Range/Units 02:30 Sodium 133 L (136-145) mEq/L Potassium 3.4 L (3.5-5.1) mEq/L Chloride 95 L (98-107) mEq/L Carbon Dioxide 31 H (23-29) mEq/L BUN 28 H (8-23) mg/dL Creatinine 0.63 (0.60-1.20) mg/dL Glucose 160 H (70-105) mg/dL Calcium 8.8 (8.6-10.3) mg/dL Adrenal panel 01/14/19 Range/Units 02:30 Sodium 133 L (136-145) mEq/L Potassium 3.4 L (3.5-5.1) mEq/L Chloride 95 L (98-107) mEq/L Carbon Dioxide 31 H (23-29) mEq/L BUN 28 H (8-23) mg/dL Creatinine 0.63 (0.60-1.20) mg/dL Glucose 160 H (70-105) mg/dL Calcium 8.8 (8.6-10.3) mg/dL Total Bilirubin 0.6 (0.3-1.0) mg/dL AST 10 L (13-39) Units/L ALT 11 (7-52) Units/L Alkaline Phosphatase 33 L (34-104) Units/L Albumin 3.4 L (3.5-5.7) g/dL - Attending Attestation I examined this patient and my medical decision-making was reviewed with the Resident Physician. I agree with the documented findings, disposition and tr eatment plan as described except to the extent set forth below.
[2019-01-12] MEDS: Norepinephrine 4 MG in D5% in Water 250 ML IVC SCH (19:06)
[2019-01-12] MEDS: risperiDONE 1 MG TABLET PO SCH (19:06)
[2019-01-13] MEDS: OXYCODONE Oral CONC 10 MG/0.5 ML ORAL.SYG SL PRN ×3 (01:01→15:35)
[2019-01-13] MEDS: *HR* Promethazine 25 MG/ML VIAL IVP PRN ×2 (01:01→08:04)
[2019-01-13 02:41] LABS: Basophils % 0.3 %; Eosinophils % 0.1 %; Hematocrit 36.4 % (35.3-44.9); Hemoglobin 12.8 g/dL (11.5-15.4); Immature Granulocytes % 2.4 % (0-4); Lymphocytes # 0.6 K/mcL (0.6-4.6); Lymphocytes % 7.6 %; Mean Corpuscular HGB Conc 35.2 g/dL (31.6-35.5); Mean Corpuscular Hemoglobin 32.1 pg (28.0-33.3); Mean Corpuscular Volume 91.2 fL (83.0-100.0); Mean Platelet Volume 9.4 fL (9.4-12.4); Monocytes # 0.7 K/mcL (0.0-1.3); Monocytes % 9.1 %; Platelet Count 273 K/mcL (140-400); Red Blood Count 3.99 M/mcL (3.82-4.97); Segmented Neutrophils % 80.5 %
[2019-01-13 02:48] LABS: Heparin anti-factor XA UFH 0.41 IU/mL (0.30-0.70)
[2019-01-13 02:49] LABS: Prothrombin Time 11.8 Seconds (9.4-12.1)
[2019-01-13 03:01] LABS: Alanine Aminotransferase 11 Units/L (7-52); Albumin 3.6 g/dL (3.5-5.7); Albumin/Globulin Ratio 1.7 (1.1-2.2); Alkaline Phosphatase 38 Units/L (34-104); Aspartate Amino Transferase 11 Units/L (13-39); BUN/Creatinine Ratio 39 (6-26); Bilirubin,Total 0.6 mg/dL (0.3-1.0); Blood Urea Nitrogen 26 mg/dL (8-23); Calcium 9.2 mg/dL (8.6-10.3); Carbon Dioxide 34 mEq/L (23-29); Chloride 94 mEq/L (98-107); Globulin 2.1 g/dL (2.4-3.5); Glucose 198 mg/dL (70-105); Magnesium 1.9 mg/dL (1.6-2.6); Osmolality,Calculated 288 (280-300); Potassium 3.3 mEq/L (3.5-5.1); Sodium 134 mEq/L (136-145); Total Protein 5.7 g/dL (6.4-8.9); eGFR For Non-African Americans > 60 (> 60)
[2019-01-13] MEDS: Potassium Chloride 40 MEQ/200 ML BAG IVPB PRN (03:13)
[2019-01-13] MEDS: Levalbuterol Neb 1.25 MG/3 ML IH SCH ×2 (03:45→07:39)
[2019-01-13] MEDS: Hydrocortisone Sodium Succ 100 MG/2 ML VIAL IVP SCH ×4 (05:01→23:03)
[2019-01-13] MEDS: Pantoprazole 40 MG VIAL IVP SCH ×2 (05:01→18:32)
--- NOTE | 2019-01-13 07:25 | Pulmonology Progress Note ---
<Cele Pugh N - Last Filed: 01/13/19 10:59> Date of Encounter: 01/13/19 Time of Encounter: 07:24 Assessment and Plan (1) Hypotension Current Visit: Yes Status: Acute Uncertain etiology. Patient noted to have worsening hypotension overnight, and has been restarted on levophed for pressor support. - Continue close monitoring of blood pressures and pressor support; wean as tolerated. - Blood cultures and urinalysis negative for acute infection. Patient has remained afebrile with white blood cell count WNL. Currently on day 6 of c efepime and Flagyl. Qualifiers: Hypotension type: unspecified hypotension type Qualified Code(s): I95.9 - Hypotension, unspecified (2) Tachycardia Current Visit: Yes Status: Acute Unclear etiology. Plan as above. (3) Biliary colic Current Visit: Yes Status: Acute Long history of biliary colic, with recurrent episodes of nausea, vomiting, and diarrhea. Patient did have a general surgery consult with Dr. Patricia during her last admission. Per his consult note on 12/15/2018, patient may be appropriate candidate for laparoscopic cholecystectomy; however, she has multiple comorbidities, including newly diagnosed lung cancer, that would need to be assessed and managed first. Surgery consult was placed on 01/07/2019; however, patient has not been evaluated by surgery during this admission. CT of the abdomen and pelvis performed in the ED was significant for cholelithiasis and some pericholecystic fluid suggesting acute cholecystitis; however, gallbladder or ultrasound negative for signs of acute cholecystitis. Additionally, patient has remained afebrile with normal white count throughout this admission. For the weekend, patient was evaluated by surgery team, with recommendations for percutaneous cholecystostomy tube placement by interventional radiology team. Patient was evaluated by IR team, who recommended HIDA scan prior to invasive therapies. HIDA scan was consistent with acute cholecystitis, and plavix has been held in anticipation of cholecystostomy tube placement. - Tentative plan for cholecystostomy tube placement this afternoon with IR. - Continue antibiotic therapy with cefepime and flagyl. Currently day 6 of therapy. Anticipate d/c antibiotics following definitive management for acute cholecystitis. (4) Anxiety Current Visit: Yes Status: Acute Patient has not received klonopin since yesterday due to severe nausea and epigastric pain. She is currently NPO. - One-time dose of ativan 0.5mg IVP ordered for acute anxiety - Anticipate restarting klonopin and celexa as soon as she is able to tolerate PO intake. (5) Acute exacerbation of chronic obstructive airways disease Current Visit: Yes Status: Acute Patient was initially treated as acute COPD exacerbation; however, she denies any respiratory complaints at this time. - Continue IV Solu-Medrol 40mg Q 12H and hydrocortisone 50mg Q6H. - Scheduled xopenex Q4H. - Albuterol nebs Q2H PRN. - Continue Symbicort 2 puffs twice a day. 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 - Recommend hold on port placement and chemotherapy initiation pending resolution of hypertension and tachycardia. - Recommend outpatient followup with hematology/oncology after hospital discharge. Qualifiers: Laterality: unspecified laterality Qualified Code(s): C34.90 - Malignant neoplasm of unspecified part of unspecified bronchus or lung Subjective Principal diagnosis: Hypotension Interval history: Patient was noted to have worsening hypotension overnight, requiring reinitiation of levophed for pressor support. HR was noted to be WNL in the 70s and 80s overnight. Patient reports increasing frustration, stating that she has been "laying here all week" and feels that "no one is doing anything". Patient also reports increased anxiety, which she attributes to not having received antidepressants or anxiolytics since yesterday afternoon due to severe nausea. Objective PUL Vital signs: Last Vital Signs Temp 97.4 F L 01/13/19 04:55 Pulse 95 01/13/19 06:00 Resp 15 01/13/19 06:00 BP 85/62 01/13/19 06:00 Pulse Ox 96 01/13/19 06:00 GENERAL: Well-developed, well-nourished adult female in mild distress secondary to anxiety/frustration and abdominal pain. HEENT: Atraumatic and normocephalic. CARDIOVASCULAR: Sinus tachycardia. S1 and S2 present. No murmurs, gallops, or rubs. RESPIRATORY: Clear to auscultation bilaterally. Chest rises and falls symmetrically with respiration. No accessory muscle use noted. GASTROINTESTINAL: Bowel sounds present. Patient is tender to palpation, particularly in RUQ/epigastric region. Voluntary guarding present. EXTREMITIES: No clubbing, cyanosis, or edema present. SKIN: Warm, dry, and intact. NEUROLOGIC: Alert and oriented x3. Patient is cooperative with exam and answers questions appropriately. No apparent focal deficits present. PSYCHIATRIC: Patient voices increasing frustration and appears mildly anxious. Results - Laboratory Findings CBC and BMP: 01/13/19 02:30 01/13/19 02:30 PT/INR, D-dimer PT 11.8 Seconds (9.4-12.1) 01/13/19 02:30 D-Dimer 1354 ng/mLFEU (0-500) H 01/07/19 19:29 Abnormal lab findings: Abnormal lab results APTT 60.1 Seconds (26.0-36.0) H 01/06/19 16:27 D-Dimer 1354 ng/mLFEU (0-500) H 01/07/19 19:29 Sodium 134 mEq/L (136-145) L 01/13/19 02:30 Potassium 3.3 mEq/L (3.5-5.1) L 01/13/19 02:30 Chloride 94 mEq/L (98-107) L 01/13/19 02:30 Carbon Dioxide 34 mEq/L (23-29) H 01/13/19 02:30 BUN 26 mg/dL (8-23) H 01/13/19 02:30 BUN/Creatinine Ratio 39 (6-26) H 01/13/19 02:30 Glucose 198 mg/dL (70-105) H 01/13/19 02:30 POC Glucose 145 mg/dL (70-99) H 01/12/19 19:09 Venous Ioniz Calcium 1.12 mmol/L (1.15-1.35) L 01/09/19 06:02 AST 11 Units/L (13-39) L 01/13/19 02:30 B-Natriuretic Peptide 452 pg/mL (Less than 100) H 01/06/19 16:27 Serum Total Protein 5.7 g/dL (6.4-8.9) L 01/13/19 02:30 Globulin 2.1 g/dL (2.4-3.5) L 01/13/19 02:30 - Clinical Findings Intake & Output: Intake & Output 01/12/19 01/12/19 01/13/19 15:59 23:59 07:59 Intake Total 110 / 110 120 / 120 449 / 449 Output Total 300 / 300 200 / 200 600 / 600 Balance -190 / -190 -80 / -80 -151 / -151 Weight 80.6 kg Consult Discharge Plan - Plan Referrals: Maisha Ruth, INCOME AUDITOR [Primary Care Provider] - <CkTereza cunha S - Last Filed: 01/13/19 14:38> Date of Encounter: 01/13/19 Objective PUL Vital signs: Last Vital Signs Temp 97.7 F 01/13/19 11:10 Pulse 107 01/13/19 14:27 Resp 19 01/13/19 13:00 BP 87/64 01/13/19 14:27 Pulse Ox 93 01/13/19 14:27 Results - Laboratory Findings CBC and BMP: 01/13/19 02:30 01/13/19 02:30 PT/INR, D-dimer PT 11.8 Seconds (9.4-12.1) 01/13/19 02:30 D-Dimer 1354 ng/mLFEU (0-500) H 01/07/19 19:29 Abnormal lab findings: Abnormal lab results APTT 60.1 Seconds (26.0-36.0) H 01/06/19 16:27 D-Dimer 1354 ng/mLFEU (0-500) H 01/07/19 19:29 Sodium 134 mEq/L (136-145) L 01/13/19 02:30 Potassium 3.3 mEq/L (3.5-5.1) L 01/13/19 02:30 Chloride 94 mEq/L (98-107) L 01/13/19 02:30 Carbon Dioxide 34 mEq/L (23-29) H 01/13/19 02:30 BUN 26 mg/dL (8-23) H 01/13/19 02:30 BUN/Creatinine Ratio 39 (6-26) H 01/13/19 02:30 Glucose 198 mg/dL (70-105) H 01/13/19 02:30 POC Glucose 145 mg/dL (70-99) H 01/12/19 19:09 Venous Ioniz Calcium 1.12 mmol/L (1.15-1.35) L 01/09/19 06:02 AST 11 Units/L (13-39) L 01/13/19 02:30 B-Natriuretic Peptide 452 pg/mL (Less than 100) H 01/06/19 16:27 Serum Total Protein 5.7 g/dL (6.4-8.9) L 01/13/19 02:30 Globulin 2.1 g/dL (2.4-3.5) L 01/13/19 02:30 - Microbiology Findings Microbiology Findings: Microbiology, Last 48 Hours 01/08/19 08:25 Blood Culture - Final Peripheral Central Cath, Picc No growth. Final report. 01/08/19 08:29 Blood Culture - Final Peripheral Central Cath, Picc No growth. Final report. - Clinical Findings Intake & Output: Intake & Output 01/12/19 01/13/19 01/13/19 23:59 07:59 15:59 Intake Total 120 / 120 449 / 449 510 / 510 Output Total 200 / 200 900 / 900 300 / 300 Balance -80 / -80 -451 / -451 210 / 210 Weight 80.6 kg - Attending Attestation I saw and evaluated this patient and my medical decision-making was reviewed with the Resident Physician. I agree with the documented findings, disposition and treatment plan as described except to the extent set forth below. We independently had [id number]-[id number] contact with the patient I spent 33 minutes of Critical Care time with this patient. It involved decision making of high complexity to assess, manipulate, and support vital organ system failure and/or to prevent further life threatening deterioration of the patient's condition. The time involved in the performance of separately reportable procedures was not counted toward critical care time. Patient seen and examined at bedside Labs, radiology, chart personally reviewed. Management was reviewed during multidisciplinary critical care rounds. ZIG ZAG STITCHER: Patient is conscious oriented 3 no evidence of toxic/metabolic encephalopathy no evidence of cerebrovascular accident Pulm: Patient is acceptable V/Q mismatch patient has stage IV squamous cell carcinoma of lung waiting for outpatient chemotherapy cannot be started now with his underlying possible sepsis due to biliary source Cards: Patient was hypotensive most likely due to possible intra-abdominal sepsis versus ablative additional insufficiency to continue vasopressor support and IV hydrocortisone FEN-GI: Advance diet as tolerated but will keep her nothing by mouth for possible cholecystostomy tube today patient has acute cholecystitis according to HIDA scan to continue broad-spectrum coverage Renal: Labs and output were reviewed ID: To continue broad-spectrum coverage cultures are negative Heme/Onc: Labs reviewed Endo: Glucose Monitored Integ/MSK: Skin Care per routine ICU Nursing Protocol to prevent ulcers. Lines: All lines examined without evidence of infection : Dispo: To remain in ICU CODE:Full Code
[2019-01-13] MEDS: Budesonide/Formoterol 160/4.5 1 PUFF INH IH SCH ×2 (07:39→20:12)
[2019-01-13] MEDS: MetroNIDAZOLE 500 MG/100 ML 500 MG/100 ML BAG IVPB SCH ×3 (08:05→23:04)
[2019-01-13] MEDS: Cefepime HCl 1,000 MG in Water for inj. (sterile) 20 ML 10 ML IVP SCH ×3 (08:05→23:02)
[2019-01-13] MEDS: Insulin LISPRO 300 UNITS/3 ML VIAL SQ SCH ×6 (08:06→23:05)
[2019-01-13] MEDS: lamoTRIgine 25 MG TABLET PO SCH ×2 (08:07→20:02)
[2019-01-13] MEDS: Aspirin Enteric Coated 81 MG Tablet PO SCH (08:07)
[2019-01-13] MEDS: Phenylephrine 50 MG in D5% in Water 250 ML IVC SCH (08:07)
[2019-01-13] MEDS ORDERED: *HR* LORazepam 2 MG/ML VIAL IVP ONE (09:04)
--- NOTE | 2019-01-13 09:26 | Electrocardiograph Report ---
[address] [place], [place] [address] Test Date: 2019-01-11 Pat Name: Faith Mace Department: 109 Room: [facility] Gender: F Chain Puller: ROSALVA : 1955 Requested By: Barrington Oneill Order Number: [id number] Reading MD: Brittnee Mac Measurements Intervals [place] Rate: 120 P: 73 LA: 148 QRS: 12 QRSD: 75 T: 108 QT: 339 QTc: 410 Interpretive Statements SINUS TACHYCARDIA Electronically Signed On 01-13-2019 9:24:41 EST by Brittnee Mac
[2019-01-13] MEDS: Heparin 25,000 UNIT/500 ML D5W 25,000 UNIT/500 ML BAG IVC SCH ×2 (11:49→23:10)
[2019-01-13] MEDS ORDERED: *HR* FentaNYL (PF) 100 MCG/2 ML VIAL IVP ONE (13:55)
[2019-01-13] MEDS ORDERED: *HR* Midazolam HCl 2 MG/2 ML VIAL IVP ONE (13:55)
--- NOTE | 2019-01-13 14:55 | Pre-Sedation Evaluation ---
Pre-sedation evaluation - Pre-sedation checklist Date of procedure: 01/13/19 Procedure: lonnie tube Recent Vitals: Last Vital Signs Temp 97.7 F 01/13/19 11:10 Pulse 111 01/13/19 14:36 Resp 19 01/13/19 13:00 BP 103/72 01/13/19 14:36 Pulse Ox 92 01/13/19 14:36 H&P (including ROS) documented in medical record: Yes Previous reaction to sedatives/anesthetics: No Dietary Status: NPO after Midnight Airway Assessment: Patient can open mouth completely, TMJ function normal, Micrognathia (under-bite, receding chin) absent, Neck with adequate range of motion Dentition: full dentition ASA Classification *see protocol: CLASS II-Mild systemic disease Plan of Care: Pt appropriate candidate for procedure/moderate/conscious sedation, Risks/benefits of procedure/sedation discussed w/ patient/family, If not NPO; Risk of intake outweiged by necessity to perform procedure
--- NOTE | 2019-01-13 14:57 | IR Procedure Note ---
Date of procedure: 01/13/19 Consent Obtained: Verbal consent, Written consent Timeout: Correct patient and procedure verified, Correct site verified, Time out performed, Skin prep completed Local anesthetic: Lidocaine 1% Indications: possible cholecystitis Procedure Performed: perc. cholecystostomy tube placement Was there an post production assistant present: No Estimated blood loss (cc): 2 Complications: None; Tolerated procedure well Post Procedure Treatment Plan: please flush drain with 5 cc saline bid Specimen: small amount of thick dark bile aspirated and sent to lab
[2019-01-13] MEDS: risperiDONE 1 MG TABLET PO SCH (20:03)
[2019-01-13] MEDS: clonazePAM 1 MG TABLET PO PRN (20:03)
[2019-01-13] MEDS: Norepinephrine 4 MG in D5% in Water 250 ML IVC SCH (20:04)
[2019-01-14 02:45] LABS: Basophils % 0.3 %; Hematocrit 34.3 % (35.3-44.9); Hemoglobin 12.1 g/dL (11.5-15.4); Immature Granulocytes % 2.6 % (0-4); Lymphocytes # 0.6 K/mcL (0.6-4.6); Lymphocytes % 9.5 %; Mean Corpuscular HGB Conc 35.3 g/dL (31.6-35.5); Mean Corpuscular Hemoglobin 31.9 pg (28.0-33.3); Mean Corpuscular Volume 90.5 fL (83.0-100.0); Monocytes # 0.6 K/mcL (0.0-1.3); Monocytes % 9.9 %; Platelet Count 225 K/mcL (140-400); Red Blood Count 3.79 M/mcL (3.82-4.97); Red Cell Distribution Width 12.1 % (11.5-14.5); Segmented Neutrophils % 77.7 %
[2019-01-14 03:04] LABS: Alanine Aminotransferase 11 Units/L (7-52); Albumin 3.4 g/dL (3.5-5.7); Albumin/Globulin Ratio 1.6 (1.1-2.2); Alkaline Phosphatase 33 Units/L (34-104); Aspartate Amino Transferase 10 Units/L (13-39); BUN/Creatinine Ratio 44 (6-26); Bilirubin,Total 0.6 mg/dL (0.3-1.0); Blood Urea Nitrogen 28 mg/dL (8-23); Calcium 8.8 mg/dL (8.6-10.3); Carbon Dioxide 31 mEq/L (23-29); Chloride 95 mEq/L (98-107); Globulin 2.1 g/dL (2.4-3.5); Glucose 160 mg/dL (70-105); Osmolality,Calculated 285 (280-300); Potassium 3.4 mEq/L (3.5-5.1); Sodium 133 mEq/L (136-145); Total Protein 5.5 g/dL (6.4-8.9); eGFR For Non-African Americans > 60 (> 60)
[2019-01-14] MEDS: Potassium Chloride 40 MEQ/200 ML BAG IVPB PRN (03:13)
[2019-01-14] MEDS ORDERED: Dextrose Gel 15 GM/37.5 ML TUBE PO PRN ×2 (04:16)
[2019-01-14] MEDS ORDERED: D5% in Water 1,000 ML IVC PRN (04:16)
[2019-01-14] MEDS ORDERED: *HR* Dextrose 50 % in Water (Syg) 50 ML SYRINGE IVP PRN (04:16)
[2019-01-14] MEDS ORDERED: Dextrose 4 GM Chewable Tablets PO PRN ×2 (04:16)
[2019-01-14] MEDS: Insulin LISPRO 300 UNITS/3 ML VIAL SQ SCH ×5 (04:23→20:02)
[2019-01-14] MEDS: Hydrocortisone Sodium Succ 100 MG/2 ML VIAL IVP SCH ×4 (05:01→23:05)
[2019-01-14] MEDS: Pantoprazole 40 MG VIAL IVP SCH ×2 (05:02→16:53)
--- NOTE | 2019-01-14 07:32 | Pulmonology Progress Note ---
<Tereza Villalba S - Last Filed: 01/14/19 12:30> Date of Encounter: 01/14/19 Objective PUL Vital signs: Last Vital Signs Temp 97.8 F 01/14/19 12:21 Pulse 117 01/14/19 11:00 Resp 17 01/14/19 11:00 BP 87/65 01/14/19 11:00 Pulse Ox 94 01/14/19 11:00 Results - Laboratory Findings CBC and BMP: 01/14/19 02:30 01/14/19 08:30 PT/INR, D-dimer PT 11.8 Seconds (9.4-12.1) 01/13/19 02:30 D-Dimer 1354 ng/mLFEU (0-500) H 01/07/19 19:29 Abnormal lab findings: Abnormal lab results RBC 3.79 M/mcL (3.82-4.97) L 01/14/19 02:30 Hct 34.3 % (35.3-44.9) L 01/14/19 02:30 MPV 9.0 fL (9.4-12.4) L 01/14/19 02:30 APTT 60.1 Seconds (26.0-36.0) H 01/06/19 16:27 D-Dimer 1354 ng/mLFEU (0-500) H 01/07/19 19:29 Sodium 133 mEq/L (136-145) L 01/14/19 02:30 Chloride 95 mEq/L (98-107) L 01/14/19 02:30 Carbon Dioxide 31 mEq/L (23-29) H 01/14/19 02:30 BUN 28 mg/dL (8-23) H 01/14/19 02:30 BUN/Creatinine Ratio 44 (6-26) H 01/14/19 02:30 Glucose 160 mg/dL (70-105) H 01/14/19 02:30 POC Glucose 190 mg/dL (70-99) H 01/13/19 23:00 Venous Ioniz Calcium 1.12 mmol/L (1.15-1.35) L 01/09/19 06:02 AST 10 Units/L (13-39) L 01/14/19 02:30 Alkaline Phosphatase 33 Units/L (34-104) L 01/14/19 02:30 B-Natriuretic Peptide 452 pg/mL (Less than 100) H 01/06/19 16:27 Serum Total Protein 5.5 g/dL (6.4-8.9) L 01/14/19 02:30 Albumin 3.4 g/dL (3.5-5.7) L 01/14/19 02:30 Globulin 2.1 g/dL (2.4-3.5) L 01/14/19 02:30 - Microbiology Findings Microbiology Findings: Microbiology, Last 48 Hours 01/13/19 14:45 Fungal Culture - Preliminary Gallbladder Fluid Culture is incubating. 01/13/19 14:45 Body Fluid Culture - Preliminary Gallbladder Fluid Culture is incubating. 01/13/19 14:45 Anaerobic Culture - Preliminary Gallbladder Fluid Culture is incubating. 01/08/19 08:25 Blood Culture - Final Peripheral Central Cath, Picc No growth. Final report. 01/08/19 08:29 Blood Culture - Final Peripheral Central Cath, Picc No growth. Final report. - Clinical Findings Intake & Output: Intake & Output 01/13/19 01/14/19 01/14/19 23:59 07:59 15:59 Intake Total 420 / 420 419 / 419 170 / 170 Output Total 620 / 620 60 / 60 520 / 520 Balance -200 / -200 359 / 359 -350 / -350 Weight 79.3 kg Consult Discharge Plan - Plan Referrals: Maisha Ruth, LIFESTYLE COORDINATOR [Primary Care Provider] - - Attending Attestation - Attending Attestation I saw and evaluated this patient and my medical decision-making was reviewed with the Resident Physician. I agree with the documented findings, disposition and treatment plan as described except to the extent set forth below. We independently had [id number] contact with the patient Patient seen and examined at bedside Labs, radiology, chart personally reviewed. Management was reviewed during multidisciplinary critical care rounds. ARCHITECT IN TRAINING: Patient is conscious oriented 3 no evidence of toxic/metabolic encephalopathy no evidence of cerebrovascular accident Pulm: Patient is acceptable V/Q mismatch patient has stage IV squamous cell carcinoma of lung waiting for outpatient chemotherapy cannot be started now with his underlying possible sepsis due to biliary source Cards: Patient was hypotensive most likely due to possible intra-abdominal s epsis versus related adrenal insufficiency to continue IV hydrocortisone then start liberating it . Patient is off vasopressors from 6 AM. FEN-GI: Advance diet as tolerated according to surgery patient got the cholecystostomy tube Renal: Labs and output were reviewed ID: To continue broad-spectrum coverage cultures are negative will start to descalate antibiotics depending on the clinical response. Heme/Onc: Labs reviewed Endo: Glucose Monitored . Patient most likely have relative adrenal insufficiency since the random cortisol is so low suspect primary/secondary adrenal insufficiency will need ACTH stimulation test after stoppage off IV hydrocortisone 24 hours after the last dose will start liberating the IV hydrocortisone soon. Integ/MSK: Skin Care per routine ICU Nursing Protocol to prevent ulcers. Lines: All lines examined without evidence of infection : Dispo: To remain in ICU CODE:Full Code <Cele Pugh N - Last Filed: 01/14/19 13:11> Date of Encounter: 01/14/19 Time of Encounter: 07:32 Assessment and Plan (1) Hypotension Current Visit: Yes Status: Acute Etiology remains unclear. Patient noted to have worsening hypotension overnight on 01/13/2019, prompting reinitiation of pressor therapy with levophed. Patient has been weaned off levophed as of this morning, and continues to deny any symptoms associated with her BP. Patient does have a cumulative fluid balance of greater than 5L over this ad mission; 1L LR bolus administered over 2 hours with some improvement in BP. - Continue close monitoring of blood pressures. Consider additional fluid boluses if needed. - Blood cultures and urinalysis negative for acute infection. Patient has remained afebrile with white blood cell count WNL. Currently on day 7 of cefepime and Flagyl for acute cholecystitis. - Consider ACTH stimulation test. Qualifiers: Hypotension type: unspecified hypotension type Qualified Code(s): I95.9 - Hypotension, unspecified (2) Biliary colic Current Visit: Yes Status: Acute Long history of biliary colic, with recurrent episodes of nausea, vomiting, and diarrhea. Patient did have a general surgery consult with Dr. Patricia during her last admission. Per his consult note on 12/15/2018, patient may be appropriate candidate for laparoscopic cholecystectomy; however, she has multiple co morbidities, including newly diagnosed lung cancer, that would need to be assessed and managed first. Surgery consult was placed on 01/07/2019; however, patient has not been evaluated by surgery during this admission. CT of the abdomen and pelvis performed in the ED was significant for cholelithiasis and some pericholecystic fluid suggesting acute cholecystitis; however, gallbladder or ultrasound negative for signs of acute cholecystitis. Additionally, patient has remained afebrile with normal white count throughout this admission. Patient was evaluated by surgery team, with recommendations for percutaneous cholecystostomy tube placement by interventional radiology team. Patient was evaluated by IR team, who recommended HIDA scan prior to invasive therapies. HIDA scan was consistent with acute cholecystitis. Percutaneous cholecystostomy tube placed yesterday but IR team. Patient reports complete resolution of abdominal pain and nausea, and is tolerating PO intake well. - Day 1 s/p cholecystostomy tube placement. Appreciate ongoing surgery evaluations and recommendations. - Continue antibiotic therapy with cefepime and flagyl. Currently day 7 of therapy. Anticipate possible d/c of antibiotic therapy tomorrow if no overt signs of ongoing infection. (3) Anxiety Current Visit: Yes Status: Acute - Continue home medications of celexa 40mg daily and klonopin 1mg QID PRN. 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 - Recommend hold on port placement and chemotherapy initiation pending resolution of hypertension and tachycardia. - Recommend outpatient followup with hematology/oncology after hospital discharge. Qualifiers: Laterality: unspecified laterality Qualified Code(s): C34.90 - Malignant neoplasm of unspecified part of unspecified bronchus or lung Subjective Principal diagnosis: Hypotension Interval history: Patient was seen evaluated at the bedside. She reports nearly complete resolution of her abdominal pain and nausea since placement of percutaneous cholecystostomy tube yesterday afternoon. She reports that she tolerated a clear liquid diet without issue, and was able to consume ice cream and sherbet last night without complication. She voices being very hungry, and states that she would like to advance to a regular diet today. She continues to deny any symptoms related to her fluctuating blood pressures. She denies any acute complaints or concerns at this time. Objective PUL Vital signs: Last Vital Signs Temp 97.6 F 01/14/19 04:00 Pulse 112 01/14/19 06:00 Resp 15 01/14/19 06:00 BP 92/71 01/14/19 06:00 Pulse Ox 94 01/14/19 06:00 GENERAL: Well-developed, well-nourished adult female in no acute distress. HEENT: Atraumatic and normocephalic. CARDIOVASCULAR: Sinus tachycardia. S1 and S2 present. No murmurs, gallops, or rubs. RESPIRATORY: Clear to auscultation bilaterally. Chest rises and falls symmetrically with respiration. No accessory muscle use noted. GASTROINTESTINAL: Active bowel sounds x 4 quadrants. Abdomen is soft, nontender, and nondistended. No guarding present. EXTREMITIES: No clubbing, cyanosis, or edema present. SKIN: Warm, dry, and intact. NEUROLOGIC: Alert and oriented x3. Patient is cooperative with exam and answers questions appropriately. No apparent focal deficits present. PSYCHIATRIC: Mood and affect appropriate. Results - Laboratory Findings CBC and BMP: 01/14/19 02:30 01/14/19 08:30 PT/INR, D-dimer PT 11.8 Seconds (9.4-12.1) 01/13/19 02:30 D-Dimer 1354 ng/mLFEU (0-500) H 01/07/19 19:29 Abnormal lab findings: Abnormal lab results RBC 3.79 M/mcL (3.82-4.97) L 01/14/19 02:30 Hct 34.3 % (35.3-44.9) L 01/14/19 02:30 MPV 9.0 fL (9.4-12.4) L 01/14/19 02:30 APTT 60.1 Seconds (26.0-36.0) H 01/06/19 16:27 D-Dimer 1354 ng/mLFEU (0-500) H 01/07/19 19:29 Sodium 133 mEq/L (136-145) L 01/14/19 02:30 Potassium 3.4 mEq/L (3.5-5.1) L 01/14/19 02:30 Chloride 95 mEq/L (98-107) L 01/14/19 02:30 Carbon Dioxide 31 mEq/L (23-29) H 01/14/19 02:30 BUN 28 mg/dL (8-23) H 01/14/19 02:30 BUN/Creatinine Ratio 44 (6-26) H 01/14/19 02:30 Glucose 160 mg/dL (70-105) H 01/14/19 02:30 POC Glucose 190 mg/dL (70-99) H 01/13/19 23:00 Venous Ioniz Calcium 1.12 mmol/L (1.15-1.35) L 01/09/19 06:02 AST 10 Units/L (13-39) L 01/14/19 02:30 Alkaline Phosphatase 33 Units/L (34-104) L 01/14/19 02:30 B-Natriuretic Peptide 452 pg/mL (Less than 100) H 01/06/19 16:27 Serum Total Protein 5.5 g/dL (6.4-8.9) L 01/14/19 02:30 Albumin 3.4 g/dL (3.5-5.7) L 01/14/19 02:30 Globulin 2.1 g/dL (2.4-3.5) L 01/14/19 02:30 - Microbiology Findings Microbiology Findings: Microbiology, Last 48 Hours 01/13/19 14:45 Body Fluid Culture - Preliminary Gallbladder Fluid Culture is incubating. 01/13/19 14:45 Anaerobic Culture - Preliminary Gallbladder Fluid Culture is incubating. 01/08/19 08:25 Blood Culture - Final Peripheral Central Cath, Picc No growth. Final report. 01/08/19 08:29 Blood Culture - Final Peripheral Central Cath, Picc No growth. Final report. - Clinical Findings Intake & Output: Intake & Output 01/13/19 01/13/19 01/14/19 15:59 23:59 07:59 Intake Total 510 / 510 420 / 420 419 / 419 Output Total 300 / 300 620 / 620 60 / 60 Balance 210 / 210 -200 / -200 359 / 359 Weight 79.3 kg
[2019-01-14] MEDS: Budesonide/Formoterol 160/4.5 1 PUFF INH IH SCH ×2 (07:42→20:32)
[2019-01-14] MEDS: lamoTRIgine 25 MG TABLET PO SCH ×2 (08:16→20:03)
[2019-01-14] MEDS: MetroNIDAZOLE 500 MG/100 ML 500 MG/100 ML BAG IVPB SCH ×3 (08:16→23:05)
[2019-01-14] MEDS: Aspirin Enteric Coated 81 MG Tablet PO SCH (08:17)
[2019-01-14] MEDS: Cefepime HCl 1,000 MG in Water for inj. (sterile) 20 ML 10 ML IVP SCH ×3 (08:17→23:05)
[2019-01-14] MEDS: Phenylephrine 50 MG in D5% in Water 250 ML IVC SCH (08:18)
[2019-01-14] MEDS: OXYCODONE Oral CONC 10 MG/0.5 ML ORAL.SYG SL PRN ×2 (08:18→14:43)
[2019-01-14] MEDS: clonazePAM 1 MG TABLET PO PRN ×2 (08:23→14:43)
[2019-01-14] MEDS ORDERED: Ringers Solution, Lactated 1,000 ML IVC ONE ×2 (10:43→14:44)
--- NOTE | 2019-01-14 12:22 | General Surgery Progress Note ---
Date of Encounter: 01/14/19 Time of Encounter: 12:20 - Assessment and Plan (1) Cholelithiasis Current Visit: Yes Status: Acute 63F with active gallbladder disease now s/p cholecystostomy tube placement; patient reports feeling 100% better; tolerating diet cont with cholecystostomy tube pain control per primary team activity as tolerated no acute surgery will cont to follow Qualifiers: Cholelithiasis location: gallbladder Cholecystitis presence: without cholecystitis Biliary obstruction: without biliary obstruction Qualified Code(s): K80.20 - Calculus of gallbladder without cholecystitis without obstruction Subjective Patient reports: no new complaints, feels better, tolerating liquids well, tolerating a regular diet, afebrile Objective Vital Signs - Last 8 Hours Temp Pulse Resp BP Pulse Ox 01/14/19 11:00 117 17 87/65 94 01/14/19 10:00 118 18 77/53 93 01/14/19 09:00 112 17 94/70 93 01/14/19 08:28 98.1 F 01/14/19 07:42 16 93 01/14/19 07:00 112 01/14/19 06:00 112 15 92/71 94 01/14/19 05:00 113 17 91/71 94 Intake and Output 01/13/19 01/14/19 01/14/19 23:59 07:59 15:59 Intake Total 420 / 420 419 / 419 170 / 170 Output Total 620 / 620 60 / 60 10 / 10 Balance -200 / -200 359 / 359 160 / 160 Intake: IV Fluids 420 / 420 419 / 419 170 / 170 Heparin 25,000 UNIT/500 ML D5W 100 / 100 51 / 51 60 / 60 25,000 unit In 500 ml @ 14 UNIT /KG/HR 22.596 mls/hr IVC . Q22H8M [facility] Rx#:[id number] Levophed 4 MG In Dextrose 5% 200 / 200 68 / 68 250 ML @ Per Protocol IVC CONT [facility] Rx#:[id number] Maxipime 1,000 MG In Water for 10 / 10 inj. (sterile) 10 ML @ 300 mls/ hr IVP Q8HR [facility] Rx#:[id number] Flagyl Premix 500 MG/100 ML 500 100 / 100 100 / 100 100 / 100 mg In 100 ml @ 100 mls/hr IVPB Q8HR [facility] Rx#:[id number] Potassium Chloride 20 mEq/100 200 / 200 mL 40 meq In 200 ml @ 100 mls/ hr IVPB Q1H PRN Rx#:[id number] Output: Urine 600 / 600 Wound Drainage 60 / 60 10 10 Right Upper Abdomen 60 60 Other: Weight 79.3 kg Blood Glucose* 146 190 125 Patient Weight 01/14/19 23:59 Weight 79.3 kg - General physical appearance no distress - Respiratory normal expansion, normal respiratory effort - Cardiovascular Cardiovascular exam: Present: RRR - Neurologic CN 2-12 grossly intact - Psychiatric oriented to time, oriented to person, oriented to place - Labs 01/14/19 02:30 01/14/19 08:30 Diabetes panel 01/14/19 01/14/19 Range/Units 02:30 08:30 Sodium 133 L (136-145) mEq/L Potassium 3.4 L 3.7 (3.5-5.1) mEq/L Chloride 95 L (98-107) mEq/L Carbon Dioxide 31 H (23-29) mEq/L BUN 28 H (8-23) mg/dL Creatinine 0.63 (0.60-1.20) mg/dL Glucose 160 H (70-105) mg/dL Calcium 8.8 (8.6-10.3) mg/dL AST 10 L (13-39) Units/L ALT 11 (7-52) Units/L Alkaline Phosphatase 33 L (34-104) Units/L Albumin 3.4 L (3.5-5.7) g/dL Calcium panel 01/14/19 Range/Units 02:30 Calcium 8.8 (8.6-10.3) mg/dL Albumin 3.4 L (3.5-5.7) g/dL Pituitary panel 01/14/19 01/14/19 Range/Units 02:30 08:30 Sodium 133 L (136-145) mEq/L Potassium 3.4 L 3.7 (3.5-5.1) mEq/L Chloride 95 L (98-107) mEq/L Carbon Dioxide 31 H (23-29) mEq/L BUN 28 H (8-23) mg/dL Creatinine 0.63 (0.60-1.20) mg/dL Glucose 160 H (70-105) mg/dL Calcium 8.8 (8.6-10.3) mg/dL Adrenal panel 01/14/19 01/14/19 Range/Units 02:30 08:30 Sodium 133 L (136-145) mEq/L Potassium 3.4 L 3.7 (3.5-5.1) mEq/L Chloride 95 L (98-107) mEq/L Carbon Dioxide 31 H (23-29) mEq/L BUN 28 H (8-23) mg/dL Creatinine 0.63 (0.60-1.20) mg/dL Glucose 160 H (70-105) mg/dL Calcium 8.8 (8.6-10.3) mg/dL Total Bilirubin 0.6 (0.3-1.0) mg/dL AST 10 L (13-39) Units/L ALT 11 (7-52) Units/L Alkaline Phosphatase 33 L (34-104) Units/L Albumin 3.4 L (3.5-5.7) g/dL Consult Discharge Plan - Plan Referrals: Maisha Ruth, INPATIENT CODER [Primary Care Provider] -
[2019-01-14] MEDS: Sucralfate 1 GM TABLET PO SCH ×3 (13:00→21:01)
[2019-01-14] MEDS: risperiDONE 1 MG TABLET PO SCH (20:04)
[2019-01-14] MEDS: Norepinephrine 4 MG in D5% in Water 250 ML IVC SCH (20:05)
[2019-01-14] MEDS: Levalbuterol Neb 1.25 MG/3 ML IH PRN (20:32)
[2019-01-14] MEDS: Heparin 25,000 UNIT/500 ML D5W 25,000 UNIT/500 ML BAG IVC SCH (23:06)
[2019-01-15 03:40] LABS: Basophils % 0.2 %; Hematocrit 30.6 % (35.3-44.9); Immature Granulocytes % 3.3 % (0-4); Lymphocytes # 0.4 K/mcL (0.6-4.6); Lymphocytes % 6.9 %; Mean Corpuscular HGB Conc 33.7 g/dL (31.6-35.5); Mean Corpuscular Hemoglobin 31.1 pg (28.0-33.3); Mean Corpuscular Volume 92.4 fL (83.0-100.0); Mean Platelet Volume 9.5 fL (9.4-12.4); Monocytes # 0.3 K/mcL (0.0-1.3); Monocytes % 6.2 %; Neutrophils # 4.6 K/mcL (1.6-8.9); Platelet Count 170 K/mcL (140-400); Red Blood Count 3.31 M/mcL (3.82-4.97); Red Cell Distribution Width 12.1 % (11.5-14.5); Segmented Neutrophils % 83.4 %
[2019-01-15 03:48] LABS: Hemoglobin 10.3 g/dL (11.5-15.4)
[2019-01-15 03:57] LABS: Alanine Aminotransferase 10 Units/L (7-52); Albumin/Globulin Ratio 1.7 (1.1-2.2); Alkaline Phosphatase 31 Units/L (34-104); Aspartate Amino Transferase 9 Units/L (13-39); BUN/Creatinine Ratio 35 (6-26); Bilirubin,Total 0.4 mg/dL (0.3-1.0); Blood Urea Nitrogen 23 mg/dL (8-23); Calcium 8.4 mg/dL (8.6-10.3); Carbon Dioxide 28 mEq/L (23-29); Chloride 99 mEq/L (98-107); Globulin 1.8 g/dL (2.4-3.5); Glucose 268 mg/dL (70-105); Magnesium 1.7 mg/dL (1.6-2.6); Osmolality,Calculated 289 (280-300); Phosphorous 2.4 mg/dL (2.7-4.5); Potassium 3.8 mEq/L (3.5-5.1); Sodium 133 mEq/L (136-145); Total Protein 4.8 g/dL (6.4-8.9); eGFR For Non-African Americans > 60 (> 60)
[2019-01-15] MEDS: Hydrocortisone Sodium Succ 100 MG/2 ML VIAL IVP SCH ×2 (04:57→11:22)
[2019-01-15] MEDS: Pantoprazole 40 MG VIAL IVP SCH (04:57)
--- NOTE | 2019-01-15 07:03 | Pulmonology Progress Note ---
<CkTereza cunha S - Last Filed: 01/15/19 12:25> Date of Encounter: 01/15/19 Objective PUL Vital signs: Last Vital Signs Temp 98.1 F 01/15/19 11:05 Pulse 114 01/15/19 11:00 Resp 16 01/15/19 11:00 BP 130/69 01/15/19 11:00 Pulse Ox 96 01/15/19 11:00 Results - Laboratory Findings CBC and BMP: 01/15/19 03:11 01/15/19 03:11 PT/INR, D-dimer PT 11.8 Seconds (9.4-12.1) 01/13/19 02:30 D-Dimer 1354 ng/mLFEU (0-500) H 01/07/19 19:29 Abnormal lab findings: Abnormal lab results RBC 3.31 M/mcL (3.82-4.97) L 01/15/19 03:11 Hgb 10.3 g/dL (11.5-15.4) L D 01/15/19 03:11 Hct 30.6 % (35.3-44.9) L 01/15/19 03:11 Lymphocytes # 0.4 K/mcL (0.6-4.6) L 01/15/19 03:11 APTT 60.1 Seconds (26.0-36.0) H 01/06/19 16:27 D-Dimer 1354 ng/mLFEU (0-500) H 01/07/19 19:29 Sodium 133 mEq/L (136-145) L 01/15/19 03:11 BUN/Creatinine Ratio 35 (6-26) H 01/15/19 03:11 Glucose 268 mg/dL (70-105) H 01/15/19 03:11 POC Glucose 244 mg/dL (70-99) H 01/14/19 18:41 Calcium 8.4 mg/dL (8.6-10.3) L 01/15/19 03:11 Venous Ioniz Calcium 1.12 mmol/L (1.15-1.35) L 01/09/19 06:02 Phosphorus 2.4 mg/dL (2.7-4.5) L 01/15/19 03:11 AST 9 Units/L (13-39) L 01/15/19 03:11 Alkaline Phosphatase 31 Units/L (34-104) L 01/15/19 03:11 B-Natriuretic Peptide 452 pg/mL (Less than 100) H 01/06/19 16:27 Serum Total Protein 4.8 g/dL (6.4-8.9) L 01/15/19 03:11 Albumin 3.0 g/dL (3.5-5.7) L 01/15/19 03:11 Globulin 1.8 g/dL (2.4-3.5) L 01/15/19 03:11 - Microbiology Findings Microbiology Findings: Microbiology, Last 48 Hours 01/13/19 14:45 Body Fluid Culture - Preliminary Gallbladder Fluid 01/13/19 14:45 Fungal Culture - Preliminary Gallbladder Fluid Culture is incubating. 01/13/19 14:45 Anaerobic Culture - Preliminary Gallbladder Fluid Culture is incubating. 01/08/19 08:25 Blood Culture - Final Peripheral Central Cath, Picc No growth. Final report. 01/08/19 08:29 Blood Culture - Final Peripheral Central Cath, Picc No growth. Final report. - Clinical Findings Intake & Output: Intake & Output 01/14/19 01/15/19 01/15/19 23:59 07:59 15:59 Intake Total 1120 / 1120 884 / 884 370 / 370 Output Total 905 / 905 320 / 320 Balance 215 / 215 564 / 564 350 / 350 Weight 84.1 kg Consult Discharge Plan - Plan Instructions: [facility] ([place]) Referrals: Maisha Ruth, HISTOLOGICAL ILLUSTRATOR [Primary Care Provider] - - Attending Attestation - Attending Attestation I saw and evaluated this patient and my medical decision-making was reviewed with the Resident Physician. I agree with the documented findings, disposition and treatment plan as described except to the extent set forth below. We independently had [id number] contact with the patient Patient seen and examined at bedside Labs, radiology, chart personally reviewed. Management was reviewed during multidisciplinary critical care rounds. PEANUT SEPARATOR: Patient is conscious oriented 3 no evidence of toxic/metabolic encephalopathy no evidence of cerebrovascular accident Pulm: Patient is acceptable V/Q mismatch patient has stage IV squamous cell carcinoma of lung waiting for outpatient chemotherapy cannot be started now with his underlying possible sepsis due to biliary source she is getting better Cards: Patient was hypotensive most likely due to possible intra-abdominal sepsis versus related adrenal insufficiency to continue IV hydrocortisone start liberating it from today. FEN-GI: Advance diet as tolerated. Renal: Labs and output were reviewed ID: To continue broad-spectrum coverage cultures are negative we will put a stop date for this antibiotics patient is currently having good clinical response Heme/Onc: Labs reviewed Endo: Glucose Monitored . Patient most likely have relative adrenal insufficiency since the random cortisol is so low suspect primary/secondary adrenal insufficiency will need ACTH stimulation test after stoppage off IV hydrocortisone 24 hours after the last dose will start liberating the IV hydrocortisone today Integ/MSK: Skin Care per routine ICU Nursing Protocol to prevent ulcers. Lines: All lines examined without evidence of infection : Dispo: Transfer to medical telemetry CODE:Full Code <Cele Pugh N - Last Filed: 01/15/19 13:16> Date of Encounter: 01/15/19 Time of Encounter: 07:03 Assessment and Plan (1) Hypotension Current Visit: Yes Status: Acute Patient has been off pressor support for >24hours, and BP this morning has been WNL. - Continue close monitoring of blood pressures. Consider additional fluid boluses if needed. - Taper hydrocortisone over the next few days - patient has been on steroid therapy for 10 days. Decreased to 50mg Q12H. - Consider ACTH stimulation test folowing resolution of acute problems. Qualifiers: Hypotension type: unspecified hypotension type Qualified Code(s): I95.9 - Hypotension, unspecified (2) Biliary colic Current Visit: Yes Status: Acute Long history of biliary colic, with recurrent episodes of nausea, vomiting, and diarrhea. Patient did have a general surgery consult with Dr. Patricia during her last admission. Per his consult note on 12/15/2018, patient may be appropriate candidate for laparoscopic cholecystectomy; however, she has multiple comorbidities, including newly diagnosed lung cancer, that would need to be assessed and managed first. Surgery consult was placed on 01/07/2019; however, lorena bhandari has not been evaluated by surgery during this admission. CT of the abdomen and pelvis performed in the ED was significant for cholelithiasis and some pericholecystic fluid suggesting acute cholecystitis; however, gallbladder or ultrasound negative for signs of acute cholecystitis. Additionally, patient has remained afebrile with normal white count throughout this admission. Patient was evaluated by surgery team, with recommendations for percutaneous cholecystostomy tube placement by interventional radiology team. Patient was evaluated by IR team, who recommended HIDA scan prior to invasive therapies. HIDA scan was consistent with acute cholecystitis. Percutaneous cholecystostomy tube placed yesterday but IR team. Patient reports complete resolution of abdominal pain and nausea, and is tolerating PO intake well. - Day 2 s/p cholecystostomy tube placement. Appreciate ongoing surgery evaluations and recommendations. - D/c antibiotic therapy. Patient received 8 days of cefepime + flagyl. - Follow up surgery as directed in approximately 2 weeks. (3) Anxiety Current Visit: Yes Status: Acute - Continue home medications of celexa 40mg daily and klonopin 1mg QID PRN. 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 - Recommend hold on port placement and chemotherapy initiation pending resolution of hypertension and tachycardia. - Recommend outpatient followup with hematology/oncology after hospital discharge. Qualifiers: Laterality: unspecified laterality Qualified Code(s): C34.90 - Malignant neoplasm of unspecified part of unspecified bronchus or lung Subjective Principal diagnosis: Hypotension Interval history: Patient was seen evaluated at the bedside. She reports complete resolution of her abdominal pain and nausea since placement of percutaneous cholecystostomy tube on 01/13/2019. She reports that she continued to tolerate PO intake without issue. BP is much improved today, and patient has not required pressor support in >24 hours. Patient denies any acute complaints or concerns at this time. Objective PUL Vital signs: Last Vital Signs Temp 97.7 F 01/15/19 06:49 Pulse 112 01/15/19 06:01 Resp 16 01/15/19 06:01 BP 107/79 01/15/19 06:01 Pulse Ox 96 01/15/19 06:01 General appearance: no acute distress, alert Eyes: nonicteric ENT: oropharynx moist Auscultation: bilateral: diminished breath sounds Cardiovascular: regular rate and rhythm (sinus tachycardia) Gastrointestinal: soft, non-tender, non-distended Integumentary: normal Extremities: no cyanosis, no edema, no clubbing normal mental status, non-focal exam mood appropriate, affect normal Results - Laboratory Findings CBC and BMP: 01/15/19 03:11 01/15/19 03:11 PT/INR, D-dimer PT 11.8 Seconds (9.4-12.1) 01/13/19 02:30 D-Dimer 1354 ng/mLFEU (0-500) H 01/07/19 19:29 Abnormal lab findings: Abnormal lab results RBC 3.31 M/mcL (3.82-4.97) L 01/15/19 03:11 Hgb 10.3 g/dL (11.5-15.4) L D 01/15/19 03:11 Hct 30.6 % (35.3-44.9) L 01/15/19 03:11 Lymphocytes # 0.4 K/mcL (0.6-4.6) L 01/15/19 03:11 APTT 60.1 Seconds (26.0-36.0) H 01/06/19 16:27 D-Dimer 1354 ng/mLFEU (0-500) H 01/07/19 19:29 Sodium 133 mEq/L (136-145) L 01/15/19 03:11 BUN/Creatinine Ratio 35 (6-26) H 01/15/19 03:11 Glucose 268 mg/dL (70-105) H 01/15/19 03:11 POC Glucose 244 mg/dL (70-99) H 01/14/19 18:41 Calcium 8.4 mg/dL (8.6-10.3) L 01/15/19 03:11 Venous Ioniz Calcium 1.12 mmol/L (1.15-1.35) L 01/09/19 06:02 Phosphorus 2.4 mg/dL (2.7-4.5) L 01/15/19 03:11 AST 9 Units/L (13-39) L 01/15/19 03:11 Alkaline Phosphatase 31 Units/L (34-104) L 01/15/19 03:11 B-Natriuretic Peptide 452 pg/mL (Less than 100) H 01/06/19 16:27 Serum Total Protein 4.8 g/dL (6.4-8.9) L 01/15/19 03:11 Albumin 3.0 g/dL (3.5-5.7) L 01/15/19 03:11 Globulin 1.8 g/dL (2.4-3.5) L 01/15/19 03:11 - Microbiology Findings Microbiology Findings: Microbiology, Last 48 Hours 01/13/19 14:45 Body Fluid Culture - Preliminary Gallbladder Fluid 01/13/19 14:45 Fungal Culture - Preliminary Gallbladder Fluid Culture is incubating. 01/13/19 14:45 Anaerobic Culture - Preliminary Gallbladder Fluid Culture is incubating. 01/08/19 08:25 Blood Culture - Final Peripheral Central Cath, Picc No growth. Final report. 01/08/19 08:29 Blood Culture - Final Peripheral Central Cath, Picc No growth. Final report. - Clinical Findings Intake & Output: Intake & Output 01/14/19 01/14/19 01/15/19 15:59 23:59 07:59 Intake Total 1650 / 1650 1120 / 1120 884 / 884 Output Total 1020 / 1020 905 / 905 320 / 320 Balance 630 / 630 215 / 215 564 / 564 Weight 84.1 kg
[2019-01-15] MEDS: Aspirin Enteric Coated 81 MG Tablet PO SCH (07:50)
[2019-01-15] MEDS: lamoTRIgine 25 MG TABLET PO SCH ×2 (07:50→21:20)
[2019-01-15] MEDS: Cefepime HCl 1,000 MG in Water for inj. (sterile) 20 ML 10 ML IVP SCH (07:50)
[2019-01-15] MEDS: Sucralfate 1 GM TABLET PO SCH ×5 (07:50→21:19)
[2019-01-15] MEDS: MetroNIDAZOLE 500 MG/100 ML 500 MG/100 ML BAG IVPB SCH (07:51)
[2019-01-15] MEDS: Phenylephrine 50 MG in D5% in Water 250 ML IVC SCH (07:52)
[2019-01-15] MEDS: Insulin LISPRO 300 UNITS/3 ML VIAL SQ SCH ×3 (07:53→18:08)
[2019-01-15] MEDS: clonazePAM 1 MG TABLET PO PRN ×3 (08:08→21:39)
--- NOTE | 2019-01-15 09:43 | General Surgery Progress Note ---
<Tammi Meneses - Last Filed: 01/15/19 09:41> Date of Encounter: 01/15/19 Time of Encounter: 08:55 - Assessment and Plan (1) Symptomatic cholelithiasis Status: Acute CT abd/pelvis shows cholelithiasis with probable gallbladder sludge. RUQ ultrasound shows gallstone and gallbladder sludge. No acute cholecystitis. Hepatic panel is unremarkable. HIDA scan shows non-visualization of gallbladder, indicating acute cholecystitis or severe chronic cystic duct narrowing POD#2 percutaneous cholecystectomy on 01/13/19. Patient feeling 100% better. No more abd pain or nausea. Tolerating regular diet well. No acute surgery. Surgery will sign off at this time. Followup with Dr. Jackson in 2 weeks. Subjective Narrative: Patient seen and examined. Percutaneous cholecystostomy placed 2 days ago. Patient is sitting in chair eating breakfast. Patient states shes doing okay. No more abdominal pain or nausea since cholecystostomy tube was placed. Tolerating regular diet well. Denies any other complaints. Objective Vital Signs - Last 8 Hours Temp Pulse Resp BP Pulse Ox 01/15/19 09:00 117 15 177/112 96 01/15/19 08:00 117 15 186/87 96 01/15/19 07:00 112 11 147/74 96 01/15/19 06:49 97.7 F 01/15/19 06:01 112 16 107/79 96 01/15/19 05:00 109 14 77/56 96 01/15/19 04:33 97.7 F 01/15/19 04:00 110 15 73/48 94 01/15/19 03:00 112 15 83/62 94 01/15/19 02:02 111 01/15/19 02:00 111 17 81/55 94 Intake and Output 01/14/19 01/15/19 01/15/19 23:59 07:59 15:59 Intake Total 1120 / 1120 884 / 884 Output Total 905 / 905 320 / 320 Balance 215 / 215 564 / 564 Intake: IV Fluids 1120 / 1120 684 / 684 Heparin 25,000 UNIT/500 ML D5W 230 / 230 25,000 unit In 500 ml @ 14 UNIT /KG/HR 22.596 mls/hr IVC . Q22H8M [facility] Rx#:[id number] Lactated Ringers 1,000 ML @ 500 1000 / 1000 mls/hr IVC .Q2H [facility] Rx#: [id number] Maxipime 1,000 MG In Water for inj. (sterile) 10 ML @ 300 mls/ hr IVP Q8HR [facility] Rx#:[id number] ALBURX 5% 12.5 gm In 250 ml @ 250 / 250 60 mls/hr IVPB ONCE [facility] Rx#: [id number] Magnesium Sulfate 2 GM In 0.9 % 104 / 104 Sodium Chloride 100 ML @ 52 mls/hr IVPB Q6H [facility]N Rx#: [id number] Flagyl Premix 500 MG/100 ML 500 100 / 100 100 / 100 mg In 100 ml @ 100 mls/hr IVPB Q8HR [facility] Rx#:[id number] Oral 200 / 200 Output: Urine 900 / 900 300 / 300 Wound Drainage Right Upper Abdomen Other: Weight 84.1 kg Blood Glucose* 240 - Additional Exam VITAL SIGNS: Reviewed. See [facility] GENERAL: In no apparent distress. HEENT: Normocephalic, atraumatic, pupils are equal and reactive, extraocular motions intact, oral mucosa is pink and moist. CHEST/RESPIRATORY: The thorax is free from signs of trauma. Lung sounds: clear to auscultation, normal respiratory effort CARDIAC: Regular rate and rhythm. Tachycardia. Normal S1 and S2, without murmurs, gallops, or rubs. VASCULAR: No Edema. ABDOMEN: soft, nondistended, nontender, bowel sounds present. Ecchymoses from he lam injections are noted at lower abdomen. WOUNDS/DRAINS: RUQ GILLIAN drain site isWNL. There is dark brown drainage in the GILLIAN bulb MUSCULOSKELETAL: Good range of motion of all major joints. Extremities without clubbing, cyanosis or edema. NEUROLOGIC EXAM: Alert and oriented x 3. Speech normal. Follows commands. PSYCHIATRIC: Mood normal. SKIN: No rash or lesions. - Labs 01/15/19 03:11 01/15/19 03:11 Diabetes panel 01/15/19 Range/Units 03:11 Sodium 133 L (136-145) mEq/L Potassium 3.8 (3.5-5.1) mEq/L Chloride 99 (98-107) mEq/L Carbon Dioxide 28 (23-29) mEq/L BUN 23 (8-23) mg/dL Creatinine 0.66 (0.60-1.20) mg/dL Glucose 268 H (70-105) mg/dL Calcium 8.4 L (8.6-10.3) mg/dL AST 9 L (13-39) Units/L ALT 10 (7-52) Units/L Alkaline Phosphatase 31 L (34-104) Units/L Albumin 3.0 L (3.5-5.7) g/dL Calcium panel 01/15/19 Range/Units 03:11 Calcium 8.4 L (8.6-10.3) mg/dL Phosphorus 2.4 L (2.7-4.5) mg/dL Albumin 3.0 L (3.5-5.7) g/dL Pituitary panel 01/15/19 Range/Units 03:11 Sodium 133 L (136-145) mEq/L Potassium 3.8 (3.5-5.1) mEq/L Chloride 99 (98-107) mEq/L Carbon Dioxide 28 (23-29) mEq/L BUN 23 (8-23) mg/dL Creatinine 0.66 (0.60-1.20) mg/dL Glucose 268 H (70-105) mg/dL Calcium 8.4 L (8.6-10.3) mg/dL Adrenal panel 01/15/19 Range/Units 03:11 Sodium 133 L (136-145) mEq/L Potassium 3.8 (3.5-5.1) mEq/L Chloride 99 (98-107) mEq/L Carbon Dioxide 28 (23-29) mEq/L BUN 23 (8-23) mg/dL Creatinine 0.66 (0.60-1.20) mg/dL Glucose 268 H (70-105) mg/dL Calcium 8.4 L (8.6-10.3) mg/dL Total Bilirubin 0.4 (0.3-1.0) mg/dL AST 9 L (13-39) Units/L ALT 10 (7-52) Units/L Alkaline Phosphatase 31 L (34-104) Units/L Albumin 3.0 L (3.5-5.7) g/dL Consult Discharge Plan - Plan Instructions: [facility] ([place]) Referrals: Maisha Ruth, COMBAT CONTROL [Primary Care Provider] - (PLEASE CALL FRIDAY MORNING AND SCHEDULE A HOSPITAL FOLLOW UP FOR 5-7 DAYS OUT. THANK YOU!) Prescriptions: Apixaban [Eliquis] 5 mg PO BID 30 Days #60 tablet Apixaban [Eliquis] 10 mg PO BID 7 Days #14 tablet RX: Dexamethasone 6 mg PO DAILY 30 Days #30 tablet RX: Sucralfate [Carafate] 1 gm PO QIDAC 30 Days #90 tablet <Yonatan Rincon - Last Filed: 01/18/19 08:33> Date of Encounter: 01/18/19 - Assessment and Plan (1) Cholelithiasis Status: Acute Qualifiers: Cholelithiasis location: gallbladder Cholecystitis presence: without cholecystitis Biliary obstruction: without biliary obstruction Qualified Code(s): K80.20 - Calculus of gallbladder without cholecystitis without obstruction Objective - Labs 01/15/19 03:11 01/15/19 03:11 - Attending Attestation I have personally seen and examined the patient. I have reviewed pertinent labs, imaging, progress notes, including this one. I have discussed the plan in thorough detail with the resident and nurse practitioner. I agree with the above assessment and plan..
[2019-01-15] MEDS: Budesonide/Formoterol 160/4.5 1 PUFF INH IH SCH ×2 (10:39→19:30)
[2019-01-15] MEDS: Levalbuterol Neb 1.25 MG/3 ML IH PRN ×2 (10:43→19:30)
[2019-01-15] MEDS ORDERED: *HR* Enoxaparin 80 MG/0.8 ML SYRINGE SQ SCH (10:45)
[2019-01-15] MEDS ORDERED: Dextrose 4 GM Chewable Tablets PO PRN ×2 (16:22)
[2019-01-15] MEDS ORDERED: Dextrose Gel 15 GM/37.5 ML TUBE PO PRN ×2 (16:22)
[2019-01-15] MEDS ORDERED: *HR* Promethazine 25 MG/ML VIAL IVP PRN (16:22)
[2019-01-15] MEDS ORDERED: OXYCODONE Oral CONC 10 MG/0.5 ML ORAL.SYG SL PRN (16:22)
[2019-01-15] MEDS ORDERED: Naloxone 0.4 MG/ML INJ IVP PRN (16:22)
[2019-01-15] MEDS ORDERED: D5% in Water 1,000 ML IVC PRN (16:22)
[2019-01-15] MEDS ORDERED: *HR* Dextrose 50 % in Water (Syg) 50 ML SYRINGE IVP PRN (16:22)
[2019-01-15] MEDS: *HR* Enoxaparin 80 MG/0.8 ML SYRINGE SQ SCH (18:07)
[2019-01-15] MEDS ORDERED: Insulin LISPRO 300 UNITS/3 ML VIAL SQ SCH (21:00)
[2019-01-15] MEDS ORDERED: risperiDONE 1 MG TABLET PO SCH (21:00)
[2019-01-15] MEDS ORDERED: Hydrocortisone Sodium Succ 100 MG/2 ML VIAL IVP SCH (21:00)
[2019-01-16] MEDS: Hydrocortisone Sodium Succ 100 MG/2 ML VIAL IVP SCH ×2 (00:01→12:44)
[2019-01-16] MEDS: *HR* Enoxaparin 80 MG/0.8 ML SYRINGE SQ SCH (06:56)
[2019-01-16] MEDS: Budesonide/Formoterol 160/4.5 1 PUFF INH IH SCH (07:38)
[2019-01-16] MEDS: Levalbuterol Neb 1.25 MG/3 ML IH PRN (07:39)
[2019-01-16] MEDS ORDERED: Aspirin Enteric Coated 81 MG Tablet PO SCH (09:00)
[2019-01-16] MEDS: clonazePAM 1 MG TABLET PO PRN (10:39)
[2019-01-16] MEDS: lamoTRIgine 25 MG TABLET PO SCH (10:39)
[2019-01-16] MEDS: Insulin LISPRO 300 UNITS/3 ML VIAL SQ SCH ×2 (10:40→12:44)
[2019-01-16] MEDS: Sucralfate 1 GM TABLET PO SCH ×2 (10:40→12:44)
[2019-01-16 11:40] VITALS: BP 110/71
--- NOTE | 2019-01-16 11:43 | Discharge Summary ---
- NOTES TO OUTPATIENT PROVIDER Notes to Outpatient Provider: Follow up with Dr. Jackson in 2 weeks. Make an appointment to see an wire stripper within 1-2 week of hospital discharge due low cortisol. Orders not resulted at time of discharge: Pending orders 01/08/19 07:58 Culture,Sputum with Gram Stain [RM] Stat 01/10/19 11:40 Culture,Anaerobic [RM] Routine Culture,Body Fluid [RM] Routine Fungal Culture [MYC] Routine 01/11/19 14:56 CL Cardiac Catheterization [CL] Routine Date of Encounter: 01/16/19 Time of Encounter: 11:40 - Discharge Diagnosis (1) Hypotension Priority: Primary Status: Resolved Qualifiers: Hypotension type: unspecified hypotension type Qualified Code(s): I95.9 - Hypotension, unspecified (2) Biliary colic Priority: Secondary Status: Acute Assessment and Plan: s/p cholecistectomy (3) Squamous cell carcinoma of lung, stage IV Priority: Secondary Status: Chronic Qualifiers: Laterality: unspecified laterality Qualified Code(s): C34.90 - Malignant neoplasm of unspecified part of unspecified bronchus or lung (4) Anxiety Priority: Secondary Status: Acute (5) Adrenal insufficiency Priority: Secondary Status: Acute Assessment and Plan: patient found to be hypotensive with low cortisol level despite being on methyl- prednisolone IV. Possible acute adrenal insufficiency (6) Bipolar disorder Priority: Secondary Status: Chronic Qualifiers: Active/Remission status: remission status unspecified Qualified Code(s): F31.9 - Bipolar disorder, unspecified (7) CAD in [place] artery Priority: Secondary Status: Chronic (8) Diabetes mellitus Priority: Secondary Status: Chronic Qualifiers: Diabetes mellitus type: type 2 Diabetes mellitus usp insulin use: without salvage determiner use Diabetes mellitus complication status: with unspecified complications Qualified Code(s): E11.8 - Type 2 diabetes mellitus with unspecified complications (9) HLD (hyperlipidemia) Priority: Secondary Status: Chronic Qualifiers: Hyperlipidemia type: unspecified Qualified Code(s): E78.5 - Hyperlipidemia, unspecified (10) Pulmonary embolism Priority: Secondary Status: Acute Qualifiers: Pulmonary embolism type: other Chronicity: acute Acute cor pulmonale presence: without acute cor pulmonale Qualified Code(s): I26.99 - Other pulmonary embolism without acute cor pulmonale Hospital course: Ms. Mace is a 63 year old female history of COPD, CHF, chronic abdominal pain secondary to gallbladder, and stage IV squamous cell carcinoma of the lungs with bilateral metastatic pulmonary nodules who arrives to the emergency department multiple complaints. Patient reported sudden shortness of breath. She also reported abdominal pain on presentation. CT abd/Pelvis done: IMPRESSION: 1. Cholelithiasis. There now appears to be some pericholecystic fluid suggesting acute cholecystitis. A CTA of the chest done: Suboptimal opacification of pulmonary arteries limiting evaluation for pulmonary emboli. Persistent right suprahilar-right paratracheal soft tissue mass suspicious for malignancy with subsequent obstruction right upper lobe bronchus and near complete collapse and consolidation right upper lobe. Patient was admitted to the hospital due to COPD, acute cholecystitis and PE. Managed with bronchodilators and empiric IV antibiotics. started on full dose anticoagulation. and Surgery consulted. During the hospitalization patient became hypotensive, which was resistant to IV hydration for which the patient was transferred to the intensive care unit for vasopressor support. As part of the work up for the hypotension the cortisol level checked and found to be low for which the patient was started on hydrocortisone. Blood culture: no growth final report. Patient hypotension resolved. Patient underwent cholecystostomy tube placement by IR, surgery recommended to follow up with them in 2 weeks as outpatient. Patient acute symptoms have resolved. Patient was evaluated by Pt/OT and recommended rehab but the patient refused and wanted to go home with services. Patient is being discharged on full dose anticoagulation, recommended to follow up with her oncologist for outpatient management. Recommended to follow up with pulm and endocrinology to be tapered off steroids. - Time Spent with Patient Total time spent providing and/or coordinating discharge services: Greater than 30 minutes (45) - Discharge Medications Prescriptions: New Dexamethasone 6 mg PO DAILY 30 Days #30 tablet Sucralfate [Carafate] 1 gm PO QIDAC 30 Days #90 tablet Apixaban [Eliquis] 10 mg PO BID 7 Days #14 tablet Apixaban [Eliquis] 5 mg PO BID 30 Days #60 tablet Continue Doxepin [Sinequan] 75 mg PO HS lamoTRIgine [Lamictal Xr] 100 mg PO DAILY Clopidogrel [Plavix] 75 mg PO DAILY Citalopram [CeleXA] 40 mg PO DAILY Simvastatin [Zocor] 40 mg PO HS Aspirin [Lo-Dose Aspirin EC] 81 mg PO DAILY Lipase/Protease/Amylase [Maryann Wilks 3,000 Units Capsule] 8 each PO TIDWM clonazePAM [Clonazepam] 1 mg PO QID PRN PRN Reason: Anxiety Budesonide/Formoterol 160/4.5 [Symbicort 160/4.5] 2 puff IH BIDR risperiDONE [Risperidone] 1 mg PO HS metFORMIN [Glucophage] 500 mg PO HS Zolpidem [Ambien] 10 mg PO HS Cyclobenzaprine [Flexeril] 10 mg PO DAILY PRN PRN Reason: Muscle Spasm Cilostazol [Pletal] 100 mg PO BID HYDROcodone/Acet 7.5/325 mg [[place] 7.5-325 mg] 1 tab PO Q6H PRN PRN Reason: Pain Home Medications: Budesonide/Formoterol 160/4.5 [Symbicort 160/4.5] 2 puff IH BIDR 12/14/18 [History] Cilostazol [Pletal] 100 mg PO BID 12/14/18 [History] Cyclobenzaprine [Flexeril] 10 mg PO DAILY PRN 12/14/18 [History] HYDROcodone/Acet 7.5/325 mg [[place] 7.5-325 mg] 1 tab PO Q6H PRN 12/14/18 [History] Zolpidem [Ambien] 10 mg PO HS 12/14/18 [History] clonazePAM [Clonazepam] 1 mg PO QID PRN 12/14/18 [History] metFORMIN [Glucophage] 500 mg PO HS 12/14/18 [History] risperiDONE [Risperidone] 1 mg PO HS 12/14/18 [History] Citalopram [CeleXA] 40 mg PO DAILY 12/15/18 [History] Clopidogrel [Plavix] 75 mg PO DAILY 12/15/18 [History] Doxepin [Sinequan] 75 mg PO HS 12/15/18 [History] Simvastatin [Zocor] 40 mg PO HS 12/15/18 [History] lamoTRIgine [Lamictal Xr] 100 mg PO DAILY 12/15/18 [History] Aspirin [Lo-Dose Aspirin EC] 81 mg PO DAILY 01/05/19 [History] Lipase/Protease/Amylase [Maryann Wilks 3,000 Units Capsule] 8 each PO TIDWM 01/07/19 [History] Apixaban [Eliquis] 5 mg PO BID 30 Days #60 tablet 01/16/19 [Rx] Apixaban [Eliquis] 10 mg PO BID 7 Days #14 tablet 01/16/19 [Rx] Dexamethasone 6 mg PO DAILY 30 Days #30 tablet 01/16/19 [Rx] Sucralfate [Carafate] 1 gm PO QIDAC 30 Days #90 tablet 01/16/19 [Rx] Allergies/Adverse Reactions: Allergy/AdvReac Type Severity Reaction Status Date / Time Penicillins Allergy Hives Verified 01/05/19 13:25 Date of admission: 01/08/19 16:31 Primary care physician: Maisha Ruth CNP Consults: 01/06/19 20:50 Consult to Nurse Navigator [CONS] Routine Comment: 01/07/19 10:51 Consult to Surgery [CONS] Stat Consulting Provider: Grover Noel Reason for Consult: stones Time Notified: 10:51 Call Completed: No 01/07/19 14:07 Consult to Pulmonology [CONS] Stat Consulting Provider: [facility] [place] Reason for Consult: low bp Time Notified: 14:08 Call Completed: Yes 01/10/19 10:27 Consult to Surgery [CONS] Routine Consulting Provider: Won Elizondo Reason for Consult: RUQ tenderness, Nausea; Cholelithiasis on CT w pericholecystic inflammation Call Completed: Yes 01/10/19 11:36 Consult to Interventional Radiology [CONS] Routine Consulting Provider: Radiology Inter[facility] [place] Reason for Consult: need percut cholecystostomy tube patient with new dx PE, on heparin drip, please coordinate time with icu nurse to stop heparin 3 hrs prior to procedure Time Notified: 11:38 Call Completed: Yes 01/11/19 08:18 Consult to Cardiology [CONS] Routine Comment: Consulting Provider: Cardiology [place] Reason for Consult: persistent tachycardia; inititally hypotension requiring pressors, now hypertensive Time Notified: 08:19 Call Completed: Yes 01/11/19 10:07 Consult to Nurse Navigator [CONS] Routine Comment: copd 01/12/19 10:49 Consult to Occupational Therapy [CONS] Routine Comment: Evaluate, develop and implement POC Reason for Consult: weakness; patient can do therapy as long as vitals are monitored Does patient have active BEDREST order?: No Is patient medically & hemodynamically stable?: Yes Patient assessed for mobility or mobilized this visit?: Yes Consult to Physical Therapy [CONS] Routine Comment: Evaluate, develop and implement POC Reason for Consult: weakness; patient can do therapy as long as vitals are monitored Does patient have active BEDREST order?: No Is patient medically & hemodynamically stable?: Yes Patient assessed for mobility or mobilized this visit?: Yes - Constitutional Vitals: Temp Pulse Resp BP Pulse Ox 98.0 F 108 16 109/74 97 01/16/19 07:39 01/16/19 07:39 01/16/19 07:48 01/16/19 07:39 01/16/19 07:48 Exam: Vitals: Reviewed General: Alert and oriented x4. In no distress Skin: Normal color, no rash, no lesions. HEENT: EOM, pupils equal, round and reactive. Cardiovascular: RRR, normal S1 & S2, no rubs, murmurs or gallops. Lungs: CTA b/l, no wheezes or crackles. Abdomen: Obese, soft, non-tender, no rigidity. cholecystostomy tube in the RUQ. Extremities: clear port on the left upper chest. Neurological: Normal cognition and motor skills. Pulses:Carotid and radial pulses normal +2. Rest of the physical exam is non contributory - Patient Status Disposition: Home Health Service Condition: Good Functional capacity at discharge: uses cane/walker Overall status at discharge: patient is progressing back to baseline - Discharge Instructions Instructions: [facility] (DC) Follow Up With: Maisha Ruth, PERSONAL [employer]ES INSURANCE ADVISOR [Primary Care Provider] - - Diet and Activity Activity: as per physical therapy Diet: diabetic diet, low salt diet
--- NOTE | 2019-01-16 12:14 | Physician Discharge Referral ---
Home Health/Hosp Referral Info Transfer to: Home Health - Diagnosis (1) Hypotension Priority: Primary Status: Resolved (2) Biliary colic Priority: Secondary Status: Acute (3) Squamous cell carcinoma of lung, stage IV Priority: Secondary Status: Chronic (4) Anxiety Priority: Secondary Status: Acute (5) Adrenal insufficiency Priority: Secondary Status: Acute (6) Bipolar disorder Priority: Secondary Status: Chronic (7) CAD in [place] artery Priority: Secondary Status: Chronic (8) Diabetes mellitus Priority: Secondary Status: Chronic (9) HLD (hyperlipidemia) Priority: Secondary Status: Chronic (10) Pulmonary embolism Priority: Secondary Status: Acute - Respiratory Orders Oxygen / L per min (2 litters) Smoking Cessation: Smoking cessation has been advised. For more information, call the [place] Tobacco Quit Line at 6-215-AFKK-NOW. - Diet/Nutrition Diet/Nutrition Orders: Regular - Activity Activity Orders: Ambulate - Services Needed Following services are medically necessary services: Nursing, Home Health Aide, Physical Therapy, Occupational Therapy - Transfer Medications Prescriptions: Dexamethasone 6 mg PO DAILY 30 Days #30 tablet Rivaroxaban [Xarelto] 15 mg PO BID 21 Days #42 tablet Sucralfate [Carafate] 1 gm PO QIDAC 30 Days #90 tablet Home Medications: Budesonide/Formoterol 160/4.5 [Symbicort 160/4.5] 2 puff IH BIDR 12/14/18 [History] Cilostazol [Pletal] 100 mg PO BID 12/14/18 [History] Cyclobenzaprine [Flexeril] 10 mg PO DAILY PRN 12/14/18 [History] HYDROcodone/Acet 7.5/325 mg [[place] 7.5-325 mg] 1 tab PO Q6H PRN 12/14/18 [History] Zolpidem [Ambien] 10 mg PO HS 12/14/18 [History] clonazePAM [Clonazepam] 1 mg PO QID PRN 12/14/18 [History] metFORMIN [Glucophage] 500 mg PO HS 12/14/18 [History] risperiDONE [Risperidone] 1 mg PO HS 12/14/18 [History] Citalopram [CeleXA] 40 mg PO DAILY 12/15/18 [History] Clopidogrel [Plavix] 75 mg PO DAILY 12/15/18 [History] Doxepin [Sinequan] 75 mg PO HS 12/15/18 [History] Simvastatin [Zocor] 40 mg PO HS 12/15/18 [History] lamoTRIgine [Lamictal Xr] 100 mg PO DAILY 12/15/18 [History] Aspirin [Lo-Dose Aspirin EC] 81 mg PO DAILY 01/05/19 [History] Lipase/Protease/Amylase [Creon Dr 3,000 Units Capsule] 8 each PO TIDWM 01/07/19 [History] Dexamethasone 6 mg PO DAILY 30 Days #30 tablet 01/16/19 [Rx] Rivaroxaban [Xarelto] 15 mg PO BID 21 Days #42 tablet 01/16/19 [Rx] Sucralfate [Carafate] 1 gm PO QIDAC 30 Days #90 tablet 01/16/19 [Rx] Allergies/Adverse Reactions: Allergy/AdvReac Type Severity Reaction Status Date / Time Penicillins Allergy Hives Verified 01/05/19 13:25 Certification: Further, I certify that my clinical findings support that this patient is homebound (i.e. absences from home require considerable and taxing effort and are for medical reasons or spiritism services or infrequently or short duration when for other reasons) because: Homebound Reason: Patient requires assistance of a person or device to safely leave home Attestation: My signature below is to certify that this patient is under my care and that I, or nurse practitioner, or a physician's geriatric assistant working with me, has a [id number] encounter with this patient.
== END 2019-01-16 13:50 | disposition home health service (06) | DRG 444 ==
LOC: 2ANU 15:41 → EMEROOARM 15:41 → SUATTDRO 21:04 → 2ANU 22:28 → ICNU 01-07 22:29 → 2ANU 01-15 14:13
PROVIDERS: ADMIT Internal Medicine; ATTEND Hospitalist

== ENCOUNTER 2019-03-22 16:02 | Inpatient (IN) ==
[2019-03-22] MEDS ORDERED: Naloxone 0.4 MG/ML INJ IVP PRN (19:56)
[2019-03-22] MEDS ORDERED: Ondansetron 4 MG/2 ML VIAL IVP PRN (19:56)
[2019-03-22] MEDS ORDERED: 0.9 % Sodium Chloride 1,000 ML IVC SCH (20:00)
[2019-03-22] MEDS ORDERED: *HR* Dextrose 50 % in Water (Syg) 50 ML SYRINGE IVP PRN (20:00)
[2019-03-22] MEDS ORDERED: D5% in Water 1,000 ML IVC PRN (20:00)
[2019-03-22] MEDS ORDERED: Dextrose Gel 15 GM/37.5 ML TUBE PO PRN ×2 (20:00)
--- NOTE | 2019-03-22 20:15 | Internal Med History&Physical ---
Date of Encounter: 03/22/19 Time of Encounter: 20:15 Internal Medicine - H&P: HPI Chief complaint: Abdominal Pain History of present illness: Ms. Mace is a 63 year old female with a past medical history of stage IV squamous cell carcinoma of the lung, diabetes, CAD, hyperlipidemia, PE on Eliquis, and COPD who presented to [facility] due to right lower quadra nt abdominal pain. Patient reports that she has been having problems with her gallbladder and had a cholecystostomy tube placed in December of this year. Patient reports that the tube was recently removed proximally 2 weeks ago and since then has been having intermittent right lower quadrant pain described as a dull ache, nonradiating which became significantly intense last night. Pain seems to be aggravated with food. Patient has been nauseous but no reports of vomiting. She reports several episodes of loose stools. Laboratory workup at [place] revealed a leukocytosis of 16.7 with a normal lactic acid. She was also mildly hypokalemic with a potassium of 2.7. CT scan of the abdomen performed at [facility] showed findings suspicious for acute cholecystitis with gallstones and marked gallbladder wall thickening. On arrival patient was afebrile, mildly tachycardic with a blood pressure 100/71. She was saturating 99% on her home oxygen of 3 L. On my assessment patient appeared to be septic, was nauseous and complaining of right lower quadrant pain. Patient did have wheezing on lung examination. Patient was started on IV fluids and antiemetics. Labs were repeated which showed a decline in her potassium down to 2.3. By mouth as well as IV potassium was given. Blood pressure remained soft and a fluid bolus was given as well. Surgery has been consult and will evaluate the patient in the morning. Past Med Surg Social Fam HX - Past Medical History Medical history: cancer, CHF, COPD, coronary artery disease, diabetes, hyperlipidemia, pulmonary embolus, other Additional medical history: LUNG CA LAST CHEMO A FEW WEEKS AGO. Psychiatric history: anxiety, bipolar, depression, panic disorder - Past Surgical History Surgical History: angioplasty/stent, carotid endarterectomy, other, vascular surgery, LE stent (s), LE vascular intervention Additional surgical history: STENTS IN LEGS: [facility] filter - Social History Smoking Status: Former smoker Smokeless Tobacco Status: No Alcohol use: none Drug use: none - Family History Father Family Member Ethnicity: Non- Living Status: Hx Family Cardiac Disorders: Yes (CHF) Mother Family Member Ethnicity: Non- Living Status: Hx Family Cardiac Disorders: Yes (CHF) Hx Family Neurologic Disorders: Yes Internal Medicine - H&P: Meds Budesonide/Formoterol 160/4.5 [Symbicort 160/4.5] 2 puff IH BIDR 12/14/18 [History] Cilostazol [Pletal] 100 mg PO BID 12/14/18 [History] HYDROcodone/Acet 7.5/325 mg [[place] 7.5-325 mg] 1 tab PO Q6H PRN 12/14/18 [History] Zolpidem [Ambien] 10 mg PO HS PRN 12/14/18 [History] clonazePAM [Clonazepam] 1 mg PO QID PRN 12/14/18 [History] metFORMIN [Glucophage] 500 mg PO DAILY 12/14/18 [History] risperiDONE [Risperidone] 1 mg PO HS 12/14/18 [History] Citalopram [CeleXA] 40 mg PO DAILY 12/15/18 [History] Clopidogrel [Plavix] 75 mg PO DAILY 12/15/18 [History] Doxepin [Sinequan] 50 mg PO HS 12/15/18 [History] Simvastatin [Zocor] 40 mg PO HS 12/15/18 [History] Apixaban [Eliquis] 5 mg PO BID 02/18/19 [History] Dexamethasone [Decadron] 6 mg PO DAILY 03/04/19 [History] Fludrocortisone Acetate [Florinef] 0.1 mg PO BID 03/04/19 [History] Ipratropium/Albuterol Neb [Duoneb] 3 ml IH Q4HR PRN 03/04/19 [History] Lisinopril 2.5 mg PO DAILY 03/04/19 [History] lamoTRIgine [Lamictal] 100 mg PO HS 03/04/19 [History] Furosemide [Lasix] 20 mg PO DAILY #14 tablet 03/06/19 [Rx] Dexamethasone [Decadron] 4 mg PO BID PRN #45 tab 03/11/19 [Rx] Allergy/AdvReac Type Severity Reaction Status Date / Time Penicillins Allergy Hives Verified 03/22/19 10:57 All Systems PM: A 10-system review of systems was performed and is negative for pertinent findings except as documented above in the HPI. - Constitutional Constitutional: no chills, no fever(s), no night sweats - EENT Eyes: no change in vision, no discharge, no pain, no photophobia Ears: no ear discharge, no ear pain, no tinnitus Nose, mouth and throat: no dysphagia, no nasal discharge, no neck pain, no sore throat - Cardiovascular Cardiovascular ROS IM: no chest pain, no diaphoresis, no dyspnea, no lightheadedness, no palpitations, no syncope - Respiratory Respiratory: no cough, no dyspnea, no wheezing, no excessive phlegm production - Gastrointestinal Gastrointestinal: no abdominal pain, no diarrhea, no hematemesis, no hematochezia, no melena, no nausea, no vomiting - Genitourinary Genitourinary: no change in urinary stream, no dysuria, no flank pain, no hematuria - Musculoskeletal Musculoskeletal ROS IM: no numbness, no tingling - Integumentary Integumentary IM: no rash, no unusual bruising - Neurological Neurological ROS: no confusion, no convulsions, no focal weakness, no numbness, no tingling, no tremor(s) - Hematologic/Lymphatic Hematologic/Lymphatic: no easy bruising - Constitutional Vitals: Temp Pulse Resp BP Pulse Ox 97.9 F 107 20 100/71 98 03/22/19 19:46 03/22/19 19:46 03/22/19 19:46 03/22/19 19:46 03/22/19 19:46 Exam: General: Alert and oriented 3 lying in bed in mild distress Skin:Normal color, no rash, no lesions. HEENT:EOM, pupils equal, round and reactive. Cardiovascular:Normal S1 & S2, no rubs, murmurs or gallops. No JVD. Pulse reg ular. Lungs: With wheezing appreciated bilaterally. Abdomen:Soft, right lower quadrant tenderness to palpation. Positive bowel sounds. No rebound or guarding. Extremities:No deformity, no edema or tenderness, no joint swelling or clubbing. Neurological:Normal cognition and motor skills. Pulses:Carotid and radial pulses normal +2. Rest of the physical exam is non contributory Internal Med - H&P Results - Labs CBC & Chem 7: 03/23/19 02:57 04/30/19 02:57 - Assessment and Plan (1) Acute cholecystitis Current Visit: Yes Status: Acute Assessment and plan: Patient complaining of right lower quadrant pain similar in presentation to previous episodes of biliary colic. Elevated white count. CT scan of the abdomen showing gallstones and gallbladder wall thickening concerning for acute cholecystitis. Case discussed with surgery who will evaluate the patient in the morning. -Keep patient NPO -Anti-emetics PRN Nausea -Continue antibiotics. -Continue fluids -Follow-up blood cultures -Surgery to evaluate (2) Sepsis Current Visit: Yes Status: Acute Assessment and plan: Patient presents with 2 of 4 SIRS criteria in the setting of likely acute cholecystitis and meet sepsis criteria. Patient received 1 L fluid bolus. Blood pressure has been running soft and patient is mildly tachycardic -We will continue supportive fluids -Continue antibiotics -Follow-up blood cultures. Qualifiers: Sepsis type: sepsis due to unspecified organism Qualified Code(s): A41.9 - Sepsis, unspecified organism (3) COPD (chronic obstructive pulmonary disease) Current Visit: Yes Status: Acute Assessment and plan: History of COPD on 3 L home oxygen. Patient saturating 95% on 3 L however expiratory wheezes were appreciated bilaterally. No complaints of shortness of breath at this time the patient is mildly tachypneic in the setting of sepsis. -We will order scheduled duo nebs. Qualifiers: Emphysema type: unspecified Qualified Code(s): J43.9 - Emphysema, unspecified (4) Hypokalemia Current Visit: Yes Status: Acute Assessment and plan: Patient presented with a potassium of 2.7 on arrival. Repeat potassium 2.3. Patient was given 40 mEq of by mouth potassium 2. -We will add an additional 20 mEq by IV. Repeat potassium and monitor (5) Adrenal insufficiency Current Visit: No Status: Acute Assessment and plan: Patient has documentation of adrenal insufficiency in her past medical history. Patient is unsure medications she is taking but I did see that Decadron was on her previous medication list. This may explain her hypotension. Pharmacy confirmed that the patient takes 6 mg PO. -will give stress dose steroids (6) Diabetes mellitus type 2 with complications Current Visit: No Status: Chronic Assessment and plan: Sliding scale insulin. Blood glucose checks. Qualifiers: Diabetes mellitus prison insulin use: without prison use Qualified Code(s): E11.8 - Type 2 diabetes mellitus with unspecified complications (7) Pulmonary embolism Current Visit: No Status: Chronic Assessment and plan: History of PE on Eliquis. Will hold Eliquis for now Qualifiers: Pulmonary embolism type: other Chronicity: chronic Acute cor pulmonale presence: without acute cor pulmonale Qualified Code(s): I27.82 - Chronic pulmonary embolism (8) DVT prophylaxis Current Visit: No Status: Acute Assessment and plan: SCD - Time Spent With Patient Total time spent is greater than 50% in coordination of care (as documented) at patient's floor/unit and/or counseling patient:
[2019-03-22] MEDS: Ipratropium/Albuterol Neb 3 ML IH SCH (20:20)
--- NOTE | 2019-03-22 21:04 | AcuteCare Surgery Consult Note ---
Date of Encounter: 03/22/19 Time of Encounter: 21:00 Assessment and Plan (1) Acute cholecystitis Current Visit: Yes Status: Acute Recommend IV abx. Will discuss surgical options with pt. She is at high risk d/t comorbidies and recent PE. Hold anticoagulation. NPO. (2) Cholelithiasis Current Visit: No Status: Chronic Qualifiers: Cholelithiasis location: gallbladder Cholecystitis presence: without cholecystitis Biliary obstruction: without biliary obstruction Qualified Code(s): K80.20 - Calculus of gallbladder without cholecystitis without obstruction (3) CHF (congestive heart failure) Current Visit: No Status: Acute stable Qualifiers: Heart failure type: combined systolic and diastolic Heart failure chronicity: acute on chronic Qualified Code(s): I50.43 - Acute on chronic combined systolic (congestive) and diastolic (congestive) heart failure (4) Pulmonary embolism Current Visit: No Status: Chronic Qualifiers: Pulmonary embolism type: other Chronicity: chronic Acute cor pulmonale presence: without acute cor pulmonale Qualified Code(s): I27.82 - Chronic pulmonary embolism (5) Cardiomyopathy Current Visit: No Status: Acute stable Qualifiers: Cardiomyopathy type: unspecified Qualified Code(s): I42.9 - Cardiomyopathy, unspecified (6) A-fib Current Visit: No Status: Acute Hold xarelto Qualifiers: Atrial fibrillation type: unspecified Qualified Code(s): I48.91 - Unspecified atrial fibrillation (7) Diabetes mellitus type 2 with complications Current Visit: No Status: Chronic Qualifiers: Diabetes mellitus manager intermediate insulin use: without shelter use Qualified Code(s): E11.8 - Type 2 diabetes mellitus with unspecified complications (8) COPD (chronic obstructive pulmonary disease) Current Visit: No Status: Chronic Qualifiers: COPD type: emphysema Emphysema type: unspecified Qualified Code(s): J43.9 - Emphysema, unspecified History of Present Illness Reason for consult: abdominal pain Requesting physician: Ayla Gomez History of present illness: This 63 y/o pt presents to [facility] from [facility] ER c/o severe RUQ abdominal pain. She has a history of acute cholecystitis and recent cholecystostomy tube. Tube was recently removed. Now she returns with recurrent acute cholecystitis. Pt reports pain is severe and unrelenting. Pt c/o epigastric pain as well. Pt reports pain radiates into back. Pt reports intractible nausea and vomiting. Pt denies changes in BM. Pt denies CP or SOB. Pt denies fever. Past Med Surg Social Fam HX - Past Medical History Medical history: cancer, CHF, COPD, coronary artery disease, diabetes, hyperlipidemia, pulmonary embolus, other Additional medical history: LUNG CA LAST CHEMO A FEW WEEKS AGO. Psychiatric history: anxiety, bipolar, depression, panic disorder - Past Surgical History Surgical History: angioplasty/stent, carotid endarterectomy, other, vascular surgery, LE stent (s), LE vascular intervention Additional surgical history: STENTS IN LEGS: Rashaad filter - Social History Smoking Status: Former smoker Smokeless Tobacco Status: No Alcohol use: none Drug use: none - Family History Father Family Member Ethnicity: Non- Living Status: Hx Family Cardiac Disorders: Yes (CHF) Mother Family Member Ethnicity: Non- Living Status: Hx Family Cardiac Disorders: Yes (CHF) Hx Family Neurologic Disorders: Yes Medications and Allergies Budesonide/Formoterol 160/4.5 [Symbicort 160/4.5] 2 puff IH BIDR 12/14/18 [History] Cilostazol [Pletal] 100 mg PO BID 12/14/18 [History] HYDROcodone/Acet 7.5/325 mg [[place] 7.5-325 mg] 1 tab PO Q6H PRN 12/14/18 [History] Zolpidem [Ambien] 10 mg PO HS PRN 12/14/18 [History] clonazePAM [Clonazepam] 1 mg PO QID PRN 12/14/18 [History] metFORMIN [Glucophage] 500 mg PO DAILY 12/14/18 [History] risperiDONE [Risperidone] 1 mg PO HS 12/14/18 [History] Citalopram [CeleXA] 40 mg PO DAILY 12/15/18 [History] Clopidogrel [Plavix] 75 mg PO DAILY 12/15/18 [History] Doxepin [Sinequan] 50 mg PO HS 12/15/18 [History] Simvastatin [Zocor] 40 mg PO HS 12/15/18 [History] Apixaban [Eliquis] 5 mg PO BID 02/18/19 [History] Dexamethasone [Decadron] 6 mg PO DAILY 03/04/19 [History] Fludrocortisone Acetate [Florinef] 0.1 mg PO BID 03/04/19 [History] Ipratropium/Albuterol Neb [Duoneb] 3 ml IH Q4HR PRN 03/04/19 [History] Lisinopril 2.5 mg PO DAILY 03/04/19 [History] lamoTRIgine [Lamictal] 100 mg PO HS 03/04/19 [History] Furosemide [Lasix] 20 mg PO DAILY #14 tablet 03/06/19 [Rx] Dexamethasone [Decadron] 4 mg PO BID PRN #45 tab 03/11/19 [Rx] Allergy/AdvReac Type Severity Reaction Status Date / Time Penicillins Allergy Hives Verified 03/22/19 10:57 Review of Systems All systems PM: The remainder of the systems were reviewed and are negative - Constitutional as per HPI, anorexia, chills, fatigue, fever(s), night sweats, weakness - EENT Nose, mouth and throat: dry mouth, no nasal congestion, no nasal discharge, no sinus pain, no sinus pressure, no sore throat - Cardiovascular no chest pain, no diaphoresis, no dyspnea, no edema - Respiratory no cough, no dyspnea, no wheezing - Gastrointestinal abdominal pain, belching, bloating, cramping, heartburn, nausea, vomiting, no constipation, no diarrhea - Genitourinary Genitourinary: difficulty voiding, dysuria, urinary frequency - Musculoskeletal back pain, no joint swelling, no limited range of motion, no neck pain - Integumentary dry skin, no pruritus, no rash, no wounds, no jaundice - Neurological weakness, no dizziness, no focal weakness - Hematologic/Lymphatic easy bleeding, easy bruising General Surgery Exam Initial Vital Signs Temp Pulse Resp BP Pulse Ox 97.9 F 107 20 100/71 98 03/22/19 19:46 03/22/19 19:46 03/22/19 19:46 03/22/19 19:46 03/22/19 19:46 - General physical appearance no distress, moderate pain. negative: jaundice - Eyes PERRL, normal ocular movement. negative: icteric - ENT no congestion, dry mucosa. negative: nasal discharge - Neck no masses, no lymphadectomy, no venous distension - Respiratory normal respiratory effort, clear to auscultation - Cardiovascular Cardiovascular exam: Present: RRR. Absent: murmurs - Abdomen Abdomen general surgery: Present: bowel sounds present, distended, tender, guarding. Absent: rebound Abdominal Tenderness: Present: RUQ - Genitourinary Present: normal external genitalia - Integumentary Integumentary general surgery: Present: warm and dry - Neurologic Present: CN 2-12 grossly intact - Musculoskeletal Present: normal posture - Psychiatric Psychiatric general surgery: Present: A&Ox3, appropriate Exam Initial Vital Signs Temp Pulse Resp BP Pulse Ox 97.9 F 107 20 100/71 98 03/22/19 19:46 03/22/19 19:46 03/22/19 19:46 03/22/19 19:46 03/22/19 19:46 Results - Labs All other labs normal. - Imaging CT scan - abdomen: image reviewed (+GB wall thickening and edema; cholel ithiasis)
[2019-03-22 21:05] LABS: Prothrombin Time 11.6 Seconds (9.4-12.1)
[2019-03-22 21:08] LABS: Activated Partial Thrombo Time 29.3 Seconds (26.0-36.0)
[2019-03-22 21:12] LABS: BUN/Creatinine Ratio 15 (6-26); Blood Urea Nitrogen 8 mg/dL (8-23); Carbon Dioxide 41 mEq/L (23-29); Chloride 88 mEq/L (98-107); Glucose 180 mg/dL (70-105); Osmolality,Calculated 285 (280-300); Potassium 2.3 mEq/L (3.5-5.1); Sodium 136 mEq/L (136-145); eGFR For Non-African Americans > 60 (> 60)
[2019-03-22] MEDS: MetroNIDAZOLE 500 MG/100 ML 500 MG/100 ML BAG IVPB SCH (22:13)
[2019-03-23] MEDS: Ipratropium/Albuterol Neb 3 ML IH SCH ×4 (00:14→11:13)
[2019-03-23] MEDS ORDERED: Potassium Chloride 20 MEQ, Lidocaine 1% 2 ML in D5% in Water 250 ML IVPB ONE (00:19)
[2019-03-23] MEDS ORDERED: 0.9 % Sodium Chloride 1,000 ML IVC SCH (00:20)
[2019-03-23] MEDS: Cefepime HCl 2,000 MG in Water for inj. (sterile) 20 ML 20 ML IVP SCH ×4 (01:04→23:35)
[2019-03-23] MEDS: Insulin LISPRO 300 UNITS/3 ML VIAL SQ SCH ×5 (01:27→23:37)
[2019-03-23] MEDS ORDERED: Naloxone 0.4 MG/ML INJ IVP PRN (02:08)
[2019-03-23] MEDS: OXYCODONE Oral CONC 10 MG/0.5 ML ORAL.SYG SL PRN ×2 (02:29→12:01)
[2019-03-23] MEDS: *HR* Promethazine 25 MG/ML VIAL IVP PRN ×2 (02:30→11:11)
[2019-03-23] MEDS ORDERED: Dexamethasone 10 MG/ML VIAL IVP STA (03:15)
[2019-03-23 03:25] LABS: Eosinophils % 0.1 %; Hemoglobin 9.7 g/dL (11.5-15.4); Lymphocytes % 5.8 %; Red Cell Distribution Width 14.7 % (11.5-14.5)
[2019-03-23 03:27] LABS: Basophils % 0.3 %; Hematocrit 29.4 % (35.3-44.9); Immature Granulocytes % 5.3 % (0-4); Immature Platelets 7.6 % (1.1-6.1); Lymphocytes # 0.7 K/mcL (0.6-4.6); Mean Corpuscular Hemoglobin 33.8 pg (28.0-33.3); Mean Corpuscular Volume 102.4 fL (83.0-100.0); Mean Platelet Volume 11.2 fL (9.4-12.4); Monocytes # 0.6 K/mcL (0.0-1.3); Monocytes % 4.7 %; Neutrophils # 10.1 K/mcL (1.6-8.9); Nucleated Red Blood Cells 0.9 /100 WBC (0); Red Blood Count 2.87 M/mcL (3.82-4.97); Segmented Neutrophils % 83.8 %
[2019-03-23 03:31] LABS: Platelet Count 60 K/mcL (140-400)
[2019-03-23 03:33] LABS: INR 1.2; Prothrombin Time 13.8 Seconds (9.4-12.1)
[2019-03-23 03:36] LABS: Activated Partial Thrombo Time 21.8 Seconds (26.0-36.0)
[2019-03-23 03:48] LABS: Alanine Aminotransferase 12 Units/L (7-52); Albumin 2.8 g/dL (3.5-5.7); Albumin/Globulin Ratio 1.4 (1.1-2.2); Alkaline Phosphatase 119 Units/L (34-104); Aspartate Amino Transferase 14 Units/L (13-39); BUN/Creatinine Ratio 16 (6-26); Bilirubin,Total 0.5 mg/dL (0.3-1.0); Blood Urea Nitrogen 7 mg/dL (8-23); Calcium 7.6 mg/dL (8.6-10.3); Carbon Dioxide 33 mEq/L (23-29); Chloride 95 mEq/L (98-107); Glucose 172 mg/dL (70-105); Magnesium 1.2 mg/dL (1.6-2.6); Osmolality,Calculated 282 (280-300); Potassium 2.9 mEq/L (3.5-5.1); Sodium 135 mEq/L (136-145); Total Protein 4.8 g/dL (6.4-8.9); eGFR For Non-African Americans > 60 (> 60)
[2019-03-23 03:56] LABS: Platelet Estimate Decreased (Normal)
[2019-03-23] MEDS: MetroNIDAZOLE 500 MG/100 ML 500 MG/100 ML BAG IVPB SCH ×4 (04:41→23:36)
[2019-03-23] MEDS ORDERED: Acetaminophen IV 500 MG/50 ML INFUS..BTL IVPB ONE (04:54)
[2019-03-23] MEDS ORDERED: 0.9 % Sodium Chloride 250 ML IVC ONE (06:31)
[2019-03-23] MEDS ORDERED: Ipratropium/Albuterol Neb 3 ML IH PRN (10:51)
[2019-03-23] MEDS ORDERED: clonazePAM 1 MG TABLET PO PRN (10:51)
--- NOTE | 2019-03-23 10:55 | AcuteCareSurgery Progress Note ---
Date of Encounter: 03/23/19 Time of Encounter: 07:15 - Assessment and Plan (1) Cholecystitis, acute with cholelithiasis Current Visit: Yes Status: Acute The patient is at very high risk for general anesthetic. I had a clinical conference with Dr. Luque who is in complete agreement with vena cava filter and maximizing pulmonary and cardiac care prior to surgery on . Cameron Kirby MD FACS Qualifiers: Biliary obstruction: without biliary obstruction Qualified Code(s): K80.00 - Calculus of gallbladder with acute cholecystitis without obstruction Subjective Narrative: The patient continues to have severe right upper quadrant pain. The patient is in very poor overall health with severe COPD and worsening cardiomyopathy and congestive heart failure. She has recently had pulmonary embolism. She recently had cholecystostomy tube placed and subsequently removed without cholecystectomy. She now has recurrent acute cholecystitis. At this point she would not benefit from repeat cholecystostomy tube. I do not believe that we can significantly improve her overall condition within the six- week period of time. She is at very high risk for general anesthetic, however, she is at high risk for untreated acute cholecystitis At this point I would recommend holding the Plavix and placement of a inferior vena cava filter. I would recommend optimizing her pulmonary and cardiac care in the short-term in the next 48 hours and plan cholecystectomy on . Objective Vital Signs - Last 8 Hours Temp Pulse Resp BP Pulse Ox 03/23/19 10:45 97.8 F 98 19 106/75 95 03/23/19 09:48 94 85/62 03/23/19 08:54 93 86/57 03/23/19 08:48 99 84/58 03/23/19 08:27 98.5 F 103 20 88/57 93 03/23/19 07:05 16 88/57 97 03/23/19 06:35 98.5 F 103 20 88/59 96 03/23/19 05:01 98.3 F 109 16 89/61 93 03/23/19 03:59 17 95 03/23/19 03:38 100.6 F H 109 18 81/55 95 Intake and Output 03/22/19 03/23/19 03/23/19 23:59 07:59 15:59 Intake Total 0 / 0 1120 / 2432 1312 / 2432 Output Total 0 / 0 800 / 800 Balance 0 / 0 320 / 1632 1312 / 1632 Intake: IV Fluids 0 / 0 1120 / 2432 1312 / 2432 0.9 % Sodium Chloride 1,000 ML 1000 / 2000 1000 / 2000 @ 75 mls/hr IVC .[id number] [facility] Rx #:[id number] Maxipime 2,000 MG In Water for 20 / 20 inj. (sterile) 20 ML @ 300 mls/ hr IVP Q8HR [facility] Rx#:[id number] Ofirmev 1,000 mg/100 ml 500 mg 50 / 50 In 50 ml @ 200 mls/hr IVPB ONCE ONE Rx#:[id number] Flagyl Premix 500 MG/100 ML 500 0 / 0 100 / 100 mg In 100 ml @ 100 mls/hr IVPB Q8HR [facility] Rx#:[id number] KCl 20 MEQ Xylocaine 2 ML In 262 / 262 Dextrose 5% 250 ML @ 131 mls/hr IVPB ONCE ONE Rx#:[id number] Oral 0 / 0 0 / 0 Output: Urine 0 / 0 800 / 800 Other: Weight 79.6 kg 80.3 kg Blood Glucose* 183 Patient Weight 03/23/19 23:59 Weight 80.3 kg - General physical appearance well developed, well nourished, chronically ill - Respiratory crackles: bilateral, wheezing: bilateral - Cardiovascular Cardiovascular exam: Present: irregular rhythm, no murmurs/rubs/gallops - Abdomen Abdomen: Present: tender Abdominal Tenderness: RUQ - Neurologic normal coordination, normal sensation - Psychiatric oriented to time, oriented to person, oriented to place, speech is normal, memory intact - Labs 03/23/19 02:57 03/23/19 02:57 Diabetes panel 03/22/19 03/23/19 Range/Units 20:27 02:57 Sodium 136 135 L (136-145) mEq/L Potassium 2.3 L* 2.9 L D (3.5-5.1) mEq/L Chloride 88 L 95 L (98-107) mEq/L Carbon Dioxide 41 H* 33 H (23-29) mEq/L BUN 8 7 L (8-23) mg/dL Creatinine 0.54 L 0.44 L (0.60-1.20) mg/dL Glucose 180 H 172 H (70-105) mg/dL Calcium 9.0 7.6 L (8.6-10.3) mg/dL AST 14 (13-39) Units/L ALT 12 (7-52) Units/L Alkaline Phosphatase 119 H (34-104) Units/L Albumin 2.8 L (3.5-5.7) g/dL Calcium panel 03/22/19 03/23/19 Range/Units 20:27 02:57 Calcium 9.0 7.6 L (8.6-10.3) mg/dL Albumin 2.8 L (3.5-5.7) g/dL Pituitary panel 03/22/19 03/23/19 Range/Units 20:27 02:57 Sodium 136 135 L (136-145) mEq/L Potassium 2.3 L* 2.9 L D (3.5-5.1) mEq/L Chloride 88 L 95 L (98-107) mEq/L Carbon Dioxide 41 H* 33 H (23-29) mEq/L BUN 8 7 L (8-23) mg/dL Creatinine 0.54 L 0.44 L (0.60-1.20) mg/dL Glucose 180 H 172 H (70-105) mg/dL Calcium 9.0 7.6 L (8.6-10.3) mg/dL Adrenal panel 03/22/19 03/23/19 Range/Units 20:27 02:57 Sodium 136 135 L (136-145) mEq/L Potassium 2.3 L* 2.9 L D (3.5-5.1) mEq/L Chloride 88 L 95 L (98-107) mEq/L Carbon Dioxide 41 H* 33 H (23-29) mEq/L BUN 8 7 L (8-23) mg/dL Creatinine 0.54 L 0.44 L (0.60-1.20) mg/dL Glucose 180 H 172 H (70-105) mg/dL Calcium 9.0 7.6 L (8.6-10.3) mg/dL Total Bilirubin 0.5 (0.3-1.0) mg/dL AST 14 (13-39) Units/L ALT 12 (7-52) Units/L Alkaline Phosphatase 119 H (34-104) Units/L Albumin 2.8 L (3.5-5.7) g/dL Consult Discharge Plan - Plan Referrals: Maisha Ruth, [employer] [Primary Care Provider] -
[2019-03-23] MEDS: Sucralfate 1 GM TABLET PO SCH ×3 (12:02→20:21)
[2019-03-23] MEDS: 0.9 % Sodium Chloride w KCl 40 MEQ/1,000 ML MLS IVC SCH ×2 (12:18→20:21)
--- NOTE | 2019-03-23 12:21 | Internal Med Progress Note ---
Hospitalist Progress Note - Encounter Date of Encounter: 03/23/19 Time of Encounter: 11:00 - Subjective Interval History: H&P reviewed. Patient with history of metastatic lung cancer on palliative chemotherapy, PE dx in 12/2018 on Eliquis, oxygen dependent COPD, heart failure with reduced EF, chronic steroid dependence, diabetes, was admitted overnight due to sepsis secondary to acute cholecystitis. Of note, she had cholecystostomy tube inserted back in December which was subsequently removed a month later. She complains of nausea and right upper quadrant pain. She remains borderline hypotensive - Exam Vitals: Temp Pulse Resp BP Pulse Ox 97.8 F 98 16 106/75 95 03/23/19 10:45 03/23/19 10:45 03/23/19 11:13 03/23/19 11:13 03/23/19 11:13 Exam: General: Alert and oriented, mild distress. Cardiovascular:Normal S1 & S2, No JVD. Pulse regular. Lungs: clear to auscultation, no wheezes/rales Abdomen:Soft, moderate right upper quadrant tenderness without rebound/guarding/rigidity Extremities:No deformity or swelling Neurological:Normal cognition and motor skills. Non-focal - Assessment and Plan (1) Sepsis Current Visit: Yes Status: Acute Assessment and Plan: Patient presents with 2 of 4 SIRS criteria in the setting of acute cholecystitis. Lactic acid normal but borderline blood pressure given her history of HFrEF, will cautiously hydrate her Continue antibiotics Due to chronic steroid dependence, will give her stress dose steroids with hydrocortisone 50 mg every 6H surgery input appreciated. Hold off on antiplatelets and AC, IVC filter tomorrow, and tentatively plan for surgery on Follow-up blood cultures. (2) Acute cholecystitis Current Visit: Yes Status: Acute Assessment and Plan: appreciate surgery input, abx and surgery on very high risk pt for GA, recently diagnosed HFrEF but apparently declined [facility] at that time will obtain cardiology consultation for pre-op eval (3) Pulmonary embolism Current Visit: No Status: Chronic Assessment and Plan: Diagnosis of December 2018, had been on Eliquis since then Repeat CTA in January did not show any evidence of PE AC on hold due to anticipated surgery IVC filter tomorrow (4) HFrEF (heart failure with reduced ejection fraction) Current Visit: Yes Status: Chronic Assessment and Plan: Relatively recent diagnosis of heart failure with reduced EF, 30-35% on echo 01/2019. Declined LHC at that time robert-i on hold due to borderline BP cautious hydration while holding Lasix given sepsis cardiology consult for pre-op eval (5) COPD (chronic obstructive pulmonary disease) Current Visit: Yes Status: Chronic Assessment and Plan: Not in exacerbation resume home inhalers and duoneb PRN (6) Adrenal insufficiency Current Visit: No Status: Chronic Assessment and Plan: On dexamethasone after chemotherapy and Florinef Stress dose steroids as above (7) Diabetes mellitus type 2 with complications Current Visit: No Status: Chronic Assessment and Plan: A1c 6.8 in August 2018 Metformin on hold Low-dose sliding scale coverage (8) CAD (coronary artery disease) Current Visit: Yes Status: Chronic Assessment and Plan: holding Plavix in anticipation for surgery Robert inhibitor is also on hold due to borderline blood pressure (9) Goals of care, counseling/discussion Current Visit: No Status: Chronic Assessment and Plan: Reviewed palliative care note from January 2019, she was initially made DNR CCA but reverted her CODE STATUS after discussing with the daughter clearly remains a very poor candidate for surgery and poor prognosis overall regardless, which patient understands but wants to stay as full code after prolonged discussion palliative care consult for GOC discussion (10) DVT prophylaxis Current Visit: No Status: Acute Assessment and Plan: EPCD - Time Spent with Patient Total time spent is greater than 50% in coordination of care (as documented) at patient's floor/unit and/or counseling patient: Greater than 35 minutes Plan of Care Discussed with: patient (Discussed with surgery, cardiology, and palliative care in great detail) Internal Medicine: Result - Labs CBC & Chem 7: 03/23/19 02:57 03/23/19 02:57 Labs: Short CBC 03/23/19 Range/Units 02:57 WBC 12.0 H (4.3-11.1) K/mcL Hgb 9.7 L D (11.5-15.4) g/dL Hct 29.4 L (35.3-44.9) % Plt Count 60 L (140-400) K/mcL Neutrophils # 10.1 H (1.6-8.9) K/mcL BMP 03/22/19 03/23/19 20:27 02:57 Sodium 136 135 L Potassium 2.3 L* 2.9 L D Chloride 88 L 95 L Carbon Dioxide 41 H* 33 H BUN 8 7 L Creatinine 0.54 L 0.44 L Glucose 180 H 172 H Calcium 9.0 7.6 L Liver Function 03/23/19 Range/Units 02:57 Total Bilirubin 0.5 (0.3-1.0) mg/dL AST 14 (13-39) Units/L ALT 12 (7-52) Units/L Alkaline Phosphatase 119 H (34-104) Units/L Albumin 2.8 L (3.5-5.7) g/dL - ABG Interpretation ABG results: PT/INR, D-dimer PT 13.8 Seconds (9.4-12.1) H 03/23/19 02:57 Consult Discharge Plan - Plan Referrals: Maisha Ruth, [employer] [Primary Care Provider] - (1) Sepsis Qualifiers: Sepsis type: sepsis due to unspecified organism Qualified Code(s): A41.9 - Sepsis, unspecified organism (3) Pulmonary embolism Qualifiers: Pulmonary embolism type: other Chronicity: chronic Acute cor pulmonale presence: without acute cor pulmonale Qualified Code(s): I27.82 - Chronic pulmonary embolism (4) HFrEF (heart failure with reduced ejection fraction) Qualifiers: Heart failure chronicity: chronic Qualified Code(s): I50.22 - Chronic systolic (congestive) heart failure (5) COPD (chronic obstructive pulmonary disease) Qualifiers: Emphysema type: unspecified Qualified Code(s): J43.9 - Emphysema, unspecified (7) Diabetes mellitus type 2 with complications Qualifiers: Diabetes mellitus snf insulin use: without terminal computer operator use Qualified Code(s): E11.8 - Type 2 diabetes mellitus with unspecified complications (8) CAD (coronary artery disease) Qualifiers: Coronary Disease-Associated Artery/Lesion type: [place] artery [place] vs. transplanted heart: unspecified whether [place] or transplanted heart Associated angina: angina presence unspecified Qualified Code(s): I25.10 - Atherosclerotic heart disease of [place] coronary artery without angina pectoris
[2019-03-23] MEDS: Hydrocortisone Sodium Succ 100 MG/2 ML VIAL IVP SCH ×3 (12:28→23:36)
--- NOTE | 2019-03-23 12:29 | Cardiology Consult Note ---
Date of Encounter: 03/23/19 Time of Encounter: 12:25 Assessment and Plan (1) Pre-operative cardiovascular examination Current Visit: Yes Status: Acute Patient is currently hypotensive and in heart failure. In addition, she has a RCRI class IV risk, which confers a significantly high risk for perioperative adverse cardiac events. Decision to proceed with surgery will be deferred to patient and surgical team (2) CAD in [place] artery Current Visit: No Status: Chronic Continue aspirin, statin. Hold beta ottoniel (3) HFrEF (heart failure with reduced ejection fraction) Current Visit: Yes Status: Chronic Cautious diuresis in view of hypotension Qualifiers: Heart failure chronicity: chronic Qualified Code(s): I50.22 - Chronic systolic (congestive) heart failure Discussion w patient/family: The assessment and plan as outlined above was discussed with the patient and/or family members who expressed understanding and agreement. All questions were answered. Thank you for involving us in the care of your patient. Please call with any questions. History of Present Illness Consult date: 03/23/19 Requesting physician: Patrick Luque History of present illness: Ms. Mace is a 63 year old female Ms. Mace is a 63 year old female with history of CAD, ischemic cardiomyopathy with most recent echo showing EF of 30-35%.Severe global left ventricular systolic dysfunction. Coronary angiogram in May 2017 showed LAD with a 100% prox LAD stenosis with ipsilateral collaterals. The 1st Diagonal has mild disease. 30% mid LCx stenosis, 50% stenosis in the OM. The RCA is non dominant, small in size, angiographically free of disease. She does have history of stage IV metastatic lung cancer, PVD, CAD, HTN, HLD, DM, COPD, bipolar, carotid disease s/p CEA, CVA, PE on Eliquis admitted for sepsis secondary to acute ch olecystitis Past Med Surg Social Fam HX - Past Medical History Medical history: cancer, CHF, COPD, coronary artery disease, diabetes, hyperlipidemia, pulmonary embolus, other Additional medical history: LUNG CA LAST CHEMO A FEW WEEKS AGO. Psychiatric history: anxiety, bipolar, depression, panic disorder - Past Surgical History Surgical History: angioplasty/stent, carotid endarterectomy, other, vascular surgery, LE stent (s), LE vascular intervention Additional surgical history: STENTS IN LEGS: Tyler filter - Social History Smoking Status: Former smoker Smokeless Tobacco Status: No Alcohol use: none Drug use: none - Family History Father Family Member Ethnicity: Non- Living Status: Hx Family Cardiac Disorders: Yes (CHF) Mother Family Member Ethnicity: Non- Living Status: Hx Family Cardiac Disorders: Yes (CHF) Hx Family Neurologic Disorders: Yes Medications and Allergies Budesonide/Formoterol 160/4.5 [Symbicort 160/4.5] 2 puff IH BID 12/14/18 [History] Cilostazol [Pletal] 100 mg PO BID 12/14/18 [History] HYDROcodone/Acet 7.5/325 mg [[place] 7.5-325 mg] 1 tab PO Q6H PRN 12/14/18 [History] Zolpidem [Ambien] 10 mg PO HS PRN 12/14/18 [History] risperiDONE [Risperidone] 1 mg PO HS 12/14/18 [History] Citalopram [CeleXA] 40 mg PO DAILY 12/15/18 [History] Clopidogrel [Plavix] 75 mg PO DAILY 12/15/18 [History] Doxepin [Sinequan] 50 mg PO HS 12/15/18 [History] Simvastatin [Zocor] 40 mg PO HS 12/15/18 [History] Apixaban [Eliquis] 5 mg PO BID 02/18/19 [History] Fludrocortisone Acetate [Florinef] 0.1 mg PO BID 03/04/19 [History] Ipratropium/Albuterol Neb [Duoneb] 3 ml IH Q4HR PRN 03/04/19 [History] Lisinopril 2.5 mg PO DAILY 03/04/19 [History] lamoTRIgine [Lamictal] 100 mg PO HS 03/04/19 [History] Furosemide [Lasix] 20 mg PO DAILY #14 tablet 03/06/19 [Rx] Dexamethasone [Decadron] 4 mg PO BID PRN #45 tab 03/11/19 [Rx] Dexamethasone [Decadron] 6 mg PO DAILY 03/23/19 [History] Lidocaine/Prilocaine [Emla] 1 appl TP AD 03/23/19 [History] Metformin HCl [Glucophage Xr] 500 mg PO DAILY 03/23/19 [History] Potassium Chloride [K-Tab ER] 20 meq PO DAILY 03/23/19 [History] Prochlorperazine Maleate [Compazine] 10 mg PO Q6HR PRN 03/23/19 [History] Sucralfate [Carafate] 1 gm PO QID 03/23/19 [History] Tiotropium [Spiriva] 18 mcg IH DAILY 03/23/19 [History] clonazePAM [Clonazepam] 1 mg PO QID PRN 03/23/19 [History] Allergy/AdvReac Type Severity Reaction Status Date / Time Penicillins Allergy See Verified 03/23/19 09:19 Comments All Systems Review: The remainder of the systems were reviewed and are negative - Constitutional Constitutional: no anorexia - Cardiovascular Cardiovascular: chest pain with exertion, no chest pain at rest, no dyspnea at rest, no palpitations - Respiratory Respiratory: no cough - Gastrointestinal Gastrointestinal: abdominal pain, nausea - Musculoskeletal Musculoskeletal: no arthralgias - Integumentary Integumentary: no unusual bruising - Neurological Neurological: no loss of vision Physical Examination Vital Signs, Last 4 Hours Temp Pulse Resp BP Pulse Ox 03/23/19 11:13 16 106/75 95 03/23/19 10:45 97.8 F 98 19 106/75 95 03/23/19 09:48 94 85/62 03/23/19 08:54 93 86/57 03/23/19 08:48 99 84/58 03/23/19 08:27 98.5 F 103 20 88/57 93 General: Conversant HEENT: Atraumatic, Normocephaly Neck: No JVD Cardiac: Reg Rate and Rhythm, Normal S1 and S2, No Murmur Lungs: Normal Breath Sounds, No Wheeze, Rales, Rhonchi Neuro: Alert and responsive Abdomen: Soft Musculoskeletal: No Chest Wall Tenderness Extremities: Other (Bilateral pedal edema) Results 03/23/19 02:57 03/23/19 02:57 Lab Results 03/22/19 03/22/19 03/23/19 20:27 20:27 02:57 WBC 12.0 H Hgb 9.7 L D Hct 29.4 L Plt Count 60 L INR 1.0 APTT 29.3 Sodium 136 Potassium 2.3 L* Chloride 88 L Carbon Dioxide 41 H* BUN 8 Creatinine 0.54 L Glucose 180 H Calcium 9.0 Magnesium Total Bilirubin AST ALT Alkaline Phosphatase 03/23/19 03/23/19 02:57 02:57 WBC Hgb Hct Plt Count INR 1.2 APTT 21.8 L Sodium 135 L Potassium 2.9 L D Chloride 95 L Carbon Dioxide 33 H BUN 7 L Creatinine 0.44 L Glucose 172 H Calcium 7.6 L Magnesium 1.2 L Total Bilirubin 0.5 AST 14 ALT 12 Alkaline Phosphatase 119 H Consult Discharge Plan - Plan Referrals: Maisha Ruth, [employer] SCI[employer] PROFESSOR [Primary Care Provider] -
[2019-03-23] MEDS ORDERED: 0.9 % Sodium Chloride 500 ML ONE (13:15)
[2019-03-23] MEDS ORDERED: 0.9 % Sodium Chloride 500 ML IVC ONE (13:38)
--- NOTE | 2019-03-23 15:50 | Palliative - Consult Note ---
Date of Encounter: 03/23/19 Time of Encounter: 14:30 - Assessment and Plan (1) Abdominal pain Current Visit: Yes Status: Acute Assessment and plan: Patient has RUQ tenderness and pain, On Oxycodone 5 mg every 4 hours when necessary sublingual, will continue current. Qualifiers: Abdominal location: right upper quadrant Qualified Code(s): R10.11 - Right upper quadrant pain (2) Goals of care, counseling/discussion Current Visit: No Status: Chronic Assessment and plan: Patient was unable to participate in goals of care discussion because of altered mental status. Patient's medical POA is Angélica Zamora, patient granddaughter. Called Angélica at [phone], and discussed current medical condition, trajectory of illness, overall comorbidities, overall poor prognosis and treatment options. Angélica stated that she had a conversation with patient today, and patient wanted the surgery to be done if it can keep her off pain for some time. She stated that patient still wants everything to be done to keep her alive, including a trial at short-term intubation. However, Angélica stated that if patient was to have a cardiac arrest, she does not want to be resuscitated. Patient does have a DNRCCA form scanned in the chart. CODE STATUS changed to DNR CC arrest. Angélica will come and visit with patient, and will continue goals of care discussion after she has updates and can see the patient. Palliative care will continue to follow. (3) Palliative care encounter Current Visit: Yes Status: Acute (4) Acute cholecystitis Current Visit: No Status: Acute Assessment and plan: Patient is being evaluated by surgery for possible cholecystectomy, surgery stated will be high risk. Patient had a recent PE, started on eliquis, before surgery will need to be off eliquis for 48 hours and receive an IVC filte, and also pulmonary and cardiac optimization. management per surgery. Per conversation with patient's granddaughter and POA Angélica, patient wanted to attempt the surgery if that can get her to be pain-free. (5) Sepsis Current Visit: Yes Status: Acute Assessment and plan: likely due to cholecystitis. Patient hypotensive, transferred to MICU. Management per primary team. Qualifiers: Sepsis type: sepsis due to unspecified organism Qualified Code(s): A41.9 - Sepsis, unspecified organism (6) Lung cancer Current Visit: No Status: Chronic Qualifiers: Laterality: right Lung location: upper lobe of lung Qualified Code(s): C34.11 - Malignant neoplasm of upper lobe, right bronchus or lung Palliative-CN HPI - Data of Consult Patient: known to practice within the last 3 years Consult date: 03/23/19 Requesting Physician: Patrick Luque MD Primary Care Provider: Maisha Ruth CNP - Consult Narrative Palliative Care/Comfort Measures: Palliative care Reason for consult: Gals of care discussion History of present illness: Ms. Mace is a 63 year old female with a past medical history of stage IV squamous cell carcinoma of the lung, diabetes, CAD, hyperlipidemia, PE on Eliquis, and COPD who presented to [facility] due to right lower quadrant abdominal pain. Patient reported that she has been having problems with her gallbladder and had a cholecystostomy tube placed in December of this year that was removed 2 weeks ago. Patient is experiencing increasing pain. CT scan of the abdomen performed at [facility] showed findings suspicious for acute cholecystitis with gallstones and marked gallbladder wall thickening. patient has Stage Zia, M1a moderately differentiated squamous cell carcinoma with bilateral metastatic pulmonary nodules, underwent, palliative radiotherapy to the right upper lobe obstructing mass 2000cGy, she had her first dose of chemotherapy 03/11/2019. Patient is known to palliative care from the admission in december, where she decided for DNRCCA and continued follow up with oncology for treatment. Today patient was lethargic, answering to her name and said that she is not feeling well, but unable to onset any further questions. CC: Patrick Luque MD - Time Spent with Patient Time: Total time spent is greater than 50% in coordination of care (as documented) at patient's floor/unit and/or counseling patient: Time with patient: 60 minutes Past Med Surg Social Fam HX - Past Medical History Medical history: cancer, CHF, COPD, coronary artery disease, diabetes, hyperlipidemia, pulmonary embolus, other Additional medical history: LUNG CA LAST CHEMO A FEW WEEKS AGO. Psychiatric history: anxiety, bipolar, depression, panic disorder - Past Surgical History Surgical History: angioplasty/stent, carotid endarterectomy, other, vascular surgery, LE stent (s), LE vascular intervention Additional surgical history: STENTS IN LEGS: [facility] filter - Social History Smoking Status: Former smoker Smokeless Tobacco Status: No Alcohol use: none Drug use: none - Family History Father Family Member Ethnicity: Non- Living Status: Hx Family Cardiac Disorders: Yes (CHF) Mother Family Member Ethnicity: Non- Living Status: Hx Family Cardiac Disorders: Yes (CHF) Hx Family Neurologic Disorders: Yes Medications and Allergies Budesonide/Formoterol 160/4.5 [Symbicort 160/4.5] 2 puff IH BID 12/14/18 [History] Cilostazol [Pletal] 100 mg PO BID 12/14/18 [History] HYDROcodone/Acet 7.5/325 mg [[place] 7.5-325 mg] 1 tab PO Q6H PRN 12/14/18 [History] Zolpidem [Ambien] 10 mg PO HS PRN 12/14/18 [History] risperiDONE [Risperidone] 1 mg PO HS 12/14/18 [History] Citalopram [CeleXA] 40 mg PO DAILY 12/15/18 [History] Clopidogrel [Plavix] 75 mg PO DAILY 12/15/18 [History] Doxepin [Sinequan] 50 mg PO HS 12/15/18 [History] Simvastatin [Zocor] 40 mg PO HS 12/15/18 [History] Apixaban [Eliquis] 5 mg PO BID 02/18/19 [History] Fludrocortisone Acetate [Florinef] 0.1 mg PO BID 03/04/19 [History] Ipratropium/Albuterol Neb [Duoneb] 3 ml IH Q4HR PRN 03/04/19 [History] Lisinopril 2.5 mg PO DAILY 03/04/19 [History] lamoTRIgine [Lamictal] 100 mg PO HS 03/04/19 [History] Furosemide [Lasix] 20 mg PO DAILY #14 tablet 03/06/19 [Rx] Dexamethasone [Decadron] 4 mg PO BID PRN #45 tab 03/11/19 [Rx] Dexamethasone [Decadron] 6 mg PO DAILY 03/23/19 [History] Lidocaine/Prilocaine [Emla] 1 appl TP AD 03/23/19 [History] Metformin HCl [Glucophage Xr] 500 mg PO DAILY 03/23/19 [History] Potassium Chloride [K-Tab ER] 20 meq PO DAILY 03/23/19 [History] Prochlorperazine Maleate [Compazine] 10 mg PO Q6HR PRN 03/23/19 [History] Sucralfate [Carafate] 1 gm PO QID 03/23/19 [History] Tiotropium [Spiriva] 18 mcg IH DAILY 03/23/19 [History] clonazePAM [Clonazepam] 1 mg PO QID PRN 03/23/19 [History] Allergy/AdvReac Type Severity Reaction Status Date / Time Penicillins Allergy See Verified 03/23/19 09:19 Comments ROS unobtainable: due to mental status - Gastrointestinal Gastrointestinal: abdominal pain Palliative Care-Exam - Constitutional Vitals: Temp Pulse Resp BP Pulse Ox 97.9 F 92 12 81/66 92 03/23/19 14:00 03/23/19 14:56 03/23/19 14:00 03/23/19 14:00 03/23/19 14:00 General appearance: Present: obese Exam: sick looking - Head Head Exam: Present: atraumatic - Eye Eye exam: Present: EOMI - ENT ENT exam: Present: mucous membranes dry - Neck Neck exam: Present: normal inspection - Respiratory Respiratory exam: Present: CTAB. Absent: respiratory distress - Cardiovascular Cardiovascular exam: Present: +S1, +S2 - GI/Abdominal Exam GI/Abdominal exam: Present: normal bowel sounds, tenderness (RUQ) - Extremities Exam Extremities exam: Present: normal inspection. Absent: pedal edema - Neurological Exam Neurological exam: Present: altered, no focal deficits Additional comments: lethargic Internal Medicine - CN: Reslt - Labs CBC & Chem 7: 03/23/19 02:57 03/23/19 02:57 Labs: Short CBC 03/23/19 Range/Units 02:57 WBC 12.0 H (4.3-11.1) K/mcL Hgb 9.7 L D (11.5-15.4) g/dL Hct 29.4 L (35.3-44.9) % Plt Count 60 L (140-400) K/mcL Neutrophils # 10.1 H (1.6-8.9) K/mcL BMP 03/22/19 03/23/19 20:27 02:57 Sodium 136 135 L Potassium 2.3 L* 2.9 L D Chloride 88 L 95 L Carbon Dioxide 41 H* 33 H BUN 8 7 L Creatinine 0.54 L 0.44 L Glucose 180 H 172 H Calcium 9.0 7.6 L Liver Function 03/23/19 Range/Units 02:57 Total Bilirubin 0.5 (0.3-1.0) mg/dL AST 14 (13-39) Units/L ALT 12 (7-52) Units/L Alkaline Phosphatase 119 H (34-104) Units/L Albumin 2.8 L (3.5-5.7) g/dL - ABG Interpretation ABG results: PT/INR, D-dimer PT 13.8 Seconds (9.4-12.1) H 03/23/19 02:57 Consult Discharge Plan - Plan Referrals: Maisha Ruth, KJ [Primary Care Provider] - Palliative Quality Palliative Quality: Screen for Code Status: Yes, Screen for Goals of Care: Yes, Screen for Pain: Yes, If Pain Regimen Started, Initiate Bowel Regimen: Yes, Screen for Nausea/Vomitting: Yes Code Status: 03/22/19 19:56 Resuscitation Status: Active [RES] Routine Comment: Resuscitation Status: Full Code Palliative Scale - Palliative Performance Scale How ambulatory is this patient?: Mainly sit / lie What is patient's level of activity and evidence of disease?: Unable to do any work, Extensive disease How much self-care assistance does patient require?: Mainly assistance How much oral intake does the patient have?: Normal or reduced What is this patient's level of consciousness?: Full or confusion Palliative Performance Score: 50 %
[2019-03-23 16:02] LABS: ABG Base Excess 8 mEq/L (-2 to 3); ABG HCO3 35 mEq/L (21-27); ABG Oxygen Saturation 94 % (95-98); ABG PCO2 55 mmHg (35-45); ABG PO2 74 mmHg (85-104); ABG TCO2 36 mEq/L (20-26)
[2019-03-23 17:06] LABS: BUN/Creatinine Ratio 22 (6-26); Blood Urea Nitrogen 11 mg/dL (8-23); Calcium 8.4 mg/dL (8.6-10.3); Carbon Dioxide 29 mEq/L (23-29); Chloride 103 mEq/L (98-107); Glucose 176 mg/dL (70-105); Osmolality,Calculated 292 (280-300); Potassium 3.9 mEq/L (3.5-5.1); Sodium 139 mEq/L (136-145); eGFR For Non-African Americans > 60 (> 60)
[2019-03-23] MEDS: risperiDONE 1 MG TABLET PO SCH (20:20)
[2019-03-23] MEDS: lamoTRIgine 100 MG TABLET PO SCH (20:20)
[2019-03-23] MEDS: Budesonide/Formoterol 160/4.5 1 PUFF INH IH SCH (21:41)
--- NOTE | 2019-03-23 21:59 | Pulmonology Consult Note ---
<KristynDonnieadolph M - Last Filed: 03/23/19 22:12> Date of Encounter: 03/23/19 Medications and Allergies Budesonide/Formoterol 160/4.5 [Symbicort 160/4.5] 2 puff IH BID 12/14/18 [History] Cilostazol [Pletal] 100 mg PO BID 12/14/18 [History] HYDROcodone/Acet 7.5/325 mg [[place] 7.5-325 mg] 1 tab PO Q6H PRN 12/14/18 [History] Zolpidem [Ambien] 10 mg PO HS PRN 12/14/18 [History] risperiDONE [Risperidone] 1 mg PO HS 12/14/18 [History] Citalopram [CeleXA] 40 mg PO DAILY 12/15/18 [History] Clopidogrel [Plavix] 75 mg PO DAILY 12/15/18 [History] Doxepin [Sinequan] 50 mg PO HS 12/15/18 [History] Simvastatin [Zocor] 40 mg PO HS 12/15/18 [History] Apixaban [Eliquis] 5 mg PO BID 02/18/19 [History] Fludrocortisone Acetate [Florinef] 0.1 mg PO BID 03/04/19 [History] Ipratropium/Albuterol Neb [Duoneb] 3 ml IH Q4HR PRN 03/04/19 [History] Lisinopril 2.5 mg PO DAILY 03/04/19 [History] lamoTRIgine [Lamictal] 100 mg PO HS 03/04/19 [History] Furosemide [Lasix] 20 mg PO DAILY #14 tablet 03/06/19 [Rx] Dexamethasone [Decadron] 4 mg PO BID PRN #45 tab 03/11/19 [Rx] Dexamethasone [Decadron] 6 mg PO DAILY 03/23/19 [History] Lidocaine/Prilocaine [Emla] 1 appl TP AD 03/23/19 [History] Metformin HCl [Glucophage Xr] 500 mg PO DAILY 03/23/19 [History] Potassium Chloride [K-Tab ER] 20 meq PO DAILY 03/23/19 [History] Prochlorperazine Maleate [Compazine] 10 mg PO Q6HR PRN 03/23/19 [History] Sucralfate [Carafate] 1 gm PO QID 03/23/19 [History] Tiotropium [Spiriva] 18 mcg IH DAILY 03/23/19 [History] clonazePAM [Clonazepam] 1 mg PO QID PRN 03/23/19 [History] Allergy/AdvReac Type Severity Reaction Status Date / Time Penicillins Allergy See Verified 03/23/19 09:19 Comments All Systems: The remainder of the systems were reviewed and are negative Physical Examination Vital Signs: Vital Signs, Last 4 Hours Temp Pulse Resp BP Pulse Ox 03/23/19 21:00 102 15 107/63 96 03/23/19 20:06 98.2 F 03/23/19 20:00 93 15 96/67 96 03/23/19 19:00 99 16 121/65 96 Results - Laboratory Findings CBC and BMP: 03/23/19 02:57 03/23/19 16:29 ABG ABG pH 7.40 pH Units (7.32-7.45) 03/23/19 15:59 ABG pCO2 55 mmHg (35-45) H 03/23/19 15:59 ABG pO2 74 mmHg (85-104) L 03/23/19 15:59 ABG O2 Saturation 94 % (95-98) L 03/23/19 15:59 PT/INR, D-dimer PT 13.8 Seconds (9.4-12.1) H 03/23/19 02:57 Abnormal lab findings: Abnormal lab results WBC 12.0 K/mcL (4.3-11.1) H 03/23/19 02:57 RBC 2.87 M/mcL (3.82-4.97) L 03/23/19 02:57 Hgb 9.7 g/dL (11.5-15.4) L D 03/23/19 02:57 Hct 29.4 % (35.3-44.9) L 03/23/19 02:57 MCV 102.4 fL (83.0-100.0) H 03/23/19 02:57 MCH 33.8 pg (28.0-33.3) H 03/23/19 02:57 RDW 14.7 % (11.5-14.5) H 03/23/19 02:57 Plt Count 60 K/mcL (140-400) L 03/23/19 02:57 Immature Gran % 5.3 % (0-4) H 03/23/19 02:57 10.1 K/mcL (1.6-8.9) H 03/23/19 02:57 Nucleated RBCs/100 WBC 0.9 /100 WBC (0) H 03/23/19 02:57 Decreased (Normal) L 03/23/19 02:57 Immature Plt Fraction 7.6 % (1.1-6.1) H 03/23/19 02:57 PT 13.8 Seconds (9.4-12.1) H 03/23/19 02:57 APTT 21.8 Seconds (26.0-36.0) L 03/23/19 02:57 ABG pCO2 55 mmHg (35-45) H 03/23/19 15:59 ABG pO2 74 mmHg (85-104) L 03/23/19 15:59 ABG HCO3 35 mEq/L (21-27) H 03/23/19 15:59 ABG Total CO2 36 mEq/L (20-26) H 03/23/19 15:59 ABG O2 Saturation 94 % (95-98) L 03/23/19 15:59 ABG Base Excess 8 mEq/L (-2 to 3) H 03/23/19 15:59 Sodium 135 mEq/L (136-145) L 03/23/19 02:57 Potassium 2.9 mEq/L (3.5-5.1) L D 03/23/19 02:57 Chloride 95 mEq/L (98-107) L 03/23/19 02:57 Carbon Dioxide 33 mEq/L (23-29) H 03/23/19 02:57 BUN 7 mg/dL (8-23) L 03/23/19 02:57 0.50 mg/dL (0.60-1.20) L 03/23/19 16:29 Glucose 176 mg/dL (70-105) H 03/23/19 16:29 POC Glucose 183 mg/dL (70-99) H 03/23/19 05:56 Calcium 8.4 mg/dL (8.6-10.3) L 03/23/19 16:29 Magnesium 1.2 mg/dL (1.6-2.6) L 03/23/19 02:57 119 Units/L (34-104) H 03/23/19 02:57 4.8 g/dL (6.4-8.9) L 03/23/19 02:57 2.8 g/dL (3.5-5.7) L 03/23/19 02:57 2.0 g/dL (2.4-3.5) L 03/23/19 02:57 - Microbiology Findings Microbiology Findings: Microbiology, Last 48 Hours 03/22/19 20:25 Blood Culture - Preliminary Peripheral Central Cath, Picc Culture is incubating and being continuously monitored for growth. Final report to follow. 03/22/19 20:27 Blood Culture - Preliminary Peripheral Central Cath, Picc Culture is incubating and being continuously monitored for growth. Final report to follow. - Clinical Findings Intake & Output: Intake & Output 03/23/19 03/23/19 03/23/19 07:59 15:59 23:59 Intake Total 1120 / 2656 1436 / 2656 100 / 2656 Output Total 800 / 1150 350 / 1150 Balance 320 / 1506 1436 / 1506 -250 / 1506 Weight 80.3 kg 81.1 kg Consult Discharge Plan - Plan Referrals: Maisha Ruth, BRANCH ASSISTANT [Primary Care Provider] - - Attending Attestation I examined this patient and my medical decision-making was reviewed with the Resident Physician. I agree with the documented findings, disposition and treatment plan as described except to the extent set forth below. Patient seen and examined. Labs, radiology, chart personally reviewed. 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 Patient is at risk of more clot and IVC filter planning Cardiovascular: Stable, but has borderline hypotensive and be cautious with fluid due to her underlying lung disease. Cosmetic Sales Advisor has seen the patient. GI: Nutrition per dietary and GI prophylaxis per routine and surgery is following up Heme: DVT prophylaxis per routine. Unfortunately patient has lung cancer and oncology has been treating patient ID: Continue antibiotics and plan to de-escalation. Renal; urine out put and renal function reviewed Endorcine: blood glucose is monitored Lines: all lines checked and no evidence of infections and need to check for the HD access Skin: skin care to prevent pressure ulcers per nursing routine care. Poor prognosis <EttaRenée - Last Filed: 03/24/19 06:18> Date of Encounter: 03/24/19 Time of Encounter: 21:59 Assessment and Plan (1) Sepsis Current Visit: Yes Status: Acute SIRS criteria met: HR > 90, RR > 20, and WBC > 12 in the setting of acute c holecystitis BP's were soft on presentation, now improved Tmax 100.6 yesterday morning---> currently afebrile Lactic acid 0.7, 1.[address] [facility] [address] abdomen/pelvis showed gallstones with marked gallbladder wall thickening, suspicious for acute cholecystitis Chronic steroid dependence, receiving stress dose steroids with hydrocortisone 50 mg every 6H 03/22 BCx--NGTD Empiric abx cefepime and flagyl Cautious IVF hydration given her history of HFrEF Continue empiric antibiotics Continue stress dose steroids with hydrocortisone Hold antiplatelets and AC IVC filter tomorrow Tentatively plans for cholecystectomy Monitor BCx for growth Qualifiers: Sepsis type: sepsis due to unspecified organism Qualified Code(s): A41.9 - Sepsis, unspecified organism (2) Acute cholecystitis Current Visit: Yes Status: Acute As above Pre-op evaluation by cardiology--significantly high risk for perioperative adverse cardiac events General surgery following Surgery tentatively planned for 03/25/19 (3) Adrenal insufficiency Current Visit: Yes Status: Acute Started on dexamethasone after chemotherapy and Florinef Stress dose steroids as above (4) Pulmonary embolism Current Visit: Yes Status: Chronic Diagnosed and placed on Eliquis Dec 2018 Repeat CTA in January showed no evidence of PE Continue to hold AC for anticipated surgery IVC filter tomorrow Qualifiers: Pulmonary embolism type: other Chronicity: chronic Acute cor pulmonale presence: without acute cor pulmonale Qualified Code(s): I27.82 - Chronic pul monary embolism (5) HFrEF (heart failure with reduced ejection fraction) Current Visit: Yes Status: Chronic Recent diagnosis of heart failure with reduced EF, January 2019 echo showed LVEF 30-35% Continue to hold lasix and antihypertensives for now Cautious IV hydration for sepsis Qualifiers: Heart failure chronicity: chronic Qualified Code(s): I50.22 - Chronic systolic (congestive) heart failure (6) Squamous cell carcinoma of lung, stage IV Current Visit: Yes Status: Chronic Qualifiers: Laterality: unspecified laterality Qualified Code(s): C34.90 - Malignant neoplasm of unspecified part of unspecified bronchus or lung (7) COPD (chronic obstructive pulmonary disease) Current Visit: Yes Status: Chronic Continue home inhalers Continue duoneb PRN Qualifiers: Emphysema type: unspecified Qualified Code(s): J43.9 - Emphysema, unspecified (8) CAD (coronary artery disease) Current Visit: Yes Status: Chronic Plavix and AC on hold for surgery Qualifiers: Coronary Disease-Associated Artery/Lesion type: [place] artery [place] vs. transplanted heart: unspecified whether [place] or transplanted heart Associated angina: angina presence unspecified Qualified Code(s): I25.10 - Atherosclerotic heart disease of [place] coronary artery without angina pectoris (9) Diabetes mellitus type 2 with complications Current Visit: Yes Status: Chronic Hgb A1c 6.8% in Aug 2018 Low-dose sliding scale coverage Qualifiers: Diabetes mellitus senior care insulin use: without senior care use Qualified Code(s): E11.8 - Type 2 diabetes mellitus with unspecified complications (10) DVT prophylaxis Current Visit: Yes Status: Acute EPCDs History of Present Illness Consult date: 03/23/19 Requesting physician: Patrick Luque Reason for consult: other (sepsis with acute cholecystitis) History of present illness: Ms. Mace is a 63 year old female with PMH stage IV squamous cell carcinoma of the lung, DM, CAD, PE on Eliquis, and COPD with PRN home O2 who initially presented to [facility] with RLQ abdominal pain. Cholecystostomy tube placed in December; tube removed about 2 weeks ago. Since cholecystostomy tube was removed patient has had intermittent RLQ pain that become significantly worse the night prior to her presentation. Admits to nausea and some loose stools, but denies vomiting, fevers, chills, chest pain, or dyspnea. Initial workup performed at [facility] showed WBC 16.7, normal lactic acid, potassium 2.7. [facility] CT a bdomen/pelvis showed gallstones with marked gallbladder wall thickening, suspicious for acute cholecystitis. On arrival to [facility], patient was afebrile and mildly tachycardic, soft BP at 100/71, SpO2 99% on 3 L. Evaluated by general surgery for cholecystectomy. Surgery recommends holding Plavix and placement of IVC filter, possible cholecystectomy on . At time of my exam, she was resting in bed and appeared to be comfortable. No acute distress. No overnight events. Patient complains of nausea, but states she's feeling better overall. Past Med Surg Social Fam HX - Past Medical History Medical history: cancer, CHF, COPD, coronary artery disease, diabetes, hyperlipidemia, pulmonary embolus, other Additional medical history: LUNG CA LAST CHEMO A FEW WEEKS AGO. Psychiatric history: anxiety, bipolar, depression, panic disorder - Past Surgical History Surgical History: angioplasty/stent, carotid endarterectomy, other, vascular s urgery, LE stent (s), LE vascular intervention Additional surgical history: STENTS IN LEGS: Rashaad filter - Social History Smoking Status: Former smoker Smokeless Tobacco Status: No Alcohol use: none Drug use: none - Family History Father Family Member Ethnicity: Non- Living Status: Hx Family Cardiac Disorders: Yes (CHF) Mother Family Member Ethnicity: Non- Living Status: Hx Family Cardiac Disorders: Yes (CHF) Hx Family Neurologic Disorders: Yes All Systems: The remainder of the systems were reviewed and are negative - Constitutional Constitutional: no chills, no fever(s) - Cardiovascular Cardiovascular: leg edema, pedal edema, no chest pain, no dyspnea - Respiratory Respiratory: no cough, no dyspnea - Gastrointestinal Gastrointestinal: abdominal pain, nausea, no diarrhea, no loose stools - Genitourinary Genitourinary: no difficulty urinating, no dysuria Physical Examination Vital Signs: Vital Signs, Last 4 Hours Temp Pulse Resp BP Pulse Ox 03/23/19 21:00 102 15 107/63 96 03/23/19 20:06 98.2 F 03/23/19 20:00 93 15 96/67 96 03/23/19 19:00 99 16 121/65 96 03/23/19 18:09 101 16 136/89 93 General appearance: no acute distress, alert Eyes: nonicteric ENT: oropharynx moist Neck: supple Effort: normal Inspection: normal Auscultation: bilateral: wheezes (faint wheezes) Cardiovascular: irregular rhythm, other (tachycardia) Gastrointestinal: normoactive bowel sounds, soft, non-tender, non-distended, other Integumentary: normal Extremities: no cyanosis, no clubbing, pink and warm, edema (BLE and bilateral pedal edema +2 pitting) normal mental status, non-focal exam, pupils equal and round, CN II-XII normal mood appropriate, affect normal Results - Laboratory Findings CBC and BMP: 03/24/19 05:31 03/24/19 05:31 ABG ABG pH 7.40 pH Units (7.32-7.45) 03/23/19 15:59 ABG pCO2 55 mmHg (35-45) H 03/23/19 15:59 ABG pO2 74 mmHg (85-104) L 03/23/19 15:59 ABG O2 Saturation 94 % (95-98) L 03/23/19 15:59 PT/INR, D-dimer PT 13.8 Seconds (9.4-12.1) H 03/23/19 02:57 Abnormal lab findings: Abnormal lab results WBC 12.0 K/mcL (4.3-11.1) H 03/23/19 02:57 RBC 2.87 M/mcL (3.82-4.97) L 03/23/19 02:57 Hgb 9.7 g/dL (11.5-15.4) L D 03/23/19 02:57 Hct 29.4 % (35.3-44.9) L 03/23/19 02:57 MCV 102.4 fL (83.0-100.0) H 03/23/19 02:57 MCH 33.8 pg (28.0-33.3) H 03/23/19 02:57 RDW 14.7 % (11.5-14.5) H 03/23/19 02:57 Plt Count 60 K/mcL (140-400) L 03/23/19 02:57 Immature Gran % 5.3 % (0-4) H 03/23/19 02:57 10.1 K/mcL (1.6-8.9) H 03/23/19 02:57 Nucleated RBCs/100 WBC 0.9 /100 WBC (0) H 03/23/19 02:57 Decreased (Normal) L 03/23/19 02:57 Immature Plt Fraction 7.6 % (1.1-6.1) H 03/23/19 02:57 PT 13.8 Seconds (9.4-12.1) H 03/23/19 02:57 APTT 21.8 Seconds (26.0-36.0) L 03/23/19 02:57 ABG pCO2 55 mmHg (35-45) H 03/23/19 15:59 ABG pO2 74 mmHg (85-104) L 03/23/19 15:59 ABG HCO3 35 mEq/L (21-27) H 03/23/19 15:59 ABG Total CO2 36 mEq/L (20-26) H 03/23/19 15:59 ABG O2 Saturation 94 % (95-98) L 03/23/19 15:59 ABG Base Excess 8 mEq/L (-2 to 3) H 03/23/19 15:59 Sodium 135 mEq/L (136-145) L 03/23/19 02:57 Potassium 2.9 mEq/L (3.5-5.1) L D 03/23/19 02:57 Chloride 95 mEq/L (98-107) L 03/23/19 02:57 Carbon Dioxide 33 mEq/L (23-29) H 03/23/19 02:57 BUN 7 mg/dL (8-23) L 03/23/19 02:57 0.50 mg/dL (0.60-1.20) L 03/23/19 16:29 Glucose 176 mg/dL (70-105) H 03/23/19 16:29 POC Glucose 183 mg/dL (70-99) H 03/23/19 05:56 Calcium 8.4 mg/dL (8.6-10.3) L 03/23/19 16:29 Magnesium 1.2 mg/dL (1.6-2.6) L 03/23/19 02:57 119 Units/L (34-104) H 03/23/19 02:57 4.8 g/dL (6.4-8.9) L 03/23/19 02:57 2.8 g/dL (3.5-5.7) L 03/23/19 02:57 2.0 g/dL (2.4-3.5) L 03/23/19 02:57 - Microbiology Findings Microbiology Findings: Microbiology, Last 48 Hours 03/22/19 20:25 Blood Culture - Preliminary Peripheral Central Cath, Picc Culture is incubating and being continuously monitored for growth. Final report to follow. 03/22/19 20:27 Blood Culture - Preliminary Peripheral Central Cath, Picc Culture is incubating and being continuously monitored for growth. Final report to follow. - Clinical Findings Intake & Output: Intake & Output 03/23/19 03/23/19 03/23/19 07:59 15:59 23:59 Intake Total 1120 / 2656 1436 / 2656 100 / 2656 Output Total 800 / 1150 350 / 1150 Balance 320 / 1506 1436 / 1506 -250 / 1506 Weight 80.3 kg 81.1 kg
[2019-03-24] MEDS: 0.9 % Sodium Chloride w KCl 40 MEQ/1,000 ML MLS IVC SCH ×2 (03:07→23:00)
[2019-03-24] MEDS: Hydrocortisone Sodium Succ 100 MG/2 ML VIAL IVP SCH ×3 (05:26→21:03)
[2019-03-24] MEDS: Insulin LISPRO 300 UNITS/3 ML VIAL SQ SCH ×4 (05:31→23:19)
[2019-03-24] MEDS: Ondansetron 4 MG/2 ML VIAL IVP PRN ×3 (05:37→23:13)
[2019-03-24] MEDS: OXYCODONE Oral CONC 10 MG/0.5 ML ORAL.SYG SL PRN ×4 (05:37→23:05)
[2019-03-24 05:57] LABS: Mean Platelet Volume 11.2 fL (9.4-12.4)
[2019-03-24 05:59] LABS: Hematocrit 29.2 % (35.3-44.9); Hemoglobin 9.4 g/dL (11.5-15.4); Immature Platelets 8.1 % (1.1-6.1); Mean Corpuscular HGB Conc 32.2 g/dL (31.6-35.5); Mean Corpuscular Hemoglobin 33.1 pg (28.0-33.3); Mean Corpuscular Volume 102.8 fL (83.0-100.0); Nucleated Red Blood Cells 0.2 /100 WBC (0); Red Blood Count 2.84 M/mcL (3.82-4.97); Red Cell Distribution Width 14.4 % (11.5-14.5)
[2019-03-24 06:02] LABS: Platelet Count 80 K/mcL (140-400)
[2019-03-24 06:06] LABS: INR 1.2; Prothrombin Time 13.1 Seconds (9.4-12.1)
[2019-03-24 06:14] LABS: BUN/Creatinine Ratio 28 (6-26); Blood Urea Nitrogen 12 mg/dL (8-23); Calcium 8.6 mg/dL (8.6-10.3); Carbon Dioxide 33 mEq/L (23-29); Chloride 102 mEq/L (98-107); Glucose 126 mg/dL (70-105); Magnesium 1.8 mg/dL (1.6-2.6); Osmolality,Calculated 291 (280-300); Potassium 3.3 mEq/L (3.5-5.1); Sodium 140 mEq/L (136-145); eGFR For Non-African Americans > 60 (> 60)
[2019-03-24 06:27] LABS: Lymphocytes # 0.4 K/mcL (0.6-4.6); Neutrophils # 17.1 K/mcL (1.6-8.9)
[2019-03-24 06:28] LABS: Platelet Estimate Slight Decrease (Normal)
--- NOTE | 2019-03-24 07:32 | Internal Med Progress Note ---
Hospitalist Progress Note - Encounter Date of Encounter: 03/24/19 Time of Encounter: 07:30 - Subjective Interval History: Patient seen and examined this morning at bedside. No acute overnight events. Denies new complaints. He has mild right upper quadrant pain. Does not have any bowel movement. 350 mL urine output overnight. Afebrile. - Exam Vitals: Temp Pulse Resp BP Pulse Ox 97.7 F 98 15 127/81 93 03/24/19 07:07 03/24/19 06:00 03/24/19 06:00 03/24/19 06:00 03/24/19 06:00 Exam: General: In no acute distress. Respiratory exam: CTAB. Occasional rhonchi. No accessory muscle use. No rales Cardiovascular exam: RRR, +S1, +S2. no murmur, gallop, rubs. GI/Abdominal exam: RUQ tenderness with voluntary guarding, soft, no peritoneal signs, Decreased BS Extremities exam: 1+ pedal edema, no calf tenderness Neurological exam: CN II-XII intact, AO X3, no focal deficits. - Assessment and Plan (1) Diabetes mellitus type 2 with complications Current Visit: Yes Status: Chronic (2) Adrenal insufficiency Current Visit: Yes Status: Acute (3) Squamous cell carcinoma of lung, stage IV Current Visit: Yes Status: Chronic (4) Pulmonary embolism Current Visit: Yes Status: Chronic (5) DVT prophylaxis Current Visit: Yes Status: Acute (6) Acute cholecystitis Current Visit: Yes Status: Acute (7) Sepsis Current Visit: Yes Status: Acute (8) COPD (chronic obstructive pulmonary disease) Current Visit: Yes Status: Chronic (9) HFrEF (heart failure with reduced ejection fraction) Current Visit: Yes Status: Chronic (10) CAD (coronary artery disease) Current Visit: Yes Status: Chronic - Summary of Assessment and Plan Summary of Assessment and Plan: Sepsis - Secondary to acute cholecystitis. Improving. - c/w empiric cefepime and flagyl - Lactic acid normal. BP improved with IVF and steroid. c/w IVF at 75 cc given h/o HFrEF and monitor closely respiratory status. Will stop iVF after 1 Lit today. adequate urine output - Plan for IVC to decreased changes of embolic event. Hold off on antiplatelets and AC. IVC filter today and plan for surgery on - blood cultures NGTD Acute cholecystitis - recently had drain removed came with acute cholecystitis - very high risk pt for GA, recently diagnosed HFrEF but declined LHC at that time - high risk for surgery per cardiology. Discussed with patient. Pulmonary embolism - Diagnosis of December 2018, had been on Eliquis since then - Repeat CTA in January did not show any evidence of PE - Hold AC for surgery. IVC filter today. HFrEF - Recent diagnosis with EF 30-35% on echo 01/2019. Declined LHC at that time - natalio-i on hold due to borderline BP - c/w careful hydration COPD - Not in exacerbation - c/w symbicort and duoneb PRN Adrenal insufficiency - On dexamethasone after chemotherapy and Florinef - Taper stress dose steroids Diabetes mellitus type 2 with complications - SSI and accuchecks. NPO for now CAD - Plavix held for surgery - BP medication on hold Goals of care, counseling/discussion - Palliative care from January 2019, initially made DNR CCA but reverted her CODE STATUS after discussing with the daughter - Patient with high risk for surgery and poor prognosis overall regardless, which patient understands but wants to stay as full code after prolonged discussion - palliative care consulted DVT prophylaxis - EPCD - Time Spent with Patient Total time spent is greater than 50% in coordination of care (as documented) at patient's floor/unit and/or counseling patient: Internal Medicine: Result - Labs CBC & Chem 7: 03/24/19 05:31 03/24/19 05:31 Labs: Short CBC 03/24/19 Range/Units 05:31 WBC 17.4 H (4.3-11.1) K/mcL Hgb 9.4 L (11.5-15.4) g/dL Hct 29.2 L (35.3-44.9) % Plt Count 80 L (140-400) K/mcL Neutrophils # 17.1 H (1.6-8.9) K/mcL BMP 03/23/19 03/24/19 16:29 05:31 Sodium 139 140 Potassium 3.9 D 3.3 L Chloride 103 102 Carbon Dioxide 29 33 H BUN 11 12 Creatinine 0.50 L 0.43 L Glucose 176 H 126 H Calcium 8.4 L 8.6 - ABG Interpretation ABG results: ABG ABG pH 7.40 pH Units (7.32-7.45) 03/23/19 15:59 ABG pCO2 55 mmHg (35-45) H 03/23/19 15:59 ABG pO2 74 mmHg (85-104) L 03/23/19 15:59 ABG O2 Saturation 94 % (95-98) L 03/23/19 15:59 PT/INR, D-dimer PT 13.1 Seconds (9.4-12.1) H 03/24/19 05:31 Consult Discharge Plan - Plan Referrals: Maisha Ruth, MACHINE STACKER [Primary Care Provider] - (1) Diabetes mellitus type 2 with complications Qualifiers: Diabetes mellitus mcc insulin use: without mcc use Qualified Code(s): E11.8 - Type 2 diabetes mellitus with unspecified complications (3) Squamous cell carcinoma of lung, stage IV Qualifiers: Laterality: unspecified laterality Qualified Code(s): C34.90 - Malignant neoplasm of unspecified part of unspecified bronchus or lung (4) Pulmonary embolism Qualifiers: Pulmonary embolism type: other Chronicity: chronic Acute cor pulmonale presence: without acute cor pulmonale Qualified Code(s): I27.82 - Chronic pulmonary embolism (7) Sepsis Qualifiers: Sepsis type: sepsis due to unspecified organism Qualified Code(s): A41.9 - Sepsis, unspecified organism (8) COPD (chronic obstructive pulmonary disease) Qualifiers: Emphysema type: unspecified Qualified Code(s): J43.9 - Emphysema, unspecified (9) HFrEF (heart failure with reduced ejection fraction) Qualifiers: Heart failure chronicity: chronic Qualified Code(s): I50.22 - Chronic systolic (congestive) heart failure (10) CAD (coronary artery disease) Qualifiers: Coronary Disease-Associated Artery/Lesion type: [place] artery [place] vs. transplanted heart: unspecified whether [place] or transplanted heart Associated angina: angina presence unspecified Qualified Code(s): I25.10 - Atherosclerotic heart disease of [place] coronary artery without angina pectoris
[2019-03-24] MEDS: Budesonide/Formoterol 160/4.5 1 PUFF INH IH SCH ×2 (07:35→19:55)
[2019-03-24] MEDS: Sucralfate 1 GM TABLET PO SCH ×4 (07:45→21:03)
[2019-03-24] MEDS: Cefepime HCl 2,000 MG in Water for inj. (sterile) 20 ML 20 ML IVP SCH ×3 (08:22→23:04)
[2019-03-24] MEDS: MetroNIDAZOLE 500 MG/100 ML 500 MG/100 ML BAG IVPB SCH ×3 (08:22→23:06)
[2019-03-24] MEDS: *HR* Promethazine 25 MG/ML VIAL IVP PRN (08:23)
--- NOTE | 2019-03-24 09:04 | Event Note ---
<Bacilio Chiang - Last Filed: 03/24/19 09:02> Date of Encounter: 03/24/19 Time of Encounter: 09:02 Patient did well overnight, no acute events. She is scheduled for IVC filter placement today, she is under the care of hospitalist team. She will be transferred out of ICU in stable condition. <KristynVj M - Last Filed: 03/24/19 10:04> Date of Encounter: 03/24/19 I examined this patient and my medical decision-making was reviewed with the Resident Physician. I agree with the documented findings, disposition and treatment plan as described except to the extent set forth below. Patient seen and examined. Labs, radiology, chart personally reviewed. 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
[2019-03-24] MEDS ORDERED: Heparin 1,000 UNITS/500 mL 500 ML ONE (09:07)
[2019-03-24] MEDS ORDERED: Isovue-300 50 ML VIAL IVP ONE (10:03)
--- NOTE | 2019-03-24 10:22 | AcuteCareSurgery Progress Note ---
Date of Encounter: 03/24/19 Time of Encounter: 10:17 - Assessment and Plan (1) Cholelithiasis Current Visit: No Status: Chronic 63F with acute cholecystitis; also with other medical issues; will require IVC filter prior to surgery diet as tolerated NPO at midnight IV abx surgical risk stratification per primary team IVF at midnight okay to transfer from ICU cont to hold plavix plan for surg on 03/25 Qualifiers: Cholelithiasis location: gallbladder Cholecystitis presence: without cholecystitis Biliary obstruction: without biliary obstruction Qualified C ode(s): K80.20 - Calculus of gallbladder without cholecystitis without obstruction Subjective Patient reports: no new complaints, feels better, still having pain, pain is less (but patient is on steroids), afebrile Objective Vital Signs - Last 8 Hours Temp Pulse Resp BP Pulse Ox 03/24/19 10:05 104 16 162/79 91 03/24/19 10:01 103 15 89/60 91 03/24/19 09:00 97 14 127/84 93 03/24/19 08:00 99 14 128/76 91 03/24/19 07:36 15 93 03/24/19 07:07 97.7 F 03/24/19 07:00 97 18 138/62 94 03/24/19 06:00 98 15 127/81 93 03/24/19 05:00 104 17 149/86 95 03/24/19 04:38 98.8 F 03/24/19 04:00 96 12 125/84 97 03/24/19 03:00 99 16 131/66 94 Intake and Output 03/23/19 03/24/19 03/24/19 23:59 07:59 15:59 Intake Total 120 / 2676 1120 / 1120 Output Total 350 / 1150 200 / 200 Balance -230 / 1526 920 / 920 Intake: IV Fluids 120 / 2676 1120 / 1120 KCl 40mEq in 0.9% Sodium 1000 / 1000 Chloride 40 meq In 1,000 ml @ 75 mls/hr IVC .[id number] [facility] Rx#: [id number] Maxipime 2,000 MG In Water for 20 / 20 inj. (sterile) 20 ML @ 300 mls/ hr IVP Q8HR [facility] Rx#:[id number] Flagyl Premix 500 MG/100 ML 500 100 / 200 100 / 100 mg In 100 ml @ 100 mls/hr IVPB Q8HR [facility] Rx#:[id number] Oral 0 / 0 Output: Urine 350 / 1150 200 / 200 Other: Weight 80.4 kg 80.4 kg Patient Weight 03/24/19 23:59 Weight 80.4 kg - General physical appearance no distress - Respiratory normal expansion, normal respiratory effort - Cardiovascular Cardiovascular exam: Present: RRR - Abdomen Abdomen: Present: soft, tender - Labs 03/24/19 05:31 03/24/19 05:31 Diabetes panel 03/23/19 03/24/19 Range/Units 16:29 05:31 Sodium 139 140 (136-145) mEq/L Potassium 3.9 D 3.3 L (3.5-5.1) mEq/L Chloride 103 102 (98-107) mEq/L Carbon Dioxide 29 33 H (23-29) mEq/L BUN 11 12 (8-23) mg/dL Creatinine 0.50 L 0.43 L (0.60-1.20) mg/dL Glucose 176 H 126 H (70-105) mg/dL Calcium 8.4 L 8.6 (8.6-10.3) mg/dL Calcium panel 03/23/19 03/24/19 Range/Units 16:29 05:31 Calcium 8.4 L 8.6 (8.6-10.3) mg/dL Pituitary panel 03/23/19 03/24/19 Range/Units 16:29 05:31 Sodium 139 140 (136-145) mEq/L Potassium 3.9 D 3.3 L (3.5-5.1) mEq/L Chloride 103 102 (98-107) mEq/L Carbon Dioxide 29 33 H (23-29) mEq/L BUN 11 12 (8-23) mg/dL Creatinine 0.50 L 0.43 L (0.60-1.20) mg/dL Glucose 176 H 126 H (70-105) mg/dL Calcium 8.4 L 8.6 (8.6-10.3) mg/dL Adrenal panel 03/23/19 03/24/19 Range/Units 16:29 05:31 Sodium 139 140 (136-145) mEq/L Potassium 3.9 D 3.3 L (3.5-5.1) mEq/L Chloride 103 102 (98-107) mEq/L Carbon Dioxide 29 33 H (23-29) mEq/L BUN 11 12 (8-23) mg/dL Creatinine 0.50 L 0.43 L (0.60-1.20) mg/dL Glucose 176 H 126 H (70-105) mg/dL Calcium 8.4 L 8.6 (8.6-10.3) mg/dL Consult Discharge Plan - Plan Referrals: Maisha Ruth, TRANSPORTATION AID [Primary Care Provider] -
--- NOTE | 2019-03-24 12:18 | IR Procedure Note ---
Date of procedure: 03/24/19 Consent Obtained: Written consent Timeout: Correct patient and procedure verified, Correct site verified, Time out performed, Skin prep completed Local anesthetic: Lidocaine 1% Indications: DVT Procedure Performed: IVC filter Was there an physiotherapist's assistant present: No Site/Technique: rt femoral access, deployment in infrarenal IVC Results/Findings: adequate placement Estimated blood loss (cc): 2 Complications: None; Tolerated procedure well Post Procedure Treatment Plan: recovery Specimen: none
--- NOTE | 2019-03-24 16:56 | Palliative Progress Note ---
Date of Encounter: 03/24/19 Time of Encounter: 11:30 - Assessment and plan (1) Abdominal pain Current Visit: Yes Status: Acute Assessment and plan: Patient has RUQ tenderness and pain, On Oxycodone 5 mg every 4 hours when necessary sublingual, will continue current. Qualifiers: Abdominal location: right upper quadrant Qualified Code(s): R10.11 - Right upper quadrant pain (2) Goals of care, counseling/discussion Current Visit: No Status: Chronic Assessment and plan: 20 minutes goals of care discussion with patient. Discussed current medical condition, trajectory of illness, prognosis and treatment options. Patient stated that she specifically came to the hospital so that her gallbladder can be taken care of, she is away that surgery would be high risk, however she wants a chance to get a repeat of the pain and be stable enough so she can concentrate on fighting. Patient's goal is to get better and continue treatment with oncology for her cancer. Patient states that she had her first chemotherapy a few days ago and tolerated it well. Patient confirmed her CODE STATUS to DNR CCA, with a trial of intubation. Patient's goals of care are clear, palliative care will continue to follow for pain and symptom management. (3) Palliative care encounter Current Visit: Yes Status: Acute (4) Acute cholecystitis Current Visit: No Status: Acute Assessment and plan: s/p IVC filter placement, scheduled for surgery today. management per surgery. (5) Sepsis Current Visit: Yes Status: Acute Assessment and plan: Patient vitals are stable. management per primary team. Qualifiers: Sepsis type: sepsis due to unspecified organism Qualified Code(s): A41.9 - Sepsis, unspecified organism (6) Lung cancer Current Visit: No Status: Chronic Assessment and plan: Patient to follow up with oncology for continued treatment. Qualifiers: Laterality: right Lung location: upper lobe of lung Qualified Code(s): C34.11 - Malignant neoplasm of upper lobe, right bronchus or lung - Time Spent With Patient Total time spent is greater than 50% in coordination of care (as documented) at patient's floor/unit and/or counseling patient: 25 - 35 minutes - Subjective Interval history: Patient was AAO x3, BP stable. she was s/p IVC filter. Stated to be feeling ok. - Constitutional Vitals: Abnormal lab results WBC 17.4 K/mcL (4.3-11.1) H 03/24/19 05:31 RBC 2.84 M/mcL (3.82-4.97) L 03/24/19 05:31 Hgb 9.4 g/dL (11.5-15.4) L 03/24/19 05:31 Hct 29.2 % (35.3-44.9) L 03/24/19 05:31 MCV 102.8 fL (83.0-100.0) H 03/24/19 05:31 MCH 33.8 pg (28.0-33.3) H 03/23/19 02:57 RDW 14.7 % (11.5-14.5) H 03/23/19 02:57 Plt Count 80 K/mcL (140-400) L 03/24/19 05:31 Immature Gran % 5.3 % (0-4) H 03/23/19 02:57 8.0 % (0-4) H 03/24/19 05:31 17.1 K/mcL (1.6-8.9) H 03/24/19 05:31 0.4 K/mcL (0.6-4.6) L 03/24/19 05:31 Nucleated RBCs/100 WBC 0.2 /100 WBC (0) H 03/24/19 05:31 Slight Decrease (Normal) L 03/24/19 05:31 Immature Plt Fraction 8.1 % (1.1-6.1) H 03/24/19 05:31 PT 13.1 Seconds (9.4-12.1) H 03/24/19 05:31 APTT 21.8 Seconds (26.0-36.0) L 03/23/19 02:57 ABG pCO2 55 mmHg (35-45) H 03/23/19 15:59 ABG pO2 74 mmHg (85-104) L 03/23/19 15:59 ABG HCO3 35 mEq/L (21-27) H 03/23/19 15:59 ABG Total CO2 36 mEq/L (20-26) H 03/23/19 15:59 ABG O2 Saturation 94 % (95-98) L 03/23/19 15:59 ABG Base Excess 8 mEq/L (-2 to 3) H 03/23/19 15:59 Sodium 135 mEq/L (136-145) L 03/23/19 02:57 Potassium 3.3 mEq/L (3.5-5.1) L 03/24/19 05:31 Chloride 95 mEq/L (98-107) L 03/23/19 02:57 Carbon Dioxide 33 mEq/L (23-29) H 03/24/19 05:31 BUN 7 mg/dL (8-23) L 03/23/19 02:57 0.43 mg/dL (0.60-1.20) L 03/24/19 05:31 28 (6-26) H 03/24/19 05:31 Glucose 126 mg/dL (70-105) H 03/24/19 05:31 POC Glucose 176 mg/dL (70-99) H 03/23/19 17:50 Calcium 8.4 mg/dL (8.6-10.3) L 03/23/19 16:29 Magnesium 1.2 mg/dL (1.6-2.6) L 03/23/19 02:57 119 Units/L (34-104) H 03/23/19 02:57 4.8 g/dL (6.4-8.9) L 03/23/19 02:57 2.8 g/dL (3.5-5.7) L 03/23/19 02:57 2.0 g/dL (2.4-3.5) L 03/23/19 02:57 Exam: eneral appearance: Present: obese Exam: alert, cooperative. - Head Head Exam: Present: atraumatic - Eye Eye exam: Present: EOMI - ENT ENT exam: Present: mucous membranes moist - Neck Neck exam: Present: normal inspection - Respiratory Respiratory exam: Present: CTAB. Absent: respiratory distress - Cardiovascular Cardiovascular exam: Present: +S1, +S2 - GI/Abdominal Exam GI/Abdominal exam: Present: normal bowel sounds, tenderness (RUQ) - Extremities Exam Extremities exam: Present: normal inspection. Absent: pedal edema - Neurological Exam Neurological exam: Present: AAOx3, no focal neurologic defects. Additional comments: Palliative Quality Palliative Quality: Screen for Code Status: Yes, Screen for Goals of Care: Yes, Screen for Pain: Yes, If Pain Regimen Started, Initiate Bowel Regimen: Yes, Screen for Nausea/Vomitting: Yes Code Status: 03/22/19 19:56 Resuscitation Status: Active [RES] Routine Comment: Resuscitation Status: Full Code 03/23/19 16:38 Resuscitation Status: Active [RES] Routine Comment: Resuscitation Status: DNR-Comfort Care-Arrest - Labs CBC & Chem 7: 03/24/19 05:31 03/24/19 05:31 Labs: Laboratory Results - last 24 hr 03/23/19 03/23/19 03/23/19 11:30 13:50 16:29 WBC RBC Hgb Hct MCV MCH MCHC RDW Plt Count MPV Seg Neutrophils % Band Neutrophils % Lymphocytes % Neutrophils # Lymphocytes # Nucleated RBCs/100 WBC Platelet Estimate Immature Plt Fraction PT INR Sodium 139 Potassium 3.9 D Chloride 103 Carbon Dioxide 29 BUN 11 Creatinine 0.50 L Est GFR ( Amer) > 60 Est GFR (Non-Af Amer) > 60 BUN/Creatinine Ratio 22 Glucose 176 H POC Glucose 237 H 241 H Calculated Osmolality 292 Calcium 8.4 L Magnesium 03/23/19 03/23/19 03/24/19 16:29 17:50 05:31 WBC 17.4 H RBC 2.84 L Hgb 9.4 L Hct 29.2 L MCV 102.8 H MCH 33.1 MCHC 32.2 RDW 14.4 Plt Count 80 L MPV 11.2 Seg Neutrophils % 90.0 Band Neutrophils % 8.0 H Lymphocytes % 2.0 Neutrophils # 17.1 H Lymphocytes # 0.4 L Nucleated RBCs/100 WBC 0.2 H Platelet Estimate Slight Decrease L Immature Plt Fraction 8.1 H PT INR Sodium Potassium Chloride Carbon Dioxide BUN Creatinine Est GFR ( Amer) Est GFR (Non-Af Amer) BUN/Creatinine Ratio Glucose POC Glucose 176 H Calculated Osmolality Calcium Magnesium 1.9 03/24/19 03/24/19 05:31 05:31 WBC RBC Hgb Hct MCV MCH MCHC RDW Plt Count MPV Seg Neutrophils % Band Neutrophils % Lymphocytes % Neutrophils # Lymphocytes # Nucleated RBCs/100 WBC Platelet Estimate Immature Plt Fraction PT 13.1 H INR 1.2 Sodium 140 Potassium 3.3 L Chloride 102 Carbon Dioxide 33 H BUN 12 Creatinine 0.43 L Est GFR ( Amer) > 60 Est GFR (Non-Af Amer) > 60 BUN/Creatinine Ratio 28 H Glucose 126 H POC Glucose Calculated Osmolality 291 Calcium 8.6 Magnesium 1.8 - Impressions Impressions Guidance Ultrasound 05/01/19 00:00 IMPRESSION: 1. 1. IVC has normal appearance, suitable for filter placement. 2. 2. Infrarenal inferior vena cava filter placement as discussed above. D/ / 03/24/2019 12:10:25 Reema Lawson MD / radha Interpreting Provider: Reema Lawson MD Filter Placement 03/24/19 07:00 IMPRESSION: 1. 1. IVC has normal appearance, suitable for filter placement. 2. 2. Infrarenal inferior vena cava filter placement as discussed above. D/ / 03/24/2019 12:10:25 Reema Lawson MD / radha Interpreting Provider: Reema Lawson MD - ABG Interpretation ABG results: ABG ABG pH 7.40 pH Units (7.32-7.45) 03/23/19 15:59 ABG pCO2 55 mmHg (35-45) H 03/23/19 15:59 ABG pO2 74 mmHg (85-104) L 03/23/19 15:59 ABG O2 Saturation 94 % (95-98) L 03/23/19 15:59 PT/INR, D-dimer PT 13.1 Seconds (9.4-12.1) H 03/24/19 05:31 Palliative Scale - Palliative Performance Scale How ambulatory is this patient?: Mainly sit / lie What is patient's level of activity and evidence of disease?: Unable to do any work, Extensive disease How much self-care assistance does patient require?: Mainly assistance How much oral intake does the patient have?: Normal or reduced What is this patient's level of consciousness?: Full or confusion Palliative Performance Score: 50 % Consult Discharge Plan - Plan Referrals: Maisha Ruth, MEDICATION MANAGER [Primary Care Provider] -
--- NOTE | 2019-03-24 18:29 | Anesthesia Evaluation PreOp ---
Date of Encounter: 03/24/19 Time of Encounter: 18:27 - Past History Planned Operation: Lap cholecystectomy Cardiac History: CHF (ischemic cardiomyopathy with most recent echo showing EF of 30-35%.Severe global left ventricular systolic dysfunction. Coronary angiogram in May 2017 showed LAD with a 100% prox LAD stenosis with ipsilateral collaterals. The 1st Diagonal has mild disease. 30% mid LCx stenosis, 50% stenosis in the OM. The RCA is non dominant, small in size, angiographically free of disease.), HTN, Hyperlipidemia, Other (Per sheet metal foreman note: Patient is currently hypotensive and in heart failure. In addition, she has a RCRI class IV risk, which confers a significantly high risk for perioperative adverse cardiac events. 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, Other (anxiety, depression, bipolar d/o) Other Medical History: Diabetes Type II, Other (sepsis) Anesthesia History: No Prior Anesthetic Complications, Past Anesthesia ( PVDz s/p PCI/stents BLE, s/p bilateral CEA) Alcohol Use: none Drug use: none Medications and Allergies Budesonide/Formoterol 160/4.5 [Symbicort 160/4.5] 2 puff IH BID 12/14/18 [History] Cilostazol [Pletal] 100 mg PO BID 12/14/18 [History] HYDROcodone/Acet 7.5/325 mg [Harrold 7.5-325 mg] 1 tab PO Q6H PRN 12/14/18 [History] Zolpidem [Ambien] 10 mg PO HS PRN 12/14/18 [History] risperiDONE [Risperidone] 1 mg PO HS 12/14/18 [History] Citalopram [CeleXA] 40 mg PO DAILY 12/15/18 [History] Clopidogrel [Plavix] 75 mg PO DAILY 12/15/18 [History] Doxepin [Sinequan] 50 mg PO HS 12/15/18 [History] Simvastatin [Zocor] 40 mg PO HS 12/15/18 [History] Apixaban [Eliquis] 5 mg PO BID 02/18/19 [History] Fludrocortisone Acetate [Florinef] 0.1 mg PO BID 03/04/19 [History] Ipratropium/Albuterol Neb [Duoneb] 3 ml IH Q4HR PRN 03/04/19 [History] Lisinopril 2.5 mg PO DAILY 03/04/19 [History] lamoTRIgine [Lamictal] 100 mg PO HS 03/04/19 [History] Furosemide [Lasix] 20 mg PO DAILY #14 tablet 03/06/19 [Rx] Dexamethasone [Decadron] 4 mg PO BID PRN #45 tab 03/11/19 [Rx] Dexamethasone [Decadron] 6 mg PO DAILY 03/23/19 [History] Lidocaine/Prilocaine [Emla] 1 appl TP AD 03/23/19 [History] Metformin HCl [Glucophage Xr] 500 mg PO DAILY 03/23/19 [History] Potassium Chloride [K-Tab ER] 20 meq PO DAILY 03/23/19 [History] Prochlorperazine Maleate [Compazine] 10 mg PO Q6HR PRN 03/23/19 [History] Sucralfate [Carafate] 1 gm PO QID 03/23/19 [History] Tiotropium [Spiriva] 18 mcg IH DAILY 03/23/19 [History] clonazePAM [Clonazepam] 1 mg PO QID PRN 03/23/19 [History] Allergy/AdvReac Type Severity Reaction Status Date / Time Penicillins Allergy See Verified 03/23/19 09:19 Comments - Meds/Allergy Pre-op Review Medications Reviewed: Yes Allergies Reviewed: Yes Beta Blockers on Current Med List: No Anesthesia Results - Labs 03/24/19 05:31 03/24/19 05:31 - Imaging EKG: report reviewed (Sinus tachycardia Probable left atrial enlargement Anteroseptal infarct, old Repol abnrm, severe global ischemia Electronically Signed On 03-23-2019 15:14:58 EDT by Yony Genao) Additional studies: ECHO 01/27/19 Impressions: LVEF 30-35%. Normal LV chamber size, wall thickness. Severe global left ventricular systolic dysfunction. Compared to prior reports, LVEF has decreased. Cardiology service notified of findings. Echo 05/2017 Impressions: LVEF 60%. There is hypokinesis of the mid anteroseptum and apical septum. Moderate left ventricular diastolic dysfunction. Normal right ventricular size and function. Mild-moderately dilated left atrium. No significant valvular dysfunction. No evidence of pulmonary hypertension. There is calcified atherosclerotic plaque noted in the aortic root. 05/2017 [facility] Impressions: There is mild one vessel coronary artery disease. The left ventricle is normal and has normal contractility EF 65% There is severe one vessel coronary artery disease which has ipsilateral collaterals Recommendations: Optimal medical therapy of patient's disease. Aggressive risk factor modification. 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 Motor: Normal RUE, Normal LUE, Normal RLE, Normal LLE, Normal Face [employer] TURNING MACHINE FEEDER Sensory: Normal: RUE, LUE, RLE, LLE, Face - Cardiac Rhythm: Regular - Pulmonary Breath Sounds: bilateral Clear Respiratory Effort: Labored Anesthesia Assess/Plan ASA Score: 4 (metastatic stage IV lung ca on chemo, CHF with EF 30-35%, COPD, PE, HTN, DM, PAD, anxiety, depression, TIA) Level of consciousness: Cooperative Anesthetic Plan: General (High risk of intraop cardiac , pulmonary compl ications, prolonged intubation and ICU stay all these risks were discussed with patient) Monitoring Plan: Standard Monitors, A-Line Recovery Plan: PACU (high risk for ICU stay)
[2019-03-24] MEDS: risperiDONE 1 MG TABLET PO SCH (21:03)
[2019-03-24] MEDS: lamoTRIgine 100 MG TABLET PO SCH (21:03)
[2019-03-25 03:51] LABS: Hemoglobin 8.4 g/dL (11.5-15.4); Mean Platelet Volume 10.6 fL (9.4-12.4); Red Cell Distribution Width 14.5 % (11.5-14.5)
[2019-03-25 03:52] LABS: Basophils % 0.1 %; Hematocrit 26.2 % (35.3-44.9); Immature Granulocytes % 4.5 % (0-4); Immature Platelets 6.3 % (1.1-6.1); Lymphocytes # 0.4 K/mcL (0.6-4.6); Lymphocytes % 3.4 %; Mean Corpuscular HGB Conc 32.1 g/dL (31.6-35.5); Mean Corpuscular Hemoglobin 33.7 pg (28.0-33.3); Mean Corpuscular Volume 105.2 fL (83.0-100.0); Monocytes # 0.4 K/mcL (0.0-1.3); Neutrophils # 10.8 K/mcL (1.6-8.9); Nucleated Red Blood Cells 0.3 /100 WBC (0); Red Blood Count 2.49 M/mcL (3.82-4.97)
[2019-03-25 03:54] LABS: Platelet Count 95 K/mcL (140-400)
[2019-03-25 04:11] LABS: BUN/Creatinine Ratio 26 (6-26); Blood Urea Nitrogen 13 mg/dL (8-23); Carbon Dioxide 30 mEq/L (23-29); Chloride 106 mEq/L (98-107); Glucose 199 mg/dL (70-105); Osmolality,Calculated 294 (280-300); Potassium 3.5 mEq/L (3.5-5.1); Sodium 139 mEq/L (136-145); eGFR For Non-African Americans > 60 (> 60)
[2019-03-25] MEDS: Hydrocortisone Sodium Succ 100 MG/2 ML VIAL IVP SCH ×2 (05:32→21:21)
[2019-03-25] MEDS: Insulin LISPRO 300 UNITS/3 ML VIAL SQ SCH ×3 (05:35→23:28)
[2019-03-25] MEDS: Budesonide/Formoterol 160/4.5 1 PUFF INH IH SCH ×2 (07:54→21:32)
[2019-03-25] MEDS: Cefepime HCl 2,000 MG in Water for inj. (sterile) 20 ML 20 ML IVP SCH ×3 (08:24→23:25)
[2019-03-25] MEDS: Sucralfate 1 GM TABLET PO SCH ×3 (08:24→21:21)
[2019-03-25] MEDS: MetroNIDAZOLE 500 MG/100 ML 500 MG/100 ML BAG IVPB SCH ×3 (09:03→23:25)
--- NOTE | 2019-03-25 09:39 | Internal Med Progress Note ---
Hospitalist Progress Note - Encounter Date of Encounter: 03/25/19 Time of Encounter: 09:38 - Subjective Interval History: Patient seen and examined this morning. No acute overnight events. Denies new complaints. Denies chest pain and difficulty breathing. Currently nothing by mouth for surgery. - Exam Vitals: Temp Pulse Resp BP Pulse Ox 98.0 F 98 17 134/94 96 03/25/19 06:30 03/25/19 06:30 03/25/19 07:55 03/25/19 06:30 03/25/19 07:55 Exam: General: In no acute distress. Respiratory exam: CTAB. Occasional rhonchi. No accessory muscle use. No rales Cardiovascular exam: RRR, +S1, +S2. no murmur, gallop, rubs. GI/Abdominal exam: RUQ tenderness with voluntary guarding, soft, no peritoneal signs, Decreased BS Extremities exam: 1+ pedal edema, no calf tenderness Neurological exam: CN II-XII intact, AO X3, no focal deficits. - Assessment and Plan (1) Diabetes mellitus type 2 with complications Current Visit: Yes Status: Chronic (2) Adrenal insufficiency Current Visit: Yes Status: Acute (3) Squamous cell carcinoma of lung, stage IV Current Visit: Yes Status: Chronic (4) Pulmonary embolism Current Visit: Yes Status: Chronic (5) DVT prophylaxis Current Visit: Yes Status: Acute (6) Acute cholecystitis Current Visit: Yes Status: Acute (7) Sepsis Current Visit: Yes Status: Acute (8) COPD (chronic obstructive pulmonary disease) Current Visit: Yes Status: Chronic (9) HFrEF (heart failure with reduced ejection fraction) Current Visit: Yes Status: Chronic (10) CAD (coronary artery disease) Current Visit: Yes Status: Chronic - Summary of Assessment and Plan Summary of Assessment and Plan: Sepsis - Secondary to acute cholecystitis. Clinically improving. - c/w empiric cefepime and flagyl - s/p IVC. Hold off on antiplatelets and AC - Plan for cholecystectomy today. Patient aware of the high risk with surgery. Code status DNR CCA with trial of intubation. Palliative care following. - blood cultures NGTD Acute cholecystitis - recently had drain removed came with acute cholecystitis - very high risk pt for GA, recently diagnosed HFrEF but declined LHC at that time - high risk for surgery. Plan for surgery as above. Pulmonary embolism - Diagnosis of December 2018, had been on Eliquis since then - Repeat CTA in January did not show any evidence of PE - Hold AC for surgery. IVC filter today. HFrEF - Recent diagnosis with EF 30-35% on echo 01/2019. Declined LHC at that time - natailo-i on hold due to borderline BP COPD - Not in exacerbation - c/w symbicort and duoneb PRN Adrenal insufficiency - On dexamethasone after chemotherapy and Florinef - Taper stress dose steroids Diabetes mellitus type 2 with complications - SSI and accuchecks. NPO for now CAD - Plavix held for surgery - BP medication on hold Goals of care, counseling/discussion - palliative care consulted. Patient DNR CCA with trial of intubation. DVT prophylaxis - EPCD - Time Spent with Patient Total time spent is greater than 50% in coordination of care (as documented) at patient's floor/unit and/or counseling patient: Internal Medicine: Result - Labs CBC & Chem 7: 03/25/19 03:35 03/25/19 03:35 Labs: Short CBC 03/25/19 Range/Units 03:35 WBC 12.1 H (4.3-11.1) K/mcL Hgb 8.4 L (11.5-15.4) g/dL Hct 26.2 L (35.3-44.9) % Plt Count 95 L (140-400) K/mcL Neutrophils # 10.8 H (1.6-8.9) K/mcL BMP 03/25/19 03:35 Sodium 139 Potassium 3.5 Chloride 106 Carbon Dioxide 30 H BUN 13 Creatinine 0.50 L Glucose 199 H Calcium 8.0 L - ABG Interpretation ABG results: ABG ABG pH 7.40 pH Units (7.32-7.45) 03/23/19 15:59 ABG pCO2 55 mmHg (35-45) H 03/23/19 15:59 ABG pO2 74 mmHg (85-104) L 03/23/19 15:59 ABG O2 Saturation 94 % (95-98) L 03/23/19 15:59 PT/INR, D-dimer PT 13.1 Seconds (9.4-12.1) H 03/24/19 05:31 - Impressions Impressions Guidance Ultrasound 03/24/19 00:00 IMPRESSION: 1. 1. IVC has normal appearance, suitable for filter placement. 2. 2. Infrarenal inferior vena cava filter placement as discussed above. D/ / 03/24/2019 12:10:25 Reema Lawson MD / radha Interpreting Provider: Reema Lawson MD Filter Placement 03/24/19 07:00 IMPRESSION: 1. 1. IVC has normal appearance, suitable for filter placement. 2. 2. Infrarenal inferior vena cava filter placement as discussed above. D/ / 03/24/2019 12:10:25 Reema Lawson MD / radha Interpreting Provider: Reema Lawson MD Consult Discharge Plan - Plan Referrals: Maisha Ruth, [facility] ADMINISTRATOR [Primary Care Provider] - (1) Diabetes mellitus type 2 with complications Qualifiers: Diabetes mellitus mcfp insulin use: without mcfp use Qualified Code(s): E11.8 - Type 2 diabetes mellitus with unspecified complications (3) Squamous cell carcinoma of lung, stage IV Qualifiers: Laterality: unspecified laterality Qualified Code(s): C34.90 - Malignant neoplasm of unspecified part of unspecified bronchus or lung (4) Pulmonary embolism Qualifiers: Pulmonary embolism type: other Chronicity: chronic Acute cor pulmonale presence: without acute cor pulmonale Qualified Code(s): I27.82 - Chronic pulmonary embolism (7) Sepsis Qualifiers: Sepsis type: sepsis due to unspecified organism Qualified Code(s): A41.9 - Sepsis, unspecified organism (8) COPD (chronic obstructive pulmonary disease) Qualifiers: Emphysema type: unspecified Qualified Code(s): J43.9 - Emphysema, unspecified (9) HFrEF (heart failure with reduced ejection fraction) Qualifiers: Heart failure chronicity: chronic Qualified Code(s): I50.22 - Chronic systo lic (congestive) heart failure (10) CAD (coronary artery disease) Qualifiers: Coronary Disease-Associated Artery/Lesion type: [place]olai artery [place] vs. [place] spl[place] heart: unspecified whether nikolai or transplanted heart Associated angina: angina presence unspecified Qualified Code(s): I25.10 - Atherosclerotic heart disease of nikolai coronary artery without angina pectoris
[2019-03-25] MEDS ORDERED: Isovue-300 50 ML VIAL ONE (10:25)
[2019-03-25] MEDS ORDERED: *HR* Vasopressin 20 UNIT/ML VIAL ONE (11:46)
[2019-03-25] MEDS ORDERED: *HR* Succinylcholine 200 MG/10 ML VIAL IVP ONE (12:12)
[2019-03-25] MEDS ORDERED: Dexamethasone 4 MG/ML VIAL ONE (12:12)
[2019-03-25] MEDS ORDERED: *HR* PHENYLEPHRINE 1,000 MCG/10 ML SYRINGE IVP ONE ×2 (12:12→13:41)
[2019-03-25] MEDS ORDERED: Lidocaine -MPF 4% 5 ML AMPUL ONE (12:12)
[2019-03-25] MEDS ORDERED: Ondansetron 4 MG/2 ML VIAL ONE (12:12)
[2019-03-25] MEDS ORDERED: *HR* Etomidate 40 MG/20 ML VIAL IVP ONE (12:12)
[2019-03-25] MEDS ORDERED: *HR* Midazolam HCl 2 MG/2 ML VIAL ONE (12:12)
[2019-03-25] MEDS ORDERED: Lidocaine -MPF 2% 2 ML VIAL ONE (12:12)
[2019-03-25] MEDS ORDERED: *HR* Rocuronium Bromide 50 MG/5 ML VIAL ONE (12:12)
[2019-03-25] MEDS ORDERED: *HR* FentaNYL (PF) 100 MCG/2 ML VIAL ONE (12:12)
[2019-03-25] MEDS ORDERED: SUGAMMADEX SODIUM 500 MG/5 ML VIAL IV ONE (12:32)
--- NOTE | 2019-03-25 12:48 | Operative Note ---
Date of procedure: 03/25/19 Pre-op diagnosis: Recurrent acute cholecystitis and cholelithiasis Post-op diagnosis: same Procedure: Laparoscopic cholecystectomy, cholangiogram (+30% for severe inflammation) Anesthesia: CARRIEA Surgeon: Cameron Kirby Was there an scheduling assistant present: Yes Real Estate Attorney: Nicole Petit Estimated blood loss (cc): 40 Specimen: Gallbladder and contents Condition: stable Disposition: PACU Procedure in Detail: Laparoscopic cholecystectomy and intraoperative cholangiogram (+30% for severe inflammation Operative procedure: after informed consent and appropriate patient identification, the patient was taken to the major operating suite and placed supine position and given adequate general endotracheal anesthesia. The abdomen was prepped and draped in sterile fashion utilizing ChloraPrep standard draping techniques. Timeout was taken and the patient was identified. I made a vertical midline incision below the umbilicus and dissected down to level of fascia. I placed 2 traction stitches of 0 vicryl in the midline fascia and the abdominal cavity was entered visually. A [place] trocar was placed in the abdomen and the abdomen was insufflated to 15 mmHg pressure CO2. The gallbladder was visualized. The gallbladder was severely inflamed with inflammatory adhesions to the anterior abdominal wall consistent with previous cholecystostomy placement. I placemed an 11 port in the subxiphoid area and two 5 mm ports in the subcostal area. It took me 20 minutes to dissected the inflammatory adhesions from the anterior abdominal wall and the dome of the gallbladder. When I dissected the dome of the gallbladder there was an area of pus and necrosis at the apex of the gallbladder. The gallbladder was also obstructed. The gallbladder was decompressed with a decompression needle. The gallbladder was grasped and elevated. A variety of blunt and sharp dissection techniques were used to isolate the cystic duct and cystic artery. The cystic artery was controlled with 2 surgical clips proximally and one distally and it was divided. I placed a surgical clip on the neck the gallbladder and obtained an intraoperative cholangiogram using 10 mL of Isovue. Intraoperative cholangiogram was normal. The cholangiocatheter was removed and the cystic duct was controlled with 2 surgical clips proximally and was divided. The gallbladder was removed from the gallbladder fossae using electrocautery. The gallbladder was removed from the abdomen through the #11 port site using a specimen bag. I replaced the #11 port and irrigated with copious amounts of antibiotic containing solution. There was an additional area of bleeding on the gallbladder fossa that was controlled with electrocautery. I irrigated again after hemostasis was gained. There was no evidence of bleeding or bile leak. I placed a 10 mm Rg-Reyna drain in the right upper quadrant secondary to severe inflammation All trochars were removed. Fascia was closed with 0 Vicryl and the skin with 2-0 and 4-0 Vicry. He tolerated the procedure well and was transferred to recovery in stable condition
[2019-03-25] MEDS: *HR* HYDROmorphone (PF) 1 MG/ML SYRINGE IVP PRN ×4 (12:55→13:12)
[2019-03-25] MEDS ORDERED: 0.9 % Sodium Chloride 500 ML ONE (13:29)
[2019-03-25] MEDS ORDERED: *HR* HYDROmorphone (PF) 1 MG/ML SYRINGE IVP PRN (14:21)
[2019-03-25] MEDS ORDERED: *HR* Promethazine 25 MG/ML VIAL IVP PRN (14:21)
[2019-03-25] MEDS ORDERED: Naloxone 0.4 MG/ML INJ IVP PRN ×2 (14:21)
[2019-03-25] MEDS ORDERED: Ondansetron 4 MG/2 ML VIAL IVP PRN (14:21)
[2019-03-25] MEDS ORDERED: Ipratropium/Albuterol Neb 3 ML IH PRN (14:21)
[2019-03-25] MEDS ORDERED: Dextrose Gel 15 GM/37.5 ML TUBE PO PRN ×2 (14:21)
[2019-03-25] MEDS ORDERED: D5% in Water 1,000 ML IVC PRN (14:21)
[2019-03-25] MEDS ORDERED: *HR* Dextrose 50 % in Water (Syg) 50 ML SYRINGE IVP PRN (14:21)
[2019-03-25] MEDS ORDERED: cefOXitin 1,000 MG, 0.9 % Sodium Chloride 1,000 ML IR ONE ×2 (15:00)
[2019-03-25] MEDS: 0.9 % Sodium Chloride w KCl 40 MEQ/1,000 ML MLS IVC SCH (15:53)
[2019-03-25] MEDS ORDERED: *HR* Heparin 5,000 UNIT/ML VIAL IVP ONE (18:19)
[2019-03-25] MEDS ORDERED: *HR* Heparin 5,000 UNIT/ML VIAL IVP PRN ×2 (18:19)
[2019-03-25] MEDS ORDERED: Heparin 25,000 UNIT/250 ML D5W 25,000 UNIT/250 ML IV.SOLN IVC SCH (18:30)
[2019-03-25 18:56] LABS: Hematocrit 26.7 % (35.3-44.9); Hemoglobin 8.6 g/dL (11.5-15.4); Mean Corpuscular HGB Conc 32.2 g/dL (31.6-35.5); Mean Corpuscular Hemoglobin 33.3 pg (28.0-33.3); Mean Corpuscular Volume 103.5 fL (83.0-100.0); Mean Platelet Volume 10.7 fL (9.4-12.4); Platelet Count 107 K/mcL (140-400); Red Blood Count 2.58 M/mcL (3.82-4.97); Red Cell Distribution Width 14.3 % (11.5-14.5)
[2019-03-25 19:04] LABS: Heparin anti-factor XA UFH 0.02 IU/mL (0.30-0.70)
[2019-03-25 19:05] LABS: INR 1.1; Prothrombin Time 12.3 Seconds (9.4-12.1)
[2019-03-25] MEDS: *HR* OxyCODONE/APAP 10/325 TABLET PO PRN (20:15)
[2019-03-25] MEDS: lamoTRIgine 100 MG TABLET PO SCH (21:21)
[2019-03-25] MEDS: risperiDONE 1 MG TABLET PO SCH (21:21)
[2019-03-25] MEDS: OXYCODONE Oral CONC 10 MG/0.5 ML ORAL.SYG SL PRN (21:24)
[2019-03-26 01:04] LABS: Basophils % 0.2 %; Hematocrit 26.7 % (35.3-44.9); Hemoglobin 8.6 g/dL (11.5-15.4); Immature Granulocytes % 2.2 % (0-4); Lymphocytes # 0.3 K/mcL (0.6-4.6); Lymphocytes % 2.5 %; Mean Corpuscular HGB Conc 32.2 g/dL (31.6-35.5); Mean Corpuscular Hemoglobin 33.6 pg (28.0-33.3); Mean Corpuscular Volume 104.3 fL (83.0-100.0); Mean Platelet Volume 10.5 fL (9.4-12.4); Monocytes # 0.3 K/mcL (0.0-1.3); Neutrophils # 11.9 K/mcL (1.6-8.9); Nucleated Red Blood Cells 0.3 /100 WBC (0); Platelet Count 102 K/mcL (140-400); Red Blood Count 2.56 M/mcL (3.82-4.97); Red Cell Distribution Width 14.3 % (11.5-14.5); Segmented Neutrophils % 93.1 %
[2019-03-26 01:25] LABS: BUN/Creatinine Ratio 22 (6-26); Blood Urea Nitrogen 12 mg/dL (8-23); Calcium 8.3 mg/dL (8.6-10.3); Carbon Dioxide 31 mEq/L (23-29); Chloride 105 mEq/L (98-107); Glucose 215 mg/dL (70-105); Osmolality,Calculated 292 (280-300); Potassium 3.7 mEq/L (3.5-5.1); Sodium 138 mEq/L (136-145); eGFR For Non-African Americans > 60 (> 60)
[2019-03-26] MEDS: *HR* OxyCODONE/APAP 10/325 TABLET PO PRN ×2 (03:31→22:34)
[2019-03-26] MEDS: 0.9 % Sodium Chloride w KCl 40 MEQ/1,000 ML MLS IVC SCH (03:37)
[2019-03-26 04:22] LABS: BUN/Creatinine Ratio 24 (6-26); Blood Urea Nitrogen 12 mg/dL (8-23); Calcium 8.3 mg/dL (8.6-10.3); Carbon Dioxide 26 mEq/L (23-29); Chloride 104 mEq/L (98-107); Glucose 218 mg/dL (70-105); Osmolality,Calculated 292 (280-300); Sodium 138 mEq/L (136-145); eGFR For Non-African Americans > 60 (> 60)
[2019-03-26 04:23] LABS: Basophils % 0.2 %; Hematocrit 29.9 % (35.3-44.9); Hemoglobin 9.5 g/dL (11.5-15.4); Immature Granulocytes % 4.1 % (0-4); Lymphocytes # 1.3 K/mcL (0.6-4.6); Mean Corpuscular HGB Conc 31.8 g/dL (31.6-35.5); Mean Corpuscular Hemoglobin 33.1 pg (28.0-33.3); Mean Corpuscular Volume 104.2 fL (83.0-100.0); Mean Platelet Volume 10.7 fL (9.4-12.4); Monocytes # 0.5 K/mcL (0.0-1.3); Monocytes % 2.9 %; Neutrophils # 15.8 K/mcL (1.6-8.9); Nucleated Red Blood Cells 0.6 /100 WBC (0); Platelet Count 135 K/mcL (140-400); Red Blood Count 2.87 M/mcL (3.82-4.97); Red Cell Distribution Width 14.4 % (11.5-14.5); Segmented Neutrophils % 85.8 %
[2019-03-26] MEDS: Hydrocortisone Sodium Succ 100 MG/2 ML VIAL IVP SCH ×3 (05:10→22:19)
[2019-03-26] MEDS: Insulin LISPRO 300 UNITS/3 ML VIAL SQ SCH ×5 (05:10→22:19)
--- NOTE | 2019-03-26 07:36 | AcuteCareSurgery Progress Note ---
Date of Encounter: 03/26/19 Time of Encounter: 06:30 - Assessment and Plan (1) Cholecystitis, acute with cholelithiasis Current Visit: Yes Status: Acute The patient is at very high risk for general anesthetic. I had a clinical conference with Dr. Luque who is in complete agreement with vena cava filter and maximizing pulmonary and cardiac care prior to surgery on . Cameron Kirby MD FACS 01/24/2019. The patient has had successful laparoscopic cholecystectomy yesterday. Rg-Reyna drainage is serosanguineous with no evidence of bile leak. She is awake alert and pain-free. Her blood pressure has normalized. I am very pleased with her overall clinical course. We will advance her to regular diet. From a surgical standpoint, she is stable to transfer out of the intensive care unit Cameron Kirby MD FACS Qualifiers: Qualified Code(s): K80.00 - Calculus of gallbladder with acute cholecystitis without obstruction Subjective Narrative: The patient underwent laparoscopic cholecystectomy and intraoperative cholangiogram yesterday. She had severe acute cholecystitis and areas of gallbladder necrosis and purulence. Laparoscopic cholecystectomy was successful. A Rg-Reyna drain was placed. There is no evidence of bile drainage in the Rg-Reyna drain. Drainage is serosanguineous. She is awake and alert. She is essentially pain-free. She is smiling and very happy with the outcome of her surgery. During the early postoperative period in the ecovery area she demonstrated some hypotension. She was placed in the intensive care unit. Since that time, she has been very stable and this morning her systolic blood pressure is within normal limits to slightly hypertensive. She may move out of the intensive care unit. We will advance her diet to regular. Objective Vital Signs - Last 8 Hours Temp Pulse Resp BP Pulse Ox 03/26/19 06:00 99 8 121/80 100 03/26/19 05:00 89 8 86/62 100 03/26/19 04:40 97.6 F 03/26/19 04:00 108 17 83/65 99 03/26/19 03:45 120 03/26/19 03:00 120 19 107/60 95 03/26/19 02:00 91 8 95/56 100 03/26/19 01:44 97.6 F 03/26/19 01:00 96 8 88/61 100 03/26/19 00:00 101 7 94/65 100 03/25/19 23:50 98 Intake and Output 03/25/19 03/25/19 03/26/19 15:59 23:59 07:59 Intake Total 140 / 240 1100 / 1100 Output Total 60 / 500 20 / 500 210 / 210 Balance -60 / -260 120 / -260 890 / 890 Intake: IV Fluids 140 / 240 1100 / 1100 KCl 40mEq in 0.9% Sodium 1000 / 1000 Chloride 40 meq In 1,000 ml @ 75 mls/hr IVC .[id number] BLANCA Rx#: [id number] Maxipime 2,000 MG In Water for 40 / 40 inj. (sterile) 20 ML @ 300 mls/ hr IVP Q8HR BLANCA Rx#:[id number] Flagyl Premix 500 MG/100 ML 500 100 / 100 100 / 100 mg In 100 ml @ 100 mls/hr IVPB Q8HR BLANCA Rx#:[id number] Output: Urine 150 / 150 Estimated Blood Loss 20 / 20 Wound Drainage 40 / 80 20 / 80 60 / 60 Right Lower Abdomen 40 / 80 20 / 80 60 / 60 Other: Weight 83.8 kg Blood Glucose* 213 199 218 Patient Weight 03/26/19 23:59 Weight 83.8 kg - General physical appearance well developed, well nourished, chronically ill, obese - Respiratory crackles: bilateral, wheezing: bilateral - Cardiovascular Cardiovascular exam: Present: RRR, distant heart sounds - Abdomen Abdomen: Present: bowel sounds present, soft, non tender - Incision Incision: Present: clean and dry, intact - Neurologic normal coordination, normal sensation - Psychiatric oriented to time, oriented to person, oriented to place, speech is normal, memory intact - Labs 03/26/19 03:42 03/26/19 03:42 Diabetes panel 03/26/19 03/26/19 Range/Units 00:48 03:42 Sodium 138 138 (136-145) mEq/L Potassium 3.7 4.0 (3.5-5.1) mEq/L Chloride 105 104 (98-107) mEq/L Carbon Dioxide 31 H 26 (23-29) mEq/L BUN 12 12 (8-23) mg/dL Creatinine 0.55 L 0.51 L (0.60-1.20) mg/dL Glucose 215 H 218 H (70-105) mg/dL Calcium 8.3 L 8.3 L (8.6-10.3) mg/dL Calcium panel 03/26/19 03/26/19 Range/Units 00:48 03:42 Calcium 8.3 L 8.3 L (8.6-10.3) mg/dL Pituitary panel 03/26/19 03/26/19 Range/Units 00:48 03:42 Sodium 138 138 (136-145) mEq/L Potassium 3.7 4.0 (3.5-5.1) mEq/L Chloride 105 104 (98-107) mEq/L Carbon Dioxide 31 H 26 (23-29) mEq/L BUN 12 12 (8-23) mg/dL Creatinine 0.55 L 0.51 L (0.60-1.20) mg/dL Glucose 215 H 218 H (70-105) mg/dL Calcium 8.3 L 8.3 L (8.6-10.3) mg/dL Adrenal panel 03/26/19 03/26/19 Range/Units 00:48 03:42 Sodium 138 138 (136-145) mEq/L Potassium 3.7 4.0 (3.5-5.1) mEq/L Chloride 105 104 (98-107) mEq/L Carbon Dioxide 31 H 26 (23-29) mEq/L BUN 12 12 (8-23) mg/dL Creatinine 0.55 L 0.51 L (0.60-1.20) mg/dL Glucose 215 H 218 H (70-105) mg/dL Calcium 8.3 L 8.3 L (8.6-10.3) mg/dL Consult Discharge Plan - Plan Referrals: Maisha Ruth, KJ [Primary Care Provider] -
--- NOTE | 2019-03-26 07:45 | Internal Med Progress Note ---
Hospitalist Progress Note - Encounter Date of Encounter: 03/26/19 Time of Encounter: 07:23 - Subjective Interval History: Patient seen and examined this morning events. No acute overnight events. Patient transferred to ICU after surgery. Currently on hemodynamic monitoring with stable vitals. Abdominal pain much improved. Complains occasional tingl ing in foot. Denies any chest pain nausea vomiting shortness of breath. Afebrile. - Exam Vitals: Temp Pulse Resp BP Pulse Ox 97.6 F 99 8 121/80 100 03/26/19 04:40 03/26/19 06:00 03/26/19 06:00 03/26/19 06:00 03/26/19 06:00 Exam: General: In no acute distress. Respiratory exam: Occasional scattered rhonchi. No accessory muscle use. No rales Cardiovascular exam: RRR, +S1, +S2. no murmur, gallop, rubs. GI/Abdominal exam: mild abdominal tenderness RUQ, soft, no peritoneal signs, GILLIAN drain in RUQ without any collection Extremities exam: 1+ pedal edema, no calf tenderness Neurological exam: CN II-XII intact, AO X3, no focal deficits. - Assessment and Plan (1) Diabetes mellitus type 2 with complications Current Visit: Yes Status: Chronic (2) Adrenal insufficiency Current Visit: Yes Status: Acute (3) Squamous cell carcinoma of lung, stage IV Current Visit: Yes Status: Chronic (4) Pulmonary embolism Current Visit: Yes Status: Chronic (5) DVT prophylaxis Current Visit: Yes Status: Acute (6) Acute cholecystitis Current Visit: Yes Status: Acute (7) Sepsis Current Visit: Yes Status: Acute (8) COPD (chronic obstructive pulmonary disease) Current Visit: Yes Status: Chronic (9) HFrEF (heart failure with reduced ejection fraction) Current Visit: Yes Status: Chronic (10) CAD (coronary artery disease) Current Visit: Yes Status: Chronic - Summary of Assessment and Plan Summary of Assessment and Plan: Sepsis, - Secondary to acute cholecystitis. s/p Laparoscopic cholecystectomy, intraoperative cholangiogram, GILLIAN drain placement. Transferred to ICU after - worsening leukocyotis likely related post opt - c/w empiric cefepime and flagyl. f/u intra opt cultures. blood cultures NGTD - c/w IVF. BP on hemodynamic monitor is good. Monitor for signs of fluid overload. - incentive spirometry and duonebs - Code status DNR CCA with trial of intubation. Palliative care following. Acute cholecystitis - s/p surgery - as above. Pulmonary embolism - Diagnosis of December 2018, had been on Eliquis since then - Repeat CTA in January did not show any evidence of PE - Hold AC for surgery. s/p IVC filter. will resume AC when ok with surgery. HFrEF - Recent diagnosis with EF 30-35% on echo 01/2019. Declined LHC at that time - natalio-i on hold due to borderline BP. Will resume soon. COPD - Not in exacerbation. - c/w symbicort and scheduled and prn duoneb. Incentive spirometry Adrenal insufficiency - On dexamethasone after chemotherapy and Florinef - c/w stress dose steroids. Diabetes mellitus type 2 with complications - SSI and accuchecks. Resume diabetic diet per surgery. CAD - Plavix held for surgery. Will resume when ok with surgery. - BP medication on hold Goals of care, counseling/discussion - palliative care consulted. Patient DNR CCA with trial of intubation. DVT prophylaxis - EPCD - Time Spent with Patient Total time spent is greater than 50% in coordination of care (as documented) at patient's floor/unit and/or counseling patient: Internal Medicine: Result - Labs CBC & Chem 7: 03/26/19 03:42 03/26/19 03:42 Labs: Short CBC 03/25/19 03/26/19 03/26/19 Range/Units 18:45 00:48 03:42 WBC 14.0 H 12.8 H 18.4 H (4.3-11.1) K/mcL Hgb 8.6 L 8.6 L 9.5 L (11.5-15.4) g/dL Hct 26.7 L 26.7 L 29.9 L (35.3-44.9) % Plt Count 107 L 102 L 135 L (140-400) K/mcL Neutrophils # 11.9 H 15.8 H (1.6-8.9) K/mcL BMP 03/26/19 03/26/19 00:48 03:42 Sodium 138 138 Potassium 3.7 4.0 Chloride 105 104 Carbon Dioxide 31 H 26 BUN 12 12 Creatinine 0.55 L 0.51 L Glucose 215 H 218 H Calcium 8.3 L 8.3 L - ABG Interpretation ABG results: ABG ABG pH 7.40 pH Units (7.32-7.45) 03/23/19 15:59 ABG pCO2 55 mmHg (35-45) H 03/23/19 15:59 ABG pO2 74 mmHg (85-104) L 03/23/19 15:59 ABG O2 Saturation 94 % (95-98) L 03/23/19 15:59 PT/INR, D-dimer PT 12.3 Seconds (9.4-12.1) H 03/25/19 18:45 - Impressions Impressions Cholangiogram,Operative 03/25/19 00:00 IMPRESSION: Status post cholecystectomy with no evidence of a common bile duct retained stone. No evidence of a leak. D/ / 03/25/2019 12:28:04 Alf Layne MD / ubaldo Interpreting Provider: Alf Layne MD Consult Discharge Plan - Plan Referrals: Maisha Ruth, EASTER BUNNY [Primary Care Provider] - (1) Diabetes mellitus type 2 with complications Qualifiers: Diabetes mellitus detention insulin use: without detention use Qualified Code(s): E11.8 - Type 2 diabetes mellitus with unspecified complications (3) Squamous cell carcinoma of lung, stage IV Qualifiers: Laterality: unspecified laterality Qualified Code(s): C34.90 - Malignant neoplasm of unspecified part of unspecified bronchus or lung (4) Pulmonary embolism Qualifiers: Pulmonary embolism type: other Chronicity: chronic Acute cor pulmonale presence: without acute cor pulmonale Qualified Code(s): I27.82 - Chronic pulmonary embolism (7) Sepsis Qualifiers: Sepsis type: sepsis due to unspecified organism Qualified Code(s): A41.9 - Sepsis, unspecified organism (8) COPD (chronic obstructive pulmonary disease) Qualifiers: Emphysema type: unspecified Qualified Code(s): J43.9 - Emphysema, unspecified (9) HFrEF (heart failure with reduced ejection fraction) Qualifiers: Heart failure chronicity: chronic Qualified Code(s): I50.22 - Chronic systolic (congestive) heart failure (10) CAD (coronary artery disease) Qualifiers: Coronary Disease-Associated Artery/Lesion type: [place] artery [place] vs. transplanted heart: unspecified whether [place] or transplanted heart Associated angina: angina presence unspecified Qualified Code(s): I25.10 - Atherosclerotic heart disease of [place] coronary artery without angina pectoris
[2019-03-26] MEDS: MetroNIDAZOLE 500 MG/100 ML 500 MG/100 ML BAG IVPB SCH ×2 (08:05→16:24)
[2019-03-26] MEDS: Cefepime HCl 2,000 MG in Water for inj. (sterile) 20 ML 20 ML IVP SCH ×2 (08:05→16:20)
[2019-03-26] MEDS: Sucralfate 1 GM TABLET PO SCH ×4 (08:06→22:20)
[2019-03-26] MEDS: OXYCODONE Oral CONC 10 MG/0.5 ML ORAL.SYG SL PRN ×2 (08:43→16:18)
[2019-03-26] MEDS: Budesonide/Formoterol 160/4.5 1 PUFF INH IH SCH ×2 (09:42→20:15)
[2019-03-26] MEDS: Ipratropium/Albuterol Neb 3 ML IH SCH ×2 (09:42→20:15)
--- NOTE | 2019-03-26 15:24 | Palliative Progress Note ---
<Antonio Sanchez - Last Filed: 03/26/19 15:10> Date of Encounter: 03/26/19 Time of Encounter: 10:00 - Assessment and plan (1) Goals of care, counseling/discussion Current Visit: No Status: Chronic Assessment and plan: Patient's goal continues to be to get better and continue treatment with oncology for her cancer. Patient states that she had her first chemotherapy a few days ago and tolerated it well. She confirmed her CODE STATUS to DNR CCA, with a trial of intubation. Her pain appears to be well controlled. Palliative care will follow from a distance. (2) Palliative care encounter Current Visit: Yes Status: Acute (3) Acute cholecystitis Current Visit: Yes Status: Acute Assessment and plan: s/p Laparoscopic cholecystectomy POD#1. Rg-Reyna drainage is serosanguineous with no evidence of bile leak. She is awake alert and pain-madina e. Her blood pressure has normalized. Per surgery, patient will be advanced her to regular diet. (4) Sepsis Current Visit: Yes Status: Acute Assessment and plan: Secondary to acute cholecystitis. s/p Laparoscopic cholecystectomy, intraoperative cholangiogram, GILLIAN drain placement. Transferred to ICU after. Management per primary team: - worsening leukocyotis likely related post opt - c/w empiric cefepime and flagyl. f/u intra opt cultures. blood cultures NGTD - c/w IVF. BP on hemodynamic monitor is good. Monitor for signs of fluid overload. - incentive spirometry and duonebs Qualifiers: Sepsis type: sepsis due to unspecified organism Qualified Code(s): A41.9 - Sepsis, unspecified organism (5) Lung cancer Current Visit: No Status: Chronic Assessment and plan: Patient to follow up with oncology for continued treatment. Qualifiers: Laterality: right Lung location: upper lobe of lung Qualified Code(s): C34.11 - Malignant neoplasm of upper lobe, right bronchus or lung - Time Spent With Patient Total time spent is greater than 50% in coordination of care (as documented) at patient's floor/unit and/or counseling patient: - Subjective Interval history: When seen today, patient says that her pain is tolerable. She does complain of RUQ discomfort. She denies any nausea or vomiting. Denies any chest pain. Her breathing is a little worse than yesterday. She denies any fever. Admits to swelling in her lower extremities for the past 2 weeks, although she does not it has not gotten worse since yesterday. Admits to numbness/tingling in her LE, which gets worse throughout the day. She admits to a productive cough with yellow sputum. - Constitutional Vitals: Abnormal lab results WBC 18.4 K/mcL (4.3-11.1) H 03/26/19 03:42 RBC 2.87 M/mcL (3.82-4.97) L 03/26/19 03:42 Hgb 9.5 g/dL (11.5-15.4) L 03/26/19 03:42 Hct 29.9 % (35.3-44.9) L 03/26/19 03:42 MCV 104.2 fL (83.0-100.0) H 03/26/19 03:42 MCH 33.6 pg (28.0-33.3) H 03/26/19 00:48 RDW 14.7 % (11.5-14.5) H 03/23/19 02:57 Plt Count 135 K/mcL (140-400) L 03/26/19 03:42 Immature Gran % 4.1 % (0-4) H 03/26/19 03:42 8.0 % (0-4) H 03/24/19 05:31 15.8 K/mcL (1.6-8.9) H 03/26/19 03:42 0.3 K/mcL (0.6-4.6) L 03/26/19 00:48 Nucleated RBCs/100 WBC 0.6 /100 WBC (0) H 03/26/19 03:42 Slight Decrease (Normal) L 03/24/19 05:31 Immature Plt Fraction 6.3 % (1.1-6.1) H 03/25/19 03:35 PT 12.3 Seconds (9.4-12.1) H 03/25/19 18:45 APTT 21.8 Seconds (26.0-36.0) L 03/23/19 02:57 Heparin Anti-Xa, Unfract 0.02 IU/mL (0.30-0.70) L 03/25/19 18:45 ABG pCO2 55 mmHg (35-45) H 03/23/19 15:59 ABG pO2 74 mmHg (85-104) L 03/23/19 15:59 ABG HCO3 35 mEq/L (21-27) H 03/23/19 15:59 ABG Total CO2 36 mEq/L (20-26) H 03/23/19 15:59 ABG O2 Saturation 94 % (95-98) L 03/23/19 15:59 ABG Base Excess 8 mEq/L (-2 to 3) H 03/23/19 15:59 Sodium 135 mEq/L (136-145) L 03/23/19 02:57 Potassium 3.3 mEq/L (3.5-5.1) L 03/24/19 05:31 Chloride 95 mEq/L (98-107) L 03/23/19 02:57 Carbon Dioxide 31 mEq/L (23-29) H 03/26/19 00:48 BUN 7 mg/dL (8-23) L 03/23/19 02:57 0.51 mg/dL (0.60-1.20) L 03/26/19 03:42 28 (6-26) H 03/24/19 05:31 Glucose 218 mg/dL (70-105) H 03/26/19 03:42 POC Glucose 218 mg/dL (70-99) H 03/25/19 23:28 Calcium 8.3 mg/dL (8.6-10.3) L 03/26/19 03:42 Magnesium 1.2 mg/dL (1.6-2.6) L 03/23/19 02:57 119 Units/L (34-104) H 03/23/19 02:57 4.8 g/dL (6.4-8.9) L 03/23/19 02:57 2.8 g/dL (3.5-5.7) L 03/23/19 02:57 2.0 g/dL (2.4-3.5) L 03/23/19 02:57 General appearance: Present: cooperative, no acute distress, obese Exam: A&Ox3. - Head Head exam: Present: atraumatic, normal inspection, normocephalic - Eye Eye exam: Present: sclera anicteric. Absent: conjuntiva pink - Respiratory Respiratory exam: Present: CTAB. Absent: accessory muscle use, chest wall tenderness, respiratory distress, rhonchi, wheezes - Cardiovascular Cardiovascular exam: Present: RRR, +S1, +S2. Absent: +S3, +S4 - GI/Abdominal GI/Abdominal exam: Present: normal bowel sounds, soft. Absent: distended, guarding, mass, rebound, tenderness Additional comments: GILLIAN drain in RUQ intact with bandage with no signs of bleeding, bus, or drainage. - Extremities Exam Extremities exam: Present: normal capillary refill, pedal edema (+2 b/l pitting edema.). Absent: calf tenderness, tenderness - Neurological Exam Neurological exam: Present: alert, oriented X3, no focal deficits Additional comments: sensations in LE intact and symmetrical b/l. - Psychiatric Psychiatric exam: Present: normal affect, normal mood - Skin Skin exam: Present: dry, intact. Absent: cyanosis Palliative Quality Palliative Quality: Screen for Code Status: Yes, Screen for Goals of Care: Yes, Screen for Pain: Yes, If Pain Regimen Started, Initiate Bowel Regimen: Yes, Sc reen for Nausea/Vomitting: Yes Code Status: 03/22/19 19:56 Resuscitation Status: Active [RES] Routine Comment: Resuscitation Status: Full Code 03/23/19 16:38 Resuscitation Status: Active [RES] Routine Comment: Resuscitation Status: DNR-Comfort Care-Arrest - Labs CBC & Chem 7: 03/26/19 03:42 03/26/19 03:42 Labs: Laboratory Results - last 24 hr 03/25/19 03/25/19 03/25/19 05:35 14:07 17:12 WBC RBC Hgb Hct MCV MCH MCHC RDW Plt Count MPV Immature Gran % Seg Neutrophils % Lymphocytes % Monocytes % Eosinophils % Basophils % Neutrophils # Lymphocytes # Monocytes # Eosinophils # Basophils # Nucleated RBCs/100 WBC PT INR Heparin Anti-Xa, Unfract Sodium Potassium Chloride Carbon Dioxide BUN Creatinine Est GFR ( Amer) Est GFR (Non-Af Amer) BUN/Creatinine Ratio Glucose POC Glucose 190 H 213 H 199 H Calculated Osmolality Calcium 03/25/19 03/25/19 03/25/19 18:45 18:45 23:28 WBC 14.0 H RBC 2.58 L Hgb 8.6 L Hct 26.7 L MCV 103.5 H MCH 33.3 MCHC 32.2 RDW 14.3 Plt Count 107 L MPV 10.7 Immature Gran % Seg Neutrophils % Lymphocytes % Monocytes % Eosinophils % Basophils % Neutrophils # Lymphocytes # Monocytes # Eosinophils # Basophils # Nucleated RBCs/100 WBC PT 12.3 H INR 1.1 Heparin Anti-Xa, Unfract 0.02 L Sodium Potassium Chloride Carbon Dioxide BUN Creatinine Est GFR ( Amer) Est GFR (Non-Af Amer) BUN/Creatinine Ratio Glucose POC Glucose 218 H Calculated Osmolality Calcium 03/26/19 03/26/19 03/26/19 00:48 00:48 03:42 WBC 12.8 H 18.4 H RBC 2.56 L 2.87 L Hgb 8.6 L 9.5 L Hct 26.7 L 29.9 L MCV 104.3 H 104.2 H MCH 33.6 H 33.1 MCHC 32.2 31.8 RDW 14.3 14.4 Plt Count 102 L 135 L MPV 10.5 10.7 Immature Gran % 2.2 4.1 H Seg Neutrophils % 93.1 85.8 Lymphocytes % 2.5 7.0 Monocytes % 2.0 2.9 Eosinophils % 0.0 0.0 Basophils % 0.2 0.2 Neutrophils # 11.9 H 15.8 H Lymphocytes # 0.3 L 1.3 Monocytes # 0.3 0.5 Eosinophils # 0.0 0.0 Basophils # 0.0 0.0 Nucleated RBCs/100 WBC 0.3 H 0.6 H PT INR Heparin Anti-Xa, Unfract Sodium 138 Potassium 3.7 Chloride 105 Carbon Dioxide 31 H BUN 12 Creatinine 0.55 L Est GFR ( Amer) > 60 Est GFR (Non-Af Amer) > 60 BUN/Creatinine Ratio 22 Glucose 215 H POC Glucose Calculated Osmolality 292 Calcium 8.3 L 03/26/19 03:42 WBC RBC Hgb Hct MCV MCH MCHC RDW Plt Count MPV Immature Gran % Seg Neutrophils % Lymphocytes % Monocytes % Eosinophils % Basophils % Neutrophils # Lymphocytes # Monocytes # Eosinophils # Basophils # Nucleated RBCs/100 WBC PT INR Heparin Anti-Xa, Unfract Sodium 138 Potassium 4.0 Chloride 104 Carbon Dioxide 26 BUN 12 Creatinine 0.51 L Est GFR ( Amer) > 60 Est GFR (Non-Af Amer) > 60 BUN/Creatinine Ratio 24 Glucose 218 H POC Glucose Calculated Osmolality 292 Calcium 8.3 L - ABG Interpretation ABG results: ABG ABG pH 7.40 pH Units (7.32-7.45) 03/23/19 15:59 ABG pCO2 55 mmHg (35-45) H 03/23/19 15:59 ABG pO2 74 mmHg (85-104) L 03/23/19 15:59 ABG O2 Saturation 94 % (95-98) L 03/23/19 15:59 PT/INR, D-dimer PT 12.3 Seconds (9.4-12.1) H 03/25/19 18:45 Palliative Scale - Palliative Performance Scale How ambulatory is this patient?: Mainly sit / lie What is patient's level of activity and evidence of disease?: Unable to do any work, Extensive disease How much self-care assistance does patient require?: Mainly assistance How much oral intake does the patient have?: Normal or reduced What is this patient's level of consciousness?: Full or confusion Palliative Performance Score: 50 % Consult Discharge Plan - Plan Additional Instructions: F/U in 2 weeks and maintain drain until F/U Referrals: Cameron Kirby MD [Partnered Physician] - Maisha Ruth CNP [Primary Care Provider] - <GayleParis Melissa - Last Filed: 03/29/19 09:48> Date of Encounter: 03/29/19 - Assessment and plan (1) Abdominal pain Current Visit: Yes Status: Acute Qualifiers: Abdominal location: right upper quadrant Qualified Code(s): R10.11 - Right upper quadrant pain (2) Goals of care, counseling/discussion Current Visit: No Status: Chronic (3) Palliative care encounter Current Visit: Yes Status: Acute (4) Acute cholecystitis Current Visit: No Status: Acute (5) Sepsis Current Visit: Yes Status: Acute Qualifiers: Sepsis type: sepsis due to unspecified organism Qualified Code(s): A41.9 - Sepsis, unspecified organism (6) Lung cancer Current Visit: No Status: Chronic Qualifiers: Laterality: right Lung location: upper lobe of lung Qualified Code(s): C34.11 - Malignant neoplasm of upper lobe, right bronchus or lung - Time Spent With Patient Total time spent is greater than 50% in coordination of care (as documented) at patient's floor/unit and/or counseling patient: - Constitutional Vitals: Abnormal lab results WBC 11.4 K/mcL (4.3-11.1) H 03/28/19 03:28 RBC 2.35 M/mcL (3.82-4.97) L 03/29/19 04:30 Hgb 7.8 g/dL (11.5-15.4) L 03/29/19 04:30 Hct 24.1 % (35.3-44.9) L 03/29/19 04:30 MCV 102.6 fL (83.0-100.0) H 03/29/19 04:30 MCH 33.5 pg (28.0-33.3) H 03/28/19 03:28 MCHC 31.0 g/dL (31.6-35.5) L 03/27/19 08:04 RDW 14.6 % (11.5-14.5) H 03/27/19 08:04 Plt Count 126 K/mcL (140-400) L 03/29/19 04:30 Immature Gran % 5.4 % (0-4) H 03/29/19 04:30 8.0 % (0-4) H 03/24/19 05:31 10.0 K/mcL (1.6-8.9) H 03/28/19 03:28 0.3 K/mcL (0.6-4.6) L 03/26/19 00:48 Nucleated RBCs/100 WBC 0.6 /100 WBC (0) H 03/29/19 04:30 Slight Decrease (Normal) L 03/29/19 04:30 Immature Plt Fraction 6.3 % (1.1-6.1) H 03/25/19 03:35 2+ (Not Present) A 03/29/19 04:30 Present (Not Present) A 03/29/19 04:30 1+ (Not Present) A 03/29/19 04:30 PT 12.3 Seconds (9.4-12.1) H 03/25/19 18:45 APTT 21.8 Seconds (26.0-36.0) L 03/23/19 02:57 Heparin Anti-Xa, Unfract 0.02 IU/mL (0.30-0.70) L 03/25/19 18:45 ABG pCO2 55 mmHg (35-45) H 03/23/19 15:59 ABG pO2 74 mmHg (85-104) L 03/23/19 15:59 ABG HCO3 35 mEq/L (21-27) H 03/23/19 15:59 ABG Total CO2 36 mEq/L (20-26) H 03/23/19 15:59 ABG O2 Saturation 94 % (95-98) L 03/23/19 15:59 ABG Base Excess 8 mEq/L (-2 to 3) H 03/23/19 15:59 Sodium 135 mEq/L (136-145) L 03/23/19 02:57 Potassium 3.1 mEq/L (3.5-5.1) L 03/29/19 04:30 Chloride 95 mEq/L (98-107) L 03/23/19 02:57 Carbon Dioxide 36 mEq/L (23-29) H 03/29/19 04:30 BUN 7 mg/dL (8-23) L 03/23/19 02:57 0.46 mg/dL (0.60-1.20) L 03/29/19 04:30 28 (6-26) H 03/29/19 04:30 Glucose 182 mg/dL (70-105) H 03/29/19 04:30 POC Glucose 225 mg/dL (70-99) H 03/28/19 21:36 Calcium 8.0 mg/dL (8.6-10.3) L 03/29/19 04:30 Magnesium 1.2 mg/dL (1.6-2.6) L 03/23/19 02:57 119 Units/L (34-104) H 03/23/19 02:57 0.05 ng/mL (< 0.04) H* 03/28/19 03:28 4.8 g/dL (6.4-8.9) L 03/23/19 02:57 2.8 g/dL (3.5-5.7) L 03/23/19 02:57 2.0 g/dL (2.4-3.5) L 03/23/19 02:57 - Attending Attestation I performed a history and physical examination of the patient and discussed his management with the resident. I reviewed the residents note and agree with the documented findings and plan of care: Patient at the time of exam was is being transferred out of the ICU, she is on nasal cannula oxygen, saturating well. She states her breathing is okay, her pain is well controlled. Patient confirmed that she is now feeling much better and glad that the surgery was done, her goal remains to recover and be able to go back to continue a cancer treatment. Patient's goals of care are clear, and there are no symptoms being managed by palliative care. Palliative care will sign off, please reconsult as needed. Palliative Quality Code Status: 03/22/19 19:56 Resuscitation Status: Active [RES] Routine Comment: Resuscitation Status: Full Code 03/23/19 16:38 Resuscitation Status: Active [RES] Routine Comment: Resuscitation Status: DNR-Comfort Care-Arrest - Labs CBC & Chem 7: 03/29/19 04:30 03/29/19 04:30 Labs: Laboratory Results - last 24 hr 03/28/19 03/28/19 03/28/19 11:18 15:56 21:36 WBC RBC Hgb Hct MCV MCH MCHC RDW Plt Count MPV Immature Gran % Seg Neutrophils % Lymphocytes % Monocytes % Eosinophils % Basophils % Neutrophils # Lymphocytes # Monocytes # Eosinophils # Basophils # Nucleated RBCs/100 WBC Platelet Estimate Polychromasia Hypochromasia Basophilic Stippling Sodium Potassium Chloride Carbon Dioxide BUN Creatinine Est GFR ( Amer) Est GFR (Non-Af Amer) BUN/Creatinine Ratio Glucose POC Glucose 242 H 256 H 225 H Calculated Osmolality Calcium 03/29/19 03/29/19 04:30 04:30 WBC 10.0 RBC 2.35 L Hgb 7.8 L Hct 24.1 L MCV 102.6 H MCH 33.2 MCHC 32.4 RDW 14.5 Plt Count 126 L MPV 10.2 Immature Gran % 5.4 H Seg Neutrophils % 81.5 Lymphocytes % 9.2 Monocytes % 3.7 Eosinophils % 0.0 Basophils % 0.2 Neutrophils # 8.2 Lymphocytes # 0.9 Monocytes # 0.4 Eosinophils # 0.0 Basophils # 0.0 Nucleated RBCs/100 WBC 0.6 H Platelet Estimate Slight Decrease L Polychromasia 2+ A Hypochromasia Present A Basophilic Stippling 1+ A Sodium 140 Potassium 3.1 L Chloride 100 Carbon Dioxide 36 H BUN 13 Creatinine 0.46 L Est GFR ( Amer) > 60 Est GFR (Non-Af Amer) > 60 BUN/Creatinine Ratio 28 H Glucose 182 H POC Glucose Calculated Osmolality 295 Calcium 8.0 L - ABG Interpretation ABG results: ABG ABG pH 7.40 pH Units (7.32-7.45) 03/23/19 15:59 ABG pCO2 55 mmHg (35-45) H 03/23/19 15:59 ABG pO2 74 mmHg (85-104) L 03/23/19 15:59 ABG O2 Saturation 94 % (95-98) L 03/23/19 15:59 PT/INR, D-dimer PT 12.3 Seconds (9.4-12.1) H 03/25/19 18:45
[2019-03-26] MEDS: lamoTRIgine 100 MG TABLET PO SCH (22:18)
[2019-03-26] MEDS: risperiDONE 1 MG TABLET PO SCH (22:19)
[2019-03-26] MEDS: *HR* Heparin 5,000 UNIT/ML VIAL SQ SCH (22:20)
[2019-03-26] MEDS ORDERED: 0.9 % Sodium Chloride w KCl 40 MEQ/1,000 ML MLS IVC SCH (22:30)
[2019-03-26] MEDS: clonazePAM 1 MG TABLET PO PRN ×2 (22:34)
[2019-03-27] MEDS: Cefepime HCl 2,000 MG in Water for inj. (sterile) 20 ML 20 ML IVP SCH ×2 (00:13→08:49)
[2019-03-27] MEDS: MetroNIDAZOLE 500 MG/100 ML 500 MG/100 ML BAG IVPB SCH ×2 (00:16→08:50)
[2019-03-27] MEDS: OXYCODONE Oral CONC 10 MG/0.5 ML ORAL.SYG SL PRN ×3 (01:15→21:10)
[2019-03-27] MEDS: Hydrocortisone Sodium Succ 100 MG/2 ML VIAL IVP SCH ×2 (05:49→13:07)
[2019-03-27] MEDS: *HR* Heparin 5,000 UNIT/ML VIAL SQ SCH ×2 (05:50→13:07)
[2019-03-27] MEDS: Sucralfate 1 GM TABLET PO SCH ×4 (08:48→21:10)
[2019-03-27] MEDS: *HR* OxyCODONE/APAP 10/325 TABLET PO PRN ×2 (08:49→17:44)
[2019-03-27] MEDS: clonazePAM 1 MG TABLET PO PRN ×2 (08:49→16:22)
[2019-03-27] MEDS: Insulin LISPRO 300 UNITS/3 ML VIAL SQ SCH ×4 (08:50→20:39)
[2019-03-27 08:56] LABS: Basophils % 0.3 %; Hematocrit 26.1 % (35.3-44.9); Hemoglobin 8.1 g/dL (11.5-15.4); Immature Granulocytes % 4.7 % (0-4); Lymphocytes # 0.6 K/mcL (0.6-4.6); Lymphocytes % 4.4 %; Mean Corpuscular Hemoglobin 33.1 pg (28.0-33.3); Mean Corpuscular Volume 106.5 fL (83.0-100.0); Mean Platelet Volume 10.6 fL (9.4-12.4); Monocytes # 0.3 K/mcL (0.0-1.3); Monocytes % 2.5 %; Neutrophils # 11.9 K/mcL (1.6-8.9); Nucleated Red Blood Cells 0.5 /100 WBC (0); Platelet Count 114 K/mcL (140-400); Red Blood Count 2.45 M/mcL (3.82-4.97); Red Cell Distribution Width 14.6 % (11.5-14.5); Segmented Neutrophils % 88.1 %
[2019-03-27 09:02] LABS: BUN/Creatinine Ratio 24 (6-26); Blood Urea Nitrogen 12 mg/dL (8-23); Calcium 8.3 mg/dL (8.6-10.3); Carbon Dioxide 27 mEq/L (23-29); Chloride 105 mEq/L (98-107); Glucose 239 mg/dL (70-105); Osmolality,Calculated 294 (280-300); Potassium 4.3 mEq/L (3.5-5.1); Sodium 138 mEq/L (136-145); Troponin I 0.06 ng/mL (< 0.04); eGFR For Non-African Americans > 60 (> 60)
--- NOTE | 2019-03-27 09:25 | Internal Med Progress Note ---
Hospitalist Progress Note - Encounter Date of Encounter: 03/27/19 Time of Encounter: 09:25 - Subjective Interval History: Patient seen and examined this morning. No acute overnight events. Denies any shortness of breath or chest pain. C/o swelling of LE. Mild abdominal soreness. - Exam Vitals: Temp Pulse Resp BP Pulse Ox 97.8 F 119 16 129/82 97 03/27/19 07:23 03/27/19 07:23 03/27/19 07:23 03/27/19 07:55 03/27/19 07:23 Exam: General: In no acute distress. Respiratory exam: Occasional scattered rhonchi. No accessory muscle use. No rales Cardiovascular exam: tachycardic, +S1, +S2. no murmur, gallop, rubs. GI/Abdominal exam: mild abdominal tenderness RUQ, soft, no peritoneal signs, GILLIAN drain in RUQ Extremities exam: 2+ pedal edema, no calf tenderness Neurological exam: CN II-XII intact, AO X3, no focal deficits. - Assessment and Plan (1) Diabetes mellitus type 2 with complications Current Visit: Yes Status: Chronic (2) Adrenal insufficiency Current Visit: Yes Status: Acute (3) Squamous cell carcinoma of lung, stage IV Current Visit: Yes Status: Chronic (4) Pulmonary embolism Current Visit: Yes Status: Chronic (5) DVT prophylaxis Current Visit: Yes Status: Acute (6) Acute cholecystitis Current Visit: Yes Status: Acute (7) Sepsis Current Visit: Yes Status: Acute (8) COPD (chronic obstructive pulmonary disease) Current Visit: Yes Status: Chronic (9) HFrEF (heart failure with reduced ejection fraction) Current Visit: Yes Status: Chronic (10) CAD (coronary artery disease) Current Visit: Yes Status: Chronic - Summary of Assessment and Plan Summary of Assessment and Plan: Sepsis - resolved - Secondary to acute cholecystitis. s/p Laparoscopic cholecystectomy, intraoperative cholangiogram, GILLIAN drain placement. - on empiric cefepime and flagyl. No intra opt cultures. blood cultures NGTD - Change antibiotic to cipro and flagyl for 3 more days to finish 10 day course - BP reading erratic. Will stop IVF given swelling of LE. - Discussed with surgery. will keep GILLIAN drain for now and dc with it to f/u with surgery outpatient. - incentive spirometry and duonebs - Code status DNR CCA. Acute cholecystitis - s/p surgery - as above. Pulmonary embolism - Diagnosis of December 2018, had been on Eliquis since then - Repeat CTA in January did not show any evidence of PE - Obtain LE US to evaluate for DVT given b/L swelling - s/p IVC filter before surgery - Resume apixan. Ok with surgery. Afib - restart eliquis - Not started on any rate control last time due to hypotension. - Will give one dose iv metoprolol for tachycardia and monitor. Start on amiodarone 200 mg. HFrEF - Recent diagnosis with EF 30-35% on echo 01/2019. Declined LHC at that time - natalio-i on hold due to borderline BP. Will resume soon. - Stop IVF and start diuresis given LE swelling and tachycardia. Start amiodarone for afib based on cardiology recommendation from last admission. COPD - Not in exacerbation. - c/w symbicort and scheduled and prn duoneb. Incentive spirometry Adrenal insufficiency - Will resume home dexamethasone and Florinef - stop stress dose steroids. Diabetes mellitus type 2 with complications - SSI and accuchecks. Resume diabetic diet per surgery. - give one dose of levemir 10 mg. CAD - Plavix resume per surgery. - BP medication on hold for now. Goals of care, counseling/discussion - palliative care consulted. Patient DNR CCA with trial of intubation. DVT prophylaxis - started on apixaban Mestatic lung ca - on palliative chemo outpatient. Will consult PT/OT - Time Spent with Patient Total time spent is greater than 50% in coordination of care (as documented) at patient's floor/unit and/or counseling patient: Internal Medicine: Result - Labs CBC & Chem 7: 03/27/19 08:04 03/27/19 08:04 Labs: Short CBC 03/27/19 Range/Units 08:04 WBC 13.5 H (4.3-11.1) K/mcL Hgb 8.1 L (11.5-15.4) g/dL Hct 26.1 L (35.3-44.9) % Plt Count 114 L (140-400) K/mcL Neutrophils # 11.9 H (1.6-8.9) K/mcL BMP 03/27/19 08:04 Sodium 138 Potassium 4.3 Chloride 105 Carbon Dioxide 27 BUN 12 Creatinine 0.51 L Glucose 239 H Calcium 8.3 L Cardiac Enzymes 03/27/19 Range/Units 08:04 Troponin I 0.06 H* (< 0.04) ng/mL - ABG Interpretation ABG results: ABG ABG pH 7.40 pH Units (7.32-7.45) 03/23/19 15:59 ABG pCO2 55 mmHg (35-45) H 03/23/19 15:59 ABG pO2 74 mmHg (85-104) L 03/23/19 15:59 ABG O2 Saturation 94 % (95-98) L 03/23/19 15:59 PT/INR, D-dimer PT 12.3 Seconds (9.4-12.1) H 03/25/19 18:45 Consult Discharge Plan - Plan Additional Instructions: F/U in 2 weeks and maintain drain until F/U Referrals: Cameron Kirby MD [Partnered Physician] - Maisha Ruth CNP [Primary Care Provider] - (1) Diabetes mellitus type 2 with complications Qualifiers: Diabetes mellitus automotive service assistant insulin use: without automotive service assistant use Qualified Code(s): E11.8 - Type 2 diabetes mellitus with unspecified complications (3) Squamous cell carcinoma of lung, stage IV Qualifiers: Laterality: unspecified laterality Qualified Code(s): C34.90 - Malignant neoplasm of unspecified part of unspecified bronchus or lung (4) Pulmonary embolism Qualifiers: Pulmonary embolism type: other Chronicity: chronic Acute cor pulmonale presence: without acute cor pulmonale Qualified Code(s): I27.82 - Chronic pulmonary embolism (7) Sepsis Qualifiers: Sepsis type: sepsis due to unspecified organism Qualified Code(s): A41.9 - Sepsis, unspecified organism (8) COPD (chronic obstructive pulmonary disease) Qualifiers: Emphysema type: unspecified Qualified Code(s): J43.9 - Emphysema, unspecified (9) HFrEF (heart failure with reduced ejection fraction) Qualifiers: Heart failure chronicity: chronic Qualified Code(s): I50.22 - Chronic systolic (congestive) heart failure (10) CAD (coronary artery disease) Qualifiers: Coronary Disease-Associated Artery/Lesion type: [place] artery [place] vs. transplanted heart: unspecified whether [place] or transplanted heart Associated angina: angina presence unspecified Qualified Code(s): I25.10 - Atherosclerotic heart disease of [place] coronary artery without angina pectoris
[2019-03-27] MEDS: Budesonide/Formoterol 160/4.5 1 PUFF INH IH SCH ×2 (10:45→22:20)
[2019-03-27] MEDS: Ipratropium/Albuterol Neb 3 ML IH SCH ×2 (10:45→22:20)
--- NOTE | 2019-03-27 13:11 | AcuteCareSurgery Progress Note ---
Date of Encounter: 03/27/19 Time of Encounter: 11:00 - Assessment and Plan (1) Acute cholecystitis Current Visit: Yes Status: Acute s/p Lap lonnie. Maintain drain. Will DC drain at post-op follow-up. OK to restart all home meds, including plavix and eliquis. Surgery signing off. (2) Cholelithiasis Current Visit: No Status: Chronic Qualifiers: Cholelithiasis location: gallbladder Cholecystitis presence: without cholecystitis Biliary obstruction: without biliary obstruction Qualified C ode(s): K80.20 - Calculus of gallbladder without cholecystitis without obstruction (3) CHF (congestive heart failure) Current Visit: No Status: Acute Qualifiers: Heart failure type: combined systolic and diastolic Heart failure chronicity: acute on chronic Qualified Code(s): I50.43 - Acute on chronic combined systolic (congestive) and diastolic (congestive) heart failure (4) Pulmonary embolism Current Visit: Yes Status: Chronic Qualifiers: Pulmonary embolism type: other Chronicity: chronic Acute cor pulmonale presence: without acute cor pulmonale Qualified Code(s): I27.82 - Chronic pulmonary embolism (5) Cardiomyopathy Current Visit: No Status: Acute Qualifiers: Cardiomyopathy type: unspecified Qualified Code(s): I42.9 - Cardiomyopathy, unspecified (6) A-fib Current Visit: No Status: Acute Qualifiers: Atrial fibrillation type: unspecified Qualified Code(s): I48.91 - Unspecified atrial fibrillation (7) Diabetes mellitus type 2 with complications Current Visit: Yes Status: Chronic Qualifiers: Diabetes mellitus half-way insulin use: without rn long term care use Qualified Code(s): E11.8 - Type 2 diabetes mellitus with unspecified complications (8) COPD (chronic obstructive pulmonary disease) Current Visit: No Status: Chronic Qualifiers: COPD type: emphysema Emphysema type: unspecified Qualified Code(s): J43.9 - Emphysema, unspecified Subjective Patient reports: feels better, still having pain, pain is less, tolerating a regular diet, flatus Narrative: POD#2 Lap lonnie Objective Vital Signs - Last 8 Hours Temp Pulse Resp BP Pulse Ox 03/27/19 10:56 97.8 F 100 16 100/56 96 03/27/19 10:45 12 96 03/27/19 07:55 129/82 03/27/19 07:23 97.8 F 119 16 212/103 97 Intake and Output 03/26/19 03/27/19 03/27/19 23:59 07:59 15:59 Intake Total 120 / 1980 120 / 240 120 / 240 Output Total 295 / 563 470 / 480 10 / 480 Balance -175 / 1417 -350 / -240 110 / -240 Intake: IV Fluids 120 / 1340 120 / 120 Maxipime 2,000 MG In Water for 20 40 20 / 20 inj. (sterile) 20 ML @ 300 mls/ hr IVP Q8HR [facility] Rx#:[id number] Flagyl Premix 500 MG/100 ML 500 100 / 300 100 / 100 mg In 100 ml @ 100 mls/hr IVPB Q8HR [facility] Rx#:[id number] Oral 0 / 640 0 / 120 120 / 120 Output: Urine 200 / 350 350 / 350 0 / 350 Wound Drainage 95 / 213 120 / 130 10 / 130 Right Lower Abdomen 95 / 213 120 / 130 10 / 130 Other: Meal Breakfast Percent of Meal Consumed 90% # Voids 1 Blood Glucose* 206 254 229 - General physical appearance no distress, moderate pain (much, much improved) - Eyes PERRL, normal ocular movement - ENT normal mucosa, no congestion - Respiratory normal respiratory effort, clear to auscultation - Cardiovascular Cardiovascular exam: Present: irregular rhythm - Abdomen Abdomen: Present: bowel sounds present Additional Comments: GILLIAN with moderate output - Incision Incision: Present: clean and dry, intact - Neurologic CN 2-12 grossly intact - Musculoskeletal normal posture - Psychiatric oriented to time, oriented to person, oriented to place - Labs 03/27/19 08:04 03/27/19 08:04 Diabetes panel 03/27/19 Range/Units 08:04 Sodium 138 (136-145) mEq/L Potassium 4.3 (3.5-5.1) mEq/L Chloride 105 (98-107) mEq/L Carbon Dioxide 27 (23-29) mEq/L BUN 12 (8-23) mg/dL Creatinine 0.51 L (0.60-1.20) mg/dL Glucose 239 H (70-105) mg/dL Calcium 8.3 L (8.6-10.3) mg/dL Calcium panel 03/27/19 Range/Units 08:04 Calcium 8.3 L (8.6-10.3) mg/dL Pituitary panel 03/27/19 Range/Units 08:04 Sodium 138 (136-145) mEq/L Potassium 4.3 (3.5-5.1) mEq/L Chloride 105 (98-107) mEq/L Carbon Dioxide 27 (23-29) mEq/L BUN 12 (8-23) mg/dL Creatinine 0.51 L (0.60-1.20) mg/dL Glucose 239 H (70-105) mg/dL Calcium 8.3 L (8.6-10.3) mg/dL Adrenal panel 03/27/19 Range/Units 08:04 Sodium 138 (136-145) mEq/L Potassium 4.3 (3.5-5.1) mEq/L Chloride 105 (98-107) mEq/L Carbon Dioxide 27 (23-29) mEq/L BUN 12 (8-23) mg/dL Creatinine 0.51 L (0.60-1.20) mg/dL Glucose 239 H (70-105) mg/dL Calcium 8.3 L (8.6-10.3) mg/dL Consult Discharge Plan - Plan Additional Instructions: F/U in 2 weeks and maintain drain until F/U Referrals: Maisha Ruth CNP [Primary Care Provider] - Cameron Kirby MD [Partnered Physician] -
[2019-03-27] MEDS ORDERED: Insulin DETEMIR 100 UNIT/ML X5UNITS SQ ONE (13:33)
[2019-03-27] MEDS ORDERED: *HR* Metoprolol 5 MG/5 ML VIAL IVP ONE (13:39)
[2019-03-27] MEDS: metroNIDAZOLE 500 MG TABLET PO SCH ×2 (16:21→20:38)
[2019-03-27] MEDS: Apixaban 5 MG TABLET PO SCH ×2 (16:22→20:38)
[2019-03-27] MEDS: Furosemide 20 MG/2 ML VIAL IVP SCH (16:22)
[2019-03-27] MEDS: *HR* Amiodarone 200 MG TABLET PO SCH (16:22)
[2019-03-27] MEDS: risperiDONE 1 MG TABLET PO SCH (20:38)
[2019-03-27] MEDS: lamoTRIgine 100 MG TABLET PO SCH (20:38)
[2019-03-28 03:43] LABS: Hematocrit 24.7 % (35.3-44.9); Hemoglobin 7.9 g/dL (11.5-15.4); Mean Corpuscular Hemoglobin 33.5 pg (28.0-33.3); Mean Corpuscular Volume 104.7 fL (83.0-100.0); Mean Platelet Volume 10.2 fL (9.4-12.4); Nucleated Red Blood Cells 0.7 /100 WBC (0); Platelet Count 101 K/mcL (140-400); Red Blood Count 2.36 M/mcL (3.82-4.97); Red Cell Distribution Width 14.4 % (11.5-14.5)
[2019-03-28 04:07] LABS: BUN/Creatinine Ratio 26 (6-26); Blood Urea Nitrogen 14 mg/dL (8-23); Calcium 8.4 mg/dL (8.6-10.3); Carbon Dioxide 33 mEq/L (23-29); Chloride 104 mEq/L (98-107); Glucose 111 mg/dL (70-105); Osmolality,Calculated 293 (280-300); Potassium 3.2 mEq/L (3.5-5.1); Sodium 141 mEq/L (136-145); Troponin I 0.05 ng/mL (< 0.04); eGFR For Non-African Americans > 60 (> 60)
[2019-03-28 04:19] LABS: Lymphocytes # 0.7 K/mcL (0.6-4.6); Monocytes # 0.7 K/mcL (0.0-1.3); Platelet Estimate Decreased (Normal)
[2019-03-28] MEDS: *HR* OxyCODONE/APAP 10/325 TABLET PO PRN ×2 (05:49→13:07)
[2019-03-28] MEDS: Insulin LISPRO 300 UNITS/3 ML VIAL SQ SCH ×4 (07:20→21:39)
[2019-03-28] MEDS: Furosemide 20 MG/2 ML VIAL IVP SCH ×2 (08:23→16:08)
[2019-03-28] MEDS: Sucralfate 1 GM TABLET PO SCH ×4 (08:24→21:33)
[2019-03-28] MEDS: metroNIDAZOLE 500 MG TABLET PO SCH ×3 (08:25→21:32)
[2019-03-28] MEDS: Apixaban 5 MG TABLET PO SCH ×2 (08:25→21:32)
[2019-03-28] MEDS: *HR* Amiodarone 200 MG TABLET PO SCH (08:25)
--- NOTE | 2019-03-28 08:57 | AcuteCareSurgery Progress Note ---
Date of Encounter: 03/28/19 Time of Encounter: 08:00 - Assessment and Plan (1) Acute cholecystitis Current Visit: Yes Status: Acute s/p Lap lonnie. Maintain drain. Will DC drain at post-op follow-up. OK to restart all home meds, including plavix and eliquis. Surgery signing off. (2) Cholelithiasis Current Visit: No Status: Chronic Qualifiers: Cholelithiasis location: gallbladder Cholecystitis presence: without cholecystitis Biliary obstruction: without biliary obstruction Qualified C ode(s): K80.20 - Calculus of gallbladder without cholecystitis without obstruction (3) CHF (congestive heart failure) Current Visit: No Status: Acute Qualifiers: Heart failure type: combined systolic and diastolic Heart failure chronicity: acute on chronic Qualified Code(s): I50.43 - Acute on chronic combined systolic (congestive) and diastolic (congestive) heart failure (4) Pulmonary embolism Current Visit: Yes Status: Chronic Qualifiers: Pulmonary embolism type: other Chronicity: chronic Acute cor pulmonale presence: without acute cor pulmonale Qualified Code(s): I27.82 - Chronic pulmonary embolism (5) Cardiomyopathy Current Visit: No Status: Acute Qualifiers: Cardiomyopathy type: unspecified Qualified Code(s): I42.9 - Cardiomyopathy, unspecified (6) A-fib Current Visit: No Status: Acute Qualifiers: Atrial fibrillation type: unspecified Qualified Code(s): I48.91 - Unspecified atrial fibrillation (7) Diabetes mellitus type 2 with complications Current Visit: Yes Status: Chronic Qualifiers: Diabetes mellitus care home insulin use: without predatory animal exterminator use Qualified Code(s): E11.8 - Type 2 diabetes mellitus with unspecified complications (8) COPD (chronic obstructive pulmonary disease) Current Visit: No Status: Chronic Qualifiers: COPD type: emphysema Emphysema type: unspecified Qualified Code(s): J43.9 - Emphysema, unspecified Subjective Patient reports: feels better, still having pain, pain is less, tolerating a regular diet, flatus, other (C/O feet and leg pain) Objective Vital Signs - Last 8 Hours Temp Pulse Resp BP Pulse Ox 03/28/19 06:45 97.9 F 102 16 165/77 97 03/28/19 02:27 97.9 F 115 14 106/73 90 Intake and Output 05/03/1203/28/19 03/28/19 23:59 07:59 15:59 Intake Total 0 / 840 0 / 0 Output Total 1000 / 1900 860 / 860 Balance -1000 / -1060 -860 / -860 Intake: Oral 0 / 600 0 / 0 Output: Urine 1000 / 1750 750 / 750 Wound Drainage 110 / 110 Right Lower Abdomen 110 / 110 Other: # Bowel Movements 0 Blood Glucose* 238 124 - General physical appearance well developed, well nourished, no distress, no pain (pain well controlled) - ENT normal mucosa, no congestion - Neck Neck exam: no venous distension - Respiratory normal respiratory effort, clear to auscultation - Cardiovascular Cardiovascular exam: Present: irregular rhythm - Abdomen Abdomen: Present: bowel sounds present, soft, tender Additional Comments: GILLIAN with moderate serosanguinous output. No blood, no bile. - Incision Incision: Present: clean and dry, intact - Integumentary no rash, other (no jaundice) - Neurologic CN 2-12 grossly intact - Musculoskeletal normal posture - Psychiatric oriented to time, oriented to person, oriented to place - Labs 03/28/19 03:28 03/28/19 03:28 Diabetes panel 03/27/19 03/28/19 Range/Units 08:04 03:28 Sodium 138 141 (136-145) mEq/L Potassium 4.3 3.2 L D (3.5-5.1) mEq/L Chloride 105 104 (98-107) mEq/L Carbon Dioxide 27 33 H (23-29) mEq/L BUN 12 14 (8-23) mg/dL Creatinine 0.51 L 0.53 L (0.60-1.20) mg/dL Glucose 239 H 111 H (70-105) mg/dL Calcium 8.3 L 8.4 L (8.6-10.3) mg/dL Calcium panel 03/27/19 03/28/19 Range/Units 08:04 03:28 Calcium 8.3 L 8.4 L (8.6-10.3) mg/dL Pituitary panel 03/27/19 03/28/19 Range/Units 08:04 03:28 Sodium 138 141 (136-145) mEq/L Potassium 4.3 3.2 L D (3.5-5.1) mEq/L Chloride 105 104 (98-107) mEq/L Carbon Dioxide 27 33 H (23-29) mEq/L BUN 12 14 (8-23) mg/dL Creatinine 0.51 L 0.53 L (0.60-1.20) mg/dL Glucose 239 H 111 H (70-105) mg/dL Calcium 8.3 L 8.4 L (8.6-10.3) mg/dL Adrenal panel 03/27/19 03/28/19 Range/Units 08:04 03:28 Sodium 138 141 (136-145) mEq/L Potassium 4.3 3.2 L D (3.5-5.1) mEq/L Chloride 105 104 (98-107) mEq/L Carbon Dioxide 27 33 H (23-29) mEq/L BUN 12 14 (8-23) mg/dL Creatinine 0.51 L 0.53 L (0.60-1.20) mg/dL Glucose 239 H 111 H (70-105) mg/dL Calcium 8.3 L 8.4 L (8.6-10.3) mg/dL Consult Discharge Plan - Plan Additional Instructions: F/U in 2 weeks and maintain drain until F/U Referrals: Cameron Kirby MD [Partnered Physician] - Maisha Ruth CNP [Primary Care Provider] -
[2019-03-28] MEDS: Ipratropium/Albuterol Neb 3 ML IH SCH ×2 (10:39→22:00)
[2019-03-28] MEDS: Budesonide/Formoterol 160/4.5 1 PUFF INH IH SCH ×2 (10:39→22:00)
[2019-03-28] MEDS ORDERED: *HR* Metoprolol 5 MG/5 ML VIAL IVP ONE (11:19)
--- NOTE | 2019-03-28 11:38 | Internal Med Progress Note ---
Hospitalist Progress Note - Encounter Date of Encounter: 03/28/19 Time of Encounter: 08:32 - Subjective Interval History: Patient seen and examined this morning at bedside. Patient feeling better however worried about her leg swelling as she is not able to walk properly. Denies any chest pain, palpitation or difficulty breathing. Has been having good urine output. - Exam Vitals: Temp Pulse Resp BP Pulse Ox 97.9 F 102 18 147/84 98 03/28/19 10:30 03/28/19 10:30 03/28/19 10:30 03/28/19 10:30 03/28/19 10:30 Exam: General: In no acute distress. Respiratory exam: Occasional scattered rhonchi. No accessory muscle use. No rales Cardiovascular exam: tachycardic, +S1, +S2. no murmur, gallop, rubs. GI/Abdominal exam: mild abdominal tenderness RUQ, soft, no peritoneal signs, GILLIAN drain in RUQ Extremities exam: 2+ pedal edema, no calf tenderness Neurological exam: CN II-XII intact, AO X3, no focal deficits. - Assessment and Plan (1) Diabetes mellitus type 2 with complications Current Visit: Yes Status: Chronic (2) Adrenal insufficiency Current Visit: Yes Status: Acute (3) Squamous cell carcinoma of lung, stage IV Current Visit: Yes Status: Chronic (4) Pulmonary embolism Current Visit: Yes Status: Chronic (5) DVT prophylaxis Current Visit: Yes Status: Acute (6) Acute cholecystitis Current Visit: Yes Status: Acute (7) Sepsis Current Visit: Yes Status: Acute (8) COPD (chronic obstructive pulmonary disease) Current Visit: Yes Status: Chronic (9) HFrEF (heart failure with reduced ejection fraction) Current Visit: Yes Status: Chronic (10) CAD (coronary artery disease) Current Visit: Yes Status: Chronic - Summary of Assessment and Plan Summary of Assessment and Plan: HFrEF - Recent diagnosis with EF 30-35% on echo 01/2019. Declined [facility] at that time - natalio-i on hold due to borderline BP. Will resume on dc - Developed volume overload after IVF post opt - c/w diuresis. Has good urine output. Sepsis - resolved - Secondary to acute cholecystitis. s/p Laparoscopic cholecystectomy, intraoperative cholangiogram, GILLIAN drain placement. - No intra opt cultures. blood cultures NGTD. c/w cipro and flagyl to finish 10 day course - Surgery signed off. will keep GILLIAN drain for now and dc on f/u with surgery outpatient. - incentive spirometry and duonebs - Code status DNR CCA. Acute cholecystitis - s/p surgery - as above. Pulmonary embolism - Diagnosis of December 2018, had been on Eliquis since then - Repeat CTA in January did not show any evidence of PE - DVT study negative. - s/p IVC filter before surgery - apixan resumed. Afib - c/w eliquis - c/w amiodarone and IV metoprolol prn. HR in low 100 now COPD - Not in exacerbation. - c/w symbicort and scheduled and prn duoneb. Incentive spirometry Adrenal insufficiency - c/w home dexamethasone and Florinef Diabetes mellitus type 2 with complications - SSI and accuchecks. diabetic diet - c/w levemir 10 mg HS CAD - Plavix resumed, c/w statin - BP medication on hold for now. DVT prophylaxis - on apixaban Mestatic lung ca - on palliative chemo outpatient. f/u PT/OT - Time Spent with Patient Total time spent is greater than 50% in coordination of care (as documented) at patient's floor/unit and/or counseling patient: Internal Medicine: Result - Labs CBC & Chem 7: 03/28/19 03:28 03/28/19 03:28 Labs: Short CBC 03/28/19 Range/Units 03:28 WBC 11.4 H (4.3-11.1) K/mcL Hgb 7.9 L (11.5-15.4) g/dL Hct 24.7 L (35.3-44.9) % Plt Count 101 L (140-400) K/mcL Neutrophils # 10.0 H (1.6-8.9) K/mcL BMP 03/28/19 03:28 Sodium 141 Potassium 3.2 L D Chloride 104 Carbon Dioxide 33 H BUN 14 Creatinine 0.53 L Glucose 111 H Calcium 8.4 L Cardiac Enzymes 03/28/19 Range/Units 03:28 Troponin I 0.05 H* (< 0.04) ng/mL - ABG Interpretation ABG results: ABG ABG pH 7.40 pH Units (7.32-7.45) 03/23/19 15:59 ABG pCO2 55 mmHg (35-45) H 04/30/19 15:59 ABG pO2 74 mmHg (85-104) L 03/23/19 15:59 ABG O2 Saturation 94 % (95-98) L 03/23/19 15:59 PT/INR, D-dimer PT 12.3 Seconds (9.4-12.1) H 03/25/19 18:45 Consult Discharge Plan - Plan Additional Instructions: F/U in 2 weeks and maintain drain until F/U Referrals: Cameron Kirby MD [Partnered Physician] - Maisha Ruth CNP [Primary Care Provider] - (1) Diabetes mellitus type 2 with complications Qualifiers: Diabetes mellitus jail insulin use: without technician terminal and repeater use Qualified Code(s): E11.8 - Type 2 diabetes mellitus with unspecified complications (3) Squamous cell carcinoma of lung, stage IV Qualifiers: Laterality: unspecified laterality Qualified Code(s): C34.90 - Malignant neoplasm of unspecified part of unspecified bronchus or lung (4) Pulmonary embolism Qualifiers: Pulmonary embolism type: other Chronicity: chronic Acute cor pulmonale presence: without acute cor pulmonale Qualified Code(s): I27.82 - Chronic pu lmonary embolism (7) Sepsis Qualifiers: Sepsis type: sepsis due to unspecified organism Qualified Code(s): A41.9 - Sepsis, unspecified organism (8) COPD (chronic obstructive pulmonary disease) Qualifiers: Emphysema type: unspecified Qualified Code(s): J43.9 - Emphysema, unspecified (9) HFrEF (heart failure with reduced ejection fraction) Qualifiers: Heart failure chronicity: chronic Qualified Code(s): I50.22 - Chronic systoli c (congestive) heart failure (10) CAD (coronary artery disease) Qualifiers: Coronary Disease-Associated Artery/Lesion type: [place] artery [place] vs. transplanted heart: unspecified whether [place] or transplanted heart Associated angina: angina presence unspecified Qualified Code(s): I25.10 - Atherosclerotic heart disease of [place] coronary artery without angina pectoris
[2019-03-28] MEDS ORDERED: *HR* Metoprolol 5 MG/5 ML VIAL IVP PRN (11:43)
[2019-03-28] MEDS: OXYCODONE Oral CONC 10 MG/0.5 ML ORAL.SYG SL PRN (19:24)
[2019-03-28] MEDS: lamoTRIgine 100 MG TABLET PO SCH (21:32)
[2019-03-28] MEDS: risperiDONE 1 MG TABLET PO SCH (21:33)
[2019-03-28] MEDS: Insulin DETEMIR 100 UNIT/ML X5UNITS SQ SCH (23:08)
[2019-03-29 04:54] LABS: Basophils % 0.2 %; Hematocrit 24.1 % (35.3-44.9); Hemoglobin 7.8 g/dL (11.5-15.4); Immature Granulocytes % 5.4 % (0-4); Lymphocytes # 0.9 K/mcL (0.6-4.6); Lymphocytes % 9.2 %; Mean Corpuscular HGB Conc 32.4 g/dL (31.6-35.5); Mean Corpuscular Hemoglobin 33.2 pg (28.0-33.3); Mean Corpuscular Volume 102.6 fL (83.0-100.0); Mean Platelet Volume 10.2 fL (9.4-12.4); Monocytes # 0.4 K/mcL (0.0-1.3); Monocytes % 3.7 %; Neutrophils # 8.2 K/mcL (1.6-8.9); Nucleated Red Blood Cells 0.6 /100 WBC (0); Platelet Count 126 K/mcL (140-400); Red Blood Count 2.35 M/mcL (3.82-4.97); Red Cell Distribution Width 14.5 % (11.5-14.5); Segmented Neutrophils % 81.5 %
[2019-03-29 05:16] LABS: BUN/Creatinine Ratio 28 (6-26); Blood Urea Nitrogen 13 mg/dL (8-23); Carbon Dioxide 36 mEq/L (23-29); Chloride 100 mEq/L (98-107); Glucose 182 mg/dL (70-105); Osmolality,Calculated 295 (280-300); Potassium 3.1 mEq/L (3.5-5.1); Sodium 140 mEq/L (136-145); eGFR For Non-African Americans > 60 (> 60)
[2019-03-29 05:29] LABS: Basophilic Stippling 1+ (Not Present); Hypochromasia Present (Not Present); Polychromasia 2+ (Not Present)
[2019-03-29 05:30] LABS: Platelet Estimate Slight Decrease (Normal)
[2019-03-29] MEDS: Insulin LISPRO 300 UNITS/3 ML VIAL SQ SCH ×4 (09:55→22:35)
[2019-03-29] MEDS: *HR* Amiodarone 200 MG TABLET PO SCH (10:25)
[2019-03-29] MEDS: *HR* OxyCODONE/APAP 10/325 TABLET PO PRN ×2 (10:25→18:34)
[2019-03-29] MEDS: metroNIDAZOLE 500 MG TABLET PO SCH ×3 (10:25→22:36)
[2019-03-29] MEDS: Sucralfate 1 GM TABLET PO SCH ×4 (10:25→22:36)
[2019-03-29] MEDS: Furosemide 20 MG/2 ML VIAL IVP SCH ×2 (10:25→18:33)
[2019-03-29] MEDS: Apixaban 5 MG TABLET PO SCH ×2 (10:25→22:36)
[2019-03-29] MEDS: Budesonide/Formoterol 160/4.5 1 PUFF INH IH SCH ×2 (10:31→21:00)
[2019-03-29] MEDS: Ipratropium/Albuterol Neb 3 ML IH SCH ×2 (10:40→21:00)
[2019-03-29] MEDS: clonazePAM 1 MG TABLET PO PRN (12:42)
--- NOTE | 2019-03-29 12:54 | Internal Med Progress Note ---
Hospitalist Progress Note - Encounter Date of Encounter: 03/29/19 Time of Encounter: 10:55 - Subjective Interval History: Patient seen and examined this morning at bedside. No acute overnight events. Complains of swelling in her feet. Denies any chest pain shortness of breath. Denies any abdominal pain. - Exam Vitals: Temp Pulse Resp BP Pulse Ox 98.1 F 116 14 129/87 97 03/29/19 10:04 03/29/19 10:04 03/29/19 10:04 03/29/19 10:04 03/29/19 10:04 Exam: General: In no acute distress. Respiratory exam: Occasional scattered rhonchi. No accessory muscle use. No rales Cardiovascular exam: tachycardic, +S1, +S2. no murmur, gallop, rubs. GI/Abdominal exam: no abdominal tenderness, soft, no peritoneal signs, GILLIAN drain in RUQ Extremities exam: 2+ pedal edema, no calf tenderness Neurological exam: CN II-XII intact, AO X3, no focal deficits. - Assessment and Plan (1) Diabetes mellitus type 2 with complications Current Visit: Yes Status: Chronic (2) Adrenal insufficiency Current Visit: Yes Status: Acute (3) Squamous cell carcinoma of lung, stage IV Current Visit: Yes Status: Chronic (4) Pulmonary embolism Current Visit: Yes Status: Chronic (5) DVT prophylaxis Current Visit: Yes Status: Acute (6) Acute cholecystitis Current Visit: Yes Status: Acute (7) Sepsis Current Visit: Yes Status: Acute (8) COPD (chronic obstructive pulmonary disease) Current Visit: Yes Status: Chronic (9) HFrEF (heart failure with reduced ejection fraction) Current Visit: Yes Status: Chronic (10) CAD (coronary artery disease) Current Visit: Yes Status: Chronic - Summary of Assessment and Plan Summary of Assessment and Plan: HFrEF - Recent diagnosis with EF 30-35% on echo 01/2019. Declined [facility] at that time - natalio-i on hold due to borderline BP. Will resume on dc - Developed volume overload after IVF post opt - c/w diuresis. Has good urine output. - Will give 1 PRBC given tachycardic and demand ischemia. Sepsis - resolved - Secondary to acute cholecystitis. s/p Laparoscopic cholecystectomy, intraoperative cholangiogram, GILLIAN drain placement. - No intra opt cultures. blood cultures NGTD. c/w cipro and flagyl to finish 10 day course - Surgery signed off. will keep GILLIAN drain for now and dc on f/u with surgery outpatient. - incentive spirometry and duonebs - Code status DNR CCA. Acute cholecystitis - s/p surgery - as above. Pulmonary embolism - Diagnosis of December 2018, had been on Eliquis since then - Repeat CTA in January did not show any evidence of PE - DVT study negative. - s/p IVC filter before surgery - apixban resumed. Afib - c/w eliquis - c/w amiodarone and IV metoprolol prn. HR in low 100 now - In sinus tachycardia. Will give 1 PRBC with possible demand ischmeia and anemia and afib. COPD - Not in exacerbation. - c/w symbicort and scheduled and prn duoneb. Incentive spirometry Adrenal insufficiency - c/w home dexamethasone and Florinef - start patient on PPI Diabetes mellitus type 2 with complications - SSI and accuchecks. diabetic diet - c/w levemir 10 mg HS CAD - Plavix resumed, c/w statin - BP medication on hold for now. DVT prophylaxis - on apixaban Mestatic lung ca - on palliative chemo outpatient. f/u PT/OT - Time Spent with Patient Total time spent is greater than 50% in coordination of care (as documented) at patient's floor/unit and/or counseling patient: Internal Medicine: Result - Labs CBC & Chem 7: 03/29/19 04:30 03/29/19 04:30 Labs: Short CBC 03/29/19 Range/Units 04:30 WBC 10.0 (4.3-11.1) K/mcL Hgb 7.8 L (11.5-15.4) g/dL Hct 24.1 L (35.3-44.9) % Plt Count 126 L (140-400) K/mcL Neutrophils # 8.2 (1.6-8.9) K/mcL BMP 03/29/19 04:30 Sodium 140 Potassium 3.1 L Chloride 100 Carbon Dioxide 36 H BUN 13 Creatinine 0.46 L Glucose 182 H Calcium 8.0 L - ABG Interpretation ABG results: ABG ABG pH 7.40 pH Units (7.32-7.45) 03/23/19 15:59 ABG pCO2 55 mmHg (35-45) H 04/30/19 15:59 ABG pO2 74 mmHg (85-104) L 03/23/19 15:59 ABG O2 Saturation 94 % (95-98) L 03/23/19 15:59 PT/INR, D-dimer PT 12.3 Seconds (9.4-12.1) H 03/25/19 18:45 Consult Discharge Plan - Plan Additional Instructions: F/U in 2 weeks and maintain drain until F/U Referrals: Cameron Kirby MD [Partnered Physician] - Maisha Ruth CNP [Primary Care Provider] - (1) Diabetes mellitus type 2 with complications Qualifiers: Diabetes mellitus terminal makeup operator insulin use: without senior living use Qualified Code(s): E11.8 - Type 2 diabetes mellitus with unspecified complications (3) Squamous cell carcinoma of lung, stage IV Qualifiers: Laterality: unspecified laterality Qualified Code(s): C34.90 - Malignant neoplasm of unspecified part of unspecified bronchus or lung (4) Pulmonary embolism Qualifiers: Pulmonary embolism type: other Chronicity: chronic Acute cor pulmonale presence: without acute cor pulmonale Qualified Code(s): I27.82 - Chronic pulmonary embolism (7) Sepsis Qualifiers: Sepsis type: sepsis due to unspecified organism Qualified Code(s): A41.9 - Sepsis, unspecified organism (8) COPD (chronic obstructive pulmonary disease) Qualifiers: Emphysema type: unspecified Qualified Code(s): J43.9 - Emphysema, unspecified (9) HFrEF (heart failure with reduced ejection fraction) Qualifiers: Heart failure chronicity: chronic Qualified Code(s): I50.22 - Chronic systolic (congestive) heart failure (10) CAD (coronary artery disease) Qualifiers: Coronary Disease-Associated Artery/Lesion type: [place] artery [place] vs. transplanted heart: unspecified whether [place] or transplanted heart Associated angina: angina presence unspecified Qualified Code(s): I25.10 - Atherosclerotic heart disease of [place] coronary artery without angina pectoris
[2019-03-29] MEDS ORDERED: 0.9 % Sodium Chloride 250 ML ONE (15:16)
[2019-03-29] MEDS: Pantoprazole 40 MG VIAL IVP SCH (15:18)
[2019-03-29] MEDS: Insulin DETEMIR 100 UNIT/ML X5UNITS SQ SCH (22:36)
[2019-03-29] MEDS: risperiDONE 1 MG TABLET PO SCH (22:36)
[2019-03-29] MEDS: lamoTRIgine 100 MG TABLET PO SCH (22:36)
[2019-03-30] MEDS: *HR* OxyCODONE/APAP 10/325 TABLET PO PRN (02:35)
[2019-03-30 04:57] LABS: Basophils % 0.3 %; Hemoglobin 9.2 g/dL (11.5-15.4); Immature Granulocytes % 4.1 % (0-4); Lymphocytes # 0.8 K/mcL (0.6-4.6); Lymphocytes % 8.3 %; Mean Corpuscular HGB Conc 32.9 g/dL (31.6-35.5); Mean Corpuscular Hemoglobin 31.8 pg (28.0-33.3); Mean Corpuscular Volume 96.9 fL (83.0-100.0); Mean Platelet Volume 10.2 fL (9.4-12.4); Monocytes # 0.4 K/mcL (0.0-1.3); Monocytes % 3.8 %; Neutrophils # 8.1 K/mcL (1.6-8.9); Nucleated Red Blood Cells 0.3 /100 WBC (0); Platelet Count 129 K/mcL (140-400); Red Blood Count 2.89 M/mcL (3.82-4.97); Red Cell Distribution Width 17.1 % (11.5-14.5); Segmented Neutrophils % 83.5 %
[2019-03-30 05:14] LABS: BUN/Creatinine Ratio 33 (6-26); Blood Urea Nitrogen 16 mg/dL (8-23); Calcium 7.9 mg/dL (8.6-10.3); Carbon Dioxide 39 mEq/L (23-29); Chloride 98 mEq/L (98-107); Glucose 182 mg/dL (70-105); Osmolality,Calculated 298 (280-300); Potassium 3.1 mEq/L (3.5-5.1); Sodium 141 mEq/L (136-145); eGFR For Non-African Americans > 60 (> 60)
[2019-03-30] MEDS: Budesonide/Formoterol 160/4.5 1 PUFF INH IH SCH ×2 (07:59→22:04)
[2019-03-30] MEDS: Ipratropium/Albuterol Neb 3 ML IH SCH ×2 (07:59→22:04)
[2019-03-30] MEDS: Insulin LISPRO 300 UNITS/3 ML VIAL SQ SCH ×4 (08:36→20:44)
[2019-03-30] MEDS: Pantoprazole 40 MG VIAL IVP SCH (08:36)
[2019-03-30] MEDS: clonazePAM 1 MG TABLET PO PRN ×2 (08:36→20:43)
[2019-03-30] MEDS: Furosemide 20 MG/2 ML VIAL IVP SCH ×2 (08:36→16:53)
[2019-03-30] MEDS: metroNIDAZOLE 500 MG TABLET PO SCH ×2 (08:37→14:35)
[2019-03-30] MEDS: OXYCODONE Oral CONC 10 MG/0.5 ML ORAL.SYG SL PRN (08:37)
[2019-03-30] MEDS: *HR* Amiodarone 200 MG TABLET PO SCH (08:38)
[2019-03-30] MEDS: Sucralfate 1 GM TABLET PO SCH ×2 (08:38→11:28)
[2019-03-30] MEDS: Apixaban 5 MG TABLET PO SCH ×2 (08:38→20:43)
--- NOTE | 2019-03-30 15:38 | Discharge Summary ---
- NOTES TO OUTPATIENT PROVIDER Notes to Outpatient Provider: Patient was noted to follow-up with surgery as outpatient to remove GILLIAN drain. Patient to follow-up with oncology as outpatient. Patient to continue few more day of lasix. Date of Encounter: 03/30/19 Time of Encounter: 12:37 - Discharge Diagnosis (1) Diabetes mellitus type 2 with complications Priority: Secondary Status: Chronic Qualifiers: Diabetes mellitus oil heaterman insulin use: without oil heaterman use Qualified Code(s): E11.8 - Type 2 diabetes mellitus with unspecified complications (2) Adrenal insufficiency Priority: Secondary Status: Acute (3) Squamous cell carcinoma of lung, stage IV Priority: Secondary Status: Chronic Qualifiers: Laterality: unspecified laterality Qualified Code(s): C34.90 - Malignant neoplasm of unspecified part of unspecified bronchus or lung (4) Pulmonary embolism Priority: Secondary Status: Chronic Qualifiers: Pulmonary embolism type: other Chronicity: chronic Acute cor pulmonale presence: without acute cor pulmonale Qualified Code(s): I27.82 - Chronic pulmonary embolism (5) DVT prophylaxis Priority: Secondary Status: Acute (6) Acute cholecystitis Priority: Primary Status: Acute (7) Sepsis Priority: Primary Status: Acute Qualifiers: Sepsis type: sepsis due to unspecified organism Qualified Code(s): A41.9 - Sepsis, unspecified organism (8) COPD (chronic obstructive pulmonary disease) Priority: Secondary Status: Chronic Qualifiers: Emphysema type: unspecified Qualified Code(s): J43.9 - Emphysema, unspecified (9) HFrEF (heart failure with reduced ejection fraction) Priority: Secondary Status: Chronic Qualifiers: Heart failure chronicity: chronic Qualified Code(s): I50.22 - Chronic systolic (congestive) heart failure (10) CAD (coronary artery disease) Priority: Secondary Status: Chronic Qualifiers: Coronary Disease-Associated Artery/Lesion type: [place] artery [place] vs. transplanted heart: unspecified whether [place] or transplanted heart Associated angina: angina presence unspecified Qualified Code(s): I25.10 - Atherosclerotic heart disease of [place] coronary artery without angina pectoris (11) A-fib Priority: Secondary Status: Acute Qualifiers: Atrial fibrillation type: unspecified Qualified Code(s): I48.91 - Unspecified atrial fibrillation Hospital course: Ms. Mace is a 63 year old female with past medical history of COPD, CHF, coronary artery disease, diabetes, PE, atrial fibrillation with stage IV squamous cell carcinoma who recently had cholecystostomy tube placed in December came in with right lower quadrant pain was found to have sepsis due to acute cholecystitis. Patient was started on empiric antibiotics and IV fluids. Surgery was consulted. Patient was found to be very high risk for surgery. Cardiology consult was obtained who confirm high risk to undergo procedure. After discussion with palliative care patient did not want undergo surgery and take chances. As patient was not on anticoagulation for A. fib and PE patient had IVC filter placed. Patient underwent surgery on 04/04/18 laparoscopic cholecystectomy and a GILLIAN drain placement. Patient did well after surgery however developed fluid overload from IV fluids. She became tachycardic after surgery in with history of A. fib she was started on amiodarone. She was given 1 unit of PRBC given anemia and history of coronary artery disease with decreased ejection fraction. Lisinopril was held due to blood pressures from lower end. Patient being diuresed well with IV Lasix and is otherwise stable to be discharged. We will need to continue diuresing for at least 5 more days and monitor renal function closely however she is stable to be discharged to rehabilitation is recommended by physical therapy. Patient will continue to have GILLIAN drain in place per surgery and would be taken out as outpatient. His Plavixasbeforedischargeandherhemoglobinremainedstable Discharge discussed with: patient, nurse, social work, case management - Time Spent with Patient Total time spent providing and/or coordinating discharge services: Time spent: Greater than 30 minutes (40) - Discharge Medications Prescriptions: New Amiodarone [Cordarone] 200 mg PO DAILY tablet Omeprazole [PriLOSEC] 20 mg PO DAILY 30 Days #30 cap Continued Doxepin [Sinequan] 50 mg PO HS Clopidogrel [Plavix] 75 mg PO DAILY Citalopram [CeleXA] 40 mg PO DAILY Simvastatin [Zocor] 40 mg PO HS Apixaban [Eliquis] 5 mg PO BID Fludrocortisone Acetate [Florinef] 0.1 mg PO BID Ipratropium/Albuterol Neb [Duoneb] 3 ml IH Q4HR PRN PRN Reason: sob/wheezing lamoTRIgine [Lamictal] 100 mg PO HS Lisinopril 2.5 mg PO DAILY Dexamethasone [Decadron] 4 mg PO BID PRN #45 tab PRN Reason: as directed Lidocaine/Prilocaine [Emla] 1 appl TP AD Metformin HCl [Glucophage Xr] 500 mg PO DAILY Potassium Chloride [K-Tab ER] 20 meq PO DAILY Tiotropium [Spiriva] 18 mcg IH DAILY Dexamethasone [Decadron] 6 mg PO DAILY clonazePAM [Clonazepam] 1 mg PO QID PRN 3 Days #3 PRN Reason: Anxiety HYDROcodone/Acet 7.5/325 mg [[place] 7.5-325 mg] 1 tab PO Q6H PRN 3 Days #3 tablet PRN Reason: Pain Budesonide/Formoterol 160/4.5 [Symbicort 160/4.5] 2 puff IH BID risperiDONE [Risperidone] 1 mg PO HS Cilostazol [Pletal] 100 mg PO BID Changed Furosemide [Lasix] 40 mg PO BID 5 Days #20 tablet Discontinued Prochlorperazine Maleate [Compazine] 10 mg PO Q6HR PRN PRN Reason: Nausea Sucralfate [Carafate] 1 gm PO QID Zolpidem [Ambien] 10 mg PO HS PRN PRN Reason: Sleep Home Medications: Budesonide/Formoterol 160/4.5 [Symbicort 160/4.5] 2 puff IH BID 12/14/18 [History] Cilostazol [Pletal] 100 mg PO BID 12/14/18 [History] risperiDONE [Risperidone] 1 mg PO HS 12/14/18 [History] Citalopram [CeleXA] 40 mg PO DAILY 12/15/18 [History] Clopidogrel [Plavix] 75 mg PO DAILY 12/15/18 [History] Doxepin [Sinequan] 50 mg PO HS 12/15/18 [History] Simvastatin [Zocor] 40 mg PO HS 12/15/18 [History] Apixaban [Eliquis] 5 mg PO BID 02/18/19 [History] Fludrocortisone Acetate [Florinef] 0.1 mg PO BID 03/04/19 [History] Ipratropium/Albuterol Neb [Duoneb] 3 ml IH Q4HR PRN 03/04/19 [History] Lisinopril 2.5 mg PO DAILY 03/04/19 [History] lamoTRIgine [Lamictal] 100 mg PO HS 03/04/19 [History] Dexamethasone [Decadron] 4 mg PO BID PRN #45 tab 03/11/19 [Rx] Dexamethasone [Decadron] 6 mg PO DAILY 03/23/19 [History] Lidocaine/Prilocaine [Emla] 1 appl TP AD 03/23/19 [History] Metformin HCl [Glucophage Xr] 500 mg PO DAILY 03/23/19 [History] Potassium Chloride [K-Tab ER] 20 meq PO DAILY 03/23/19 [History] Tiotropium [Spiriva] 18 mcg IH DAILY 03/23/19 [History] Amiodarone [Cordarone] 200 mg PO DAILY tablet 03/30/19 [Rx] Furosemide [Lasix] 40 mg PO BID 5 Days #20 tablet 03/30/19 [Rx] HYDROcodone/Acet 7.5/325 mg [[place] 7.5-325 mg] 1 tab PO Q6H PRN 3 Days #3 tablet 03/30/19 [Rx] Omeprazole [PriLOSEC] 20 mg PO DAILY 30 Days #30 cap 03/30/19 [Rx] clonazePAM [Clonazepam] 1 mg PO QID PRN 3 Days #3 03/30/19 [Rx] Allergies/Adverse Reactions: Allergy/AdvReac Type Severity Reaction Status Date / Time Penicillins Allergy See Verified 03/23/19 09:19 Comments Date of admission: 03/23/19 03:14 Primary care physician: Maisha Ruth CNP Consults: 03/22/19 20:03 Consult to Nutrition [CONS] Routine Comment: Consulting Provider: NUTRITION Reason for Dietary Consult: MST Score 03/22/19 20:15 Consult to Surgery [CONS] Routine Consulting Provider: Surgery [facility] Reason for Consult: Acute Cholecystitis Call Completed: Yes 03/23/19 12:07 Consult to Cardiology [CONS] Routine Comment: Consulting Provider: Cardiology [place] Reason for Consult: HFrEF, known CAD, severe sepsis with acute lonnie. for pre-op eval Call Completed: Yes 03/23/19 12:22 Consult to Palliative Care [CONS] Routine Comment: Consulting Provider: Palliative Care [place] Reason for Consult: History of metastatic lung cancer, HFrEF, o2-dependent COPD, admited for sepsis 2/2 acute lonnie. GOC discussion Call Completed: Yes 03/23/19 13:18 Consult to Critical Care [CONS] Stat Consulting Provider: [facility] [place] Reason for Consult: Sepsis with acute cholecystitis, plan for surgery on Debi rsday. Hx of metastatic lung CA, HFrEF, O2-dep COPD Call Completed: Yes 03/27/19 13:11 Consult to Occupational Therapy [CONS] Routine Comment: Evaluate, develop and implement POC Reason for Consult: improve mobility, discharge planning Does patient have active BEDREST order?: No Is patient medically & hemodynamically stable?: Yes Consult to Physical Therapy [CONS] Routine Comment: Evaluate, develop and implement POC Reason for Consult: improve mobility, discharge planning Does patient have active BEDREST order?: No Is patient medically & hemodynamically stable?: Yes Discharging clinician: Leann Gamboa - Constitutional Vitals: Temp Pulse Resp BP Pulse Ox 97.9 F 105 14 96/53 95 03/30/19 15:03 03/30/19 15:03 03/30/19 15:03 03/30/19 15:03 03/30/19 15:03 Exam: General: In no acute distress. Respiratory exam: Occasional scattered rhonchi. No accessory muscle use. No rales Cardiovascular exam: RRR, +S1, +S2. no murmur, gallop, rubs. GI/Abdominal exam: no abdominal tenderness, soft, no peritoneal signs, GILLIAN drain in RUQ Extremities exam: 2+ pedal edema, no calf tenderness Neurological exam: CN II-XII intact, AO X3, no focal deficits. - Patient Status Disposition: Transfer SNF Condition: Fair - Discharge Instructions Follow Up With: Cameron Kirby MD [Partnered Physician] - Maisha Ruth CNP [Primary Care Provider] - Additional Instructions: F/U in 2 weeks and maintain drain until F/U - Diet and Activity Activity: increase activity as tolerated
--- NOTE | 2019-03-30 17:31 | Physician Discharge Referral ---
ExtendedCare Referral Info Institutional Level of Care: Skilled - Diagnosis (1) Diabetes mellitus type 2 with complications Status: Chronic (2) Adrenal insufficiency Status: Acute (3) Squamous cell carcinoma of lung, stage IV Status: Chronic (4) Pulmonary embolism Status: Chronic (5) DVT prophylaxis Status: Acute (6) Acute cholecystitis Status: Acute (7) Sepsis Status: Acute (8) COPD (chronic obstructive pulmonary disease) Status: Chronic (9) HFrEF (heart failure with reduced ejection fraction) Status: Chronic (10) CAD (coronary artery disease) Status: Chronic (11) A-fib Status: Acute - Transfer Medications Prescriptions: Furosemide [Lasix] 40 mg PO BID 5 Days #20 tablet HYDROcodone/Acet 7.5/325 mg [[place] 7.5-325 mg] 1 tab PO Q6H PRN 3 Days #3 tablet PRN Reason: Pain Omeprazole [PriLOSEC] 20 mg PO DAILY 30 Days #30 cap Home Medications: Budesonide/Formoterol 160/4.5 [Symbicort 160/4.5] 2 puff IH BID 12/14/18 [History] Cilostazol [Pletal] 100 mg PO BID 12/14/18 [History] risperiDONE [Risperidone] 1 mg PO HS 12/14/18 [History] Citalopram [CeleXA] 40 mg PO DAILY 12/15/18 [History] Clopidogrel [Plavix] 75 mg PO DAILY 12/15/18 [History] Doxepin [Sinequan] 50 mg PO HS 12/15/18 [History] Simvastatin [Zocor] 40 mg PO HS 12/15/18 [History] Apixaban [Eliquis] 5 mg PO BID 02/18/19 [History] Fludrocortisone Acetate [Florinef] 0.1 mg PO BID 03/04/19 [History] Ipratropium/Albuterol Neb [Duoneb] 3 ml IH Q4HR PRN 03/04/19 [History] Lisinopril 2.5 mg PO DAILY 03/04/19 [History] lamoTRIgine [Lamictal] 100 mg PO HS 03/04/19 [History] Dexamethasone [Decadron] 4 mg PO BID PRN #45 tab 03/11/19 [Rx] Dexamethasone [Decadron] 6 mg PO DAILY 03/23/19 [History] Lidocaine/Prilocaine [Emla] 1 appl TP AD 03/23/19 [History] Metformin HCl [Glucophage Xr] 500 mg PO DAILY 03/23/19 [History] Potassium Chloride [K-Tab ER] 20 meq PO DAILY 03/23/19 [History] Tiotropium [Spiriva] 18 mcg IH DAILY 03/23/19 [History] Amiodarone [Cordarone] 200 mg PO DAILY tablet 03/30/19 [Rx] Furosemide [Lasix] 40 mg PO BID 5 Days #20 tablet 03/30/19 [Rx] HYDROcodone/Acet 7.5/325 mg [[place] 7.5-325 mg] 1 tab PO Q6H PRN 3 Days #3 tablet 03/30/19 [Rx] Omeprazole [PriLOSEC] 20 mg PO DAILY 30 Days #30 cap 03/30/19 [Rx] clonazePAM [Clonazepam] 1 mg PO QID PRN 3 Days #3 03/30/19 [Rx] Allergies/Adverse Reactions: Allergy/AdvReac Type Severity Reaction Status Date / Time Penicillins Allergy See Verified 03/23/19 09:19 Comments - Respiratory Orders Smoking Cessation: Smoking cessation has been advised. For more information, call the [place] Tobacco Quit Line at 2-876-SMXMNOW. CERTIFICATION: I certify that the transfer of the above named patient to an Extended Care Facility is necessary for the continuing treatment of the diagnosis listed. The above information is true and accurate reflection of patient's current condition. Confidential - Redisclosure prohibited without a patient's written consent.
[2019-03-30] MEDS: risperiDONE 1 MG TABLET PO SCH (20:43)
[2019-03-30] MEDS: lamoTRIgine 100 MG TABLET PO SCH (20:43)
[2019-03-30] MEDS: Insulin DETEMIR 100 UNIT/ML X5UNITS SQ SCH (20:44)
[2019-03-31] MEDS: Insulin LISPRO 300 UNITS/3 ML VIAL SQ SCH ×4 (08:44→22:26)
[2019-03-31] MEDS: *HR* Amiodarone 200 MG TABLET PO SCH (09:42)
[2019-03-31] MEDS: Apixaban 5 MG TABLET PO SCH ×2 (09:43→22:25)
[2019-03-31] MEDS: Furosemide 20 MG/2 ML VIAL IVP SCH ×2 (09:44→16:46)
[2019-03-31] MEDS: Budesonide/Formoterol 160/4.5 1 PUFF INH IH SCH ×2 (10:28→21:46)
[2019-03-31] MEDS: Ipratropium/Albuterol Neb 3 ML IH SCH ×2 (10:28→21:46)
[2019-03-31] MEDS: clonazePAM 1 MG TABLET PO PRN ×2 (11:30→22:33)
--- NOTE | 2019-03-31 13:40 | Internal Med Progress Note ---
Hospitalist Progress Note - Encounter Date of Encounter: 03/31/19 Time of Encounter: 09:00 - Subjective Interval History: Patient laying on bed comfortably. Denies nausea, vomiting, abdominal pain. Tolerated regular diet well. Patient was discharged already, waiting for placement at this point. - Exam Vitals: Temp Pulse Resp BP Pulse Ox 97.6 F 110 16 115/79 97 03/31/19 10:30 03/31/19 10:30 03/31/19 10:30 03/31/19 10:30 03/31/19 10:30 Exam: General: In no acute distress. Respiratory exam: Occasional scattered rhonchi. No accessory muscle use. No rales Cardiovascular exam: RRR, +S1, +S2. no murmur, gallop, rubs. GI/Abdominal exam: no abdominal tenderness, soft, no peritoneal signs, GILLIAN drain in RUQ Extremities exam: 2+ pedal edema, no calf tenderness Neurological exam: CN II-XII intact, AO X3, no focal deficits. - Assessment and Plan (1) Diabetes mellitus type 2 with complications Current Visit: Yes Status: Chronic Assessment and Plan: A1c 6.8 in August 2018 Metformin on hold Low-dose sliding scale coverage (2) Adrenal insufficiency Current Visit: Yes Status: Acute Assessment and Plan: Continue home medication by mouth flurocortisone and dexamethasone (3) Squamous cell carcinoma of lung, stage IV Current Visit: Yes Status: Chronic Assessment and Plan: Continue outpatient follow-up (4) Pulmonary embolism Current Visit: Yes Status: Chronic Assessment and Plan: Diagnosis of December 2018, had been on Eliquis since then Repeat CTA in January did not show any evidence of PE Had IVC filter placed. Cont Eliquis, (5) DVT prophylaxis Current Visit: Yes Status: Acute Assessment and Plan: On Eliquis (6) A-fib Current Visit: No Status: Acute Assessment and Plan: On Eliquis for stroke prophylaxis. Heart rate is on high side, currently sinus rhythm. On po amiodarone. (7) Acute cholecystitis Current Visit: Yes Status: Acute Assessment and Plan: appreciate surgery input. S/P LC (8) Sepsis Current Visit: Yes Status: Acute Assessment and Plan: Due to cholecystitis. Resolved now after surgery and antibiotic use. (9) COPD (chronic obstructive pulmonary disease) Current Visit: Yes Status: Chronic Assessment and Plan: Not in exacerbation resume home inhalers and duoneb PRN (10) HFrEF (heart failure with reduced ejection fraction) Current Visit: Yes Status: Chronic Assessment and Plan: Relatively recent diagnosis of heart failure with reduced EF, 30-35% on echo 01/2019. Declined C at that time Cont low rate ACEI as BP tolerate. Not on BB possibly due to low BP Still has mild bilateral swelling. Continue Lasix. (11) CAD (coronary artery disease) Current Visit: Yes Status: Chronic Assessment and Plan: Continue home medications. Patient has no chest pain. DVT Prophylaxis: On Eliquis. - Time Spent with Patient Total time spent is greater than 50% in coordination of care (as documented) at patient's floor/unit and/or counseling patient: 30 min 25 - 35 minutes Plan of Care Discussed with: patient Internal Medicine: Result - Labs CBC & Chem 7: 03/30/19 04:40 03/30/19 04:40 - ABG Interpretation ABG results: ABG ABG pH 7.40 pH Units (7.32-7.45) 03/23/19 15:59 ABG pCO2 55 mmHg (35-45) H 03/23/19 15:59 ABG pO2 74 mmHg (85-104) L 03/23/19 15:59 ABG O2 Saturation 94 % (95-98) L 03/23/19 15:59 PT/INR, D-dimer PT 12.3 Seconds (9.4-12.1) H 03/25/19 18:45 Consult Discharge Plan - Plan Additional Instructions: F/U in 2 weeks and maintain drain until F/U Referrals: Cameron Kirby MD [Partnered Physician] - Maisha Ruth CNP [Primary Care Provider] - Prescriptions: RX: Furosemide [Lasix] 40 mg PO BID 5 Days #20 tablet RX: HYDROcodone/Acet 7.5/325 mg [[place] 7.5-325 mg] 1 tab PO Q6H PRN 3 Days #3 tablet PRN Reason: Pain RX: Omeprazole [PriLOSEC] 20 mg PO DAILY 30 Days #30 cap (1) Diabetes mellitus type 2 with complications Qualifiers: Diabetes mellitus manager long term care insulin use: without manager long term care use Qualified Code(s): E11.8 - Type 2 diabetes mellitus with unspecified complications (3) Squamous cell carcinoma of lung, stage IV Qualifiers: Laterality: unspecified laterality Qualified Code(s): C34.90 - Malignant neoplasm of unspecified part of unspecified bronchus or lung (4) Pulmonary embolism Qualifiers: Pulmonary embolism type: other Chronicity: chronic Acute cor pulmonale presence: without acute cor pulmonale Qualified Code(s): I27.82 - Chronic pulmonary embolism (6) A-fib Qualifiers: Atrial fibrillation type: paroxysmal Qualified Code(s): I48.0 - Paroxysmal atrial fibrillation (8) Sepsis Qualifiers: Sepsis type: sepsis due to unspecified organism Qualified Code(s): A41.9 - Sepsis, unspecified organism (9) COPD (chronic obstructive pulmonary disease) Qualifiers: Emphysema type: unspecified Qualified Code(s): J43.9 - Emphysema, unspecified (10) HFrEF (heart failure with reduced ejection fraction) Qualifiers: Heart failure chronicity: chronic Qualified Code(s): I50.22 - Chronic systolic (congestive) heart failure (11) CAD (coronary artery disease) Qualifiers: Coronary Disease-Associated Artery/Lesion type: [place] artery [place] vs. transplanted heart: unspecified whether [place] or transplanted heart Associated angina: angina presence unspecified Qualified Code(s): I25.10 - Atherosclerotic heart disease of [place] coronary artery without angina pectoris
[2019-03-31] MEDS: risperiDONE 1 MG TABLET PO SCH (22:26)
[2019-03-31] MEDS: lamoTRIgine 100 MG TABLET PO SCH (22:26)
[2019-03-31] MEDS: Insulin DETEMIR 100 UNIT/ML X5UNITS SQ SCH (22:28)
[2019-03-31] MEDS: *HR* OxyCODONE/APAP 10/325 TABLET PO PRN (22:33)
[2019-04-01 04:40] LABS: BUN/Creatinine Ratio 33 (6-26); Blood Urea Nitrogen 17 mg/dL (8-23); Calcium 7.9 mg/dL (8.6-10.3); Carbon Dioxide 41 mEq/L (23-29); Chloride 95 mEq/L (98-107); Glucose 237 mg/dL (70-105); Osmolality,Calculated 301 (280-300); Potassium 2.5 mEq/L (3.5-5.1); Sodium 141 mEq/L (136-145); eGFR For Non-African Americans > 60 (> 60)
[2019-04-01] MEDS ORDERED: Potassium Chloride 40 MEQ, Lidocaine 1% 2 ML in D5% in Water 500 ML IVPB ONE (04:46)
[2019-04-01 05:47] LABS: ABG Base Excess 20 mEq/L (-2 to 3); ABG HCO3 46 mEq/L (21-27); ABG Oxygen Saturation 97 % (95-98); ABG PCO2 57 mmHg (35-45); ABG PH 7.51 pH Units (7.32-7.45); ABG PO2 82 mmHg (85-104); ABG TCO2 47 mEq/L (20-26)
[2019-04-01] MEDS: *HR* OxyCODONE/APAP 10/325 TABLET PO PRN (07:23)
[2019-04-01] MEDS: Insulin LISPRO 300 UNITS/3 ML VIAL SQ SCH ×4 (07:23→22:26)
[2019-04-01] MEDS: Ipratropium/Albuterol Neb 3 ML IH SCH ×2 (07:52→20:42)
[2019-04-01] MEDS: Budesonide/Formoterol 160/4.5 1 PUFF INH IH SCH ×2 (07:52→20:42)
[2019-04-01 08:42] LABS: Magnesium 1.4 mg/dL (1.6-2.6)
[2019-04-01] MEDS: Furosemide 20 MG TABLET PO SCH (08:51)
[2019-04-01] MEDS: Apixaban 5 MG TABLET PO SCH ×2 (08:51→20:16)
[2019-04-01] MEDS: *HR* Amiodarone 200 MG TABLET PO SCH (08:51)
[2019-04-01] MEDS ORDERED: Furosemide 20 MG/2 ML VIAL IVP SCH (09:00)
--- NOTE | 2019-04-01 14:10 | Internal Med Progress Note ---
Hospitalist Progress Note - Encounter Date of Encounter: 04/01/19 Time of Encounter: 09:00 - Subjective Interval History: Patient denies abdominal pain. Denies shortness of breath. Still has bilateral leg swelling. Patient has low potassium and magnesium today. Will hold discharge at this point. Give potassium and magnesium supplements. - Exam Vitals: Temp Pulse Resp BP Pulse Ox 97.6 F 90 15 86/57 96 04/01/19 13:59 04/01/19 13:59 04/01/19 13:59 04/01/19 13:59 04/01/19 13:59 Exam: General: In no acute distress. Respiratory exam: Occasional scattered rhonchi. No accessory muscle use. No rales Cardiovascular exam: RRR, +S1, +S2. no murmur, gallop, rubs. GI/Abdominal exam: no abdominal tenderness, soft, no peritoneal signs, GILLIAN drain in RUQ Extremities exam: 2+ pedal edema, no calf tenderness Neurological exam: CN II-XII intact, AO X3, no focal deficits. - Assessment and Plan (1) Diabetes mellitus type 2 with complications Current Visit: Yes Status: Chronic Assessment and Plan: A1c 6.8 in August 2018 Metformin on hold basal and medium-dose sliding scale coverage (2) Adrenal insufficiency Current Visit: Yes Status: Acute Assessment and Plan: Continue home medication by mouth flurocortisone and dexamethasone (3) Squamous cell carcinoma of lung, stage IV Current Visit: Yes Status: Chronic Assessment and Plan: Continue outpatient follow-up (4) Pulmonary embolism Current Visit: Yes Status: Chronic Assessment and Plan: Diagnosis of December 2018, had been on Eliquis since then Repeat CTA in January did not show any evidence of PE Had IVC filter placed. Cont Eliquis, (5) DVT prophylaxis Current Visit: Yes Status: Acute Assessment and Plan: On Eliquis (6) A-fib Current Visit: No Status: Acute Assessment and Plan: On Eliquis for stroke prophylaxis. Heart rate is on high side, currently sinus rhythm. On po amiodarone. (7) Acute cholecystitis Current Visit: Yes Status: Acute Assessment and Plan: appreciate surgery input. S/P LC (8) Sepsis Current Visit: Yes Status: Acute Assessment and Plan: Due to cholecystitis. Resolved now after surgery and antibiotic use. (9) COPD (chronic obstructive pulmonary disease) Current Visit: Yes Status: Chronic Assessment and Plan: Not in exacerbation resume home inhalers and duoneb PRN (10) HFrEF (heart failure with reduced ejection fraction) Current Visit: Yes Status: Chronic Assessment and Plan: Relatively recent diagnosis of heart failure with reduced EF, 30-35% on echo 01/2019. Declined LHC at that time Cont low rate ACEI as BP tolerate. Not on BB possibly due to low BP Still has mild bilateral swelling. Continue Lasix, switch to po as pt has metabolic alkalosis and hypokalemia. (11) CAD (coronary artery disease) Current Visit: Yes Status: Chronic Assessment and Plan: Continue home medications. Patient has no chest pain. (12) Hypomagnesemia Current Visit: Yes Status: Acute Assessment and Plan: We will give supplement (13) Hypokalemia Current Visit: Yes Status: Acute Assessment and Plan: Continue give by mouth and IV supplement and closely monitor potassium level. DVT Prophylaxis: On Eliquis - Time Spent with Patient Total time spent is greater than 50% in coordination of care (as documented) at patient's floor/unit and/or counseling patient: 30 minutes 25 - 35 minutes Plan of Care Discussed with: patient Internal Medicine: Result - Labs CBC & Chem 7: 03/30/19 04:40 04/01/19 03:55 Labs: BMP 04/01/19 03:55 Sodium 141 Potassium 2.5 L* Chloride 95 L Carbon Dioxide 41 H* BUN 17 Creatinine 0.51 L Glucose 237 H Calcium 7.9 L - ABG Interpretation ABG results: ABG ABG pH 7.51 pH Units (7.32-7.45) H 04/01/19 05:43 ABG pCO2 57 mmHg (35-45) H 04/01/19 05:43 ABG pO2 82 mmHg (85-104) L 04/01/19 05:43 ABG O2 Saturation 97 % (95-98) 04/01/19 05:43 PT/INR, D-dimer PT 12.3 Seconds (9.4-12.1) H 03/25/19 18:45 Consult Discharge Plan - Plan Additional Instructions: F/U in 2 weeks and maintain drain until F/U Referrals: Cameron Kirby MD [Partnered Physician] - Maisha Ruth CNP [Primary Care Provider] - Prescriptions: Furosemide [Lasix] 40 mg PO BID 5 Days #20 tablet HYDROcodone/Acet 7.5/325 mg [[place] 7.5-325 mg] 1 tab PO Q6H PRN 3 Days #3 tablet PRN Reason: Pain Omeprazole [PriLOSEC] 20 mg PO DAILY 30 Days #30 cap (1) Diabetes mellitus type 2 with complications Qualifiers: Diabetes mellitus meterman insulin use: without senior living use Qualified Code(s): E11.8 - Type 2 diabetes mellitus with unspecified complications (3) Squamous cell carcinoma of lung, stage IV Qualifiers: Laterality: unspecified laterality Qualified Code(s): C34.90 - Malignant neoplasm of unspecified part of unspecified bronchus or lung (4) Pulmonary embolism Qualifiers: Pulmonary embolism type: other Chronicity: chronic Acute cor pulmonale presence: without acute cor pulmonale Qualified Code(s): I27.82 - Chronic pulmonary embolism (6) A-fib Qualifiers: Atrial fibrillation type: paroxysmal Qualified Code(s): I48.0 - Paroxysmal atrial fibrillation (8) Sepsis Qualifiers: Sepsis type: sepsis due to unspecified organism Qualified Code(s): A41.9 - Sepsis, unspecified organism (9) COPD (chronic obstructive pulmonary disease) Qualifiers: Emphysema type: unspecified Qualified Code(s): J43.9 - Emphysema, unspecified (10) HFrEF (heart failure with reduced ejection fraction) Qualifiers: Heart failure chronicity: chronic Qualified Code(s): I50.22 - Chronic systolic (congestive) heart failure (11) CAD (coronary artery disease) Qualifiers: Coronary Disease-Associated Artery/Lesion type: [place] artery [place] vs. transplanted heart: unspecified whether [place] or transplanted heart Associated angina: angina presence unspecified Qualified Code(s): I25.10 - Atherosclerotic heart disease of [place] coronary artery without angina pectoris
[2019-04-01] MEDS: lamoTRIgine 100 MG TABLET PO SCH (20:16)
[2019-04-01] MEDS: clonazePAM 1 MG TABLET PO PRN (20:16)
[2019-04-01] MEDS: risperiDONE 1 MG TABLET PO SCH (20:16)
[2019-04-01] MEDS: Insulin DETEMIR 100 UNIT/ML X5UNITS SQ SCH (22:27)
[2019-04-02 06:12] LABS: Basophils % 0.1 %; Eosinophils % 0.1 %; Hematocrit 29.4 % (35.3-44.9); Hemoglobin 9.4 g/dL (11.5-15.4); Immature Granulocytes % 1.8 % (0-4); Lymphocytes # 0.9 K/mcL (0.6-4.6); Mean Platelet Volume 9.5 fL (9.4-12.4); Monocytes # 0.4 K/mcL (0.0-1.3); Monocytes % 6.3 %; Neutrophils # 5.2 K/mcL (1.6-8.9); Platelet Count 173 K/mcL (140-400); Red Blood Count 2.94 M/mcL (3.82-4.97); Red Cell Distribution Width 15.9 % (11.5-14.5); Segmented Neutrophils % 78.7 %
[2019-04-02 06:39] LABS: BUN/Creatinine Ratio 35 (6-26); Blood Urea Nitrogen 19 mg/dL (8-23); Calcium 8.9 mg/dL (8.6-10.3); Carbon Dioxide 41 mEq/L (23-29); Chloride 97 mEq/L (98-107); Glucose 127 mg/dL (70-105); Magnesium 1.8 mg/dL (1.6-2.6); Osmolality,Calculated 300 (280-300); Potassium 3.4 mEq/L (3.5-5.1); Sodium 143 mEq/L (136-145); eGFR For Non-African Americans > 60 (> 60)
[2019-04-02] MEDS ORDERED: Potassium Chloride 40 MEQ, Lidocaine 1% 2 ML in D5% in Water 500 ML IVPB ONE (06:50)
[2019-04-02] MEDS: Ipratropium/Albuterol Neb 3 ML IH SCH ×2 (07:58→21:17)
[2019-04-02] MEDS: Budesonide/Formoterol 160/4.5 1 PUFF INH IH SCH ×2 (07:58→21:17)
[2019-04-02 08:00] LABS: ABG Base Excess 16 mEq/L (-2 to 3); ABG HCO3 41 mEq/L (21-27); ABG Oxygen Saturation 94 % (95-98); ABG PCO2 55 mmHg (35-45); ABG PH 7.48 pH Units (7.32-7.45); ABG PO2 70 mmHg (85-104); ABG TCO2 43 mEq/L (20-26)
[2019-04-02] MEDS: *HR* Amiodarone 200 MG TABLET PO SCH (08:20)
[2019-04-02] MEDS: Furosemide 20 MG TABLET PO SCH (08:20)
[2019-04-02] MEDS: Apixaban 5 MG TABLET PO SCH ×2 (08:21→22:31)
[2019-04-02] MEDS: Insulin LISPRO 300 UNITS/3 ML VIAL SQ SCH ×4 (08:24→22:40)
[2019-04-02] MEDS: clonazePAM 1 MG TABLET PO PRN ×2 (12:16→22:31)
--- NOTE | 2019-04-02 12:39 | Internal Med Progress Note ---
Hospitalist Progress Note - Encounter Date of Encounter: 04/02/19 Time of Encounter: 09:00 - Subjective Interval History: Patient denies abdominal pain, nausea, vomiting, shortness of breath. Still having leg swelling. Complain of bilateral leg numbness. No fever. Vital signs stable. - Exam Vitals: Temp Pulse Resp BP Pulse Ox 98.2 F 72 16 103/70 93 04/02/19 10:53 04/02/19 10:53 04/02/19 10:53 04/02/19 10:53 04/02/19 10:53 Exam: General: In no acute distress. Respiratory exam: Occasional scattered rhonchi. No accessory muscle use. No rales Cardiovascular exam: RRR, +S1, +S2. no murmur, gallop, rubs. GI/Abdominal exam: no abdominal tenderness, soft, no peritoneal signs, GILLIAN drain in RUQ Extremities exam: 2+ pedal edema, no calf tenderness Neurological exam: CN II-XII intact, AO X3, no focal deficits. - Assessment and Plan (1) HFrEF (heart failure with reduced ejection fraction) Current Visit: Yes Status: Chronic Assessment and Plan: Relatively recent diagnosis of heart failure with reduced EF, 30-35% on echo 01/2019. Declined LHC at that time Cont low rate ACEI as BP tolerate. Not on BB possibly due to low BP Still has mild bilateral swelling. Continue Lasix, switch to po as pt has metabolic alkalosis and hypokalemia. Elevated bicarbonate level likely is because of Lasix use. Improved after switch IV Lasix to by mouth. (2) Diabetes mellitus type 2 with complications Current Visit: Yes Status: Chronic Assessment and Plan: A1c 6.8 in August 2018 Metformin on hold basal and medium-dose sliding scale coverage (3) Adrenal insufficiency Current Visit: Yes Status: Acute Assessment and Plan: Continue home medication by mouth flurocortisone and dexamethasone (4) Squamous cell carcinoma of lung, stage IV Current Visit: Yes Status: Chronic Assessment and Plan: Continue outpatient follow-up (5) Pulmonary embolism Current Visit: Yes Status: Chronic Assessment and Plan: Diagnosis of December 2018, had been on Eliquis since then Repeat CTA in January did not show any evidence of PE Had IVC filter placed. Cont Eliquis, (6) DVT prophylaxis Current Visit: Yes Status: Acute Assessment and Plan: On Eliquis (7) A-fib Current Visit: No Status: Acute Assessment and Plan: On Eliquis for stroke prophylaxis. Heart rate is on high side, currently sinus rhythm. On po amiodarone. (8) Acute cholecystitis Current Visit: Yes Status: Acute Assessment and Plan: appreciate surgery input. S/P LC, recover well (9) Sepsis Current Visit: Yes Status: Acute Assessment and Plan: Due to cholecystitis. Resolved now after surgery and antibiotic use. (10) COPD (chronic obstructive pulmonary disease) Current Visit: Yes Status: Chronic Assessment and Plan: Not in exacerbation resume home inhalers and duoneb PRN (11) CAD (coronary artery disease) Current Visit: Yes Status: Chronic Assessment and Plan: Continue home medications. Patient has no chest pain. (12) Hypomagnesemia Current Visit: Yes Status: Acute Assessment and Plan: Improved after supplement. Magnesium 1.8 (13) Hypokalemia Current Visit: Yes Status: Acute Assessment and Plan: Improved after supplement. Potassium 3.4, will give another by mouth dose 20 MEq. DVT Prophylaxis: On Eliquis. - Time Spent with Patient Total time spent is greater than 50% in coordination of care (as documented) at patient's floor/unit and/or counseling patient: 30 minutes 25 - 35 minutes Plan of Care Discussed with: patient Internal Medicine: Result - Labs CBC & Chem 7: 04/02/19 05:45 04/02/19 05:45 Labs: Short CBC 04/02/19 Range/Units 05:45 WBC 6.7 (4.3-11.1) K/mcL Hgb 9.4 L (11.5-15.4) g/dL Hct 29.4 L (35.3-44.9) % Plt Count 173 (140-400) K/mcL Neutrophils # 5.2 (1.6-8.9) K/mcL BMP 04/02/19 05:45 Sodium 143 Potassium 3.4 L Chloride 97 L Carbon Dioxide 41 H* BUN 19 Creatinine 0.55 L Glucose 127 H Calcium 8.9 - ABG Interpretation ABG results: ABG ABG pH 7.48 pH Units (7.32-7.45) H 04/02/19 07:57 ABG pCO2 55 mmHg (35-45) H 04/02/19 07:57 ABG pO2 70 mmHg (85-104) L 04/02/19 07:57 ABG O2 Saturation 94 % (95-98) L 04/02/19 07:57 PT/INR, D-dimer PT 12.3 Seconds (9.4-12.1) H 03/25/19 18:45 Consult Discharge Plan - Plan Additional Instructions: F/U in 2 weeks and maintain drain until F/U Referrals: Cameron Kirby MD [Partnered Physician] - Maisha Ruth CNP [Primary Care Provider] - Prescriptions: Furosemide [Lasix] 40 mg PO BID 5 Days #20 tablet Omeprazole [PriLOSEC] 20 mg PO DAILY 30 Days #30 cap (1) HFrEF (heart failure with reduced ejection fraction) Qualifiers: Heart failure chronicity: chronic Qualified Code(s): I50.22 - Chronic systolic (congestive) heart failure (2) Diabetes mellitus type 2 with complications Qualifiers: Diabetes mellitus long-term insulin use: without intermediate designer use Qualified Code(s): E11.8 - Type 2 diabetes mellitus with unspecified complications (4) Squamous cell carcinoma of lung, stage IV Qualifiers: Laterality: unspecified laterality Qualified Code(s): C34.90 - Malignant neoplasm of unspecified part of unspecified bronchus or lung (5) Pulmonary embolism Qualifiers: Pulmonary embolism type: other Chronicity: chronic Acute cor pulmonale presence: without acute cor pulmonale Qualified Code(s): I27.82 - Chronic pulmonary embolism (7) A-fib Qualifiers: Atrial fibrillation type: paroxysmal Qualified Code(s): I48.0 - Paroxysmal atrial fibrillation (9) Sepsis Qualifiers: Sepsis type: sepsis due to unspecified organism Qualified Code(s): A41.9 - Sepsis, unspecified organism (10) COPD (chronic obstructive pulmonary disease) Qualifiers: Emphysema type: unspecified Qualified Code(s): J43.9 - Emphysema, unspecified (11) CAD (coronary artery disease) Qualifiers: Coronary Disease-Associated Artery/Lesion type: [place] artery [place] vs. transplanted heart: unspecified whether [place] or transplanted heart Associated angina: angina presence unspecified Qualified Code(s): I25.10 - Atherosclerotic heart disease of [place] coronary artery without angina pectoris
[2019-04-02] MEDS: *HR* OxyCODONE/APAP 10/325 TABLET PO PRN (13:33)
[2019-04-02] MEDS: lamoTRIgine 100 MG TABLET PO SCH (22:31)
[2019-04-02] MEDS: risperiDONE 1 MG TABLET PO SCH (22:32)
[2019-04-02] MEDS: Insulin DETEMIR 100 UNIT/ML X5UNITS SQ SCH (22:40)
[2019-04-03 06:41] LABS: BUN/Creatinine Ratio 37 (6-26); Blood Urea Nitrogen 17 mg/dL (8-23); Calcium 8.8 mg/dL (8.6-10.3); Carbon Dioxide 40 mEq/L (23-29); Chloride 97 mEq/L (98-107); Glucose 176 mg/dL (70-105); Magnesium 1.7 mg/dL (1.6-2.6); Osmolality,Calculated 296 (280-300); Potassium 3.5 mEq/L (3.5-5.1); Sodium 140 mEq/L (136-145); eGFR For Non-African Americans > 60 (> 60)
[2019-04-03] MEDS: Insulin LISPRO 300 UNITS/3 ML VIAL SQ SCH ×4 (07:45→21:05)
[2019-04-03] MEDS: *HR* Amiodarone 200 MG TABLET PO SCH (09:48)
[2019-04-03] MEDS: Apixaban 5 MG TABLET PO SCH ×2 (09:48→21:03)
[2019-04-03] MEDS: Furosemide 20 MG TABLET PO SCH (09:48)
[2019-04-03] MEDS: *HR* OxyCODONE/APAP 10/325 TABLET PO PRN (10:25)
[2019-04-03] MEDS: clonazePAM 1 MG TABLET PO PRN (10:25)
[2019-04-03] MEDS: Budesonide/Formoterol 160/4.5 1 PUFF INH IH SCH ×2 (10:44→19:44)
[2019-04-03] MEDS: Ipratropium/Albuterol Neb 3 ML IH SCH ×2 (10:44→19:43)
--- NOTE | 2019-04-03 11:28 | Internal Med Progress Note ---
Hospitalist Progress Note - Encounter Date of Encounter: 04/03/19 Time of Encounter: 09:00 - Subjective Interval History: Patient denies shortness of breath. Has no abdominal pain, nausea, or vomiting. GILLIAN drain in place with minimal yellowish drainage. Still complaining of bilateral leg swelling and numbness. Explained to patient that her systolic CHF and low albumin level may contribute to bilateral leg swelling. She cannot not tolerate large dose Lasix, which caused hypokalemia and metabolic alkalosis. As patient has no shortness of breath, will continue her by mouth home dose Lasix. Encouraged by mouth intake. And elevate leg to prevent swelling. - Exam Vitals: Temp Pulse Resp BP Pulse Ox 97.9 F 101 20 156/96 93 04/03/19 07:03 04/03/19 07:03 04/03/19 07:03 04/03/19 07:03 04/03/19 07:03 Exam: General: In no acute distress. Respiratory exam: Occasional scattered rhonchi. No accessory muscle use. No rales Cardiovascular exam: RRR, +S1, +S2. no murmur, gallop, rubs. GI/Abdominal exam: no abdominal tenderness, soft, no peritoneal signs, GILLIAN drain in RUQ Extremities exam: 2+ pedal edema, no calf tenderness Neurological exam: CN II-XII intact, AO X3, no focal deficits. - Assessment and Plan (1) HFrEF (heart failure with reduced ejection fraction) Current Visit: Yes Status: Chronic Assessment and Plan: Relatively recent diagnosis of heart failure with reduced EF, 30-35% on echo 01/2019. Declined C at that time Cont low rate ACEI as BP tolerate. Not on BB due to low BP Still has mild bilateral swelling. Continue Lasix, switch to po home dose as pt has metabolic alkalosis and hypokalemia. Elevated bicarbonate level likely is because of Lasix use. Improved after switch IV Lasix to by mouth. (2) Diabetes mellitus type 2 with complications Current Visit: Yes Status: Chronic Assessment and Plan: A1c 6.8 in August 2018 Metformin on hold basal and medium-dose sliding scale coverage (3) Adrenal insufficiency Current Visit: Yes Status: Acute Assessment and Plan: Continue home medication by mouth flurocortisone and dexamethasone (4) Squamous cell carcinoma of lung, stage IV Current Visit: Yes Status: Chronic Assessment and Plan: Continue outpatient follow-up (5) Pulmonary embolism Current Visit: Yes Status: Chronic Assessment and Plan: Diagnosis of December 2018, had been on Eliquis since then Repeat CTA in January did not show any evidence of PE Had IVC filter placed. Cont Eliquis, (6) DVT prophylaxis Current Visit: Yes Status: Acute Assessment and Plan: On Eliquis (7) A-fib Current Visit: No Status: Acute Assessment and Plan: On Eliquis for stroke prophylaxis. Heart rate is on high side, currently sinus rhythm. On po amiodarone. (8) Acute cholecystitis Current Visit: Yes Status: Acute Assessment and Plan: appreciate surgery input. S/P LC, recover well at this point (9) Sepsis Current Visit: Yes Status: Acute Assessment and Plan: Due to cholecystitis. Resolved now after surgery and antibiotic use. (10) COPD (chronic obstructive pulmonary disease) Current Visit: Yes Status: Chronic Assessment and Plan: Not in exacerbation resume home inhalers and duoneb PRN (11) CAD (coronary artery disease) Current Visit: Yes Status: Chronic Assessment and Plan: Continue home medications. Patient has no chest pain. (12) Hypomagnesemia Current Visit: Yes Status: Acute Assessment and Plan: Improved after supplement. (13) Hypokalemia Current Visit: Yes Status: Acute Assessment and Plan: Improved after supplement. DVT Prophylaxis: On Eliquis. - Time Spent with Patient Total time spent is greater than 50% in coordination of care (as documented) at patient's floor/unit and/or counseling patient: 25 - 35 minutes Plan of Care Discussed with: patient Internal Medicine: Result - Labs CBC & Chem 7: 04/02/19 05:45 04/03/19 05:58 Labs: BMP 04/03/19 05:58 Sodium 140 Potassium 3.5 Chloride 97 L Carbon Dioxide 40 H* BUN 17 Creatinine 0.46 L Glucose 176 H Calcium 8.8 - ABG Interpretation ABG results: ABG ABG pH 7.48 pH Units (7.32-7.45) H 04/02/19 07:57 ABG pCO2 55 mmHg (35-45) H 04/02/19 07:57 ABG pO2 70 mmHg (85-104) L 04/02/19 07:57 ABG O2 Saturation 94 % (95-98) L 04/02/19 07:57 PT/INR, D-dimer PT 12.3 Seconds (9.4-12.1) H 03/25/19 18:45 Consult Discharge Plan - Plan Additional Instructions: F/U in 2 weeks and maintain drain until F/U Referrals: Cameron Kirby MD [Partnered Physician] - Maisha Ruth CNP [Primary Care Provider] - Prescriptions: Furosemide [Lasix] 40 mg PO BID 5 Days #20 tablet Omeprazole [PriLOSEC] 20 mg PO DAILY 30 Days #30 cap (1) HFrEF (heart failure with reduced ejection fraction) Qualifiers: Heart failure chronicity: chronic Qualified Code(s): I50.22 - Chronic systolic (congestive) heart failure (2) Diabetes mellitus type 2 with complications Qualifiers: Diabetes mellitus senior living insulin use: without terminal make up operator use Qualified Code(s): E11.8 - Type 2 diabetes mellitus with unspecified complications (4) Squamous cell carcinoma of lung, stage IV Qualifiers: Laterality: unspecified laterality Qualified Code(s): C34.90 - Malignant neoplasm of unspecified part of unspecified bronchus or lung (5) Pulmonary embolism Qualifiers: Pulmonary embolism type: other Chronicity: chronic Acute cor pulmonale presence: without acute cor pulmonale Qualified Code(s): I27.82 - Chronic pulmonary embolism (7) A-fib Qualifiers: Atrial fibrillation type: paroxysmal Qualified Code(s): I48.0 - Paroxysmal atrial fibrillation (9) Sepsis Qualifiers: Sepsis type: sepsis due to unspecified organism Qualified Code(s): A41.9 - Sepsis, unspecified organism (10) COPD (chronic obstructive pulmonary disease) Qualifiers: Emphysema type: unspecified Qualified Code(s): J43.9 - Emphysema, unspecified (11) CAD (coronary artery disease) Qualifiers: Coronary Disease-Associated Artery/Lesion type: [place] artery [place] vs. transplanted heart: unspecified whether [place] or transplanted heart Associated angina: angina presence unspecified Qualified Code(s): I25.10 - Atherosclerotic heart disease of [place] coronary artery without angina pectoris
[2019-04-03] MEDS: risperiDONE 1 MG TABLET PO SCH (21:04)
[2019-04-03] MEDS: lamoTRIgine 100 MG TABLET PO SCH (21:04)
[2019-04-03] MEDS: Insulin DETEMIR 100 UNIT/ML X5UNITS SQ SCH (21:45)
[2019-04-04 05:49] LABS: Alanine Aminotransferase 14 Units/L (7-52); Albumin 2.9 g/dL (3.5-5.7); Albumin/Globulin Ratio 1.7 (1.1-2.2); Alkaline Phosphatase 72 Units/L (34-104); Aspartate Amino Transferase 9 Units/L (13-39); BUN/Creatinine Ratio 41 (6-26); Bilirubin,Total 0.3 mg/dL (0.3-1.0); Blood Urea Nitrogen 21 mg/dL (8-23); Calcium 8.9 mg/dL (8.6-10.3); Carbon Dioxide 36 mEq/L (23-29); Chloride 97 mEq/L (98-107); Globulin 1.7 g/dL (2.4-3.5); Glucose 253 mg/dL (70-105); Osmolality,Calculated 302 (280-300); Potassium 3.5 mEq/L (3.5-5.1); Sodium 140 mEq/L (136-145); Total Protein 4.6 g/dL (6.4-8.9); eGFR For Non-African Americans > 60 (> 60)
[2019-04-04] MEDS: Budesonide/Formoterol 160/4.5 1 PUFF INH IH SCH ×2 (07:22→19:51)
[2019-04-04] MEDS: Ipratropium/Albuterol Neb 3 ML IH SCH ×2 (07:22→19:52)
[2019-04-04] MEDS: Insulin LISPRO 300 UNITS/3 ML VIAL SQ SCH ×4 (08:24→19:55)
[2019-04-04] MEDS: *HR* Amiodarone 200 MG TABLET PO SCH (08:24)
[2019-04-04] MEDS: Apixaban 5 MG TABLET PO SCH ×2 (08:25→19:56)
[2019-04-04] MEDS: Furosemide 20 MG TABLET PO SCH (08:25)
--- NOTE | 2019-04-04 14:25 | Internal Med Progress Note ---
Hospitalist Progress Note - Encounter Date of Encounter: 04/04/19 Time of Encounter: 09:00 - Subjective Interval History: Patient denies shortness of breath. Denies abdominal pain nausea or vomiting. No fever. Waiting for placement. - Exam Vitals: Temp Pulse Resp BP Pulse Ox 98.2 F 108 18 113/68 94 04/04/19 11:11 04/04/19 11:11 04/04/19 11:11 04/04/19 11:11 04/04/19 11:11 Exam: General: In no acute distress. Respiratory exam: Occasional scattered rhonchi. No accessory muscle use. No rales Cardiovascular exam: RRR, +S1, +S2. no murmur, gallop, rubs. GI/Abdominal exam: no abdominal tenderness, soft, no peritoneal signs, GILLIAN drain in RUQ Extremities exam: 2+ pedal edema, no calf tenderness Neurological exam: CN II-XII intact, AO X3, no focal deficits. - Assessment and Plan (1) HFrEF (heart failure with reduced ejection fraction) Current Visit: Yes Status: Chronic Assessment and Plan: Relatively recent diagnosis of heart failure with reduced EF, 30-35% on echo 01/2019. Declined [facility] at that time D/C low rate ACEI as BP continuous low after medication. Not on BB due to low BP Still has mild bilateral swelling. Continue Lasix, switch to po home dose as pt has metabolic alkalosis and hypokalemia. Elevated bicarbonate level likely is because of Lasix use. Improved after switch IV Lasix to by mouth. (2) Diabetes mellitus type 2 with complications Current Visit: Yes Status: Chronic Assessment and Plan: A1c 6.8 in August 2018 Metformin on hold basal and medium-dose sliding scale coverage (3) Adrenal insufficiency Current Visit: Yes Status: Acute Assessment and Plan: Continue home medication by mouth flurocortisone and dexamethasone (4) Squamous cell carcinoma of lung, stage IV Current Visit: Yes Status: Chronic Assessment and Plan: Continue outpatient follow-up (5) Pulmonary embolism Current Visit: Yes Status: Chronic Assessment and Plan: Diagnosis of December 2018, had been on Eliquis since then Repeat CTA in January did not show any evidence of PE Had IVC filter placed. Cont Eliquis, (6) DVT prophylaxis Current Visit: Yes Status: Acute Assessment and Plan: On Eliquis (7) A-fib Current Visit: No Status: Acute Assessment and Plan: On Eliquis for stroke prophylaxis. Heart rate is on high side, currently sinus rhythm. On po amiodarone. (8) Acute cholecystitis Current Visit: Yes Status: Acute Assessment and Plan: appreciate surgery input. S/P LC, recover well at this point (9) Sepsis Current Visit: Yes Status: Resolved Assessment and Plan: Due to cholecystitis. Resolved now after surgery and antibiotic use. (10) COPD (chronic obstructive pulmonary disease) Current Visit: Yes Status: Chronic Assessment and Plan: Not in exacerbation resume home inhalers and duoneb PRN (11) CAD (coronary artery disease) Current Visit: Yes Status: Chronic Assessment and Plan: Continue home medications. Patient has no chest pain. (12) Hypomagnesemia Current Visit: Yes Status: Acute Assessment and Plan: Improved after supplement. (13) Hypokalemia Current Visit: Yes Status: Acute Assessment and Plan: Improved after supplement. - Time Spent with Patient Total time spent is greater than 50% in coordination of care (as documented) at patient's floor/unit and/or counseling patient: 30 minutes 25 - 35 minutes Plan of Care Discussed with: patient Internal Medicine: Result - Labs CBC & Chem 7: 04/02/19 05:45 04/04/19 03:52 Labs: BMP 04/04/19 03:52 Sodium 140 Potassium 3.5 Chloride 97 L Carbon Dioxide 36 H BUN 21 Creatinine 0.51 L Glucose 253 H Calcium 8.9 Liver Function 04/04/19 Range/Units 03:52 Total Bilirubin 0.3 (0.3-1.0) mg/dL AST 9 L (13-39) Units/L ALT 14 (7-52) Units/L Alkaline Phosphatase 72 (34-104) Units/L Albumin 2.9 L (3.5-5.7) g/dL - ABG Interpretation ABG results: ABG ABG pH 7.48 pH Units (7.32-7.45) H 04/02/19 07:57 ABG pCO2 55 mmHg (35-45) H 04/02/19 07:57 ABG pO2 70 mmHg (85-104) L 04/02/19 07:57 ABG O2 Saturation 94 % (95-98) L 04/02/19 07:57 PT/INR, D-dimer PT 12.3 Seconds (9.4-12.1) H 03/25/19 18:45 Consult Discharge Plan - Plan Additional Instructions: F/U in 2 weeks and maintain drain until F/U Referrals: Cameron Kirby MD [Partnered Physician] - Maisha Ruth CNP [Primary Care Provider] - Prescriptions: Omeprazole [PriLOSEC] 20 mg PO DAILY 30 Days #30 cap (1) HFrEF (heart failure with reduced ejection fraction) Qualifiers: Heart failure chronicity: chronic Qualified Code(s): I50.22 - Chronic systoli c (congestive) heart failure (2) Diabetes mellitus type 2 with complications Qualifiers: Diabetes mellitus fdc insulin use: without exterminator use Qualified Code(s): E11.8 - Type 2 diabetes mellitus with unspecified complications (4) Squamous cell carcinoma of lung, stage IV Qualifiers: Laterality: unspecified laterality Qualified Code(s): C34.90 - Malignant neoplasm of unspecified part of unspecified bronchus or lung (5) Pulmonary embolism Qualifiers: Pulmonary embolism type: other Chronicity: chronic Acute cor pulmonale presence: without acute cor pulmonale Qualified Code(s): I27.82 - Chronic pulmonary embolism (7) A-fib Qualifiers: Atrial fibrillation type: paroxysmal Qualified Code(s): I48.0 - Paroxysmal atrial fibrillation (9) Sepsis Qualifiers: Sepsis type: sepsis due to unspecified organism Qualified Code(s): A41.9 - Sepsis, unspecified organism (10) COPD (chronic obstructive pulmonary disease) Qualifiers: Emphysema type: unspecified Qualified Code(s): J43.9 - Emphysema, unspecified (11) CAD (coronary artery disease) Qualifiers: Coronary Disease-Associated Artery/Lesion type: [place] artery [place] vs. transplanted heart: unspecified whether [place] or transplanted heart Associated angina: angina presence unspecified Qualified Code(s): I25.10 - Atherosclerotic heart disease of [place] coronary artery without angina pectoris
[2019-04-04] MEDS: Insulin DETEMIR 100 UNIT/ML X5UNITS SQ SCH (19:55)
[2019-04-04] MEDS: risperiDONE 1 MG TABLET PO SCH (19:56)
[2019-04-04] MEDS: lamoTRIgine 100 MG TABLET PO SCH (19:56)
[2019-04-05 05:12] LABS: Hematocrit 27.1 % (35.3-44.9); Hemoglobin 8.8 g/dL (11.5-15.4); Immature Granulocytes % 2.1 % (0-4); Lymphocytes % 8.8 %; Mean Corpuscular HGB Conc 32.5 g/dL (31.6-35.5); Mean Corpuscular Hemoglobin 32.6 pg (28.0-33.3); Mean Corpuscular Volume 100.4 fL (83.0-100.0); Mean Platelet Volume 9.5 fL (9.4-12.4); Monocytes % 5.7 %; Platelet Count 203 K/mcL (140-400); Red Cell Distribution Width 15.8 % (11.5-14.5); Segmented Neutrophils % 83.3 %
[2019-04-05 05:13] LABS: Basophils % 0.1 %; Lymphocytes # 0.6 K/mcL (0.6-4.6); Monocytes # 0.4 K/mcL (0.0-1.3); Neutrophils # 6.1 K/mcL (1.6-8.9); Nucleated Red Blood Cells 0.3 /100 WBC (0)
[2019-04-05 05:31] LABS: BUN/Creatinine Ratio 37 (6-26); Blood Urea Nitrogen 19 mg/dL (8-23); Calcium 8.5 mg/dL (8.6-10.3); Carbon Dioxide 36 mEq/L (23-29); Chloride 100 mEq/L (98-107); Glucose 198 mg/dL (70-105); Osmolality,Calculated 302 (280-300); Potassium 3.3 mEq/L (3.5-5.1); Sodium 142 mEq/L (136-145); eGFR For Non-African Americans > 60 (> 60)
--- NOTE | 2019-04-05 08:55 | Event Note ---
Date of Encounter: 04/05/19 Time of Encounter: 08:54 GILLIAN Negrete. Dispo per primary team. Follow-up appointment scheduled.
[2019-04-05] MEDS: Furosemide 20 MG TABLET PO SCH (09:44)
[2019-04-05] MEDS: Apixaban 5 MG TABLET PO SCH ×2 (09:44→21:34)
[2019-04-05] MEDS: Insulin LISPRO 300 UNITS/3 ML VIAL SQ SCH ×4 (09:44→21:34)
[2019-04-05] MEDS: *HR* Amiodarone 200 MG TABLET PO SCH (09:44)
[2019-04-05] MEDS: Ipratropium/Albuterol Neb 3 ML IH SCH ×2 (10:35→20:37)
[2019-04-05] MEDS: Budesonide/Formoterol 160/4.5 1 PUFF INH IH SCH ×2 (10:35→20:37)
[2019-04-05] MEDS: clonazePAM 1 MG TABLET PO PRN ×2 (11:57→21:41)
--- NOTE | 2019-04-05 16:54 | Internal Med Progress Note ---
Hospitalist Progress Note - Encounter Date of Encounter: 04/05/19 Time of Encounter: 09:00 - Subjective Interval History: Patient denies shortness of breath. Still has bilateral leg swelling, about the same. GILLIAN drain removed by surgery team. Denies abdominal pain, nausea, vomiting, or fever - Exam Vitals: Temp Pulse Resp BP Pulse Ox 97.9 F 111 16 120/79 96 04/05/19 14:44 04/05/19 14:44 04/05/19 14:44 04/05/19 14:44 04/05/19 14:44 Exam: General: In no acute distress. Respiratory exam: Occasional scattered rhonchi. No accessory muscle use. No rales Cardiovascular exam: RRR, +S1, +S2. no murmur, gallop, rubs. GI/Abdominal exam: no abdominal tenderness, soft, no peritoneal signs, GILLIAN drain in RUQ Extremities exam: 2+ pedal edema, no calf tenderness Neurological exam: CN II-XII intact, AO X3, no focal deficits. - Assessment and Plan (1) HFrEF (heart failure with reduced ejection fraction) Current Visit: Yes Status: Chronic Assessment and Plan: Relatively recent diagnosis of heart failure with reduced EF, 30-35% on echo 01/2019. Declined LHC at that time Cannot tolerate TORIN inhibitor or beta ottoniel because of low BP Still has mild bilateral swelling. Continue Lasix, switch to po home dose as pt has metabolic alkalosis and hypokalemia on IV Lasix. Elevated bicarbonate level likely is because of iv Lasix use. Improved after switch IV Lasix to by mouth. (2) Diabetes mellitus type 2 with complications Current Visit: Yes Status: Chronic Assessment and Plan: A1c 6.8 in August 2018 Metformin on hold basal and medium-dose sliding scale coverage (3) Adrenal insufficiency Current Visit: Yes Status: Acute Assessment and Plan: Continue home medication by mouth flurocortisone and dexamethasone (4) Squamous cell carcinoma of lung, stage IV Current Visit: Yes Status: Chronic Assessment and Plan: Continue outpatient follow-up (5) Pulmonary embolism Current Visit: Yes Status: Chronic Assessment and Plan: Diagnosis of December 2018, had been on Eliquis since then Repeat CTA in January did not show any evidence of PE Had IVC filter placed. Cont Eliquis, (6) DVT prophylaxis Current Visit: Yes Status: Acute Assessment and Plan: On Eliquis (7) A-fib Current Visit: No Status: Acute Assessment and Plan: On Eliquis for stroke prophylaxis. Heart rate is on high side, currently sinus rhythm. On po amiodarone. (8) Acute cholecystitis Current Visit: Yes Status: Acute Assessment and Plan: appreciate surgery input. S/P LC, recover well at this point (9) Sepsis Current Visit: Yes Status: Resolved Assessment and Plan: Due to cholecystitis. Resolved now after surgery and antibiotic use. (10) COPD (chronic obstructive pulmonary disease) Current Visit: Yes Status: Chronic Assessment and Plan: Not in exacerbation resume home inhalers and duoneb PRN (11) CAD (coronary artery disease) Current Visit: Yes Status: Chronic Assessment and Plan: Continue home medications. Patient has no chest pain. (12) Hypokalemia Current Visit: Yes Status: Acute Assessment and Plan: Improved after supplement. Continue closely monitor potassium level DVT Prophylaxis: Patient is on Eliquis - Time Spent with Patient Total time spent is greater than 50% in coordination of care (as documented) at patient's floor/unit and/or counseling patient: 25 - 35 minutes Plan of Care Discussed with: patient Internal Medicine: Result - Labs CBC & Chem 7: 04/05/19 04:36 04/05/19 04:36 Labs: Short CBC 04/05/19 Range/Units 04:36 WBC 7.3 (4.3-11.1) K/mcL Hgb 8.8 L (11.5-15.4) g/dL Hct 27.1 L (35.3-44.9) % Plt Count 203 (140-400) K/mcL Neutrophils # 6.1 (1.6-8.9) K/mcL BMP 04/05/19 04:36 Sodium 142 Potassium 3.3 L Chloride 100 Carbon Dioxide 36 H BUN 19 Creatinine 0.51 L Glucose 198 H Calcium 8.5 L - ABG Interpretation ABG results: ABG ABG pH 7.48 pH Units (7.32-7.45) H 04/02/19 07:57 ABG pCO2 55 mmHg (35-45) H 04/02/19 07:57 ABG pO2 70 mmHg (85-104) L 04/02/19 07:57 ABG O2 Saturation 94 % (95-98) L 04/02/19 07:57 PT/INR, D-dimer PT 12.3 Seconds (9.4-12.1) H 03/25/19 18:45 Consult Discharge Plan - Plan Additional Instructions: F/U in 2 weeks and maintain drain until F/U Referrals: Cameron Kirby MD [Partnered Physician] - 04/27/19 8:20 am Maisha Ruth CNP [Primary Care Provider] - Prescriptions: Omeprazole [PriLOSEC] 20 mg PO DAILY 30 Days #30 cap (1) HFrEF (heart failure with reduced ejection fraction) Qualifiers: Heart failure chronicity: chronic Qualified Code(s): I50.22 - Chronic systolic (congestive) heart failure (2) Diabetes mellitus type 2 with complications Qualifiers: Diabetes mellitus dedicated intermodal truck driver insulin use: without dedicated intermodal truck driver use Qualified Code(s): E11.8 - Type 2 diabetes mellitus with unspecified complications (4) Squamous cell carcinoma of lung, stage IV Qualifiers: Laterality: unspecified laterality Qualified Code(s): C34.90 - Malignant neoplasm of unspecified part of unspecified bronchus or lung (5) Pulmonary embolism Qualifiers: Pulmonary embolism type: other Chronicity: chronic Acute cor pulmonale presence: without acute cor pulmonale Qualified Code(s): I27.82 - Chronic pulmonary embolism (7) A-fib Qualifiers: Atrial fibrillation type: paroxysmal Qualified Code(s): I48.0 - Paroxysmal atrial fibrillation (9) Sepsis Qualifiers: Sepsis type: sepsis due to unspecified organism Qualified Code(s): A41.9 - Sepsis, unspecified organism (10) COPD (chronic obstructive pulmonary disease) Qualifiers: Emphysema type: unspecified Qualified Code(s): J43.9 - Emphysema, unspecified (11) CAD (coronary artery disease) Qualifiers: Coronary Disease-Associated Artery/Lesion type: [place] artery [place] vs. transplanted heart: unspecified whether [place] or transplanted heart Associated angina: angina presence unspecified Qualified Code(s): I25.10 - Atherosclerotic heart disease of [place] coronary artery without angina pectoris
[2019-04-05] MEDS ORDERED: *HR* LORazepam 2 MG/ML VIAL IVP PRN (19:15)
[2019-04-05] MEDS: lamoTRIgine 100 MG TABLET PO SCH (21:33)
[2019-04-05] MEDS: risperiDONE 1 MG TABLET PO SCH (21:33)
[2019-04-05] MEDS: Insulin DETEMIR 100 UNIT/ML X5UNITS SQ SCH (21:34)
[2019-04-05] MEDS: *HR* OxyCODONE/APAP 10/325 TABLET PO PRN (21:41)
[2019-04-06 03:39] LABS: BUN/Creatinine Ratio 41 (6-26); Blood Urea Nitrogen 22 mg/dL (8-23); Calcium 8.5 mg/dL (8.6-10.3); Carbon Dioxide 38 mEq/L (23-29); Chloride 98 mEq/L (98-107); Glucose 155 mg/dL (70-105); Osmolality,Calculated 296 (280-300); Sodium 140 mEq/L (136-145); eGFR For Non-African Americans > 60 (> 60)
--- NOTE | 2019-04-06 09:11 | Neurology - Consult Note ---
Date of Encounter: 04/06/19 Time of Encounter: 09:10 Assessment and Plan (1) Seizure-like activity Current Visit: Yes Status: Acute Neuro c/s for seizure like activity [place] [facility] [place] began shaking in all four extremities Total duration of the event was 2-3 minutes; during, she was aware of events but unable to respond to staff's questioning or commands No prior seizure hx. Received Ativan x1 dose and no return of seizures Neuro exam reveals left arm weakness which the patient reports as chronic (she has a h/o CVA; unable to recall if weakness is residual of CVA). Otherwise neuro exam is non focal. Plan c/w ativan prn for breakthrough seizures EEG-pending will hold off on starting AED for now c/w seizure precautions History of Present Illness Chief complaint: Seizure-like activity HPI: Ms. Mace is a 64 year old female with a PMH of cancer, COPD, coronary artery disease, diabetes, hyperlipidemia, and pulmonary embolus. She is s/p laparosc opic cholecystectomy. Neurology has been consulted to evaluate for seizure like activity. Patient seen and examined at bedside today. She is alert and oriented 3. She states that "I got up from bed yesterday due to the bedside commode and all of a sudden got real dizzy and started shaking in my arms and legs ". The duration of this event lasted approximately 2-3 minutes. She denies any tongue bite, urinary incontinence, loss of consciousness. Further, she denies headache, visual disturbances. She reports that she was aware of the fact that she was shaking and was aware of the events around her but she was unable to respond or follow commands during the event. She reports that out of bed she had a "throbbing headache "for a duration of approximately 30 seconds and then all symptoms subsided. She was given Ativan for a seizure aborted and placed on seizure precautions. She refused MRI brain. Past Med Surg Social Fam HX - Past Medical History Medical history: cancer, CHF, COPD, coronary artery disease, diabetes, hyperlipidemia, pulmonary embolus, other Additional medical history: LUNG CA LAST CHEMO A FEW WEEKS AGO. Psychiatric history: anxiety, bipolar, depression, panic disorder - Past Surgical History Surgical History: angioplasty/stent, carotid endarterectomy, other, vascular surgery, LE stent (s), LE vascular intervention Additional surgical history: STENTS IN LEGS: Rashaad filter - Social History Smoking Status: Former smoker Smokeless Tobacco Status: No Alcohol use: none Drug use: none - Family History Father Family Member Ethnicity: Non- Living Status: Hx Family Cardiac Disorders: Yes (CHF) Mother Family Member Ethnicity: Non- Living Status: Hx Family Cardiac Disorders: Yes (CHF) Hx Family Neurologic Disorders: Yes Medications and Allergies Budesonide/Formoterol 160/4.5 [Symbicort 160/4.5] 2 puff IH BID 12/14/18 [History] Cilostazol [Pletal] 100 mg PO BID 12/14/18 [History] risperiDONE [Risperidone] 1 mg PO HS 12/14/18 [History] Citalopram [CeleXA] 40 mg PO DAILY 12/15/18 [History] Clopidogrel [Plavix] 75 mg PO DAILY 12/15/18 [History] Doxepin [Sinequan] 50 mg PO HS 12/15/18 [History] Simvastatin [Zocor] 40 mg PO HS 12/15/18 [History] Apixaban [Eliquis] 5 mg PO BID 02/18/19 [History] Fludrocortisone Acetate [Florinef] 0.1 mg PO BID 03/04/19 [History] Ipratropium/Albuterol Neb [Duoneb] 3 ml IH Q4HR PRN 03/04/19 [History] Lisinopril 2.5 mg PO DAILY 03/04/19 [History] lamoTRIgine [Lamictal] 100 mg PO HS 03/04/19 [History] Dexamethasone [Decadron] 4 mg PO BID PRN #45 tab 03/11/19 [Rx] Dexamethasone [Decadron] 6 mg PO DAILY 03/23/19 [History] Lidocaine/Prilocaine [Emla] 1 appl TP AD 03/23/19 [History] Metformin HCl [Glucophage Xr] 500 mg PO DAILY 03/23/19 [History] Potassium Chloride [K-Tab ER] 20 meq PO DAILY 03/23/19 [History] Tiotropium [Spiriva] 18 mcg IH DAILY 03/23/19 [History] Amiodarone [Cordarone] 200 mg PO DAILY tablet 03/30/19 [Rx] Omeprazole [PriLOSEC] 20 mg PO DAILY 30 Days #30 cap 03/30/19 [Rx] Allergy/AdvReac Type Severity Reaction Status Date / Time Penicillins Allergy See Verified 03/23/19 09:19 Comments All Systems: The remainder of the systems were reviewed and are negative Review of Systems: REVIEW OF SYSTEMS GENERAL: Negative for any nausea, vomiting, fevers, chills NEUROLOGIC: Negative for any blurry vision, blind spots, double vision, facial asymmetry, dysphagia, dysarthria, hemiparesis, hemisensory deficits, paralysis, tingling, numbness, unilateral weakness or numbness/tingling. Negative tongue bite + Seizure-like activity, HEENT: Negative for any head trauma, neck trauma, neck stiffness GENITOURINARY- negative urinary incontinence Physical Examination - Vital Signs Vital Signs: Initial Vital Signs Temp Pulse Resp BP Pulse Ox 97.9 F 107 20 100/71 98 03/22/19 19:46 03/22/19 19:46 03/22/19 19:46 03/22/19 19:46 03/22/19 19:46 - Exam Exam: Examination: General Examination: *CONSTITUTIONAL: Alert and oriented x3, no acute distress *GENERAL APPEARANCE OF PATIENT appears healthy and well groomed *EYES: pupils equal, round, reactive to light and accommodation, conjunctiva clear without masses or ulcerations, fundi normal. *CARDIOVASCULAR no peripheral edema, distal temperature normal, dorsalis pedis pulses normal. See vital signs Musculoskeletal: *GAIT AND STATION deferred *ASSESSMENT OF MUSCLE STRENGTH IN THE UPPER AND LOWER EXTREMITIES right deltoid, bicep, tricep, litigation support analyst strength 4/5. Left deltoid, bicep, tricep, litigation support analyst strength 4/5; but strength of left arm is less than right which patient reports as chronic. Bilateral hip flexors ,anterior tibialis, dorsoflexion of the foot 4/5. *MUSCLE TONE IN THE UPPER AND LOWER EXTREMITIES normal. No abnormal movements, fasciculations or atrophy identified. Neurological: *ORIENTATION to person, situation, time and place *RECURRENT AND REMOTE MEMORY intact *ATTENTION AND CONCENTRATION are normal *LANGUAGE FUNCTION no significant aphasia or dysarthia was noted. *FUND OF KNOWLEDGE aware of current events, past history, vocabulary *MENTAL attention span and concentration normal. *CN II optic fundi were normal, no papilledema noted. *CN III,IV, PERRLA extraocular eye movements were full, no nystagmus and no ptosis noted. *CN V shows normal sensation and jaw opens symmetrically. *CN VII shows normal facial movement symmetrically, upper and lower bilaterally. *CN VIII shows no significant hearing loss on exam *CN IX,,X palate elevated symmetrically *CN XI normal strength in the sternocleidomastoid muscles, symmetrical shoulder shrugging. *CN XII tongue protruded in the midline, with normal strength and movement. *SENSORY EXAMINATION light touch intact *REFLEXES: deep tendon reflexes were symmetrical but diminished diffusely, no pathological reflexes were noted. *CEREBELLAR TESTING normal finger to nose, heel/knee/patel *PAIN LEVEL 0 Results - Laboratory Findings CBC and BMP: 04/05/19 04:36 04/06/19 03:08 Abnormal lab findings: Abnormal lab results WBC 11.4 K/mcL (4.3-11.1) H 03/28/19 03:28 RBC 2.70 M/mcL (3.82-4.97) L 04/05/19 04:36 Hgb 8.8 g/dL (11.5-15.4) L 04/05/19 04:36 Hct 27.1 % (35.3-44.9) L 04/05/19 04:36 MCV 100.4 fL (83.0-100.0) H 04/05/19 04:36 MCH 33.5 pg (28.0-33.3) H 03/28/19 03:28 MCHC 31.0 g/dL (31.6-35.5) L 03/27/19 08:04 RDW 15.8 % (11.5-14.5) H 04/05/19 04:36 Plt Count 129 K/mcL (140-400) L 03/30/19 04:40 Immature Gran % 4.1 % (0-4) H 03/30/19 04:40 8.0 % (0-4) H 03/24/19 05:31 10.0 K/mcL (1.6-8.9) H 03/28/19 03:28 0.3 K/mcL (0.6-4.6) L 03/26/19 00:48 Nucleated RBCs/100 WBC 0.3 /100 WBC (0) H 04/05/19 04:36 Slight Decrease (Normal) L 03/29/19 04:30 Immature Plt Fraction 6.3 % (1.1-6.1) H 03/25/19 03:35 2+ (Not Present) A 03/29/19 04:30 Present (Not Present) A 03/29/19 04:30 1+ (Not Present) A 03/29/19 04:30 PT 12.3 Seconds (9.4-12.1) H 03/25/19 18:45 APTT 21.8 Seconds (26.0-36.0) L 03/23/19 02:57 Heparin Anti-Xa, Unfract 0.02 IU/mL (0.30-0.70) L 03/25/19 18:45 ABG pH 7.48 pH Units (7.32-7.45) H 04/02/19 07:57 ABG pCO2 55 mmHg (35-45) H 04/02/19 07:57 ABG pO2 70 mmHg (85-104) L 04/02/19 07:57 ABG HCO3 41 mEq/L (21-27) H 04/02/19 07:57 ABG Total CO2 43 mEq/L (20-26) H 04/02/19 07:57 ABG O2 Saturation 94 % (95-98) L 04/02/19 07:57 ABG Base Excess 16 mEq/L (-2 to 3) H 04/02/19 07:57 Sodium 135 mEq/L (136-145) L 03/23/19 02:57 Potassium 3.0 mEq/L (3.5-5.1) L 04/06/19 03:08 Chloride 97 mEq/L (98-107) L 04/04/19 03:52 Carbon Dioxide 38 mEq/L (23-29) H 04/06/19 03:08 BUN 7 mg/dL (8-23) L 03/23/19 02:57 0.54 mg/dL (0.60-1.20) L 04/06/19 03:08 41 (6-26) H 04/06/19 03:08 Glucose 155 mg/dL (70-105) H 04/06/19 03:08 POC Glucose 315 mg/dL (70-99) H 04/05/19 20:34 302 (280-300) H 04/05/19 04:36 Calcium 8.5 mg/dL (8.6-10.3) L 04/06/19 03:08 Magnesium 1.4 mg/dL (1.6-2.6) L 04/01/19 03:55 119 Units/L (34-104) H 03/23/19 02:57 AST 9 Units/L (13-39) L 04/04/19 03:52 0.05 ng/mL (< 0.04) H* 03/28/19 03:28 4.6 g/dL (6.4-8.9) L 04/04/19 03:52 2.9 g/dL (3.5-5.7) L 04/04/19 03:52 1.7 g/dL (2.4-3.5) L 04/04/19 03:52 Crossmatch See Detail 03/29/19 13:41 - Diagnostic Findings Additional findings: 03/05/19 MRI brain reviewed MR/MR head/brain wo con IMPRESSION: 1. Three subacute infarcts within the right centrum semiovale measuring up to 1 cm. 2. Remote right MCA infarct. 3. No acute intracranial hemorrhage. 4. Moderate chronic small vessel ischemic changes. The findings were sent to the Radiology Results [facility] at 9:31 am on 03/05/2019to be communicated to a licensed caregiver. Consult Discharge Plan - Plan Additional Instructions: F/U in 2 weeks and maintain drain until F/U Referrals: Cameron Kirby MD [Partnered Physician] - 04/27/19 8:20 am Maisha Ruth CNP [Primary Care Provider] - Prescriptions: Omeprazole [PriLOSEC] 20 mg PO DAILY 30 Days #30 cap
[2019-04-06] MEDS: Furosemide 20 MG TABLET PO SCH (09:17)
[2019-04-06] MEDS: Apixaban 5 MG TABLET PO SCH ×2 (09:18→22:10)
[2019-04-06] MEDS: Insulin LISPRO 300 UNITS/3 ML VIAL SQ SCH ×4 (09:18→22:10)
[2019-04-06] MEDS: *HR* Amiodarone 200 MG TABLET PO SCH (09:18)
[2019-04-06] MEDS: Budesonide/Formoterol 160/4.5 1 PUFF INH IH SCH ×2 (10:38→20:45)
[2019-04-06] MEDS: Ipratropium/Albuterol Neb 3 ML IH SCH ×2 (10:38→20:45)
--- NOTE | 2019-04-06 10:47 | EEG/EMG/Oth Biometrics Report ---
EEG Procedure Report Date of procedure: 04/06/19 EEG Procedure: Routine EEG Procedure Note: This EEG was acquired with standard international 10-20 system with EKG recording. The background EEG activity was characterized by the presence of posterior dominant alpha rhythm with the best frequency up to 11Hz. The background activity was reactive to eye openings. Sleep stages were characterized by the presence of background fragmentation, vertex waves, K complexes, and sleep spindles. There are no electrographic seizures identified during this tracing. There are no epileptiform discharges and focal slowing noted during this recording. Photic stimulation produced no abnormalities. Hyperventilation procedure was not performed. EKG tracing showed normal sinus rhythm. Impression: This is essentially a normal awake and asleep EEG. Clinical Correlation: Normal EEGs, however, do not exclude epilepsy. Clinical correlation advised.
[2019-04-06] MEDS: *HR* OxyCODONE/APAP 10/325 TABLET PO PRN ×2 (13:17→22:28)
--- NOTE | 2019-04-06 15:47 | Internal Med Progress Note ---
Hospitalist Progress Note - Encounter Date of Encounter: 04/06/19 Time of Encounter: 09:00 - Subjective Interval History: Patient has seizure-like movement yesterday and this morning when she tried to get up with assist. Lasted for several seconds, patient complaint dizziness. No confusion after the activity. Review patient's chart, she has syncope pr eviously. Pt had duplex carotid on 06/26/18, no stenosis. Patient still has bilateral leg swelling but no shortness of breath. - Exam Vitals: Temp Pulse Resp BP Pulse Ox 97.9 F 96 16 140/86 96 04/06/19 11:26 04/06/19 11:26 04/06/19 11:26 04/06/19 11:26 04/06/19 11:26 Exam: General: In no acute distress. Respiratory exam: Occasional scattered rhonchi. No accessory muscle use. No rales Cardiovascular exam: RRR, +S1, +S2. no murmur, gallop, rubs. GI/Abdominal exam: no abdominal tenderness, soft, no peritoneal signs, GILLIAN drain in RUQ Extremities exam: 2+ pedal edema, no calf tenderness Neurological exam: CN II-XII intact, AO X3, no focal deficits. - Assessment and Plan (1) HFrEF (heart failure with reduced ejection fraction) Current Visit: Yes Status: Chronic Assessment and Plan: Relatively recent diagnosis of heart failure with reduced EF, 30-35% on echo 01/2019. Declined LHC at that time Cannot tolerate TORIN inhibitor or beta ottoniel because of low BP Still has mild/moderate bilateral swelling. Continue Lasix, switch to po home dose as pt has metabolic alkalosis and hypokalemia on IV Lasix. Elevated bicarbonate level likely is because of iv Lasix use. Improved after switch IV Lasix to by mouth. (2) Diabetes mellitus type 2 with complications Current Visit: Yes Status: Chronic Assessment and Plan: A1c 6.8 in August 2018 Metformin on hold basal and medium-dose sliding scale coverage (3) Adrenal insufficiency Current Visit: Yes Status: Acute Assessment and Plan: Continue home medication by mouth flurocortisone and dexamethasone (4) Squamous cell carcinoma of lung, stage IV Current Visit: Yes Status: Chronic Assessment and Plan: Continue outpatient follow-up (5) Pulmonary embolism Current Visit: Yes Status: Chronic Assessment and Plan: Diagnosis of December 2018, had been on Eliquis since then Repeat CTA in January did not show any evidence of PE Had IVC filter placed. Cont Eliquis, (6) DVT prophylaxis Current Visit: Yes Status: Acute Assessment and Plan: On Eliquis (7) A-fib Current Visit: No Status: Acute Assessment and Plan: On Eliquis for stroke prophylaxis. Heart rate is on high side, currently sinus rhythm. On po amiodarone. (8) Acute cholecystitis Current Visit: Yes Status: Acute Assessment and Plan: appreciate surgery input. S/P LC, recover well at this point. GILLIAN drain removed by surgery (9) Sepsis Current Visit: Yes Status: Resolved Assessment and Plan: Due to cholecystitis. Resolved now after surgery and antibiotic use. (10) COPD (chronic obstructive pulmonary disease) Current Visit: Yes Status: Chronic Assessment and Plan: Not in exacerbation resume home inhalers and duoneb PRN (11) CAD (coronary artery disease) Current Visit: Yes Status: Chronic Assessment and Plan: Continue home medications. Patient has no chest pain. (12) Hypokalemia Current Visit: Yes Status: Acute Assessment and Plan: Will give po supplement. Continue closely monitor potassium level (13) Seizure-like activity Current Visit: Yes Status: Acute Assessment and Plan: Patient has transient loss of consciousness and seizure-like activity every time when she tried to get up. Patient has low BP and on fluorocortisone. Her BP level easily get down on very low-dose BP medication. Highly suspect orthostatic hypotension. - Continue cardiac monitoring - Repeat echo cardiogram shows mild to moderate pericardial effusion, EF 45% - We will repeat duplex carotid - Neurology consult saw patient, recommend continue closely monitoring, ativan as needed for seizure. EEG has been done. - We will check orthostatic vitals but needed under close monitoring. - We will consult cardiology for pericardial effusion. DVT Prophylaxis: On Eliquis - Time Spent with Patient Total time spent is greater than 50% in coordination of care (as documented) at patient's floor/unit and/or counseling patient: 30 min 25 - 35 minutes Internal Medicine: Result - Labs CBC & Chem 7: 04/05/19 04:36 04/06/19 03:08 Labs: BMP 04/06/19 03:08 Sodium 140 Potassium 3.0 L Chloride 98 Carbon Dioxide 38 H BUN 22 Creatinine 0.54 L Glucose 155 H Calcium 8.5 L - ABG Interpretation ABG results: ABG ABG pH 7.48 pH Units (7.32-7.45) H 04/02/19 07:57 ABG pCO2 55 mmHg (35-45) H 04/02/19 07:57 ABG pO2 70 mmHg (85-104) L 04/02/19 07:57 ABG O2 Saturation 94 % (95-98) L 04/02/19 07:57 PT/INR, D-dimer PT 12.3 Seconds (9.4-12.1) H 03/25/19 18:45 - Impressions Impressions Echocardiogram 04/06/19 10:03 Impressions: Sinus tachycardia. LVEF 45%. Consider repeat limited study with Definity. Indeterminate diastolic function. Normal right ventricular structure and function. No significant valvular dysfunction. No pulmonary hypertension. There is a small to moderate pericardial effusion present. There is no echocardiographic evidence of tamponade. Left Ventricular Wall Motion: Rest Echo Findings All wall segments showed normal motion. Findings: Study Quality * Technically adequate exam. ECG Findings * Sinus tachycardia. Left Ventricle * LVEF 45%. * LV wall thickness measurements not well obtained. * Indeterminate diastolic function. Right Ventricle * Normal right ventricular structure and function. Left Atrium * Moderately dilated left atrium. Right Atrium * Normal right atrial size. Aortic Valve * No aortic regurgitation. * Aortic valve not well visualized. * No aortic stenosis. Mitral Valve * No mitral regurgitation. * Mitral valve not well visualized. * No mitral stenosis. * Mild mitral annular calcification Tricuspid Valve * Tricuspid valve not well visualized. * Estimated RA pressure is 8 mmHg. Pulmonic Valve * Pulmonic valve is not well visualized. * No pulmonic stenosis. * No pulmonic regurgitation. Pulmonary Artery * Pulmonary artery not well visualized. Aorta * Normally sized aortic root. Pericardium * There is no echocardiographic evidence of tamponade. * There is a small to moderate pericardial effusion present. Interatrial Septum * No evidence of PFO by color Doppler. * Lipomatous interatrial septum. IVC * The IVC is not dilated. * < 50% respiratory change. Consult Discharge Plan - Plan Additional Instructions: F/U in 2 weeks and maintain drain until F/U Referrals: Cameron Kirby MD [Partnered Physician] - 04/27/19 8:20 am Maisha Ruth CNP [Primary Care Provider] - Prescriptions: Omeprazole [PriLOSEC] 20 mg PO DAILY 30 Days #30 cap (1) HFrEF (heart failure with reduced ejection fraction) Qualifiers: Heart failure chronicity: chronic Qualified Code(s): I50.22 - Chronic systolic (congestive) heart failure (2) Diabetes mellitus type 2 with complications Qualifiers: Diabetes mellitus extermination supervisor insulin use: without correction use Qualified Code(s): E11.8 - Type 2 diabetes mellitus with unspecified complications (4) Squamous cell carcinoma of lung, stage IV Qualifiers: Laterality: unspecified laterality Qualified Code(s): C34.90 - Malignant neoplasm of unspecified part of unspecified bronchus or lung (5) Pulmonary embolism Qualifiers: Pulmonary embolism type: other Chronicity: chronic Acute cor pulmonale presence: without acute cor pulmonale Qualified Code(s): I27.82 - Chronic pulmonary embolism (7) A-fib Qualifiers: Atrial fibrillation type: paroxysmal Qualified Code(s): I48.0 - Paroxysmal atrial fibrillation (9) Sepsis Qualifiers: Sepsis type: sepsis due to unspecified organism Qualified Code(s): A41.9 - Sepsis, unspecified organism (10) COPD (chronic obstructive pulmonary disease) Qualifiers: Emphysema type: unspecified Qualified Code(s): J43.9 - Emphysema, unspecified (11) CAD (coronary artery disease) Qualifiers: Coronary Disease-Associated Artery/Lesion type: barrow artery [place] vs. transplanted heart: unspecified whether barrow or transplanted heart Associated angina: angina presence unspecified Qualified Code(s): I25.10 - Atheroscl erotic heart disease of b[place] coronary artery without angina pectoris
[2019-04-06] MEDS: clonazePAM 1 MG TABLET PO PRN (17:09)
[2019-04-06] MEDS ORDERED: Isovue-370 500 ML BOTTLE IVP ONE (17:35)
[2019-04-06] MEDS: Insulin DETEMIR 100 UNIT/ML X5UNITS SQ SCH (22:10)
[2019-04-06] MEDS: lamoTRIgine 100 MG TABLET PO SCH (22:10)
[2019-04-06] MEDS: risperiDONE 1 MG TABLET PO SCH (22:10)
[2019-04-06] MEDS ORDERED: 0.9 % Sodium Chloride 250 ML IVC ONE (23:30)
[2019-04-07 00:16] LABS: Hematocrit 27.9 % (35.3-44.9); Hemoglobin 9.2 g/dL (11.5-15.4); Immature Granulocytes % 1.5 % (0-4); Lymphocytes # 0.4 K/mcL (0.6-4.6); Lymphocytes % 5.7 %; Mean Corpuscular Hemoglobin 33.2 pg (28.0-33.3); Mean Corpuscular Volume 100.7 fL (83.0-100.0); Mean Platelet Volume 9.1 fL (9.4-12.4); Monocytes # 0.3 K/mcL (0.0-1.3); Monocytes % 4.6 %; Neutrophils # 5.7 K/mcL (1.6-8.9); Platelet Count 228 K/mcL (140-400); Red Blood Count 2.77 M/mcL (3.82-4.97); Red Cell Distribution Width 15.5 % (11.5-14.5); Segmented Neutrophils % 88.2 %
[2019-04-07] MEDS ORDERED: Acetaminophen 325 MG TABLET PO ONE (00:26)
[2019-04-07 04:47] LABS: Basophils % 0.1 %; Hemoglobin 9.4 g/dL (11.5-15.4); Immature Granulocytes % 1.3 % (0-4); Lymphocytes # 0.5 K/mcL (0.6-4.6); Lymphocytes % 7.1 %; Mean Corpuscular HGB Conc 32.4 g/dL (31.6-35.5); Mean Corpuscular Hemoglobin 32.8 pg (28.0-33.3); Mean Platelet Volume 9.2 fL (9.4-12.4); Monocytes # 0.4 K/mcL (0.0-1.3); Monocytes % 5.4 %; Neutrophils # 5.8 K/mcL (1.6-8.9); Platelet Count 247 K/mcL (140-400); Red Blood Count 2.87 M/mcL (3.82-4.97); Red Cell Distribution Width 15.6 % (11.5-14.5); Segmented Neutrophils % 86.1 %
[2019-04-07 05:12] LABS: BUN/Creatinine Ratio 42 (6-26); Blood Urea Nitrogen 20 mg/dL (8-23); Calcium 8.2 mg/dL (8.6-10.3); Carbon Dioxide 35 mEq/L (23-29); Chloride 98 mEq/L (98-107); Glucose 168 mg/dL (70-105); Osmolality,Calculated 300 (280-300); Potassium 3.5 mEq/L (3.5-5.1); Sodium 142 mEq/L (136-145); eGFR For Non-African Americans > 60 (> 60)
[2019-04-07] MEDS: Insulin LISPRO 300 UNITS/3 ML VIAL SQ SCH ×4 (08:06→21:02)
[2019-04-07] MEDS: Furosemide 20 MG TABLET PO SCH (08:59)
[2019-04-07] MEDS: Apixaban 5 MG TABLET PO SCH (08:59)
[2019-04-07] MEDS: *HR* Amiodarone 200 MG TABLET PO SCH (08:59)
--- NOTE | 2019-04-07 11:01 | Neurology Progress Note ---
Date of Encounter: 04/07/19 Time of Encounter: 10:58 Assessment and Plan (1) Seizure-like activity Current Visit: Yes Status: Ruled-out Neurology consult with concern for seizure activity; low suspicion for true seizure activity. Patient seen in follow-up today. Briefly, the patient reports developing shaking-like activity 2 events associated with loss of consciousness. Her events occurred with position change and are thought to be syncope with convulsive event. She has no prior history of seizure disorder and the EEG was unremarkable. Given of these episodes were not associated with a tongue bite, urinary incontinence or typical motor activity concerning for seizures but did not suspect this is a true seizure event. In regards to the sy ncope the patient's history is significant for carotid artery disease and she has had a carotid endarterectomy previously. There are concerns for VBI. Patient refusing MRI of brain. CTA head and neck completed showing chronic white matter microvascular ischemic changes and remote infarcts. Additionally, there is an occluded proximal right common carotid artery with reconstitution of flow seen distally, critical stenosis of the proximal right subclavian artery and moderate to severe stenosis at the left. Primary team has consulted vascular surgery for further evaluation; recommendations appreciated. In regards to treatment patient is already taking combination of eliquis and Plavix which is adequate treatment given stroke prevention. Neurology will continue to follow. Subjective Principal diagnosis: seizure Interval history: Patient seen in follow-up for concerns for seizures. In brief the patient developed shaking-like activity 2 events associated with loss of consciousness and both episodes were associated with hypotension. Both episodes occurred with activity and position change and is concerning for vasovagal syncope and likely convulsive syncope. She has no prior history of seizure disorder and EEG was unremarkable. The patient was seen and examined at bedside today and there are no acute changes and condition overnight, no neurological complaints. She does note that she had an episode of hypotension overnight this is verified on the vital signs review. Etiology of hypotension is unclear. Patient's blood pressure stable at this time. She denies any further concerns. Objective - Constitutional Vitals: Temp Pulse Resp BP Pulse Ox 98.2 F 97 18 146/80 96 04/07/19 07:07 04/07/19 07:07 04/07/19 07:07 04/07/19 07:07 04/07/19 07:07 Exam: Examination: General Examination: *CONSTITUTIONAL: Alert and oriented x3, no acute distress *GENERAL APPEARANCE OF PATIENT appears healthy and well groomed *EYES: pupils equal, round, reactive to light and accommodation, conjunctiva clear without masses or ulcerations, fundi normal. *CARDIOVASCULAR no peripheral edema, distal temperature normal, dorsalis pedis pulses normal. See vital signs Musculoskeletal: *GAIT AND STATION deferred *ASSESSMENT OF MUSCLE STRENGTH IN THE UPPER AND LOWER EXTREMITIES right deltoid, bicep, tricep, oil dispenser strength 4/5. Left deltoid, bicep, tricep, oil dispenser strength 4/5; but strength of left arm is less than right which patient reports as chronic. Bilateral hip flexors ,anterior tibialis, dorsoflexion of the foot 4/5. *MUSCLE TONE IN THE UPPER AND LOWER EXTREMITIES normal. No abnormal movements, fasciculations or atrophy identified. Neurological: *ORIENTATION to person, situation, time and place *RECURRENT AND REMOTE MEMORY intact *ATTENTION AND CONCENTRATION are normal *LANGUAGE FUNCTION no significant aphasia or dysarthia was noted. *FUND OF KNOWLEDGE aware of current events, past history, vocabulary *MENTAL attention span and concentration normal. *CN II optic fundi were normal, no papilledema noted. *CN III,IV, PERRLA extraocular eye movements were full, no nystagmus and no ptosis noted. *CN V shows normal sensation and jaw opens symmetrically. *CN VII shows normal facial movement symmetrically, upper and lower bilaterally. *CN VIII shows no significant hearing loss on exam *CN IX,,X palate elevated symmetrically *CN XI normal strength in the sternocleidomastoid muscles, symmetrical shoulder shrugging. *CN XII tongue protruded in the midline, with normal strength and movement. *SENSORY EXAMINATION light touch intact *REFLEXES: deep tendon reflexes were symmetrical but diminished diffusely, no pathological reflexes were noted. *CEREBELLAR TESTING normal finger to nose, heel/knee/patel *PAIN LEVEL 0 Results - Laboratory Findings CBC and BMP: 04/07/19 04:15 04/07/19 04:15 Abnormal lab findings: Abnormal lab results WBC 11.4 K/mcL (4.3-11.1) H 03/28/19 03:28 RBC 2.87 M/mcL (3.82-4.97) L 04/07/19 04:15 Hgb 9.4 g/dL (11.5-15.4) L 04/07/19 04:15 Hct 29.0 % (35.3-44.9) L 04/07/19 04:15 MCV 101.0 fL (83.0-100.0) H 04/07/19 04:15 MCH 33.5 pg (28.0-33.3) H 03/28/19 03:28 MCHC 31.0 g/dL (31.6-35.5) L 03/27/19 08:04 RDW 15.6 % (11.5-14.5) H 04/07/19 04:15 Plt Count 129 K/mcL (140-400) L 03/30/19 04:40 MPV 9.2 fL (9.4-12.4) L 04/07/19 04:15 Immature Gran % 4.1 % (0-4) H 03/30/19 04:40 8.0 % (0-4) H 03/24/19 05:31 10.0 K/mcL (1.6-8.9) H 03/28/19 03:28 0.5 K/mcL (0.6-4.6) L 04/07/19 04:15 Nucleated RBCs/100 WBC 0.3 /100 WBC (0) H 04/05/19 04:36 Slight Decrease (Normal) L 03/29/19 04:30 Immature Plt Fraction 6.3 % (1.1-6.1) H 03/25/19 03:35 2+ (Not Present) A 03/29/19 04:30 Present (Not Present) A 03/29/19 04:30 1+ (Not Present) A 03/29/19 04:30 PT 12.3 Seconds (9.4-12.1) H 03/25/19 18:45 APTT 21.8 Seconds (26.0-36.0) L 03/23/19 02:57 Heparin Anti-Xa, Unfract 0.02 IU/mL (0.30-0.70) L 03/25/19 18:45 ABG pH 7.48 pH Units (7.32-7.45) H 04/02/19 07:57 ABG pCO2 55 mmHg (35-45) H 04/02/19 07:57 ABG pO2 70 mmHg (85-104) L 04/02/19 07:57 ABG HCO3 41 mEq/L (21-27) H 04/02/19 07:57 ABG Total CO2 43 mEq/L (20-26) H 04/02/19 07:57 ABG O2 Saturation 94 % (95-98) L 04/02/19 07:57 ABG Base Excess 16 mEq/L (-2 to 3) H 04/02/19 07:57 Sodium 135 mEq/L (136-145) L 03/23/19 02:57 Potassium 3.0 mEq/L (3.5-5.1) L 04/06/19 03:08 Chloride 97 mEq/L (98-107) L 04/04/19 03:52 Carbon Dioxide 35 mEq/L (23-29) H 04/07/19 04:15 BUN 7 mg/dL (8-23) L 03/23/19 02:57 0.48 mg/dL (0.60-1.20) L 04/07/19 04:15 42 (6-26) H 04/07/19 04:15 Glucose 168 mg/dL (70-105) H 04/07/19 04:15 POC Glucose 294 mg/dL (70-99) H 04/06/19 19:59 302 (280-300) H 04/05/19 04:36 Calcium 8.2 mg/dL (8.6-10.3) L 04/07/19 04:15 Magnesium 1.4 mg/dL (1.6-2.6) L 04/01/19 03:55 119 Units/L (34-104) H 03/23/19 02:57 AST 9 Units/L (13-39) L 04/04/19 03:52 0.05 ng/mL (< 0.04) H* 03/28/19 03:28 4.6 g/dL (6.4-8.9) L 04/04/19 03:52 2.9 g/dL (3.5-5.7) L 04/04/19 03:52 1.7 g/dL (2.4-3.5) L 04/04/19 03:52 Crossmatch See Detail 03/29/19 13:41 Consult Discharge Plan - Plan Additional Instructions: F/U in 2 weeks and maintain drain until F/U Referrals: Cameron Kirby MD [Partnered Physician] - 04/27/19 8:20 am Maisha Ruth CNP [Primary Care Provider] - Prescriptions: Omeprazole [PriLOSEC] 20 mg PO DAILY 30 Days #30 cap
[2019-04-07] MEDS: Ipratropium/Albuterol Neb 3 ML IH SCH ×2 (11:10→20:24)
[2019-04-07] MEDS: Budesonide/Formoterol 160/4.5 1 PUFF INH IH SCH ×2 (11:10→20:24)
--- NOTE | 2019-04-07 14:20 | Internal Med Progress Note ---
Hospitalist Progress Note - Encounter Date of Encounter: 04/07/19 Time of Encounter: 10:40 - Subjective Interval History: Patient lying down in bed. Still feels dizzy intermittently. Denies any chest pain or palpitations. Tolerating oral diet. No nausea or vomiting. Denies any diarrhea today. - Exam Vitals: Temp Pulse Resp BP Pulse Ox 97.5 F L 100 18 98/65 96 04/07/19 11:03 04/07/19 11:03 04/07/19 11:13 04/07/19 11:03 04/07/19 11:13 Exam: General: Patient is alert, no acute distress, oriented x 3, obese ENT: Mucous membranes moist Respiratory: Decreased breath sounds at both bases Cardiovascular: Regular rate and rhythm. s1 and s2 normal No clicks, rubs, gallops, or murmurs. Bilateral pitting pedal edema Abdomen: Soft nontender, normal bowel sounds Musculoskeletal: Spontaneously moving all extremities Skin: warm, dry, intact. Neuro: Alert oriented x 3 normal cranial nerves, no focal deficits - Assessment and Plan (1) Orthostasis Current Visit: Yes Status: Acute Assessment and Plan: Patient continues to have orthostatic symptoms. Etiology uncertain. She does have stenosis in her subclavian arteries. Consult vascular surgery. Continue Florinef, Decadron. Fall precautions. (2) Stenosis of both subclavian arteries Current Visit: Yes Status: Acute Assessment and Plan: Patient has critical stenosis of right subclavian artery proximally. Also has stenosis-moderate to severe of the left subclavian artery for CT angiogram. Consult to vascular surgery for evaluation. (3) HFrEF (heart failure with reduced ejection fraction) Current Visit: Yes Status: Chronic Assessment and Plan: Cardiology consulted. Continue Lasix. Echocardiogram shows pericardial effusion. We will follow recommendations (4) Acute cholecystitis Current Visit: Yes Status: Acute Assessment and Plan: Status post-laparoscopic cholecystectomy. (5) Seizure-like activity Current Visit: Yes Status: Ruled-out Assessment and Plan: EEG does not show any seizure-like activity. Neurology recommendations appreciated (6) Diabetes mellitus type 2 with complications Current Visit: Yes Status: Chronic Assessment and Plan: Blood sugar in the 200s today. We will increase sliding scale coverage. (7) Adrenal insufficiency Current Visit: Yes Status: Acute Assessment and Plan: Patient currently on Decadron. Has also been started on fludrocortisone. Blood pressure remains low normal. (8) Squamous cell carcinoma of lung, stage IV Current Visit: Yes Status: Chronic (9) Pulmonary embolism Current Visit: Yes Status: Chronic Assessment and Plan: Patient is currently on Eliquis (10) A-fib Current Visit: Yes Status: Chronic Assessment and Plan: Rate controlled. (11) Sepsis Current Visit: Yes Status: Resolved Assessment and Plan: Due to acute cholecystitis (12) COPD (chronic obstructive pulmonary disease) Current Visit: Yes Status: Chronic Assessment and Plan: Not in acute exacerbation. Continue supportive care. (13) Hypokalemia Current Visit: Yes Status: Acute Assessment and Plan: improved. Potassium is 3.5 today. Continue oral supplementation as patient is on Lasix (14) CAD (coronary artery disease) Current Visit: Yes Status: Chronic Assessment and Plan: Plavix, simvastatin (15) DVT prophylaxis Current Visit: Yes Status: Acute - Time Spent with Patient Total time spent is greater than 50% in coordination of care (as documented) at patient's floor/unit and/or counseling patient: Internal Medicine: Result - Labs CBC & Chem 7: 04/07/19 04:15 04/07/19 04:15 Labs: Short CBC 04/06/19 04/07/19 Range/Units 23:13 04:15 WBC 6.5 6.7 (4.3-11.1) K/mcL Hgb 9.2 L 9.4 L (11.5-15.4) g/dL Hct 27.9 L 29.0 L (35.3-44.9) % Plt Count 228 247 (140-400) K/mcL Neutrophils # 5.7 5.8 (1.6-8.9) K/mcL BMP 04/07/19 04:15 Sodium 142 Potassium 3.5 Chloride 98 Carbon Dioxide 35 H BUN 20 Creatinine 0.48 L Glucose 168 H Calcium 8.2 L - ABG Interpretation ABG results: ABG ABG pH 7.48 pH Units (7.32-7.45) H 04/02/19 07:57 ABG pCO2 55 mmHg (35-45) H 04/02/19 07:57 ABG pO2 70 mmHg (85-104) L 04/02/19 07:57 ABG O2 Saturation 94 % (95-98) L 04/02/19 07:57 PT/INR, D-dimer PT 12.3 Seconds (9.4-12.1) H 03/25/19 18:45 - Impressions Impressions Echocardiogram 04/06/19 10:03 Impressions: Sinus tachycardia. LVEF 45%. Consider repeat limited study with Definity. Indeterminate diastolic function. Normal right ventricular structure and function. No significant valvular dysfunction. No pulmonary hypertension. There is a small to moderate pericardial effusion present. There is no echocardiographic evidence of tamponade. Left Ventricular Wall Motion: Rest Echo Findings All wall segments showed normal motion. Findings: Study Quality * Technically adequate exam. ECG Findings * Sinus tachycardia. Left Ventricle * LVEF 45%. * LV wall thickness measurements not well obtained. * Indeterminate diastolic function. Right Ventricle * Normal right ventricular structure and function. Left Atrium * Moderately dilated left atrium. Right Atrium * Normal right atrial size. Aortic Valve * No aortic regurgitation. * Aortic valve not well visualized. * No aortic stenosis. Mitral Valve * No mitral regurgitation. * Mitral valve not well visualized. * No mitral stenosis. * Mild mitral annular calcification Tricuspid Valve * Tricuspid valve not well visualized. * Estimated RA pressure is 8 mmHg. Pulmonic Valve * Pulmonic valve is not well visualized. * No pulmonic stenosis. * No pulmonic regurgitation. Pulmonary Artery * Pulmonary artery not well visualized. Aorta * Normally sized aortic root. Pericardium * There is no echocardiographic evidence of tamponade. * There is a small to moderate pericardial effusion present. Interatrial Septum * No evidence of PFO by color Doppler. * Lipomatous interatrial septum. IVC * The IVC is not dilated. * < 50% respiratory change. Angiography CT 04/06/19 17:35 IMPRESSION: Chronic white matter microvascular ischemic changes and remote infarcts. No intracranial mass identified. Occluded proximal right common carotid artery with reconstitution of flow seen distally. Critical stenosis of the proximal right subclavian artery and moderate to severe stenoses of the left. Cavitary and non cavitary lung nodules. Partially endobronchial right hilar/mediastinal mass resulting in moderate focal narrowing of the right upper lobe bronchus. D/ / Mark Coats MD / Mark Coats MD Interpreting Provider: Mark Coats MD Neck CTA 04/06/19 17:35 IMPRESSION: Chronic white matter microvascular ischemic changes and remote infarcts. No intracranial mass identified. Occluded proximal right common carotid artery with reconstitution of flow seen distally. Critical stenosis of the proximal right subclavian artery and moderate to severe stenoses of the left. Cavitary and non cavitary lung nodules. Partially endobronchial right hilar/mediastinal mass resulting in moderate focal narrowing of the right upper lobe bronchus. D/ / Mark Coats MD / Mark Coats MD Interpreting Provider: Mark Coats MD Consult Discharge Plan - Plan Additional Instructions: F/U in 2 weeks and maintain drain until F/U Referrals: Cameron Kirby MD [Partnered Physician] - 04/27/19 8:20 am Maisha Ruth CNP [Primary Care Provider] - Prescriptions: Omeprazole [PriLOSEC] 20 mg PO DAILY 30 Days #30 cap (3) HFrEF (heart failure with reduced ejection fraction) Qualifiers: Heart failure chronicity: chronic Qualified Code(s): I50.22 - Chronic systolic (congestive) heart failure (6) Diabetes mellitus type 2 with complications Qualifiers: Diabetes mellitus kettle operator insulin use: without long-term use Qualified Code(s): E11.8 - Type 2 diabetes mellitus with unspecified complications (8) Squamous cell carcinoma of lung, stage IV Qualifiers: Laterality: unspecified laterality Qualified Code(s): C34.90 - Malignant neoplasm of unspecified part of unspecified bronchus or lung (9) Pulmonary embolism Qualifiers: Pulmonary embolism type: other Chronicity: chronic Acute cor pulmonale presence: without acute cor pulmonale Qualified Code(s): I27.82 - Chronic pulm onary embolism (10) A-fib Qualifiers: Atrial fibrillation type: paroxysmal Qualified Code(s): I48.0 - Paroxysmal atrial fibrillation (11) Sepsis Qualifiers: Sepsis type: sepsis due to unspecified organism Qualified Code(s): A41.9 - Sepsis, unspecified organism (12) COPD (chronic obstructive pulmonary disease) Qualifiers: Emphysema type: unspecified Qualified Code(s): J43.9 - Emphysema, unspecified (14) CAD (coronary artery disease) Qualifiers: Coronary Disease-Associated Artery/Lesion type: [place] artery [place] vs. transplanted heart: unspecified whether [place] or transplanted heart Associated angina: angina presence unspecified Qualified Code(s): I25.10 - Atherosclerotic heart disease of [place] coronary artery without angina pectoris
--- NOTE | 2019-04-07 14:59 | Cardiology Progress Note ---
Date of Encounter: 04/07/19 Time of Encounter: 14:56 Assessment and Plan (1) CHF (congestive heart failure) Current Visit: No Status: Acute Per cardiology: -Known systolic CHF. -TTE with LVEF 45%, small to moderate pericardial effusion. LVEF has improved from previous TTE 01/2019 30-35%. -Not on BB, natalio inhibitor due to hypotension. -Volume overloaded on exam. On oral lasix. -Net positive i/os. -Consider addtion of BB, natalio/arb prior to discharge if BP will allow. -With symptoms of orthostasis, will hold off on increasing diurestics at this po int. -Will order BENEDICTO hose. Elevated extremities when dependent. Qualifiers: Heart failure type: combined systolic and diastolic Heart failure chronicity: acute on chronic Qualified Code(s): I50.43 - Acute on chronic combined systolic (congestive) and diastolic (congestive) heart failure (2) Pericardial effusion Current Visit: No Status: Acute Per cardiology: -Small to moderate pericardial effusion noted on TTE, no evidence of tamponade. -Patient is hypotensive, however not tachycardic. No pulsus paradoxus noted. -Will continue to monitor. (3) Orthostasis Current Visit: Yes Status: Acute Per cardiology: -Reports symptoms of orthostasis. -vertebral artery occlusions noted. -Not on any anti-hypertensives. -On florinef and decadron for adrenal insufficiency. -Will check Orthostatic vital signs. Discussion w patient/family: The assessment and plan as outlined above was discussed with the patient who expressed understanding and agreement. All questions were answered. Thank you for involving us in the care of your patient. Please call with any questions. Discussed and reviewed with . Subjective Principal diagnosis: Acute cholecystitis Interval history: Patient resting in bed. Complains of leg edema. Reports some intermittent dizziness. Reports respiratory status is about baseline. Objective Vital Signs, Last 4 Hours Temp Pulse Resp BP Pulse Ox 04/07/19 14:15 97.9 F 98 18 95/63 97 04/07/19 11:13 18 96 04/07/19 11:03 97.5 F L 100 18 98/65 96 General: Conversant, Other (Conversational dyspnea noted. ) HEENT: Atraumatic, Normocephaly, Mucus Membranes Moist Neck: No JVD, Normal carotid pulses Cardiac: Reg Rate and Rhythm, Normal S1 and S2, No Murmur Lungs: Other (Lung sounds coarse throughout. ) Neuro: Alert and responsive, No focal deficits noted Abdomen: Soft, Non-Tender Skin: No rashes noted on visualized skin Musculoskeletal: No Chest Wall Tenderness Extremities: No Clubbing, No Cyanosis, Normal Pulses, Other (2+ bilateral lower extremity pitting edema noted. ) Results 04/07/19 04:15 04/07/19 04:15 Lab Results Impressions Echocardiogram 04/06/19 10:03 Impressions: Sinus tachycardia. LVEF 45%. Consider repeat limited study with Definity. Indeterminate diastolic function. Normal right ventricular structure and function. No significant valvular dysfunction. No pulmonary hypertension. There is a small to moderate pericardial effusion present. There is no echocardiographic evidence of tamponade. Left Ventricular Wall Motion: Rest Echo Findings All wall segments showed normal motion. Findings: Study Quality * Technically adequate exam. ECG Findings * Sinus tachycardia. Left Ventricle * LVEF 45%. * LV wall thickness measurements not well obtained. * Indeterminate diastolic function. Right Ventricle * Normal right ventricular structure and function. Left Atrium * Moderately dilated left atrium. Right Atrium * Normal right atrial size. Aortic Valve * No aortic regurgitation. * Aortic valve not well visualized. * No aortic stenosis. Mitral Valve * No mitral regurgitation. * Mitral valve not well visualized. * No mitral stenosis. * Mild mitral annular calcification Tricuspid Valve * Tricuspid valve not well visualized. * Estimated RA pressure is 8 mmHg. Pulmonic Valve * Pulmonic valve is not well visualized. * No pulmonic stenosis. * No pulmonic regurgitation. Pulmonary Artery * Pulmonary artery not well visualized. Aorta * Normally sized aortic root. Pericardium * There is no echocardiographic evidence of tamponade. * There is a small to moderate pericardial effusion present. Interatrial Septum * No evidence of PFO by color Doppler. * Lipomatous interatrial septum. IVC * The IVC is not dilated. * < 50% respiratory change. Angiography CT 04/06/19 17:35 IMPRESSION: Chronic white matter microvascular ischemic changes and remote infarcts. No intracranial mass identified. Occluded proximal right common carotid artery with reconstitution of flow seen distally. Critical stenosis of the proximal right subclavian artery and moderate to severe stenoses of the left. Cavitary and non cavitary lung nodules. Partially endobronchial right hilar/mediastinal mass resulting in moderate focal narrowing of the right upper lobe bronchus. D/ / Mark Coats MD / Mark Coats MD Interpreting Provider: Mark Coats MD Neck CTA 04/06/19 17:35 IMPRESSION: Chronic white matter microvascular ischemic changes and remote infarcts. No intracranial mass identified. Occluded proximal right common carotid artery with reconstitution of flow seen distally. Critical stenosis of the proximal right subclavian artery and moderate to severe stenoses of the left. Cavitary and non cavitary lung nodules. Partially endobronchial right hilar/mediastinal mass resulting in moderate focal narrowing of the right upper lobe bronchus. D/ / Mark Coats MD / Mark Coats MD Interpreting Provider: Mark Coats MD Active Medications Albuterol/Ipratropium (Duoneb) 3 ml IH [id number] PRN PRN Reason: Shortness Of Breath/Wheezing Stop: 09/24/19 14:22 Albuterol/Ipratropium (Duoneb) 3 ml IH [id number] [facility] Stop: 09/25/19 10:01 Last Admin: 04/07/19 11:10 Dose: 3 ml Documented by: Amiodarone HCl (Cordarone) 200 mg PO DAILY [facility] Stop: 09/26/19 13:46 Last Admin: 04/07/19 08:59 Dose: 200 mg Documented by: Apixaban (Eliquis) 5 mg PO BID [facility] Stop: 09/26/19 13:16 Last Admin: 04/07/19 08:59 Dose: 5 mg Documented by: Budesonide/Formoterol Fumarate (Symbicort) 2 puff IH BIDR [facility]; Protocol Stop: 09/22/19 22:01 Last Admin: 04/07/19 11:10 Dose: 2 puff Documented by: Cilostazol (Pletal) 100 mg PO BID [facility] Stop: 09/23/19 09:01 Last Admin: 04/07/19 08:59 Dose: 100 mg Documented by: Citalopram Hydrobromide (Celexa) 40 mg PO DAILY [facility] Stop: 09/26/19 13:16 Last Admin: 04/07/19 08:59 Dose: 40 mg Documented by: Clonazepam (Klonopin) 1 mg PO QID PRN PRN Reason: Anxiety Stop: 09/22/19 10:52 Last Admin: 04/06/19 17:09 Dose: 1 mg Documented by: Clopidogrel Bisulfate (Plavix) 75 mg PO DAILY [facility] Stop: 09/26/19 13:16 Last Admin: 04/07/19 08:59 Dose: 75 mg Documented by: Dexamethasone (Decadron) 6 mg PO DAILY [facility] Stop: 09/27/19 09:01 Last Admin: 04/07/19 08:58 Dose: 6 mg Documented by: Dextrose/Water (Dextrose 50% (Syg)) 25 ml IVP AD PRN PRN Reason: Hypoglycemia Stop: 09/21/19 20:01 Docusate Sodium (Colace) 100 mg PO BID PRN; Protocol PRN Reason: Constipation Stop: 09/27/19 21:33 Fludrocortisone Acetate (Florinef) 0.1 mg PO BID [facility] Stop: 09/26/19 13:46 Last Admin: 04/07/19 08:59 Dose: 0.1 mg Documented by: Furosemide (Lasix) 20 mg PO DAILY [facility] Stop: 10/01/19 09:01 Last Admin: 04/07/19 08:59 Dose: 20 mg Documented by: Glucagon (Glucagen) 1 mg IM ONCE PRN PRN Reason: Hypoglycemia Stop: 09/21/19 20:01 Glucose (Gluctose) 15 gm PO ONCE PRN PRN Reason: Hypoglycemia Stop: 09/21/19 20:01 Glucose (Gluctose) 30 gm PO ONCE PRN PRN Reason: Hypoglycemia Stop: 09/21/19 20:01 Dextrose (Dextrose 5%) 1,000 mls @ 100 mls/hr IVC .Q10H PRN PRN Reason: HYPOGLYCEMIA Stop: 09/21/19 20:01 Insulin Detemir (Levemir) 20 unit SQ HS [facility] Stop: 10/01/19 21:01 Last Admin: 04/06/19 22:10 Dose: 20 unit Documented by: Insulin Human Lispro (Humalog) 0 units SQ HS [facility]; Protocol Stop: 09/25/19 21:01 Last Admin: 04/06/19 22:10 Dose: 5 units Documented by: Insulin Human Lispro (Humalog) 0 units SQ TIDAC [facility]; Protocol Stop: 09/25/19 08:46 Last Admin: 04/07/19 12:15 Dose: 8 units Documented by: Lamotrigine (Lamictal) [address] [facility] Stop: 09/22/19 21:01 Last Admin: 04/06/19 22:10 Dose: 100 mg Documented by: Lorazepam (Ativan) 1 mg IVP Q2HR PRN PRN Reason: Seizure Activity Stop: 10/05/19 19:16 Naloxone HCl (Narcan) 0.4 mg IVP Q2M PRN PRN Reason: SEE COMMENTS Stop: 09/21/19 19:57 Omeprazole (Prilosec) 20 mg PO DAILY@0630 [facility]; Protocol Stop: 09/30/19 06:31 Last Admin: 04/07/19 05:52 Dose: 20 mg Documented by: Ondansetron HCl (Zofran) 4 mg IVP Q8HR PRN; Protocol PRN Reason: Nausea And Vomiting Stop: 09/22/19 08:44 Oxycodone/Acetaminophen (Percocet 10/325) 1 each PO Q8HR PRN PRN Reason: Pain Stop: 09/24/19 14:22 Last Admin: 04/06/19 13:17 Dose: 1 each Documented by: Potassium Chloride (Potassium Chloride) 20 meq PO DAILY [facility] Stop: 09/27/19 09:01 Last Admin: 04/07/19 08:59 Dose: 20 meq Documented by: Promethazine HCl (Phenergan) 12.5 mg IVP Q8HR PRN PRN Reason: Nausea And Vomiting Stop: 09/22/19 02:08 Risperidone (Risperdal) [address] [facility] Stop: 09/22/19 21:01 Last Admin: 04/06/19 22:10 Dose: 1 mg Documented by: Simvastatin (Zocor) [address] [facility]; Protocol Stop: 09/22/19 21:01 Last Admin: 04/06/19 22:10 Dose: 40 mg Documented by: Laboratory Tests 04/07/19 04/07/19 04:15 04:15 Hgb 9.4 L Creatinine 0.48 L - Imaging and Cardiology Chest Xray: report reviewed Echo: report reviewed - EKG Interpretation EKG results cardiology: other (Telemetry reviewed with average HR previous 12 hours noted to be 95, SR. PVCs, PACs noted.) Consult Discharge Plan - Plan Additional Instructions: F/U in 2 weeks and maintain drain until F/U Referrals: Cameron Kirby MD [Partnered Physician] - 04/27/19 8:20 am Maisha Ruth CNP [Primary Care Provider] - Prescriptions: Omeprazole [PriLOSEC] 20 mg PO DAILY 30 Days #30 cap
[2019-04-07] MEDS: clonazePAM 1 MG TABLET PO PRN (17:11)
[2019-04-07] MEDS: *HR* OxyCODONE/APAP 10/325 TABLET PO PRN (17:11)
--- NOTE | 2019-04-07 17:41 | Vascular/Endovasc Consult Note ---
Date of Encounter: 04/07/19 Time of Encounter: 17:38 Assessment and Plan (1) Dizziness Current Visit: Yes Status: Acute Patient has significant and incapacitating dizziness. CT angiogram of the neck suggests bilateral subclavian artery stenosis which would create significant decrease in the inflow and pressure to posterior fossa of the brain. (2) Stenosis of both subclavian arteries Current Visit: Yes Status: Acute Bilateral proximal subclavian artery stenosis. We will evaluate with arch aortogram and possible endovascular intervention for tomorrow. This was reviewed in full with the patient. She wishes to proceed with intervention if possible. (3) Lung cancer Current Visit: Yes Status: Chronic Stage IV squamous cell carcinoma of the lung. The patient is only had one chemotherapy treatment to date. Qualifiers: Laterality: right Lung location: upper lobe of lung Qualified Code(s): C34.11 - Malignant neoplasm of upper lobe, right bronchus or lung (4) Carotid artery stenosis with cerebral infarction Current Visit: No Status: Chronic Patient with history of bilateral carotid artery endarterectomies and previous strokes. - History of Present Illness Consult date: 04/07/19 Requesting physician: Shar Liu Consult reason: Dizziness/carotid stenosis/subclavian stenosis Chief complaint: Dizziness History of present illness: Ms. Mace is a 64 year old female Who is admitted in late February because of abdominal pain. She went on to have a cholecystectomy. Following the cholecystectomy she noted after 4-5 days significant exacerbation of her dizziness. She feels that the dizziness has been getting worse. Prior to admission she was able to walk around her home and take care of herself. Presently she cannot get up out of bed before being incapacitated by the dizziness. The patient has multiple ongoing medical problems. She has stage IV squamous cell lung carcinoma diagnosed in November. She has received only one chemotherapy treatment up-to-date. She has had a history of diabetes, coronary artery disease, congestive heart failure, atrial fibrillation, stroke, hyperlipidemia, pulmonary embolism, and PAD. The patient is status post bilateral carotid endarterectomies and bilateral iliac artery stent angioplasties. As part of her workup a CT antrum of the neck was performed yesterday. This demonstrated an area of suspicious high-grade stenosis or occlusion of the proximal right common carotid artery as well as bilateral proximal subclavian artery stenosis. Past Med Surg Social Fam HX - Past Medical History Medical history: cancer, CHF, COPD, coronary artery disease, diabetes, hyperlipidemia, pulmonary embolus, other Additional medical history: LUNG CA LAST CHEMO A FEW WEEKS AGO. Psychiatric history: anxiety, bipolar, depression, panic disorder - Past Surgical History Surgical History: angioplasty/stent, carotid endarterectomy, other, vascular surgery, LE stent (s), LE vascular intervention Additional surgical history: STENTS IN LEGS: Rashaad filter - Social History Smoking Status: Former smoker Smokeless Tobacco Status: No Alcohol use: none Drug use: none - Family History Father Family Member Ethnicity: Non- Living Status: Hx Family Cardiac Disorders: Yes (CHF) Mother Family Member Ethnicity: Non- Living Status: Hx Family Cardiac Disorders: Yes (CHF) Hx Family Neurologic Disorders: Yes Medications and Allergies Budesonide/Formoterol 160/4.5 [Symbicort 160/4.5] 2 puff IH BID 12/14/18 [His tory] Cilostazol [Pletal] 100 mg PO BID 12/14/18 [History] risperiDONE [Risperidone] 1 mg PO HS 12/14/18 [History] Citalopram [CeleXA] 40 mg PO DAILY 12/15/18 [History] Clopidogrel [Plavix] 75 mg PO DAILY 12/15/18 [History] Doxepin [Sinequan] 50 mg PO HS 12/15/18 [History] Simvastatin [Zocor] 40 mg PO HS 12/15/18 [History] Apixaban [Eliquis] 5 mg PO BID 02/18/19 [History] Fludrocortisone Acetate [Florinef] 0.1 mg PO BID 03/04/19 [History] Ipratropium/Albuterol Neb [Duoneb] 3 ml IH Q4HR PRN 03/04/19 [History] Lisinopril 2.5 mg PO DAILY 03/04/19 [History] lamoTRIgine [Lamictal] 100 mg PO HS 03/04/19 [History] Dexamethasone [Decadron] 4 mg PO BID PRN #45 tab 03/11/19 [Rx] Dexamethasone [Decadron] 6 mg PO DAILY 03/23/19 [History] Lidocaine/Prilocaine [Emla] 1 appl TP AD 03/23/19 [History] Metformin HCl [Glucophage Xr] 500 mg PO DAILY 03/23/19 [History] Potassium Chloride [K-Tab ER] 20 meq PO DAILY 03/23/19 [History] Tiotropium [Spiriva] 18 mcg IH DAILY 03/23/19 [History] Amiodarone [Cordarone] 200 mg PO DAILY tablet 03/30/19 [Rx] Omeprazole [PriLOSEC] 20 mg PO DAILY 30 Days #30 cap 03/30/19 [Rx] Allergy/AdvReac Type Severity Reaction Status Date / Time Penicillins Allergy See Verified 03/23/19 09:19 Comments All Systems Review: The remainder of the systems were reviewed and are negative Exam Vital Signs, Last 4 Hours Temp Pulse Resp BP Pulse Ox 04/07/19 14:15 97.9 F 98 18 95/63 97 General: Present: Conversant, No Apparent Distress, Other (Patient has marked swelling of her face and neck as well as left upper extremity and both lower extremities.) HEENT: Present: Atraumatic, Trachea midline, Other (Facial and neck swelling) Neck: Present: Left Carotid bruit, Right Carotid bruit, Other (Positive right supraclavicular bruit and positive left infraclavicular bruit.). Absent: JVD, Midline deformity, Tracheal deviation Cardiac: Present: Reg Rate and Rhythm, Normal S1 and S2 Lungs: Present: Decreased breath sounds, No Wheeze, Rales, Rhonchi Neuro: Present: Alert and responsive, No focal deficits noted, Cranial nerves grossly intact, Motor nerves grossly intact, Sensory nerves grossly intact Abdomen: Present: Soft, Non-tender. Absent: Masses Vascular: Present: Normal capillary refill, Pulse, diminished (Upper extremity pulses are weakly diminished.), Edema (Significant edema of both lower extremities that is pitting and is 2-3+. Patient also has edema of left upper extremity was also the site of a upper arm PICC line.), Color/Temperature (Feet are warm and pink.) Skin: Absent: Wound/ulcer(s) Consult Discharge Plan - Plan Additional Instructions: F/U in 2 weeks and maintain drain until F/U Referrals: Cameron Kirby MD [Partnered Physician] - 04/27/19 8:20 am Maisha Ruth CNP [Primary Care Provider] - Prescriptions: Omeprazole [PriLOSEC] 20 mg PO DAILY 30 Days #30 cap
[2019-04-07] MEDS: risperiDONE 1 MG TABLET PO SCH (21:01)
[2019-04-07] MEDS: lamoTRIgine 100 MG TABLET PO SCH (21:01)
[2019-04-07] MEDS: Insulin DETEMIR 100 UNIT/ML X5UNITS SQ SCH (21:02)
[2019-04-08] MEDS: *HR* OxyCODONE/APAP 10/325 TABLET PO PRN (03:54)
[2019-04-08] MEDS: clonazePAM 1 MG TABLET PO PRN ×3 (03:54→20:34)
[2019-04-08 05:27] LABS: BUN/Creatinine Ratio 47 (6-26); Blood Urea Nitrogen 20 mg/dL (8-23); Calcium 8.1 mg/dL (8.6-10.3); Carbon Dioxide 36 mEq/L (23-29); Chloride 99 mEq/L (98-107); Glucose 189 mg/dL (70-105); Osmolality,Calculated 292 (280-300); Potassium 3.2 mEq/L (3.5-5.1); Sodium 137 mEq/L (136-145); eGFR For Non-African Americans > 60 (> 60)
[2019-04-08 05:47] LABS: Basophils % 0.2 %; Hematocrit 27.5 % (35.3-44.9); Hemoglobin 9.1 g/dL (11.5-15.4); Immature Granulocytes % 1.2 % (0-4); Lymphocytes # 0.5 K/mcL (0.6-4.6); Lymphocytes % 8.6 %; Mean Corpuscular HGB Conc 33.1 g/dL (31.6-35.5); Mean Corpuscular Volume 99.6 fL (83.0-100.0); Mean Platelet Volume 9.2 fL (9.4-12.4); Monocytes # 0.3 K/mcL (0.0-1.3); Neutrophils # 4.8 K/mcL (1.6-8.9); Platelet Count 236 K/mcL (140-400); Red Blood Count 2.76 M/mcL (3.82-4.97); Red Cell Distribution Width 15.8 % (11.5-14.5)
[2019-04-08] MEDS: Budesonide/Formoterol 160/4.5 1 PUFF INH IH SCH ×2 (07:44→19:43)
[2019-04-08] MEDS: Ipratropium/Albuterol Neb 3 ML IH SCH ×2 (07:45→19:43)
[2019-04-08] MEDS: Insulin LISPRO 300 UNITS/3 ML VIAL SQ SCH ×4 (08:00→20:29)
[2019-04-08] MEDS ORDERED: Heparin 1,000 UNITS/500 mL 500 ML ONE ×2 (09:38→11:01)
[2019-04-08] MEDS ORDERED: 0.9 % Sodium Chloride 2,000 ML ONE (09:38)
[2019-04-08] MEDS ORDERED: *HR* Heparin 10,000 UNIT/10 ML VIAL ONE (09:39)
[2019-04-08] MEDS ORDERED: Isovue-300 150 ML INFUS..BTL ONE ×2 (09:43→11:23)
--- NOTE | 2019-04-08 09:58 | Pre-Sedation Evaluation ---
Pre-sedation evaluation - Pre-sedation checklist Date of procedure: 04/08/19 Procedure: carotid angiogram Recent Vitals: Last Vital Signs Temp 97.9 F 04/08/19 06:53 Pulse 90 04/08/19 06:53 Resp 18 04/08/19 07:46 BP 115/76 04/08/19 06:53 Pulse Ox 99 04/08/19 07:46 H&P (including ROS) documented in medical record: Yes Previous reaction to sedatives/anesthetics: No Dietary Status: NPO after Midnight Dentition: full dentition Possible difficult airway: Yes ASA Classification *see protocol: CLASS IV-Severe systemic disease/constant threat to pt's life Plan of Care: Pt appropriate candidate for procedure/moderate/conscious sedation, Risks/benefits of procedure/sedation discussed w/ patient/family
[2019-04-08] MEDS ORDERED: *HR* Midazolam HCl 2 MG/2 ML VIAL ONE (10:27)
--- NOTE | 2019-04-08 11:37 | Procedure Note ---
Date of procedure: 04/08/19 Pre-op diagnosis: carotid and subclavian stenosis/dizzyness Post-op diagnosis: same Procedure: Arch aortogram Selective right upper extremity angiogram Stent angioplasty of proximal right common carotid angiogram Anesthesia: MAC Surgeon: Mckay Pina Was there an nurse assistant present: No Estimated blood loss (cc): 0 Specimen: 0 Condition: stable Disposition: floor
[2019-04-08] MEDS ORDERED: Acetaminophen 325 MG TABLET PO PRN (11:41)
[2019-04-08] MEDS ORDERED: *HR* FentaNYL (PF) 100 MCG/2 ML VIAL ONE (11:42)
[2019-04-08] MEDS: *HR* Amiodarone 200 MG TABLET PO SCH (12:08)
[2019-04-08] MEDS: Insulin DETEMIR 100 UNIT/ML X5UNITS SQ SCH ×2 (12:08→20:34)
[2019-04-08] MEDS: Furosemide 20 MG TABLET PO SCH (12:08)
[2019-04-08] MEDS: *HR* HYDROcodone/Acet 5/325 mg TABLET PO PRN ×3 (12:11→20:40)
--- NOTE | 2019-04-08 12:30 | Internal Med Progress Note ---
Hospitalist Progress Note - Encounter Date of Encounter: 04/08/19 Time of Encounter: 09:20 - Subjective Interval History: Evaluated patient earlier today. She has not been up for long today. Has not had any dizzy spells while lying in bed. Has been nothing by mouth for planned angiogram today. No chest pain or palpitations. No fevers or chills. - Exam Vitals: Temp Pulse Resp BP Pulse Ox 97.9 F 90 18 115/76 99 04/08/19 06:53 04/08/19 06:53 04/08/19 07:46 04/08/19 06:53 04/08/19 07:46 Exam: General: Patient is alert, no acute distress, oriented x 3 ENT: Mucous membranes moist Respiratory: Decreased breath sounds at both bases. Cardiovascular: Regular rate and rhythm. s1 and s2 normal No clicks, rubs, gallops, or murmurs. Bilateral lower extremity edema Abdomen: Abdomen is soft, nontender. Bowel sounds are present Musculoskeletal: Spontaneously moving all extremities Skin: warm, dry, intact. Neuro: Alert oriented x 3 normal cranial nerves, no focal deficits - Assessment and Plan (1) Orthostasis Current Visit: Yes Status: Acute Assessment and Plan: Etiology uncertain. Cardiology, neurology and vascular surgery recommendations appreciated. Patient to undergo angiogram today. BENEDICTO hose stockings ordered. Fall precautions. (2) Stenosis of both subclavian arteries Current Visit: Yes Status: Acute Assessment and Plan: Angiogram plan for today. Vascular surgery following. (3) HFrEF (heart failure with reduced ejection fraction) Current Visit: Yes Status: Chronic Assessment and Plan: Cardiology evaluated patient. Currently only on oral Lasix although patient would benefit from higher dose and maybe even intravenous Lasix mainly due to episodes of orthostasis and hypotension. Continue other medications as tolerated. (4) Acute cholecystitis Current Visit: Yes Status: Acute Assessment and Plan: Status post laparoscopic cholecystectomy. No acute issues at this time. (5) Seizure-like activity Current Visit: Yes Status: Ruled-out (6) Diabetes mellitus type 2 with complications Current Visit: Yes Status: Chronic Assessment and Plan: Blood sugars are better controlled today. We will continue to monitor after patient returns from surgery on a diabetic diet. (7) Adrenal insufficiency Current Visit: Yes Status: Acute Assessment and Plan: Continue Florinef and Decadron (8) Squamous cell carcinoma of lung, stage IV Current Visit: Yes Status: Chronic Assessment and Plan: Follow up with oncology as outpatient (9) Pulmonary embolism Current Visit: Yes Status: Chronic Assessment and Plan: Continue Eliquis (10) A-fib Current Visit: Yes Status: Chronic Assessment and Plan: Rate controlled. On Eliquis for anticoagulation (11) Sepsis Current Visit: Yes Status: Resolved Assessment and Plan: now resolved. Antibiotic therapy completed (12) COPD (chronic obstructive pulmonary disease) Current Visit: Yes Status: Chronic Assessment and Plan: Not in acute exacerbation. (13) Hypokalemia Current Visit: Yes Status: Acute Assessment and Plan: Potassium 3.2 today. Continue supplementation (14) CAD (coronary artery disease) Current Visit: Yes Status: Chronic Assessment and Plan: Patient on Plavix, statin. No chest pain reported (15) DVT prophylaxis Current Visit: Yes Status: Acute Assessment and Plan: On Eliquis - Time Spent with Patient Total time spent is greater than 50% in coordination of care (as documented) at patient's floor/unit and/or counseling patient: Internal Medicine: Result - Labs CBC & Chem 7: 04/08/19 04:40 04/08/19 04:40 Labs: Short CBC 04/08/19 Range/Units 04:40 WBC 5.7 (4.3-11.1) K/mcL Hgb 9.1 L (11.5-15.4) g/dL Hct 27.5 L (35.3-44.9) % Plt Count 236 (140-400) K/mcL Neutrophils # 4.8 (1.6-8.9) K/mcL BMP 04/08/19 04:40 Sodium 137 Potassium 3.2 L Chloride 99 Carbon Dioxide 36 H BUN 20 Creatinine 0.43 L Glucose 189 H Calcium 8.1 L - ABG Interpretation ABG results: ABG ABG pH 7.48 pH Units (7.32-7.45) H 04/02/19 07:57 ABG pCO2 55 mmHg (35-45) H 04/02/19 07:57 ABG pO2 70 mmHg (85-104) L 04/02/19 07:57 ABG O2 Saturation 94 % (95-98) L 04/02/19 07:57 PT/INR, D-dimer PT 12.3 Seconds (9.4-12.1) H 03/25/19 18:45 - Impressions Impressions Angiography CT 04/06/19 17:35 IMPRESSION: Chronic white matter microvascular ischemic changes and remote infarcts. No intracranial mass identified. Occluded proximal right common carotid artery with reconstitution of flow seen distally. Critical stenosis of the proximal right subclavian artery and moderate to severe stenoses of the left. Cavitary and non cavitary lung nodules. Partially endobronchial right hilar/mediastinal mass resulting in moderate focal narrowing of the right upper lobe bronchus. D/ / Mark Coats MD / Mark Coats MD Interpreting Provider: Mark oCats MD Neck CTA 04/06/19 17:35 IMPRESSION: Chronic white matter microvascular ischemic changes and remote infarcts. No intracranial mass identified. Occluded proximal right common carotid artery with reconstitution of flow seen distally. Critical stenosis of the proximal right subclavian artery and moderate to severe stenoses of the left. Cavitary and non cavitary lung nodules. Partially endobronchial right hilar/mediastinal mass resulting in moderate focal narrowing of the right upper lobe bronchus. D/ / Mark Coats MD / Mark Coats MD Interpreting Provider: Mark Coats MD Consult Discharge Plan - Plan Additional Instructions: F/U in 2 weeks and maintain drain until F/U Referrals: Cameron Kirby MD [Partnered Physician] - 04/27/19 8:20 am Maisha Ruth CNP [Primary Care Provider] - Prescriptions: Omeprazole [PriLOSEC] 20 mg PO DAILY 30 Days #30 cap (3) HFrEF (heart failure with reduced ejection fraction) Qualifiers: Heart failure chronicity: chronic Qualified Code(s): I50.22 - Chronic systolic (congestive) heart failure (6) Diabetes mellitus type 2 with complications Qualifiers: Diabetes mellitus 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 security 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 insulin use: without senior care use Qualified Code(s): E11.8 - Type 2 diabetes mellitus with unspecified complications (8) Squamous cell carcinoma of lung, stage IV Qualifiers: Laterality: unspecified laterality Qualified Code(s): C34.90 - Malignant neoplasm of unspecified part of unspecified bronchus or lung (9) Pulmonary embolism Qualifiers: Pulmonary embolism type: other Chronicity: chronic Acute cor pulmonale presence: without acute cor pulmonale Qualified Code(s): I27.82 - Chronic pulmonary embolism (10) A-fib Qualifiers: Atrial fibrillation type: paroxysmal Qualified Code(s): I48.0 - Paroxysmal at rial fibrillation (11) Sepsis Qualifiers: Sepsis type: sepsis due to unspecified organism Qualified Code(s): A41.9 - Sepsis, unspecified organism (12) COPD (chronic obstructive pulmonary disease) Qualifiers: Emphysema type: unspecified Qualified Code(s): J43.9 - Emphysema, unspecified (14) CAD (coronary artery disease) Qualifiers: Coronary Disease-Associated Artery/Lesion type: [place] artery [place] vs. transplanted heart: unspecified whether [place] or transplanted heart Associated angina: angina presence unspecified Qualified Code(s): I25.10 - Atherosclerotic heart disease of [place] coronary artery without angina pectoris
--- NOTE | 2019-04-08 12:33 | Neurology Progress Note ---
Date of Encounter: 04/08/19 Time of Encounter: 12:33 Assessment and Plan (1) Seizure-like activity Current Visit: Yes Status: Ruled-out Subjective Principal diagnosis: Acute cholecystitis Interval history: Patient seen in follow-up for concerns for seizures. In brief the patient developed shaking-like activity 2 events associated with loss of consciousness and both episodes were associated with hypotension and syncope. She is a vasculopath with stenosis of the bilateral subclavian arteries. These findings explain the cause of syncope. Seizure-like activity most likely convulsive syncope. Objective - Constitutional Vitals: Temp Pulse Resp BP Pulse Ox 97.9 F 90 18 115/76 99 04/08/19 06:53 04/08/19 06:53 04/08/19 07:46 04/08/19 06:53 04/08/19 07:46 Results - Laboratory Findings CBC and BMP: 04/08/19 04:40 04/08/19 04:40 Abnormal lab findings: Abnormal lab results WBC 11.4 K/mcL (4.3-11.1) H 03/28/19 03:28 RBC 2.76 M/mcL (3.82-4.97) L 04/08/19 04:40 Hgb 9.1 g/dL (11.5-15.4) L 04/08/19 04:40 Hct 27.5 % (35.3-44.9) L 04/08/19 04:40 MCV 101.0 fL (83.0-100.0) H 04/07/19 04:15 MCH 33.5 pg (28.0-33.3) H 03/28/19 03:28 MCHC 31.0 g/dL (31.6-35.5) L 03/27/19 08:04 RDW 15.8 % (11.5-14.5) H 04/08/19 04:40 Plt Count 129 K/mcL (140-400) L 03/30/19 04:40 MPV 9.2 fL (9.4-12.4) L 04/08/19 04:40 Immature Gran % 4.1 % (0-4) H 03/30/19 04:40 8.0 % (0-4) H 03/24/19 05:31 10.0 K/mcL (1.6-8.9) H 03/28/19 03:28 0.5 K/mcL (0.6-4.6) L 04/08/19 04:40 Nucleated RBCs/100 WBC 0.3 /100 WBC (0) H 04/05/19 04:36 Slight Decrease (Normal) L 03/29/19 04:30 Immature Plt Fraction 6.3 % (1.1-6.1) H 03/25/19 03:35 2+ (Not Present) A 03/29/19 04:30 Present (Not Present) A 03/29/19 04:30 1+ (Not Present) A 03/29/19 04:30 PT 12.3 Seconds (9.4-12.1) H 03/25/19 18:45 APTT 21.8 Seconds (26.0-36.0) L 03/23/19 02:57 Heparin Anti-Xa, Unfract 0.02 IU/mL (0.30-0.70) L 03/25/19 18:45 ABG pH 7.48 pH Units (7.32-7.45) H 04/02/19 07:57 ABG pCO2 55 mmHg (35-45) H 04/02/19 07:57 ABG pO2 70 mmHg (85-104) L 04/02/19 07:57 ABG HCO3 41 mEq/L (21-27) H 04/02/19 07:57 ABG Total CO2 43 mEq/L (20-26) H 04/02/19 07:57 ABG O2 Saturation 94 % (95-98) L 04/02/19 07:57 ABG Base Excess 16 mEq/L (-2 to 3) H 04/02/19 07:57 Sodium 135 mEq/L (136-145) L 03/23/19 02:57 Potassium 3.2 mEq/L (3.5-5.1) L 04/08/19 04:40 Chloride 97 mEq/L (98-107) L 04/04/19 03:52 Carbon Dioxide 36 mEq/L (23-29) H 04/08/19 04:40 BUN 7 mg/dL (8-23) L 03/23/19 02:57 0.43 mg/dL (0.60-1.20) L 04/08/19 04:40 47 (6-26) H 04/08/19 04:40 Glucose 189 mg/dL (70-105) H 04/08/19 04:40 POC Glucose 261 mg/dL (70-99) H 04/07/19 19:41 302 (280-300) H 04/05/19 04:36 Calcium 8.1 mg/dL (8.6-10.3) L 04/08/19 04:40 Magnesium 1.4 mg/dL (1.6-2.6) L 04/01/19 03:55 119 Units/L (34-104) H 03/23/19 02:57 AST 9 Units/L (13-39) L 04/04/19 03:52 0.05 ng/mL (< 0.04) H* 03/28/19 03:28 4.6 g/dL (6.4-8.9) L 04/04/19 03:52 2.9 g/dL (3.5-5.7) L 04/04/19 03:52 1.7 g/dL (2.4-3.5) L 04/04/19 03:52 Crossmatch See Detail 03/29/19 13:41 Consult Discharge Plan - Plan Additional Instructions: F/U in 2 weeks and maintain drain until F/U Referrals: Cameron Kirby MD [Partnered Physician] - 04/27/19 8:20 am Maisha Ruth CNP [Primary Care Provider] - Prescriptions: Omeprazole [PriLOSEC] 20 mg PO DAILY 30 Days #30 cap
--- NOTE | 2019-04-08 13:52 | Event Note ---
Date of Encounter: 04/08/19 Time of Encounter: 13:50 - Cardiology Event Note Attempted to see pateint, however patient is off the floor for procedure. Notes reviewed with carotid stenting. Regarding volume status, if dizziness has resolved post carotid stenting, recommend one time dose of IV lasix 20mg x1. BP improved today. Cardiology will continue to follow.
--- NOTE | 2019-04-08 16:28 | Invasive Diagnostic Lab Proc ---
Name: Faiht Mace Date of Study: 04/08/2019 Date: 1955 Ht: 163.0 in Medical Record#: [id number] Age: 64 Wt: 91 lb Gender: Female BSA: 1.96 Order #: [id number] BMI: 34.25 Physicians Performing MD: Mckay Pina MD, FACS Referring MD: Maisha Ruth, CERTIFIED CAREGIVER Referring MD: Staff Name Position Time In Billy Oswald RN Monitor Adriana Jimenes RN Accounting Consultant Les Murphy RT (R) Scrub Marley Moses RT (R) Scrub Indications Symptomatic Carotid Stenosis Procedures Performed PLACE CATH CAROTID/INOM ART STENT PLCMT, NONCORON INITIAL ANGIOGRAM, EXT UNILAT S&I Pre-Procedure Checklist Informed consent is complete signed and on chart. H&P is on chart. ID band is on and ID verified with patient. Patient NPO for procedure The procedure was described for the patient and questions were answered. Blood Pressure: 115/76 ECG is on chart. Plan of Care Patient will tolerate the procedure without complications. Adequate level of comfort will be maintained. Hemodynamics will remain stable Patient will recover from procedure without complications. Respiratory function will be maintained. Cardiac rhythm will remain stable. Patient temperature will be maintained. Patient and/or family have verbalized understanding of the procedure. Patient Education Intravenous Access Time IV Size Location DC'd Fluid/Drip Rate Units RN 09:35 Lt Arm Allergies Penicillins Vital Signs Time BP Systolic BP Diastolic HR O2 Sats ASA 09:35 AM 115 76 90 99 09:56 AM 09:56 AM 10:11 AM 10:26 AM 10:41 AM 10:56 AM 11:12 AM 10:32 AM 82 59 98 90 10:37 AM 79 58 97 93 10:42 AM 76 55 96 93 10:47 AM 79 56 96 93 10:52 AM 75 53 96 94 10:57 AM 73 55 94 93 11:02 AM 63 43 95 93 11:07 AM 73 44 94 94 11:12 AM 72 48 94 94 11:17 AM 77 47 95 94 09:59 AM 81 58 96 93 10:01 AM 81 56 95 95 10:02 AM 88 61 95 96 10:07 AM 82 62 98 94 10:12 AM 91 67 101 85 10:17 AM 81 56 98 93 10:22 AM 82 55 97 93 10:27 AM 80 55 97 93 11:24 AM 169 72 99 94 11:28 AM 156 66 97 94 11:32 AM 157 64 97 93 12:00 PM 113 77 94 93 12:15 PM 112 83 91 96 12:30 PM 110 80 92 96 12:47 PM 109 77 89 97 01:03 PM 110 72 87 97 01:15 PM 91 72 87 96 01:30 PM 100 66 87 97 01:45 PM 99 69 84 97 02:00 PM 121 71 85 97 02:15 PM 108 68 85 97 02:00 PM 02:40 PM 114 72 84 96 03:00 PM 113 86 73 95 03:08 PM 105 62 87 90 04:00 PM 116 66 88 95 Procedure Medications Time Medication Dose Units Method Route 10:07 AM Lidocaine 2% 10 ml Subcutaneous 10:57 AM Heparin 5000 units Intravenous 11:05 AM Versed 0.5 mg Intravenous 11:38 AM Plavix 75 mg Orally 11:20 AM Versed 0.5 mg Orally 11:42 AM Fentanyl 25 mcg Intravenous ASA Classification: CLASS IV- Severe systemic that is constant threat to patient's life Yajaira Score Preprocedure Postprocedure Activity 2- Moves 4 extremities sustained head lift Activity 2- Moves 4 extremities sustained head lift Circulation 2- SBP +/= 20 points of pre-anesthetic level Circulation 2- SBP +/= 20 points of pre-anesthetic level Consciousness 2- Awake and alert oriented x 3 Consciousness 2- Awake and alert oriented x 3 O2 Saturation 2- Able to maintain O2 satruation of 92% on room air O2 Saturation 2- Able to maintain O2 satruation of 92% on room air Respiratory 2- Able to deep breathe and cough well Respiratory 2- Able to deep breathe and cough well Total Score 10 Total Score 10 Contrast: Isovue 250- 150ml Contrast Amount: 58 ml Fluoro Dose: 161 mGy Activated Clotting Time Time Drawn ACT (sec) 01:03 PM 166 Procedure Log Time Note Entered By 09:53 AM Pt arrived to manager labor delivery 2 at 09:53 travis 09:53 AM Billy Oswald RN Position: Monitor Time in: 09:53 travis 09:54 AM Adriana Jimenes RN Position: Accounting Consultant Time in: 09:54 travis 09:54 AM Les Murphy RT (R) Position: Scrub Time in: 09:54 travis 09:55 AM Physician arrived 09:55 oparker 09:55 AM Carlos and jerson completed oparker 09:55 AM Sign in performed according to hospital policy. oparker 09:55 AM Time: :55 Is patient comfortable and pain free?: Yes oparker 09:56 AM ASA Class CLASS IV- Severe systemic that is constant threat to patient's life oparker 09:56 AM Time: 09:56LOC: 5 = Fully awake and oriented or at pre-proc level oparker 09:58 AM Hair removed from procedure site in holding area using clippers. Bilateral groin prepped with Chloraprep by Nanci Cisneros RT (R), then patient was draped. Skin intact. oparker 09:59 AM Marley Moses RT (R) Position: Scrub orientee Time in: :58 oparker 10:05 AM Time out perfomed oparker 10:07 AM 10:07 10 ml Lidocaine 2% to right groin Subcutaneous Given By Mckay Pina MD, FACS oparker 10:07 AM Patient charges- Angio tray pack, Pulse Oximetry and ACIST tubing and transducer oparker 10:07 AM Smart Needle utilized for vascular access at this time oparker 10:10 AM Time: :55 Is patient comfortable and pain free?: Yes oparker 10:11 AM Time: :56LOC: 4 = Oriented but drowsy oparker 10:13 AM Access obtained in the right femoral artery by percutaneous puncture. 5 Fr. 10 cm Terumo [place] sheath placed in right femoral artery oparker 10:13 AM 0.035 180cm J-wire wire utilized to assist with catheter placement oparker 10:14 AM 5Fr Short pigtail catheter inserted oparker 10:15 AM Aortic arch angiography performed in [facility] contrast injected 15/30 mls. oparker 10:16 AM Catheter removed oparker 10:17 AM 5Fr Pleitez 2 catheter inserted oparker 10:20 AM 3 ML of contrast injected oparker 10:20 AM 3 ML of contrast injected oparker 10:25 AM Catheter removed oparker 10:26 AM Time: 10:10 Is patient comfortable and pain free?: Yes oparker 10:26 AM Time: 10:11LOC: 4 = Oriented but drowsy oparker 10:27 AM Sheath exchanged for a 6 Fr 70 cm Flexor Check-Maco Performer sheath inserted into right femoral artery oparker 10:37 AM 5Fr Pleitez 2 catheter inserted oparker 10:41 AM Time: 10:26 Is patient comfortable and pain free?: Yes oparker 10:41 AM Time: 10:26LOC: 4 = Oriented but drowsy oparker 10:47 AM 4 ml of contrast injected oparker 10:49 AM 5Fr 100cm SIM 1 guide catheter exchanged oparker 10:56 AM Time: 10:41 Is patient comfortable and pain free?: Yes oparker 10:56 AM Wire removed oparker 10:56 AM Time: 10:41LOC: 4 = Oriented but drowsy oparker 10:57 AM 0.035 Amplatz Super Stiff 260cm guidewire advanced to brachial artery. oparker 10:57 AM 4 of contrast oparker 10:58 AM 10:57 Heparin 5000 units Intravenous by Adriana Jimenes RN oparmarylin 10:58 AM Guide catheter removed intact oparker 11:00 AM Inflation device oparker 11:01 AM 5 of contrast hand injected oparker 11:05 AM 11:05 Versed 0.5 mg Intravenous Given by Adriana Jimenes RN oparmarylin 11:11 AM Time: 10:56 Is patient comfortable and pain free?: Yes oparker 11:12 AM Time: 10:56LOC: 4 = Oriented but drowsy oparker 11:15 AM 8 mm x 37 mm Express Biliary SD stent placed in right subclavian artery Lot # [id number] oparker 11:21 AM Stent deployed @ 12 maggy for 60 seconds oparker 11:21 AM Stent delivery system removed intact oparker 11:25 AM Right common carotid angiography performed in [facility] contrast injected 10/25 mls. oparker 11:26 AM Procedure completed at 11:26 oparker 11:26 AM Isovue 250- 150ml,1 bottle(s) used. oparker 11:26 AM Time: 11:11 Is patient comfortable and pain free?: Yes oparker 11:27 AM Time: 11:12LOC: 4 = Oriented but drowsy oparker 11:27 AM Post Blood Pressure: 169/72 oparker 11:27 AM Post EKG: NSR oparker 11:27 AM Information taught: Carotid angiogram oparker 11:27 AM Guide wire removed intact oparker 11:28 AM Education needs: Procedure, Plan of Care, and Disease Process oparker 11:28 AM Learning barriers: None oparker 11:28 AM Education methods: Verbal oparker 11:28 AM Education evaluation: Able to repeat information oparker 11:28 AM Patient pain level 0/10 oparker 11:28 AM Fluoro Time: 24.4 minutes oparker 11:29 AM Isovue 250- 150ml contrast 60 ml given by Mckay Pina MD, FACS oparker 11:29 AM Radiation Dose 161.34 mGy oparker 11:35 AM Diagram Region: Cerebrovascular Arteries Anatomical Region: CV-Art80% Lesion in Proximal Left Subclavian Intervention done: 0 (1=yes, 0=no) oparker 11:36 AM Diagram Region: Cerebrovascular Arteries Anatomical Region: CV-Art99% Lesion in Proximal Right Common Carotid Intervention done: 1 (1=yes, 0=no) Bovine arch noted. oparker 11:38 AM ACT result 247 oparker 11:38 AM Time: 11:38 Plavix 75 mg Orally Given by Adriana Jimenes RN oparmarylin 11:20 AM 11:20 Versed 0.5 mg Intravenous Given by Adriana Jimenes RN oparker 11:45 AM Report given to roddy PHELPS. Pt taken to Holding room, Room # 4 11:45 oparker 11:45 AM Patient out of room 11:45 oparker 11:45 AM 11:42 Fentanyl 25 mcg Intravenous Given by Robert Easley RN oparmarylin 09:56 AM PVIStat 09:57 AM Vitals capture started with the following parameters, Patient=Adult, Interval=5 min, Initial Mtiqtmmw=088 mmHg, Deflation Rate=5 mmHg, Cuff placed on Left Arm 09:59 AM HR=96 bpm, NIBP=81/58 mmhg, SpO2=93.0 %, Resp=14 B/min, Comment=SR 10:01 AM NIBP STAT measurement started. 10:01 AM Recorded ECG: HR=95 Condition=Condition 1 10:01 AM HR=95 bpm, NIBP=81/56 mmhg, SpO2=95.0 %, Resp=14 B/min, Comment=SR 10:02 AM HR=95 bpm, NIBP=88/61 mmhg, SpO2=96.0 %, Resp=12 B/min, Comment=SR 10:06 AM Pressure channel 1 zeroed. 10:07 AM HR=98 bpm, NIBP=82/62 mmhg, SpO2=94.0 %, Resp=13 B/min, Comment=SR 10:12 AM HT=440 bpm, NIBP=91/67 mmhg, SpO2=85.0 %, Resp=12 B/min, Comment=SR 10:17 AM HR=98 bpm, NIBP=81/56 mmhg, SpO2=93.0 %, Resp=20 B/min, Comment=SR 10:22 AM HR=97 bpm, NIBP=82/55 mmhg, SpO2=93.0 %, Resp=13 B/min, Comment=SR 10:27 AM HR=97 bpm, NIBP=80/55 mmhg, SpO2=93.0 %, Resp=12 B/min, Comment=SR 10:32 AM HR=98 bpm, NIBP=82/59 mmhg, SpO2=90.0 %, Resp=17 B/min, Comment=SR 10:37 AM HR=97 bpm, NIBP=79/58 mmhg, SpO2=93.0 %, Resp=21 B/min, Comment=SR 10:42 AM HR=96 bpm, NIBP=76/55 mmhg, SpO2=93.0 %, Resp=18 B/min, Comment=SR 10:47 AM HR=96 bpm, NIBP=79/56 mmhg, SpO2=93.0 %, Resp=16 B/min, Comment=SR 10:52 AM HR=96 bpm, NIBP=75/53 mmhg, SpO2=94.0 %, Resp=15 B/min, Comment=SR 10:57 AM HR=94 bpm, NIBP=73/55 mmhg, SpO2=93.0 %, Resp=14 B/min, Comment=SR 11:02 AM HR=95 bpm, NIBP=63/43 mmhg, SpO2=93.0 %, Resp=17 B/min, Comment=SR 11:07 AM HR=94 bpm, NIBP=73/44 mmhg, SpO2=94.0 %, Resp=25 B/min, Comment=SR 11:12 AM HR=94 bpm, NIBP=72/48 mmhg, SpO2=94.0 %, Resp=17 B/min, Comment=SR 11:17 AM HR=95 bpm, NIBP=77/47 mmhg, SpO2=94.0 %, Resp=19 B/min, Comment=SR 11:24 AM HR=99 bpm, LQNR=653/72 mmhg, SpO2=94.0 %, Resp=18 B/min, Comment=SR 11:24 AM Recorded Pressure: Ao, HR=99, Condition=Condition 1 (Aorta) Ao 201/55/115 11:25 AM Recorded Pressure: Ao, HR=97, Condition=Condition 1 (Aorta) Ao 189/57/107 11:28 AM HR=97 bpm, JEFE=570/66 mmhg, SpO2=94.0 %, Resp=16 B/min, Comment=SR 11:32 AM HR=97 bpm, IZUD=882/64 mmhg, SpO2=93.0 %, Resp=23 B/min, Comment=SR 01:14 PM Right femoral arterial sheath removed per Tammi Ocampo RN. Manual pressure being held with Vpad at present. kwitte 01:29 PM Hemostasis obtained to right femoral artery. Dressing applied with opsite. Patient educated on post sheath pull. Patient verbalized understanding. kwitte 11:26 AM Sign Out completed: Radiation Dose 161.34 mGy Fluoro Time: 24.4 minutes. Isovue 250- 150ml contrast 58 ml given by Mckay Pina MD, FACS. Complications: None. Confirmed administered medications:Yes Sedation minutes 21 oparker 03:15 PM Patient voided large amount to bedpan mprater 04:19 PM Report given to shannon PHELPS. Pt taken to , Room # 5 16:18 kwitte 04:19 PM Delay to floor: Bed availability kwitte 04:19 PM Complications: None kwitte 04:19 PM Patient out of room 16:19 kwitte Hemodynamic Results Site Systolic Diastolic Mean Location Timing Ao 201 55 115 Ao 189 57 107 Peripheral Anatomy Vessel Pathology Lesion Stenosis Aneurysm Diameter Thrombus Type Left Subclavian Lesion 80 Right Subclavian Lesion 99 Right Common Carotid Lesion 100 Peripheral Intervention Anatomical Region:UE/Thoracic-Art Vessel Segment:Undefined Bookmark: [email or web address] Pathology Type:Lesion Pre-Stenosis:99 Post-Stenosis:0 Post Procedure Information Blood Pressure: 169/72 mmHg Rhythm: NSR Post procedure instructions given Report Given To: Nanci Worley Site Checks Time Location Status Staff Sheath In? Note 04/08/2019 11:30:00 AM Rt Groin No bleeding/ No Hematoma Les Murphy RT (R) 04/08/2019 12:00:00 PM Rt Groin No bleeding/ No Hematoma Tammi Ocampo RN 04/08/2019 12:15:00 PM Rt Groin No bleeding/ No Hematoma Tammi Ocampo RN 04/08/2019 12:30:00 PM Rt Groin No bleeding/ No Hematoma Tammi Ocampo RN 04/08/2019 12:47:00 PM Rt Groin No bleeding/ No Hematoma Tammi Ocampo RN 04/08/2019 1:03:00 PM Rt Groin No bleeding/ No Hematoma Tammi Ocampo RN 04/08/2019 1:15:00 PM Rt Groin No bleeding/ No Hematoma Roddy Emerson RN 04/08/2019 1:30:00 PM Rt Groin No bleeding/ No Hematoma Roddy Emerson RN 04/08/2019 1:45:00 PM Rt Groin No bleeding/ No Hematoma Roddy Emerson RN 04/08/2019 2:00:00 PM Rt Groin No bleeding/ No Hematoma Tammi Ocampo RN 04/08/2019 2:15:00 PM Rt Groin No bleeding/ No Hematoma Roddy Emerson RN 04/08/2019 2:00:00 PM Rt Groin No bleeding/ No Hematoma Roddy Emerson RN 04/08/2019 2:58:00 PM Rt Groin No bleeding/ No Hematoma Tammi Ocampo RN 04/08/2019 3:30:00 PM Rt Groin No bleeding/ No Hematoma Tammi Ocampo RN 04/08/2019 4:00:00 PM Rt Groin No bleeding/ No Hematoma Tammi Ocampo RN 04/08/2019 4:15:00 PM Rt Groin No bleeding/ No Hematoma Tammi Ocampo RN Pulses Time Site Pre Procedure Post Procedure Note Bilateral DP & PT 1+ 1+ 04/08/2019 12:00:00 PM Bilateral DP & PT 1+ 04/08/2019 12:15:00 PM Bilateral DP & PT 1+ 04/08/2019 12:30:00 PM Bilateral DP & PT 1+ 04/08/2019 12:47:00 PM Bilateral DP & PT 1+ 04/08/2019 1:30:00 PM Bilateral DP & PT 1+ 04/08/2019 2:00:00 PM Bilateral DP & PT 1+ 04/08/2019 2:40:00 PM Bilateral DP & PT 1+ 04/08/2019 2:40:00 PM Bilateral radial 2+ 04/08/2019 4:00:00 PM Bilateral DP & PT 1+ 04/08/2019 4:00:00 PM Bilateral radial 2+ Updated by Roddy Emerson RN on 04/08/2019 4:20:05 PM Roddy Emerson RN electronically signed on 04/08/2019 4:20:45 PM with status of Final
[2019-04-08] MEDS ORDERED: Furosemide 20 MG/2 ML VIAL IVP ONE (17:33)
--- NOTE | 2019-04-08 18:07 | Neurology Progress Note ---
Date of Encounter: 04/08/19 Time of Encounter: 18:05 Assessment and Plan (1) Seizure-like activity Current Visit: Yes Status: Ruled-out It is thought that these shaking activity likely nonepilepti events, or they can be related to myoclonic jerks that can be seen in patients with prolonged syncope due to cerebral hypoperfusion. No antiepileptic therapy will be recommended. 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 Patient had today arterial angiogram and stent angioplasty to the right common carotid artery per report. Furhter management would be upon vascular surgery. From neurology perspective, will sign off at this time. Please call us if any questions. Subjective Principal diagnosis: Dizziness and VBI Interval history: Patient is seen and examined. Patient is sitting in the bed and eating comfortably. Patient states that she has been feeling better and not as dizzy as she did yesterday. She however, has not stand up to walk yet. She came back from angiogram procedure with stent angioplasty to her right common carotid artery. Result is pending. Objective - Constitutional Vitals: Temp Pulse Resp BP Pulse Ox 98.5 F 91 16 125/85 96 04/08/19 17:00 04/08/19 17:00 04/08/19 17:00 04/08/19 17:00 04/08/19 17:00 - Neurological Exam Sensorimotor examination: Present: intact Motor Examination: Present: grossly full strength in all extremities Motor examination - right side: 5/5: deltoids, biceps, triceps, wrist flexion, wrist extension, legal nurse consultant, hip flexors, tibialis Anterior, quadriceps, toe extension (EHL), plantarflexion Motor examination - left side: 5/5: deltoids, biceps, triceps, wrist flexion, wrist extension, hip flexors, legal nurse consultant, quadriceps, tibialis Anterior, toe extension (EHL), plantarflexion Sensation intact: Present: intact Posture: Present: other (none) Reflex and gait examination: other (Gait is not assessed) Reflexes: Biceps: 1+, Triceps: 1+, Brachioradialis: 1+, Patella: 1+, Achilles: 1+ Mental Status Examination: Present: awake, alert, oriented to person, oriented to time, follows commands appropriately, answers questions appropriately, no agnosia, no aphasia, no aproxia Cranial nerve examination: Present: PERRL, EOMI, visual villalpando intact, corneal reflexes brisk symmetrically, sensory to face intact, mastication intact, no facial asymmetry is present, no dysarthria, hearing is intact symmetrically, soft palate elevates bilaterally upon phonation, gag reflex intact, flexes SCM and trapezius muscles symmetrically with full power, tongue protrudes midline Results - Laboratory Findings CBC and BMP: 04/08/19 04:40 04/08/19 04:40 Abnormal lab findings: Abnormal lab results WBC 11.4 K/mcL (4.3-11.1) H 03/28/19 03:28 RBC 2.76 M/mcL (3.82-4.97) L 04/08/19 04:40 Hgb 9.1 g/dL (11.5-15.4) L 04/08/19 04:40 Hct 27.5 % (35.3-44.9) L 04/08/19 04:40 MCV 101.0 fL (83.0-100.0) H 04/07/19 04:15 MCH 33.5 pg (28.0-33.3) H 03/28/19 03:28 MCHC 31.0 g/dL (31.6-35.5) L 03/27/19 08:04 RDW 15.8 % (11.5-14.5) H 04/08/19 04:40 Plt Count 129 K/mcL (140-400) L 03/30/19 04:40 MPV 9.2 fL (9.4-12.4) L 04/08/19 04:40 Immature Gran % 4.1 % (0-4) H 03/30/19 04:40 8.0 % (0-4) H 03/24/19 05:31 10.0 K/mcL (1.6-8.9) H 03/28/19 03:28 0.5 K/mcL (0.6-4.6) L 04/08/19 04:40 Nucleated RBCs/100 WBC 0.3 /100 WBC (0) H 04/05/19 04:36 Slight Decrease (Normal) L 03/29/19 04:30 Immature Plt Fraction 6.3 % (1.1-6.1) H 03/25/19 03:35 2+ (Not Present) A 03/29/19 04:30 Present (Not Present) A 03/29/19 04:30 1+ (Not Present) A 03/29/19 04:30 PT 12.3 Seconds (9.4-12.1) H 03/25/19 18:45 APTT 21.8 Seconds (26.0-36.0) L 03/23/19 02:57 Heparin Anti-Xa, Unfract 0.02 IU/mL (0.30-0.70) L 03/25/19 18:45 ABG pH 7.48 pH Units (7.32-7.45) H 04/02/19 07:57 ABG pCO2 55 mmHg (35-45) H 04/02/19 07:57 ABG pO2 70 mmHg (85-104) L 04/02/19 07:57 ABG HCO3 41 mEq/L (21-27) H 04/02/19 07:57 ABG Total CO2 43 mEq/L (20-26) H 04/02/19 07:57 ABG O2 Saturation 94 % (95-98) L 04/02/19 07:57 ABG Base Excess 16 mEq/L (-2 to 3) H 04/02/19 07:57 Sodium 135 mEq/L (136-145) L 03/23/19 02:57 Potassium 3.2 mEq/L (3.5-5.1) L 04/08/19 04:40 Chloride 97 mEq/L (98-107) L 04/04/19 03:52 Carbon Dioxide 36 mEq/L (23-29) H 04/08/19 04:40 BUN 7 mg/dL (8-23) L 03/23/19 02:57 0.43 mg/dL (0.60-1.20) L 04/08/19 04:40 47 (6-26) H 04/08/19 04:40 Glucose 189 mg/dL (70-105) H 04/08/19 04:40 POC Glucose 116 mg/dL (70-99) H 04/08/19 16:38 302 (280-300) H 04/05/19 04:36 Calcium 8.1 mg/dL (8.6-10.3) L 04/08/19 04:40 Magnesium 1.4 mg/dL (1.6-2.6) L 04/01/19 03:55 119 Units/L (34-104) H 03/23/19 02:57 AST 9 Units/L (13-39) L 04/04/19 03:52 0.05 ng/mL (< 0.04) H* 03/28/19 03:28 4.6 g/dL (6.4-8.9) L 04/04/19 03:52 2.9 g/dL (3.5-5.7) L 04/04/19 03:52 1.7 g/dL (2.4-3.5) L 04/04/19 03:52 Crossmatch See Detail 03/29/19 13:41 Consult Discharge Plan - Plan Additional Instructions: F/U in 2 weeks and maintain drain until F/U Referrals: Cameron Kirby MD [Partnered Physician] - 04/27/19 8:20 am Maisha Ruth CNP [Primary Care Provider] - Prescriptions: Omeprazole [PriLOSEC] 20 mg PO DAILY 30 Days #30 cap
[2019-04-08] MEDS: risperiDONE 1 MG TABLET PO SCH (20:28)
[2019-04-08] MEDS: lamoTRIgine 100 MG TABLET PO SCH (20:28)
[2019-04-09] MEDS: clonazePAM 1 MG TABLET PO PRN ×4 (04:34→20:23)
[2019-04-09] MEDS: *HR* HYDROcodone/Acet 5/325 mg TABLET PO PRN ×4 (04:34→20:23)
[2019-04-09 04:47] LABS: Eosinophils % 0.6 %; Hematocrit 28.6 % (35.3-44.9); Hemoglobin 9.1 g/dL (11.5-15.4); Immature Granulocytes % 1.3 % (0-4); Lymphocytes # 0.7 K/mcL (0.6-4.6); Lymphocytes % 15.4 %; Mean Corpuscular HGB Conc 31.8 g/dL (31.6-35.5); Mean Corpuscular Hemoglobin 32.2 pg (28.0-33.3); Mean Corpuscular Volume 101.1 fL (83.0-100.0); Mean Platelet Volume 8.8 fL (9.4-12.4); Monocytes # 0.3 K/mcL (0.0-1.3); Monocytes % 6.6 %; Neutrophils # 3.6 K/mcL (1.6-8.9); Platelet Count 217 K/mcL (140-400); Red Blood Count 2.83 M/mcL (3.82-4.97); Red Cell Distribution Width 16.3 % (11.5-14.5); Segmented Neutrophils % 76.1 %
[2019-04-09 05:05] LABS: BUN/Creatinine Ratio 34 (6-26); Blood Urea Nitrogen 17 mg/dL (8-23); Carbon Dioxide 35 mEq/L (23-29); Chloride 100 mEq/L (98-107); Glucose 67 mg/dL (70-105); Osmolality,Calculated 294 (280-300); Potassium 3.4 mEq/L (3.5-5.1); Sodium 142 mEq/L (136-145); eGFR For Non-African Americans > 60 (> 60)
[2019-04-09] MEDS: Insulin LISPRO 300 UNITS/3 ML VIAL SQ SCH ×4 (07:46→20:23)
[2019-04-09] MEDS: Furosemide 20 MG TABLET PO SCH (08:46)
[2019-04-09] MEDS: *HR* Amiodarone 200 MG TABLET PO SCH (08:46)
[2019-04-09] MEDS: Insulin DETEMIR 100 UNIT/ML X5UNITS SQ SCH ×2 (08:53→20:44)
--- NOTE | 2019-04-09 10:22 | Neurology Progress Note ---
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 Patient had stent placed to the proximal right subclavian artery yesterday She was seen in follow-up today and found to have left sided deficits including left arm drift, weakness of left arm and leg, leftward deviation of tongue and right pupillary asymmetry I suspect that she may have had an acute CVA The patient is refusing MRI of the brain however is okay with undergoing CT of the head for further evaluation Ordering stat CT now Would recommend holding off on resuming eliquis until CT results of been obtained Continue Plavix and statin medications now Frequent NIH assessments per protocol Given severe arterial occlusive disease patient is high risk for future neurovascular events; she will need aggressive risk factor modifications, and medical management. Vascular surgery seeing in consultation; recommendations appreciated (2) Seizure-like activity Current Visit: Yes Status: Ruled-out Seizure activity. Most likely to be nonepileptic events. Likely myoclonic jerks secondary to syncope. 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 Dizziness most likely caused by the vertebral basilar insufficiency. She underwent stenting to proximal right subclavian artery yesterday. I assume that she will likely need stenting of the left in the future; defer to vascular surgery. Subjective Principal diagnosis: Dizziness and VBI Interval history: Neurology originally consulted for seizure-like activity and dizziness. Seizures felt to be most likely convulsive syncope secondary to severe stenosis of the subclavian arteries. Patient underwent stenting to the proximal right subclavian artery yesterday. This morning, my follow-up assessment she was noted to have gross left-sided weakness, pupillary asymmetry is right greater than left and let her deviation of her tongue. These are new neurological def icits were not seen on prior exams. This is concerning for acute CVA. I discussed these findings with the patient who is declining MRI but is agreeable to CT of the head. Objective - Constitutional Vitals: Temp Pulse Resp BP Pulse Ox 97.6 F 102 18 112/51 96 04/09/19 07:36 04/09/19 07:36 04/09/19 07:36 04/09/19 07:36 04/09/19 07:36 Exam: Examination: General Examination: *CONSTITUTIONAL: Alert and oriented x3, no acute distress *GENERAL APPEARANCE OF PATIENT generally ill-appearing elderly female *EYES: pupils equal, round, reactive to light and accommodation, conjunctiva clear without masses or ulcerations, fundi normal. *CARDIOVASCULAR no peripheral edema, distal temperature normal, dorsalis pedis pulses normal. 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 Left deltoid, bicep, tricep, embedded linux engineer strength, hip flexors ,anterior tibialis, dorsoflexion of the foot 4/5; left arm and leg muscular strength weaker than right *MUSCLE TONE IN THE UPPER AND LOWER EXTREMITIES normal with adequate bulk and tone. No abnormal movements, fasciculations or atrophy identified. Neurological: *ORIENTATION to person, situation, time and place *RECURRENT AND REMOTE MEMORY intact *ATTENTION AND CONCENTRATION are normal *LANGUAGE FUNCTION no significant aphasia or dysarthia was noted. *FUND OF KNOWLEDGE aware of current events, past history, vocabulary *MENTAL attention span and concentration normal. *CN II optic fundi were normal, no papilledema noted. *CN III,IV, PUPILLARY ASYMMETRY, RIGHT GREATER THAN LEFT; RIGHT PUPIL 3 MM, LEFT PUPIL 2 MM, BILATERAL PUPILS REACT TO DIRECT AND CONSENSUAL RESPONSE, extraocular eye movements were full, no nystagmus and no ptosis noted. *CN V shows normal sensation and jaw opens symmetrically. *CN VII shows normal facial movement symmetrically, upper and lower bilaterally. *CN VIII shows no significant hearing loss on exam *CN IX,,X palate elevated symmetrically *CN XI normal strength in the sternocleidomastoid muscles, symmetrical shoulder shrugging. *CN XII D deviation of the tongue, gag reflex intact *SENSORY EXAMINATION light touch intact *REFLEXES: deep tendon reflexes were normal and symmetrical , grade 1/4 diffusely, no pathological reflexes were noted. *CEREBELLAR TESTING some mild dysmetria on the left arm with finger to nose, there is also some mild left arm drift *PAIN LEVEL 0/10 - Neurological Exam Sensorimotor examination: Present: intact Motor Examination: Present: grossly full strength in all extremities Motor examination - left side: 5/5: deltoids, biceps, triceps, wrist flexion, wrist extension, hip flexors, embedded linux engineer, quadriceps, tibialis Anterior, toe extension (EHL), plantarflexion Sensation intact: Present: intact Posture: Present: other (none) Reflex and gait examination: other (Gait is not assessed) Mental Status Examination: Present: awake, alert, oriented to person, oriented to time, follows commands appropriately, answers questions appropriately, no agnosia, no aphasia, no aproxia Cranial nerve examination: Present: PERRL, EOMI, visual villalpando intact, corneal reflexes brisk symmetrically, sensory to face intact, mastication intact, no facial asymmetry is present, no dysarthria, hearing is intact symmetrically, soft palate elevates bilaterally upon phonation, gag reflex intact, flexes SCM and trapezius muscles symmetrically with full power, tongue protrudes midline Results - Laboratory Findings CBC and BMP: 04/09/19 04:22 04/09/19 04:22 Abnormal lab findings: Abnormal lab results WBC 11.4 K/mcL (4.3-11.1) H 03/28/19 03:28 RBC 2.83 M/mcL (3.82-4.97) L 04/09/19 04:22 Hgb 9.1 g/dL (11.5-15.4) L 04/09/19 04:22 Hct 28.6 % (35.3-44.9) L 04/09/19 04:22 MCV 101.1 fL (83.0-100.0) H 04/09/19 04:22 MCH 33.5 pg (28.0-33.3) H 03/28/19 03:28 MCHC 31.0 g/dL (31.6-35.5) L 03/27/19 08:04 RDW 16.3 % (11.5-14.5) H 04/09/19 04:22 Plt Count 129 K/mcL (140-400) L 03/30/19 04:40 MPV 8.8 fL (9.4-12.4) L 04/09/19 04:22 Immature Gran % 4.1 % (0-4) H 03/30/19 04:40 8.0 % (0-4) H 03/24/19 05:31 10.0 K/mcL (1.6-8.9) H 03/28/19 03:28 0.5 K/mcL (0.6-4.6) L 04/08/19 04:40 Nucleated RBCs/100 WBC 0.3 /100 WBC (0) H 04/05/19 04:36 Slight Decrease (Normal) L 03/29/19 04:30 Immature Plt Fraction 6.3 % (1.1-6.1) H 03/25/19 03:35 2+ (Not Present) A 03/29/19 04:30 Present (Not Present) A 03/29/19 04:30 1+ (Not Present) A 03/29/19 04:30 PT 12.3 Seconds (9.4-12.1) H 03/25/19 18:45 APTT 21.8 Seconds (26.0-36.0) L 03/23/19 02:57 Heparin Anti-Xa, Unfract 0.02 IU/mL (0.30-0.70) L 03/25/19 18:45 ABG pH 7.48 pH Units (7.32-7.45) H 04/02/19 07:57 ABG pCO2 55 mmHg (35-45) H 04/02/19 07:57 ABG pO2 70 mmHg (85-104) L 04/02/19 07:57 ABG HCO3 41 mEq/L (21-27) H 04/02/19 07:57 ABG Total CO2 43 mEq/L (20-26) H 04/02/19 07:57 ABG O2 Saturation 94 % (95-98) L 04/02/19 07:57 ABG Base Excess 16 mEq/L (-2 to 3) H 04/02/19 07:57 Sodium 135 mEq/L (136-145) L 03/23/19 02:57 Potassium 3.4 mEq/L (3.5-5.1) L 04/09/19 04:22 Chloride 97 mEq/L (98-107) L 04/04/19 03:52 Carbon Dioxide 35 mEq/L (23-29) H 04/09/19 04:22 BUN 7 mg/dL (8-23) L 03/23/19 02:57 0.50 mg/dL (0.60-1.20) L 04/09/19 04:22 34 (6-26) H 04/09/19 04:22 Glucose 67 mg/dL (70-105) L 04/09/19 04:22 POC Glucose 248 mg/dL (70-99) H 04/08/19 19:45 302 (280-300) H 04/05/19 04:36 Calcium 8.0 mg/dL (8.6-10.3) L 04/09/19 04:22 Magnesium 1.4 mg/dL (1.6-2.6) L 04/01/19 03:55 119 Units/L (34-104) H 03/23/19 02:57 AST 9 Units/L (13-39) L 04/04/19 03:52 0.05 ng/mL (< 0.04) H* 03/28/19 03:28 4.6 g/dL (6.4-8.9) L 04/04/19 03:52 2.9 g/dL (3.5-5.7) L 04/04/19 03:52 1.7 g/dL (2.4-3.5) L 04/04/19 03:52 Crossmatch See Detail 03/29/19 13:41 Consult Discharge Plan - Plan Additional Instructions: F/U in 2 weeks and maintain drain until F/U Referrals: Cameron Kirby MD [Partnered Physician] - 04/27/19 8:20 am Maisha Ruth CNP [Primary Care Provider] - Mckay Pina MD [Partnered Physician] - 04/27/19 9:45 am Prescriptions: Omeprazole [PriLOSEC] 20 mg PO DAILY 30 Days #30 cap
[2019-04-09] MEDS: Ipratropium/Albuterol Neb 3 ML IH SCH ×2 (10:45→20:08)
[2019-04-09] MEDS: Budesonide/Formoterol 160/4.5 1 PUFF INH IH SCH ×2 (10:45→20:08)
--- NOTE | 2019-04-09 12:05 | Internal Med Progress Note ---
Hospitalist Progress Note - Encounter Date of Encounter: 04/09/19 Time of Encounter: 11:00 - Subjective Interval History: Patient is lying down in bed. She feels less dizzy today. Denies any chest pain or palpitations. No nausea or vomiting. No abdominal pain. No fevers or chills reported overnight. Per nursing staff, port patient was noted to have some weakness in her left upper extremity beginning last night. She presently denies any weakness. - Exam Vitals: Temp Pulse Resp BP Pulse Ox 97.8 F 105 18 91/59 97 04/09/19 11:27 04/09/19 11:27 04/09/19 11:27 04/09/19 11:27 04/09/19 11:27 Exam: General: Patient is alert, no acute distress, oriented x 3 ENT: Mucous membranes moist Respiratory: Good respiratory effort. Normal breath sounds. No wheezing or crackles. Cardiovascular: Regular rate and rhythm. s1 and s2 normal No clicks, rubs, gallops, or murmurs. No pedal edema Abdomen: Abdomen is soft, nontender. Bowel sounds are present Musculoskeletal: Spontaneously moving all extremities Skin: warm, dry, intact. Neuro: Alert oriented x 3 normal cranial nerves, strength normal in left upper extremity to my exam at this time, no facial droop noted. - Assessment and Plan (1) Acute CVA (cerebrovascular accident) Current Visit: Yes Status: Suspected Assessment and Plan: Suspected CVA with left-sided weakness were neuro examination earlier today. Symptoms appear to have resolved to my exam. Patient does not want MRI of the brain. We will follow up on CT of the head. Urology following. Patient is already on Plavix, Eliquis and Zocor. Holding with Eliquis still CT of the head done to rule out bleeding. (2) Orthostasis Current Visit: Yes Status: Acute Assessment and Plan: Concern for vertebrobasilar insufficiency causing dizziness. Underwent angioplasty yesterday with stent placement to the proximal right subclavian artery. Currently on Plavix, Pletal, Zocor. Eliquis on hold pending CT of the head. (3) Stenosis of both subclavian arteries Current Visit: Yes Status: Acute Assessment and Plan: Status post-balloon angioplasty and stent placement to right proximal subclavian artery with improved vertebral blood flow. Patient continues to have severe stenosis of the left subclavian artery. We will evaluate orthostatic vital signs. Vascular surgery following. (4) HFrEF (heart failure with reduced ejection fraction) Current Visit: Yes Status: Chronic Assessment and Plan: Pedal edema somewhat improved today. Continue oral Lasix. His blood pressure is tolerable, will give another dose of 20 mg IV Lasix today. (5) Acute cholecystitis Current Visit: Yes Status: Acute Assessment and Plan: Status post laparoscopic cholecystectomy. Doing well from a surgical standpoint. (6) Seizure-like activity Current Visit: Yes Status: Ruled-out Assessment and Plan: Possible convulsive syncope due to vertebrobasilar insufficiency. Neurology following. (7) Diabetes mellitus type 2 with complications Current Visit: Yes Status: Chronic Assessment and Plan: Continue current insulin regimen. Well controlled (8) Adrenal insufficiency Current Visit: Yes Status: Acute Assessment and Plan: Continue Decadron (9) Squamous cell carcinoma of lung, stage IV Current Visit: Yes Status: Chronic Assessment and Plan: Follow up with oncology as outpatient. (10) Pulmonary embolism Current Visit: Yes Status: Chronic Assessment and Plan: Will resume Eliquis a CT of the head is negative for bleed (11) A-fib Current Visit: Yes Status: Chronic Assessment and Plan: Heart rate slightly elevated today. If blood pressure tolerates, we will add low-dose beta ottoniel. (12) Sepsis Current Visit: Yes Status: Resolved (13) COPD (chronic obstructive pulmonary disease) Current Visit: Yes Status: Chronic Assessment and Plan: Continue bronchodilators as needed (14) Hypokalemia Current Visit: Yes Status: Acute Assessment and Plan: Continue oral supplementation. Potassium 3.4 today (15) CAD (coronary artery disease) Current Visit: Yes Status: Chronic Assessment and Plan: Continue Plavix, Zocor (16) DVT prophylaxis Current Visit: Yes Status: Acute Assessment and Plan: Patient on Eliquis pending head CT - Time Spent with Patient Total time spent is greater than 50% in coordination of care (as documented) at patient's floor/unit and/or counseling patient: Internal Medicine: Result - Labs CBC & Chem 7: 04/09/19 04:22 04/09/19 04:22 Labs: Short CBC 04/09/19 Range/Units 04:22 WBC 4.7 (4.3-11.1) K/mcL Hgb 9.1 L (11.5-15.4) g/dL Hct 28.6 L (35.3-44.9) % Plt Count 217 (140-400) K/mcL Neutrophils # 3.6 (1.6-8.9) K/mcL BMP 04/09/19 04:22 Sodium 142 Potassium 3.4 L Chloride 100 Carbon Dioxide 35 H BUN 17 Creatinine 0.50 L Glucose 67 L Calcium 8.0 L - ABG Interpretation ABG results: ABG ABG pH 7.48 pH Units (7.32-7.45) H 04/02/19 07:57 ABG pCO2 55 mmHg (35-45) H 04/02/19 07:57 ABG pO2 70 mmHg (85-104) L 04/02/19 07:57 ABG O2 Saturation 94 % (95-98) L 04/02/19 07:57 PT/INR, D-dimer PT 12.3 Seconds (9.4-12.1) H 03/25/19 18:45 - Impressions Impressions Head CT 04/09/19 09:18 IMPRESSION: 1. No acute intracranial abnormality. No hemorrhage. 2. 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 Results of this examination were verbally communicated to Dr. Martinez at 10:28 a.m. on 04/09/2019. RECOMMENDATIONS: If there remains a clinical concern for an acute infarct, further evaluation with MRI is recommended. D/ / 04/09/2019 10:36:32 Joel Oliver MD / [email or web address] Interpreting Provider: Joel Oliver MD Consult Discharge Plan - Plan Additional Instructions: F/U in 2 weeks and maintain drain until F/U Referrals: Cameron Kirby MD [Partnered Physician] - 04/27/19 8:20 am Maisha Ruth CNP [Primary Care Provider] - Mckay Pina MD [Partnered Physician] - 04/27/19 9:45 am Prescriptions: Omeprazole [PriLOSEC] 20 mg PO DAILY 30 Days #30 cap (4) HFrEF (heart failure with reduced ejection fraction) Qualifiers: Heart failure chronicity: chronic Qualified Code(s): I50.22 - Chronic systolic (congestive) heart failure (7) Diabetes mellitus type 2 with complications Qualifiers: Diabetes mellitus group home insulin use: without group home use Qualified Co de(s): E11.8 - Type 2 diabetes mellitus with unspecified complications (9) Squamous cell carcinoma of lung, stage IV Qualifiers: Laterality: unspecified laterality Qualified Code(s): C34.90 - Malignant neoplasm of unspecified part of unspecified bronchus or lung (10) Pulmonary embolism Qualifiers: Pulmonary embolism type: other Chronicity: chronic Acute cor pulmonale presence: without acute cor pulmonale Qualified Code(s): I27.82 - Chronic pulmonary embolism (11) A-fib Qualifiers: Atrial fibrillation type: paroxysmal Qualified Code(s): I48.0 - Paroxysmal atrial fibrillation (12) Sepsis Qualifiers: Sepsis type: sepsis due to unspecified organism Qualified Code(s): A41.9 - Sepsis, unspecified organism (13) COPD (chronic obstructive pulmonary disease) Qualifiers: Emphysema type: unspecified Qualified Code(s): J43.9 - Emphysema, unspecified (15) CAD (coronary artery disease) Qualifiers: Coronary Disease-Associated Artery/Lesion type: [place] artery [place] vs. transplanted heart: unspecified whether [place] or transplanted heart Associated angina: angina presence unspecified Qualified Code(s): I25.10 - Atherosclerotic heart disease of [place] coronary artery without angina pectoris
[2019-04-09] MEDS ORDERED: Furosemide 20 MG/2 ML VIAL IVP ONE (13:03)
--- NOTE | 2019-04-09 13:05 | Cardiology Progress Note ---
Date of Encounter: 04/09/19 Time of Encounter: 10:30 Assessment and Plan (1) CHF (congestive heart failure) Current Visit: No Status: Acute Per cardiology: -Known systolic CHF. -TTE with LVEF 45%, small to moderate pericardial effusion. LVEF has improved from previous TTE 01/2019 30-35%. -Not on BB, natalio inhibitor due to hypotension. -Volume overloaded on exam. On oral lasix. Was given one time dose of IV lasix yesterday, states symptoms improved. -Net negative 700ml. -Consider addtion of BB, natalio/arb prior to discharge if BP will allow. -Will given another IV dose of lasix today. -Will order BENEDICTO hose. Elevated extremities when dependent. If unable to place BENEDICTO hose, recommend bilateral natalio wraps. Qualifiers: Heart failure type: combined systolic and diastolic Heart failure chronicity: acute on chronic Qualified Code(s): I50.43 - Acute on chronic combined systolic (congestive) and diastolic (congestive) heart failure (2) Pericardial effusion Current Visit: No Status: Acute Per cardiology: -Small to moderate pericardial effusion noted on TTE, no evidence of tamponade. -Patient is hypotensive, however not tachycardic. No pulsus paradoxus noted. -Will continue to monitor. (3) Orthostasis Current Visit: Yes Status: Acute Per cardiology: -Reports symptoms of orthostasis. -vertebral artery occlusions noted. -Patient is s/p right subclavian stent. -Patient reports symptom improvement since subclavian stent placement. Discussion w patient/family: The assessment and plan as outlined above was discussed with the patient who expressed understanding and agreement. All questions were answered. Thank you for involving us in the care of your patient. Please call with any questions. Discussed and reviewed with . Subjective Principal diagnosis: Cholecystits Interval history: Patient resting in bed. Complains of leg edema, however reports is improved. Objective Vital Signs, Last 4 Hours Temp Pulse Resp BP Pulse Ox 04/09/19 11:27 97.8 F 105 18 91/59 97 General: Conversant, Other (Mild conversational dyspnea noted. ) HEENT: Atraumatic, Normocephaly, Mucus Membranes Moist Neck: No JVD, Normal carotid pulses Cardiac: Reg Rate and Rhythm, Normal S1 and S2, No Murmur Lungs: Other (Lung sounds diminished throughout. ) Neuro: Alert and responsive, No focal deficits noted Abdomen: Soft, Non-Tender Skin: No rashes noted on visualized skin Musculoskeletal: No Chest Wall Tenderness Extremities: No Clubbing, No Cyanosis, Normal Pulses, Other (2+ bilateral lower extremity pitting edema noted. ) Results 04/09/19 04:22 04/09/19 04:22 Lab Results Impressions Head CT 04/09/19 09:18 IMPRESSION: 1. No acute intracranial abnormality. No hemorrhage. 2. 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 Results of this examination were verbally communicated to Dr. Martinez at 10:28 a.m. on 04/09/2019. RECOMMENDATIONS: If there remains a clinical concern for an acute infarct, further evaluation with MRI is recommended. D/ / 04/09/2019 10:36:32 Joel Oliver MD / [email or web address] Interpreting Provider: Joel Oliver MD Active Medications Acetaminophen (Tylenol) 650 mg PO Q6HR PRN PRN Reason: Mild Pain Stop: 10/08/19 11:42 Hydrocodone Bitart/Acetaminophen ([place] 5-325 Mg) 1 tab PO Q4HR PRN PRN Reason: Moderate Pain Stop: 10/08/19 11:42 Last Admin: 04/09/19 08:46 Dose: 1 tab Documented by: Albuterol/Ipratropium (Duoneb) 3 ml IH [id number] PRN PRN Reason: Shortness Of Breath/Wheezing Stop: 09/24/19 14:22 Albuterol/Ipratropium (Duoneb) 3 ml IH [id number] [facility] Stop: 09/25/19 10:01 Last Admin: 04/09/19 10:45 Dose: 3 ml Documented by: Amiodarone HCl (Cordarone) 200 mg PO DAILY [facility] Stop: 09/26/19 13:46 Last Admin: 04/09/19 08:46 Dose: 200 mg Documented by: Apixaban (Eliquis) 5 mg PO BID [facility] Stop: 09/26/19 13:16 Last Admin: 04/07/19 08:59 Dose: 5 mg Documented by: Budesonide/Formoterol Fumarate (Symbicort) 2 puff IH BIDR [facility]; Protocol Stop: 09/22/19 22:01 Last Admin: 04/09/19 10:45 Dose: 2 puff Documented by: Cilostazol (Pletal) 100 mg PO BID [facility] Stop: 09/23/19 09:01 Last Admin: 04/09/19 08:46 Dose: 100 mg Documented by: Citalopram Hydrobromide (Celexa) 40 mg PO DAILY [facility] Stop: 09/26/19 13:16 Last Admin: 04/09/19 08:46 Dose: 40 mg Documented by: Clonazepam (Klonopin) 1 mg PO QID PRN PRN Reason: Anxiety Stop: 09/22/19 10:52 Last Admin: 04/09/19 08:46 Dose: 1 mg Documented by: Clopidogrel Bisulfate (Plavix) 75 mg PO DAILY [facility] Stop: 09/26/19 13:16 Last Admin: 04/09/19 08:46 Dose: 75 mg Documented by: Dexamethasone (Decadron) 6 mg PO DAILY [facility] Stop: 09/27/19 09:01 Last Admin: 04/09/19 08:45 Dose: 6 mg Documented by: Dextrose/Water (Dextrose 50% (Syg)) 25 ml IVP AD PRN PRN Reason: Hypoglycemia Stop: 09/21/19 20:01 Docusate Sodium (Colace) 100 mg PO BID PRN; Protocol PRN Reason: Constipation Stop: 09/27/19 21:33 Fludrocortisone Acetate (Florinef) 0.1 mg PO BID [facility] Stop: 09/26/19 13:46 Last Admin: 04/09/19 08:46 Dose: 0.1 mg Documented by: Furosemide (Lasix) 20 mg PO DAILY [facility] Stop: 10/01/19 09:01 Last Admin: 04/09/19 08:46 Dose: 20 mg Documented by: Furosemide (Lasix) 20 mg IVP ONCE ONE Stop: 04/09/19 13:04 Glucagon (Glucagen) 1 mg IM ONCE PRN PRN Reason: Hypoglycemia Stop: 09/21/19 20:01 Glucose (Gluctose) 15 gm PO ONCE PRN PRN Reason: Hypoglycemia Stop: 09/21/19 20:01 Glucose (Gluctose) 30 gm PO ONCE PRN PRN Reason: Hypoglycemia Stop: 09/21/19 20:01 Dextrose (Dextrose 5%) 1,000 mls @ 100 mls/hr IVC .Q10H PRN PRN Reason: HYPOGLYCEMIA Stop: 09/21/19 20:01 Insulin Detemir (Levemir) 10 unit SQ DAILY [facility] Stop: 10/08/19 09:01 Last Admin: 04/09/19 08:53 Dose: 10 unit Documented by: Insulin Detemir (Levemir) 30 unit SQ [facility] Stop: 10/07/19 21:01 Last Admin: 04/08/19 20:34 Dose: 30 unit Documented by: Insulin Human Lispro (Humalog) 0 units SQ HS [facility]; Protocol Stop: 09/25/19 21:01 Last Admin: 04/08/19 20:29 Dose: 4 units Documented by: Insulin Human Lispro (Humalog) 0 units SQ TIDAC [facility]; Protocol Stop: 09/25/19 08:46 Last Admin: 04/09/19 12:52 Dose: Not Given Documented by: Lamotrigine (Lamictal) 100 mg PO [facility] Stop: 09/22/19 21:01 Last Admin: 04/08/19 20:28 Dose: 100 mg Documented by: Lorazepam (Ativan) 1 mg IVP Q2HR PRN PRN Reason: Seizure Activity Stop: 10/05/19 19:16 Naloxone HCl (Narcan) 0.4 mg IVP Q2M PRN PRN Reason: SEE COMMENTS Stop: 09/21/19 19:57 Omeprazole (Prilosec) 20 mg PO DAILY@0630 [facility]; Protocol Stop: 09/30/19 06:31 Last Admin: 04/09/19 04:34 Dose: 20 mg Documented by: Ondansetron HCl (Zofran) 4 mg IVP Q8HR PRN; Protocol PRN Reason: Nausea And Vomiting Stop: 09/22/19 08:44 Potassium Chloride (Potassium Chloride) 20 meq PO BID [facility] Stop: 10/08/19 21:01 Last Admin: 04/09/19 08:45 Dose: 20 meq Documented by: Promethazine HCl (Phenergan) 12.5 mg IVP Q8HR PRN PRN Reason: Nausea And Vomiting Stop: 09/22/19 02:08 Risperidone (Risperdal) 1 mg PO [facility] Stop: 09/22/19 21:01 Last Admin: 04/08/19 20:28 Dose: 1 mg Documented by: Simvastatin (Zocor) 40 mg PO HS [facility]; Protocol Stop: 09/22/19 21:01 Last Admin: 04/08/19 20:28 Dose: 40 mg Documented by: Laboratory Tests 04/09/19 04/09/19 04:22 04:22 Hgb 9.1 L Creatinine 0.50 L - Imaging and Cardiology Chest Xray: report reviewed Echo: report reviewed - EKG Interpretation EKG results cardiology: other (Telemetry reviewed with average HR previous 12 hours noted to be 99, SR. PVCs and PACs noted.) Consult Discharge Plan - Plan Additional Instructions: F/U in 2 weeks and maintain drain until F/U Referrals: Cameron Kirby MD [Partnered Physician] - 04/27/19 8:20 am Maisha Ruth CNP [Primary Care Provider] - Mckay Pina MD [Partnered Physician] - 04/27/19 9:45 am Prescriptions: Omeprazole [PriLOSEC] 20 mg PO DAILY 30 Days #30 cap
--- NOTE | 2019-04-09 13:59 | Vascular/Endovas Progress Note ---
Date of Encounter: 04/09/19 Time of Encounter: 13:05 - Assessment and plan (1) Peripheral vascular disease Current Visit: No Status: Acute The patient is postoperative day #1 after right subclavian stent placement. She has a palpable right radial pulse. She denies any chest pain she denies any arm. She denies inguinal pain. She has no evidence of the hematoma. She will continue with daily Plavix. She will follow up with Dr. Pina in vascular [facility]. She may be discharged from a vascular surgery standpoint. (2) HLD (hyperlipidemia) Current Visit: No Status: Chronic The patient was counseled regarding atherosclerotic risk factor reduction. Qualifiers: Hyperlipidemia type: mixed hyperlipidemia Qualified Code(s): E78.2 - Mixed hyperlipidemia (3) CAD in [place] artery Current Visit: No Status: Chronic (4) Hypertension Current Visit: No Status: Acute Qualifiers: Hypertension type: essential hypertension Qualified Code(s): I10 - Essential (primary) hypertension - Subjective Interval history: The patient is without complaints overnight. She reports that her right arm feels better. She denies any chest pain or shortness of breath. Vital Signs, Last 4 Hours Temp Pulse Resp BP Pulse Ox 04/09/19 11:27 97.8 F 105 18 91/59 97 - Physical Examination General: Present: Conversant HEENT: Present: Pupils equal Cardiac: Present: Reg Rate and Rhythm, Normal S1 and S2 Lungs: Present: Normal Breath Sounds Vascular: Present: Normal capillary refill, Pulse, normal (Radial pulses normal bilaterally), Edema (Trace bilateral lower extremity edema), Surgical incisions (No hematoma in the right groin, right femoral pulse palpable). Absent: Cyanosis Abdomen: Present: Soft, Non-tender Skin: Present: No rashes noted on visualized skin Results 04/09/19 04:22 04/09/19 04:22 Lab Results, Last 24 hours 04/09/19 04/09/19 04:22 04:22 WBC 4.7 Hgb 9.1 L Hct 28.6 L Plt Count 217 Sodium 142 Potassium 3.4 L Chloride 100 Carbon Dioxide 35 H BUN 17 Creatinine 0.50 L Glucose 67 L Calcium 8.0 L Consult Discharge Plan - Plan Additional Instructions: F/U in 2 weeks and maintain drain until F/U Referrals: Cameron Kirby MD [Partnered Physician] - 04/27/19 8:20 am Maisha Ruth CNP [Primary Care Provider] - Mckay Pina MD [Partnered Physician] - 04/27/19 9:45 am Prescriptions: Omeprazole [PriLOSEC] 20 mg PO DAILY 30 Days #30 cap
[2019-04-09] MEDS: Apixaban 5 MG TABLET PO SCH (20:22)
[2019-04-09] MEDS: lamoTRIgine 100 MG TABLET PO SCH (20:22)
[2019-04-09] MEDS: risperiDONE 1 MG TABLET PO SCH (20:23)
[2019-04-10 03:59] LABS: Hematocrit 26.1 % (35.3-44.9); Hemoglobin 8.7 g/dL (11.5-15.4); Immature Granulocytes % 0.8 % (0-4); Lymphocytes # 0.4 K/mcL (0.6-4.6); Lymphocytes % 7.9 %; Mean Corpuscular HGB Conc 33.3 g/dL (31.6-35.5); Mean Corpuscular Hemoglobin 32.8 pg (28.0-33.3); Mean Corpuscular Volume 98.5 fL (83.0-100.0); Mean Platelet Volume 8.9 fL (9.4-12.4); Monocytes # 0.3 K/mcL (0.0-1.3); Monocytes % 5.6 %; Neutrophils # 4.6 K/mcL (1.6-8.9); Platelet Count 209 K/mcL (140-400); Red Blood Count 2.65 M/mcL (3.82-4.97); Red Cell Distribution Width 15.4 % (11.5-14.5); Segmented Neutrophils % 85.7 %
[2019-04-10 04:18] LABS: BUN/Creatinine Ratio 33 (6-26); Blood Urea Nitrogen 18 mg/dL (8-23); Calcium 8.3 mg/dL (8.6-10.3); Carbon Dioxide 37 mEq/L (23-29); Chloride 97 mEq/L (98-107); Glucose 179 mg/dL (70-105); Osmolality,Calculated 292 (280-300); Potassium 3.4 mEq/L (3.5-5.1); Sodium 138 mEq/L (136-145); eGFR For Non-African Americans > 60 (> 60)
[2019-04-10] MEDS: clonazePAM 1 MG TABLET PO PRN ×4 (06:19→20:40)
[2019-04-10] MEDS: *HR* HYDROcodone/Acet 5/325 mg TABLET PO PRN ×2 (06:19→14:39)
[2019-04-10] MEDS: Insulin LISPRO 300 UNITS/3 ML VIAL SQ SCH ×4 (07:38→20:46)
[2019-04-10] MEDS: Furosemide 20 MG TABLET PO SCH (08:28)
[2019-04-10] MEDS: Apixaban 5 MG TABLET PO SCH ×2 (08:28→20:40)
[2019-04-10] MEDS: *HR* Amiodarone 200 MG TABLET PO SCH (08:28)
[2019-04-10] MEDS: Insulin DETEMIR 100 UNIT/ML X5UNITS SQ SCH ×2 (08:29→20:46)
--- NOTE | 2019-04-10 08:44 | Cardiology Progress Note ---
Date of Encounter: 04/10/19 Time of Encounter: 08:30 Assessment and Plan (1) CHF (congestive heart failure) Current Visit: No Status: Acute Per cardiology: -Known systolic CHF. -TTE with LVEF 45%, small to moderate pericardial effusion. LVEF has improved from previous TTE 01/2019 30-35%. -Not on BB, natalio inhibitor due to hypotension. -Volume overloaded on exam. On oral lasix. Was given one time dose of IV lasix yesterday, states symptoms improved. -Net negative 700ml. -Consider addtion of BB, natalio/arb prior to discharge if BP will allow. -Will given another IV dose of lasix today. -Will order BENEDICTO hose. Elevated extremities when dependent. If unable to place BENEDICTO hose, recommend bilateral natalio wraps. Qualifiers: Heart failure type: combined systolic and diastolic Heart failure chronicity: acute on chronic Qualified Code(s): I50.43 - Acute on chronic combined systolic (congestive) and diastolic (congestive) heart failure (2) Pericardial effusion Current Visit: No Status: Acute Per cardiology: -Small to moderate pericardial effusion noted on TTE, no evidence of tamponade. -Patient is hypotensive, however not tachycardic. No pulsus paradoxus noted. -Will continue to monitor. (3) Orthostasis Current Visit: Yes Status: Acute Per cardiology: -Reports symptoms of orthostasis. -vertebral artery occlusions noted. -Patient is s/p right subclavian stent. -Patient reports symptom improvement since subclavian stent placement. Discussion w patient/family: The assessment and plan as outlined above was discussed with the patient who expressed understanding and agreement. All questions were answered. Thank you for involving us in the care of your patient. Please call with any questions. Discussed and reviewed with . Subjective Principal diagnosis: Cholecystits Interval history: Patient resting in bed. Complains of leg edema, however reports is improved. Objective Vital Signs, Last 4 Hours Temp Pulse Resp BP Pulse Ox 04/10/19 06:54 98.5 F 93 18 147/67 93 General: Conversant, No Apparent Distress HEENT: Atraumatic, Normocephaly, Mucus Membranes Moist Neck: No JVD, Normal carotid pulses Cardiac: Reg Rate and Rhythm, Normal S1 and S2, No Murmur Lungs: Other (Inspiratory wheezes noted throughout. ) Neuro: Alert and responsive, No focal deficits noted Abdomen: Soft, Non-Tender Skin: No rashes noted on visualized skin Musculoskeletal: No Chest Wall Tenderness Extremities: No Clubbing, No Cyanosis, Normal Pulses, Other (2+ bilateral lower extremity pitting edema noted. ) Results 04/10/19 03:42 04/10/19 03:42 Lab Results Impressions Head CT 04/09/19 09:18 IMPRESSION: 1. No acute intracranial abnormality. No hemorrhage. 2. 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 Results of this examination were verbally communicated to Dr. Martinez at 10:28 a.m. on 04/09/2019. RECOMMENDATIONS: If there remains a clinical concern for an acute infarct, further evaluation with MRI is recommended. D/ / 04/09/2019 10:36:32 Joel Oliver MD / [facility] Interpreting Provider: Joel Oliver MD Active Medications Acetaminophen (Tylenol) 650 mg PO Q6HR PRN PRN Reason: Mild Pain Stop: 10/08/19 11:42 Hydrocodone Bitart/Acetaminophen ([place] 5-325 Mg) 1 tab PO Q4HR PRN PRN Reason: Moderate Pain Stop: 10/08/19 11:42 Last Admin: 04/10/19 06:19 Dose: 1 tab Documented by: Albuterol/Ipratropium (Duoneb) 3 ml IH [id number] PRN PRN Reason: Shortness Of Breath/Wheezing Stop: 09/24/19 14:22 Albuterol/Ipratropium (Duoneb) 3 ml IH [id number] [facility] Stop: 09/25/19 10:01 Last Admin: 04/09/19 20:08 Dose: 3 ml Documented by: Amiodarone HCl (Cordarone) 200 mg PO DAILY [facility] Stop: 09/26/19 13:46 Last Admin: 04/10/19 08:28 Dose: 200 mg Documented by: Apixaban (Eliquis) 5 mg PO BID [facility] Stop: 09/26/19 13:16 Last Admin: 04/10/19 08:28 Dose: 5 mg Documented by: Budesonide/Formoterol Fumarate (Symbicort) 2 puff IH BIDR [facility]; Protocol Stop: 09/22/19 22:01 Last Admin: 04/09/19 20:08 Dose: 2 puff Documented by: Cilostazol (Pletal) 100 mg PO BID [facility] Stop: 09/23/19 09:01 Last Admin: 04/10/19 08:28 Dose: 100 mg Documented by: Citalopram Hydrobromide (Celexa) 40 mg PO DAILY [facility] Stop: 09/26/19 13:16 Last Admin: 04/10/19 08:27 Dose: 40 mg Documented by: Clonazepam (Klonopin) 1 mg PO QID PRN PRN Reason: Anxiety Stop: 09/22/19 10:52 Last Admin: 04/10/19 06:19 Dose: 1 mg Documented by: Clopidogrel Bisulfate (Plavix) 75 mg PO DAILY [facility] Stop: 09/26/19 13:16 Last Admin: 04/10/19 08:27 Dose: 75 mg Documented by: Dexamethasone (Decadron) 6 mg PO DAILY [facility] Stop: 09/27/19 09:01 Last Admin: 04/10/19 08:28 Dose: 6 mg Documented by: Dextrose/Water (Dextrose 50% (Syg)) 25 ml IVP AD PRN PRN Reason: Hypoglycemia Stop: 09/21/19 20:01 Docusate Sodium (Colace) 100 mg PO BID PRN; Protocol PRN Reason: Constipation Stop: 09/27/19 21:33 Fludrocortisone Acetate (Florinef) 0.1 mg PO BID [facility] Stop: 09/26/19 13:46 Last Admin: 04/10/19 08:28 Dose: 0.1 mg Documented by: Furosemide (Lasix) 20 mg PO DAILY [facility] Stop: 10/01/19 09:01 Last Admin: 04/10/19 08:28 Dose: 20 mg Documented by: Glucagon (Glucagen) 1 mg IM ONCE PRN PRN Reason: Hypoglycemia Stop: 09/21/19 20:01 Glucose (Gluctose) 15 gm PO ONCE PRN PRN Reason: Hypoglycemia Stop: 09/21/19 20:01 Glucose (Gluctose) 30 gm PO ONCE PRN PRN Reason: Hypoglycemia Stop: 09/21/19 20:01 Dextrose (Dextrose 5%) 1,000 mls @ 100 mls/hr IVC .Q10H PRN PRN Reason: HYPOGLYCEMIA Stop: 09/21/19 20:01 Insulin Detemir (Levemir) 10 unit SQ DAILY [facility] Stop: 10/08/19 09:01 Last Admin: 04/10/19 08:29 Dose: 10 unit Documented by: Insulin Detemir (Levemir) 30 unit SQ HS [facility] Stop: 10/07/19 21:01 Last Admin: 04/09/19 20:44 Dose: 30 unit Documented by: Insulin Human Lispro (Humalog) 0 units SQ HS [facility]; Protocol Stop: 09/25/19 21:01 Last Admin: 04/09/19 20:23 Dose: 5 units Documented by: Insulin Human Lispro (Humalog) 0 units SQ TIDAC [facility]; Protocol Stop: 09/25/19 08:46 Last Admin: 04/10/19 07:38 Dose: Not Given Documented by: Lamotrigine (Lamictal) 100 mg PO [facility] Stop: 09/22/19 21:01 Last Admin: 04/09/19 20:22 Dose: 100 mg Documented by: Lorazepam (Ativan) 1 mg IVP Q2HR PRN PRN Reason: Seizure Activity Stop: 10/05/19 19:16 Naloxone HCl (Narcan) 0.4 mg IVP Q2M PRN PRN Reason: SEE COMMENTS Stop: 09/21/19 19:57 Omeprazole (Prilosec) 20 mg PO DAILY@0630 [facility]; Protocol Stop: 09/30/19 06:31 Last Admin: 04/10/19 06:19 Dose: 20 mg Documented by: Ondansetron HCl (Zofran) 4 mg IVP Q8HR PRN; Protocol PRN Reason: Nausea And Vomiting Stop: 09/22/19 08:44 Oxycodone HCl (Oxycodone Oral Conc) 10 mg SL Q8HR PRN; Protocol PRN Reason: Severe Pain Stop: 10/09/19 18:15 Potassium Chloride (Potassium Chloride) 20 meq PO BID [facility] Stop: 10/08/19 21:01 Last Admin: 04/10/19 08:28 Dose: 20 meq Documented by: Promethazine HCl (Phenergan) 12.5 mg IVP Q8HR PRN PRN Reason: Nausea And Vomiting Stop: 09/22/19 02:08 Risperidone (Risperdal) 1 mg PO HS [facility] Stop: 09/22/19 21:01 Last Admin: 04/09/19 20:23 Dose: 1 mg Documented by: Simvastatin (Zocor) 40 mg PO HS [facility]; Protocol Stop: 09/22/19 21:01 Last Admin: 04/09/19 20:23 Dose: 40 mg Documented by: Laboratory Tests 04/10/19 04/10/19 03:42 03:42 Hgb 8.7 L Creatinine 0.54 L - Imaging and Cardiology Chest Xray: report reviewed Echo: report reviewed - EKG Interpretation EKG results cardiology: other (Telemetry reviewed with average HR previous 12 hours noted to be 99, SR. PVCs and PACs noted.) Consult Discharge Plan - Plan Additional Instructions: F/U in 2 weeks and maintain drain until F/U Referrals: Cameron Kirby MD [Partnered Physician] - 04/27/19 8:20 am Maisha Ruth CNP [Primary Care Provider] - Mckay Pina MD [Partnered Physician] - 04/27/19 9:45 am Prescriptions: Omeprazole [PriLOSEC] 20 mg PO DAILY 30 Days #30 cap
[2019-04-10] MEDS ORDERED: Furosemide 40 MG/4 ML VIAL IVP ONE (08:45)
[2019-04-10] MEDS: Budesonide/Formoterol 160/4.5 1 PUFF INH IH SCH ×2 (09:44→22:06)
[2019-04-10] MEDS: Ipratropium/Albuterol Neb 3 ML IH SCH ×2 (09:45→22:06)
--- NOTE | 2019-04-10 10:45 | Internal Med Progress Note ---
Hospitalist Progress Note - Encounter Date of Encounter: 04/10/19 Time of Encounter: 10:43 - Subjective Interval History: Patient is feeling much better overall. She does complain of back pain which is chronic for her and has been exacerbated because she has been lying down in bed pretty much all through her stay. She denies any dizziness today. Nursing staff tells me that she was able to get up to the bedside commode without any issues with assistance. - Exam Vitals: Temp Pulse Resp BP Pulse Ox 98.5 F 93 20 147/67 94 04/10/19 08:00 04/10/19 08:00 04/10/19 09:45 04/10/19 08:00 04/10/19 09:45 Exam: General: Patient is alert, mild distress, oriented x 3 ENT: Mucous membranes moist Respiratory: Decreased breath sounds at both bases. Mild wheezing bilaterally Cardiovascular: Regular rate and rhythm. s1 and s2 normal No clicks, rubs, gallops, or murmurs. Bilateral pitting pedal edema Abdomen: Abdomen is soft, nontender. Bowel sounds are present Musculoskeletal: Spontaneously moving all extremities Skin: warm, dry, intact. Neuro: Alert oriented x 3 normal cranial nerves, no focal deficits - Assessment and Plan (1) Stenosis of both subclavian arteries Current Visit: Yes Status: Acute Assessment and Plan: Status post right subclavian angioplasty and stent placement. Patient doing well postprocedure. Continue pletal and Plavix. Patient is also on Eliquis which was resumed yesterday. No focal weakness noted at this time. (2) Acute CVA (cerebrovascular accident) Current Visit: Yes Status: Ruled-out Assessment and Plan: No longer having any weakness in her left upper extremity at this time.No abnormalities. Possibly TIA symptoms that have now resolved. We will continue Plavix, statin. Patient has refused MRI. (3) Orthostasis Current Visit: Yes Status: Acute Assessment and Plan: Symptoms have now improved. Patient has improvement in vertebral blood flow after stenting of right subclavian artery. Continue supportive care. Physical therapy he did awaiting placement to skilled rehabilitation. BENEDICTO hose stockings. (4) HFrEF (heart failure with reduced ejection fraction) Current Visit: Yes Status: Chronic Assessment and Plan: Patient continues to have lower extremity swelling although this has significantly improved over the past couple of days. We will give additional dose of Lasix today. Cardiology following. Also start low-dose beta ottoniel today. (5) Acute cholecystitis Current Visit: Yes Status: Acute Assessment and Plan: Status post laparoscopic cholecystectomy earlier during this hospital stay. Doing well. (6) Seizure-like activity Current Visit: Yes Status: Ruled-out Assessment and Plan: Patient evaluated with EEG. No seizure-like activity noted at that time. Neurology recommendations followed. (7) Diabetes mellitus type 2 with complications Current Visit: Yes Status: Chronic Assessment and Plan: Blood sugars are well controlled at this time. (8) Adrenal insufficiency Current Visit: Yes Status: Acute Assessment and Plan: Continue Decadron (9) Squamous cell carcinoma of lung, stage IV Current Visit: Yes Status: Chronic Assessment and Plan: Follow up with oncology as outpatient. Patient is DNR comfort care. (10) Pulmonary embolism Current Visit: Yes Status: Chronic Assessment and Plan: Continue Eliquis (11) A-fib Current Visit: Yes Status: Chronic Assessment and Plan: Heart rate in the low 100s. We will start low-dose beta ottoniel per cardiology recommendations. (12) Sepsis Current Visit: Yes Status: Resolved (13) COPD (chronic obstructive pulmonary disease) Current Visit: Yes Status: Chronic Assessment and Plan: Continue bronchodilators as needed. (14) Hypokalemia Current Visit: Yes Status: Acute Assessment and Plan: Continue supplementation. We will give additional dose of KCL today as patient is getting IV Lasix. (15) CAD (coronary artery disease) Current Visit: Yes Status: Chronic Assessment and Plan: No chest pain. Continue home medications. Start low-dose beta ottoniel. (16) DVT prophylaxis Current Visit: Yes Status: Acute Assessment and Plan: Continue Eliquis - Time Spent with Patient Total time spent is greater than 50% in coordination of care (as documented) at patient's floor/unit and/or counseling patient: Internal Medicine: Result - Labs CBC & Chem 7: 04/10/19 03:42 04/10/19 03:42 Labs: Short CBC 04/10/19 Range/Units 03:42 WBC 5.3 (4.3-11.1) K/mcL Hgb 8.7 L (11.5-15.4) g/dL Hct 26.1 L (35.3-44.9) % Plt Count 209 (140-400) K/mcL Neutrophils # 4.6 (1.6-8.9) K/mcL BMP 04/10/19 03:42 Sodium 138 Potassium 3.4 L Chloride 97 L Carbon Dioxide 37 H BUN 18 Creatinine 0.54 L Glucose 179 H Calcium 8.3 L - ABG Interpretation ABG results: ABG ABG pH 7.48 pH Units (7.32-7.45) H 04/02/19 07:57 ABG pCO2 55 mmHg (35-45) H 04/02/19 07:57 ABG pO2 70 mmHg (85-104) L 04/02/19 07:57 ABG O2 Saturation 94 % (95-98) L 04/02/19 07:57 PT/INR, D-dimer PT 12.3 Seconds (9.4-12.1) H 03/25/19 18:45 - Impressions Impressions Head CT 04/09/19 09:18 IMPRESSION: 1. No acute intracranial abnormality. No hemorrhage. 2. 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 Results of this examination were verbally communicated to Dr. Martinez at 10:28 a.m. on 04/09/2019. RECOMMENDATIONS: If there remains a clinical concern for an acute infarct, further evaluation with MRI is recommended. D/ / 04/09/2019 10:36:32 Joel Oliver MD / [facility] Interpreting Provider: Joel Oliver MD Consult Discharge Plan - Plan Additional Instructions: F/U in 2 weeks and maintain drain until F/U Referrals: Cameron Kirby MD [Partnered Physician] - 04/27/19 8:20 am Maisha Ruth CNP [Primary Care Provider] - Mckay Pina MD [Partnered Physician] - 04/27/19 9:45 am Prescriptions: Omeprazole [PriLOSEC] 20 mg PO DAILY 30 Days #30 cap (4) HFrEF (heart failure with reduced ejection fraction) Qualifiers: Heart failure chronicity: acute on chronic Qualified Code(s): I50.23 - Acute on chronic systolic (congestive) heart failure (7) Diabetes mellitus type 2 with complications Qualifiers: Diabetes mellitus penitentiary insulin use: without penitentiary use Qualified Code(s): E11.8 - Type 2 diabetes mellitus with unspecified complications (9) Squamous cell carcinoma of lung, stage IV Qualifiers: Laterality: unspecified laterality Qualified Code(s): C34.90 - Malignant neoplasm of unspecified part of unspecified bronchus or lung (10) Pulmonary embolism Qualifiers: Pulmonary embolism type: other Chronicity: chronic Acute cor pulmonale presence: without acute cor pulmonale Qualified Code(s): I27.82 - Chronic pulmonary embolism (11) A-fib Qualifiers: Atrial fibrillation type: paroxysmal Qualified Code(s): I48.0 - Paroxysmal atrial fibrillation (12) Sepsis Qualifiers: Sepsis type: sepsis due to unspecified organism Qualified Code(s): A41.9 - Sepsis, unspecified organism (13) COPD (chronic obstructive pulmonary disease) Qualifiers: Emphysema type: unspecified Qualified Code(s): J43.9 - Emphysema, unspecified (15) CAD (coronary artery disease) Qualifiers: Coronary Disease-Associated Artery/Lesion type: [place] artery [place] vs. transplanted heart: unspecified whether [place] or transplanted heart Associated angina: angina presence unspecified Qualified Code(s): I25.10 - Atherosclerotic heart disease of [place] coronary artery without angina pectoris
[2019-04-10] MEDS: OXYCODONE Oral CONC 10 MG/0.5 ML ORAL.SYG SL PRN ×2 (11:14→20:40)
[2019-04-10] MEDS: risperiDONE 1 MG TABLET PO SCH (20:40)
[2019-04-10] MEDS: lamoTRIgine 100 MG TABLET PO SCH (20:42)
[2019-04-11] MEDS: Insulin LISPRO 300 UNITS/3 ML VIAL SQ SCH ×4 (08:09→21:16)
[2019-04-11] MEDS: *HR* Amiodarone 200 MG TABLET PO SCH (08:12)
[2019-04-11] MEDS: clonazePAM 1 MG TABLET PO PRN ×3 (08:12→19:55)
[2019-04-11] MEDS: Apixaban 5 MG TABLET PO SCH ×2 (08:12→19:48)
[2019-04-11] MEDS: Furosemide 20 MG TABLET PO SCH (08:12)
[2019-04-11] MEDS: OXYCODONE Oral CONC 10 MG/0.5 ML ORAL.SYG SL PRN ×2 (08:13→19:49)
[2019-04-11] MEDS: Insulin DETEMIR 100 UNIT/ML X5UNITS SQ SCH ×2 (08:15→21:15)
[2019-04-11] MEDS: Ipratropium/Albuterol Neb 3 ML IH SCH ×2 (09:23→21:07)
[2019-04-11] MEDS: Budesonide/Formoterol 160/4.5 1 PUFF INH IH SCH ×2 (09:38→21:07)
--- NOTE | 2019-04-11 09:51 | Cardiology Progress Note ---
Date of Encounter: 04/11/19 Time of Encounter: 08:15 Assessment and Plan (1) CHF (congestive heart failure) Current Visit: No Status: Acute Per cardiology: -Known systolic CHF. -TTE with LVEF 45%, small to moderate pericardial effusion. LVEF has improved from previous TTE 01/2019 30-35%. -On BB. -Volume overloaded on exam. On oral lasix. Was given one time dose of IV lasix yesterday, states symptoms improved. -Net negative 1930ml. -Will start BID dosing of IV lasix. -Consider addtion of natalio/arb prior to discharge if BP and renal function will allow. -Will order BENEDICTO hose. Elevated extremities when dependent. If unable to place BENEDICTO hose, recommend bilateral natalio wraps. Qualifiers: Heart failure type: combined systolic and diastolic Heart failure chronicity: acute on chronic Qualified Code(s): I50.43 - Acute on chronic combined systolic (congestive) and diastolic (congestive) heart failure (2) Pericardial effusion Current Visit: No Status: Acute Per cardiology: -Small to moderate pericardial effusion noted on TTE, no evidence of tamponade. -Patient is hypertensive, however not tachycardic. No pulsus paradoxus noted. -Will continue to monitor. (3) Orthostasis Current Visit: Yes Status: Resolved Per cardiology: -Reports symptoms of orthostasis. -vertebral artery occlusions noted. -Patient is s/p right subclavian stent. -Patient reports symptom improvement since subclavian stent placement. Discussion w patient/family: The assessment and plan as outlined above was discussed with the patient who expressed understanding and agreement. All questions were answered. Thank you for involving us in the care of your patient. Please call with any questions. Discussed and reviewed with . Subjective Principal diagnosis: Cholecystits Interval history: Patient resting in bed. Complains of leg edema, however reports is improved. Denies increased shortness of breath. Objective Vital Signs, Last 4 Hours Temp Pulse Resp BP Pulse Ox 04/11/19 09:44 14 92 04/11/19 08:01 97.7 F 88 18 172/73 95 General: Conversant, Other (Conversational dyspnea noted. ) HEENT: Atraumatic, Normocephaly, Mucus Membranes Moist Neck: No JVD, Normal carotid pulses Cardiac: Reg Rate and Rhythm, Normal S1 and S2, No Murmur Lungs: Other (Lung sounds coarse with expiratory wheezes noted throughout. ) Neuro: Alert and responsive, No focal deficits noted Abdomen: Soft, Non-Tender Skin: No rashes noted on visualized skin Musculoskeletal: No Chest Wall Tenderness Extremities: No Clubbing, No Cyanosis, Normal Pulses, Other (3+ bilateral lower extremity pitting edema noted. ) Results 04/10/19 03:42 04/10/19 03:42 Active Medications Acetaminophen (Tylenol) 650 mg PO Q6HR PRN PRN Reason: Mild Pain Stop: 10/08/19 11:42 Hydrocodone Bitart/Acetaminophen ([place] 5-325 Mg) 1 tab PO Q4HR PRN PRN Reason: Moderate Pain Stop: 10/08/19 11:42 Last Admin: 04/10/19 14:39 Dose: 1 tab Documented by: Albuterol/Ipratropium (Duoneb) 3 ml IH [id number] PRN PRN Reason: Shortness Of Breath/Wheezing Stop: 09/24/19 14:22 Albuterol/Ipratropium (Duoneb) 3 ml IH [id number] [facility] Stop: 09/25/19 10:01 Last Admin: 04/11/19 09:23 Dose: 3 ml Documented by: Amiodarone HCl (Cordarone) 200 mg PO DAILY [facility] Stop: 09/26/19 13:46 Last Admin: 04/11/19 08:12 Dose: 200 mg Documented by: Apixaban (Eliquis) 5 mg PO BID [facility] Stop: 09/26/19 13:16 Last Admin: 04/11/19 08:12 Dose: 5 mg Documented by: Budesonide/Formoterol Fumarate (Symbicort) 2 puff IH BIDR [facility]; Protocol Stop: 09/22/19 22:01 Last Admin: 04/11/19 09:38 Dose: 2 puff Documented by: Cilostazol (Pletal) 100 mg PO BID [facility] Stop: 09/23/19 09:01 Last Admin: 04/11/19 08:12 Dose: 100 mg Documented by: Citalopram Hydrobromide (Celexa) 40 mg PO DAILY [facility] Stop: 09/26/19 13:16 Last Admin: 04/11/19 08:12 Dose: 40 mg Documented by: Clonazepam (Klonopin) 1 mg PO QID PRN PRN Reason: Anxiety Stop: 09/22/19 10:52 Last Admin: 04/11/19 08:12 Dose: 1 mg Documented by: Clopidogrel Bisulfate (Plavix) 75 mg PO DAILY [facility] Stop: 09/26/19 13:16 Last Admin: 04/11/19 08:12 Dose: 75 mg Documented by: Dextrose/Water (Dextrose 50% (Syg)) 25 ml IVP AD PRN PRN Reason: Hypoglycemia Stop: 09/21/19 20:01 Docusate Sodium (Colace) 100 mg PO BID PRN; Protocol PRN Reason: Constipation Stop: 09/27/19 21:33 Furosemide (Lasix) 20 mg IVP BIDDIURETIC [facility] Stop: 10/11/19 10:01 Glucagon (Glucagen) 1 mg IM ONCE PRN PRN Reason: Hypoglycemia Stop: 09/21/19 20:01 Glucose (Gluctose) 15 gm PO ONCE PRN PRN Reason: Hypoglycemia Stop: 09/21/19 20:01 Glucose (Gluctose) 30 gm PO ONCE PRN PRN Reason: Hypoglycemia Stop: 09/21/19 20:01 Dextrose (Dextrose 5%) 1,000 mls @ 100 mls/hr IVC .Q10H PRN PRN Reason: HYPOGLYCEMIA Stop: 09/21/19 20:01 Insulin Detemir (Levemir) 10 unit SQ DAILY [facility] Stop: 10/08/19 09:01 Last Admin: 04/11/19 08:15 Dose: 10 unit Documented by: Insulin Detemir (Levemir) 30 unit SQ HS [facility] Stop: 10/07/19 21:01 Last Admin: 04/10/19 20:46 Dose: 30 unit Documented by: Insulin Human Lispro (Humalog) 0 units SQ HS [facility]; Protocol Stop: 09/25/19 21:01 Last Admin: 04/10/19 20:46 Dose: 5 units Documented by: Insulin Human Lispro (Humalog) 0 units SQ TIDAC [facility]; Protocol Stop: 09/25/19 08:46 Last Admin: 04/11/19 08:09 Dose: Not Given Documented by: Lamotrigine (Lamictal) 100 mg PO HS [facility] Stop: 09/22/19 21:01 Last Admin: 04/10/19 20:42 Dose: 100 mg Documented by: Lorazepam (Ativan) 1 mg IVP Q2HR PRN PRN Reason: Seizure Activity Stop: 10/05/19 19:16 Metoprolol Succinate (Toprol Xl) 25 mg PO DAILY [facility] Stop: 10/11/19 09:01 Naloxone HCl (Narcan) 0.4 mg IVP Q2M PRN PRN Reason: SEE COMMENTS Stop: 09/21/19 19:57 Omeprazole (Prilosec) 20 mg PO DAILY@0630 [facility]; Protocol Stop: 09/30/19 06:31 Last Admin: 04/11/19 05:21 Dose: 20 mg Documented by: Ondansetron HCl (Zofran) 4 mg IVP Q8HR PRN; Protocol PRN Reason: Nausea And Vomiting Stop: 09/22/19 08:44 Oxycodone HCl (Oxycodone Oral Conc) 10 mg SL Q8HR PRN; Protocol PRN Reason: Severe Pain Stop: 10/09/19 18:15 Last Admin: 04/11/19 08:13 Dose: 10 mg Documented by: Potassium Chloride (Potassium Chloride) 20 meq PO BID [facility] Stop: 10/08/19 21:01 Last Admin: 04/11/19 08:12 Dose: 20 meq Documented by: Promethazine HCl (Phenergan) 12.5 mg IVP Q8HR PRN PRN Reason: Nausea And Vomiting Stop: 09/22/19 02:08 Risperidone (Risperdal) 1 mg PO [facility] Stop: 09/22/19 21:01 Last Admin: 04/10/19 20:40 Dose: 1 mg Documented by: Simvastatin (Zocor) 40 mg PO [facility]; Protocol Stop: 09/22/19 21:01 Last Admin: 04/10/19 20:40 Dose: 40 mg Documented by: Laboratory Tests 04/10/19 04/10/19 03:42 03:42 Hgb 8.7 L Creatinine 0.54 L - Imaging and Cardiology Chest Xray: report reviewed Echo: report reviewed - EKG Interpretation EKG results cardiology: other (Telemetry reviewed with average HR previous 12 hours noted to be 86, SR. PVCs, PACs noted.) Consult Discharge Plan - Plan Additional Instructions: F/U in 2 weeks and maintain drain until F/U Referrals: Cameron Kirby MD [Partnered Physician] - 04/27/19 8:20 am Maisha Ruth CNP [Primary Care Provider] - Mckay Pina MD [Partnered Physician] - 04/27/19 9:45 am Prescriptions: Omeprazole [PriLOSEC] 20 mg PO DAILY 30 Days #30 cap
[2019-04-11] MEDS: Furosemide 20 MG/2 ML VIAL IVP SCH ×2 (11:30→17:54)
[2019-04-11] MEDS: Metoprolol XL (24 HR) Succ 25 MG TAB.ER.24H PO SCH (11:30)
[2019-04-11] MEDS: *HR* HYDROcodone/Acet 5/325 mg TABLET PO PRN ×2 (12:37→21:18)
--- NOTE | 2019-04-11 14:13 | Internal Med Progress Note ---
Hospitalist Progress Note - Encounter Date of Encounter: 04/11/19 Time of Encounter: 11:15 - Subjective Interval History: Patient lying down in bed. She denies any dizziness this morning. According to nursing staff she was complaining of some dizziness last night but it has since improved. She denies any chest pain or palpitations. She continues to have back pain that is poorly controlled despite her increased dose of oxycodone that she is receiving. She had good urine output yesterday after receiving Lasix. - Exam Vitals: Temp Pulse Resp BP Pulse Ox 97.9 F 100 18 126/49 95 04/11/19 10:55 04/11/19 10:55 04/11/19 10:55 04/11/19 10:55 04/11/19 10:55 Exam: General: Patient is alert, mild distress, oriented x 3 ENT: Mucous membranes moist Respiratory: Decreased breath sounds at both bases Cardiovascular: Regular rate and rhythm. s1 and s2 normal No clicks, rubs, gallops, or murmurs. Bilateral pitting pedal edema extending up to knees Abdomen: Abdomen is soft, nontender. Bowel sounds are present Musculoskeletal: Spontaneously moving all extremities Skin: warm, dry, intact. Neuro: Alert oriented x 3 normal cranial nerves, no focal deficits - Assessment and Plan (1) Stenosis of both subclavian arteries Current Visit: Yes Status: Acute (2) Acute CVA (cerebrovascular accident) Current Visit: Yes Status: Ruled-out (3) Orthostasis Current Visit: Yes Status: Resolved (4) HFrEF (heart failure with reduced ejection fraction) Current Visit: Yes Status: Chronic (5) Acute cholecystitis Current Visit: Yes Status: Acute (6) Seizure-like activity Current Visit: Yes Status: Ruled-out (7) Diabetes mellitus type 2 with complications Current Visit: Yes Status: Chronic (8) Adrenal insufficiency Current Visit: Yes Status: Acute (9) Squamous cell carcinoma of lung, stage IV Current Visit: Yes Status: Chronic (10) Pulmonary embolism Current Visit: Yes Status: Chronic (11) A-fib Current Visit: Yes Status: Chronic (12) Sepsis Current Visit: Yes Status: Resolved (13) COPD (chronic obstructive pulmonary disease) Current Visit: Yes Status: Chronic (14) Hypokalemia Current Visit: Yes Status: Acute (15) CAD (coronary artery disease) Current Visit: Yes Status: Chronic (16) DVT prophylaxis Current Visit: Yes Status: Acute - Summary of Assessment and Plan Summary of Assessment and Plan: Patient with acute on chronic congestive heart failure, diabetes, squamous cell lung cancer. Cardiology recommends increasing Lasix dose to twice daily. Will continue. Monitor urine output. We will increase potassium supplementation. Awaiting placement to skilled rehabilitation. Patient has undergone stent placement to right subclavian artery for stenosis. Continue Plavix, Pletal and statin. History of pulmonary embolism. Patient is on Eliquis. Patient is also on Decadron and Florinef for adrenal insufficiency. Blood sugars remain well controlled. For A. fib, patient has been switched to Toprol-XL per cardiology. Continue amiodarone. Anticoagulation with Eliquis. - Time Spent with Patient Total time spent is greater than 50% in coordination of care (as documented) at patient's floor/unit and/or counseling patient: Internal Medicine: Result - Labs CBC & Chem 7: 04/10/19 03:42 04/10/19 03:42 - ABG Interpretation ABG results: ABG ABG pH 7.48 pH Units (7.32-7.45) H 04/02/19 07:57 ABG pCO2 55 mmHg (35-45) H 04/02/19 07:57 ABG pO2 70 mmHg (85-104) L 04/02/19 07:57 ABG O2 Saturation 94 % (95-98) L 04/02/19 07:57 PT/INR, D-dimer PT 12.3 Seconds (9.4-12.1) H 03/25/19 18:45 Consult Discharge Plan - Plan Additional Instructions: F/U in 2 weeks and maintain drain until F/U Referrals: Cameron Kirby MD [Partnered Physician] - 04/27/19 8:20 am Maisha Ruth CNP [Primary Care Provider] - Mckay Pina MD [Partnered Physician] - 04/27/19 9:45 am Prescriptions: Omeprazole [PriLOSEC] 20 mg PO DAILY 30 Days #30 cap (4) HFrEF (heart failure with reduced ejection fraction) Qualifiers: Heart failure chronicity: acute on chronic Qualified Code(s): I50.23 - Acute on chronic systolic (congestive) heart failure (7) Diabetes mellitus type 2 with complications Qualifiers: Diabetes mellitus jail insulin use: without jail use Qualified Code(s): E11.8 - Type 2 diabetes mellitus with unspecified complications (9) Squamous cell carcinoma of lung, stage IV Qualifiers: Laterality: unspecified laterality Qualified Code(s): C34.90 - Malignant neoplasm of unspecified part of unspecified bronchus or lung (10) Pulmonary embolism Qualifiers: Pulmonary embolism type: other Chronicity: chronic Acute cor pulmonale presence: without acute cor pulmonale Qualified Code(s): I27.82 - Chronic pulmonary embolism (11) A-fib Qualifiers: Atrial fibrillation type: paroxysmal Qualified Code(s): I48.0 - Paroxysmal atrial fibrillation (12) Sepsis Qualifiers: Sepsis type: sepsis due to unspecified organism Qualified Code(s): A41.9 - Sepsis, unspecified organism (13) COPD (chronic obstructive pulmonary disease) Qualifiers: Emphysema type: unspecified Qualified Code(s): J43.9 - Emphysema, unspecified (15) CAD (coronary artery disease) Qualifiers: Coronary Disease-Associated Artery/Lesion type: [place] artery Resighini vs. tillman splanted heart: unspecified whether [place] or transplanted heart Associated angina: angina presence unspecified Qualified Code(s): I25.10 - Atherosclerotic heart disease of [place] coronary artery without angina pectoris
[2019-04-11] MEDS: lamoTRIgine 100 MG TABLET PO SCH (19:48)
[2019-04-11] MEDS: risperiDONE 1 MG TABLET PO SCH (19:48)
[2019-04-12] MEDS: *HR* HYDROcodone/Acet 5/325 mg TABLET PO PRN ×3 (03:33→14:39)
[2019-04-12 06:01] LABS: Hemoglobin 8.4 g/dL (11.5-15.4); Immature Granulocytes % 1.3 % (0-4); Lymphocytes # 0.7 K/mcL (0.6-4.6); Mean Corpuscular HGB Conc 32.3 g/dL (31.6-35.5); Mean Corpuscular Hemoglobin 32.7 pg (28.0-33.3); Mean Corpuscular Volume 101.2 fL (83.0-100.0); Mean Platelet Volume 8.9 fL (9.4-12.4); Monocytes # 0.4 K/mcL (0.0-1.3); Neutrophils # 4.3 K/mcL (1.6-8.9); Platelet Count 192 K/mcL (140-400); Red Blood Count 2.57 M/mcL (3.82-4.97); Red Cell Distribution Width 15.7 % (11.5-14.5); Segmented Neutrophils % 78.7 %
[2019-04-12 06:26] LABS: BUN/Creatinine Ratio 41 (6-26); Blood Urea Nitrogen 24 mg/dL (8-23); Carbon Dioxide 41 mEq/L (23-29); Chloride 96 mEq/L (98-107); Glucose 156 mg/dL (70-105); Potassium 3.9 mEq/L (3.5-5.1); Sodium 140 mEq/L (136-145); eGFR For Non-African Americans > 60 (> 60)
[2019-04-12 06:27] LABS: Calcium 8.8 mg/dL (8.6-10.3); Osmolality,Calculated 297 (280-300)
[2019-04-12] MEDS: Insulin LISPRO 300 UNITS/3 ML VIAL SQ SCH ×4 (08:00→20:47)
[2019-04-12] MEDS: *HR* Amiodarone 200 MG TABLET PO SCH (08:01)
[2019-04-12] MEDS: Apixaban 5 MG TABLET PO SCH ×2 (08:01→20:46)
[2019-04-12] MEDS: Metoprolol XL (24 HR) Succ 25 MG TAB.ER.24H PO SCH (08:01)
[2019-04-12] MEDS: Furosemide 20 MG/2 ML VIAL IVP SCH ×2 (08:01→16:10)
[2019-04-12] MEDS: Insulin DETEMIR 100 UNIT/ML X5UNITS SQ SCH ×2 (08:01→20:46)
[2019-04-12] MEDS: clonazePAM 1 MG TABLET PO PRN ×3 (08:11→20:46)
[2019-04-12] MEDS: Budesonide/Formoterol 160/4.5 1 PUFF INH IH SCH ×2 (10:43→19:36)
[2019-04-12] MEDS: Ipratropium/Albuterol Neb 3 ML IH SCH ×2 (10:44→19:36)
--- NOTE | 2019-04-12 11:13 | Cardiology Progress Note ---
Date of Encounter: 04/12/19 Time of Encounter: 08:30 Assessment and Plan (1) CHF (congestive heart failure) Current Visit: No Status: Acute Per cardiology: -Known systolic CHF. -TTE with LVEF 45%, small to moderate pericardial effusion. LVEF has improved from previous TTE 01/2019 30-35%. -On BB. -Volume overloaded on exam. On IV lasix. States symptoms improvement. -Net negative 1600ml. -Continue IV lasix. Patient is being cautiously diuresed with pericardial effusion. -Consider addtion of natalio/arb prior to discharge if BP and renal function will allow. -Continue BENEDICTO hose. -Strict i/os, fluid restriction, daily weights. Qualifiers: Heart failure type: combined systolic and diastolic Heart failure chronicity: acute on chronic Qualified Code(s): I50.43 - Acute on chronic combined systolic (congestive) and diastolic (congestive) heart failure (2) Pericardial effusion Current Visit: No Status: Acute Per cardiology: -Small to moderate pericardial effusion noted on TTE, no evidence of tamponade. -Patient is hypertensive, however not tachycardic. No pulsus paradoxus noted. -Will continue to monitor. Discussion w patient/family: The assessment and plan as outlined above was discussed with the patient who expressed understanding and agreement. All questions were answered. Thank you for involving us in the care of your patient. Please call with any questions. Discussed and reviewed with Subjective Principal diagnosis: Cholecystits Interval history: Patient sitting in bed. States symptoms improved today. Objective Vital Signs, Last 4 Hours Temp Pulse Resp BP Pulse Ox 04/12/19 10:44 16 96 04/12/19 08:00 97.6 F 94 18 172/82 94 04/12/19 07:40 97.6 F 94 18 172/82 94 General: Conversant, No Apparent Distress HEENT: Atraumatic, Normocephaly, Mucus Membranes Moist Neck: No JVD, Normal carotid pulses Cardiac: Reg Rate and Rhythm, Normal S1 and S2, No Murmur Lungs: Other (Lung sounds coarse throughout with expiratory wheezes noted. ) Neuro: Alert and responsive, No focal deficits noted Abdomen: Soft, Non-Tender Skin: No rashes noted on visualized skin Musculoskeletal: No Chest Wall Tenderness Extremities: No Clubbing, No Cyanosis, Normal Pulses, Other (2+ bilateral lower extremity pitting edema noted. ) Results 04/12/19 05:32 04/12/19 05:32 Lab Results Active Medications Acetaminophen (Tylenol) 650 mg PO Q6HR PRN PRN Reason: Mild Pain Stop: 10/08/19 11:42 Hydrocodone Bitart/Acetaminophen ([place] 5-325 Mg) 1 tab PO Q4HR PRN PRN Reason: Moderate Pain Stop: 10/08/19 11:42 Last Admin: 04/12/19 08:11 Dose: 1 tab Documented by: Albuterol/Ipratropium (Duoneb) 3 ml IH [id number] PRN PRN Reason: Shortness Of Breath/Wheezing Stop: 09/24/19 14:22 Albuterol/Ipratropium (Duoneb) 3 ml IH [id number] [facility] Stop: 09/25/19 10:01 Last Admin: 04/12/19 10:44 Dose: 3 ml Documented by: Amiodarone HCl (Cordarone) 200 mg PO DAILY [facility] Stop: 09/26/19 13:46 Last Admin: 04/12/19 08:01 Dose: 200 mg Documented by: Apixaban (Eliquis) 5 mg PO BID [facility] Stop: 09/26/19 13:16 Last Admin: 04/12/19 08:01 Dose: 5 mg Documented by: Budesonide/Formoterol Fumarate (Symbicort) 2 puff IH BIDR [facility]; Protocol Stop: 09/22/19 22:01 Last Admin: 04/12/19 10:43 Dose: 2 puff Documented by: Cilostazol (Pletal) 100 mg PO BID [facility] Stop: 09/23/19 09:01 Last Admin: 04/12/19 08:01 Dose: 100 mg Documented by: Citalopram Hydrobromide (Celexa) 40 mg PO DAILY [facility] Stop: 09/26/19 13:16 Last Admin: 04/12/19 08:01 Dose: 40 mg Documented by: Clonazepam (Klonopin) 1 mg PO QID PRN PRN Reason: Anxiety Stop: 09/22/19 10:52 Last Admin: 04/12/19 08:11 Dose: 1 mg Documented by: Clopidogrel Bisulfate (Plavix) 75 mg PO DAILY [facility] Stop: 09/26/19 13:16 Last Admin: 04/12/19 08:01 Dose: 75 mg Documented by: Dextrose/Water (Dextrose 50% (Syg)) 25 ml IVP AD PRN PRN Reason: Hypoglycemia Stop: 09/21/19 20:01 Docusate Sodium (Colace) 100 mg PO BID PRN; Protocol PRN Reason: Constipation Stop: 09/27/19 21:33 Furosemide (Lasix) 20 mg IVP BIDDIURETIC [facility] Stop: 10/11/19 10:01 Last Admin: 04/12/19 08:01 Dose: 20 mg Documented by: Glucagon (Glucagen) 1 mg IM ONCE PRN PRN Reason: Hypoglycemia Stop: 09/21/19 20:01 Glucose (Gluctose) 15 gm PO ONCE PRN PRN Reason: Hypoglycemia Stop: 09/21/19 20:01 Glucose (Gluctose) 30 gm PO ONCE PRN PRN Reason: Hypoglycemia Stop: 09/21/19 20:01 Dextrose (Dextrose 5%) 1,000 mls @ 100 mls/hr IVC .Q10H PRN PRN Reason: HYPOGLYCEMIA Stop: 09/21/19 20:01 Insulin Detemir (Levemir) 10 unit SQ DAILY [facility] Stop: 10/08/19 09:01 Last Admin: 04/12/19 08:01 Dose: 10 unit Documented by: Insulin Detemir (Levemir) 30 unit SQ [facility] Stop: 10/07/19 21:01 Last Admin: 04/11/19 21:15 Dose: 30 unit Documented by: Insulin Human Lispro (Humalog) 0 units SQ [facility]; Protocol Stop: 09/25/19 21:01 Last Admin: 04/11/19 21:16 Dose: 4 units Documented by: Insulin Human Lispro (Humalog) 0 units SQ TIDAC [facility]; Protocol Stop: 09/25/19 08:46 Last Admin: 04/12/19 08:00 Dose: Not Given Documented by: Lamotrigine (Lamictal) 100 mg PO HS [facility] Stop: 09/22/19 21:01 Last Admin: 04/11/19 19:48 Dose: 100 mg Documented by: Lorazepam (Ativan) 1 mg IVP Q2HR PRN PRN Reason: Seizure Activity Stop: 10/05/19 19:16 Metoprolol Succinate (Toprol Xl) 25 mg PO DAILY [facility] Stop: 10/11/19 09:01 Last Admin: 04/12/19 08:01 Dose: 25 mg Documented by: Naloxone HCl (Narcan) 0.4 mg IVP Q2M PRN PRN Reason: SEE COMMENTS Stop: 09/21/19 19:57 Omeprazole (Prilosec) 20 mg PO DAILY@0630 [facility]; Protocol Stop: 09/30/19 06:31 Last Admin: 04/12/19 05:20 Dose: 20 mg Documented by: Ondansetron HCl (Zofran) 4 mg IVP Q8HR PRN; Protocol PRN Reason: Nausea And Vomiting Stop: 09/22/19 08:44 Oxycodone HCl (Oxycodone Oral Conc) 10 mg SL Q8HR PRN; Protocol PRN Reason: Severe Pain Stop: 10/09/19 18:15 Last Admin: 04/11/19 19:49 Dose: 10 mg Documented by: Potassium Chloride (Potassium Chloride) 40 meq PO BID [facility] Stop: 10/11/19 21:01 Last Admin: 04/12/19 08:01 Dose: 40 meq Documented by: Promethazine HCl (Phenergan) 12.5 mg IVP Q8HR PRN PRN Reason: Nausea And Vomiting Stop: 09/22/19 02:08 Risperidone (Risperdal) 1 mg PO HS [facility] Stop: 09/22/19 21:01 Last Admin: 04/11/19 19:48 Dose: 1 mg Documented by: Simvastatin (Zocor) 40 mg PO HS [facility]; Protocol Stop: 09/22/19 21:01 Last Admin: 04/11/19 19:48 Dose: 40 mg Documented by: Laboratory Tests 04/12/19 04/12/19 05:32 05:32 Hgb 8.4 L Creatinine 0.58 L - Imaging and Cardiology Chest Xray: report reviewed Echo: report reviewed - EKG Interpretation EKG results cardiology: other (Telemetry reviewed with average HR previous 12 hours noted 86, SR. PVCs and PACs noted.) Consult Discharge Plan - Plan Additional Instructions: F/U in 2 weeks and maintain drain until F/U Referrals: Cameron Kirby MD [Partnered Physician] - 04/27/19 8:20 am Maisha Ruth CNP [Primary Care Provider] - Mckay Pina MD [Partnered Physician] - 04/27/19 9:45 am Prescriptions: Omeprazole [PriLOSEC] 20 mg PO DAILY 30 Days #30 cap
--- NOTE | 2019-04-12 13:53 | Internal Med Progress Note ---
Hospitalist Progress Note - Encounter Date of Encounter: 04/12/19 Time of Encounter: 10:00 - Subjective Interval History: Patient is awake and alert. Sitting up in chair. Complains of continued lower extremity swelling. Denies any chest pain. No palpitations. She denies any dizziness or lightheadedness. - Exam Vitals: Temp Pulse Resp BP Pulse Ox 97.7 F 84 18 122/50 95 04/12/19 11:36 04/12/19 11:36 04/12/19 11:36 04/12/19 11:36 04/12/19 11:36 Exam: General: Patient is alert, mild acute distress, oriented x 3 ENT: Mucous membranes moist Respiratory: Improved air entry bilaterally.. Cardiovascular: Regular rate and rhythm. s1 and s2 normal No clicks, rubs, gallops, or murmurs. Bilateral pedal edema. BENEDICTO hose stockings in place. Abdomen: Abdomen is soft, nontender. Bowel sounds are present Musculoskeletal: Spontaneously moving all extremities Skin: warm, dry, intact. Neuro: Alert oriented x 3 normal cranial nerves, no focal deficits - Assessment and Plan (1) Stenosis of both subclavian arteries Current Visit: Yes Status: Acute (2) Acute CVA (cerebrovascular accident) Current Visit: Yes Status: Ruled-out (3) Orthostasis Current Visit: Yes Status: Resolved (4) HFrEF (heart failure with reduced ejection fraction) Current Visit: Yes Status: Chronic (5) Acute cholecystitis Current Visit: Yes Status: Acute (6) Seizure-like activity Current Visit: Yes Status: Ruled-out (7) Diabetes mellitus type 2 with complications Current Visit: Yes Status: Chronic (8) Adrenal insufficiency Current Visit: Yes Status: Acute (9) Squamous cell carcinoma of lung, stage IV Current Visit: Yes Status: Chronic (10) Pulmonary embolism Current Visit: Yes Status: Chronic (11) A-fib Current Visit: Yes Status: Chronic (12) Sepsis Current Visit: Yes Status: Resolved (13) COPD (chronic obstructive pulmonary disease) Current Visit: Yes Status: Chronic (14) Hypokalemia Current Visit: Yes Status: Acute (15) CAD (coronary artery disease) Current Visit: Yes Status: Chronic (16) DVT prophylaxis Current Visit: Yes Status: Acute - Summary of Assessment and Plan Summary of Assessment and Plan: Patient with acute on chronic congestive heart failure, diabetes, squamous cell lung cancer and right subclavian artery stenosis status post stent placement. Continuing diuresis with IV Lasix. Patient developed metabolic alkalosis. We will most likely switch to oral Lasix tomorrow. Patient has had good response so far. Pedal edema is improving. Blood pressure was elevated this morning. It has improved after she received Toprol. Will continue to monitor closely. Hemoglobin levels remained stable at 8.4. Continue current insulin regimen. Diabetic diet. Patient is on Decadron and Florinef for adrenal insufficiency. Awaiting placement to skilled rehabilitation. Continue anticoagulation with Jessi yesy. Moderate risk for complications. - Time Spent with Patient Total time spent is greater than 50% in coordination of care (as documented) at patient's floor/unit and/or counseling patient: Internal Medicine: Result - Labs CBC & Chem 7: 04/12/19 05:32 04/12/19 05:32 Labs: Short CBC 04/12/19 Range/Units 05:32 WBC 5.5 (4.3-11.1) K/mcL Hgb 8.4 L (11.5-15.4) g/dL Hct 26.0 L (35.3-44.9) % Plt Count 192 (140-400) K/mcL Neutrophils # 4.3 (1.6-8.9) K/mcL BMP 04/12/19 05:32 Sodium 140 Potassium 3.9 Chloride 96 L Carbon Dioxide 41 H* BUN 24 H Creatinine 0.58 L Glucose 156 H Calcium 8.8 - ABG Interpretation ABG results: ABG ABG pH 7.48 pH Units (7.32-7.45) H 04/02/19 07:57 ABG pCO2 55 mmHg (35-45) H 04/02/19 07:57 ABG pO2 70 mmHg (85-104) L 04/02/19 07:57 ABG O2 Saturation 94 % (95-98) L 04/02/19 07:57 PT/INR, D-dimer PT 12.3 Seconds (9.4-12.1) H 03/25/19 18:45 Consult Discharge Plan - Plan Additional Instructions: F/U in 2 weeks and maintain drain until F/U Referrals: Cameron Kirby MD [Partnered Physician] - 04/27/19 8:20 am Maisha Ruth, KJ [Primary Care Provider] - Mckay Pina MD [Partnered Physician] - 04/27/19 9:45 am Prescriptions: Omeprazole [PriLOSEC] 20 mg PO DAILY 30 Days #30 cap (4) HFrEF (heart failure with reduced ejection fraction) Qualifiers: Heart failure chronicity: acute on chronic Qualified Code(s): I50.23 - Acute on chronic systolic (congestive) heart failure (7) Diabetes mellitus type 2 with complications Qualifiers: Diabetes mellitus object oriented programmer insulin use: without object oriented programmer use Qualified Code(s): E11.8 - Type 2 diabetes mellitus with unspecified complications (9) Squamous cell carcinoma of lung, stage IV Qualifiers: Laterality: unspecified laterality Qualified Code(s): C34.90 - Malignant neoplasm of unspecified part of unspecified bronchus or lung (10) Pulmonary embolism Qualifiers: Pulmonary embolism type: other Chronicity: chronic Acute cor pulmonale presence: without acute cor pulmonale Qualified Code(s): I27.82 - Chronic pulmonary embolism (11) A-fib Qualifiers: Atrial fibrillation type: paroxysmal Qualified Code(s): I48.0 - Paroxysmal atrial fibrillation (12) Sepsis Qualifiers: Sepsis type: sepsis due to unspecified organism Qualified Code(s): A41.9 - Sepsis, unspecified organism (13) COPD (chronic obstructive pulmonary disease) Qualifiers: Emphysema type: unspecified Qualified Code(s): J43.9 - Emphysema, unspecified (15) CAD (coronary artery disease) Qualifiers: Coronary Disease-Associated Artery/Lesion type: [place] artery [place] vs. transplanted heart: unspecified whether [place] or transplanted heart Associated angina: angina presence unspecified Qualified Code(s): I25.10 - Atherosclerotic heart disease of [place] coronary artery without angina pectoris
--- NOTE | 2019-04-12 15:21 | Event Note ---
Date of Encounter: 04/12/19 Time of Encounter: 15:19 - Cardiology Event Note Recommend continued gentle diuresis as tolerated. Monitor renal function and BP closely. Continue BB. Consider addition of natalio/arb prior to discharge if BP and renal function will allow. Cardiology will sign off. Re-consult if needed. Please call with any questions.
[2019-04-12] MEDS: risperiDONE 1 MG TABLET PO SCH (20:45)
[2019-04-12] MEDS: OXYCODONE Oral CONC 10 MG/0.5 ML ORAL.SYG SL PRN (20:46)
[2019-04-12] MEDS: lamoTRIgine 100 MG TABLET PO SCH (20:46)
[2019-04-13 04:05] LABS: Hematocrit 26.7 % (35.3-44.9); Hemoglobin 8.8 g/dL (11.5-15.4); Immature Granulocytes % 1.1 % (0-4); Lymphocytes # 0.3 K/mcL (0.6-4.6); Lymphocytes % 6.4 %; Mean Corpuscular Hemoglobin 33.1 pg (28.0-33.3); Mean Corpuscular Volume 100.4 fL (83.0-100.0); Mean Platelet Volume 8.9 fL (9.4-12.4); Monocytes # 0.1 K/mcL (0.0-1.3); Monocytes % 2.5 %; Neutrophils # 4.2 K/mcL (1.6-8.9); Nucleated Red Blood Cells 0.4 /100 WBC (0); Platelet Count 192 K/mcL (140-400); Red Blood Count 2.66 M/mcL (3.82-4.97); Red Cell Distribution Width 15.6 % (11.5-14.5)
[2019-04-13 04:22] LABS: BUN/Creatinine Ratio 52 (6-26); Blood Urea Nitrogen 25 mg/dL (8-23); Calcium 8.4 mg/dL (8.6-10.3); Carbon Dioxide 38 mEq/L (23-29); Chloride 95 mEq/L (98-107); Glucose 243 mg/dL (70-105); Osmolality,Calculated 302 (280-300); Potassium 4.2 mEq/L (3.5-5.1); Sodium 140 mEq/L (136-145); eGFR For Non-African Americans > 60 (> 60)
[2019-04-13] MEDS: Furosemide 20 MG/2 ML VIAL IVP SCH (08:31)
[2019-04-13] MEDS: clonazePAM 1 MG TABLET PO PRN ×3 (08:32→20:43)
[2019-04-13] MEDS: Apixaban 5 MG TABLET PO SCH ×2 (08:32→20:42)
[2019-04-13] MEDS: Metoprolol XL (24 HR) Succ 25 MG TAB.ER.24H PO SCH (08:32)
[2019-04-13] MEDS: *HR* HYDROcodone/Acet 5/325 mg TABLET PO PRN ×3 (08:32→20:43)
[2019-04-13] MEDS: *HR* Amiodarone 200 MG TABLET PO SCH (08:32)
--- NOTE | 2019-04-13 08:45 | Event Note ---
Date of Encounter: 04/13/19 Time of Encounter: 08:44 Patient is seen on 2 N. She is up in chair eating. She has no new complaints. She states her dizziness is significantly improved following angioplasty of right subclavian artery. The angiographic findings and procedure were again reviewed with the patient. All questions were answered. Patient go to [facility] near future per medical service. Patient may follow-up in vascular surgery clinic in 1 month.
[2019-04-13] MEDS: Insulin DETEMIR 100 UNIT/ML X5UNITS SQ SCH ×2 (08:46→20:43)
[2019-04-13] MEDS: Insulin LISPRO 300 UNITS/3 ML VIAL SQ SCH ×4 (08:47→20:43)
[2019-04-13] MEDS: Ipratropium/Albuterol Neb 3 ML IH SCH ×2 (11:27→22:06)
[2019-04-13] MEDS: Budesonide/Formoterol 160/4.5 1 PUFF INH IH SCH ×2 (11:27→22:06)
--- NOTE | 2019-04-13 15:36 | Internal Med Progress Note ---
Hospitalist Progress Note - Encounter Date of Encounter: 04/13/19 Time of Encounter: 15:34 - Subjective Interval History: Patient sitting up at this time. She just worked with physical therapy and felt dizzy and was made to sit down. She is now doing better. She denies any chest pain or palpitations. No nausea or vomiting. Blood pressure has been elevated today. Continues to have good urine output. - Exam Vitals: Temp Pulse Resp BP Pulse Ox 97.8 F 100 18 185/82 94 04/13/19 11:54 04/13/19 11:54 04/13/19 11:54 04/13/19 11:54 04/13/19 11:54 Exam: General: Patient is alert, mild distress, oriented x 3 ENT: Mucous membranes moist Respiratory: Improved air entry bilaterally Cardiovascular: Regular rate and rhythm. s1 and s2 normal No clicks, rubs, ga llops, or murmurs. Bilateral pedal edema. Improving Abdomen: Abdomen is soft, nontender. Bowel sounds are present Musculoskeletal: Spontaneously moving all extremities Skin: warm, dry, intact. Neuro: Alert oriented x 3 normal cranial nerves, no focal deficits - Assessment and Plan (1) Stenosis of both subclavian arteries Current Visit: Yes Status: Acute Assessment and Plan: Patient has stenosis of bilateral subclavian arteries. Angioplasty and stent placement done to right subclavian artery. Left subclavian artery and will need to be worked Donatelli today per vascular surgery if patient continues to recover. This is likely cause of her current vertebrobasilar insufficiency ca using dizziness. Will continue with physical therapy. Continue Plavix, statin. Moderate risk for complications. Awaiting placement to skilled rehabilitation. (2) Orthostasis Current Visit: Yes Status: Acute Assessment and Plan: Due to vertebrobasilar insufficiency. Continue Florinef. (3) HFrEF (heart failure with reduced ejection fraction) Current Visit: Yes Status: Chronic Assessment and Plan: Has responded well to intravenous diuretics. Lower extremity swelling improving. We will transition to oral diuretics. (4) Acute cholecystitis Current Visit: Yes Status: Acute Assessment and Plan: Status post laparoscopic cholecystectomy. Doing well from surgical standpoint. No complications. Will arrange for follow-up after discharge with surgery (5) Seizure-like activity Current Visit: Yes Status: Ruled-out (6) Diabetes mellitus type 2 with complications Current Visit: Yes Status: Chronic Assessment and Plan: Blood glucose 119 this morning. We will continue current insulin regimen. (7) Adrenal insufficiency Current Visit: Yes Status: Acute Assessment and Plan: Continue Decadron and Florinef. (8) Squamous cell carcinoma of lung, stage IV Current Visit: Yes Status: Chronic Assessment and Plan: Follow up with oncology after discharge (9) Pulmonary embolism Current Visit: Yes Status: Chronic Assessment and Plan: Continue Eliquis (10) A-fib Current Visit: Yes Status: Chronic Assessment and Plan: Heart rate 100 this morning. Continue metoprolol. Anticoagulation with Eliquis. (11) Sepsis Current Visit: Yes Status: Resolved (12) COPD (chronic obstructive pulmonary disease) Current Visit: Yes Status: Chronic Assessment and Plan: Not in acute exacerbation. Continue bronchodilators as needed (13) Hypokalemia Current Visit: Yes Status: Acute (14) CAD (coronary artery disease) Current Visit: Yes Status: Chronic Assessment and Plan: Continue metoprolol, statin and Plavix (15) DVT prophylaxis Current Visit: Yes Status: Acute (16) Hypertension Current Visit: Yes Status: Acute Assessment and Plan: Blood pressure again elevated today. We will continue to monitor. Per cardiology recommendations will also start low-dose ARB. DVT Prophylaxis: on eliquis - Time Spent with Patient Total time spent is greater than 50% in coordination of care (as documented) at patient's floor/unit and/or counseling patient: Internal Medicine: Result - Labs CBC & Chem 7: 04/13/19 03:37 04/13/19 03:37 Labs: Short CBC 04/13/19 Range/Units 03:37 WBC 4.7 (4.3-11.1) K/mcL Hgb 8.8 L (11.5-15.4) g/dL Hct 26.7 L (35.3-44.9) % Plt Count 192 (140-400) K/mcL Neutrophils # 4.2 (1.6-8.9) K/mcL BMP 04/13/19 03:37 Sodium 140 Potassium 4.2 Chloride 95 L Carbon Dioxide 38 H BUN 25 H Creatinine 0.48 L Glucose 243 H Calcium 8.4 L - ABG Interpretation ABG results: ABG ABG pH 7.48 pH Units (7.32-7.45) H 04/02/19 07:57 ABG pCO2 55 mmHg (35-45) H 04/02/19 07:57 ABG pO2 70 mmHg (85-104) L 04/02/19 07:57 ABG O2 Saturation 94 % (95-98) L 04/02/19 07:57 PT/INR, D-dimer PT 12.3 Seconds (9.4-12.1) H 03/25/19 18:45 Consult Discharge Plan - Plan Additional Instructions: F/U in 2 weeks and maintain drain until F/U Referrals: Cameron Kirby MD [Partnered Physician] - 04/27/19 8:20 am Maisha Ruth CNP [Primary Care Provider] - Mckay Pina MD [Partnered Physician] - 05/19/19 9:10 am (This appointment is in [place]) Prescriptions: Omeprazole [PriLOSEC] 20 mg PO DAILY 30 Days #30 cap (3) HFrEF (heart failure with reduced ejection fraction) Qualifiers: Heart failure chronicity: acute on chronic Qualified Code(s): I50.23 - Acute on chronic systolic (congestive) heart failure (6) Diabetes mellitus type 2 with complications Qualifiers: Diabetes mellitus intermediate designer insulin use: without intermediate designer use Qualified Code(s): E11.8 - Type 2 diabetes mellitus with unspecified complications (8) Squamous cell carcinoma of lung, stage IV Qualifiers: Laterality: unspecified laterality Qualified Code(s): C34.90 - Malignant neoplasm of unspecified part of unspecified bronchus or lung (9) Pulmonary embolism Qualifiers: Pulmonary embolism type: other Chronicity: chronic Acute cor pulmonale presence: without acute cor pulmonale Qualified Code(s): I27.82 - Chronic pulmonary embolism (10) A-fib Qualifiers: Atrial fibrillation type: paroxysmal Qualified Code(s): I48.0 - Paroxysmal atrial fibrillation (11) Sepsis Qualifiers: Sepsis type: sepsis due to unspecified organism Qualified Code(s): A41.9 - Sepsis, unspecified organism (12) COPD (chronic obstructive pulmonary disease) Qualifiers: Emphysema type: unspecified Qualified Code(s): J43.9 - Emphysema, unspecified (14) CAD (coronary artery disease) Qualifiers: Coronary Disease-Associated Artery/Lesion type: [place] artery [place] vs. transplanted heart: unspecified whether [place] or transplanted heart Associated angina: angina presence unspecified Qualified Code(s): I25.10 - Atherosclerotic heart disease of [place] coronary artery without angina pectoris (16) Hypertension Qualifiers: Hypertension type: essential hypertension Qualified Code(s): I10 - Essential (primary) hypertension
[2019-04-13] MEDS: Furosemide 40 MG TABLET PO SCH (16:10)
[2019-04-13] MEDS: risperiDONE 1 MG TABLET PO SCH (20:42)
[2019-04-13] MEDS: lamoTRIgine 100 MG TABLET PO SCH (20:42)
[2019-04-14] MEDS: Insulin LISPRO 300 UNITS/3 ML VIAL SQ SCH ×4 (08:25→20:16)
[2019-04-14] MEDS: Insulin DETEMIR 100 UNIT/ML X5UNITS SQ SCH ×2 (08:54→20:16)
[2019-04-14] MEDS: Metoprolol XL (24 HR) Succ 25 MG TAB.ER.24H PO SCH (08:54)
[2019-04-14] MEDS: *HR* Amiodarone 200 MG TABLET PO SCH (08:54)
[2019-04-14] MEDS: clonazePAM 1 MG TABLET PO PRN ×3 (08:55→20:15)
[2019-04-14] MEDS: Furosemide 40 MG TABLET PO SCH ×2 (08:55→18:09)
[2019-04-14] MEDS: OXYCODONE Oral CONC 10 MG/0.5 ML ORAL.SYG SL PRN (08:55)
[2019-04-14] MEDS: Apixaban 5 MG TABLET PO SCH ×2 (08:55→20:16)
[2019-04-14] MEDS: Budesonide/Formoterol 160/4.5 1 PUFF INH IH SCH ×2 (10:59→21:52)
[2019-04-14] MEDS: Ipratropium/Albuterol Neb 3 ML IH SCH ×2 (10:59→21:52)
[2019-04-14] MEDS: *HR* HYDROcodone/Acet 5/325 mg TABLET PO PRN ×2 (15:01→22:22)
--- NOTE | 2019-04-14 19:09 | Internal Med Progress Note ---
Hospitalist Progress Note - Encounter Date of Encounter: 04/14/19 Time of Encounter: 11:00 - Subjective Interval History: Patient with no issues or complaints overnight Awaiting placement to care home facility - Exam Vitals: Temp Pulse Resp BP Pulse Ox 98.1 F 95 18 127/63 95 04/14/19 19:00 04/14/19 19:00 04/14/19 19:00 04/14/19 19:00 04/14/19 19:00 Exam: Gen.: Nonacute distress, alert and oriented 3 ENT: Mucosal membranes moist Respiratory: Lungs are clear to auscultation bilaterally without any wheezing rhonchi or rales Cardiovascular: Normal S1 and S2 regular rate rhythm no murmurs rubs or gallops Abdomen: Soft, nontender and nondistended with positive bowel sounds Extremities: No lower extremity edema Skin: Normal color - Assessment and Plan (1) Diabetes mellitus type 2 with complications Current Visit: Yes Status: Chronic Assessment and Plan: Continue basal insulin with sliding scale coverage (2) Hypertension Current Visit: Yes Status: Acute Assessment and Plan: continue current blood pressure medication regimen. (3) Adrenal insufficiency Current Visit: Yes Status: Acute Assessment and Plan: Continue Decadron and Florinef. (4) Squamous cell carcinoma of lung, stage IV Current Visit: Yes Status: Chronic Assessment and Plan: Follow up with oncology after discharge (5) Pulmonary embolism Current Visit: Yes Status: Chronic Assessment and Plan: Continue Eliquis (6) DVT prophylaxis Current Visit: Yes Status: Acute Assessment and Plan: Continue Eliquis (7) A-fib Current Visit: Yes Status: Chronic Assessment and Plan: Continue metoprolol and anticoagulation with Eliquis. (8) Acute cholecystitis Current Visit: Yes Status: Acute Assessment and Plan: Status post laparoscopic cholecystectomy. Doing well from surgical standpoint. (9) Sepsis Current Visit: Yes Status: Resolved Assessment and Plan: now resolved. Antibiotic therapy completed (10) COPD (chronic obstructive pulmonary disease) Current Visit: Yes Status: Chronic Assessment and Plan: Not in acute exacerbation. Continue bronchodilators as needed (11) HFrEF (heart failure with reduced ejection fraction) Current Visit: Yes Status: Chronic (12) CAD (coronary artery disease) Current Visit: Yes Status: Chronic Assessment and Plan: Continue metoprolol, statin and Plavix (13) Seizure-like activity Current Visit: Yes Status: Ruled-out Assessment and Plan: Patient evaluated with EEG. No seizure-like activity noted at that time. Neurology recommendations followed. (14) Orthostasis Current Visit: Yes Status: Acute Assessment and Plan: Due to vertebrobasilar insufficiency. Continue Florinef. (15) Stenosis of both subclavian arteries Current Visit: Yes Status: Acute Assessment and Plan: Patient has stenosis of bilateral subclavian arteries. Angioplasty and stent placement done to right subclavian artery. Left subclavian artery and will need to be worked Donatelli today per vascular surgery if patient continues to recover. This is likely cause of her current vertebrobasilar insufficiency causing d izziness. Continue Plavix, statin. Moderate risk for complications. Awaiting placement to skilled rehabilitation. - Time Spent with Patient Total time spent is greater than 50% in coordination of care (as documented) at patient's floor/unit and/or counseling patient: Internal Medicine: Result - Labs CBC & Chem 7: 04/13/19 03:37 04/13/19 03:37 - ABG Interpretation ABG results: ABG ABG pH 7.48 pH Units (7.32-7.45) H 04/02/19 07:57 ABG pCO2 55 mmHg (35-45) H 04/02/19 07:57 ABG pO2 70 mmHg (85-104) L 04/02/19 07:57 ABG O2 Saturation 94 % (95-98) L 04/02/19 07:57 PT/INR, D-dimer PT 12.3 Seconds (9.4-12.1) H 03/25/19 18:45 Consult Discharge Plan - Plan Additional Instructions: F/U in 2 weeks and maintain drain until F/U Referrals: Cameron Kirby MD [Partnered Physician] - 04/27/19 8:20 am Maisha Ruth CNP [Primary Care Provider] - Mckay Pina MD [Partnered Physician] - 05/19/19 9:10 am (This appointment is in [place]) Prescriptions: Omeprazole [PriLOSEC] 20 mg PO DAILY 30 Days #30 cap (1) Diabetes mellitus type 2 with complications Qualifiers: Diabetes mellitus meterman insulin use: without custodial use Qualified Code(s): E11.8 - Type 2 diabetes mellitus with unspecified complications (2) Hypertension Qualifiers: Hypertension type: essential hypertension Qualified Code(s): I10 - Essential (primary) hypertension (4) Squamous cell carcinoma of lung, stage IV Qualifiers: Laterality: unspecified laterality Qualified Code(s): C34.90 - Malignant neoplasm of unspecified part of unspecified bronchus or lung (5) Pulmonary embolism Qualifiers: Pulmonary embolism type: other Chronicity: chronic Acute cor pulmonale presence: without acute cor pulmonale Qualified Code(s): I27.82 - Chronic pulmonary embolism (7) A-fib Qualifiers: Atrial fibrillation type: paroxysmal Qualified Code(s): I48.0 - Paroxysmal atrial fibrillation (9) Sepsis Qualifiers: Sepsis type: sepsis due to unspecified organism Qualified Code(s): A41.9 - Sepsis, unspecified organism (10) COPD (chronic obstructive pulmonary disease) Qualifiers: Emphysema type: unspecified Qualified Code(s): J43.9 - Emphysema, unspecified (11) HFrEF (heart failure with reduced ejection fraction) Qualifiers: Heart failure chronicity: acute on chronic Qualified Code(s): I50.23 - Acute on chronic systolic (congestive) heart failure (12) CAD (coronary artery disease) Qualifiers: Coronary Disease-Associated Artery/Lesion type: [place] artery [place] vs. transplanted heart: unspecified whether [place] or transplanted heart Associated angina: angina presence unspecified Qualified Code(s): I25.10 - Atherosclerotic heart disease of [place] coronary artery without angina pectoris
[2019-04-14] MEDS: lamoTRIgine 100 MG TABLET PO SCH (20:16)
[2019-04-14] MEDS: risperiDONE 1 MG TABLET PO SCH (20:16)
[2019-04-15] MEDS: *HR* Amiodarone 200 MG TABLET PO SCH (08:00)
[2019-04-15] MEDS: Metoprolol XL (24 HR) Succ 25 MG TAB.ER.24H PO SCH (08:01)
[2019-04-15] MEDS: Furosemide 40 MG TABLET PO SCH ×2 (08:01→17:02)
[2019-04-15] MEDS: Apixaban 5 MG TABLET PO SCH ×2 (08:01→20:58)
[2019-04-15] MEDS: Insulin LISPRO 300 UNITS/3 ML VIAL SQ SCH ×4 (08:02→17:12)
[2019-04-15] MEDS: Ipratropium/Albuterol Neb 3 ML IH SCH ×2 (08:02→22:19)
[2019-04-15] MEDS: Budesonide/Formoterol 160/4.5 1 PUFF INH IH SCH ×2 (08:04→22:19)
[2019-04-15] MEDS: OXYCODONE Oral CONC 10 MG/0.5 ML ORAL.SYG SL PRN (08:04)
[2019-04-15] MEDS: Insulin DETEMIR 100 UNIT/ML X5UNITS SQ SCH ×2 (08:19→21:11)
--- NOTE | 2019-04-15 09:19 | Internal Med Progress Note ---
Hospitalist Progress Note - Encounter Date of Encounter: 04/15/19 Time of Encounter: 11:00 - Subjective Interval History: Patient is a 63-year-old female with past medical history significant for stage IV squamous cell carcinoma of the lung, diabetes, CAD, hyperlipidemia, PE on Eliquis, and COPD presented from [facility] due to abdominal pain se condary to acute cholecystitis now status post laparoscopic cholecystectomy on 03/25/19. Patients hospital course: Patient with recent diagnosis of heart failure with reduced EF of 30-35% on echocardiogram on 01/2018. Cardiology was consulted with recommendations for IV diuresis She also developed symptoms of orthostasis secondary to stenosis of bilateral subclavian arteries with history of bilateral carotid artery endarterectomies and previous CVA. Vascular surgery was consulted and a right subclavian stent was placed on 04/08/19. PT/OT evaluation patient with recommendation for penitentiary facility placement for strengthening conditioning Patient currently awaiting placement. - Exam Vitals: Temp Pulse Resp BP Pulse Ox 98.3 F 94 21 162/75 97 04/15/19 07:20 04/15/19 07:20 04/15/19 08:02 04/15/19 07:20 04/15/19 08:02 Exam: Gen.: Nonacute distress, alert and oriented 3 ENT: Mucosal membranes moist Respiratory: Lungs are clear to auscultation bilaterally without any wheezing rhonchi or rales Cardiovascular: Normal S1 and S2 regular rate rhythm no murmurs rubs or gallops Abdomen: Soft, nontender and nondistended with positive bowel sounds Extremities: No lower extremity edema Skin: Normal color - Assessment and Plan (1) Goals of care, counseling/discussion Current Visit: No Status: Chronic Assessment and Plan: Awaiting placement to penitentiary facility for strengthening conditioning (2) Stenosis of both subclavian arteries Current Visit: Yes Status: Acute Assessment and Plan: She developed symptoms of orthostasis secondary to stenosis of bilateral subclavian arteries with history of bilateral carotid artery endarterectomies . Vascular surgery was consulted and a right subclavian stent was placed on 04/08/19. Continue Plavix, statin. Awaiting placement to skilled rehabilitation. (3) Acute cholecystitis Current Visit: Yes Status: Acute Assessment and Plan: Patient presented from [facility] due to abdominal pain secondary to acute cholecystitis with sepsis that has now resolved. Patient now status post laparoscopic cholecystectomy on 03/25/19. (4) HFrEF (heart failure with reduced ejection fraction) Current Visit: Yes Status: Chronic Assessment and Plan: Resoloved Patient with recent diagnosis of heart failure with reduced EF of 30-35% on echocardiogram on 01/2018. Cardiology was consulted with recommendations for IV diuresis IV diuresis has been discontinued and patient now on by mouth Lasix (5) Squamous cell carcinoma of lung, stage IV Current Visit: Yes Status: Chronic Assessment and Plan: Follow up with oncology after discharge (6) Hypertension Current Visit: Yes Status: Acute Assessment and Plan: Continue beta ottoniel. (7) Adrenal insufficiency Current Visit: Yes Status: Acute Assessment and Plan: Continue Decadron and Florinef. (8) Pulmonary embolism Current Visit: Yes Status: Chronic Assessment and Plan: Patient status post IVC filter placement on 03/24/19 Continue Eliquis (9) A-fib Current Visit: Yes Status: Chronic Assessment and Plan: Continue metoprolol and anticoagulation with Eliquis. (10) Sepsis Current Visit: Yes Status: Resolved Assessment and Plan: now resolved. Antibiotic therapy completed (11) COPD (chronic obstructive pulmonary disease) Current Visit: Yes Status: Chronic Assessment and Plan: Not in acute exacerbation. Continue bronchodilators as needed (12) CAD (coronary artery disease) Current Visit: Yes Status: Chronic Assessment and Plan: Continue metoprolol, statin and Plavix (13) Seizure-like activity Current Visit: Yes Status: Ruled-out Assessment and Plan: Patient evaluated with EEG. No seizure-like activity noted at that time. Neurology recommendations followed. (14) Diabetes mellitus type 2 with complications Current Visit: Yes Status: Chronic Assessment and Plan: Continue basal insulin with sliding scale coverage DVT Prophylaxis: On Eliquis as above - Time Spent with Patient Total time spent is greater than 50% in coordination of care (as documented) at patient's floor/unit and/or counseling patient: Internal Medicine: Result - Labs CBC & Chem 7: 04/15/19 11:10 04/15/19 11:10 - ABG Interpretation ABG results: ABG ABG pH 7.48 pH Units (7.32-7.45) H 04/02/19 07:57 ABG pCO2 55 mmHg (35-45) H 04/02/19 07:57 ABG pO2 70 mmHg (85-104) L 04/02/19 07:57 ABG O2 Saturation 94 % (95-98) L 04/02/19 07:57 PT/INR, D-dimer PT 12.3 Seconds (9.4-12.1) H 03/25/19 18:45 Consult Discharge Plan - Plan Additional Instructions: F/U in 2 weeks and maintain drain until F/U Referrals: Cameron Kirby MD [Partnered Physician] - 04/27/19 8:20 am Maisha Ruth CNP [Primary Care Provider] - Mckay Pina MD [Partnered Physician] - 05/19/19 9:10 am (This appointment is in [place]) Prescriptions: Omeprazole [PriLOSEC] 20 mg PO DAILY 30 Days #30 cap (4) HFrEF (heart failure with reduced ejection fraction) Qualifiers: Heart failure chronicity: acute on chronic Qualified Code(s): I50.23 - Acute on chronic systolic (congestive) heart failure (5) Squamous cell carcinoma of lung, stage IV Qualifiers: Laterality: unspecified laterality Qualified Code(s): C34.90 - Malignant neoplasm of unspecified part of unspecified bronchus or lung (6) Hypertension Qualifiers: Hypertension type: essential hypertension Qualified Code(s): I10 - Essential (primary) hypertension (8) Pulmonary embolism Qualifiers: Pulmonary embolism type: other Chronicity: chronic Acute cor pulmonale presence: without acute cor pulmonale Qualified Code(s): I27.82 - Chronic pulmonary embolism (9) A-fib Qualifiers: Atrial fibrillation type: paroxysmal Qualified Code(s): I48.0 - Paroxysmal atrial fibrillation (10) Sepsis Qualifiers: Sepsis type: sepsis due to unspecified organism Qualified Code(s): A41.9 - S epsis, unspecified organism (11) COPD (chronic obstructive pulmonary disease) Qualifiers: Emphysema type: unspecified Qualified Code(s): J43.9 - Emphysema, unspecified (12) CAD (coronary artery disease) Qualifiers: Coronary Disease-Associated Artery/Lesion type: [place] artery [place] vs. transplanted heart: unspecified whether [place] or transplanted heart Associated angina: angina presence unspecified Qualified Code(s): I25.10 - At herosclerotic heart disease of [place] coronary artery without angina pectoris (14) Diabetes mellitus type 2 with complications Qualifiers: Diabetes mellitus mcfp insulin use: without mcfp use Qualified Code(s): E11.8 - Type 2 diabetes mellitus with unspecified complications
[2019-04-15] MEDS: clonazePAM 1 MG TABLET PO PRN ×3 (10:06→20:58)
[2019-04-15] MEDS: *HR* HYDROcodone/Acet 5/325 mg TABLET PO PRN ×3 (10:06→20:58)
[2019-04-15 11:51] LABS: Basophils % 0.1 %; Hematocrit 29.4 % (35.3-44.9); Hemoglobin 9.5 g/dL (11.5-15.4); Immature Granulocytes % 1.1 % (0-4); Lymphocytes # 0.5 K/mcL (0.6-4.6); Lymphocytes % 5.6 %; Mean Corpuscular HGB Conc 32.3 g/dL (31.6-35.5); Mean Corpuscular Hemoglobin 33.1 pg (28.0-33.3); Mean Corpuscular Volume 102.4 fL (83.0-100.0); Mean Platelet Volume 8.8 fL (9.4-12.4); Monocytes # 0.4 K/mcL (0.0-1.3); Monocytes % 5.2 %; Neutrophils # 7.2 K/mcL (1.6-8.9); Platelet Count 213 K/mcL (140-400); Red Blood Count 2.87 M/mcL (3.82-4.97); Red Cell Distribution Width 15.9 % (11.5-14.5)
[2019-04-15 12:06] LABS: BUN/Creatinine Ratio 42 (6-26); Blood Urea Nitrogen 27 mg/dL (8-23); Calcium 8.5 mg/dL (8.6-10.3); Carbon Dioxide 38 mEq/L (23-29); Chloride 95 mEq/L (98-107); Glucose 158 mg/dL (70-105); Osmolality,Calculated 298 (280-300); Potassium 3.4 mEq/L (3.5-5.1); Sodium 140 mEq/L (136-145); eGFR For Non-African Americans > 60 (> 60)
[2019-04-15] MEDS: risperiDONE 1 MG TABLET PO SCH (20:58)
[2019-04-15] MEDS: lamoTRIgine 100 MG TABLET PO SCH (20:58)
[2019-04-16 04:29] LABS: Hematocrit 27.8 % (35.3-44.9); Mean Corpuscular HGB Conc 32.4 g/dL (31.6-35.5); Mean Corpuscular Hemoglobin 33.2 pg (28.0-33.3); Mean Corpuscular Volume 102.6 fL (83.0-100.0); Mean Platelet Volume 8.9 fL (9.4-12.4); Platelet Count 187 K/mcL (140-400); Red Blood Count 2.71 M/mcL (3.82-4.97); Red Cell Distribution Width 16.1 % (11.5-14.5)
[2019-04-16 04:48] LABS: BUN/Creatinine Ratio 44 (6-26); Blood Urea Nitrogen 29 mg/dL (8-23); Calcium 8.4 mg/dL (8.6-10.3); Carbon Dioxide 38 mEq/L (23-29); Chloride 97 mEq/L (98-107); Glucose 166 mg/dL (70-105); Osmolality,Calculated 304 (280-300); Potassium 3.7 mEq/L (3.5-5.1); Sodium 142 mEq/L (136-145); eGFR For Non-African Americans > 60 (> 60)
[2019-04-16] MEDS: Insulin LISPRO 300 UNITS/3 ML VIAL SQ SCH ×3 (07:43→17:53)
[2019-04-16] MEDS: Apixaban 5 MG TABLET PO SCH (08:38)
[2019-04-16] MEDS: Furosemide 40 MG TABLET PO SCH ×2 (08:38→17:53)
[2019-04-16] MEDS: *HR* Amiodarone 200 MG TABLET PO SCH (08:38)
[2019-04-16] MEDS: Insulin DETEMIR 100 UNIT/ML X5UNITS SQ SCH (08:39)
[2019-04-16] MEDS: Metoprolol XL (24 HR) Succ 25 MG TAB.ER.24H PO SCH (08:39)
[2019-04-16] MEDS: *HR* HYDROcodone/Acet 5/325 mg TABLET PO PRN ×2 (08:42→14:58)
[2019-04-16] MEDS: clonazePAM 1 MG TABLET PO PRN ×2 (08:42→14:58)
[2019-04-16] MEDS: Budesonide/Formoterol 160/4.5 1 PUFF INH IH SCH (10:58)
[2019-04-16] MEDS: Ipratropium/Albuterol Neb 3 ML IH SCH (10:58)
[2019-04-16 14:58] VITALS: BP 106/61
--- NOTE | 2019-04-16 15:32 | Discharge Summary ---
Date of Encounter: 04/16/19 Time of Encounter: 11:00 - Discharge Diagnosis (1) Goals of care, counseling/discussion Priority: Primary Status: Chronic (2) Stenosis of both subclavian arteries Priority: Primary Status: Acute (3) Acute cholecystitis Priority: Primary Status: Acute (4) HFrEF (heart failure with reduced ejection fraction) Priority: Primary Status: Chronic Qualifiers: Heart failure chronicity: acute on chronic Qualified Code(s): I50.23 - Acute on chronic systolic (congestive) heart failure (5) Squamous cell carcinoma of lung, stage IV Priority: Primary Status: Chronic Qualifiers: Laterality: unspecified laterality Qualified Code(s): C34.90 - Malignant neoplasm of unspecified part of unspecified bronchus or lung (6) Hypertension Priority: Secondary Status: Acute Qualifiers: Hypertension type: essential hypertension Qualified Code(s): I10 - Essential (primary) hypertension (7) Adrenal insufficiency Priority: Secondary Status: Acute (8) Pulmonary embolism Priority: Secondary Status: Chronic Qualifiers: Pulmonary embolism type: other Chronicity: chronic Acute cor pulmonale presence: without acute cor pulmonale Qualified Code(s): I27.82 - Chronic pulmonary embolism (9) A-fib Priority: Secondary Status: Chronic Qualifiers: Atrial fibrillation type: paroxysmal Qualified Code(s): I48.0 - Paroxysmal atrial fibrillation (10) Sepsis Priority: Secondary Status: Resolved Qualifiers: Sepsis type: sepsis due to unspecified organism Qualified Code(s): A41.9 - Sepsis, unspecified organism (11) COPD (chronic obstructive pulmonary disease) Priority: Secondary Status: Chronic Qualifiers: Emphysema type: unspecified Qualified Code(s): J43.9 - Emphysema, unspecified (12) CAD (coronary artery disease) Priority: Secondary Status: Chronic Qualifiers: Coronary Disease-Associated Artery/Lesion type: [place] artery [place] vs. 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 Patients hospital course: Patient with recent diagnosis of heart failure with reduced EF of 30-35% on echocardiogram on 01/2018. Cardiology was consulted with recommendations for IV diuresis She also developed symptoms of orthostasis secondary to stenosis of bilateral subclavian arteries with history of bilateral carotid artery endarterectomies and previous CVA. Vascular surgery was consulted and a right subclavian stent was placed on 04/08/19. PT/OT evaluation patient with recommendation for longterm facility placement for strengthening conditioning - Time Spent with Patient Total time spent providing and/or coordinating discharge services: - Discharge Medications Prescriptions: New Amiodarone [Cordarone] 200 mg PO DAILY tablet Omeprazole [PriLOSEC] 20 mg PO DAILY 30 Days #30 cap Continued Doxepin [Sinequan] 50 mg PO HS Clopidogrel [Plavix] 75 mg PO DAILY Citalopram [CeleXA] 40 mg PO DAILY Simvastatin [Zocor] 40 mg PO HS Apixaban [Eliquis] 5 mg PO BID Fludrocortisone Acetate [Florinef] 0.1 mg PO BID Ipratropium/Albuterol Neb [Duoneb] 3 ml IH Q4HR PRN PRN Reason: sob/wheezing lamoTRIgine [Lamictal] 100 mg PO HS Lisinopril 2.5 mg PO DAILY Dexamethasone [Decadron] 4 mg PO BID PRN #45 tab PRN Reason: as directed Lidocaine/Prilocaine [Emla] 1 appl TP AD Metformin HCl [Glucophage Xr] 500 mg PO DAILY Potassium Chloride [K-Tab ER] 20 meq PO DAILY Tiotropium [Spiriva] 18 mcg IH DAILY Dexamethasone [Decadron] 6 mg PO DAILY Budesonide/Formoterol 160/4.5 [Symbicort 160/4.5] 2 puff IH BID risperiDONE [Risperidone] 1 mg PO HS Cilostazol [Pletal] 100 mg PO BID Discontinued Furosemide [Lasix] 20 mg PO DAILY #14 tablet Prochlorperazine Maleate [Compazine] 10 mg PO Q6HR PRN PRN Reason: Nausea Sucralfate [Carafate] 1 gm PO QID clonazePAM [Clonazepam] 1 mg PO QID PRN PRN Reason: Anxiety Zolpidem [Ambien] 10 mg PO HS PRN PRN Reason: Sleep HYDROcodone/Acet 7.5/325 mg [Hart 7.5-325 mg] 1 tab PO Q6H PRN PRN Reason: Pain Home Medications: Budesonide/Formoterol 160/4.5 [Symbicort 160/4.5] 2 puff IH BID 12/14/18 [History] Cilostazol [Pletal] 100 mg PO BID 12/14/18 [History] risperiDONE [Risperidone] 1 mg PO HS 12/14/18 [History] Citalopram [CeleXA] 40 mg PO DAILY 12/15/18 [History] Clopidogrel [Plavix] 75 mg PO DAILY 12/15/18 [History] Doxepin [Sinequan] 50 mg PO HS 12/15/18 [History] Simvastatin [Zocor] 40 mg PO HS 12/15/18 [History] Apixaban [Eliquis] 5 mg PO BID 02/18/19 [History] Fludrocortisone Acetate [Florinef] 0.1 mg PO BID 03/04/19 [History] Ipratropium/Albuterol Neb [Duoneb] 3 ml IH Q4HR PRN 03/04/19 [History] Lisinopril 2.5 mg PO DAILY 03/04/19 [History] lamoTRIgine [Lamictal] 100 mg PO HS 03/04/19 [History] Dexamethasone [Decadron] 4 mg PO BID PRN #45 tab 03/11/19 [Rx] Dexamethasone [Decadron] 6 mg PO DAILY 03/23/19 [History] Lidocaine/Prilocaine [Emla] 1 appl TP AD 03/23/19 [History] Metformin HCl [Glucophage Xr] 500 mg PO DAILY 03/23/19 [History] Potassium Chloride [K-Tab ER] 20 meq PO DAILY 03/23/19 [History] Tiotropium [Spiriva] 18 mcg IH DAILY 03/23/19 [History] Amiodarone [Cordarone] 200 mg PO DAILY tablet 03/30/19 [Rx] Omeprazole [PriLOSEC] 20 mg PO DAILY 30 Days #30 cap 03/30/19 [Rx] Allergies/Adverse Reactions: Allergy/AdvReac Type Severity Reaction Status Date / Time Penicillins Allergy See Verified 03/23/19 09:19 Comments Date of admission: 03/23/19 03:14 Primary care physician: Maisha Ruth CNP Consults: 03/22/19 20:03 Consult to Nutrition [CONS] Routine Comment: Consulting Provider: NUTRITION Reason for Dietary Consult: MST Score 03/22/19 20:15 Consult to Surgery [CONS] Routine Consulting Provider: [facility] Reason for Consult: Acute Cholecystitis Call Completed: Yes 03/23/19 12:07 Consult to Cardiology [CONS] Routine Comment: Consulting Provider: Cardiology [facility] Reason for Consult: HFrEF, known CAD, severe sepsis with acute lonnie. for pre-op eval Call Completed: Yes 03/23/19 12:22 Consult to Palliative Care [CONS] Routine Comment: Consulting Provider: Palliative Care [facility] Reason for Consult: History of metastatic lung cancer, HFrEF, o2-dependent COPD, admited for sepsis 2/2 acute lonnie. GOC discussion Call Completed: Yes 03/23/19 13:18 Consult to Critical Care [CONS] Stat Consulting Provider: Pulm Crit Care & Sleep [facility] Reason for Consult: Sepsis with acute cholecystitis, plan for surgery on . Hx of metastatic lung CA, HFrEF, O2-dep COPD Call Completed: Yes 03/27/19 13:11 Consult to Occupational Therapy [CONS] Routine Comment: Evaluate, develop and implement POC Reason for Consult: improve mobility, discharge planning Does patient have active BEDREST order?: No Is patient medically & hemodynamically stable?: Yes Consult to Physical Therapy [CONS] Routine Comment: Evaluate, develop and implement POC Reason for Consult: improve mobility, discharge planning Does patient have active BEDREST order?: No Is patient medically & hemodynamically stable?: Yes 04/04/19 14:47 Consult to Nutrition [CONS] Routine Comment: Consulting Provider: NUTRITION Reason for Dietary Consult: PO Supplementation Other:: Low albumin 04/06/19 07:50 Consult to Neurology [CONS] Routine Consulting Provider: Neurology [facility] Reason for Consult: Seizure like activity reported by RN, hx of syncope Call Completed: No 04/06/19 11:59 Consult to Interpret Exam [CONS] Routine Consulting Provider: Hero Martinez Consult to Interpret Exam: Interpret EEG 04/06/19 15:59 Consult to Cardiology [CONS] Routine Comment: Consulting Provider: Cardiology [place] Reason for Consult: Systolic CHF with pericadial effusion, orthostatic syncope. Call Completed: No 04/07/19 10:10 Consult to Vascular Surgery [CONS] Routine Consulting Provider: Vascular Surgery [facility] Reason for Consult: Right subclavian art stenosis; dizzy spells Time Notified: 10:11 Call Completed: Yes - Constitutional Vitals: Temp Pulse Resp BP Pulse Ox 98 F 91 16 106/61 95 04/16/19 09:47 04/16/19 14:50 04/16/19 11:00 04/16/19 14:50 04/16/19 11:00 Exam: Gen.: Nonacute distress, alert and oriented 3 Skin: Normal color - Patient Status Disposition: Transfer SNF Condition: Fair - Discharge Instructions Follow Up With: Cameron Kirby MD [Partnered Physician] - 04/27/19 8:20 am Maisha Ruth CNP [Primary Care Provider] - Mckay Pina MD [Partnered Physician] - 05/19/19 9:10 am (This appointment is in [place]) Additional Instructions: F/U in 2 weeks and maintain drain until F/U
--- NOTE | 2019-04-16 15:33 | Physician Discharge Referral ---
ExtendedCare Referral Info Institutional Level of Care: Skilled - Diagnosis (1) Goals of care, counseling/discussion Status: Chronic (2) Stenosis of both subclavian arteries Status: Acute (3) Acute cholecystitis Status: Acute (4) HFrEF (heart failure with reduced ejection fraction) Status: Chronic (5) Squamous cell carcinoma of lung, stage IV Status: Chronic (6) Hypertension Status: Acute (7) Adrenal insufficiency Status: Acute (8) Pulmonary embolism Status: Chronic (9) A-fib Status: Chronic (10) Sepsis Status: Resolved (11) COPD (chronic obstructive pulmonary disease) Status: Chronic (12) CAD (coronary artery disease) Status: Chronic (13) Seizure-like activity Status: Ruled-out (14) Diabetes mellitus type 2 with complications Status: Chronic - Transfer Medications Prescriptions: Omeprazole [PriLOSEC] 20 mg PO DAILY 30 Days #30 cap Home Medications: Budesonide/Formoterol 160/4.5 [Symbicort 160/4.5] 2 puff IH BID 12/14/18 [History] Cilostazol [Pletal] 100 mg PO BID 12/14/18 [History] risperiDONE [Risperidone] 1 mg PO HS 12/14/18 [History] Citalopram [CeleXA] 40 mg PO DAILY 12/15/18 [History] Clopidogrel [Plavix] 75 mg PO DAILY 12/15/18 [History] Doxepin [Sinequan] 50 mg PO HS 12/15/18 [History] Simvastatin [Zocor] 40 mg PO HS 12/15/18 [History] Apixaban [Eliquis] 5 mg PO BID 02/18/19 [History] Fludrocortisone Acetate [Florinef] 0.1 mg PO BID 03/04/19 [History] Ipratropium/Albuterol Neb [Duoneb] 3 ml IH Q4HR PRN 03/04/19 [History] Lisinopril 2.5 mg PO DAILY 03/04/19 [History] lamoTRIgine [Lamictal] 100 mg PO HS 03/04/19 [History] Dexamethasone [Decadron] 4 mg PO BID PRN #45 tab 03/11/19 [Rx] Dexamethasone [Decadron] 6 mg PO DAILY 03/23/19 [History] Lidocaine/Prilocaine [Emla] 1 appl TP AD 03/23/19 [History] Metformin HCl [Glucophage Xr] 500 mg PO DAILY 03/23/19 [History] Potassium Chloride [K-Tab ER] 20 meq PO DAILY 03/23/19 [History] Tiotropium [Spiriva] 18 mcg IH DAILY 03/23/19 [History] Amiodarone [Cordarone] 200 mg PO DAILY tablet 03/30/19 [Rx] Omeprazole [PriLOSEC] 20 mg PO DAILY 30 Days #30 cap 03/30/19 [Rx] Allergies/Adverse Reactions: Allergy/AdvReac Type Severity Reaction Status Date / Time Penicillins Allergy See Verified 03/23/19 09:19 Comments - Respiratory Orders Smoking Cessation: Smoking cessation has been advised. For more information, call the [place] Tobacco Quit Line at 0-844-WBKDNOW. CERTIFICATION: I certify that the transfer of the above named patient to an Extended Care Facility is necessary for the continuing treatment of the diagnosis listed. The above information is true and accurate reflection of patient's current condition. Confidential - Redisclosure prohibited without a patient's written consent.
== END 2019-04-16 18:30 | DRG 853 ==
LOC: 3ANU → SUATTDRO 03-23 03:14 → ICNU 03-23 14:00 → 2NNU 03-25 07:04 → ICNU 03-25 13:43 → 3ANU 03-26 12:28 → 2NNU 04-08 14:51 → 3NENU 04-15 11:26
PROVIDERS: ADMIT Student in an Organized Health Care Education/Training Program; ATTEND Hospitalist

== ENCOUNTER 2019-04-29 11:33 | Observation (INO) ==
--- NOTE | 2019-04-29 15:46 | Internal Med History&Physical ---
Date of Encounter: 04/29/19 Time of Encounter: 15:39 Internal Medicine - H&P: HPI Chief complaint: AMS Admitted From: Long-term Nursing Facility Plans for Post Hospital Care: Hospice - Home History of present illness: Ms. 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 heart failure with reduced EF of 30-35% on echocardiogram on 01/2018. stenosis of bilateral subclavian arteries with history of bilateral carotid artery endarterectomies and previous CVA. Vascular surgery was consulted and a right subclavian stent was placed on 04/08/19. Patient was just discharged to the SNF on April 16 with 3 L NC. Patient was found unresponsive last night, the facility they started her on BiPAP, but this morning she still confused, they sent her to emergency room. In the emergency room she was found COPD exacerbation placed on BiPAP transferred here for further evaluation and treatment. When I saw the patient and she is alert oriented 3. We took ,off BiPAP machine placed on 2 L nasal cannula. Patient stated that she was Comfort Care, she wants to continue comfort care. She is really tied off back and fourth from hospital and the nursing facility she really will not go home with hospice. The paperwork received from [place] facility, she is DNR CC only. And I will consult palliative team for hospice. We will treat her COPD and CHF exacerbation since she is SOB and has wheezing. CXR from ER showed Increasing bilateral lung masses consistent with progressive metastatic disease. There is question of developing right upper lobe infiltrate Past Med Surg Social Fam HX - Past Medical History Medical history: cancer, CHF, COPD, coronary artery disease, diabetes, hyperlipidemia, pulmonary embolus, other Additional medical history: LUNG CA Psychiatric history: anxiety, bipolar, depression, panic disorder - Past Surgical History Surgical History: angioplasty/stent, carotid endarterectomy, cholecystectomy, other, vascular surgery, LE stent (s), LE vascular intervention Additional surgical history: STENTS IN LEGS: [place] filter - Social History Smoking Status: Former smoker Smokeless Tobacco Status: No Alcohol use: none Drug use: none - Family History Father Family Member Ethnicity: Non- Living Status: Hx Family Cardiac Disorders: Yes (CHF) Mother Family Member Ethnicity: Non- Living Status: Hx Family Cardiac Disorders: Yes (CHF) Hx Family Neurologic Disorders: Yes Internal Medicine - H&P: Meds Cilostazol [Pletal] 100 mg PO BID 12/14/18 [History] risperiDONE [Risperidone] 1 mg PO HS 12/14/18 [History] Citalopram [CeleXA] 40 mg PO DAILY 12/15/18 [History] Clopidogrel [Plavix] 75 mg PO DAILY 12/15/18 [History] Doxepin [Sinequan] 25 mg PO HS 12/15/18 [History] Simvastatin [Zocor] 40 mg PO HS 12/15/18 [History] Fludrocortisone Acetate [Florinef] 0.1 mg PO BID 03/04/19 [History] Ipratropium/Albuterol Neb [Duoneb] 3 ml IH Q4HR PRN 03/04/19 [History] Lisinopril 2.5 mg PO DAILY 03/04/19 [History] lamoTRIgine [Lamictal] 100 mg PO HS 03/04/19 [History] Dexamethasone [Decadron] 6 mg PO DAILY 03/23/19 [History] Lidocaine/Prilocaine [Emla] 1 appl TP AD 03/23/19 [History] Potassium Chloride [K-Tab ER] 20 meq PO DAILY 03/23/19 [History] Tiotropium [Spiriva] 18 mcg IH DAILY 03/23/19 [History] Amiodarone [Cordarone] 200 mg PO DAILY tablet 03/30/19 [Rx] Apixaban [Eliquis] 5 mg PO BID 04/29/19 [History] Fluticasone/Vilanterol [Breo Ellipta 100-25 Mcg INH] 1 each IH DAILY 04/29/19 [History] HYDROcodone/Acet 7.5/325 mg [Warren 7.5-325 mg] 1 tab PO Q6H PRN 04/29/19 [History] Insulin Glargine,Hum.rec.anlog [Basaglar Kwikpen U-100] 10 unit SQ HS 04/29/19 [History] Insulin LISPRO [Humalog] 0 unit SQ TIDWM 04/29/19 [History] Magnesium Hydroxide [Milk of Magnesia] 400 mg PO DAILY PRN 04/29/19 [History] Melatonin 3 mg PO HS 04/29/19 [History] clonazePAM [Klonopin] 1 mg PO QID PRN 04/29/19 [History] Allergy/AdvReac Type Severity Reaction Status Date / Time Penicillins Allergy See Verified 03/23/19 09:19 Comments All Systems PM: A 10-system review of systems was performed and is negative for pertinent findings except as documented above in the HPI. - Constitutional Vitals: Temp Resp BP Pulse Ox 98.4 F 19 184/84 94 04/29/19 14:12 04/29/19 14:12 04/29/19 14:12 04/29/19 14:12 General appearance: Present: A&O X 3, pleasant Exam: CONSTITUTIONAL: Patient appears as an age appropriate female well developed, in no acute distress. EYES Clear sclerae, bilateral pupils are equal, reactive to light and accommodation. Extraocular movements are intact RESPIRATORY: No accessory muscle use, bilateral diffuse wheezing to auscultation, no wheezing, no crackles/rales. CARDIOVASCULAR: Regular heart rate, normal S1 and S2, no murmurs GASTROINTESTINAL: bowel sounds present, soft, no tenderness. No hepatosplenomegaly. No bilateral CVA tenderness MUSCULOSKELETAL: Joints in normal range of motion, no clubbing, no edema, no cyanosis. Bilateral peripheral pulses 2+ LYMPHATIC no lymphadenopathy in neck, groin and axilla bilaterally, no thyromegaly. NEUROLOGIC: CN II to XII are grossly intact, no focal neurological deficit. Deep tendon reflexes 2+ bilaterally. Normal light touch sensation to upper and lower extremity PSYCHIATRIC: Oriented x3, with good insight, mood is euthymic. No hallucinations or delusions. SKIN: Skin warm and dry, no rashes, no open wound. - Summary of Assessment and Plan Summary of Assessment and Plan: This is a 64 year 70 female who has history of CHF COPD stage IV lung cancer disease CVA obesity history of PE, she was uncomplicated to skilled facility was found the unresponsive yesterday. Patient was sent here for COPD and CHF exacerbation. But the patient was comfort care only at the care home, I had extensive discussion with patient and she is alert oriented 3, she wants continue comfort care only, wants hospice, she is tired of being back and forth from hospital to care home. She wants go home with hospice. Chest x-ray shows progressive metastatic disease. 1. Acute on chronic hypoxic and hypercapnic panic respiratory failure from COPD exacerbation, will give IV steroids and antibiotics BiPAP as needed 2, possible acute on chronic systolic and diastolic CHF exacerbation we will give IV Lasix continue home medications 3. Metabolic encephalopathy from hypoxia hypcapneia, improved with BiPAP 4. Squamous cell lung cancer, Stage IV lung cancer chest x-ray shows progressive metastatic disease 5. Hypertension 6. Insufficiency 8 pulmonary emboli continue Eliquis 9. atrial fibrillation continue metoprolol and glucose 9 CAD and CVA ASA and Plavix, statin 10. DM adán 2 SSI 11. DNR-CC - Time Spent With Patient Total time spent is greater than 50% in coordination of care (as documented) at patient's floor/unit and/or counseling patient: Greater than 35 minutes
[2019-04-29] MEDS ORDERED: Albuterol 2.5 MG/3 ML NEBULIZER IH PRN (16:11)
[2019-04-29] MEDS ORDERED: Naloxone 0.4 MG/ML INJ IVP PRN (16:15)
[2019-04-29] MEDS: Furosemide 40 MG/4 ML VIAL IVP SCH (17:41)
[2019-04-29] MEDS: MethylPREDNISolone 40 MG/ML VIAL IVP SCH ×2 (17:53→23:34)
[2019-04-29] MEDS: *HR* HYDROcodone/Acet 7.5/325 mg TABLET PO PRN (17:57)
[2019-04-29] MEDS: *HR* Amiodarone 200 MG TABLET PO SCH (17:57)
[2019-04-29] MEDS: Insulin LISPRO 300 UNITS/3 ML VIAL SQ SCH ×2 (17:59→20:44)
[2019-04-29] MEDS: Nicotine 14 MG PATCH.TD24 TD SCH (17:59)
[2019-04-29] MEDS ORDERED: *HR* FentaNYL (PF) 100 MCG/2 ML VIAL IVP ONE (20:06)
[2019-04-29] MEDS: lamoTRIgine 100 MG TABLET PO SCH (20:43)
[2019-04-29] MEDS: Apixaban 5 MG TABLET PO SCH (20:43)
[2019-04-29] MEDS: Insulin DETEMIR 100 UNIT/ML X5UNITS SQ SCH (20:43)
[2019-04-29] MEDS: Melatonin 3 MG TABLET PO SCH (20:43)
[2019-04-29] MEDS: risperiDONE 1 MG TABLET PO SCH (20:43)
[2019-04-29] MEDS: clonazePAM 1 MG TABLET PO PRN (21:04)
[2019-04-30] MEDS: *HR* HYDROcodone/Acet 7.5/325 mg TABLET PO PRN ×4 (03:35→21:06)
[2019-04-30] MEDS: MethylPREDNISolone 40 MG/ML VIAL IVP SCH ×2 (05:07→12:35)
[2019-04-30] MEDS: Insulin LISPRO 300 UNITS/3 ML VIAL SQ SCH ×4 (08:38→21:06)
[2019-04-30] MEDS: Nicotine 14 MG PATCH.TD24 TD SCH (08:47)
[2019-04-30] MEDS: Furosemide 40 MG/4 ML VIAL IVP SCH (08:48)
[2019-04-30] MEDS: Apixaban 5 MG TABLET PO SCH ×2 (08:48→21:05)
[2019-04-30] MEDS: *HR* Amiodarone 200 MG TABLET PO SCH (08:48)
[2019-04-30] MEDS ORDERED: levoFLOXacin 500 MG TABLET PO SCH (09:00)
[2019-04-30] MEDS: Budesonide/Formoterol 160/4.5 1 PUFF INH IH SCH ×2 (11:15→21:17)
[2019-04-30] MEDS: Tiotropium 18 MCG inhalation IH SCH (11:19)
[2019-04-30] MEDS: Ipratropium/Albuterol Neb 3 ML IH PRN ×2 (11:38→15:56)
[2019-04-30] MEDS: clonazePAM 1 MG TABLET PO PRN ×2 (12:35→18:38)
--- NOTE | 2019-04-30 13:57 | Internal Med Progress Note ---
Hospitalist Progress Note - Encounter Date of Encounter: 04/30/19 Time of Encounter: 13:54 - Subjective Interval History: Patient is alert and oriented to 3, she c/o a lot of pain from back, eating her lunch, her sister is in the room. she is await for the palliaitve meeting - Exam Vitals: Temp Pulse Resp BP Pulse Ox 98.1 F 104 20 95/51 96 04/30/19 11:38 04/30/19 11:38 04/30/19 11:38 04/30/19 11:38 04/30/19 11:38 Exam: CONSTITUTIONAL: Patient appears as an age appropriate female well developed, in no acute distress. EYES Clear sclerae, bilateral pupils are equal, reactive to light and accommodation. Extraocular movements are intact RESPIRATORY: No accessory muscle use, bilateral diffuse wheezing to auscultation, no wheezing, no crackles/rales. CARDIOVASCULAR: Regular heart rate, normal S1 and S2, no murmurs GASTROINTESTINAL: bowel sounds present, soft, no tenderness. No hepatosplenomegaly. No bilateral CVA tenderness MUSCULOSKELETAL: Joints in normal range of motion, no clubbing, no edema, no cyanosis. Bilateral peripheral pulses 2+ LYMPHATIC no lymphadenopathy in neck, groin and axilla bilaterally, no thyromegaly. NEUROLOGIC: CN II to XII are grossly intact, no focal neurological deficit. Deep tendon reflexes 2+ bilaterally. Normal light touch sensation to upper and lower extremity PSYCHIATRIC: Oriented x3, with good insight, mood is euthymic. No hallucinations or delusions. SKIN: Skin warm and dry, no rashes, no open wound. DVT Prophylaxis: eliquis - Summary of Assessment and Plan Summary of Assessment and Plan: This is a 64 year 70 female who has history of CHF COPD stage IV lung cancer disease CVA obesity history of PE, she was uncomplicated to skilled facility was found the unresponsive yesterday. Patient was sent here for COPD and CHF exacerbation. But the patient was comfort care only at the retirement, I had extensive discussion with patient and she is alert oriented 3, she wants continue comfort care only, wants hospice, she is tired of being back and forth from hospital to retirement. She wants go home with hospice. Chest x-ray shows progressive metastatic disease. 1. Acute on chronic hypoxic and hypercapnic panic respiratory failure from COPD exacerbation, improved, off BIPAP, will chaneg to oral steroids 2, possible acute on chronic systolic and diastolic CHF exacerbation, change to oral lasix 3. Metabolic encephalopathy from hypoxia hypercapnia, resolved 4. Squamous cell lung cancer, Stage IV lung cancer chest x-ray shows progressive metastatic disease 5. Hypertension 6. Insufficiency 8 pulmonary emboli continue Eliquis 9. atrial fibrillation continue metoprolol and glucose 9 CAD and CVA ASA and Plavix, statin 10. DM adán 2 SSI 11. DNR-CC hopefully Hospice home VS ECF - Time Spent with Patient Total time spent is greater than 50% in coordination of care (as documented) at patient's floor/unit and/or counseling patient: 25 - 35 minutes Plan of Care Discussed with: patient - VTE Reasons for not Prescribing Prophylaxis: Not indicated-Anticoagulated or INR therapeutic Consult Discharge Plan - Plan Referrals: Maisha Ruth, PROFESSIONAL FIGHTER [Primary Care Provider] -
--- NOTE | 2019-04-30 15:52 | Palliative Progress Note ---
Date of Encounter: 04/30/19 Time of Encounter: 15:43 - Assessment and plan (1) Goals of care, counseling/discussion Current Visit: Yes Status: Chronic Assessment and plan: Conducted 30 minute meeting. Bedside meeting with grand-daughter, who is POA, and son, [id number], whom she plans to return home with. - Time Spent With Patient Total time spent is greater than 50% in coordination of care (as documented) at patient's floor/unit and/or counseling patient: Greater than 35 minutes - Subjective Interval history: Ms. Mace is a 64 year old female with past medical history significant for stage IV squamous cell carcinoma of the right lung, diabetes, CAD, hyperlipidemia, PE on Eliquis, and COPD, acute cholecystitis now status post laparoscopic cholecystectomy on 03/25/19, heart failure with reduced EF of 30-35% on echocardiogram on 01/2018, stenosis of bilateral subclavian arteries with history of bilateral carotid artery endarterectomies and previous CVA. Vascular surgery was consulted and a right subclavian stent was placed on 04/08/19. Patient was discharged to SNF on April 16 with 3 L NC. Patient presented unresponsive on 04/28/19 and was found to be in COPD exacerbation. She is currently DNR-CC but would like to consider further comfort care at home with her family. Family is at bedside. She lives with son and [id number], and granddaughter is her POA. Ms. Mace has 10/10 back pain not controlled with current pain medication. She also continues to have SOB with movement and is wheezing. Was able to tolerate 50% of her breakfast today. Has not had a BM. Denies any fevers, nausea, vomiting. Palliative Quality Code Status: 04/29/19 16:15 Resuscitation Status: Active [RES] Routine Comment: Resuscitation Status: DNR-Comfort Care Consult Discharge Plan - Plan Referrals: Maisha Ruth, V[employer]IT OPERATOR [Primary Care Provider] -
--- NOTE | 2019-04-30 16:07 | Palliative - Consult Note ---
<Renny Guthrie - Last Filed: 04/30/19 17:01> Date of Encounter: 04/30/19 Time of Encounter: 16:05 - Assessment and Plan (1) Goals of care, counseling/discussion Current Visit: Yes Status: Chronic Assessment and plan: Conducted 30 minute bedside meeting with patient, MIKE chiang, son and [id number]. Patient was discharged to SNF on April 16 and returned to ED yesterday for altered mental status and COPD exacerbation. She is currently DNR- CC and is interested in hospice care. Dr. Araujo explained to patient and family what hospice entails, including 24 hour phone service, home health visit as needed, home health equipment as needed, and comfort care management. Life- extending procedures and disease modifying treatments are determined to be no longer beneficial and will be discontinued. The main goal will be for comfort care and symptomatic management. Patient and family verbalized understanding. Plan of Care: Case discussed with protective services social worker, Ariella. Patient will return home with family and hospice care once she is medically stable. Spoke with Dr. Guthrie, primary care hospitalist: Mrs. Mace continues to experience uncontrolled back pain, wheezing bilaterally requiring 4L O2. She will stay inpatient for at least today and will reaccess tomorrow. DNRCC code status form signed. DNR Comfort care protocol is activated immediately Advance diet as tolerated Pain management discussed with Dr. Guthrie, management per primary team (2) Acute exacerbation of chronic obstructive pulmonary disease (COPD) Current Visit: Yes Status: Acute (3) Palliative care encounter Current Visit: No Status: Acute (4) Squamous cell carcinoma of lung, stage IV Current Visit: No Status: Chronic Qualifiers: Laterality: unspecified laterality Qualified Code(s): C34.90 - Malignant neoplasm of unspecified part of unspecified bronchus or lung (5) Pulmonary embolism Current Visit: No Status: Chronic Assessment and plan: On Eliquis Qualifiers: Pulmonary embolism type: other Chronicity: chronic Acute cor pulmonale presence: without acute cor pulmonale Qualified Code(s): I27.82 - Chronic pulmonary embolism Palliative-CN HPI - Data of Consult Patient: known to practice within the last 3 years Consult date: 04/29/19 Requesting Physician: Tali Guthrie MD Primary Care Provider: Maisha Ruth CNP - Consult Narrative Palliative Care/Comfort Measures: Hospice care Reason for consult: Discussion for Hospice Care History of present illness: Ms. Mace is a 64 year old female with past medical history significant for stage IV squamous cell carcinoma of the right lung, diabetes, CAD, hyperlipidemia, PE on Eliquis, and COPD, acute cholecystitis now status post laparoscopic cholecystectomy on 03/25/19, heart failure with reduced EF of 30-35% on echocardiogram on 01/2018, stenosis of bilateral subclavian arteries with history of bilateral carotid artery endarterectomies and previous CVA. Vascular surgery was consulted and a right subclavian stent was placed on 04/08/19. Patient was discharged to SNF on April 16 with 3 L NC. Patient presented unresponsive on 04/28/19 and was found to be in COPD exacerbation. She is currently DNR-CC but would like to consider further comfort care at home with her family. Family is at bedside. She lives with son and [id number], and granddaughter is her POA. Ms. Mace has 10/10 back pain not controlled with current pain medication. She also continues to have SOB with movement and is wheezing. Was able to tolerate 50% of her breakfast today. Has not had a BM. Denies any fevers, nausea, vomiting. CC: Tali Guthrie MD - Time Spent with Patient Time: Total time spent is greater than 50% in coordination of care (as documented) at patient's floor/unit and/or counseling patient: Time with patient: 30 minutes Past Med Surg Social Fam HX - Past Medical History Medical history: cancer, CHF, COPD, coronary artery disease, diabetes, hyperlipidemia, pulmonary embolus, other Additional medical history: LUNG CA Psychiatric history: anxiety, bipolar, depression, panic disorder - Past Surgical History Surgical History: angioplasty/stent, carotid endarterectomy, cholecystectomy, other, vascular surgery, LE stent (s), LE vascular intervention Additional surgical history: STENTS IN LEGS: [place] filter - Social History Smoking Status: Current every day smoker Smokeless Tobacco Status: Yes Alcohol use: none Drug use: none - Family History Father Family Member Ethnicity: Non- Living Status: Hx Family Cardiac Disorders: Yes (CHF) Mother Family Member Ethnicity: Non- Living Status: Hx Family Cardiac Disorders: Yes (CHF) Hx Family Neurologic Disorders: Yes Medications and Allergies Cilostazol [Pletal] 100 mg PO BID 12/14/18 [History] risperiDONE [Risperidone] 1 mg PO HS 12/14/18 [History] Citalopram [CeleXA] 40 mg PO DAILY 12/15/18 [History] Clopidogrel [Plavix] 75 mg PO HS 12/15/18 [History] Doxepin [Sinequan] 25 mg PO HS 12/15/18 [History] Simvastatin [Zocor] 40 mg PO HS 12/15/18 [History] Fludrocortisone Acetate [Florinef] 0.1 mg PO BID 03/04/19 [History] Ipratropium/Albuterol Neb [Duoneb] 3 ml IH Q8H PRN 03/04/19 [History] Lisinopril 2.5 mg PO DAILY PRN 03/04/19 [History] lamoTRIgine [Lamictal] 100 mg PO HS 03/04/19 [History] Dexamethasone [Decadron] 6 mg PO DAILY 03/23/19 [History] Lidocaine/Prilocaine [Emla] 1 appl TP AD 03/23/19 [History] Amiodarone [Cordarone] 200 mg PO DAILY tablet 03/30/19 [Rx] Apixaban [Eliquis] 5 mg PO BID 04/29/19 [History] Magnesium Hydroxide [Milk of Magnesia] 400 mg PO DAILY PRN 04/29/19 [History] Melatonin 3 mg PO HS 04/29/19 [History] Budesonide/Formoterol 160/4.5 [Symbicort 160/4.5] 2 puff IH BID 04/30/19 [History] Levalbuterol Neb [Xopenex Neb] 3 ml IH Q4H PRN 04/30/19 [History] Metformin HCl [Fortamet] 500 mg PO DAILY 04/30/19 [History] Omeprazole [PriLOSEC] 20 mg PO DAILY 04/30/19 [History] Allergy/AdvReac Type Severity Reaction Status Date / Time Penicillins Allergy Hives Verified 04/30/19 10:48 All systems: reviewed and no additional remarkable complaints except as stated Review of systems: - Constitutional Constitutional ROS PAL: Fatigue, tiredness, depressed and wants to be comfortable. - EENT Eyes: No blurry vision - Respiratory Respiratory: dyspnea, dyspnea on exertion - Gastrointestinal Gastrointestinal: no abdominal pain, nausea - Genitourinary Genitourinary ROS female: no dysuria, hematuria, flank pain - Musculoskeletal Musculoskeletal ROS IM: severe back pain 09/02 - Neurological Neurological ROS: weakness Palliative Care-Exam - Constitutional Vitals: Temp Pulse Resp BP Pulse Ox 98.1 F 104 18 95/51 96 04/30/19 11:38 04/30/19 11:38 04/30/19 16:00 04/30/19 11:38 04/30/19 16:00 General appearance: Present: obese - Head Head Exam: Present: atraumatic, normocephalic - Eye Eye exam: Present: EOMI - ENT ENT exam: Present: mucous membranes dry - Neck Neck exam: Present: full ROM, normal inspection - Expanded Neck Exam Neck exam: Absent: carotid bruit, tracheal deviation - Respiratory Respiratory exam: Present: wheezes. Absent: accessory muscle use Additional comments: diffuse wheezing bilaterally - Cardiovascular Cardiovascular exam: Present: RRR, +S1, +S2. Absent: systolic murmur - GI/Abdominal Exam GI/Abdominal exam: Present: soft. Absent: bruit, guarding, tenderness - Extremities Exam Extremities exam: Present: normal capillary refill, pedal edema. Absent: calf tenderness - Back Exam Back exam: Present: paraspinal tenderness, tenderness - Neurological Exam Neurological exam: Present: alert, altered, CN II-XII intact, oriented X3 - Skin Skin exam: Present: dry, intact Consult Discharge Plan - Plan Referrals: Maisha Ruth CNP [Primary Care Provider] - Palliative Quality Palliative Quality: Screen for Code Status: Yes, Screen for Goals of Care: Yes, Screen for Pain: Yes, If Pain Regimen Started, Initiate Bowel Regimen: NA, Screen for Nausea/Vomitting: NA Code Status: 04/29/19 16:15 Resuscitation Status: Active [RES] Routine Comment: Resuscitation Status: DNR-Comfort Care <Paris Araujo - Last Filed: 04/30/19 17:27> Date of Encounter: 04/30/19 Palliative-CN HPI - Data of Consult Requesting Physician: Tali Guthrie MD Primary Care Provider: Maisha Ruth CNP - Consult Narrative History of present illness: Ms. Mace is a 64 year old female CC: Tali Guthrie MD - Time Spent with Patient Time: Total time spent is greater than 50% in coordination of care (as documented) at patient's floor/unit and/or counseling patient: Palliative Care-Exam - Constitutional Vitals: Temp Pulse Resp BP Pulse Ox 97.9 F 90 14 90/42 98 04/30/19 16:47 04/30/19 16:47 04/30/19 16:47 04/30/19 16:47 04/30/19 16:47 - Attending Attestation I performed a history and physical examination of the patient and discussed his management with the resident. I reviewed the residents note and agree with the documented findings and plan of care, except as follow: Conducted 35 minutes meeting with patient, granddaughter, son and [id number]. Patient and family agreeable for home with hospice. All questions were answered. [place] [facility] nurse Ariella was called and met with patient and family the to finalize to modalities of admission. Discuss with primary hospitalist Dr. Guthrie, patient is not is not yet stable for discharge. [facility], settings would be ready by Friday for patient's discharge. Back pain: Patient has chronic back pain, and states that current medication Katy 7.5 is not making any difference to the pain. Plan We will discontinue Katy Start oxycodone 10 mg every 4 hours when necessary and acetaminophen 500 mg every 6 hours when necessary. Palliative care will continue to follow over the weekend for pain control. Palliative Quality Code Status: 04/29/19 16:15 Resuscitation Status: Active [RES] Routine Comment: Resuscitation Status: DNR-Comfort Care
[2019-04-30] MEDS: predniSONE 20 MG TABLET PO SCH (17:29)
[2019-04-30] MEDS: Furosemide 40 MG TABLET PO SCH (17:29)
[2019-04-30] MEDS: *HR* OxyCODONE Immed Rel 5 MG TABLET PO PRN ×2 (17:39→21:51)
[2019-04-30] MEDS: Melatonin 3 MG TABLET PO SCH (21:05)
[2019-04-30] MEDS: Insulin DETEMIR 100 UNIT/ML X5UNITS SQ SCH (21:05)
[2019-04-30] MEDS: lamoTRIgine 100 MG TABLET PO SCH (21:05)
[2019-04-30] MEDS: risperiDONE 1 MG TABLET PO SCH (21:06)
[2019-05-01] MEDS ORDERED: Acetaminophen IV 1,000 MG/100 ML INFUS..BTL IVPB ONE (01:27)
[2019-05-01] MEDS: *HR* OxyCODONE Immed Rel 5 MG TABLET PO PRN ×4 (01:50→21:34)
[2019-05-01] MEDS: *HR* HYDROcodone/Acet 7.5/325 mg TABLET PO PRN ×2 (03:56→09:04)
[2019-05-01] MEDS: Furosemide 40 MG TABLET PO SCH ×2 (08:49→16:16)
[2019-05-01] MEDS: predniSONE 20 MG TABLET PO SCH (08:49)
[2019-05-01] MEDS: Apixaban 5 MG TABLET PO SCH ×2 (08:49→21:13)
[2019-05-01] MEDS: Nicotine 14 MG PATCH.TD24 TD SCH ×2 (08:50→09:01)
[2019-05-01] MEDS: *HR* Amiodarone 200 MG TABLET PO SCH (08:50)
[2019-05-01] MEDS: Insulin LISPRO 300 UNITS/3 ML VIAL SQ SCH ×4 (08:51→21:14)
[2019-05-01] MEDS: clonazePAM 1 MG TABLET PO PRN (09:04)
[2019-05-01] MEDS: Tiotropium 18 MCG inhalation IH SCH (10:42)
[2019-05-01] MEDS: Budesonide/Formoterol 160/4.5 1 PUFF INH IH SCH ×2 (10:42→19:41)
--- NOTE | 2019-05-01 14:58 | Internal Med Progress Note ---
Hospitalist Progress Note - Encounter Date of Encounter: 05/01/19 Time of Encounter: 14:49 - Subjective Interval History: Seen and examined at bedside. Patient is new to me, information obtained from chart review and patient report. Still is a little short of breath but overall improved. - Exam Vitals: Temp Pulse Resp BP Pulse Ox 97.7 F 102 16 97/54 98 05/01/19 11:12 05/01/19 11:12 05/01/19 11:12 05/01/19 11:12 05/01/19 11:12 Exam: CONSTITUTIONAL: Patient appears as an age appropriate female well developed, in no acute distress. EYES Clear sclerae, bilateral pupils are equal, reactive to light and accommodation. Extraocular movements are intact RESPIRATORY: No accessory muscle use, bilateral diffuse wheezing to auscultation, no crackles/rales. CARDIOVASCULAR: Regular heart rate, normal S1 and S2, no murmurs GASTROINTESTINAL: bowel sounds present, soft, no tenderness. No hepatosplenomegaly. No bilateral CVA tenderness MUSCULOSKELETAL: Joints in normal range of motion, no clubbing, no edema, no cyanosis. Bilateral peripheral pulses 2+ LYMPHATIC no lymphadenopathy in neck, groin and axilla bilaterally, no thyromegaly. NEUROLOGIC: CN II to XII are grossly intact, no focal neurological deficit. Deep tendon reflexes 2+ bilaterally. Normal light touch sensation to upper and lower extremity PSYCHIATRIC: Oriented x3, with good insight, mood is euthymic. No hallucinations or delusions. SKIN: Skin warm and dry, no rashes, no open wound. - Assessment and Plan (1) Metabolic encephalopathy Current Visit: Yes Status: Acute Assessment and Plan: from hypoxia hypercapnia, resolved (2) Acute exacerbation of chronic obstructive pulmonary disease (COPD) Current Visit: Yes Status: Acute Assessment and Plan: from COPD exacerbation, improved, off BIPAP. Cont steroids (3) CAD (coronary artery disease) Current Visit: No Status: Chronic Assessment and Plan: per hx. Cont home ASA, Plavix, statin (4) Lung cancer Current Visit: No Status: Chronic Assessment and Plan: Squamous cell lung cancer, Stage IV lung cancer chest x-ray shows progressive metastatic disease. Plan for hospice at discharge (5) Acute on chronic systolic and diastolic heart failure, NYHA class 4 Current Visit: Yes Status: Acute Assessment and Plan: suspected. Cont lasix - Time Spent with Patient Total time spent is greater than 50% in coordination of care (as documented) at patient's floor/unit and/or counseling patient: - VTE Reasons for not Prescribing Prophylaxis: Not indicated-Anticoagulated or INR therapeutic Consult Discharge Plan - Plan Referrals: Maisha Ruth, [employer] DRIVER [Primary Care Provider] - (3) CAD (coronary artery disease) Qualifiers: Coronary Disease-Associated Artery/Lesion type: [place] artery [place] vs. transplanted heart: unspecified whether [place] or transplanted heart Associated angina: angina presence unspecified Qualified Code(s): I25.10 - Atherosclerotic heart disease of [place] coronary artery without angina pectoris (4) Lung cancer Qualifiers: Laterality: right Lung location: upper lobe of lung Qualified Code(s): C34.11 - Malignant neoplasm of upper lobe, right bronchus or lung
[2019-05-01] MEDS: lamoTRIgine 100 MG TABLET PO SCH (21:13)
[2019-05-01] MEDS: Melatonin 3 MG TABLET PO SCH (21:13)
[2019-05-01] MEDS: Insulin DETEMIR 100 UNIT/ML X5UNITS SQ SCH (21:13)
[2019-05-01] MEDS: risperiDONE 1 MG TABLET PO SCH (21:14)
[2019-05-02] MEDS: *HR* OxyCODONE Immed Rel 5 MG TABLET PO PRN ×3 (03:51→21:52)
[2019-05-02] MEDS: Budesonide/Formoterol 160/4.5 1 PUFF INH IH SCH ×2 (07:48→20:01)
[2019-05-02] MEDS: Tiotropium 18 MCG inhalation IH SCH (07:48)
[2019-05-02] MEDS: predniSONE 20 MG TABLET PO SCH (08:33)
[2019-05-02] MEDS: Apixaban 5 MG TABLET PO SCH ×2 (08:33→21:33)
[2019-05-02] MEDS: Furosemide 40 MG TABLET PO SCH ×2 (08:33→16:53)
[2019-05-02] MEDS: *HR* Amiodarone 200 MG TABLET PO SCH (08:33)
[2019-05-02] MEDS: Nicotine 14 MG PATCH.TD24 TD SCH (08:34)
[2019-05-02] MEDS: Insulin LISPRO 300 UNITS/3 ML VIAL SQ SCH ×4 (08:38→21:34)
[2019-05-02] MEDS: *HR* HYDROcodone/Acet 7.5/325 mg TABLET PO PRN (08:41)
--- NOTE | 2019-05-02 14:26 | Event Note ---
Date of Encounter: 05/02/19 Time of Encounter: 11:40 Patient was seen today, sitting in bed, conversing with her visitors. She is feeling better today. She is looking forward to returning home with hospice tomorrow so she can see her cats. Symptoms including pain better.
[2019-05-02] MEDS: clonazePAM 1 MG TABLET PO PRN ×2 (16:53→22:55)
--- NOTE | 2019-05-02 17:28 | Internal Med Progress Note ---
Hospitalist Progress Note - Encounter Date of Encounter: 05/02/19 Time of Encounter: 17:27 - Subjective Interval History: Seen and examined at bedside. Says he feels about the same. Still short of breath and wheezing. - Exam Vitals: Temp Pulse Resp BP Pulse Ox 98.3 F 100 16 107/71 97 05/02/19 16:28 05/02/19 16:28 05/02/19 16:28 05/02/19 16:28 05/02/19 16:28 Exam: CONSTITUTIONAL: Patient appears as an age appropriate female well developed, in no acute distress. EYES Clear sclerae, bilateral pupils are equal, reactive to light and accommodation. Extraocular movements are intact RESPIRATORY: No accessory muscle use, bilateral diffuse wheezing to auscultation, no crackles/rales. CARDIOVASCULAR: Regular heart rate, normal S1 and S2, no murmurs GASTROINTESTINAL: bowel sounds present, soft, no tenderness. No hepatosplenomegaly. No bilateral CVA tenderness MUSCULOSKELETAL: Joints in normal range of motion, no clubbing, no cyanosis. Bilateral peripheral pulses 2+. Positive bilateral lower extremity moderate pitting edema. Interstitial edema upper extremities LYMPHATIC no lymphadenopathy in neck, groin and axilla bilaterally, no thyromegaly. NEUROLOGIC: CN II to XII are grossly intact, no focal neurological deficit. Deep tendon reflexes 2+ bilaterally. Normal light touch sensation to upper and lower extremity PSYCHIATRIC: Oriented x3, with good insight, mood is euthymic. No hallucinations or delusions. SKIN: Skin warm and dry, no rashes, scattered petechiae bilateral lower extremities. - Assessment and Plan (1) Metabolic encephalopathy Current Visit: Yes Status: Acute Assessment and Plan: from hypoxia hypercapnia, now resolved. Mentation back to baseline (2) Acute exacerbation of chronic obstructive pulmonary disease (COPD) Current Visit: Yes Status: Acute Assessment and Plan: from COPD exacerbation, improved, off BIPAP. Cont steroids (3) CAD (coronary artery disease) Current Visit: No Status: Chronic Assessment and Plan: per hx. Cont home ASA, Plavix, statin (4) Lung cancer Current Visit: No Status: Chronic Assessment and Plan: Squamous cell lung cancer, Stage IV lung cancer chest x-ray shows progressive metastatic disease. Plan for hospice at discharge (5) Acute on chronic systolic and diastolic heart failure, NYHA class 4 Current Visit: Yes Status: Acute Assessment and Plan: suspected. Cont lasix - Time Spent with Patient Total time spent is greater than 50% in coordination of care (as documented) at patient's floor/unit and/or counseling patient: - VTE Reasons for not Prescribing Prophylaxis: Not indicated-Anticoagulated or INR therapeutic Consult Discharge Plan - Plan Referrals: Maisha Ruth, [employer] ESTIMATOR [Primary Care Provider] - (3) CAD (coronary artery disease) Qualifiers: Coronary Disease-Associated Artery/Lesion type: [place] artery [place] vs. transplanted heart: unspecified whether [place] or transplanted heart Associated angina: angina presence unspecified Qualified Code(s): I25.10 - Atherosclerotic heart disease of [place] coronary artery without angina pectoris (4) Lung cancer Qualifiers: Laterality: right Lung location: upper lobe of lung Qualified Code(s): C34.11 - Malignant neoplasm of upper lobe, right bronchus or lung
[2019-05-02] MEDS: risperiDONE 1 MG TABLET PO SCH (21:34)
[2019-05-02] MEDS: lamoTRIgine 100 MG TABLET PO SCH (21:34)
[2019-05-02] MEDS: Melatonin 3 MG TABLET PO SCH (21:34)
[2019-05-02] MEDS: Insulin DETEMIR 100 UNIT/ML X5UNITS SQ SCH (21:35)
[2019-05-03] MEDS: *HR* OxyCODONE Immed Rel 5 MG TABLET PO PRN ×2 (03:10→08:46)
[2019-05-03 07:22] VITALS: BP 158/78
[2019-05-03] MEDS: Nicotine 14 MG PATCH.TD24 TD SCH (08:45)
[2019-05-03] MEDS: Apixaban 5 MG TABLET PO SCH (08:46)
[2019-05-03] MEDS: predniSONE 20 MG TABLET PO SCH (08:46)
[2019-05-03] MEDS: clonazePAM 1 MG TABLET PO PRN (08:46)
[2019-05-03] MEDS: Furosemide 40 MG TABLET PO SCH (08:46)
[2019-05-03] MEDS: *HR* Amiodarone 200 MG TABLET PO SCH (08:47)
[2019-05-03] MEDS: Insulin LISPRO 300 UNITS/3 ML VIAL SQ SCH (08:48)
--- NOTE | 2019-05-03 10:26 | Discharge Summary ---
Orders not resulted at time of discharge: Pending orders 04/30/19 06:00 EKG [ECG 12 lead ECG] [ECG] AM 0600 Date of Encounter: 05/03/19 Time of Encounter: 10:23 Hospital course: Ms. Mace is a 64 year old female who has history of CHF COPD stage IV lung cancer disease CVA obesity history of PE, she was uncomplicated to skilled facility was found the unresponsive yesterday. Patient was sent here for COPD and CHF exacerbation. But the patient was comfort care only at the [facility], I had extensive discussion with patient and she is alert oriented 3, she wants continue comfort care only, wants hospice, she is tired of being back and forth from hospital to [facility]. She wants go home with hospice. Chest x-ray shows progressive metastatic disease. 1. Acute on chronic hypoxic and hypercapnic panic respiratory failure from COPD exacerbation, on comfort care 2, possible acute on chronic systolic and diastolic CHF exacerbation, conitnue home meds 3. Metabolic encephalopathy from hypoxia hypercapnia, resolved 4. Squamous cell lung cancer, Stage IV lung cancer chest x-ray shows progressive metastatic disease 5. Hypertension 6. adrenal Insufficiency, on dexemethasone 8 pulmonary emboli continue Eliquis 9. atrial fibrillation continue metoprolol eliquis 9 CAD and CVA ASA and Plavix, statin 10. DM adán 2 SSI 11. DNR-CC appreciate palliative care consult patient is discharge home with hospice Discharge discussed with: patient Time spent discussing smoking cessation with patient: 3 to 10 minutes - Time Spent with Patient Total time spent providing and/or coordinating discharge services: Time spent: Less than 30 minutes - Discharge Medications Prescriptions: New LORazepam Oral Conc [Ativan Oral Conc] 1 mg PO Q6HR PRN 4 Days #30 mls PRN Reason: Anxiety Oxycodone HCl [Oxaydo] 10 mg PO Q4H PRN 4 Days #24 tablet.orl PRN Reason: Pain Continued Doxepin [Sinequan] 25 mg PO HS Clopidogrel [Plavix] 75 mg PO HS Citalopram [CeleXA] 40 mg PO DAILY Simvastatin [Zocor] 40 mg PO HS Fludrocortisone Acetate [Florinef] 0.1 mg PO BID Ipratropium/Albuterol Neb [Duoneb] 3 ml IH Q8H PRN PRN Reason: sob/wheezing lamoTRIgine [Lamictal] 100 mg PO HS Lisinopril 2.5 mg PO DAILY PRN PRN Reason: SEE RX INSTRUCTIONS Lidocaine/Prilocaine [Emla] 1 appl TP AD Dexamethasone [Decadron] 6 mg PO DAILY Amiodarone [Cordarone] 200 mg PO DAILY tablet Budesonide/Formoterol 160/4.5 [Symbicort 160/4.5] 2 puff IH BID Levalbuterol Neb [Xopenex Neb] 3 ml IH Q4H PRN PRN Reason: Shortness Of Breath Omeprazole [PriLOSEC] 20 mg PO DAILY Metformin HCl [Fortamet] 500 mg PO DAILY risperiDONE [Risperidone] 1 mg PO HS Cilostazol [Pletal] 100 mg PO BID Apixaban [Eliquis] 5 mg PO BID Melatonin 3 mg PO HS Magnesium Hydroxide [Milk of Magnesia] 400 mg PO DAILY PRN PRN Reason: Constipation Home Medications: Cilostazol [Pletal] 100 mg PO BID 12/14/18 [History] risperiDONE [Risperidone] 1 mg PO HS 12/14/18 [History] Citalopram [CeleXA] 40 mg PO DAILY 12/15/18 [History] Clopidogrel [Plavix] 75 mg PO HS 12/15/18 [History] Doxepin [Sinequan] 25 mg PO HS 12/15/18 [History] Simvastatin [Zocor] 40 mg PO HS 12/15/18 [History] Fludrocortisone Acetate [Florinef] 0.1 mg PO BID 03/04/19 [History] Ipratropium/Albuterol Neb [Duoneb] 3 ml IH Q8H PRN 03/04/19 [History] Lisinopril 2.5 mg PO DAILY PRN 03/04/19 [History] lamoTRIgine [Lamictal] 100 mg PO HS 03/04/19 [History] Dexamethasone [Decadron] 6 mg PO DAILY 03/23/19 [History] Lidocaine/Prilocaine [Emla] 1 appl TP AD 03/23/19 [History] Amiodarone [Cordarone] 200 mg PO DAILY tablet 03/30/19 [Rx] Apixaban [Eliquis] 5 mg PO BID 04/29/19 [History] Magnesium Hydroxide [Milk of Magnesia] 400 mg PO DAILY PRN 04/29/19 [History] Melatonin 3 mg PO HS 04/29/19 [History] Budesonide/Formoterol 160/4.5 [Symbicort 160/4.5] 2 puff IH BID 04/30/19 [Hist ory] Levalbuterol Neb [Xopenex Neb] 3 ml IH Q4H PRN 04/30/19 [History] Metformin HCl [Fortamet] 500 mg PO DAILY 04/30/19 [History] Omeprazole [PriLOSEC] 20 mg PO DAILY 04/30/19 [History] LORazepam Oral Conc [Ativan Oral Conc] 1 mg PO Q6HR PRN 4 Days #30 mls 05/03/19 [Rx] Oxycodone HCl [Oxaydo] 10 mg PO Q4H PRN 4 Days #24 tablet.orl 05/03/19 [Rx] Allergies/Adverse Reactions: Allergy/AdvReac Type Severity Reaction Status Date / Time Penicillins Allergy Hives Verified 04/30/19 10:48 Date of admission: 04/29/19 13:55 Primary care physician: Maisha Ruth CNP Consults: 04/29/19 16:11 Consult to Nurse Navigator [CONS] Routine Comment: 04/29/19 16:18 Consult to Palliative Care [CONS] Routine Comment: Consulting Provider: Palliative Care Negrita Reason for Consult: hospice care Call Completed: Yes 04/29/19 18:29 Consult to Guest House Manager [CONS] Routine Reason for SW Consult: Patient from [facility] in [place]. patient requesting [facility] for [facility] care POA. 04/30/19 11:13 Consult to Occupational Therapy [CONS] Routine Comment: Evaluate, develop and implement POC Reason for Consult: NEEDS NEW AUTH TO RETURN TO ECF Does patient have active BEDREST order?: No Is patient medically & hemodynamically stable?: Yes Consult to Physical Therapy [CONS] Routine Comment: Evaluate, develop and implement POC Reason for Consult: NEEDS NEW AUTH TO RETURN TO ECF Does patient have active BEDREST order?: No Is patient medically & hemodynamically stable?: Yes - Constitutional Vitals: Temp Pulse Resp BP Pulse Ox 98.0 F 91 16 158/78 97 05/03/19 07:18 05/03/19 07:18 05/03/19 07:18 05/03/19 07:18 05/03/19 07:18 General appearance: Present: A&O X 3, pleasant Exam: CONSTITUTIONAL: Patient appears as an age appropriate female well developed, in no acute distress. EYES Clear sclerae, bilateral pupils are equal, reactive to light and accommodation. Extraocular movements are intact RESPIRATORY: No accessory muscle use, bilateral diffuse wheezing to auscultation, no crackles/rales. CARDIOVASCULAR: Regular heart rate, normal S1 and S2, no murmurs GASTROINTESTINAL: bowel sounds present, soft, no tenderness. No hepatosplenomegaly. No bilateral CVA tenderness MUSCULOSKELETAL: Joints in normal range of motion, no clubbing, no cyanosis. Bilateral peripheral pulses 2+. Positive bilateral lower extremity moderate pitting edema. Interstitial edema upper extremities LYMPHATIC no lymphadenopathy in neck, groin and axilla bilaterally, no thyromegaly. NEUROLOGIC: CN II to XII are grossly intact, no focal neurological deficit. Deep tendon reflexes 2+ bilaterally. Normal light touch sensation to upper and lower extremity PSYCHIATRIC: Oriented x3, with good insight, mood is euthymic. No hallucinations or delusions. SKIN: Skin warm and dry, no rashes, scattered petechiae bilateral lower extremities. - Patient Status Disposition: Hospice - Home Condition: Fair Functional capacity at discharge: bed bound - Discharge Instructions Follow Up With: Maisha Ruth CNP [Primary Care Provider] - - Diet and Activity Activity: wear oxygen at all times Diet: advance to your usual diet - VTE Reasons for not Prescribing Prophylaxis: Not indicated-Anticoagulated or INR therapeutic
[2019-05-03] MEDS: Tiotropium 18 MCG inhalation IH SCH ×2 (11:02→11:03)
[2019-05-03] MEDS: Budesonide/Formoterol 160/4.5 1 PUFF INH IH SCH (11:02)
== END 2019-05-03 11:50 | disposition hospice, home (50) ==
LOC: INTOOBSV 13:55 → SUATTDRO 13:55 → 2NNU 13:55 → 3BNU 23:07
PROVIDERS: ADMIT Internal Medicine Nephrology; ATTEND Hospitalist